=== PATIENT | male | born 1955 | race Caucasian/White ===

== ENCOUNTER 2016-03-28 11:35 | Inpatient (IN) | payer MEDICARE, OTHER ==
[~2016-03-28] VITALS: Ht 188 cm; Wt 80.4 kg
[~2016-03-28 11:35] MED LIST: AMIT10TA6 PO; AMIT25TA9 PO; ASP325T PO; ASP81TEC PO; ATEN100T88 PO; ATEN25TA; ATEN25TA PO; ATOR40TA PO; AZIT500T PO; Atenolol PO; CLOR7.5T3 PO; DIPH50VI2 IJ; DOCU100C37 PO; ESOM20CA PO; FLUT16SP22 NS; FLUT9.9S NS; FRSM40T PO; FURO20TA4 PO; FURO40TA PO; FURO40TA4 PO; HYDR-34 PO; HYDR-3812 PO; HYDR1TAB; HYDR1TAB PO; IPRA3AMP IH; IPRA3AMP11 INH; LISI-596 PO; LISI10TA; LISI10TA PO; LISI40TA PO; LORA10CA PO; LOVA20TA2 PO; MAGN400C PO; MAGNESIUM IV; MAGNESIUM SULFATE IV; METO-333 PO; METO100T2 PO; MTL5T PO; MULT-974 PO; NEBU1EAC2 MC; NF-ESOM40C PO; POTA-51 PO; POTA10TA36 PO; POTA20TA15 PO; POTA20TA8 PO; PRD20T PO; Prednisone PO; SODIUM CHLORIDE IV; SPIR25TA3 PO; SPIR50TA PO; VITA1TAB PO; [UNRECOGNIZED DRUG - CODE] IV
--- OUTSIDE RECORDS SUMMARY | 2016-03-28 12:08 | XMS REPORT | Continuity of Care Document ---
Author Author [facility] Organization [facility] Address Unknown Phone Unavailable Care Team Providers Care Gas Charger Name Role Phone Mary Jane Sanchez PCP [phone] Source Comments Some departments are not documenting in the electronic medical record. If you do not see the information that you expected, contact Release of Information in the Health Information Management department at [phone] for further assistance in locating additional records.[facility] Active Allergies and Adverse Reactions Not on [...]
[2016-03-28] MEDS ORDERED: fentaNYL INJECTION 100 MCG/2 ML AMP IV PRN (12:45)
[2016-03-28] MEDS ORDERED: PANTOPRAZOLE 40 MG/10 ML (PROTONIX) VIAL IV NR (13:00)
[2016-03-28 13:11] LABS: BASOPHILS % (AUTO) 0 % (0-10); EOSINOPHILS % (AUTO) 0 % (0-10); LYMPHOCYTES # (AUTO) 0.8 X 10^3 (1.0-4.0); LYMPHOCYTES % (AUTO) 5 % (12-44); MEAN CORPUSCULAR HEMOGLOBIN 33 PG (25-34); MEAN CORPUSCULAR HGB CONC 34 G/DL (32-36); MEAN CORPUSCULAR VOLUME 98 FL (80-99); MEAN PLATELET VOLUME 9.1 FL (7.4-10.4); MONOCYTES # (AUTO) 1.6 X 10^3 (0.0-1.0); MONOCYTES % (AUTO) 10 % (0-12); NEUTROPHILS # (AUTO) 14.6 X 10^3 (1.8-7.8); NEUTROPHILS % (AUTO) 86 % (42-75); PLATELET COUNT 428 10^3/uL (130-400); RED BLOOD COUNT 4.51 10^6/uL (4.35-5.85)
--- NOTE | 2016-03-28 13:23 | Diagnostic Imaging Report ---
INDICATION: Shortness of breath. PA and lateral chest: FINDINGS: There are postop changes from CABG surgery. Heart size and pulmonary vascularity are normal. Lungs are clear. There may be tiny left effusion. There is no pneumothorax. Left upper extremity PICC line tip projects over the SVC. IMPRESSION: Minimal blunting of the left costophrenic angle that could be pleural scarring versus a tiny effusion. Dictated by: Dictated on workstation # [id number]
[2016-03-28 13:29] LABS: BAND NEUTROPHILS 0 %; BASOPHILS % (MANUAL) 0 %; EOSINOPHILS % (MANUAL) 0 %; LYMPHOCYTES % (MANUAL) 5 %; NEUTROPHILS % (MANUAL) 86 %
[2016-03-28 13:32] LABS: ALBUMIN 4.7 G/DL (3.2-4.5); BILIRUBIN,TOTAL 0.5 MG/DL (0.1-1.0); CALCIUM 10.1 MG/DL (8.5-10.1); CREATININE SERUM 5.47 MG/DL (0.60-1.30); POTASSIUM 4.7 MMOL/L (3.6-5.0); TOTAL PROTEIN 8.6 G/DL (6.4-8.2)
[2016-03-28] MEDS ORDERED: ONDANSETRON 4 MG/2 ML (SDV) Z0FRAN ONE (13:33)
--- NOTE | 2016-03-28 13:41 | Diagnostic Imaging Report ---
PROCEDURE: CT abdomen and pelvis without contrast. TECHNIQUE: Multiple contiguous axial images were obtained through the abdomen and pelvis without the use of intravenous contrast. INDICATION: Abdominal distention. Intractable nausea and vomiting. FINDINGS: There is a small left pleural effusion and minimal left basilar atelectasis. There is dilatation of the stomach and multiple small bowel loops proximally. At the jejunoileal junction level, there is suggestion of transition point in the lower abdomen to the right of the midline around axial image #51 concerning for adhesions. There are bilateral indirect inguinal hernias containing bowel loops. These appear to be nonobstructive. The hernia on the left side is larger and extends to the scrotum and includes colon and small bowel loops. The level of obstruction does not appear to be related to the hernia. There are a few colonic diverticula. The liver, the gallbladder, the spleen, the adrenal glands, and the pancreas appear unremarkable for unenhanced exam. The abdominal aorta is normal in caliber. No para-aortic significantly enlarged lymph node is seen. The kidneys have no stones and no hydronephrosis. No significant free fluid or fluid collection in the abdomen or pelvis seen. The osseous structures demonstrate posterior fusion hardware involving L3-L5 levels. There is bony defect at the posterior medial aspect of the right iliac bone may relate to prior injury or bone graft donor site. IMPRESSION: High-grade distal jejunal obstruction with suggestion of a transition point in the lower abdomen to the right side of the midline. There are bilateral indirect inguinal hernias larger on the left side, and containing bowel loops extending to the scrotum. These do not appear to be responsible for the obstruction however. Dr. Sanchez was called and informed about the findings by Dr. Mclean at time of dictation Dictated by: Dictated on workstation # [id number]
[2016-03-28] MEDS: NS IV 1000 ML 1,000 ML IV SCH ×2 (13:44→20:27)
[2016-03-28] MEDS: ONDANSETRON 4 MG/2 ML (SDV) Z0FRAN IVP PRN (13:45)
[2016-03-28] MEDS: CATHETER FLUSH 10 ML SYR IV PRN (13:46)
[2016-03-28 14:22] LABS: ERYTHROCYTE SEDIMENTATION RATE 47 MM/HR (0-30)
[2016-03-28] MEDS ORDERED: LEVO50TA6 PO (14:27)
[2016-03-28] MEDS ORDERED: POTA20TA8 PO ×2 (14:27)
[2016-03-28] MEDS ORDERED: FURO-124 PO (14:39)
[2016-03-28] MEDS ORDERED: ESOM20CA32 PO (14:39)
[2016-03-28] MEDS ORDERED: HYDR-3812 PO (14:39)
[2016-03-28] MEDS ORDERED: DIPH50VI2 IV (14:45)
[2016-03-28] MEDS ORDERED: ACET325T38 PO (14:45)
[2016-03-28] MEDS ORDERED: MAGN1PIG IV (14:45)
[2016-03-28 15:30] VITALS: BP 120/76
[2016-03-28] MEDS: NICOTINE 21 MG (NICODERM) PATCH TD SCH (17:20)
[2016-03-28 19:25] VITALS: BP 96/62
[2016-03-28] MEDS: PANTOPRAZOLE 40 MG/10 ML (PROTONIX) VIAL IV SCH (20:27)
[2016-03-28] MEDS: LORazepam INJ 2 MG/ML (ATIVAN) VIAL IVP PRN (20:27)
--- NOTE | 2016-03-28 20:46 | History & Physicial ---
History of Present Illness History of Present Illness Reason for visit/HPI This is a 60 year old male who presented to my office today with a 2 day history of intractable nausea and vomiting and abdominal pain and distention. He had been seen at the [facility] walk-in clinic yesterday as he had not urinated for over 24hours. He states they said he had the viral stomach bug and sent him home. His condition worsened so he was brought to my office today where he was found to have a distended abdomen with no bowel sounds and there was concern for a small bowel obstruction. He was directly admitted from my office to the hospital. A CT scan of the abdomen and pelvis did confirm a small bowel obstruction so an NG tube was placed and surgery was consulted. Date of Admission Mar 28, 2016 at 12:00 pm I consulted on this patient on 03/28/16 20:41 Attending Physician Mary Jane Sanchez DO Admitting Physician Mary Jane Sanchez DO Consult Allergies and Home Medications Allergies Coded Allergies: morphine (Verified Adverse Reaction, Intermediate, CONFUSION, 12/04/14) Home Medications Acetaminophen 325 Mg Tablet 650 MG PO MoTh (Reported) Aspirin 81 Mg Tabec 81 MG PO Q48H (Reported) Diphenhydramine HCl 50 Mg/1 Ml Vial 25 MG IV MoTh (Reported) Esomeprazole Magnesium 22.3 Mg Capsule.dr 22.3 MG PO DAILY PRN PRN HEARTBURN ( Reported) Fluticasone Propionate 9.9 Ml [place].susp 1 SPR NS BID PRN PRN ALLERGIES ( Reported) Furosemide 40 Mg Tablet 80 MG PO Q48H (Reported) TAKES 2 (40MG) TABLETS Hydrocodone/Acetaminophen 1 Each Tablet 1 TAB PO Q4H PRN PRN PAIN (Reported) Ipratropium/Albuterol Sulfate 3 Ml Ampul.neb 3 ML IH QID (Reported) Levothyroxine Sodium 50 Mcg Tablet 50 MCG PO DAILY (Reported) Magnesium Sulfate/D5w 1 Gm/100 Ml Piggyback 2 GM IV MoTh (Reported) Metoprolol Tartrate 100 Mg Tablet 100 MG PO BID (Reported) Multivitamin 1 Each Tablet 1 TAB PO DAILY (Reported) Potassium Chloride 20 Meq Tab.er.prt 30 MEQ PO Q48H (Reported) TAKES 1 & 1/2 (20MEQ) TABLET Spironolactone 25 Mg Tablet 25 MG PO DAILY (Reported) Vitamin B Complex 1 Each Tablet 100 MG PO DAILY (Reported) Past Ikqqjsu-Kcnlrm-Bidsfy Hx Patient Social History Alcohol Use: Occasionally Uses Recreational Drug Use: No Smoking Status: Former Smoker Former smoker/When Quit: May 08, 2014 Type Used: Cigarettes Physical Abuse Screen: No Sexual Abuse: No Recent Foreign Travel: No Contact w/other who traveled: No Recent Hopitalizations: Yes Recent Infectious Disease Expo: No Immunizations Up To Date Tetanus Booster (TDap): Unknown Date of Pneumonia Vaccine: Nov 21, 2015 Date of Influenza Vaccine: Nov 21, 2015 Surgeries HX Surgeries: Yes (Left/right carotid, back (rods), neck sx, right leg, left ankle) Surgeries: CABG, Orthopedic, Vascular Surgery Respiratory Hx Respiratory Disorders: Yes (COPD, Home 02 at 2.5L ) Cardiovascular Hx Cardiovascular Disorders: Yes (CABG nov 2014, hypomagnesemia, low sodium level) Cardiac Disorders: Coronary Artery Disease, Hypertension Neurological Hx Neurological Disorders: No Reproductive System Hx Reproductive Disorders: No Sexually Transmitted Disease: No HIV/AIDS: No Genitourinary Hx Genitourinary Disorders: No Gastrointestinal Hx Gastrointestinal Disorders: No (inguinal hernia) Gastrointestinal Disorders: Gastroesophageal Reflux, Gastrointestinal Bleed Musculoskeletal Hx Musculoskeletal Disorders: Yes Musculoskeletal Disorders: Back Injury, Chronic Back Pain Endocrine Hx Endocrine Disorders: No HEENT HX ENT Disorders: Yes HEENT Disorders: Cataract Loss of Vision: Denies Hearing Impairment: Denies Cancer Hx Cancer: Yes Cancer: Skin Psychosocial Hx Psychiatric Problems: No Integumentary HX Skin/Integumentary Disorder: No Blood Transfusions Hx Blood Disorders: No Adverse Reaction to a Blood Tr: No Family Medical History Family Hx: Diabetes mellitus 19 FATHER 19 MOTHER FH: COPD (chronic obstructive pulmonary disease) 19 MOTHER Hypertension 19 FATHER 19 MOTHER Prostate cancer 19 FATHER Constitutional: weakness EENTM: No blurred vision, No dental problems, No double vision, No ear discharge, No ear pain, No epistaxis, No eye pain, No hearing loss, No hoarseness, No mouth pain, No mouth swelling, No no symptoms reported, No nose congestion, No nose pain, No other, No see HPI, No tearing, No throat pain, No throat swelling, No vision loss Respiratory: No no symptoms reported, No see HPI, No cough, No dyspnea on exertion, No hemoptysis, No orthopnea, No phlegm, No short of breath, No stridor , No wheezing, No other Cardiovascular: No no symptoms reported, No see HPI, No chest pain, No edema, No Hx of Intervention, No palpitations, No syncope, No vascular heart diseas, No other Gastrointestinal: abdominal pain loss of appetite nausea vomiting Genitourinary: decreased output Musculoskeletal: muscle weakness Skin: No no symptoms reported, No see HPI, No change in color, No change in hair/nails, No dryness, No hx of skin cancer, No lesions, No lumps, No pruritus , No rash, No other Psychiatric/Neurological: Weakness Physical Exam Vital Signs Vital Sign - Last 12Hours 03/28/16 03/28/16 12:10 15:30 Temp 97.1 Pulse 105 Resp 16 B/P 120/76 Pulse Ox 90 O2 Delivery Room Air Capillary Refill : General Appearance: Moderate Distress (due to pain) HEENT: Other (dry mucous membranes) Neck: Supple Respiratory: Lungs Clear Decreased Breath Sounds (bases) Cardiovascular: Systolic Murmur Gallop/S3 Tachycardia Gastrointestinal: Abnormal Bowel Sounds (rare) Distended Hernia (large bilateral inguinal--was able to reduce in my office) Tenderness (generalized) Rectal: Deferred Back: No CVA Tenderness Extremity: Non Tender No Calf Tenderness No Pedal Edema Neurologic/Psychiatric: Alert Oriented x3 Motor Weakness (generalized) Skin: Pallor Comments Laboratory Tests 03/28/16 13:01: Alanine Aminotransferase (ALT/SGPT) 15, Albumin 4.7H, Alkaline Phosphatase 80, Amylase Level 63, Anion Gap 20H, Aspartate Amino Transf (AST/SGOT) 20, BUN/ Creatinine Ratio 9, Band Neutrophils 0, Basophils # (Auto) 0.0, Basophils % ( Manual) 0, Basophils (%) (Auto) 0, Blood Morphology Comment NORMAL, Blood Urea Nitrogen 48H, Calcium Level 10.1, Carbon Dioxide Level 36H, Chloride Level 79L, Creatinine 5.47H, Eosinophils # (Auto) 0.0, Eosinophils % (Manual) 0, Eosinophils (%) (Auto) 0, Erythrocyte Sedimentation Rate 47H, Estimat Glomerular Filtration Rate 11, Glucose Level 128H, Hematocrit 44, Hemoglobin 15.1#, Lipase 9, Lymphocytes # (Auto) 0.8L, Lymphocytes % (Manual) 5, Lymphocytes (%) (Auto) 5L, Magnesium Level 2.0, Mean Corpuscular Hemoglobin 33, Mean Corpuscular Hemoglobin Concent 34, Mean Corpuscular Volume 98, Mean Platelet Volume 9.1, Monocytes # (Auto) 1.6H, Monocytes % (Manual) 9, Monocytes (%) (Auto) 10, Neutrophils # (Auto) 14.6H, Neutrophils % (Manual) 86, Neutrophils (%) (Auto) 86H, Platelet Count 428H, Potassium Level 4.7, Red Blood Count 4.51, Red Cell Distribution Width 13.0, Sodium Level 135, Total Bilirubin 0.5, Total Protein 8.6H, White Blood Count 17.0H Assessment/Plan Assessment and Plan 1. Acute Small Bowel Obstruction--NG tube, IV fentanyl prn, IV zofran prn, consult surgery 2. Acute Renal Failure from Dehydration--hydrate and monitor creatinine 3. COPD--stable 4. Bilateral Inguinal Hernias--reducible Clinical Quality Measures DVT/VTE Risk/Contraindication: Risk Factor Score Per Nursin RFS Level Per Nursing on Admit: 4+=Very High MARY JANE SANCHEZ DO Mar 28, 2016 8:46 pm
[2016-03-29 00:45] VITALS: BP 120/66
[2016-03-29] MEDS: fentaNYL INJECTION 100 MCG/2 ML AMP IV PRN ×6 (01:16→22:50)
[2016-03-29 01:30] LABS: BILIRUBIN,URINE NEGATIVE (NEGATIVE); KETONES,URINE NEGATIVE (NEGATIVE); LEUKOCYTE ESTERASE ,URINE NEGATIVE (NEGATIVE); NITRITE,URINE NEGATIVE (NEGATIVE); PH,URINE 5 (5-9); PROTEIN,URINE 3+ (NEGATIVE); UROBILINOGEN,URINE NORMAL (NORMAL)
[2016-03-29 01:39] LABS: CALCIUM OXALATE CRYSTALS,UR FEW /LPF; HYALINE CASTS, URINE 25-50 /LPF; SQUAMOUS EPITHELIAL CELL,UR 0-2 /HPF; WBC,URINE 0-2 /HPF
[2016-03-29] MEDS: NS IV 1000 ML 1,000 ML IV SCH ×3 (02:51→18:12)
[2016-03-29 03:15] VITALS: BP 136/88
[2016-03-29 05:39] LABS: BASOPHILS % (AUTO) 0 % (0-10); EOSINOPHILS # (AUTO) 0.1 10^3/uL (0.0-0.3); EOSINOPHILS % (AUTO) 1 % (0-10); LYMPHOCYTES # (AUTO) 0.9 X 10^3 (1.0-4.0); LYMPHOCYTES % (AUTO) 7 % (12-44); MEAN CORPUSCULAR HEMOGLOBIN 33 PG (25-34); MEAN CORPUSCULAR HGB CONC 34 G/DL (32-36); MEAN CORPUSCULAR VOLUME 99 FL (80-99); MEAN PLATELET VOLUME 9.2 FL (7.4-10.4); MONOCYTES # (AUTO) 1.7 X 10^3 (0.0-1.0); MONOCYTES % (AUTO) 13 % (0-12); NEUTROPHILS # (AUTO) 9.7 X 10^3 (1.8-7.8); NEUTROPHILS % (AUTO) 79 % (42-75); PLATELET COUNT 317 10^3/uL (130-400); RED BLOOD COUNT 4.02 10^6/uL (4.35-5.85); RED CELL DISTRIBUTION WIDTH 12.8 % (10.0-14.5); WHITE BLOOD COUNT 12.4 10^3/uL (4.3-11.0)
[2016-03-29 06:08] LABS: ALBUMIN 4.1 G/DL (3.2-4.5); BILIRUBIN,TOTAL 0.6 MG/DL (0.1-1.0); CALCIUM 8.5 MG/DL (8.5-10.1); CREATININE SERUM 6.53 MG/DL (0.60-1.30); MAGNESIUM 1.6 MG/DL (1.8-2.4); POTASSIUM 4.5 MMOL/L (3.6-5.0); TOTAL PROTEIN 7.2 G/DL (6.4-8.2)
[2016-03-29] MEDS: PANTOPRAZOLE 40 MG/10 ML (PROTONIX) VIAL IV SCH ×2 (07:57→20:30)
[2016-03-29] MEDS: NICOTINE PATCH REMOVAL TP SCH (07:59)
[2016-03-29 08:00] VITALS: BP 114/81
[2016-03-29] MEDS: NICOTINE 21 MG (NICODERM) PATCH TD SCH (08:11)
[2016-03-29] MEDS ORDERED: MAGNESIUM 1 GM/100 ML IVPB 100 ML IV ONE (08:45)
[2016-03-29] MEDS ORDERED: PANTOPRAZOLE 40 MG/10 ML (PROTONIX) VIAL IV SCH (09:00)
--- NOTE | 2016-03-29 10:22 | CONSULTATION REPORT ---
DATE OF ADMISSION: 03/28/2016 DATE OF CONSULTATION: 03/28/2016 ATTENDING PRIMARY CARE PHYSICIAN: Dr. Mary Jane Sanchez Mr. Raymond Petersen is a 60-year-old male known to us. We have seen him before in the past for placement of a left subclavian [place] implantable catheter for frequent IV draws as well as hypomagnesemia. This gentleman has had recurrent issues with hypomagnesemia requiring twice-weekly IV magnesium infusion. This gentleman was also seen for bilateral groin swelling. He reports that this has been around for some time however, over the years, has become larger and painful. Upon examination, he was found to have bilateral inguinal hernias with the left being significantly larger in size. Both are reducible, however painful to palpation. This gentleman also has had issues with electrolyte abnormalities as well as hypomagnesemia, again and chronic renal insufficiency with BUN and creatinine elevation. He also does have episodes of fluid retention and exacerbation of COPD, with shortness of breath. He reports that he had developed abdominal distention and nausea and vomiting starting yesterday. Due to this he has become dehydrated. A CT scan was performed, which did show worsening renal azotemia, as well as leukocytosis and abdominal pain and distention. A CT scan was performed, which did show a dilated stomach, as well as dilated proximal loops of small bowel with possible transition zone at the jejunum. Again, the bilateral inguinal hernias were identified but do not appear to be the cause of obstruction at this time. He does not have any peritoneal signs and this time. PAST MEDICAL HISTORY: 1. Hypertension. 2. Peripheral vascular disease. 3. Coronary artery disease. 4. Degenerative joint disease. 5. Hypomagnesemia. 6. Peptic ulcer disease. 7. Gastroesophageal reflux disease. 8. Renal failure. 9. COPD. PAST SURGERIES: 1. Bilateral carotid endarterectomy 2008. 2. Lumbar ORIF 1996. 3. C3-C5 ORIF 1996. 4. Bilateral ankle ORIF . 5. Exploratory laparotomy and oversew of bleeding peptic ulcer 2009. 6. Coronary artery bypass grafting 11/2014. ALLERGIES: MORPHINE MEDICATIONS: 1. Lisinopril 40 mg daily. 2. Magnesium IV twice weekly. 3. Atenolol 100 mg daily. 4. Nexium 10 mg daily. 5. Amitriptyline 10 mg at bedtime. 6. Aspirin 81 mg daily. 7. Furosemide 40 mg daily. 8. Fluticasone spray b.i.d. SOCIAL HISTORY: Positive smoke greater than 45 pack-years. He appears to be a daily social drinker. FAMILY HISTORY: Father prostate cancer. Mother and father diabetes. VITAL SIGNS: Stable. REVIEW OF SYSTEMS: This is a well-nourished male, currently guarded secondary to the abdominal distention and crampy pain. No chest pain, palpitations, diaphoresis. No nausea, vomiting. He does have exertional shortness of breath upon ambulation, nausea and vomiting, with crampy abdominal pain with associated distention. He states bowel movements are regular, however has not had one in the past day. No fever, chills, no recent inadvertent weight loss. PHYSICAL EXAMINATION: CHEST: Scattered rales and rhonchi, expiratory wheezes bilaterally. HEART: Regular. EXTREMITIES: +1 out of 3 bilateral lower extremity edema. Negative Homans sign. HEENT: No scleral icterus. No cervical lymphadenopathy. ABDOMEN: Distended soft with no peritoneal signs. There is bilateral inguinal hernias with the left larger in size, both of reducible; however, tender to palpation. LABS: WBC 17, hemoglobin 15.1, hematocrit 44, platelets 428. BUN 48, creatinine 5.47, glucose 128, magnesium 2.0, albumin is 4.7. ASSESSMENT AND PLAN: This is a 60-year-old male with abdominal pain and distention and signs and symptoms of proximal small bowel obstruction most likely secondary to adhesion tissue. He also does have bilateral inguinal hernias which are symptomatic, We have known about this and we are planning to repair this when he was more medically stable. This gentleman has had multiple medical issues and exacerbation of these medical problems in the past few years including the coronary artery disease, requiring surgery worsening, COPD, renal dysfunction, as well as hypomagnesemia and overall weakness and debility. We will continue with conservative management for now with IV hydration and NG tube decompression, as well as correction of any electrolyte abnormalities. If this persists, he may need a diagnostic laparoscopy versus a full laparotomy. At that same time, he may also benefit from bilateral inguinal hernia repairs, if there are no signs of infection or perforation. We will continue to follow his medical progress and follow his primary care physician as well. Job ID: [id number] Dictated Date: 03/28/2016 16:14:21 Superintendent System Operation Date: 03/29/2016 10:05:48/moises
--- NOTE | 2016-03-29 11:32 | Progress Note (SOAP) ---
Subjective Subjective/Events-last exam doing ok. worsening renal failure. passing flatus and decreased abdominal distention. Objective Exam Vital Signs Date Time Temp Pulse Resp B/P Pulse Ox O2 Delivery O2 Flow Rate FiO2 03/29/16 08:41 Room Air 03/29/16 08:00 97.9 67 20 114/81 94 Nasal Cannula 3.00 03/29/16 07:00 101 03/29/16 06:45 3.00 03/29/16 03:15 98.5 97 18 136/88 95 Nasal Cannula 3.00 03/29/16 01:00 114 03/29/16 00:45 98.2 101 20 120/66 96 Nasal Cannula 3.00 03/28/16 21:00 Room Air 03/28/16 19:25 96.4 104 20 96/62 91 Room Air 03/28/16 19:00 101 03/28/16 16:07 107 03/28/16 15:30 97.1 105 16 120/76 90 Room Air 03/28/16 12:10 Room Air I & O 03/29/16 07:00 Intake Total 0 ml Output Total 3525 ml Balance -3525 ml Capillary Refill : General Appearance: No Apparent Distress HEENT: PERRL/EOMI Neck: Full Range of Motion Respiratory: Chest Non Tender Lungs Clear Normal Breath Sounds Cardiovascular: Regular Rate, Rhythm Gastrointestinal: non tender soft distended Extremity: Normal Capillary Refill Neurologic/Psychiatric: Alert Oriented x3 Skin: Normal Color Lymphatic: No Adenopathy Results Lab Laboratory Tests 03/28/16 13:01: Alanine Aminotransferase (ALT/SGPT) 15, Albumin 4.7H, Alkaline Phosphatase 80, Amylase Level 63, Anion Gap 20H, Aspartate Amino Transf (AST/SGOT) 20, BUN/ Creatinine Ratio 9, Band Neutrophils 0, Basophils # (Auto) 0.0, Basophils % ( Manual) 0, Basophils (%) (Auto) 0, Blood Morphology Comment NORMAL, Blood Urea Nitrogen 48H, Calcium Level 10.1, Carbon Dioxide Level 36H, Chloride Level 79L, Creatinine 5.47H, Eosinophils # (Auto) 0.0, Eosinophils % (Manual) 0, Eosinophils (%) (Auto) 0, Erythrocyte Sedimentation Rate 47H, Estimat Glomerular Filtration Rate 11, Glucose Level 128H, Hematocrit 44, Hemoglobin 15.1#, Lipase 9, Lymphocytes # (Auto) 0.8L, Lymphocytes % (Manual) 5, Lymphocytes (%) (Auto) 5L, Magnesium Level 2.0, Mean Corpuscular Hemoglobin 33, Mean Corpuscular Hemoglobin Concent 34, Mean Corpuscular Volume 98, Mean Platelet Volume 9.1, Monocytes # (Auto) 1.6H, Monocytes % (Manual) 9, Monocytes (%) (Auto) 10, Neutrophils # (Auto) 14.6H, Neutrophils % (Manual) 86, Neutrophils (%) (Auto) 86H, Platelet Count 428H, Potassium Level 4.7, Red Blood Count 4.51, Red Cell Distribution Width 13.0, Sodium Level 135, Total Bilirubin 0.5, Total Protein 8.6H, White Blood Count 17.0H 03/29/16 01:05: Urine Bacteria FEWH, Urine Bilirubin NEGATIVE, Urine Calcium Oxalate Crystals FEWH, Urine Casts PRESENT, Urine Clarity SLIGHTLY CLOUDY, Urine Color YELLOW, Urine Crystals PRESENTH, Urine Culture Indicated YES, Urine Glucose (UA) NEGATIVE, Urine Hyaline Casts 25-50H, Urine Ketones NEGATIVE, Urine Leukocyte Esterase NEGATIVE, Urine Mucus NEGATIVE, Urine Nitrite NEGATIVE, Urine Protein 3 +H, Urine RBC NONE, Urine RBC (Auto) NEGATIVE, Urine Specific [place] 1.015L, Urine Squamous Epithelial Cells 0-2, Urine Urobilinogen NORMAL, Urine WBC 0-2, Urine pH 5 03/29/16 05:15: Alanine Aminotransferase (ALT/SGPT) 12, Albumin 4.1, Alkaline Phosphatase 58, Anion Gap 19H, Aspartate Amino Transf (AST/SGOT) 17, BUN/Creatinine Ratio 9, Basophils # (Auto) 0.0, Basophils (%) (Auto) 0, Blood Urea Nitrogen 62H, Calcium Level 8.5, Carbon Dioxide Level 32, Chloride Level 85L, Creatinine 6.53H , Eosinophils # (Auto) 0.1, Eosinophils (%) (Auto) 1, Estimat Glomerular Filtration Rate 9, Glucose Level 110H, Hematocrit 40, Hemoglobin 13.4, Lymphocytes # (Auto) 0.9L, Lymphocytes (%) (Auto) 7L, Magnesium Level 1.6L, Mean Corpuscular Hemoglobin 33, Mean Corpuscular Hemoglobin Concent 34, Mean Corpuscular Volume 99, Mean Platelet Volume 9.2, Monocytes # (Auto) 1.7H, Monocytes (%) (Auto) 13H, Neutrophils # (Auto) 9.7H, Neutrophils (%) (Auto) 79H , Platelet Count 317, Potassium Level 4.5, Red Blood Count 4.02L, Red Cell Distribution Width 12.8, Sodium Level 136, Total Bilirubin 0.6, Total Protein 7.2, White Blood Count 12.4H Assessment/Plan Assessment/Plan Assess & Plan/Chief Complaint PSBO and bilateral inguinal hernia. PSBO likely upper 1/3 small bowel from adhesions. worsening renal failure. will continue conservative management with NGT, IV fluids and bowel rest. Diagnosis/Problems: Clinical Quality Measures DVT/VTE Risk/Contraindication: Risk Factor Score Per Nursin RFS Level Per Nursing on Admit: 4+=Very High BRITTANY CHAPA MD Mar 29, 2016 11:32
[2016-03-29 12:00] VITALS: BP 124/87
--- NOTE | 2016-03-29 12:57 | Progress Note (SOAP) ---
Subjective Subjective/Events-last exam Fwup small bowel obstruction, acute renal failure, dehydration, COPD. Feeling much better. Passing flatus. Only small amount of urine this morning. Objective Exam Vital Signs Date Time Temp Pulse Resp B/P Pulse Ox O2 Delivery O2 Flow Rate FiO2 03/29/16 08:41 Room Air 03/29/16 08:00 97.9 67 20 114/81 94 Nasal Cannula 3.00 03/29/16 07:00 101 03/29/16 06:45 3.00 03/29/16 03:15 98.5 97 18 136/88 95 Nasal Cannula 3.00 03/29/16 01:00 114 03/29/16 00:45 98.2 101 20 120/66 96 Nasal Cannula 3.00 03/28/16 21:00 Room Air 03/28/16 19:25 96.4 104 20 96/62 91 Room Air 03/28/16 19:00 101 03/28/16 16:07 107 03/28/16 15:30 97.1 105 16 120/76 90 Room Air I & O 03/29/16 07:00 Intake Total 0 ml Output Total 3525 ml Balance -3525 ml Capillary Refill : General Appearance: No Apparent Distress HEENT: Other (NG tube in place) Neck: Supple Respiratory: Lungs Clear Decreased Breath Sounds Cardiovascular: Regular Rate, Rhythm Gallop/S3 Gastrointestinal: normal bowel sounds non tender soft Extremity: Non Tender No Calf Tenderness No Pedal Edema Neurologic/Psychiatric: Alert Oriented x3 Results Lab Laboratory Tests 03/28/16 13:01: Alanine Aminotransferase (ALT/SGPT) 15, Albumin 4.7H, Alkaline Phosphatase 80, Amylase Level 63, Anion Gap 20H, Aspartate Amino Transf (AST/SGOT) 20, BUN/ Creatinine Ratio 9, Band Neutrophils 0, Basophils # (Auto) 0.0, Basophils % ( Manual) 0, Basophils (%) (Auto) 0, Blood Morphology Comment NORMAL, Blood Urea Nitrogen 48H, Calcium Level 10.1, Carbon Dioxide Level 36H, Chloride Level 79L, Creatinine 5.47H, Eosinophils # (Auto) 0.0, Eosinophils % (Manual) 0, Eosinophils (%) (Auto) 0, Erythrocyte Sedimentation Rate 47H, Estimat Glomerular Filtration Rate 11, Glucose Level 128H, Hematocrit 44, Hemoglobin 15.1#, Lipase 9, Lymphocytes # (Auto) 0.8L, Lymphocytes % (Manual) 5, Lymphocytes (%) (Auto) 5L, Magnesium Level 2.0, Mean Corpuscular Hemoglobin 33, Mean Corpuscular Hemoglobin Concent 34, Mean Corpuscular Volume 98, Mean Platelet Volume 9.1, Monocytes # (Auto) 1.6H, Monocytes % (Manual) 9, Monocytes (%) (Auto) 10, Neutrophils # (Auto) 14.6H, Neutrophils % (Manual) 86, Neutrophils (%) (Auto) 86H, Platelet Count 428H, Potassium Level 4.7, Red Blood Count 4.51, Red Cell Distribution Width 13.0, Sodium Level 135, Total Bilirubin 0.5, Total Protein 8.6H, White Blood Count 17.0H 03/29/16 01:05: Urine Bacteria FEWH, Urine Bilirubin NEGATIVE, Urine Calcium Oxalate Crystals FEWH, Urine Casts PRESENT, Urine Clarity SLIGHTLY CLOUDY, Urine Color YELLOW, Urine Crystals PRESENTH, Urine Culture Indicated YES, Urine Glucose (UA) NEGATIVE, Urine Hyaline Casts 25-50H, Urine Ketones NEGATIVE, Urine Leukocyte Esterase NEGATIVE, Urine Mucus NEGATIVE, Urine Nitrite NEGATIVE, Urine Protein 3 +H, Urine RBC NONE, Urine RBC (Auto) NEGATIVE, Urine Specific [place] 1.015L, Urine Squamous Epithelial Cells 0-2, Urine Urobilinogen NORMAL, Urine WBC 0-2, Urine pH 5 03/29/16 05:15: Alanine Aminotransferase (ALT/SGPT) 12, Albumin 4.1, Alkaline Phosphatase 58, Anion Gap 19H, Aspartate Amino Transf (AST/SGOT) 17, BUN/Creatinine Ratio 9, Basophils # (Auto) 0.0, Basophils (%) (Auto) 0, Blood Urea Nitrogen 62H, Calcium Level 8.5, Carbon Dioxide Level 32, Chloride Level 85L, Creatinine 6.53H , Eosinophils # (Auto) 0.1, Eosinophils (%) (Auto) 1, Estimat Glomerular Filtration Rate 9, Glucose Level 110H, Hematocrit 40, Hemoglobin 13.4, Lymphocytes # (Auto) 0.9L, Lymphocytes (%) (Auto) 7L, Magnesium Level 1.6L, Mean Corpuscular Hemoglobin 33, Mean Corpuscular Hemoglobin Concent 34, Mean Corpuscular Volume 99, Mean Platelet Volume 9.2, Monocytes # (Auto) 1.7H, Monocytes (%) (Auto) 13H, Neutrophils # (Auto) 9.7H, Neutrophils (%) (Auto) 79H , Platelet Count 317, Potassium Level 4.5, Red Blood Count 4.02L, Red Cell Distribution Width 12.8, Sodium Level 136, Total Bilirubin 0.6, Total Protein 7.2, White Blood Count 12.4H Assessment/Plan Assessment/Plan Assess & Plan/Chief Complaint 1. Small Bowel Obstruction--continue NG tube and pain control 2. Acute Renal Failure/Dehydration--continue IVF and monitor Cr 3. COPD--stable 4. Hypomagnesemia--replace Mg Diagnosis/Problems: Clinical Quality Measures DVT/VTE Risk/Contraindication: Risk Factor Score Per Nursin RFS Level Per Nursing on Admit: 4+=Very High AIME CANO DO Mar 29, 2016 12:57 pm
[2016-03-29 16:00] VITALS: BP 135/72
[2016-03-29] MEDS: LORazepam INJ 2 MG/ML (ATIVAN) VIAL IVP PRN (16:50)
[2016-03-29 20:00] VITALS: BP 127/82
[2016-03-30] VITALS: BP 144/94
[2016-03-30] MEDS: NS IV 1000 ML 1,000 ML IV SCH ×5 (01:00→22:25)
[2016-03-30] MEDS: fentaNYL INJECTION 100 MCG/2 ML AMP IV PRN ×8 (01:06→19:50)
[2016-03-30 04:00] VITALS: BP 138/87
[2016-03-30 06:21] LABS: BASOPHILS % (AUTO) 0 % (0-10); EOSINOPHILS # (AUTO) 0.2 10^3/uL (0.0-0.3); EOSINOPHILS % (AUTO) 2 % (0-10); LYMPHOCYTES # (AUTO) 0.7 X 10^3 (1.0-4.0); LYMPHOCYTES % (AUTO) 7 % (12-44); MEAN CORPUSCULAR HEMOGLOBIN 33 PG (25-34); MEAN CORPUSCULAR HGB CONC 33 G/DL (32-36); MEAN CORPUSCULAR VOLUME 100 FL (80-99); MEAN PLATELET VOLUME 9.4 FL (7.4-10.4); MONOCYTES # (AUTO) 1.6 X 10^3 (0.0-1.0); MONOCYTES % (AUTO) 16 % (0-12); NEUTROPHILS # (AUTO) 7.2 X 10^3 (1.8-7.8); NEUTROPHILS % (AUTO) 75 % (42-75); PLATELET COUNT 338 10^3/uL (130-400); RED BLOOD COUNT 3.74 10^6/uL (4.35-5.85); RED CELL DISTRIBUTION WIDTH 12.6 % (10.0-14.5); WHITE BLOOD COUNT 9.6 10^3/uL (4.3-11.0)
[2016-03-30 06:39] LABS: CALCIUM 8.5 MG/DL (8.5-10.1); CREATININE SERUM 3.51 MG/DL (0.60-1.30); POTASSIUM 3.5 MMOL/L (3.6-5.0)
[2016-03-30 08:00] VITALS: BP 145/84
[2016-03-30] MEDS: NICOTINE 21 MG (NICODERM) PATCH TD SCH (08:20)
[2016-03-30] MEDS: PANTOPRAZOLE 40 MG/10 ML (PROTONIX) VIAL IV SCH ×2 (08:21→20:28)
[2016-03-30] MEDS: NICOTINE PATCH REMOVAL TP SCH (08:22)
--- NOTE | 2016-03-30 13:24 | Diagnostic Imaging Report ---
INDICATION: Bowel obstruction. COMPARISON: Correlation is limited to a CT performed on 07/17/2014. FINDINGS: There are air/fluid levels within abnormal small bowel dilatation in the mid to upper abdomen. The pattern is strongly suggestive of a substantial grade of small bowel obstruction. The air-containing luminal diameter of the small bowel in the right upper quadrant was 7.3 cm maximally. There is a small amount of air within the nondistended lower rectal vault. No abnormal stool volume. The remaining large bowel is airless aside from a small amount of gas at its hepatic flexure. There is a catheter in the stomach. IMPRESSION: The findings are suggestive of likely mid small bowel obstruction. There is an NG or OG catheter in the stomach. Dictated by: Dictated on workstation # [id number]
--- NOTE | 2016-03-30 13:42 | Progress Note (SOAP) ---
Subjective Subjective/Events-last exam passing flatus but no BM. getting SBFT today. Objective Exam Vital Signs Date Time Temp Pulse Resp B/P Pulse Ox O2 Delivery O2 Flow Rate FiO2 03/30/16 04:00 98.2 103 20 138/87 94 Nasal Cannula 3.00 03/30/16 01:00 110 03/30/16 00:00 97.4 114 22 144/94 93 Room Air 03/29/16 20:30 Room Air 03/29/16 20:00 97.3 114 18 127/82 97 Nasal Cannula 3.00 03/29/16 19:00 110 03/29/16 16:00 97.9 115 18 135/72 97 Nasal Cannula 3.00 I & O 03/30/16 07:00 Intake Total 3360 ml Output Total 6170 ml Balance -2810 ml Capillary Refill : General Appearance: No Apparent Distress HEENT: PERRL/EOMI Neck: Full Range of Motion Respiratory: Chest Non Tender Lungs Clear Normal Breath Sounds Cardiovascular: Regular Rate, Rhythm Gastrointestinal: normal bowel sounds Extremity: Normal Capillary Refill Neurologic/Psychiatric: Alert Oriented x3 Skin: Normal Color Lymphatic: No Adenopathy Results Lab Laboratory Tests 03/30/16 05:39: Anion Gap 17H, BUN/Creatinine Ratio 16, Basophils # (Auto) 0.0, Basophils (%) ( Auto) 0, Blood Urea Nitrogen 57H, Calcium Level 8.5, Carbon Dioxide Level 27, Chloride Level 92L, Creatinine 3.51H, Eosinophils # (Auto) 0.2, Eosinophils (%) (Auto) 2, Estimat Glomerular Filtration Rate 18, Glucose Level 87, Hematocrit 38L, Hemoglobin 12.4L, Lymphocytes # (Auto) 0.7L, Lymphocytes (%) (Auto) 7L, Mean Corpuscular Hemoglobin 33, Mean Corpuscular Hemoglobin Concent 33, Mean Corpuscular Volume 100H, Mean Platelet Volume 9.4, Monocytes # (Auto) 1.6H, Monocytes (%) (Auto) 16H, Neutrophils # (Auto) 7.2, Neutrophils (%) (Auto) 75, Platelet Count 338, Potassium Level 3.5L, Red Blood Count 3.74L, Red Cell Distribution Width 12.6, Sodium Level 136, White Blood Count 9.6 Microbiology 03/29/16 Urine Culture - Final, Complete Assessment/Plan Assessment/Plan Assess & Plan/Chief Complaint PSBO and bilateral inguinal hernia. PSBO likely upper 1/3 small bowel from adhesions. renal function improving. will continue conservative management with NGT, IV fluids and bowel rest. will get SBFT. Diagnosis/Problems: Clinical Quality Measures DVT/VTE Risk/Contraindication: Risk Factor Score Per Nursin RFS Level Per Nursing on Admit: 4+=Very High BRITTANY CHAPA MD Mar 30, 2016 1:42 pm
[2016-03-30 16:00] VITALS: BP 145/93
[2016-03-30] MEDS: LORazepam INJ 2 MG/ML (ATIVAN) VIAL IVP PRN (16:12)
[2016-03-30] MEDS: ONDANSETRON 4 MG/2 ML (SDV) Z0FRAN IVP PRN (17:45)
--- NOTE | 2016-03-30 18:12 | Progress Note (SOAP) ---
Subjective Subjective/Events-last exam Fwup small bowel obstruction, acute renal failure, dehydration, COPD. Passing flatus. Objective Exam Vital Signs Date Time Temp Pulse Resp B/P Pulse Ox O2 Delivery O2 Flow Rate FiO2 03/30/16 16:00 97.5 110 22 145/93 92 Nasal Cannula 3.00 03/30/16 14:04 3.00 03/30/16 08:00 98.8 110 24 145/84 93 Nasal Cannula 3.00 03/30/16 04:00 98.2 103 20 138/87 94 Nasal Cannula 3.00 03/30/16 01:00 110 03/30/16 00:00 97.4 114 22 144/94 93 Room Air 03/29/16 20:30 Room Air 03/29/16 20:00 97.3 114 18 127/82 97 Nasal Cannula 3.00 03/29/16 19:00 110 I & O 03/30/16 07:00 Intake Total 3360 ml Output Total 6170 ml Balance -2810 ml Capillary Refill : General Appearance: No Apparent Distress HEENT: Other (NG tube in place) Respiratory: Lungs Clear Decreased Breath Sounds (bases) Cardiovascular: Regular Rate, Rhythm Systolic Murmur Gallop/S3 Gastrointestinal: non tender abnormal bowel sounds (hypoactive) distended ( mild) Extremity: Non Tender No Calf Tenderness No Pedal Edema Neurologic/Psychiatric: Alert Oriented x3 Results Lab Laboratory Tests 03/30/16 05:39: Anion Gap 17H, BUN/Creatinine Ratio 16, Basophils # (Auto) 0.0, Basophils (%) ( Auto) 0, Blood Urea Nitrogen 57H, Calcium Level 8.5, Carbon Dioxide Level 27, Chloride Level 92L, Creatinine 3.51H, Eosinophils # (Auto) 0.2, Eosinophils (%) (Auto) 2, Estimat Glomerular Filtration Rate 18, Glucose Level 87, Hematocrit 38L, Hemoglobin 12.4L, Lymphocytes # (Auto) 0.7L, Lymphocytes (%) (Auto) 7L, Mean Corpuscular Hemoglobin 33, Mean Corpuscular Hemoglobin Concent 33, Mean Corpuscular Volume 100H, Mean Platelet Volume 9.4, Monocytes # (Auto) 1.6H, Monocytes (%) (Auto) 16H, Neutrophils # (Auto) 7.2, Neutrophils (%) (Auto) 75, Platelet Count 338, Potassium Level 3.5L, Red Blood Count 3.74L, Red Cell Distribution Width 12.6, Sodium Level 136, White Blood Count 9.6 Microbiology 03/29/16 Urine Culture - Final, Complete Assessment/Plan Assessment/Plan Assess & Plan/Chief Complaint 1. Small Bowel Obstruction--continue NG tube and pain control, small bowel follow through today 2. Acute Renal Failure/Dehydration--continue IVF and monitor Cr--Cr improved this AM 3. COPD--stable 4. Hypomagnesemia--recheck magnesium level in AM Diagnosis/Problems: Clinical Quality Measures DVT/VTE Risk/Contraindication: Risk Factor Score Per Nursin RFS Level Per Nursing on Admit: 4+=Very High AIME CANO DO Mar 30, 2016 18:12
[2016-03-30 19:35] VITALS: BP 136/84
[2016-03-30] MEDS ORDERED: DILTIAZEM 25 MG/5 ML INJ (CARDIZEM) VIAL IVP ONE (20:40)
[2016-03-30] MEDS ORDERED: DILTIAZEM 25 MG/5 ML INJ (CARDIZEM) VIAL ONE (20:45)
[2016-03-30] MEDS ORDERED: meTOprolol 5 MG/5 ML (LOPRESSOR) VIAL ONE (20:51)
[2016-03-30] MEDS: meTOprolol 5 MG/5 ML (LOPRESSOR) VIAL IV SCH (20:54)
[2016-03-30] MEDS ORDERED: MAGNESIUM 1 GM/100 ML IVPB 100 ML IV ONE ×2 (21:10→21:30)
[2016-03-30] MEDS ORDERED: ENOXAPARIN 80 MG/0.8 ML (LOVENOX) SYR SC ONE (22:00)
[2016-03-31] VITALS (41 sets, daily range): BP systolic 71–138; BP diastolic 41–87
[2016-03-31] MEDS ORDERED: SODIUM CHLORIDE (ADD-VANTAGE) 100 ML IV ONE (00:20)
[2016-03-31] MEDS ORDERED: DILTIAZEM 100 MG/VIAL (CARDIZEM) ADD-VANTAGE IV ONE (00:20)
[2016-03-31] MEDS: DILTIAZEM DRIP 100 MG in SODIUM CHLORIDE (ADD-VANTAGE) 100 ML IV SCH (00:25)
[2016-03-31] MEDS: LORazepam INJ 2 MG/ML (ATIVAN) VIAL IVP PRN ×3 (00:26→21:48)
[2016-03-31] MEDS: fentaNYL INJECTION 100 MCG/2 ML AMP IV PRN ×5 (00:26→21:48)
[2016-03-31] MEDS: meTOprolol 5 MG/5 ML (LOPRESSOR) VIAL IV SCH ×6 (04:00→20:52)
[2016-03-31 05:08] LABS: BASOPHILS % (AUTO) 0 % (0-10); EOSINOPHILS # (AUTO) 0.1 10^3/uL (0.0-0.3); EOSINOPHILS % (AUTO) 2 % (0-10); LYMPHOCYTES # (AUTO) 1.3 X 10^3 (1.0-4.0); LYMPHOCYTES % (AUTO) 17 % (12-44); MEAN CORPUSCULAR HEMOGLOBIN 33 PG (25-34); MEAN CORPUSCULAR HGB CONC 33 G/DL (32-36); MEAN CORPUSCULAR VOLUME 102 FL (80-99); MEAN PLATELET VOLUME 9.2 FL (7.4-10.4); MONOCYTES # (AUTO) 1.5 X 10^3 (0.0-1.0); MONOCYTES % (AUTO) 20 % (0-12); NEUTROPHILS # (AUTO) 4.7 X 10^3 (1.8-7.8); NEUTROPHILS % (AUTO) 61 % (42-75); PLATELET COUNT 328 10^3/uL (130-400); RED BLOOD COUNT 3.75 10^6/uL (4.35-5.85); RED CELL DISTRIBUTION WIDTH 12.4 % (10.0-14.5); WHITE BLOOD COUNT 7.7 10^3/uL (4.3-11.0)
[2016-03-31] MEDS: NS IV 1000 ML 1,000 ML IV SCH ×4 (05:24→17:12)
[2016-03-31 05:27] LABS: BAND NEUTROPHILS 3 %; BASOPHILS % (MANUAL) 0 %; EOSINOPHILS % (MANUAL) 0 %; LYMPHOCYTES % (MANUAL) 16 %; NEUTROPHILS % (MANUAL) 55 %; REACTIVE LYMPHOCYTES 2 %
[2016-03-31 05:32] LABS: ALBUMIN 3.5 G/DL (3.2-4.5); BILIRUBIN,TOTAL 0.5 MG/DL (0.1-1.0); CALCIUM 8.6 MG/DL (8.5-10.1); CREATININE SERUM 2.46 MG/DL (0.60-1.30); MAGNESIUM 2.2 MG/DL (1.8-2.4); PHOSPHORUS 4.9 MG/DL (2.3-4.7); POTASSIUM 3.2 MMOL/L (3.6-5.0); TOTAL PROTEIN 6.2 G/DL (6.4-8.2)
[2016-03-31] MEDS ORDERED: POTASSIUM CL 10MEQ/50ML IVPB 50 ML IV SCH (06:00)
[2016-03-31] MEDS: MAGNESIUM 1 GM/100 ML IVPB 100 ML IV SCH (06:00)
[2016-03-31] MEDS ORDERED: MAGNESIUM 1 GM/100 ML IVPB 100 ML IV SCH (06:00)
[2016-03-31] MEDS: POTASSIUM CL 10MEQ/50ML IVPB 50 ML IV SCH ×5 (06:00→09:52)
[2016-03-31] MEDS ORDERED: KCL 20 MEQ TAB (K-DUR) PO SCH (06:00)
[2016-03-31] MEDS: KCL 20 MEQ TAB (K-DUR) PO SCH (06:00)
--- NOTE | 2016-03-31 08:00 | Diagnostic Imaging Report ---
INDICATION: Dyspnea 0508 hrs. Since 03/28/2016, there is persistent air trapping. Interstitial markings are prominent in both lungs. There is blunting of left costophrenic sulcus. Nasogastric tube passes below the diaphragm with side port in the distal esophagus. Postoperative changes in the neck are again noted. IMPRESSION: Air trapping with small amount of left pleural fluid and/or thickening. There is no evidence of pneumothorax or other significant change. Dictated by: Dictated on workstation # [id number]
[2016-03-31] MEDS: PANTOPRAZOLE 40 MG/10 ML (PROTONIX) VIAL IV SCH ×2 (08:11→20:52)
[2016-03-31] MEDS: NICOTINE PATCH REMOVAL TP SCH (08:11)
[2016-03-31] MEDS: NICOTINE 21 MG (NICODERM) PATCH TD SCH (08:11)
--- NOTE | 2016-03-31 09:15 | Diagnostic Imaging Report ---
EXAMINATION: Gastrografin small bowel follow through. INDICATION: Small bowel obstruction. TECHNIQUE: Cloud Architect image of the abdomen was performed. Subsequently, the patient was given Gastrografin administered via NG tube and serial images of the abdomen were obtained. FINDINGS: Cloud Architect image of the abdomen demonstrate significantly dilated small bowel loops. No significant abnormality. There is only partial emptying of the contrast from the stomach into the proximal small bowel loops which are significantly dilated. At 7 hours there is still contrast mainly in the dilated proximal small bowel loops. The NG tube was pulled back to suction around the 7 hours film. A followup KUB taken at 19 hours demonstrate a minimal amount of contrast remaining with persistent dilatation of the proximal small bowel loops. There is some air in the rectum and distal colon seen. The lumbar spine fusion hardware is noted. IMPRESSION: Findings are suggestive of a high-grade proximal partial small bowel obstruction. Dictated by: Dictated on workstation # [id number]
[2016-03-31] MEDS: ONDANSETRON 4 MG/2 ML (SDV) Z0FRAN IVP PRN (12:24)
[2016-03-31] MEDS ORDERED: DIGOXIN 0.25 MG/ML (LANOXIN) 2 ML AMP ONE (13:38)
[2016-03-31] MEDS ORDERED: DIGOXIN 0.25 MG/ML (LANOXIN) 2 ML AMP IV NR ×2 (13:45→20:00)
--- NOTE | 2016-03-31 13:51 | Consultation-Cardiology ---
HPI-Cardiology Cardiology Consultation Date of Consultation 03/31/16 Date of Admission Indication: Afib with RVR HPI Patient is a 60 y.o. male with history of CAD, CHF, HTP, COPD, PAF. Presented to his PCP's office earlier this week with complains of intractable N/V with oliguria x 2-3 days. Was directly admitted, found to have SBO. NG tube currently in place. We were called for consultation after patient converted to afib last night. Currently in afib with RVR with HR in the 120-130's. Denies any CP, palpitations. Denies lightheadedness or syncope. Currently on Cardizem gtt as BP tolerates. Patient was seen and evaluated, he is a 60 years old gentleman with history of coronary artery disease, paroxysmal atrial fibrillation, COPD and pulmonary hypertension, admitted with abdominal distention and intractable nausea and vomiting, noted to have small bowel obstruction. Has been managed with conservatively with Dr. Stephens, last night he had atrial fibrillation with rapid ventricular response, transferred to the intensive care unit and started on Cardizem drip, still tachycardic at this time and borderline hypotensive. Denied any chest pain or palpitation. Home Medications & Allergies Allergies: Coded Allergies: morphine (Verified Adverse Reaction, Intermediate, CONFUSION, 12/04/14) Home Medication List Reviewed: Yes [id number] Hx Patient Social History Alcohol Use: Occasionally Uses Recreational Drug Use: No Smoking Status: Former Smoker Former smoker/When Quit: May 08, 2014 Type Used: Cigarettes Recent Foreign Travel: No Recent Infectious Disease Expo: No Recent Hopitalizations: Yes Physical Abuse Screen: No Sexual Abuse: No Immunizations Up To Date Tetanus Booster (TDap): Unknown Date of Pneumonia Vaccine: Nov 21, 2015 Date of Influenza Vaccine: Nov 21, 2015 Past Medical History CAD, CHF, HTN, SHAYNA, COPD, HTP Family Medical History Significant Family History: No Pertinent Family Hx Family History: Diabetes mellitus 19 FATHER 19 MOTHER FH: COPD (chronic obstructive pulmonary disease) 19 MOTHER Hypertension 19 FATHER 19 MOTHER Prostate cancer 19 FATHER Constitutional: No chills, No diaphoresis, No fever, No malaise EENTM: No blurred vision, No double vision, No epistaxis, No nose congestion, No nose pain, No vision loss Respiratory: No cough, No dyspnea on exertion Cardiovascular: No chest pain, No edema, No Hx of Intervention, No palpitations Gastrointestinal: abdominal pain nausea vomiting Genitourinary: decreased outputNo discharge, No frequency, No hematuria Musculoskeletal: No back pain Skin: No lesions, No rash Psychiatric/Neurological: Denies Anxiety, Denies Depressed Reviewed Test Results Reviewed Test Results Lab Laboratory Tests 03/31/16 05:00: Alanine Aminotransferase (ALT/SGPT) 11, Albumin 3.5, Alkaline Phosphatase 54, Anion Gap 16H, Aspartate Amino Transf (AST/SGOT) 16, BUN/Creatinine Ratio 24, Band Neutrophils 3, Basophils # (Auto) 0.0, Basophils % (Manual) 0, Basophils (% ) (Auto) 0, Blood Morphology Comment NORMAL, Blood Urea Nitrogen 58H, Calcium Level 8.6, Carbon Dioxide Level 27, Chloride Level 97L, Creatinine 2.46H, Eosinophils # (Auto) 0.1, Eosinophils % (Manual) 0, Eosinophils (%) (Auto) 2, Estimat Glomerular Filtration Rate 27, Glucose Level 78, Hematocrit 38L, Hemoglobin 12.5L, Lymphocytes # (Auto) 1.3, Lymphocytes % (Manual) 16, Lymphocytes (%) (Auto) 17, Magnesium Level 2.2, Mean Corpuscular Hemoglobin 33, Mean Corpuscular Hemoglobin Concent 33, Mean Corpuscular Volume 102H, Mean Platelet Volume 9.2, Monocytes # (Auto) 1.5H, Monocytes % (Manual) 24, Monocytes (%) (Auto) 20H, Neutrophils # (Auto) 4.7, Neutrophils % (Manual) 55, Neutrophils (%) (Auto) 61, Phosphorus Level 4.9H, Platelet Count 328, Potassium Level 3.2L, Reactive Lymphocytes 2, Red Blood Count 3.75L, Red Cell Distribution Width 12.4, Sodium Level 140, Total Bilirubin 0.5, Total Protein 6.2L, White Blood Count 7.7 Microbiology 03/29/16 Urine Culture - Final, Complete ECG Impression ECG Initial ECG Rhythm: A Fib/Flutter Physical Exam Vital Signs Vital Sign - Last 12Hours 03/28/16 03/28/16 03/29/16 12:10 15:30 00:45 Temp 97.1 Pulse 105 Resp 16 B/P 120/76 Pulse Ox 90 O2 Delivery Room Air O2 Flow Rate 3.00 Capillary Refill : General Appearance: WD/WN Moderate Distress HEENT: Normal ENT Inspection Neck: Full Range of Motion Normal Inspection Non Tender Supple Respiratory: Chest Non Tender Lungs Clear Normal Breath Sounds No Accessory Muscle Use No Respiratory Distress Cardiovascular: No Edema No Gallop No JVD Irregularly Irregular Tachycardia Gastrointestinal: No Pulsatile Mass Abnormal Bowel Sounds (diminished bowel sounds) Distended Tenderness Rectal: Deferred Back: No CVA Tenderness Extremity: Non Tender No Calf Tenderness Neurologic/Psychiatric: Alert Oriented x3 analysis manager II-XII Norm as Tested Skin: Normal Color Warm/Dry A/P-Cardiology Admission Diagnosis Afib with RVR CAD HTN SBO Assessment/Plan PAF- currently patient in afib with RVR, HR in the 130's. On Cardizem gtt currently, unable to increase secondary to hypotension. Will add digoxin 0.25mg IV. Start on therapeutic Lovenox. Obtain 2D Echo. Continue to monitor telemetry. If a fib continues to be unstable may consider Amiodarone and DIAN with cardioversion. [id number] score of 5, yearly risk of stroke without OAC is 6.7%. Will start patient on Lovenox. CAD- history of CABG x 1 last year, done at [place]. I will try to obtain copy for our records. Clinically stable, continue to monitor. SBO-NG tube in place. Dr. Stephens and Dr. Sanchez following Acute on chronic renal insufficiency- continue IVF's and continue to monitor. Dehydration- continue IVF's and continue to monitor. HTN- currently hypotensive. Continue cardizem as BP tolerates. SHAYNA- history of bilat CEA in the past by Dr. Spencer. Continue to monitor as outpatient. Hx of CVA COPD HTP- most recent 2D Echo available from 03/07 revealed PA 85mmHg. Re-eval 2D Echo. Tobaccoism Hypokalemia- replace, monitor. Hypomagnesemia- improved. Continue to monitor. Thank you for allowing us to participate in the management of Mr. Petersen. This is Cherie Armstrong PA-C as a scribe for Dr. Juárez. Patient was seen and evaluated with Cherie, interviewed the patient, obtained history and performed physical examination. Patient is tachycardic, had distended abdomen with absent bowel sounds at this point. He is borderline hypotensive. I reviewed the note and agreed with the current scribe, made a few changes and used Italic Font, patient has been seen in [facility] had CABG 1 done over a year ago, had history of atrial fibrillation in the past, not on oral anticoagulation, reported history of TIA and carotid endarterectomy. Currently in atrial fibrillation with rapid ventricular response, will review echocardiogram, unable to tolerate Cardizem drip due to hypotension, I'll bolus him with normal saline and continue with aggressive hydration, monitor blood pressure, start low-dose digoxin with close monitoring to the dig level due to his kidney function. Planning for cardioversion if he continued to be unstable. Clinical Quality Measures DVT/VTE Risk/Contraindication: Risk Factor Score Per Nursin RFS Level Per Nursing on Admit: 4+=Very High CHERIE OCONNELL Mar 31, 2016 13:51 PAYTON JUÁREZ MD Mar 31, 2016 14:15
[2016-03-31] MEDS ORDERED: CHLORASEPTIC SPRAY 177 ML LIQUID MC PRN (14:30)
--- NOTE | 2016-03-31 15:34 | Progress Note (SOAP) ---
Subjective Subjective/Events-last exam development of a fib with RVR and mild hypotension. started on cardizem gtt and therpeutic lovenox. SBFT did show high-grade obstruction at jejenum however symptoms slightly improving with passing flatus and less abd distention. Objective Exam Vital Signs Date Time Temp Pulse Resp B/P Pulse Ox O2 Delivery O2 Flow Rate FiO2 03/31/16 13:21 97.4 03/31/16 13:00 124 03/31/16 12:25 97.4 03/31/16 08:00 Nasal Cannula 3.00 03/31/16 08:00 97.4 Nasal Cannula 3.00 03/31/16 07:00 118 03/31/16 06:45 123 10 103/63 97 Nasal Cannula 3.00 03/31/16 06:30 126 24 88/66 96 Nasal Cannula 3.00 03/31/16 06:15 117 24 88/70 96 Nasal Cannula 3.00 03/31/16 06:00 125 21 81/53 87 Nasal Cannula 3.00 03/31/16 05:45 146 25 83/65 88 Nasal Cannula 3.00 03/31/16 05:30 174 26 77 Nasal Cannula 3.00 03/31/16 05:15 140 19 100/73 88 Nasal Cannula 3.00 03/31/16 05:00 128 24 91/86 90 Nasal Cannula 3.00 03/31/16 04:45 140 33 117/87 97 Nasal Cannula 3.00 03/31/16 04:30 126 35 122/53 95 Nasal Cannula 3.00 03/31/16 04:15 116 20 105/62 98 Nasal Cannula 3.00 03/31/16 04:00 131 22 75/60 96 Nasal Cannula 3.00 03/31/16 03:45 131 23 91/60 96 Nasal Cannula 3.00 03/31/16 03:30 128 22 103/62 97 Nasal Cannula 3.00 03/31/16 03:15 126 23 84/62 97 Nasal Cannula 3.00 03/31/16 03:00 128 21 83/65 97 Nasal Cannula 3.00 03/31/16 02:45 128 23 78/69 97 Nasal Cannula 3.00 03/31/16 02:30 134 25 95/60 97 Nasal Cannula 3.00 03/31/16 02:15 120 19 81/61 98 Nasal Cannula 3.00 03/31/16 02:00 122 25 89/71 97 Nasal Cannula 3.00 03/31/16 01:45 137 25 90/72 97 Nasal Cannula 3.00 03/31/16 01:30 129 23 78/63 97 Nasal Cannula 3.00 03/31/16 01:15 135 25 83/57 97 Nasal Cannula 3.00 03/31/16 01:00 140 03/31/16 01:00 140 23 84/42 97 Nasal Cannula 3.00 03/31/16 00:45 134 23 86/56 96 Nasal Cannula 3.00 03/31/16 00:30 142 28 105/61 88 Nasal Cannula 3.00 03/31/16 00:26 142 03/31/16 00:25 151 03/31/16 00:15 147 23 90/72 87 Nasal Cannula 3.00 03/31/16 00:11 140 12 108/84 89 Nasal Cannula 3.00 03/31/16 00:00 97.6 Nasal Cannula 3.00 03/31/16 00:00 Nasal Cannula 3.00 03/30/16 19:50 Room Air 03/30/16 19:35 97.8 114 22 136/84 94 OxyMask 3.00 03/30/16 19:00 114 03/30/16 16:00 97.5 110 22 145/93 92 Nasal Cannula 3.00 I & O 03/31/16 07:00 Intake Total 3100 ml Output Total 5150 ml Balance -2050 ml Capillary Refill : General Appearance: No Apparent Distress HEENT: PERRL/EOMI Neck: Full Range of Motion Respiratory: Chest Non Tender Lungs Clear Cardiovascular: Regular Rate, Rhythm Gastrointestinal: soft distended Extremity: Normal Capillary Refill Neurologic/Psychiatric: Alert Oriented x3 Skin: Normal Color Lymphatic: No Adenopathy Results Lab Laboratory Tests 03/31/16 05:00: Alanine Aminotransferase (ALT/SGPT) 11, Albumin 3.5, Alkaline Phosphatase 54, Anion Gap 16H, Aspartate Amino Transf (AST/SGOT) 16, BUN/Creatinine Ratio 24, Band Neutrophils 3, Basophils # (Auto) 0.0, Basophils % (Manual) 0, Basophils (% ) (Auto) 0, Blood Morphology Comment NORMAL, Blood Urea Nitrogen 58H, Calcium Level 8.6, Carbon Dioxide Level 27, Chloride Level 97L, Creatinine 2.46H, Eosinophils # (Auto) 0.1, Eosinophils % (Manual) 0, Eosinophils (%) (Auto) 2, Estimat Glomerular Filtration Rate 27, Glucose Level 78, Hematocrit 38L, Hemoglobin 12.5L, Lymphocytes # (Auto) 1.3, Lymphocytes % (Manual) 16, Lymphocytes (%) (Auto) 17, Magnesium Level 2.2, Mean Corpuscular Hemoglobin 33, Mean Corpuscular Hemoglobin Concent 33, Mean Corpuscular Volume 102H, Mean Platelet Volume 9.2, Monocytes # (Auto) 1.5H, Monocytes % (Manual) 24, Monocytes (%) (Auto) 20H, Neutrophils # (Auto) 4.7, Neutrophils % (Manual) 55, Neutrophils (%) (Auto) 61, Phosphorus Level 4.9H, Platelet Count 328, Potassium Level 3.2L, Reactive Lymphocytes 2, Red Blood Count 3.75L, Red Cell Distribution Width 12.4, Sodium Level 140, Total Bilirubin 0.5, Total Protein 6.2L, White Blood Count 7.7 Microbiology 03/29/16 Urine Culture - Final, Complete Assessment/Plan Assessment/Plan Assess & Plan/Chief Complaint PSBO and bilateral inguinal hernia. PSBO likely upper 1/3 small bowel from adhesions. renal function improving. will continue conservative management with NGT, IV fluids and bowel rest. has developed a-fib with RVR and now on cardizem gtt and therapeutic lovenox. will get another PICC in am(04/01) and start TPN Diagnosis/Problems: Clinical Quality Measures DVT/VTE Risk/Contraindication: Risk Factor Score Per Nursin RFS Level Per Nursing on Admit: 4+=Very High BRITTANY CHAPA MD Mar 31, 2016 3:34 pm
[2016-03-31] MEDS ORDERED: RT-ALBUTEROL/IPRATROPIUM 3 ML (DUONEB) VIAL INH PRN (16:00)
[2016-03-31] MEDS: ENOXAPARIN 80 MG/0.8 ML (LOVENOX) SYR SC SCH (17:08)
[2016-03-31] MEDS: RT-ALBUTEROL/IPRATROPIUM 3 ML (DUONEB) VIAL INH SCH ×2 (18:26→22:05)
--- NOTE | 2016-03-31 19:07 | Progress Note (SOAP) ---
Subjective Subjective/Events-last exam Fwup small bowel obstruction, acute renal failure, dehydration, COPD. Went into A. Fib with RVR last night and had to be transferred to ICU and placed on cardizem drip and given lovenox. Heart rate still in 120s to 130s but unable to titrate drip due to blood pressure. Was also given IV lopressor. Had small bowel follow through yesterday but has not passed any barium through. Objective Exam Vital Signs Date Time Temp Pulse Resp B/P Pulse Ox O2 Delivery O2 Flow Rate FiO2 03/31/16 18:26 95 3.00 03/31/16 18:03 97.4 03/31/16 17:33 97.4 03/31/16 16:04 93 03/31/16 16:04 1.50 03/31/16 16:00 Nasal Cannula 3.00 03/31/16 16:00 158 11 138/84 Nasal Cannula 3.00 03/31/16 15:00 117 51 82/41 95 Nasal Cannula 3.00 03/31/16 14:00 116 26 102/74 97 Nasal Cannula 3.00 03/31/16 13:21 97.4 03/31/16 13:00 145 101/71 92 Nasal Cannula 3.00 03/31/16 13:00 124 03/31/16 12:25 97.4 03/31/16 12:00 Nasal Cannula 3.00 03/31/16 12:00 121 32 71/55 97 Nasal Cannula 3.00 03/31/16 11:00 129 28 84/69 94 Nasal Cannula 3.00 03/31/16 10:00 108 22 72/55 94 Nasal Cannula 3.00 03/31/16 09:00 103 14 77/58 Nasal Cannula 3.00 03/31/16 08:00 Nasal Cannula 3.00 03/31/16 08:00 97.4 Nasal Cannula 3.00 03/31/16 07:00 124 17 96/77 98 Nasal Cannula 3.00 03/31/16 07:00 118 03/31/16 06:45 123 10 103/63 97 Nasal Cannula 3.00 03/31/16 06:30 126 24 88/66 96 Nasal Cannula 3.00 03/31/16 06:15 117 24 88/70 96 Nasal Cannula 3.00 03/31/16 06:00 125 21 81/53 87 Nasal Cannula 3.00 03/31/16 05:45 146 25 83/65 88 Nasal Cannula 3.00 03/31/16 05:30 174 26 77 Nasal Cannula 3.00 03/31/16 05:15 140 19 100/73 88 Nasal Cannula 3.00 03/31/16 05:00 128 24 91/86 90 Nasal Cannula 3.00 03/31/16 04:45 140 33 117/87 97 Nasal Cannula 3.00 03/31/16 04:30 126 35 122/53 95 Nasal Cannula 3.00 03/31/16 04:15 116 20 105/62 98 Nasal Cannula 3.00 03/31/16 04:00 131 22 75/60 96 Nasal Cannula 3.00 03/31/16 03:45 131 23 91/60 96 Nasal Cannula 3.00 03/31/16 03:30 128 22 103/62 97 Nasal Cannula 3.00 03/31/16 03:15 126 23 84/62 97 Nasal Cannula 3.00 03/31/16 03:00 128 21 83/65 97 Nasal Cannula 3.00 03/31/16 02:45 128 23 78/69 97 Nasal Cannula 3.00 03/31/16 02:30 134 25 95/60 97 Nasal Cannula 3.00 03/31/16 02:15 120 19 81/61 98 Nasal Cannula 3.00 03/31/16 02:00 122 25 89/71 97 Nasal Cannula 3.00 03/31/16 01:45 137 25 90/72 97 Nasal Cannula 3.00 03/31/16 01:30 129 23 78/63 97 Nasal Cannula 3.00 03/31/16 01:15 135 25 83/57 97 Nasal Cannula 3.00 03/31/16 01:00 140 03/31/16 01:00 140 23 84/42 97 Nasal Cannula 3.00 03/31/16 00:45 134 23 86/56 96 Nasal Cannula 3.00 03/31/16 00:30 142 28 105/61 88 Nasal Cannula 3.00 03/31/16 00:26 142 03/31/16 00:25 151 03/31/16 00:15 147 23 90/72 87 Nasal Cannula 3.00 03/31/16 00:11 140 12 108/84 89 Nasal Cannula 3.00 03/31/16 00:00 97.6 Nasal Cannula 3.00 03/31/16 00:00 Nasal Cannula 3.00 03/30/16 19:50 Room Air 03/30/16 19:35 97.8 114 22 136/84 94 OxyMask 3.00 I & O 03/31/16 07:00 Intake Total 3100 ml Output Total 5150 ml Balance -2050 ml Capillary Refill : General Appearance: No Apparent Distress HEENT: Other (NG tube in place) Neck: Supple Respiratory: Lungs Clear Cardiovascular: Systolic Murmur Gallop/S3 Irregularly Irregular Gastrointestinal: non tender soft abnormal bowel sounds (hypoacitve) Extremity: Non Tender No Calf Tenderness No Pedal Edema Neurologic/Psychiatric: Alert Oriented x3 Results Lab Laboratory Tests 03/31/16 05:00: Alanine Aminotransferase (ALT/SGPT) 11, Albumin 3.5, Alkaline Phosphatase 54, Anion Gap 16H, Aspartate Amino Transf (AST/SGOT) 16, BUN/Creatinine Ratio 24, Band Neutrophils 3, Basophils # (Auto) 0.0, Basophils % (Manual) 0, Basophils (% ) (Auto) 0, Blood Morphology Comment NORMAL, Blood Urea Nitrogen 58H, Calcium Level 8.6, Carbon Dioxide Level 27, Chloride Level 97L, Creatinine 2.46H, Eosinophils # (Auto) 0.1, Eosinophils % (Manual) 0, Eosinophils (%) (Auto) 2, Estimat Glomerular Filtration Rate 27, Glucose Level 78, Hematocrit 38L, Hemoglobin 12.5L, Lymphocytes # (Auto) 1.3, Lymphocytes % (Manual) 16, Lymphocytes (%) (Auto) 17, Magnesium Level 2.2, Mean Corpuscular Hemoglobin 33, Mean Corpuscular Hemoglobin Concent 33, Mean Corpuscular Volume 102H, Mean Platelet Volume 9.2, Monocytes # (Auto) 1.5H, Monocytes % (Manual) 24, Monocytes (%) (Auto) 20H, Neutrophils # (Auto) 4.7, Neutrophils % (Manual) 55, Neutrophils (%) (Auto) 61, Phosphorus Level 4.9H, Platelet Count 328, Potassium Level 3.2L, Reactive Lymphocytes 2, Red Blood Count 3.75L, Red Cell Distribution Width 12.4, Sodium Level 140, Total Bilirubin 0.5, Total Protein 6.2L, White Blood Count 7.7 Microbiology 03/29/16 Urine Culture - Final, Complete Assessment/Plan Assessment/Plan Assess & Plan/Chief Complaint 1. Small Bowel Obstruction--continue NG tube and pain control, discussed with Dr. Stephens since did not pass barium through with small bowel follow through--he states will likely need surgery but need to get atrial fib under control first 2. Acute Renal Failure/Dehydration--continue IVF and monitor Cr--Cr improving daily 3. COPD--stable 4. Hypomagnesemia--stable, will monitor 5. Atrial Fibrillation with RVR--on cardizem drip, cover with lovenox since will likely need surgery, check 2-D ECHO and consult cardiology Diagnosis/Problems: Clinical Quality Measures DVT/VTE Risk/Contraindication: Risk Factor Score Per Nursin RFS Level Per Nursing on Admit: 4+=Very High AIME CANO DO Mar 31, 2016 19:07
[2016-03-31] MEDS ORDERED: meTOprolol 5 MG/5 ML (LOPRESSOR) VIAL IV SCH (20:50)
[2016-03-31] MEDS: BISACODYL 10 MG SUPP (DULCOLAX) PR SCH (20:52)
[2016-04-01] VITALS (16 sets, daily range): BP systolic 92–166; BP diastolic 56–95
[2016-04-01] MEDS: meTOprolol 5 MG/5 ML (LOPRESSOR) VIAL IV SCH ×6 (00:02→23:58)
[2016-04-01] MEDS: DILTIAZEM DRIP 100 MG in SODIUM CHLORIDE (ADD-VANTAGE) 100 ML IV SCH ×2 (00:12→16:15)
[2016-04-01] MEDS: NS IV 1000 ML 1,000 ML IV SCH ×3 (00:15→14:30)
[2016-04-01] MEDS: fentaNYL INJECTION 100 MCG/2 ML AMP IV PRN ×3 (00:15→20:19)
[2016-04-01] MEDS: RT-ALBUTEROL/IPRATROPIUM 3 ML (DUONEB) VIAL INH SCH ×4 (02:04→20:19)
[2016-04-01] MEDS: ENOXAPARIN 80 MG/0.8 ML (LOVENOX) SYR SC SCH ×2 (05:06→19:39)
--- NOTE | 2016-04-01 05:20 | Progress Note (SOAP) ---
Subjective Subjective/Events-last exam Fwup small bowel obstruction, acute renal failure, dehydration, COPD, Atrial fibrillation with RVR. Converted back to NSR overnight. Passed a small BM this AM. Objective Exam Vital Signs Date Time Temp Pulse Resp B/P Pulse Ox O2 Delivery O2 Flow Rate FiO2 04/01/16 04:00 93 20 102/57 96 Nasal Cannula 3.00 04/01/16 04:00 Nasal Cannula 3.00 04/01/16 04:00 98.0 04/01/16 03:00 95 24 104/56 97 Nasal Cannula 3.00 04/01/16 02:04 98 3.00 04/01/16 02:00 84 20 107/61 99 Nasal Cannula 3.00 04/01/16 01:00 89 22 92/59 96 Nasal Cannula 3.00 04/01/16 01:00 89 04/01/16 00:12 90 04/01/16 00:00 99.0 04/01/16 00:00 Nasal Cannula 3.00 04/01/16 00:00 96 24 129/74 98 Nasal Cannula 3.00 03/31/16 23:00 114 27 85/53 97 Nasal Cannula 3.00 03/31/16 22:05 94 3.00 03/31/16 22:00 98 18 94/53 96 Nasal Cannula 3.00 03/31/16 21:00 113 14 97/67 96 Nasal Cannula 3.00 03/31/16 20:00 115 11 97/62 96 Nasal Cannula 3.00 03/31/16 20:00 Nasal Cannula 3.00 03/31/16 19:00 129 23 116/78 96 Nasal Cannula 3.00 03/31/16 19:00 129 03/31/16 18:26 95 3.00 03/31/16 18:03 97.4 03/31/16 17:33 97.4 03/31/16 16:04 93 03/31/16 16:04 1.50 03/31/16 16:00 Nasal Cannula 3.00 03/31/16 16:00 158 11 138/84 Nasal Cannula 3.00 03/31/16 15:00 117 51 82/41 95 Nasal Cannula 3.00 03/31/16 14:00 116 26 102/74 97 Nasal Cannula 3.00 03/31/16 13:21 97.4 03/31/16 13:00 145 101/71 92 Nasal Cannula 3.00 03/31/16 13:00 124 03/31/16 12:25 97.4 03/31/16 12:00 Nasal Cannula 3.00 03/31/16 12:00 121 32 71/55 97 Nasal Cannula 3.00 03/31/16 11:00 129 28 84/69 94 Nasal Cannula 3.00 03/31/16 10:00 108 22 72/55 94 Nasal Cannula 3.00 03/31/16 09:00 103 14 77/58 Nasal Cannula 3.00 03/31/16 08:00 Nasal Cannula 3.00 03/31/16 08:00 97.4 Nasal Cannula 3.00 03/31/16 07:00 124 17 96/77 98 Nasal Cannula 3.00 03/31/16 07:00 118 03/31/16 06:45 123 10 103/63 97 Nasal Cannula 3.00 03/31/16 06:30 126 24 88/66 96 Nasal Cannula 3.00 03/31/16 06:15 117 24 88/70 96 Nasal Cannula 3.00 03/31/16 06:00 125 21 81/53 87 Nasal Cannula 3.00 03/31/16 05:45 146 25 83/65 88 Nasal Cannula 3.00 03/31/16 05:30 174 26 77 Nasal Cannula 3.00 I & O 04/01/16 07:00 Intake Total 3900 ml Output Total 1400 ml Balance 2500 ml Capillary Refill : General Appearance: No Apparent Distress HEENT: Other (NG tube in place) Neck: Supple Respiratory: Chest Non Tender Cardiovascular: Regular Rate, Rhythm Systolic Murmur Gallop/S3 Gastrointestinal: non tender soft abnormal bowel sounds (hypoactive) Extremity: Non Tender No Calf Tenderness No Pedal Edema Neurologic/Psychiatric: Alert Oriented x3 Results Lab Microbiology 03/29/16 Urine Culture - Final, Complete Assessment/Plan Assessment/Plan Assess & Plan/Chief Complaint 1. Small Bowel Obstruction--continue NG tube and pain control, small BM this AM 2. Acute Renal Failure/Dehydration--continue IVF and monitor Cr--Cr improving daily 3. COPD--stable 4. Hypomagnesemia--stable, will monitor 5. Atrial Fibrillation with RVR--back in NSR, still on cardizem drip so will await cardiology recommendations since is still NPO Diagnosis/Problems: Clinical Quality Measures DVT/VTE Risk/Contraindication: Risk Factor Score Per Nursin RFS Level Per Nursing on Admit: 4+=Very High AIME CANO DO Apr 01, 2016 5:20 am
[2016-04-01 05:26] LABS: BASOPHILS % (AUTO) 0 % (0-10); EOSINOPHILS # (AUTO) 0.1 10^3/uL (0.0-0.3); EOSINOPHILS % (AUTO) 1 % (0-10); LYMPHOCYTES # (AUTO) 1.1 X 10^3 (1.0-4.0); LYMPHOCYTES % (AUTO) 15 % (12-44); MEAN CORPUSCULAR HEMOGLOBIN 33 PG (25-34); MEAN CORPUSCULAR HGB CONC 33 G/DL (32-36); MEAN CORPUSCULAR VOLUME 102 FL (80-99); MEAN PLATELET VOLUME 9.7 FL (7.4-10.4); MONOCYTES # (AUTO) 1.2 X 10^3 (0.0-1.0); MONOCYTES % (AUTO) 16 % (0-12); NEUTROPHILS # (AUTO) 5.1 X 10^3 (1.8-7.8); NEUTROPHILS % (AUTO) 68 % (42-75); PLATELET COUNT 322 10^3/uL (130-400); RED BLOOD COUNT 3.64 10^6/uL (4.35-5.85); RED CELL DISTRIBUTION WIDTH 12.2 % (10.0-14.5); WHITE BLOOD COUNT 7.4 10^3/uL (4.3-11.0)
[2016-04-01 05:38] LABS: INR 1.1 (0.8-1.4); PROTHROMBIN TIME PATIENT 13.7 SEC (12.2-14.7)
[2016-04-01 05:49] LABS: ALBUMIN 3.2 G/DL (3.2-4.5); BILIRUBIN,TOTAL 0.3 MG/DL (0.1-1.0); CALCIUM 8.4 MG/DL (8.5-10.1); CREATININE SERUM 1.91 MG/DL (0.60-1.30); MAGNESIUM 1.7 MG/DL (1.8-2.4); PHOSPHORUS 3.7 MG/DL (2.3-4.7); POTASSIUM 3.5 MMOL/L (3.6-5.0); TOTAL PROTEIN 5.9 G/DL (6.4-8.2)
[2016-04-01] MEDS: POTASSIUM CL 10MEQ/50ML IVPB 50 ML IV SCH ×3 (06:00→07:40)
[2016-04-01] MEDS: KCL 20 MEQ TAB (K-DUR) PO SCH (06:00)
[2016-04-01] MEDS: MAGNESIUM 1 GM/100 ML IVPB 100 ML IV SCH ×3 (06:00→07:40)
--- NOTE | 2016-04-01 08:01 | Diagnostic Imaging Report ---
INDICATION:?Arrhythmia. Portable chest 4:50 AM. There is an NG tube projecting over the stomach. There are postop changes from a median sternotomy. Heart size and pulmonary vascularity are normal. Lungs are clear. IMPRESSION: Unremarkable postoperative chest. There is gaseous distention of small bowel suspicious for obstruction. Dictated by: Dictated on workstation # [id number]
[2016-04-01] MEDS: BISACODYL 10 MG SUPP (DULCOLAX) PR SCH ×2 (09:00→20:19)
[2016-04-01] MEDS ORDERED: TPN IV SCH (09:00)
[2016-04-01] MEDS: NICOTINE PATCH REMOVAL TP SCH (09:35)
[2016-04-01] MEDS: PANTOPRAZOLE 40 MG/10 ML (PROTONIX) VIAL IV SCH ×2 (09:35→20:19)
[2016-04-01] MEDS: NICOTINE 21 MG (NICODERM) PATCH TD SCH (09:35)
--- NOTE | 2016-04-01 10:15 | ECHOCARDIOGRAPHY REPORT ---
PROCEDURE PHYSICIAN: PAYTON BUTCHER DATE OF PROCEDURE: 03/31/2016 TWO DIMENSIONAL ECHOCARDIOGRAM REPORT PRIMARY PHYSICIAN: OTHER PHYSICIAN: REFERRING PHYSICIAN: Dr. Sanchez ORDERING PHYSICIAN: INDICATION FOR THE PROCEDURE: Atrial fibrillation MEASUREMENTS DERIVED VALUES LV DIAMETER (LAX) NORMALS NORMALS Diastolic 4. (3.6-5.2) Eject. Fract. 60% (60%+/-6%) Systolic (2.3-3.9) Diastolic Vol. % Shortening (0.22-0.42) Systolic Vol. Aortic Root IVS THICKNESS Diastolic 0.8 (0.6-1.1) LVPW THICKNESS Diastolic 0.8 (0.6-1.1) LA DIAMETER Systolic 3.8 (2.1-3.7) FINDINGS: 1. Technically difficult study. 2. The left ventricle is normal in size, tachycardia. Systolic function is normal. Estimated ejection fraction 60%. 3. The left atrium is normal in size. Echogenic density was noted. In some subcostal views in the left atrium which could be representing a thrombus or interatrial mass. 4. The right atrium and right ventricle are normal in size. No clot or thrombus were seen within the right side. 5. Mitral valve is calcified with mild mitral regurgitation. No mitral valve prolapse. No mitral valve stenosis. 6. Aortic valve leaflets were not well visualized. There is no significant aortic valve stenosis or regurgitation was seen. 7. Tricuspid valve is normal in morphology with mild tricuspid regurgitation. Doppler across tricuspid valve estimated pulmonary artery pressure of 51+ right atrial pressure. 8. Pulmonic valve was not visualized. 9. No pericardial effusion. CONCLUSION: 1. Echogenic density was noted in the left atrium which could be representing a thrombus or a mass. DIAN is recommended once the patient is more clinically stable. 2. Normal left ventricular size and systolic function. Estimated ejection fraction 60%. 3. Mild mitral and tricuspid regurgitation. Job ID: [id number] Dictated Date: 03/31/2016 18:56:58 Curing Machine Operator Date: 04/01/2016 10:10:28 / moises
--- NOTE | 2016-04-01 10:18 | Cardiology Progress Note ---
Subjective Subjective/Events-last exam Patient is in bed, feeling better, no new complaint, converted back to sinus rhythm last night. Had a bowel movement, feeling better. Review of Systems General: No Chills, No Night Sweats, No Fatigue, No Malaise, No Appetite, No Other HEENT: No Head Aches, No Visual Changes, No Eye Pain, No Ear Pain, No Dysphasia , No Sinus Congestion, No Post Nasal Drip, No Sore Throat, No Other Pulmonary: No Dyspnea, No Cough, No Pleuritic Chest Pain, No Other Cardiovascular: No: Chest Pain, Edema, Lt Headedness, Orthopnea, Other, Palpitations, Paroxysmal Noc. Dyspnea Objective-Cardiology Exam Last Set of Vital Signs Vital Signs 04/01/16 04/01/16 04/01/16 04/01/16 04:00 06:00 06:50 07:00 Temp 98.0 Pulse 120 Resp 12 B/P 133/80 Pulse Ox 97 O2 Delivery Nasal Cannula O2 Flow Rate 3.00 Capillary Refill : I&O Intake and Output 04/01/16 00:00 Intake Total 3900 ml Output Total 2200 ml Balance 1700 ml Intake Oral 700 ml IV Total 3200 ml Output Urine Total 1000 ml Gastric Drainage Total 1200 ml General: Alert, Oriented X3, Cooperative HEENT: Atraumatic, PERRLA Neck: Supple, No JVD, No Thyromegaly Lungs: Clear to Auscultation, Normal Air Movement Heart: Regular Rate, Normal S1, Normal S2, No Murmurs Abdomen: Soft, No Masses, Other Extremities: No Clubbing, No Cyanosis, No Edema, Normal Pulses, No Tenderness/ Swelling Skin: No Rashes, No Breakdown, No Significant Lesion Neuro: Normal Gait, Normal Speech, Strength at 5/5 X4 Ext, Normal Tone, Sensation Intact Psych/Mental Status: Mental Status NL, Mood NL Results Lab Laboratory Tests 04/01/16 04:55 A/P-Cardiology Admission Diagnosis Afib with RVR CAD HTN SBO Assessment/Plan Paroxysmal atrial fibrillation, status post Cardizem drip, converted last night to sinus rhythm, has been on digoxin and Cardizem, continue to monitor closely. I will start IV Lopressor and monitor his I's and response, stopped Cardizem drip for now. [id number] score of 5, yearly risk of stroke without OAC is 6.7%. continue on Lovenox, patient will need to be on NOAC prior to discharge Echocardiogram was of poor quality, there is questionable echogenic density in the left atrium, recommend DIAN, discussed it with the patient, he prefer to have it done as an outpatient with his primary lens polisher Dr. Galaviz CAD- history of CABG x 1 last year, done at [facility]. I will try to obtain copy for our records. Clinically stable, continue to monitor. Small bowel obstruction, had a bowel movement yesterday, NG tube is out, starting on diet. Followed and managed by Dr. Stephens Acute on chronic renal insufficiency, improving, continue to monitor renal function Dehydration- continue IVF's and continue to monitor. hypertension, currently borderline hypotensive, continue to monitor blood pressure, starting IV beta blockers. SHAYNA- history of bilat CEA in the past by Dr. Spencer. Continue to monitor as outpatient. Hx of CVA COPD HTP- most recent 2D Echo available from 03/07 revealed PA 85mmHg. Re-eval 2D Echo. Tobaccoism Hypokalemia, hypomagnesemia, being replaced, continue to monitor electrolytes closely. Clinical Quality Measures DVT/VTE Risk/Contraindication: Risk Factor Score Per Nursin RFS Level Per Nursing on Admit: 4+=Very High PAYTON BUTCHER MD Apr 01, 2016 10:18
--- NOTE | 2016-04-01 10:27 | Progress Note (SOAP) ---
Subjective Subjective/Events-last exam doing better today. had BM this am and less abd distention. no nausea/vomiting. Objective Exam Vital Signs Date Time Temp Pulse Resp B/P Pulse Ox O2 Delivery O2 Flow Rate FiO2 04/01/16 07:00 120 04/01/16 06:50 97 3.00 04/01/16 06:00 99 12 133/80 95 Nasal Cannula 3.00 04/01/16 05:00 115 21 142/77 85 Nasal Cannula 3.00 04/01/16 04:00 93 20 102/57 96 Nasal Cannula 3.00 04/01/16 04:00 Nasal Cannula 3.00 04/01/16 04:00 98.0 04/01/16 03:00 95 24 104/56 97 Nasal Cannula 3.00 04/01/16 02:04 98 3.00 04/01/16 02:00 84 20 107/61 99 Nasal Cannula 3.00 04/01/16 01:00 89 22 92/59 96 Nasal Cannula 3.00 04/01/16 01:00 89 04/01/16 00:12 90 04/01/16 00:00 99.0 04/01/16 00:00 Nasal Cannula 3.00 04/01/16 00:00 96 24 129/74 98 Nasal Cannula 3.00 03/31/16 23:00 114 27 85/53 97 Nasal Cannula 3.00 03/31/16 22:05 94 3.00 03/31/16 22:00 98 18 94/53 96 Nasal Cannula 3.00 03/31/16 21:00 113 14 97/67 96 Nasal Cannula 3.00 03/31/16 20:00 115 11 97/62 96 Nasal Cannula 3.00 03/31/16 20:00 Nasal Cannula 3.00 03/31/16 19:00 129 23 116/78 96 Nasal Cannula 3.00 03/31/16 19:00 129 03/31/16 18:26 95 3.00 03/31/16 18:03 97.4 03/31/16 17:33 97.4 03/31/16 16:04 93 03/31/16 16:04 1.50 03/31/16 16:00 Nasal Cannula 3.00 03/31/16 16:00 158 11 138/84 Nasal Cannula 3.00 03/31/16 15:00 117 51 82/41 95 Nasal Cannula 3.00 03/31/16 14:00 116 26 102/74 97 Nasal Cannula 3.00 03/31/16 13:21 97.4 03/31/16 13:00 145 101/71 92 Nasal Cannula 3.00 03/31/16 13:00 124 03/31/16 12:25 97.4 03/31/16 12:00 Nasal Cannula 3.00 03/31/16 12:00 121 32 71/55 97 Nasal Cannula 3.00 03/31/16 11:00 129 28 84/69 94 Nasal Cannula 3.00 I & O 04/01/16 07:00 Intake Total 3900 ml Output Total 3150 ml Balance 750 ml Capillary Refill : General Appearance: No Apparent Distress HEENT: PERRL/EOMI Neck: Full Range of Motion Respiratory: Chest Non Tender Lungs Clear Normal Breath Sounds Cardiovascular: Tachycardia Gastrointestinal: normal bowel sounds non tender soft Extremity: Normal Capillary Refill Neurologic/Psychiatric: Alert Oriented x3 Skin: Normal Color Lymphatic: No Adenopathy Results Lab Laboratory Tests 04/01/16 04:55: Alanine Aminotransferase (ALT/SGPT) 7, Albumin 3.2, Alkaline Phosphatase 52, Anion Gap 18H, Aspartate Amino Transf (AST/SGOT) 15, BUN/Creatinine Ratio 25, Basophils # (Auto) 0.0, Basophils (%) (Auto) 0, Blood Urea Nitrogen 48H, Calcium Level 8.4L, Carbon Dioxide Level 21, Chloride Level 101, Creatinine 1.91H, Eosinophils # (Auto) 0.1, Eosinophils (%) (Auto) 1, Estimat Glomerular Filtration Rate 36, Glucose Level 67L, Hematocrit 37L, Hemoglobin 12.1L, INR Comment 1.1, Lymphocytes # (Auto) 1.1, Lymphocytes (%) (Auto) 15, Magnesium Level 1.7L, Mean Corpuscular Hemoglobin 33, Mean Corpuscular Hemoglobin Concent 33, Mean Corpuscular Volume 102H, Mean Platelet Volume 9.7, Monocytes # (Auto) 1.2H, Monocytes (%) (Auto) 16H, Neutrophils # (Auto) 5.1, Neutrophils (%) (Auto ) 68, Phosphorus Level 3.7, Platelet Count 322, Potassium Level 3.5L, Prothrombin Time 13.7, Red Blood Count 3.64L, Red Cell Distribution Width 12.2, Sodium Level 140, Total Bilirubin 0.3, Total Protein 5.9L, Triglycerides Level 101, White Blood Count 7.4 04/01/16 05:45: Prealbumin 11.7L Microbiology 03/29/16 Urine Culture - Final, Complete Assessment/Plan Assessment/Plan Assess & Plan/Chief Complaint PSBO and bilateral inguinal hernia. PSBO likely upper 1/3 small bowel from adhesions. renal function improving. will continue conservative management with NGT, IV fluids and bowel rest. has developed a-fib with RVR and now on cardizem gtt and therapeutic lovenox. will get midline vs. PICC and start TPN due to malnutrition and uncertainty of PO alimentation at this time. will continue clears for now until increased bowel fxn. renal function improving. Diagnosis/Problems: Clinical Quality Measures DVT/VTE Risk/Contraindication: Risk Factor Score Per Nursin RFS Level Per Nursing on Admit: 4+=Very High BRITTANY CHAPA MD Apr 01, 2016 10:27 am
[2016-04-01] MEDS ORDERED: POTASSIUM CL 10MEQ/50ML IVPB 50 ML IV SCH (10:30)
[2016-04-01] MEDS ORDERED: MAGNESIUM 1 GM/100 ML IVPB 100 ML IV ONE (10:30)
[2016-04-01] MEDS: HYDROcodone/APAP 7.5 MG/325 MG (LORTAB, LORCET PLUS) TABLET PO PRN (14:31)
--- NOTE | 2016-04-01 15:27 | Diagnostic Imaging Report ---
INDICATION: Bowel obstruction. EXAMINATION: Supine abdomen at 3:25 p.m. FINDINGS: The small bowel exam performed on 03/31/16 indicated a high-grade obstruction of the small bowel. On this study, there are still numerous dilated gas-filled segments of small bowel present. This appearance does suggest a bowel obstruction. The NG line noted the prior study, has been removed. There is no mass or organomegaly appreciated. The sternotomy wires, surgical clips and the orthopedic hardware securing the fusion of L3, L4 and L5, seen previously, is again evident and no different. IMPRESSION: 1. There are numerous dilated gas-filled segments of small bowel present. This appearance does suggest a small bowel obstruction. 2. The NG line, noted previously, has been removed. 3. These results were called to Dr. Stephens. CRITICAL FINDINGS Dictated by: Dictated on workstation # [id number]
[2016-04-01] MEDS: ONDANSETRON 4 MG/2 ML (SDV) Z0FRAN IVP PRN (15:51)
[2016-04-01] MEDS: LORazepam INJ 2 MG/ML (ATIVAN) VIAL IVP PRN (15:59)
[2016-04-01] MEDS ORDERED: SODIUM ACETATE IV SCH ×11 (17:00)
[2016-04-01] MEDS ORDERED: [UNRECOGNIZED DRUG - OTHER] IV SCH ×11 (17:00)
[2016-04-01] MEDS ORDERED: SODIUM CHLORIDE IV SCH ×11 (17:00)
[2016-04-02] VITALS (14 sets, daily range): BP systolic 113–149; BP diastolic 66–92
[2016-04-02] MEDS: LORazepam INJ 2 MG/ML (ATIVAN) VIAL IVP PRN ×3 (01:16→21:45)
[2016-04-02] MEDS: RT-ALBUTEROL/IPRATROPIUM 3 ML (DUONEB) VIAL INH SCH ×4 (02:30→20:34)
[2016-04-02] MEDS: NS IV 1000 ML 1,000 ML IV SCH ×2 (04:10→17:51)
[2016-04-02 04:54] LABS: BASOPHILS % (AUTO) 0 % (0-10); EOSINOPHILS # (AUTO) 0.2 10^3/uL (0.0-0.3); EOSINOPHILS % (AUTO) 3 % (0-10); LYMPHOCYTES # (AUTO) 0.9 X 10^3 (1.0-4.0); LYMPHOCYTES % (AUTO) 14 % (12-44); MEAN CORPUSCULAR HEMOGLOBIN 33 PG (25-34); MEAN CORPUSCULAR HGB CONC 33 G/DL (32-36); MEAN CORPUSCULAR VOLUME 101 FL (80-99); MEAN PLATELET VOLUME 9.8 FL (7.4-10.4); MONOCYTES # (AUTO) 0.9 X 10^3 (0.0-1.0); MONOCYTES % (AUTO) 14 % (0-12); NEUTROPHILS # (AUTO) 4.4 X 10^3 (1.8-7.8); NEUTROPHILS % (AUTO) 69 % (42-75); PLATELET COUNT 303 10^3/uL (130-400); RED BLOOD COUNT 3.51 10^6/uL (4.35-5.85); RED CELL DISTRIBUTION WIDTH 11.9 % (10.0-14.5); WHITE BLOOD COUNT 6.4 10^3/uL (4.3-11.0)
[2016-04-02 05:15] LABS: ALBUMIN 3.1 G/DL (3.2-4.5); BILIRUBIN,TOTAL 0.3 MG/DL (0.1-1.0); CALCIUM 8.6 MG/DL (8.5-10.1); CREATININE SERUM 1.48 MG/DL (0.60-1.30); MAGNESIUM 1.9 MG/DL (1.8-2.4); PHOSPHORUS 2.1 MG/DL (2.3-4.7); POTASSIUM 3.1 MMOL/L (3.6-5.0); TOTAL PROTEIN 5.6 G/DL (6.4-8.2)
[2016-04-02] MEDS: meTOprolol 5 MG/5 ML (LOPRESSOR) VIAL IV SCH ×3 (05:25→17:43)
[2016-04-02] MEDS: ENOXAPARIN 80 MG/0.8 ML (LOVENOX) SYR SC SCH ×2 (05:25→17:43)
[2016-04-02] MEDS: fentaNYL INJECTION 100 MCG/2 ML AMP IV PRN ×2 (05:33→08:18)
[2016-04-02] MEDS: POTASSIUM CL 10MEQ/50ML IVPB 50 ML IV SCH ×5 (05:35→09:07)
[2016-04-02] MEDS: MAGNESIUM 1 GM/100 ML IVPB 100 ML IV SCH (05:35)
[2016-04-02] MEDS: KCL 20 MEQ TAB (K-DUR) PO SCH (05:36)
--- NOTE | 2016-04-02 06:14 | Progress Note (SOAP) ---
Subjective Subjective/Events-last exam 60 yo M with pSBO- NG was removed yesterday but replaced last night due to malodorous emesis and distended abdomen. Abdomen distension improved. Pt sure wishing things would get to moving. Denies any vomiting. Is passing gas and is very hungry. Currently taking in ice chips as they help his sore throat. Review of Systems General: No Chills HEENT: No Head Aches Pulmonary: Dyspnea (baseline) Cough Cardiovascular: No: Chest Pain, Palpitations Gastrointestinal: : Abdominal Pain: NauseaNo: Vomiting Genitourinary: No Dysuria, No Frequency Musculoskeletal: No: neck pain, shoulder pain Neurological: No: Weakness Objective Exam Vital Signs Date Time Temp Pulse Resp B/P Pulse Ox O2 Delivery O2 Flow Rate FiO2 04/02/16 04:00 98.7 104 20 122/73 100 Nasal Cannula 3.00 04/02/16 04:00 100 Nasal Cannula 3.00 04/02/16 03:00 123 20 119/76 91 Nasal Cannula 3.00 04/02/16 02:30 100 3.00 04/02/16 02:00 97 26 131/73 100 Nasal Cannula 3.00 04/02/16 01:00 107 10 116/90 Nasal Cannula 3.00 04/02/16 01:00 94 04/02/16 00:00 100 Nasal Cannula 3.00 04/02/16 00:00 97.4 103 16 129/79 100 Nasal Cannula 3.00 04/01/16 23:00 105 24 117/72 100 Nasal Cannula 3.00 04/01/16 22:00 104 29 148/83 100 Nasal Cannula 3.00 04/01/16 21:00 103 25 166/90 Nasal Cannula 3.00 04/01/16 20:19 97 3.00 04/01/16 20:00 100 Nasal Cannula 3.00 04/01/16 20:00 93 24 157/87 100 Nasal Cannula 3.00 04/01/16 19:00 105 04/01/16 19:00 97.9 108 17 154/95 99 Nasal Cannula 3.00 04/01/16 17:00 117 30 94 Nasal Cannula 3.00 04/01/16 16:00 Nasal Cannula 3.00 04/01/16 16:00 98.7 04/01/16 16:00 96 11 91 Nasal Cannula 3.00 04/01/16 15:43 98 3.00 04/01/16 14:00 82 25 95 Nasal Cannula 3.00 04/01/16 13:00 102 04/01/16 13:00 96 22 143/78 95 Nasal Cannula 3.00 04/01/16 12:00 97.8 Nasal Cannula 3.00 04/01/16 12:00 Nasal Cannula 3.00 04/01/16 11:00 24 139/80 91 Nasal Cannula 3.00 04/01/16 10:00 84 26 93 Nasal Cannula 3.00 04/01/16 09:00 94 21 129/74 94 Nasal Cannula 3.00 04/01/16 08:00 Nasal Cannula 3.00 04/01/16 08:00 96.9 Nasal Cannula 3.00 04/01/16 07:00 86 13 136/75 99 Nasal Cannula 3.00 04/01/16 07:00 120 04/01/16 06:50 97 3.00 I & O 04/02/16 07:00 Intake Total 2730 ml Output Total 4450 ml Balance -1720 ml Capillary Refill : General Appearance: No Apparent Distress WD/WN HEENT: PERRL/EOMI Other (NG right nares) Neck: Non Tender Supple Respiratory: Chest Non Tender Lungs Clear Cardiovascular: Regular Rate, Rhythm No Edema Gastrointestinal: non tender abnormal bowel sounds distendedNo guarding, No rebound, No tenderness Extremity: Normal Capillary Refill Neurologic/Psychiatric: Alert Oriented x3 Normal Mood/Affect Skin: Warm/Dry Results Lab Laboratory Tests 04/02/16 04:30: Alanine Aminotransferase (ALT/SGPT) 10, Albumin 3.1L, Alkaline Phosphatase 47, Anion Gap 13, Aspartate Amino Transf (AST/SGOT) 14, BUN/Creatinine Ratio 20, Basophils # (Auto) 0.0, Basophils (%) (Auto) 0, Blood Urea Nitrogen 30H, Calcium Level 8.6, Carbon Dioxide Level 24, Chloride Level 103, Creatinine 1.48H , Eosinophils # (Auto) 0.2, Eosinophils (%) (Auto) 3, Estimat Glomerular Filtration Rate 49, Glucose Level 86, Hematocrit 36L, Hemoglobin 11.7L, Lymphocytes # (Auto) 0.9L, Lymphocytes (%) (Auto) 14, Magnesium Level 1.9, Mean Corpuscular Hemoglobin 33, Mean Corpuscular Hemoglobin Concent 33, Mean Corpuscular Volume 101H, Mean Platelet Volume 9.8, Monocytes # (Auto) 0.9, Monocytes (%) (Auto) 14H, Neutrophils # (Auto) 4.4, Neutrophils (%) (Auto) 69, Phosphorus Level 2.1L, Platelet Count 303, Potassium Level 3.1L, Red Blood Count 3.51L, Red Cell Distribution Width 11.9, Sodium Level 140, Total Bilirubin 0.3, Total Protein 5.6L, White Blood Count 6.4 Microbiology 03/29/16 Urine Culture - Final, Complete Assessment/Plan Assessment/Plan Assess & Plan/Chief Complaint 60 yo M admitted 03/28/16 Abdominal pain secondary to partial Small Bowel Obstruction--continue NG tube, pain control, ice chips for now last BM 04/01/16 Dr. Stephens, surgery following Acute Renal Failure due to Dehydration--Cr 1.48 cont IVF, improving COPD- stable 2.5L oxygen Hypomagnesemia--will monitor, replacing prn Hypokalemia- replacing prn Atrial Fibrillation with RVR-- NSR, cardizem drip--> now on metoprolol 5mg q6hr iv, lovenox, Cardiology following malnutrition- PICC line ordered for parenteral nutrition Dispo: Cardiology and surgery following- consider transfer to the floor soon. Diagnosis/Problems: Clinical Quality Measures DVT/VTE Risk/Contraindication: Risk Factor Score Per Nursin RFS Level Per Nursing on Admit: 4+=Very High AMRIK SIDHU MD Apr 02, 2016 06:14
[2016-04-02] MEDS: BISACODYL 10 MG SUPP (DULCOLAX) PR SCH ×2 (08:18→20:24)
[2016-04-02] MEDS: PANTOPRAZOLE 40 MG/10 ML (PROTONIX) VIAL IV SCH ×2 (08:18→20:24)
[2016-04-02] MEDS: NICOTINE PATCH REMOVAL TP SCH (08:18)
[2016-04-02] MEDS: NICOTINE 21 MG (NICODERM) PATCH TD SCH (08:18)
[2016-04-02] MEDS ORDERED: SODIUM PHOSPHATE INJ 45 MM in NS (IVPB) 250 ML INJ ONE (09:15)
--- NOTE | 2016-04-02 09:36 | Diagnostic Imaging Report ---
EXAMINATION: Portable erect AP chest at 510h. INDICATION: Atrial fibrillation The heart size is within normal limits and stable when compared to 04/01/16. The sternotomy wires and surgical clips noted previously are again evident and no different. As on the prior study there is atelectasis/infiltrate and a small amount of fluid involving both lung bases, particularly the right lower lobe. These findings are similar to the prior exam. The upper lungs remain clear. The mediastinum is not widened. The osseous structures are intact. The NG line noted previously is again evident with the tip overlying the gastric fundus. There are still dilated segments of large and small bowel evident. IMPRESSION: Stable chest. There has been no adverse change since the prior exam. Dictated by: Dictated on workstation # [id number]
--- NOTE | 2016-04-02 09:44 | Progress Note ---
Subjective Subjective/Events-last exam Patient feeling a little better. Passing a little flatus. No bm. NG tube in place. States abdomen is a little less distended. No n/v fever sweats chills shortness of breath or chest pain at this time. Objective Exam Vital Signs Date Time Temp Pulse Resp B/P Pulse Ox O2 Delivery O2 Flow Rate FiO2 04/02/16 08:00 100 Nasal Cannula 3.00 04/02/16 07:27 100 3.00 04/02/16 07:00 98 04/02/16 06:00 94 20 132/89 100 Nasal Cannula 3.00 04/02/16 05:00 104 24 113/66 100 Nasal Cannula 3.00 04/02/16 04:00 98.7 104 20 122/73 100 Nasal Cannula 3.00 04/02/16 04:00 100 Nasal Cannula 3.00 04/02/16 03:00 123 20 119/76 91 Nasal Cannula 3.00 04/02/16 02:30 100 3.00 04/02/16 02:00 97 26 131/73 100 Nasal Cannula 3.00 04/02/16 01:00 107 10 116/90 Nasal Cannula 3.00 04/02/16 01:00 94 04/02/16 00:00 100 Nasal Cannula 3.00 04/02/16 00:00 97.4 103 16 129/79 100 Nasal Cannula 3.00 04/01/16 23:00 105 24 117/72 100 Nasal Cannula 3.00 04/01/16 22:00 104 29 148/83 100 Nasal Cannula 3.00 04/01/16 21:00 103 25 166/90 Nasal Cannula 3.00 04/01/16 20:19 97 3.00 04/01/16 20:00 100 Nasal Cannula 3.00 04/01/16 20:00 93 24 157/87 100 Nasal Cannula 3.00 04/01/16 19:00 105 04/01/16 19:00 97.9 108 17 154/95 99 Nasal Cannula 3.00 04/01/16 17:00 117 30 94 Nasal Cannula 3.00 04/01/16 16:00 Nasal Cannula 3.00 04/01/16 16:00 98.7 04/01/16 16:00 96 11 91 Nasal Cannula 3.00 04/01/16 15:43 98 3.00 04/01/16 14:00 82 25 95 Nasal Cannula 3.00 04/01/16 13:00 102 04/01/16 13:00 96 22 143/78 95 Nasal Cannula 3.00 04/01/16 12:00 97.8 Nasal Cannula 3.00 04/01/16 12:00 Nasal Cannula 3.00 04/01/16 11:00 24 139/80 91 Nasal Cannula 3.00 04/01/16 10:00 84 26 93 Nasal Cannula 3.00 I & O 04/02/16 07:00 Intake Total 2780 ml Output Total 4450 ml Balance -1670 ml Capillary Refill : General Appearance: No Apparent Distress WD/WN HEENT: PERRL/EOMI Other (NG right nares) Neck: Non Tender Supple Respiratory: Chest Non Tender Lungs Clear Cardiovascular: Regular Rate, Rhythm No Edema Gastrointestinal: non tender distended (b/l inguinal hernias-reducible)No guarding, No rebound, No tenderness Extremity: Normal Capillary Refill Non Tender Neurologic/Psychiatric: Alert Oriented x3 Normal Mood/Affect Skin: Warm/Dry Lymphatic: No Adenopathy Results Lab Laboratory Tests 04/02/16 04:30: Alanine Aminotransferase (ALT/SGPT) 10, Albumin 3.1L, Alkaline Phosphatase 47, Anion Gap 13, Aspartate Amino Transf (AST/SGOT) 14, BUN/Creatinine Ratio 20, Basophils # (Auto) 0.0, Basophils (%) (Auto) 0, Blood Urea Nitrogen 30H, Calcium Level 8.6, Carbon Dioxide Level 24, Chloride Level 103, Creatinine 1.48H , Eosinophils # (Auto) 0.2, Eosinophils (%) (Auto) 3, Estimat Glomerular Filtration Rate 49, Glucose Level 86, Hematocrit 36L, Hemoglobin 11.7L, Lymphocytes # (Auto) 0.9L, Lymphocytes (%) (Auto) 14, Magnesium Level 1.9, Mean Corpuscular Hemoglobin 33, Mean Corpuscular Hemoglobin Concent 33, Mean Corpuscular Volume 101H, Mean Platelet Volume 9.8, Monocytes # (Auto) 0.9, Monocytes (%) (Auto) 14H, Neutrophils # (Auto) 4.4, Neutrophils (%) (Auto) 69, Phosphorus Level 2.1L, Platelet Count 303, Potassium Level 3.1L, Red Blood Count 3.51L, Red Cell Distribution Width 11.9, Sodium Level 140, Total Bilirubin 0.3, Total Protein 5.6L, White Blood Count 6.4 Microbiology 03/31/16 MRSA Screen - Final, Complete MRSA not isolated 03/29/16 Urine Culture - Final, Complete Assessment/Plan Assessment/Plan Assessment/Plan psbo b/l inguinal hernias-reducible passing small amount of flatus this am, if continues can dc ng tube and then trial liquids continue conservative management at this time. Clinical Quality Measures DVT/VTE Risk/Contraindication: Risk Factor Score Per Nursin RFS Level Per Nursing on Admit: 4+=Very High QUOC EARL DO Apr 02, 2016 9:44 am Dispo: Cardiology and surgery following- consider transfer to the floor soon. Clinical Quality Measures DVT/VTE Risk/Contraindication: Risk Factor Score Per Nursin RFS Level Per Nursing on Admit: 4+=Very High QUOC EARL DO Apr 02, 2016 9:44 am
--- NOTE | 2016-04-02 10:04 | Cardiology Progress Note ---
Subjective Subjective/Events-last exam patient is laying down in bed. Having NG tube. No chest pain, still borderline tachycardic in sinus rhythm Review of Systems General: No Chills, No Night Sweats, No Fatigue, No Malaise, No Appetite, No Other HEENT: No Head Aches, No Visual Changes, No Eye Pain, No Ear Pain, No Dysphasia , No Sinus Congestion, No Post Nasal Drip, No Sore Throat, No Other Pulmonary: No Dyspnea, No Cough, No Pleuritic Chest Pain, No Other Cardiovascular: No: Chest Pain, Edema, Lt Headedness, Orthopnea, Other, Palpitations, Paroxysmal Noc. Dyspnea Gastrointestinal: : Other (abdominal distention) Objective-Cardiology Exam Last Set of Vital Signs Vital Signs 04/02/16 04/02/16 04/02/16 06:00 07:00 08:00 Pulse 98 Resp 20 B/P 132/89 Pulse Ox 100 O2 Delivery Nasal Cannula O2 Flow Rate 3.00 Capillary Refill : I&O Intake and Output 04/02/16 00:00 Intake Total 1580 ml Output Total 4250 ml Balance -2670 ml Intake Oral 240 ml IV Total 1340 ml Output Urine Total 1150 ml Gastric Drainage Total 1000 ml Drainage Total 2100 ml # Emeses 4 General: Alert, Oriented X3, Cooperative HEENT: Atraumatic, PERRLA Neck: Supple, No JVD, No Thyromegaly Lungs: Clear to Auscultation, Normal Air Movement Heart: Regular Rate, Normal S1, Normal S2, No Murmurs Abdomen: Soft, No Masses, Other (NG tube in place, diminished bowel sounds) Extremities: No Clubbing, No Cyanosis, No Edema, Normal Pulses, No Tenderness/ Swelling Skin: No Rashes, No Breakdown, No Significant Lesion Neuro: Normal Gait, Normal Speech, Strength at 5/5 X4 Ext, Normal Tone, Sensation Intact Psych/Mental Status: Mental Status NL, Mood NL Results Lab Laboratory Tests 04/02/16 04:30 A/P-Cardiology Admission Diagnosis Afib with RVR CAD HTN SBO Assessment/Plan Paroxysmal atrial fibrillation, back to sinus rhythm, started on low-dose pressor IV, he is currently with NG tube, continue with IV Lopressor, may go to telemetry with continuation with IV beta blockers. Monitor closely. [id number] score of 5, yearly risk of stroke without OAC is 6.7%. 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 Galaviz CAD- history of CABG x 1 last year, done at [place]. I will try to obtain copy for our records. Clinically stable, continue to monitor. Small bowel obstruction, had a bowel movement yesterday, NG tube is out, starting on diet. Followed and managed by Dr. Stephens Acute on chronic renal insufficiency, improving, continue to monitor renal function Dehydration- continue IVF's and continue to monitor. hypertension, currently borderline hypotensive, continue to monitor blood pressure, starting IV beta blockers. SHAYNA- history of bilat CEA in the past by Dr. Spencer. Continue to monitor as outpatient. Hx of CVA COPD HTP- most recent 2D Echo available from 03/07 revealed PA 85mmHg. Re-eval 2D Echo. Tobaccoism Hypokalemia, hypomagnesemia, being replaced, continue to monitor electrolytes closely. Clinical Quality Measures DVT/VTE Risk/Contraindication: Risk Factor Score Per Nursin RFS Level Per Nursing on Admit: 4+=Very High PAYTON BUTCHER MD Apr 02, 2016 10:04
[2016-04-03] VITALS (7 sets, daily range): BP systolic 110–143; BP diastolic 70–89
[2016-04-03] MEDS: meTOprolol 5 MG/5 ML (LOPRESSOR) VIAL IV SCH ×4 (00:09→17:51)
[2016-04-03] MEDS: RT-ALBUTEROL/IPRATROPIUM 3 ML (DUONEB) VIAL INH SCH ×4 (03:01→20:04)
[2016-04-03] MEDS: fentaNYL INJECTION 100 MCG/2 ML AMP IV PRN (03:10)
[2016-04-03] MEDS: ENOXAPARIN 80 MG/0.8 ML (LOVENOX) SYR SC SCH ×2 (05:19→17:51)
[2016-04-03 05:43] LABS: BASOPHILS % (AUTO) 0 % (0-10); EOSINOPHILS # (AUTO) 0.2 10^3/uL (0.0-0.3); EOSINOPHILS % (AUTO) 3 % (0-10); LYMPHOCYTES # (AUTO) 1.3 X 10^3 (1.0-4.0); LYMPHOCYTES % (AUTO) 16 % (12-44); MEAN CORPUSCULAR HEMOGLOBIN 33 PG (25-34); MEAN CORPUSCULAR HGB CONC 33 G/DL (32-36); MEAN CORPUSCULAR VOLUME 102 FL (80-99); MEAN PLATELET VOLUME 9.3 FL (7.4-10.4); MONOCYTES # (AUTO) 1.4 X 10^3 (0.0-1.0); MONOCYTES % (AUTO) 17 % (0-12); NEUTROPHILS # (AUTO) 5.1 X 10^3 (1.8-7.8); NEUTROPHILS % (AUTO) 64 % (42-75); PLATELET COUNT 326 10^3/uL (130-400); RED BLOOD COUNT 3.49 10^6/uL (4.35-5.85); RED CELL DISTRIBUTION WIDTH 11.9 % (10.0-14.5)
[2016-04-03 06:02] LABS: BILIRUBIN,TOTAL 0.3 MG/DL (0.1-1.0); CALCIUM 8.5 MG/DL (8.5-10.1); CREATININE SERUM 1.31 MG/DL (0.60-1.30); MAGNESIUM 1.3 MG/DL (1.8-2.4); PHOSPHORUS 2.9 MG/DL (2.3-4.7); POTASSIUM 3.2 MMOL/L (3.6-5.0); TOTAL PROTEIN 5.7 G/DL (6.4-8.2)
[2016-04-03] MEDS: NS IV 1000 ML 1,000 ML IV SCH (08:21)
[2016-04-03] MEDS: PANTOPRAZOLE 40 MG/10 ML (PROTONIX) VIAL IV SCH ×2 (08:21→20:42)
[2016-04-03] MEDS: BISACODYL 10 MG SUPP (DULCOLAX) PR SCH ×2 (08:26→20:42)
[2016-04-03] MEDS: NICOTINE 21 MG (NICODERM) PATCH TD SCH (08:26)
[2016-04-03] MEDS: NICOTINE PATCH REMOVAL TP SCH (08:27)
--- NOTE | 2016-04-03 09:02 | Cardiology Progress Note ---
Subjective Subjective/Events-last exam patient laying down in bed, feeling better. Passing gas, had a bowel movement. Review of Systems General: No Chills, No Night Sweats, No Fatigue, No Malaise, No Appetite, No Other HEENT: No Head Aches, No Visual Changes, No Eye Pain, No Ear Pain, No Dysphasia , No Sinus Congestion, No Post Nasal Drip, No Sore Throat, No Other Pulmonary: No Dyspnea, No Cough, No Pleuritic Chest Pain, No Other Cardiovascular: No: Chest Pain, Edema, Lt Headedness, Orthopnea, Other, Palpitations, Paroxysmal Noc. Dyspnea Objective-Cardiology Exam Last Set of Vital Signs Vital Signs 04/03/16 04/03/16 08:06 08:21 Temp 98.3 Pulse 100 Resp 18 B/P 140/76 Pulse Ox 94 O2 Delivery Nasal Cannula O2 Flow Rate 2.00 Capillary Refill : I&O Intake and Output 04/03/16 00:00 Intake Total 2050 ml Output Total 2902 ml Balance -852 ml Intake Oral 1000 ml IV Total 1050 ml Output Urine Total 452 ml Gastric Drainage Total 2450 ml # Voids 8 General: Alert, Oriented X3, Cooperative HEENT: Atraumatic, PERRLA Neck: Supple, No JVD, No Thyromegaly Lungs: Clear to Auscultation, Normal Air Movement Heart: Regular Rate, Normal S1, Normal S2, No Murmurs Abdomen: Soft, No Tenderness, No Masses, Other Extremities: No Clubbing, No Cyanosis, No Edema, Normal Pulses, No Tenderness/ Swelling Skin: No Rashes, No Breakdown, No Significant Lesion Neuro: Normal Gait, Normal Speech, Strength at 5/5 X4 Ext, Normal Tone, Sensation Intact Psych/Mental Status: Mental Status NL, Mood NL Results Lab Laboratory Tests 04/03/16 05:30 A/P-Cardiology Admission Diagnosis Afib with RVR CAD HTN SBO Assessment/Plan Paroxysmal atrial fibrillation, back to sinus rhythm, started on low-dose pressor IV, he is currently with NG tube, I will change IV Lopressor to oral metoprolol and monitor his tolerance and response. Hypomagnesemia, evaluate EKG, I noted on telemetry strip some ST depression. [id number] score of 5, yearly risk of stroke without OAC is 6.7%. 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 Galaviz CAD- history of CABG x 1 last year, done at [place]. I will try to obtain copy for our records. Clinically stable, continue to monitor. Small bowel obstruction, had a bowel movement yesterday, NG tube is out, starting on diet. Followed and managed by Dr. Stephens Acute on chronic renal insufficiency, improving, continue to monitor renal function Dehydration- continue IVF's and continue to monitor. hypertension, currently borderline hypotensive, continue to monitor blood pressure, starting IV beta blockers. SHAYNA- history of bilat CEA in the past by Dr. Spencer. Continue to monitor as outpatient. Hx of CVA COPD History of pulmonary hypertension. Continue to monitor Tobaccoism Clinical Quality Measures DVT/VTE Risk/Contraindication: Risk Factor Score Per Nursin RFS Level Per Nursing on Admit: 4+=Very High PAYTON BUTCHER MD Apr 03, 2016 09:02
--- NOTE | 2016-04-03 09:40 | Diagnostic Imaging Report ---
INDICATION: Atrial fibrillation. EXAMINATION: Chest, 04/03/2016. COMPARISON: 04/02/2016. FINDINGS: Mild cardiomegaly is noted. Pulmonary vasculature is mildly congested. Bibasilar atelectasis versus infiltrate stable. Remaining lungs unchanged. Sternotomy wires and mediastinal clips are seen. Tiny bilateral effusions are also seen. There is a left-sided PICC line with the tip extending into the right atrium. Dilated loops of bowel seen in the upper abdomen. IMPRESSION: 1. Stable chest. 2. Mild bibasilar atelectasis noted. 3. Dilated loops of small bowel in the upper abdomen correlate clinically. Dictated by: Dictated on workstation # [id number]
--- NOTE | 2016-04-03 10:04 | Diagnostic Imaging Report ---
EXAM: ABDOMEN/KUB 1VIEW INDICATION: Small bowel obstruction. COMPARISON: Abdominal radiographs 04/01/2016. FINDINGS: There remain several dilated gaseously filled loops of small bowel throughout the midabdomen. Postoperative changes in the lower lumbar spine. IMPRESSION: Persistent dilated loops of small bowel throughout the midabdomen. Dictated by: Dictated on workstation # [id number]
--- NOTE | 2016-04-03 10:06 | Progress Note ---
Subjective Subjective/Events-last exam feeling better. no nausea or emesis. had 3 bm's last night. denies fever sweats chills shortness of breath or chest pain. Objective Exam Vital Signs Date Time Temp Pulse Resp B/P Pulse Ox O2 Delivery O2 Flow Rate FiO2 04/03/16 08:21 94 2.00 04/03/16 08:06 98.3 100 18 140/76 96 Nasal Cannula 2.00 04/03/16 04:00 98.0 100 19 143/77 96 Nasal Cannula 2.00 04/03/16 03:01 94 2.00 04/03/16 01:00 97 04/03/16 00:00 98.1 105 18 135/78 97 Nasal Cannula 3.00 04/02/16 21:00 98.4 110 19 137/77 95 Nasal Cannula 3.00 04/02/16 21:00 99 Nasal Cannula 3.00 04/02/16 20:34 94 2.00 04/02/16 19:00 117 04/02/16 16:00 99.2 98 136/74 96 Nasal Cannula 3.00 04/02/16 15:39 94 2.00 04/02/16 13:00 96 04/02/16 11:00 104 142/77 100 Nasal Cannula 3.00 I & O 04/03/16 07:00 Intake Total 850 ml Output Total 1252 ml Balance -402 ml Capillary Refill : General Appearance: No Apparent Distress WD/WN HEENT: PERRL/EOMI Other (NG right nares) Neck: Non Tender Supple Respiratory: Chest Non Tender Lungs Clear Cardiovascular: Regular Rate, Rhythm No Edema Gastrointestinal: non tender distended (b/l reducible inguinal hernia slight distention, improved from yesterday)No guarding, No rebound, No tenderness Extremity: Normal Capillary Refill Non Tender Neurologic/Psychiatric: Alert Oriented x3 Normal Mood/Affect Skin: Warm/Dry Lymphatic: No Adenopathy Results Lab Laboratory Tests 04/03/16 05:30: Alanine Aminotransferase (ALT/SGPT) 7, Albumin 3.0L, Alkaline Phosphatase 46, Anion Gap 16H, Aspartate Amino Transf (AST/SGOT) 17, BUN/Creatinine Ratio 17, Basophils # (Auto) 0.0, Basophils (%) (Auto) 0, Blood Urea Nitrogen 22H, Calcium Level 8.5, Carbon Dioxide Level 22, Chloride Level 105, Creatinine 1.31H , Eosinophils # (Auto) 0.2, Eosinophils (%) (Auto) 3, Estimat Glomerular Filtration Rate 56, Glucose Level 82, Hematocrit 36L, Hemoglobin 11.6L, Lymphocytes # (Auto) 1.3, Lymphocytes (%) (Auto) 16, Magnesium Level 1.3L, Mean Corpuscular Hemoglobin 33, Mean Corpuscular Hemoglobin Concent 33, Mean Corpuscular Volume 102H, Mean Platelet Volume 9.3, Monocytes # (Auto) 1.4H, Monocytes (%) (Auto) 17H, Neutrophils # (Auto) 5.1, Neutrophils (%) (Auto) 64, Phosphorus Level 2.9, Platelet Count 326, Potassium Level 3.2L, Prealbumin 8.6L , Red Blood Count 3.49L, Red Cell Distribution Width 11.9, Sodium Level 143, Total Bilirubin 0.3, Total Protein 5.7L, Triglycerides Level 96, White Blood Count 8.0 Microbiology 03/31/16 MRSA Screen - Final, Complete MRSA not isolated 03/29/16 Urine Culture - Final, Complete Assessment/Plan Assessment/Plan Assessment/Plan psbo b/l inguinal hernias-reducible passing small amount of flatus this am and 3 bm last night start clears Clinical Quality Measures DVT/VTE Risk/Contraindication: Risk Factor Score Per Nursin RFS Level Per Nursing on Admit: 4+=Very High QUOC EARL DO Apr 03, 2016 10:06 am
[2016-04-03] MEDS ORDERED: MAGNESIUM 1 GM/100 ML IVPB 100 ML IV NR (10:15)
[2016-04-03] MEDS: MAGNESIUM 1 GM/100 ML IVPB 100 ML IV SCH ×2 (10:15→12:10)
[2016-04-03] MEDS: POTASSIUM CL 10MEQ/50ML IVPB 50 ML IV SCH ×3 (10:56→13:10)
--- NOTE | 2016-04-03 14:59 | Progress Note (SOAP) ---
Subjective Subjective/Events-last exam pSBO- the bowels look like they may be waking/opening up. Pt reports 3 bowel movements and feeling much better. No nausea or vomiting. Passing flatus. He is hungry. No other complaints. Hoping he does not have to stay many more days because he can't afford the bills. Review of Systems General: No Chills, No Night Sweats HEENT: No Head Aches Pulmonary: No Dyspnea, No Cough Cardiovascular: No: Chest Pain, Palpitations Gastrointestinal: No: Nausea, Vomiting Genitourinary: No Dysuria Musculoskeletal: No: neck pain Neurological: : Weakness Objective Exam Vital Signs Date Time Temp Pulse Resp B/P Pulse Ox O2 Delivery O2 Flow Rate FiO2 04/03/16 14:11 91 2.00 04/03/16 12:32 98.0 96 18 136/72 96 Nasal Cannula 2.00 04/03/16 09:00 100 Nasal Cannula 3.00 04/03/16 08:21 94 2.00 04/03/16 08:06 98.3 100 18 140/76 96 Nasal Cannula 2.00 04/03/16 07:12 99 04/03/16 04:00 98.0 100 19 143/77 96 Nasal Cannula 2.00 04/03/16 03:01 94 2.00 04/03/16 01:00 97 04/03/16 00:00 98.1 105 18 135/78 97 Nasal Cannula 3.00 04/02/16 21:00 98.4 110 19 137/77 95 Nasal Cannula 3.00 04/02/16 21:00 99 Nasal Cannula 3.00 04/02/16 20:34 94 2.00 04/02/16 19:00 117 04/02/16 16:00 99.2 98 136/74 96 Nasal Cannula 3.00 04/02/16 15:39 94 2.00 I & O 04/03/16 07:00 Intake Total 850 ml Output Total 1252 ml Balance -402 ml Capillary Refill : General Appearance: No Apparent Distress HEENT: PERRL/EOMI Neck: Non Tender Supple Respiratory: Chest Non Tender Lungs Clear Cardiovascular: Regular Rate, Rhythm No Edema Gastrointestinal: non tender soft Extremity: Normal Capillary Refill Non Tender Neurologic/Psychiatric: Alert Oriented x3 Skin: Normal Color Warm/Dry Results Lab Laboratory Tests 04/03/16 05:30: Alanine Aminotransferase (ALT/SGPT) 7, Albumin 3.0L, Alkaline Phosphatase 46, Anion Gap 16H, Aspartate Amino Transf (AST/SGOT) 17, BUN/Creatinine Ratio 17, Basophils # (Auto) 0.0, Basophils (%) (Auto) 0, Blood Urea Nitrogen 22H, Calcium Level 8.5, Carbon Dioxide Level 22, Chloride Level 105, Creatinine 1.31H , Eosinophils # (Auto) 0.2, Eosinophils (%) (Auto) 3, Estimat Glomerular Filtration Rate 56, Glucose Level 82, Hematocrit 36L, Hemoglobin 11.6L, Lymphocytes # (Auto) 1.3, Lymphocytes (%) (Auto) 16, Magnesium Level 1.3L, Mean Corpuscular Hemoglobin 33, Mean Corpuscular Hemoglobin Concent 33, Mean Corpuscular Volume 102H, Mean Platelet Volume 9.3, Monocytes # (Auto) 1.4H, Monocytes (%) (Auto) 17H, Neutrophils # (Auto) 5.1, Neutrophils (%) (Auto) 64, Phosphorus Level 2.9, Platelet Count 326, Potassium Level 3.2L, Prealbumin 8.6L , Red Blood Count 3.49L, Red Cell Distribution Width 11.9, Sodium Level 143, Total Bilirubin 0.3, Total Protein 5.7L, Triglycerides Level 96, White Blood Count 8.0 Microbiology 03/31/16 MRSA Screen - Final, Complete MRSA not isolated 03/29/16 Urine Culture - Final, Complete Assessment/Plan Assessment/Plan Assess & Plan/Chief Complaint 60 yo M admitted 03/28/16 Abdominal pain secondary to partial Small Bowel Obstruction-- improving last BM 04/02/16 x3 passing flatus, advanced to [facility] Dr. Stephens, surgery following Acute Renal Failure due to Dehydration--Cr 1.31 cont IVF, improving! COPD- stable 2.5L oxygen Hypomagnesemia--will monitor, replacing prn Hypokalemia- replacing prn Atrial Fibrillation with RVR-- NSR, metoprolol 5mg q6hr iv, lovenox, Cardiology following malnutrition- PICC line in left arm-- TPN was not started- [facility] started Dispo: Monitor BM and I/O. [facility]D. ARF improving. replacing lytes Diagnosis/Problems: Clinical Quality Measures DVT/VTE Risk/Contraindication: Risk Factor Score Per Nursin RFS Level Per Nursing on Admit: 4+=Very High AMRIK SIDHU MD Apr 03, 2016 14:59
[2016-04-03] MEDS ORDERED: MAGNESIUM 1 GM/100 ML IVPB 100 ML IV SCH (15:00)
[2016-04-03] MEDS ORDERED: POTASSIUM CL 10MEQ/50ML IVPB 50 ML IV SCH (15:00)
[2016-04-03] MEDS: ONDANSETRON 4 MG/2 ML (SDV) Z0FRAN IVP PRN (17:51)
[2016-04-03] MEDS: LORazepam INJ 2 MG/ML (ATIVAN) VIAL IVP PRN (20:56)
[2016-04-04] VITALS (16 sets, daily range): BP systolic 83–127; BP diastolic 23–95
[2016-04-04] MEDS: meTOprolol 5 MG/5 ML (LOPRESSOR) VIAL IV SCH ×3 (00:01→12:42)
[2016-04-04] MEDS: NS IV 1000 ML 1,000 ML IV SCH ×2 (00:01→12:42)
[2016-04-04] MEDS: ONDANSETRON 4 MG/2 ML (SDV) Z0FRAN IVP PRN ×2 (01:27→08:27)
[2016-04-04] MEDS: RT-ALBUTEROL/IPRATROPIUM 3 ML (DUONEB) VIAL INH SCH ×3 (03:09→15:57)
[2016-04-04] MEDS: fentaNYL INJECTION 100 MCG/2 ML AMP IV PRN (04:26)
[2016-04-04 05:27] LABS: BASOPHILS % (AUTO) 0 % (0-10); EOSINOPHILS # (AUTO) 0.1 10^3/uL (0.0-0.3); EOSINOPHILS % (AUTO) 1 % (0-10); LYMPHOCYTES # (AUTO) 1.2 X 10^3 (1.0-4.0); LYMPHOCYTES % (AUTO) 11 % (12-44); MEAN CORPUSCULAR HEMOGLOBIN 33 PG (25-34); MEAN CORPUSCULAR HGB CONC 33 G/DL (32-36); MEAN CORPUSCULAR VOLUME 101 FL (80-99); MEAN PLATELET VOLUME 9.5 FL (7.4-10.4); MONOCYTES # (AUTO) 1.2 X 10^3 (0.0-1.0); MONOCYTES % (AUTO) 12 % (0-12); NEUTROPHILS % (AUTO) 76 % (42-75); PLATELET COUNT 342 10^3/uL (130-400); RED BLOOD COUNT 3.75 10^6/uL (4.35-5.85); RED CELL DISTRIBUTION WIDTH 12.2 % (10.0-14.5); WHITE BLOOD COUNT 10.5 10^3/uL (4.3-11.0)
[2016-04-04 05:48] LABS: ALBUMIN 3.2 G/DL (3.2-4.5); BILIRUBIN,TOTAL 0.3 MG/DL (0.1-1.0); CALCIUM 8.7 MG/DL (8.5-10.1); CREATININE SERUM 1.67 MG/DL (0.60-1.30); MAGNESIUM 1.4 MG/DL (1.8-2.4); PHOSPHORUS 3.7 MG/DL (2.3-4.7); TOTAL PROTEIN 5.8 G/DL (6.4-8.2)
[2016-04-04] MEDS: NICOTINE PATCH REMOVAL TP SCH (08:27)
[2016-04-04] MEDS: PANTOPRAZOLE 40 MG/10 ML (PROTONIX) VIAL IV SCH (08:27)
[2016-04-04] MEDS: NICOTINE 21 MG (NICODERM) PATCH TD SCH (08:27)
[2016-04-04] MEDS: BISACODYL 10 MG SUPP (DULCOLAX) PR SCH (08:28)
--- NOTE | 2016-04-04 08:42 | Cardiology Progress Note ---
Subjective Subjective/Events-last exam Patient in bed. Noted to be tachycardic this morning. Denies any CP. Continues to complain of some abdominal discomfort. Review of Systems General: No Night Sweats, No Fatigue, No Malaise HEENT: No Visual Changes, No Dysphasia, No Sore Throat Pulmonary: DyspneaNo Cough, No Pleuritic Chest Pain Cardiovascular: No: Chest Pain, Edema, Palpitations, Paroxysmal Noc. Dyspnea Gastrointestinal: : Abdominal PainNo: Nausea, Vomiting Genitourinary: No Dysuria, No Frequency Musculoskeletal: No: back pain, neck pain Neurological: No: Change in speech, Confusion, Numbness, Weakness Objective-Cardiology Exam Last Set of Vital Signs Vital Signs 04/04/16 04/04/16 04/04/16 04:10 05:50 07:00 Temp 98.6 Pulse 110 Resp 20 B/P 115/72 Pulse Ox 90 O2 Delivery Nasal Cannula O2 Flow Rate 2.00 Capillary Refill : I&O Intake and Output 04/04/16 00:00 Intake Total 1400 ml Output Total 300 ml Balance 1100 ml Intake Oral 400 ml IV Total 1000 ml Output Urine Total 300 ml # Voids 5 # Bowel Movements 4 General: Alert, Oriented X3, Cooperative HEENT: Atraumatic, PERRLA Neck: Supple, No JVD, No Thyromegaly Lungs: Clear to Auscultation, Normal Air Movement Heart: Regular Rate, Normal S1, Normal S2, No Murmurs Abdomen: No Masses, Other (mild distension, diffusely ttp) Extremities: No Clubbing, No Cyanosis, No Edema, Normal Pulses, No Tenderness/ Swelling Skin: No Rashes, No Breakdown, No Significant Lesion Neuro: Normal Gait, Normal Speech, Strength at 5/5 X4 Ext, Normal Tone, Sensation Intact Psych/Mental Status: Mental Status NL, Mood NL Results Lab Laboratory Tests 04/04/16 05:15 A/P-Cardiology Admission Diagnosis Afib with RVR CAD HTN SBO Assessment/Plan Paroxysmal atrial fibrillation, back to sinus rhythm, started on low-dose Lopressor IV, telemetry reveals sinus tachycardia. Continue to monitor. Hypomagnesemia, replace, continue to monitor EKG. Hypokalemia- replace and continue to monitor. [id number] score of 5, yearly risk of stroke without OAC is 6.7%. 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 Galaviz CAD- history of CABG x 1 last year, done at [place]. I will try to obtain copy for our records. Clinically stable, continue to monitor. Small bowel obstruction, Followed and managed by Dr. Stephens, planning for exploratory laparoscopy, possible bowel resection today. Acute on chronic renal insufficiency, improving, continue to monitor renal function Dehydration- continue IVF's and continue to monitor. hypertension, currently borderline hypotensive, continue to monitor blood pressure, starting IV beta blockers. SHAYNA- history of bilat CEA in the past by Dr. Spencer. Continue to monitor as outpatient. Hx of CVA COPD History of pulmonary hypertension. Continue to monitor Tobaccoism Clinical Quality Measures DVT/VTE Risk/Contraindication: Risk Factor Score Per Nursin RFS Level Per Nursing on Admit: 4+=Very High DAWN OCONNELL Apr 04, 2016 08:42
--- NOTE | 2016-04-04 08:57 | Cardiology Progress Note ---
Subjective Subjective/Events-last exam Patient is in bed, still having abdominal distension, no chest pain or shortness of breath Review of Systems General: No Chills, No Night Sweats, No Fatigue, No Malaise, No Appetite, No Other HEENT: No Head Aches, No Visual Changes, No Eye Pain, No Ear Pain, No Dysphasia , No Sinus Congestion, No Post Nasal Drip, No Sore Throat, No Other Pulmonary: No Dyspnea, No Cough, No Pleuritic Chest Pain, No Other Cardiovascular: No: Chest Pain, Edema, Lt Headedness, Orthopnea, Other, Palpitations, Paroxysmal Noc. Dyspnea Objective-Cardiology Exam Last Set of Vital Signs Vital Signs 04/04/16 08:47 Temp 97.4 Pulse 108 Resp 16 B/P 100/65 Pulse Ox 92 O2 Delivery Nasal Cannula O2 Flow Rate 5.00 Capillary Refill : I&O Intake and Output 04/04/16 00:00 Intake Total 1400 ml Output Total 300 ml Balance 1100 ml Intake Oral 400 ml IV Total 1000 ml Output Urine Total 300 ml # Voids 5 # Bowel Movements 4 General: Alert, Oriented X3, Cooperative HEENT: Atraumatic, PERRLA Neck: Supple, No JVD, No Thyromegaly Lungs: Clear to Auscultation, Normal Air Movement Heart: Regular Rate, Normal S1, Normal S2, No Murmurs Abdomen: No Masses, Other (mild distension, diffusely ttp) Extremities: No Clubbing, No Cyanosis, No Edema, Normal Pulses, No Tenderness/ Swelling Skin: No Rashes, No Breakdown, No Significant Lesion Neuro: Normal Gait, Normal Speech, Strength at 5/5 X4 Ext, Normal Tone, Sensation Intact Psych/Mental Status: Mental Status NL, Mood NL Results Lab Laboratory Tests 04/04/16 05:15 A/P-Cardiology Admission Diagnosis Afib with RVR CAD HTN SBO Assessment/Plan Paroxysmal atrial fibrillation, back to sinus rhythm, started on low-dose Lopressor IV, telemetry reveals sinus tachycardia. Continue to monitor. Hypokalemia, Hypomagnesemia, need replacement, managed by primary care physician and Dr Stephens [id number] score of 5, yearly risk of stroke without OAC is 6.7%. continue on Lovenox, patient will need to be on NOAC prior to discharge Echocardiogram was of poor quality, there is questionable echogenic density in the left atrium, recommend DIAN, discussed it with the patient, he prefer to have it done as an outpatient with his primary licensed acupuncturist Dr. Galaviz CAD- history of CABG x 1 last year, done at [facility]. I will try to obtain copy for our records. Clinically stable, continue to monitor. Small bowel obstruction, Followed and managed by Dr. Stephens, planning for exploratory laparoscopy, possible bowel resection today. Acute on chronic renal insufficiency, improving, continue to monitor renal function Dehydration- continue IVF's and continue to monitor. hypertension, currently borderline hypotensive, continue to monitor blood pressure, starting IV beta blockers. SHAYNA- history of bilat CEA in the past by Dr. Spencer. Continue to monitor as outpatient. Hx of CVA COPD History of pulmonary hypertension. Continue to monitor Tobaccoism Patient is considered at intermediate to high risk for perioperative cardiovascular complications, decision regarding the surgery, risk vs benefits is deferred to the surgeon Clinical Quality Measures DVT/VTE Risk/Contraindication: Risk Factor Score Per Nursin RFS Level Per Nursing on Admit: 4+=Very High PAYTON BUTCHER MD Apr 04, 2016 08:57
--- NOTE | 2016-04-04 09:28 | Diagnostic Imaging Report ---
INDICATION: Chest pain. COMPARISON: 04/03/2016. FINDINGS: The sternal wires are midline. The heart size is stable. No gross overdistention of the vascularity. Mixed changes in the mild infiltrates bilaterally have occurred. The opacity in the right lower lobe medially has improved; however, the left perihilar disease has slightly increased. IMPRESSION: The bilateral infiltrates or edema show mixed change, decreased on the right but slightly increased on the left. Background COPD is stable. The heart size is stable. No definite pleural fluid or pneumothorax. Dictated by: Dictated on workstation # [id number]
[2016-04-04] MEDS ORDERED: LACTATED RINGERS 1,000 ML IV PRN (11:29)
--- NOTE | 2016-04-04 11:53 | Progress Note-Pre Operative ---
Pre-Operative Progress Note H&P Reviewed The H&P was reviewed, patient examined and no changes noted. Date H&P Reviewed: Apr 04, 2016 Time H&P Reviewed: 11:45 Pre-Operative Diagnosis: small bowel obstruction, bilateral symptomatic inguinal hernia BRITTANY CHAPA MD Apr 04, 2016 11:53
[2016-04-04] MEDS ORDERED: ceFAZolin 2 GM/50 ML NS 50 ML IV ONE (14:00)
[2016-04-04] MEDS ORDERED: BUP/EPI 0.5% 1:200,000 (SENSORCAINE) 30 ML VIAL ONE (14:42)
[2016-04-04] MEDS ORDERED: MIDAZOLAM 2 MG/2 ML (VERSED) VIAL ONE (14:50)
[2016-04-04] MEDS ORDERED: fentaNYL INJECTION 100 MCG/2 ML AMP ONE ×4 (14:51→19:11)
[2016-04-04] MEDS ORDERED: MEPERIDINE (DEMEROL) INJ 50 MG/ML ONE (14:59)
[2016-04-04] MEDS ORDERED: HYDROmorphone (DILAUDID) 2 MG/ML VIAL ONE (14:59)
[2016-04-04] MEDS: LACTATED RINGERS 1,000 ML IV SCH ×3 (15:30→19:25)
[2016-04-04] MEDS ORDERED: HEParin (CENTRAL IV FLUSH) 500 UNIT/5 ML SYR ONE (15:45)
[2016-04-04] MEDS ORDERED: LIDOCAINE PF 2% 10 ML (XYLOCAINE) AMP ONE (16:35)
[2016-04-04] MEDS ORDERED: PHENYLEPHRINE 100 MCG/ML 10 ML (ANESTHESIA) SYR ONE (16:35)
[2016-04-04] MEDS ORDERED: SUCCINYLCHOLINE INJ 100 MG/5 ML SYR ONE (16:35)
[2016-04-04] MEDS ORDERED: LACTATED RINGERS 1,000 ML IV ONE ×3 (16:35→19:23)
[2016-04-04] MEDS ORDERED: ROCURONIUM 50 MG/5 ML (ZEMURON) VIAL IV ONE (16:35)
[2016-04-04] MEDS ORDERED: ESMOLOL 100 MG/10 ML (BREVIBLOC) VIAL ONE (16:35)
[2016-04-04] MEDS ORDERED: proPOfol 200 MG/20 ML (DIPRIVAN) VIAL IV ONE (16:35)
[2016-04-04] MEDS ORDERED: SEVOFLURANE (ULTANE) 15 ML INHAL SOLN ONE ×2 (16:35→19:02)
[2016-04-04] MEDS ORDERED: ONDANSETRON 4 MG/2 ML (SDV) Z0FRAN ONE (17:22)
[2016-04-04] MEDS ORDERED: ISOFLURANE (FORANE) 15 ML/15 MIN INHALATION ONE (19:02)
[2016-04-04] MEDS ORDERED: GLYCOPYRROLATE 0.2 MG/ML (ROBINUL) 2 ML VIAL ONE (19:02)
[2016-04-04] MEDS ORDERED: NEOSTIGMINE (BLOXIVERZ ) 1 MG/1ML 10 ML VIAL ONE (19:02)
--- NOTE | 2016-04-04 19:19 | Progress Note-Post Operative ---
Post-Operative Progess Note Pre-Operative Diagnosis small bowel obstruction, bilateral symptomatic inguinal hernia Post-Operative Diagnosis small bowel obstruction secondary to internal hernia and adhsions. Post-Op Procedure Note Date of Procedure: Apr 04, 2016 Name of Procedure: diagnostic laparoscopy, laparoscopic lysis of adhesions(120 minutes), small bowel resection and anastamosis, placement left subclavian central venous catheter. Anesthesia Type GET Estimated blood loss (mL): minimal Specimen(s) collected small bowel BRITTANY CHAPA MD Apr 04, 2016 7:19 pm
[2016-04-04] MEDS ORDERED: TPN IV SCH (19:45)
[2016-04-04] MEDS ORDERED: NS IV 500 ML 500 ML ONE (19:49)
--- NOTE | 2016-04-04 20:01 | Diagnostic Imaging Report ---
INDICATION: ET tube placement, bowel resection. COMPARISON: 04/04/16. FINDINGS: Single view of the chest demonstrates an ET tube in the midtrachea. PICC line entering from the left is seen in the SVC. NG tube is in the stomach. There is some infiltrates in the mid right lung. IMPRESSION: 1. Well-positioned ET tube without pneumothorax. 2. Mid right lung infiltrate. Followup recommended. Dictated by: Dictated on workstation # [id number]
[2016-04-04] MEDS ORDERED: ONDANSETRON 4 MG/2 ML (SDV) Z0FRAN IV ONE (20:45)
[2016-04-04 20:47] LABS: ABG BASE EXCESS -3.4 MMOL/L (-2.5-2.5); ABG HCO3 27 MMOL/L (23-27); ABG OXYGEN SATURATION 98 % (94-100); ABG PH 7.17 (7.37-7.43); ABG PO2 135 MMHG (79-93); ABG TCO2 29.4 MMOL/L (21.0-31.0)
[2016-04-04 20:48] LABS: ABG PCO2 77 MMHG (35-45)
[2016-04-04 20:52] LABS: ALLENS TEST POSITIVE
[2016-04-04] MEDS ORDERED: MIDAZOLAM 5 MG/5 ML (VERSED) VIAL ONE (21:26)
[2016-04-04] MEDS ORDERED: NS (IVPB) 100 ML ONE (21:37)
--- NOTE | 2016-04-04 21:54 | Progress Note (SOAP) ---
Subjective Subjective/Events-last exam Fwup small bowel obstruction, acute renal failure, dehydration, COPD, Atrial fibrillation with RVR. Has remained in NSR and NG tube out but more distended and plan is for exploratory lap today. Objective Exam Vital Signs Date Time Temp Pulse Resp B/P Pulse Ox O2 Delivery O2 Flow Rate FiO2 04/04/16 16:11 High Flow NC 8.00 04/04/16 13:00 102 04/04/16 12:00 98.2 113 18 118/69 92 High Flow NC 8.00 04/04/16 10:03 87 5.00 04/04/16 09:00 91 Nasal Cannula 5.00 04/04/16 08:47 97.4 108 16 100/65 92 Nasal Cannula 5.00 04/04/16 07:00 110 04/04/16 05:50 107 115/72 04/04/16 04:10 98.6 101 20 83/50 90 Nasal Cannula 2.00 04/04/16 03:10 81 04/04/16 01:00 91 04/03/16 23:45 98.8 103 20 110/70 94 Nasal Cannula 2.00 I & O 04/04/16 07:00 Intake Total 1400 ml Output Total 150 ml Balance 1250 ml Capillary Refill : General Appearance: No Apparent Distress Neck: Supple Respiratory: Lungs Clear Cardiovascular: Regular Rate, Rhythm Systolic Murmur Gallop/S3 Gastrointestinal: non tender abnormal bowel sounds (hypoactive) distended Extremity: Non Tender No Calf Tenderness No Pedal Edema Neurologic/Psychiatric: Alert Oriented x3 Results Lab Laboratory Tests 04/04/16 05:15: Alanine Aminotransferase (ALT/SGPT) 8, Albumin 3.2, Alkaline Phosphatase 50, Anion Gap 17H, Aspartate Amino Transf (AST/SGOT) 13, BUN/Creatinine Ratio 14, Basophils # (Auto) 0.0, Basophils (%) (Auto) 0, Blood Urea Nitrogen 24H, Calcium Level 8.7, Carbon Dioxide Level 23, Chloride Level 103, Creatinine 1.67H , Eosinophils # (Auto) 0.1, Eosinophils (%) (Auto) 1, Estimat Glomerular Filtration Rate 42, Glucose Level 98, Hematocrit 38L, Hemoglobin 12.4L, Lymphocytes # (Auto) 1.2, Lymphocytes (%) (Auto) 11L, Magnesium Level 1.4L, Mean Corpuscular Hemoglobin 33, Mean Corpuscular Hemoglobin Concent 33, Mean Corpuscular Volume 101H, Mean Platelet Volume 9.5, Monocytes # (Auto) 1.2H, Monocytes (%) (Auto) 12, Neutrophils # (Auto) 8.0H, Neutrophils (%) (Auto) 76H, Phosphorus Level 3.7, Platelet Count 342, Potassium Level 3.0L, Red Blood Count 3.75L, Red Cell Distribution Width 12.2, Sodium Level 143, Total Bilirubin 0.3, Total Protein 5.8L, White Blood Count 10.5 04/04/16 20:22: Aubrey Test POSITIVE, Arterial Blood Base Excess -3.4L, Arterial Blood HCO3 27, Arterial Blood Oxygen Saturation 98, Arterial Blood Partial Pressure CO2 77*H, Arterial Blood Partial Pressure O2 135H, Arterial Blood Total CO2 29.4, Arterial Blood pH 7.17*L, Blood Gas Inspired Oxygen 100%, Blood Gas Patient Temperature 99.0, Blood Gas Puncture Site LEFT RADIAL, Blood Gas Ventilator Setting YES Microbiology 03/31/16 MRSA Screen - Final, Complete MRSA not isolated 03/29/16 Urine Culture - Final, Complete Assessment/Plan Assessment/Plan Assess & Plan/Chief Complaint 1. Small Bowel Obstruction--exploratory lap by Dr. Stephens today 2. Acute Renal Failure/Dehydration--continue IVF and monitor Cr--Cr improving daily 3. COPD--stable 4. Hypomagnesemia--stable, will monitor 5. Atrial Fibrillation with RVR--back in NSR, on IV lopressor due to surgery Diagnosis/Problems: Clinical Quality Measures DVT/VTE Risk/Contraindication: Risk Factor Score Per Nursin RFS Level Per Nursing on Admit: 4+=Very High AIME CANO DO Apr 04, 2016 9:54 pm
[2016-04-04] MEDS ORDERED: MIDAZOLAM 2 MG/2 ML (VERSED) VIAL IV ONE (22:30)
[2016-04-04] MEDS ORDERED: fentaNYL INJECTION 100 MCG/2 ML AMP IV ONE (22:30)
--- NOTE | 2016-04-04 22:55 | Progress Note-Standard ---
Standard Progress Note Progress Notes/Assess & Plan Progress/Assessment & Plan 214504/04/16: Called to ICU 10 for emergency intubation. I had left this patient around 2100 after leaving him on the vent postop. Patient had apparently bit through the ett and needed reintubated. Upon my arrival at 215, patient's SaO2 was 86% and being ventilated by RT; however, a good seal was not able to be established. Patient had been given 100 mcg Fentanyl and 2 versed IV right before I arrived, thus I gave 80 mg Succinylcholine and intubated. Unable to visualize good view of cords with MAC 4, thus the Ha was utilized with grade 1 view and 8.0 ett passed easily with positive color change and bilateral breath sounds, although they were diminished. CXR obtained. SaO2 increased to 94 %. EICU physician then asked me to make more attempts at starting an arterial line. After several more attempts, I was able to place a 20g art line catheter in the right brachial. Good waveform noted. Reported off to MUKESH Serrano and MUKESH Burrell. NOEMI OAKLEY CRNA Apr 04, 2016 22:55
[2016-04-04 22:58] LABS: ABG BASE EXCESS -2.8 MMOL/L (-2.5-2.5); ABG HCO3 28 MMOL/L (23-27); ABG OXYGEN SATURATION 94 % (94-100); ABG PO2 87 MMHG (79-93); ABG TCO2 29.9 MMOL/L (21.0-31.0)
[2016-04-04] MEDS ORDERED: LACTATED RINGERS 1,000 ML IV SCH (23:00)
[2016-04-04 23:01] LABS: ABG PCO2 79 MMHG (35-45); ABG PH 7.16 (7.37-7.43)
[2016-04-04 23:02] LABS: ALLENS TEST ART LINE
[2016-04-04 23:03] LABS: PATIENT TEMP 99.8
[2016-04-04] MEDS ORDERED: NOREPINEPHRINE 4 MG/4 ML (LEVOPHED) AMP IV ONE (23:13)
[2016-04-04] MEDS ORDERED: D5W 250 ML (IVPB) 250 ML IV ONE (23:14)
[2016-04-04] MEDS: NOREPINEPHRINE 4 MG in D5W 250 ML IV SCH (23:20)
[2016-04-04 23:42] LABS: BASOPHILS % (AUTO) 0 % (0-10); EOSINOPHILS % (AUTO) 0 % (0-10); LYMPHOCYTES # (AUTO) 0.5 X 10^3 (1.0-4.0); LYMPHOCYTES % (AUTO) 3 % (12-44); MEAN CORPUSCULAR HEMOGLOBIN 34 PG (25-34); MEAN CORPUSCULAR HGB CONC 34 G/DL (32-36); MEAN CORPUSCULAR VOLUME 102 FL (80-99); MEAN PLATELET VOLUME 9.5 FL (7.4-10.4); MONOCYTES # (AUTO) 0.5 X 10^3 (0.0-1.0); MONOCYTES % (AUTO) 3 % (0-12); NEUTROPHILS # (AUTO) 15.4 X 10^3 (1.8-7.8); NEUTROPHILS % (AUTO) 94 % (42-75); PLATELET COUNT 394 10^3/uL (130-400); RED BLOOD COUNT 4.05 10^6/uL (4.35-5.85); RED CELL DISTRIBUTION WIDTH 12.5 % (10.0-14.5); WHITE BLOOD COUNT 16.4 10^3/uL (4.3-11.0)
[2016-04-04] MEDS ORDERED: VANCOMYCIN 1250 MG/NS 250 ML IVPB IV ONE ×2 (23:45)
[2016-04-04] MEDS ORDERED: PIPERACILLIN/TAZOBACTAM 4.5 GM/NS100 ML IVPB IV ONE ×2 (23:45)
[2016-04-04 23:52] LABS: INR 1.3 (0.8-1.4); PROTHROMBIN TIME PATIENT 16.2 SEC (12.2-14.7)
[2016-04-04] MEDS: LORazepam INJ 2 MG/ML (ATIVAN) VIAL IV PRN (23:54)
[2016-04-05] VITALS (33 sets, daily range): BP systolic 77–152; BP diastolic 41–84
[2016-04-05 00:02] LABS: ALANINE AMINOTRANSFERASE 8 U/L (0-55); ALBUMIN 2.8 G/DL (3.2-4.5); ANION GAP 16 MMOL/L (5-14); ASPARTATE AMINO TRANSFERASE 18 U/L (5-34); BILIRUBIN,TOTAL 0.3 MG/DL (0.1-1.0); BLOOD UREA NITROGEN 34 MG/DL (7-18); BUN/CREATININE RATIO 13; CALCIUM 7.8 MG/DL (8.5-10.1); CARBON DIOXIDE 21 MMOL/L (21-32); CHLORIDE 105 MMOL/L (98-107); CREATININE SERUM 2.67 MG/DL (0.60-1.30); GFR ESTIMATED 25; GLUCOSE 95 MG/DL (70-105); MAGNESIUM 1.1 MG/DL (1.8-2.4); PHOSPHORUS 6.6 MG/DL (2.3-4.7); POTASSIUM 3.7 MMOL/L (3.6-5.0); SODIUM 142 MMOL/L (135-145); TOTAL PROTEIN 5.4 G/DL (6.4-8.2)
[2016-04-05 00:08] LABS: TROPONIN I < 0.30 NG/ML (<0.30)
[2016-04-05 00:11] LABS: BAND NEUTROPHILS 41 %; LYMPHOCYTES % (MANUAL) 3 %; NEUTROPHILS % (MANUAL) 47 %
[2016-04-05] MEDS ORDERED: VASOPRESSIN INJECTION 20 UNIT/ML VIAL ONE ×2 (00:11→00:19)
[2016-04-05 00:12] LABS: METAMYELOCYTES % 4 %
[2016-04-05] MEDS ORDERED: NS (IVPB) 50 ML ONE (00:12)
[2016-04-05] MEDS: VASOPRESSIN INJECTION 20 UNIT in NS (IVPB) 50 ML IV SCH ×3 (00:15→18:42)
[2016-04-05 00:27] LABS: ABG BASE EXCESS -3.5 MMOL/L (-2.5-2.5); ABG HCO3 24 MMOL/L (23-27); ABG OXYGEN SATURATION 96 % (94-100); ABG PCO2 57 MMHG (35-45); ABG PO2 99 MMHG (79-93); ABG TCO2 25.7 MMOL/L (21.0-31.0)
[2016-04-05 00:29] LABS: ABG PH 7.25 (7.37-7.43)
[2016-04-05 00:30] LABS: ALLENS TEST ART LINE; PATIENT TEMP 100.9
[2016-04-05] MEDS ORDERED: NS (IVPB) 250 ML ONE (01:06)
[2016-04-05] MEDS ORDERED: MIDAZOLAM FOR DRIPS 10 MG/2 ML VIAL ONE (01:06)
[2016-04-05] MEDS ORDERED: fentaNYL (OMNICELL DRIP KIT ONLY) 250 MCG/5 ML AMP ONE ×2 (01:47→01:54)
[2016-04-05] MEDS ORDERED: NS (IVPB) 100 ML ONE (01:48)
[2016-04-05] MEDS: PANTOPRAZOLE 40 MG/10 ML (PROTONIX) VIAL IV SCH ×3 (02:04→21:31)
[2016-04-05] MEDS: fentaNYL INJECTION 1,250 MCG in NS (IVPB) 225 ML IV SCH ×2 (02:07→18:06)
[2016-04-05] MEDS ORDERED: FUROSEMIDE 40 MG/4 ML INJ (LASIX) IVP ONE ×2 (02:15→05:00)
[2016-04-05] MEDS ORDERED: LACTATED RINGERS 1,000 ML IV SCH (02:15)
[2016-04-05] MEDS: meTOprolol 5 MG/5 ML (LOPRESSOR) VIAL IV SCH ×6 (02:15→22:53)
[2016-04-05] MEDS: BISACODYL 10 MG SUPP (DULCOLAX) PR SCH ×3 (02:28→21:00)
[2016-04-05] MEDS: NOREPINEPHRINE 4 MG in D5W 250 ML IV SCH ×5 (03:15→20:56)
[2016-04-05] MEDS ORDERED: VANCOMYCIN 750 MG ADD-VANTAGE VIAL IV ONE (03:31)
[2016-04-05] MEDS ORDERED: VANCOMYCIN 500 MG/VIAL IV ONE (03:32)
[2016-04-05] MEDS ORDERED: SODIUM CHLORIDE (ADD-VANTAGE) 250 ML ONE (03:34)
[2016-04-05 03:56] LABS: ABG BASE EXCESS -2.8 MMOL/L (-2.5-2.5); ABG HCO3 23 MMOL/L (23-27); ABG OXYGEN SATURATION 99 % (94-100); ABG PCO2 47 MMHG (35-45); ABG PO2 184 MMHG (79-93); ABG TCO2 24.5 MMOL/L (21.0-31.0); BASOPHILS % (AUTO) 0 % (0-10); EOSINOPHILS % (AUTO) 0 % (0-10); LYMPHOCYTES # (AUTO) 0.5 X 10^3 (1.0-4.0); LYMPHOCYTES % (AUTO) 2 % (12-44); MEAN CORPUSCULAR HEMOGLOBIN 33 PG (25-34); MEAN CORPUSCULAR HGB CONC 32 G/DL (32-36); MEAN CORPUSCULAR VOLUME 102 FL (80-99); MEAN PLATELET VOLUME 9.7 FL (7.4-10.4); MONOCYTES # (AUTO) 0.8 X 10^3 (0.0-1.0); MONOCYTES % (AUTO) 3 % (0-12); NEUTROPHILS # (AUTO) 23.9 X 10^3 (1.8-7.8); NEUTROPHILS % (AUTO) 95 % (42-75); PLATELET COUNT 391 10^3/uL (130-400); RED BLOOD COUNT 3.84 10^6/uL (4.35-5.85); RED CELL DISTRIBUTION WIDTH 12.4 % (10.0-14.5); WHITE BLOOD COUNT 25.2 10^3/uL (4.3-11.0)
[2016-04-05 04:00] LABS: ABG PH 7.32 (7.37-7.43); ALLENS TEST A-LINE; PATIENT TEMP 100.7
[2016-04-05] MEDS: AA 4.25% W/LYTES IN D5W IV SOL 1,000 ML IV SCH ×2 (04:04→09:05)
[2016-04-05 04:07] LABS: INR 1.5 (0.8-1.4); PROTHROMBIN TIME PATIENT 17.5 SEC (12.2-14.7)
[2016-04-05 04:19] LABS: ALBUMIN 2.5 G/DL (3.2-4.5); BILIRUBIN,TOTAL 0.4 MG/DL (0.1-1.0); CALCIUM 7.8 MG/DL (8.5-10.1); CREATININE SERUM 2.68 MG/DL (0.60-1.30); PHOSPHORUS 3.8 MG/DL (2.3-4.7); POTASSIUM 3.4 MMOL/L (3.6-5.0); TOTAL PROTEIN 4.9 G/DL (6.4-8.2)
[2016-04-05] MEDS: RT-ALBUTEROL/IPRATROPIUM 3 ML (DUONEB) VIAL INH SCH ×6 (04:19→22:01)
[2016-04-05] MEDS: MAGNESIUM 1 GM/100 ML IVPB 100 ML IV SCH ×6 (05:00→16:58)
[2016-04-05] MEDS: POTASSIUM CL 10MEQ/50ML IVPB 50 ML IV SCH ×4 (05:27→17:16)
[2016-04-05] MEDS: KCL 20 MEQ TAB (K-DUR) PO SCH (05:28)
[2016-04-05] MEDS ORDERED: MAGNESIUM 1 GM/100 ML IVPB 100 ML IV SCH (06:00)
[2016-04-05] MEDS ORDERED: PIPERACILLIN/TAZOBACTAM 4.5 GM/NS100 ML IVPB IV SCH ×2 (06:00)
[2016-04-05] MEDS ORDERED: POTASSIUM CL 10MEQ/50ML IVPB 50 ML IV SCH (06:00)
[2016-04-05] MEDS ORDERED: PROPOFOL DRIP (ICU) 100 ML IV ONE ×2 (06:20→14:59)
--- NOTE | 2016-04-05 06:29 | Pulmonary Consultation ---
History of Present Illness History of Present Illness Date of Consultation 04/05/16 06:24 Date of Admission Reason for Visit: Afib with RVR History of Present Illness 60yo with hx of CAD, COPD initially presented secondary to N, V and found to have SBO. Pt then taken to OR for ex lap. After surgery pt was left on vent secondary to abnormal ABG. PT did bite through ET tube and was reintubated with new tube. Pt was also hypotensive and received 7 liters of LR however then received 40mg of lasix. Unable to obtain ROS secondary to pt being sedated on ventilator. Allergies and Home Medications Allergies Coded Allergies: morphine (Verified Adverse Reaction, Intermediate, CONFUSION, 12/04/14) Home Medications Acetaminophen 325 Mg Tablet 650 MG PO MoTh (Reported) Aspirin 81 Mg Tabec 81 MG PO Q48H (Reported) Diphenhydramine HCl 50 Mg/1 Ml Vial 25 MG IV MoTh (Reported) Esomeprazole Magnesium 22.3 Mg Capsule.dr 22.3 MG PO DAILY PRN PRN HEARTBURN ( Reported) Fluticasone Propionate 9.9 Ml [place].susp 1 SPR NS BID PRN PRN ALLERGIES ( Reported) Furosemide 40 Mg Tablet 80 MG PO Q48H (Reported) TAKES 2 (40MG) TABLETS Hydrocodone/Acetaminophen 1 Each Tablet 1 TAB PO Q4H PRN PRN PAIN (Reported) Ipratropium/Albuterol Sulfate 3 Ml Ampul.neb 3 ML IH QID (Reported) Levothyroxine Sodium 50 Mcg Tablet 50 MCG PO DAILY (Reported) Magnesium Sulfate/D5w 1 Gm/100 Ml Piggyback 2 GM IV MoTh (Reported) Metoprolol Tartrate 100 Mg Tablet 100 MG PO BID (Reported) Multivitamin 1 Each Tablet 1 TAB PO DAILY (Reported) Potassium Chloride 20 Meq Tab.er.prt 30 MEQ PO Q48H (Reported) TAKES 1 & 1/2 (20MEQ) TABLET Spironolactone 25 Mg Tablet 25 MG PO DAILY (Reported) Vitamin B Complex 1 Each Tablet 100 MG PO DAILY (Reported) Past Hwjgvaq-Rplnuj-Ovxpbx Hx Patient Social History Alcohol Use: Occasionally Uses Recreational Drug Use: No Smoking Status: Former Smoker Type Used: Cigarettes Former Smoker/When Quit: May 08, 2014 Recent Foreign Travel: No Contact w/Someone Who Travel: No Recent Infectious Disease Expo: No Recent Hopitalizations: Yes Physical Abuse Screen: No Sexual Abuse: No Immunizations Up To Date Tetanus Booster (TDap): Unknown PED Vaccines UTD: Yes Date of Pneumonia Vaccine: Nov 21, 2015 Date of Influenza Vaccine: Nov 21, 2015 Surgeries HX Surgeries: Yes (Left/right carotid, back (rods), neck sx, right leg, left ankle) Surgeries: CABG, Orthopedic, Vascular Surgery Respiratory Hx Respiratory Disorders: Yes (COPD, Home 02 at 2.5L ) Respiratory Disorders: Pneumonia, COPD Cardiovascular Hx Cardiac Disorders: Yes (CABG nov 2014, hypomagnesemia, low sodium level) Cardiac Disorders: Coronary Artery Disease, Hypertension Neurological Hx Neurological Disorders: No Reproductive System Hx Reproductive Disorders: No Sexually Transmitted Disease: No HIV/AIDS: No Genitourinary Hx Genitourinary Disorders: No Gastrointestinal Hx Gastrointestinal Disorders: No (inguinal hernia) Gastrointestinal Disorders: Gastroesophageal Reflux, Gastrointestinal Bleed Musculoskeletal Hx Musculoskeletal Disorders: Yes Musculoskeletal Disorders: Back Injury, Chronic Back Pain Endocrine Hx Endocrine Disorders: No HEENT HX ENT Disorders: Yes HEENT Disorders: Cataract Loss of Vision: Denies Hearing Impairment: Denies Cancer Hx Cancer: Yes Cancer: Skin Psychosocial Hx Psychiatric Problems: No Integumentary HX Skin/Integumentary Disorder: No Blood Transfusions Hx Blood Disorders: No Adverse Reaction to a Blood Tr: No Family Medical History Significant Family History: No Pertinent Family Hx Family Medial History: Diabetes mellitus 19 FATHER 19 MOTHER FH: COPD (chronic obstructive pulmonary disease) 19 MOTHER Hypertension 19 FATHER 19 MOTHER Prostate cancer 19 FATHER Exam Exam Vital Signs Date Time Temp Pulse Resp B/P Pulse Ox O2 Delivery O2 Flow Rate FiO2 04/05/16 06:00 99 23 110/68 100 Mechanical Ventilator 60.00 04/05/16 05:34 99.7 04/05/16 05:00 102 24 113/69 100 Mechanical Ventilator 60.00 04/05/16 04:37 102 24 100 80 04/05/16 04:00 112 24 97/64 99 Mechanical Ventilator 100.00 04/05/16 04:00 80 04/05/16 03:00 112 23 107/70 98 Mechanical Ventilator 100.00 04/05/16 02:00 114 18 140/84 97 Mechanical Ventilator 100.00 04/05/16 01:15 120 04/05/16 01:00 126 04/05/16 01:00 126 16 113/66 99 Mechanical Ventilator 100.00 04/05/16 00:30 134 8 134/67 98 Mechanical Ventilator 100.00 04/05/16 00:00 80 04/05/16 00:00 135 14 82/48 98 Mechanical Ventilator 100.00 04/04/16 23:30 141 10 94/53 91 Mechanical Ventilator 100.00 04/04/16 23:00 133 31 94/23 87 Mechanical Ventilator 100.00 04/04/16 22:45 148 33 80 04/04/16 22:30 122 36 105/68 93 Mechanical Ventilator 100.00 04/04/16 22:15 121 10 105/58 94 Mechanical Ventilator 100.00 04/04/16 22:00 124 12 121/70 Mechanical Ventilator 100.00 04/04/16 21:45 121 17 96/59 Mechanical Ventilator 100.00 04/04/16 21:30 126 10 104/53 Mechanical Ventilator 100.00 04/04/16 21:15 130 36 127/67 Mechanical Ventilator 100.00 04/04/16 21:11 129 04/04/16 21:00 126 16 107/46 Mechanical Ventilator 100.00 04/04/16 20:52 125 14 104/64 Mechanical Ventilator 100.00 04/04/16 20:40 124 37 123/34 Mechanical Ventilator 100.00 04/04/16 20:30 129 118/95 98 Mechanical Ventilator 100.00 04/04/16 20:30 100 04/04/16 19:20 128 30 100 04/04/16 16:11 High Flow NC 8.00 04/04/16 13:00 102 04/04/16 12:00 98.2 113 18 118/69 92 High Flow NC 8.00 04/04/16 10:03 87 5.00 04/04/16 09:00 91 Nasal Cannula 5.00 04/04/16 08:47 97.4 108 16 100/65 92 Nasal Cannula 5.00 04/04/16 07:00 110 I & O 04/05/16 07:00 Intake Total 4750 ml Output Total 4312 ml Balance 438 ml General Appearance: No Apparent Distress HEENT: PERRL/EOMI Neck: Supple Respiratory: Lungs Clear Cardiovascular: Regular Rate, Rhythm Systolic Murmur Gallop/S3 Gastrointestinal: non tender abnormal bowel sounds (hypoactive) distended Extremity: Non Tender No Calf Tenderness No Pedal Edema Neurologic/Psychiatric: Alert Oriented x3 Skin: Normal Color Warm/Dry Lymphatic: No Adenopathy Results Lab Laboratory Tests 04/04/16 05:15 04/04/16 23:25 04/05/16 00:19 04/05/16 03:46 Assessment/Plan Assessment/Plan Acute respiratory failure requiring ventilator secondary to aspiration -PT is currently on zosyn and vancomycin -Continue ventilator therapy -wean oxygen aggressively Small bowel obstruction s/p ex lap Inguinal hernia bilateral -Hernia's were reduced last night Acute renal failure/dehydration Arterial Fibrillation with RVR Clinical Quality Measures DVT/VTE Risk/Contraindication: Risk Factor Score Per Nursin RFS Level Per Nursing on Admit: 4+=Very High GRETCHEN OLSEN DO Apr 05, 2016 06:29
[2016-04-05] MEDS ORDERED: RT-ALBUTEROL/IPRATROPIUM 3 ML (DUONEB) VIAL INH SCH (06:30)
--- NOTE | 2016-04-05 07:33 | Diagnostic Imaging Report ---
INDICATION: Post reintubation Comparison study: Chest from 04/04-. FINDINGS: A portable supine view of the chest demonstrates an endotracheal tube, left subclavian catheter and left arm PICC line in good position. An enteric tube transverses the radiograph with its first sidehole in the body of the stomach. Sternotomy changes are present. Some infiltrates in the right midlung and left base have worsened. The vascularity has increased. A small left pleural effusion is again identified. IMPRESSION: Interval increase of the pulmonary infiltrates and pulmonary vascularity. A small pleural effusion is stable. Dictated by: Dictated on workstation # [id number]
--- NOTE | 2016-04-05 07:36 | Diagnostic Imaging Report ---
INDICATION: Abdominal distention, scrotal distention, postop. FINDINGS: Supine view of the abdomen demonstrates small bowel to the distended. Bowel loops are seen overlying the scrotum. Findings are worrisome for a small bowel obstruction. Postoperative changes are present to the spine. IMPRESSION: There are dilated loops of small bowel with bowel seen overlying the scrotum. Findings are worrisome for a hernia with small bowel obstruction. CRITICAL FINDING: Report was called to Maggie/MUKESH [facility] in-patient by edna at 7:37 am. Dictated by: Dictated on workstation # [id number]
[2016-04-05] MEDS ORDERED: VANCOMYCIN INJECTION 0.1 MG in NS (IVPB) 250 ML IV SCH (08:00)
--- NOTE | 2016-04-05 08:16 | Cardiology Progress Note ---
Subjective Subjective/Events-last exam patient is intubated, failed attempt for extubation postoperatively, sedated, unable to provide any history, history was obtained by reviewing his records Review of Systems General: Other (health provide review of systems) Objective-Cardiology Exam Last Set of Vital Signs Vital Signs 04/05/16 04/05/16 04/05/16 04/05/16 05:34 06:00 06:46 06:53 Temp 99.7 Pulse 93 Resp 24 B/P 123/70 Pulse Ox 100 O2 Delivery Mechanical Ventilator O2 Flow Rate 60.00 FiO2 50 Capillary Refill : I&O Intake and Output 04/05/16 00:00 Intake Total 4050 ml Output Total 3587 ml Balance 463 ml Intake Oral 0 ml IV Total 4050 ml Output Urine Total 837 ml Gastric Drainage Total 2750 ml # Voids 1 General: Severe Distress, Other (sedated and intubated) HEENT: Atraumatic Neck: Supple, No JVD, No Thyromegaly Lungs: Normal Air Movement, Other (bilateral rhonchi) Heart: Normal S1, Normal S2, No Murmurs, Other (tachycardic) Abdomen: No Masses, Other (absent bowel sounds) Extremities: No Clubbing, No Cyanosis, No Edema, Normal Pulses, No Tenderness/ Swelling Skin: No Rashes, No Breakdown, No Significant Lesion Neuro: Other (sedated and intubated) Psych/Mental Status: Mental Status NL, Other (sedated and intubated) Results Lab Laboratory Tests 04/04/16 23:25 04/05/16 00:19 04/05/16 03:46 A/P-Cardiology Admission Diagnosis Afib with RVR CAD HTN SBO Assessment/Plan Acute respiratory failure, failed extubation postoperatively. Managed by Dr. Mcdaniel Small bowel obstruction, status post exploratory laparotomy, recovering slowly Acute on chronic renal failure, worsening renal function, receiving IV fluid. Continue to monitor Paroxysmal atrial fibrillation, back to sinus rhythm, in sinus tachycardia, continue on IV Lopressor and monitor closely [id number] score of 5, yearly risk of stroke without OAC is 6.7%. restart Lovenox when tolerated. Need to be on NOAC prior to discharge Echocardiogram was of poor quality, there is questionable echogenic density in the left atrium, recommend DIAN, discussed it with the patient, he prefer to have it done as an outpatient with his primary durability engineer Dr. Galaviz CAD- history of CABG x 1 last year, done at [facility]. I will try to obtain copy for our records. Clinically stable, continue to monitor. SHAYNA- history of bilat CEA in the past by Dr. Spencer. Continue to monitor as outpatient. Hx of CVA COPD History of pulmonary hypertension. Continue to monitor Tobaccoism Clinical Quality Measures DVT/VTE Risk/Contraindication: Risk Factor Score Per Nursin RFS Level Per Nursing on Admit: 4+=Very High PAYTON BUTCHER MD Apr 05, 2016 08:16
[2016-04-05] MEDS: PIPERACILLIN SODIUM/TAZOBACTAM 4.5 GM in NS (IVPB) 100 ML IV SCH ×3 (08:51→23:04)
--- NOTE | 2016-04-05 08:54 | Diagnostic Imaging Report ---
INDICATION: Atrial fibrillation. Frontal chest obtained at 4:05 a.m. and compared with yesterday. FINDINGS: Heart is borderline in size. Patient has had previous sternotomy. ET tube and central venous catheter and NG tube are unchanged. Extensive alveolar infiltrate in the right midlung and base again noted and unchanged. There is some improvement in previous left basilar infiltrate. There is no pneumothorax or pleural fluid. IMPRESSION: Unchanged extensive right lung infiltrate. Partial improvement in left basilar infiltrate compared to the prior study. No pneumothorax or pleural fluid or other new finding. Life-support lines are stable. Dictated by: Dictated on workstation # [id number]
[2016-04-05] MEDS: NICOTINE 21 MG (NICODERM) PATCH TD SCH (09:12)
[2016-04-05] MEDS: NICOTINE PATCH REMOVAL TP SCH (09:20)
--- NOTE | 2016-04-05 11:10 | Anesthesia-General Post-Op ---
General Patient Condition Mental Status/LOC: Same as Preop Cardiovascular: Satisfactory Nausea/Vomiting: Absent Respiratory: Satisfactory Pain: Controlled Complications: Absent Post Op Complications Complications None Follow Up Care/Instructions Patient Instructions None needed. Anesthesia/Patient Condition Patient Condition Patient is doing well, no complaints, stable vital signs, no apparent adverse anesthesia problems. No complications reported per nursing. CESAR NUNEZ CRNA Apr 05, 2016 11:10
--- NOTE | 2016-04-05 12:06 | Anesthesia-General Post-Op ---
General Patient Condition Mental Status/LOC: Same as Preop Cardiovascular: Satisfactory Nausea/Vomiting: Absent Respiratory: Unsatisfactory (pt remains intubated from nature of surgery) Pain: Controlled Complications: Absent Post Op Complications Complications None Follow Up Care/Instructions Patient Instructions None needed. Anesthesia/Patient Condition Patient Condition remains intubated, no complaints, stable vital signs, no apparent adverse anesthesia problems. No complications reported per nursing. CESAR NUNEZ CRNA Apr 05, 2016 12:06
--- NOTE | 2016-04-05 12:13 | Progress Note (SOAP) ---
Subjective Subjective/Events-last exam on vent and sedated. cardiogenic shock like picture. ileus based on AXR. Objective Exam Vital Signs Date Time Temp Pulse Resp B/P Pulse Ox O2 Delivery O2 Flow Rate FiO2 04/05/16 11:37 50 04/05/16 10:54 74/41 04/05/16 10:47 133 24 97 40 04/05/16 09:05 105 24 100 40 04/05/16 08:30 50 04/05/16 08:30 98.9 101 23 126/67 100 Mechanical Ventilator 50.00 04/05/16 07:00 99 04/05/16 06:53 93 123/70 04/05/16 06:46 94 24 100 50 04/05/16 06:00 99 23 110/68 100 Mechanical Ventilator 60.00 04/05/16 05:34 99.7 04/05/16 05:00 102 24 113/69 100 Mechanical Ventilator 60.00 04/05/16 04:37 102 24 100 80 04/05/16 04:00 112 24 97/64 99 Mechanical Ventilator 100.00 04/05/16 04:00 80 04/05/16 03:00 112 23 107/70 98 Mechanical Ventilator 100.00 04/05/16 02:00 114 18 140/84 97 Mechanical Ventilator 100.00 04/05/16 01:15 120 04/05/16 01:00 126 04/05/16 01:00 126 16 113/66 99 Mechanical Ventilator 100.00 04/05/16 00:30 134 8 134/67 98 Mechanical Ventilator 100.00 04/05/16 00:00 80 04/05/16 00:00 135 14 82/48 98 Mechanical Ventilator 100.00 04/04/16 23:30 141 10 94/53 91 Mechanical Ventilator 100.00 04/04/16 23:00 133 31 94/23 87 Mechanical Ventilator 100.00 04/04/16 22:45 148 33 80 04/04/16 22:30 122 36 105/68 93 Mechanical Ventilator 100.00 04/04/16 22:15 121 10 105/58 94 Mechanical Ventilator 100.00 04/04/16 22:00 124 12 121/70 Mechanical Ventilator 100.00 04/04/16 21:45 121 17 96/59 Mechanical Ventilator 100.00 04/04/16 21:30 126 10 104/53 Mechanical Ventilator 100.00 04/04/16 21:15 130 36 127/67 Mechanical Ventilator 100.00 04/04/16 21:11 129 04/04/16 21:00 126 16 107/46 Mechanical Ventilator 100.00 04/04/16 20:52 125 14 104/64 Mechanical Ventilator 100.00 04/04/16 20:40 124 37 123/34 Mechanical Ventilator 100.00 04/04/16 20:30 129 118/95 98 Mechanical Ventilator 100.00 04/04/16 20:30 100 04/04/16 19:20 128 30 100 04/04/16 16:11 High Flow NC 8.00 04/04/16 13:00 102 I & O 04/05/16 07:00 Intake Total 4850 ml Output Total 4937 ml Balance -87 ml Capillary Refill : General Appearance: No Apparent Distress HEENT: PERRL/EOMI Neck: Full Range of Motion Respiratory: Decreased Breath Sounds Rhonci Cardiovascular: Regular Rate, Rhythm Gastrointestinal: soft other (wounds clean/dry, mild distention) Extremity: Normal Capillary Refill Neurologic/Psychiatric: Other (responds to pain) Skin: Normal Color Lymphatic: No Adenopathy Results Lab Laboratory Tests 04/04/16 20:22: Aubrey Test POSITIVE, Arterial Blood Base Excess -3.4L, Arterial Blood HCO3 27, Arterial Blood Oxygen Saturation 98, Arterial Blood Partial Pressure CO2 77*H, Arterial Blood Partial Pressure O2 135H, Arterial Blood Total CO2 29.4, Arterial Blood pH 7.17*L, Blood Gas Inspired Oxygen 100%, Blood Gas Patient Temperature 99.0, Blood Gas Puncture Site LEFT RADIAL, Blood Gas Ventilator Setting YES 04/04/16 22:45: Aubrey Test ART LINE, Arterial Blood Base Excess -2.8L, Arterial Blood HCO3 28H, Arterial Blood Oxygen Saturation 94, Arterial Blood Partial Pressure CO2 79*H, Arterial Blood Partial Pressure O2 87, Arterial Blood Total CO2 29.9, Arterial Blood pH 7.16*L, Blood Gas Inspired Oxygen 80%, Blood Gas Patient Temperature 99.8, Blood Gas Puncture Site ART LINE, Blood Gas Ventilator Setting YES 04/04/16 23:25: Alanine Aminotransferase (ALT/SGPT) 8, Albumin 2.8L, Alkaline Phosphatase 51, Anion Gap 16H, Aspartate Amino Transf (AST/SGOT) 18, B-Type Natriuretic Peptide 663.0H, BUN/Creatinine Ratio 13, Band Neutrophils 41, Basophils # (Auto) 0.0, Basophils (%) (Auto) 0, Blood Morphology Comment NORMAL, Blood Urea Nitrogen 34H , Calcium Level 7.8L, Carbon Dioxide Level 21, Chloride Level 105, Creatinine 2.67H, Eosinophils # (Auto) 0.0, Eosinophils (%) (Auto) 0, Estimat Glomerular Filtration Rate 25, Glucose Level 95, Hematocrit 41, Hemoglobin 13.9, INR Comment 1.3, Lactic Acid Level 2.0, Lymphocytes # (Auto) 0.5L, Lymphocytes % ( Manual) 3, Lymphocytes (%) (Auto) 3L, Magnesium Level 1.1L, Mean Corpuscular Hemoglobin 34, Mean Corpuscular Hemoglobin Concent 34, Mean Corpuscular Volume 102H, Mean Platelet Volume 9.5, Metamyelocytes % 4, Monocytes # (Auto) 0.5, Monocytes % (Manual) 5, Monocytes (%) (Auto) 3, Neutrophils # (Auto) 15.4H, Neutrophils % (Manual) 47, Neutrophils (%) (Auto) 94H, Phosphorus Level 6.6H, Platelet Count 394, Potassium Level 3.7, Prothrombin Time 16.2H, Red Blood Count 4.05L, Red Cell Distribution Width 12.5, Sodium Level 142, Total Bilirubin 0.3, Total Protein 5.4L, Troponin I < 0.30, White Blood Count 16.4H 04/05/16 00:19: Aubrey Test ART LINE, Arterial Blood Base Excess -3.5L, Arterial Blood HCO3 24, Arterial Blood Oxygen Saturation 96, Arterial Blood Partial Pressure CO2 57H, Arterial Blood Partial Pressure O2 99H, Arterial Blood Total CO2 25.7, Arterial Blood pH 7.25*L, Blood Gas Inspired Oxygen 80%, Blood Gas Patient Temperature 100.9, Blood Gas Puncture Site ART LINE, Blood Gas Ventilator Setting YES, Hematocrit 40, Hemoglobin 13.5 04/05/16 03:46: Alanine Aminotransferase (ALT/SGPT) 8, Albumin 2.5L, Alkaline Phosphatase 42, Aubrey Test A-LINE, Anion Gap 16H, Arterial Blood Base Excess -2.8L, Arterial Blood HCO3 23, Arterial Blood Oxygen Saturation 99, Arterial Blood Partial Pressure CO2 47H, Arterial Blood Partial Pressure O2 184H, Arterial Blood Total CO2 24.5, Arterial Blood pH 7.32*L, Aspartate Amino Transf (AST/SGOT) 20, BUN/ Creatinine Ratio 13, Basophils # (Auto) 0.0, Basophils (%) (Auto) 0, Blood Gas Inspired Oxygen 80%, Blood Gas Patient Temperature 100.7, Blood Gas Puncture Site A-LINE, Blood Gas Ventilator Setting YES, Blood Urea Nitrogen 35H, Calcium Level 7.8L, Carbon Dioxide Level 20L, Chloride Level 105, Creatinine 2.68H, Eosinophils # (Auto) 0.0, Eosinophils (%) (Auto) 0, Estimat Glomerular Filtration Rate 25, Glucose Level 144H, Hematocrit 39L, Hemoglobin 12.7L, INR Comment 1.5H, Lymphocytes # (Auto) 0.5L, Lymphocytes (%) (Auto) 2L, Magnesium Level 1.0*L, Mean Corpuscular Hemoglobin 33, Mean Corpuscular Hemoglobin Concent 32, Mean Corpuscular Volume 102H, Mean Platelet Volume 9.7, Monocytes # (Auto) 0.8, Monocytes (%) (Auto) 3, Neutrophils # (Auto) 23.9H, Neutrophils (%) (Auto) 95H, Phosphorus Level 3.8, Platelet Count 391, Potassium Level 3.4L, Prealbumin 5.0L, Prothrombin Time 17.5H, Red Blood Count 3.84L, Red Cell Distribution Width 12.4, Sodium Level 141, Total Bilirubin 0.4, Total Protein 4.9L, Triglycerides Level 74, White Blood Count 25.2H Microbiology 03/31/16 MRSA Screen - Final, Complete MRSA not isolated 03/29/16 Urine Culture - Final, Complete Assessment/Plan Assessment/Plan Assess & Plan/Chief Complaint PSBO s/p laparoscopic lysis of adhesions and small bowel resection. underlying cardiopulmonary disease and renal failure. on vent and sedated. cardiogenic shock like picture. continue supportive care for now. small bowel dilatation most likely ileus, not hernias for they are easily reducible. will continue NGT and TPN for now. Diagnosis/Problems: Clinical Quality Measures DVT/VTE Risk/Contraindication: Risk Factor Score Per Nursin RFS Level Per Nursing on Admit: 4+=Very High BRITTANY CHAPA MD Apr 05, 2016 12:13
[2016-04-05] MEDS ORDERED: TROUGH ORDER-PHARMACY XX NR (13:00)
[2016-04-05] MEDS ORDERED: VANCOMYCIN 1 GM/NS 250 ML IVPB IV SCH ×2 (14:00)
[2016-04-05] MEDS ORDERED: SUCCINYLCHOLINE INJ 100 MG/5 ML SYR INJ ONE (14:06)
[2016-04-05] MEDS: RT-BUDESONIDE NEBS 0.5 MG/2ML (PULMICORT) AMP INH SCH ×2 (14:37→22:01)
[2016-04-05] MEDS: HYDROCORTISONE 100 MG/2 ML (Solu-CORTEF) VIAL IV SCH ×2 (14:39→22:53)
[2016-04-05] MEDS: LACTATED RINGERS 1,000 ML IV SCH ×2 (16:34→23:04)
[2016-04-05] MEDS ORDERED: SODIUM ACETATE IV SCH ×10 (17:00)
[2016-04-05] MEDS ORDERED: POTASSIUM CHLORIDE IV SCH ×10 (17:00)
[2016-04-05] MEDS ORDERED: [UNRECOGNIZED DRUG - OTHER] IV SCH ×10 (17:00)
[2016-04-05] MEDS ORDERED: SODIUM PHOSPHATE IV SCH ×10 (17:00)
[2016-04-05] MEDS ORDERED: NS IV 500 ML 500 ML IV ONE (19:15)
--- NOTE | 2016-04-05 19:41 | Progress Note (SOAP) ---
Subjective Subjective/Events-last exam Fwup small bowel obstruction, acute renal failure, dehydration, COPD, Atrial fibrillation with RVR. Had exploratory lap yesterday with SARAH and small bowel resection with re-anastamosis. Postoperatively had to be re-intubated after bit through ET tube and is concern for aspiration. Also had to have his large bilateral inguinal hernias reduced post-operatively. Sedated on ventilator with worsening CXR appearance as well as elevated WBC count and worsening renal failure. Objective Exam Vital Signs Date Time Temp Pulse Resp B/P Pulse Ox O2 Delivery O2 Flow Rate FiO2 04/05/16 18:00 134 23 145/59 98 Mechanical Ventilator 40.00 04/05/16 17:00 131 31 103/49 98 Mechanical Ventilator 40.00 04/05/16 16:05 40 04/05/16 16:05 99.6 138 29 115/50 97 Mechanical Ventilator 40.00 04/05/16 15:09 99.7 141 29 118/51 100 Mechanical Ventilator 40.00 04/05/16 15:00 140 26 117/52 98 Mechanical Ventilator 40.00 04/05/16 14:37 108 24 99 40 04/05/16 14:00 126 35 116/64 98 Mechanical Ventilator 40.00 04/05/16 13:00 122 24 101/51 99 Mechanical Ventilator 40.00 04/05/16 13:00 122 04/05/16 12:11 99.3 118 19 102/56 98 Mechanical Ventilator 40.00 04/05/16 11:37 50 04/05/16 11:00 130 24 88/44 98 Mechanical Ventilator 50.00 04/05/16 10:54 74/41 04/05/16 10:47 133 24 97 40 04/05/16 10:00 117 12 152/69 98 Mechanical Ventilator 50.00 04/05/16 09:05 105 24 100 40 04/05/16 09:00 104 23 115/67 100 Mechanical Ventilator 50.00 04/05/16 08:30 50 04/05/16 08:30 98.9 101 23 126/67 100 Mechanical Ventilator 50.00 04/05/16 07:00 99 04/05/16 07:00 102 16 140/80 100 Mechanical Ventilator 50.00 04/05/16 06:53 93 123/70 04/05/16 06:46 94 24 100 50 04/05/16 06:00 99 23 110/68 100 Mechanical Ventilator 60.00 04/05/16 05:34 99.7 04/05/16 05:00 102 24 113/69 100 Mechanical Ventilator 60.00 04/05/16 04:37 102 24 100 80 04/05/16 04:00 112 24 97/64 99 Mechanical Ventilator 100.00 04/05/16 04:00 80 04/05/16 03:00 112 23 107/70 98 Mechanical Ventilator 100.00 04/05/16 02:00 114 18 140/84 97 Mechanical Ventilator 100.00 04/05/16 01:15 120 04/05/16 01:00 126 04/05/16 01:00 126 16 113/66 99 Mechanical Ventilator 100.00 04/05/16 00:30 134 8 134/67 98 Mechanical Ventilator 100.00 04/05/16 00:00 80 04/05/16 00:00 135 14 82/48 98 Mechanical Ventilator 100.00 04/04/16 23:30 141 10 94/53 91 Mechanical Ventilator 100.00 04/04/16 23:00 133 31 94/23 87 Mechanical Ventilator 100.00 04/04/16 22:45 148 33 80 04/04/16 22:30 122 36 105/68 93 Mechanical Ventilator 100.00 04/04/16 22:15 121 10 105/58 94 Mechanical Ventilator 100.00 04/04/16 22:00 124 12 121/70 Mechanical Ventilator 100.00 04/04/16 21:45 121 17 96/59 Mechanical Ventilator 100.00 04/04/16 21:30 126 10 104/53 Mechanical Ventilator 100.00 04/04/16 21:15 130 36 127/67 Mechanical Ventilator 100.00 04/04/16 21:11 129 04/04/16 21:00 126 16 107/46 Mechanical Ventilator 100.00 04/04/16 20:52 125 14 104/64 Mechanical Ventilator 100.00 04/04/16 20:40 124 37 123/34 Mechanical Ventilator 100.00 04/04/16 20:30 129 118/95 98 Mechanical Ventilator 100.00 04/04/16 20:30 100 I & O 04/05/16 07:00 Intake Total 4850 ml Output Total 4937 ml Balance -87 ml Capillary Refill : General Appearance: Other (sedated on ventilator) Respiratory: Lungs Clear Decreased Breath Sounds Cardiovascular: Systolic Murmur Gallop/S4 Irregularly Irregular Gastrointestinal: soft abnormal bowel sounds (hypoactive) distended other ( dressing dry and in place with pressure dressing to lower inguinal area for hernias) Extremity: Non Tender No Calf Tenderness No Pedal Edema Other (SCDs in place) Neurologic/Psychiatric: Other (sedated on ventilator) Skin: Pallor Results Lab Laboratory Tests 04/04/16 20:22: Aubrey Test POSITIVE, Arterial Blood Base Excess -3.4L, Arterial Blood HCO3 27, Arterial Blood Oxygen Saturation 98, Arterial Blood Partial Pressure CO2 77*H, Arterial Blood Partial Pressure O2 135H, Arterial Blood Total CO2 29.4, Arterial Blood pH 7.17*L, Blood Gas Inspired Oxygen 100%, Blood Gas Patient Temperature 99.0, Blood Gas Puncture Site LEFT RADIAL, Blood Gas Ventilator Setting YES 04/04/16 22:45: Aubrey Test ART LINE, Arterial Blood Base Excess -2.8L, Arterial Blood HCO3 28H, Arterial Blood Oxygen Saturation 94, Arterial Blood Partial Pressure CO2 79*H, Arterial Blood Partial Pressure O2 87, Arterial Blood Total CO2 29.9, Arterial Blood pH 7.16*L, Blood Gas Inspired Oxygen 80%, Blood Gas Patient Temperature 99.8, Blood Gas Puncture Site ART LINE, Blood Gas Ventilator Setting YES 04/04/16 23:25: Alanine Aminotransferase (ALT/SGPT) 8, Albumin 2.8L, Alkaline Phosphatase 51, Anion Gap 16H, Aspartate Amino Transf (AST/SGOT) 18, B-Type Natriuretic Peptide 663.0H, BUN/Creatinine Ratio 13, Band Neutrophils 41, Basophils # (Auto) 0.0, Basophils (%) (Auto) 0, Blood Morphology Comment NORMAL, Blood Urea Nitrogen 34H , Calcium Level 7.8L, Carbon Dioxide Level 21, Chloride Level 105, Creatinine 2.67H, Eosinophils # (Auto) 0.0, Eosinophils (%) (Auto) 0, Estimat Glomerular Filtration Rate 25, Glucose Level 95, Hematocrit 41, Hemoglobin 13.9, INR Comment 1.3, Lactic Acid Level 2.0, Lymphocytes # (Auto) 0.5L, Lymphocytes % ( Manual) 3, Lymphocytes (%) (Auto) 3L, Magnesium Level 1.1L, Mean Corpuscular Hemoglobin 34, Mean Corpuscular Hemoglobin Concent 34, Mean Corpuscular Volume 102H, Mean Platelet Volume 9.5, Metamyelocytes % 4, Monocytes # (Auto) 0.5, Monocytes % (Manual) 5, Monocytes (%) (Auto) 3, Neutrophils # (Auto) 15.4H, Neutrophils % (Manual) 47, Neutrophils (%) (Auto) 94H, Phosphorus Level 6.6H, Platelet Count 394, Potassium Level 3.7, Prothrombin Time 16.2H, Red Blood Count 4.05L, Red Cell Distribution Width 12.5, Sodium Level 142, Total Bilirubin 0.3, Total Protein 5.4L, Troponin I < 0.30, White Blood Count 16.4H 04/05/16 00:19: Aubrey Test ART LINE, Arterial Blood Base Excess -3.5L, Arterial Blood HCO3 24, Arterial Blood Oxygen Saturation 96, Arterial Blood Partial Pressure CO2 57H, Arterial Blood Partial Pressure O2 99H, Arterial Blood Total CO2 25.7, Arterial Blood pH 7.25*L, Blood Gas Inspired Oxygen 80%, Blood Gas Patient Temperature 100.9, Blood Gas Puncture Site ART LINE, Blood Gas Ventilator Setting YES, Hematocrit 40, Hemoglobin 13.5 04/05/16 03:46: Alanine Aminotransferase (ALT/SGPT) 8, Albumin 2.5L, Alkaline Phosphatase 42, Aubrey Test A-LINE, Anion Gap 16H, Arterial Blood Base Excess -2.8L, Arterial Blood HCO3 23, Arterial Blood Oxygen Saturation 99, Arterial Blood Partial Pressure CO2 47H, Arterial Blood Partial Pressure O2 184H, Arterial Blood Total CO2 24.5, Arterial Blood pH 7.32*L, Aspartate Amino Transf (AST/SGOT) 20, BUN/ Creatinine Ratio 13, Basophils # (Auto) 0.0, Basophils (%) (Auto) 0, Blood Gas Inspired Oxygen 80%, Blood Gas Patient Temperature 100.7, Blood Gas Puncture Site A-LINE, Blood Gas Ventilator Setting YES, Blood Urea Nitrogen 35H, Calcium Level 7.8L, Carbon Dioxide Level 20L, Chloride Level 105, Creatinine 2.68H, Eosinophils # (Auto) 0.0, Eosinophils (%) (Auto) 0, Estimat Glomerular Filtration Rate 25, Glucose Level 144H, Hematocrit 39L, Hemoglobin 12.7L, INR Comment 1.5H, Lymphocytes # (Auto) 0.5L, Lymphocytes (%) (Auto) 2L, Magnesium Level 1.0*L, Mean Corpuscular Hemoglobin 33, Mean Corpuscular Hemoglobin Concent 32, Mean Corpuscular Volume 102H, Mean Platelet Volume 9.7, Monocytes # (Auto) 0.8, Monocytes (%) (Auto) 3, Neutrophils # (Auto) 23.9H, Neutrophils (%) (Auto) 95H, Phosphorus Level 3.8, Platelet Count 391, Potassium Level 3.4L, Prealbumin 5.0L, Prothrombin Time 17.5H, Red Blood Count 3.84L, Red Cell Distribution Width 12.4, Sodium Level 141, Total Bilirubin 0.4, Total Protein 4.9L, Triglycerides Level 74, White Blood Count 25.2H 04/05/16 12:50: Vancomycin Level Trough 16.2 Microbiology 04/04/16 Gram Stain - Final, Resulted 04/04/16 Sputum Culture - Preliminary, Resulted Gram Negative Sg 03/29/16 Urine Culture - Final, Complete Assessment/Plan Assessment/Plan Assess & Plan/Chief Complaint 1. Small Bowel Obstruction--exploratory lap by Dr. Stephens yesterday with SARAH and small bowel resection with re-anastamosis and post-op complications of aspiration pneumonia and bilateral inguinal hernias having to be reduced 2. Acute Renal Failure/Dehydration--worsened since surgery 3. Acute Respiratory Failure with Post-op Aspiration--WBC count increased, on Zosyn and Vanc and sedated on ventilator--Dr. Mcdaniel managing 4. Hypomagnesemia--on magnesium replacement protocol 5. Atrial Fibrillation with RVR--back in NSR but tachycardic so continue on IV lopressor Diagnosis/Problems: Clinical Quality Measures DVT/VTE Risk/Contraindication: Risk Factor Score Per Nursin RFS Level Per Nursing on Admit: 4+=Very High AIME CANO DO Apr 05, 2016 19:41
[2016-04-05] MEDS ORDERED: ALBUMIN IV ONE (23:19)
[2016-04-05 23:46] LABS: ABG BASE EXCESS -0.9 MMOL/L (-2.5-2.5); ABG HCO3 26 MMOL/L (23-27); ABG OXYGEN SATURATION 97 % (94-100); ABG PCO2 51 MMHG (35-45); ABG PO2 95 MMHG (79-93); ABG TCO2 27.1 MMOL/L (21.0-31.0)
[2016-04-05 23:51] LABS: ABG PH 7.32 (7.37-7.43); ALLENS TEST ART LINE; PATIENT TEMP 99.1
[2016-04-05 23:57] LABS: MAGNESIUM 2.1 MG/DL (1.8-2.4); POTASSIUM 3.5 MMOL/L (3.6-5.0)
[2016-04-06] VITALS (24 sets, daily range): BP systolic 86–146; BP diastolic 47–69
[2016-04-06] MEDS: VASOPRESSIN INJECTION 20 UNIT in NS (IVPB) 50 ML IV SCH ×2 (00:09→11:00)
[2016-04-06] MEDS: NOREPINEPHRINE 4 MG in D5W 250 ML IV SCH ×2 (00:09→04:13)
[2016-04-06 00:17] LABS: TROPONIN I 0.5 NG/ML (<0.30)
[2016-04-06] MEDS: fentaNYL INJECTION 100 MCG/2 ML AMP IV PRN ×2 (00:26→04:19)
[2016-04-06 00:49] LABS: CALCIUM IONIZED 1.07 mmol/L (1.16-1.32); CORRECTED IONIZED CALCIUM 1.05 mmol/L (1.16-1.32)
[2016-04-06] MEDS: POTASSIUM CL 10MEQ/50ML IVPB 50 ML IV SCH ×9 (01:12→15:09)
[2016-04-06] MEDS: RT-ALBUTEROL/IPRATROPIUM 3 ML (DUONEB) VIAL INH SCH ×6 (02:22→22:30)
[2016-04-06] MEDS ORDERED: TROUGH ORDER-PHARMACY XX NR (05:00)
[2016-04-06 05:13] LABS: BASOPHILS % (AUTO) 0 % (0-10); EOSINOPHILS % (AUTO) 0 % (0-10); LYMPHOCYTES # (AUTO) 0.5 X 10^3 (1.0-4.0); LYMPHOCYTES % (AUTO) 2 % (12-44); MEAN CORPUSCULAR HEMOGLOBIN 33 PG (25-34); MEAN CORPUSCULAR HGB CONC 33 G/DL (32-36); MEAN CORPUSCULAR VOLUME 100 FL (80-99); MONOCYTES # (AUTO) 0.9 X 10^3 (0.0-1.0); MONOCYTES % (AUTO) 3 % (0-12); NEUTROPHILS % (AUTO) 95 % (42-75); PLATELET COUNT 285 10^3/uL (130-400); RED BLOOD COUNT 3.09 10^6/uL (4.35-5.85); RED CELL DISTRIBUTION WIDTH 12.2 % (10.0-14.5); WHITE BLOOD COUNT 26.3 10^3/uL (4.3-11.0)
[2016-04-06 05:14] LABS: ABG BASE EXCESS 0.3 MMOL/L (-2.5-2.5); ABG HCO3 25 MMOL/L (23-27); ABG OXYGEN SATURATION 98 % (94-100); ABG PCO2 41 MMHG (35-45); ABG PO2 99 MMHG (79-93); ABG TCO2 26.3 MMOL/L (21.0-31.0); ALLENS TEST ART LINE; PATIENT TEMP 99.1
[2016-04-06 05:30] LABS: CALCIUM 7.8 MG/DL (8.5-10.1); CREATININE SERUM 2.95 MG/DL (0.60-1.30); MAGNESIUM 2.1 MG/DL (1.8-2.4); PHOSPHORUS 1.9 MG/DL (2.3-4.7); POTASSIUM 3.5 MMOL/L (3.6-5.0)
[2016-04-06] MEDS: MAGNESIUM 1 GM/100 ML IVPB 100 ML IV SCH (05:57)
[2016-04-06] MEDS: meTOprolol 5 MG/5 ML (LOPRESSOR) VIAL IV SCH ×3 (05:58→17:18)
[2016-04-06] MEDS: KCL 20 MEQ TAB (K-DUR) PO SCH (05:58)
[2016-04-06] MEDS: inSUlin (REGULAR) HUMAN 1 UNIT/0.01 ML (CHARGE PER UNIT) SC SCH ×3 (06:07→16:00)
[2016-04-06] MEDS: HYDROCORTISONE 100 MG/2 ML (Solu-CORTEF) VIAL IV SCH ×3 (06:07→22:22)
[2016-04-06] MEDS ORDERED: DEXMEDETOMIDINE PRE-MIX 100 ML IV ONE (06:16)
--- NOTE | 2016-04-06 06:24 | Pulmonary Progress Note ---
Subjective Subjective/Events-last exam PT is doing better today. Exam Exam Vital Signs Date Time Temp Pulse Resp B/P Pulse Ox O2 Delivery O2 Flow Rate FiO2 04/06/16 06:00 102 29 129/61 100 Mechanical Ventilator 40.00 04/06/16 05:00 105 25 130/59 100 Mechanical Ventilator 40.00 04/06/16 04:00 40 04/06/16 04:00 104 25 139/64 100 Mechanical Ventilator 40.00 04/06/16 03:54 98.6 Mechanical Ventilator 40.00 04/06/16 03:00 107 26 121/57 100 Mechanical Ventilator 40.00 04/06/16 02:22 103 26 100 40 04/06/16 02:00 97 25 132/56 100 Mechanical Ventilator 40.00 04/06/16 01:05 40 04/06/16 01:00 103 04/06/16 01:00 103 26 116/47 100 Mechanical Ventilator 40.00 04/06/16 00:20 109 29 100 40 04/06/16 00:00 120 23 127/54 100 Mechanical Ventilator 40.00 04/06/16 00:00 97.8 04/06/16 00:00 40 04/05/16 23:00 121 35 122/56 100 Mechanical Ventilator 40.00 04/05/16 22:01 129 25 100 40 04/05/16 22:01 129 25 100 40 04/05/16 22:00 129 23 103/51 100 Mechanical Ventilator 40.00 04/05/16 21:00 138 28 118/57 98 Mechanical Ventilator 40.00 04/05/16 20:50 140 27 99 40 04/05/16 20:00 40 04/05/16 20:00 100.8 Mechanical Ventilator 40.00 04/05/16 20:00 128 19 118/49 98 Mechanical Ventilator 40.00 04/05/16 19:00 135 04/05/16 19:00 135 24 77/42 99 Mechanical Ventilator 40.00 04/05/16 18:23 134 26 99 40 04/05/16 18:00 134 23 145/59 98 Mechanical Ventilator 40.00 04/05/16 17:00 131 31 103/49 98 Mechanical Ventilator 40.00 04/05/16 16:05 40 04/05/16 16:05 99.6 138 29 115/50 97 Mechanical Ventilator 40.00 04/05/16 15:09 99.7 141 29 118/51 100 Mechanical Ventilator 40.00 04/05/16 15:00 140 26 117/52 98 Mechanical Ventilator 40.00 04/05/16 14:37 108 24 99 40 04/05/16 14:00 126 35 116/64 98 Mechanical Ventilator 40.00 04/05/16 13:00 122 24 101/51 99 Mechanical Ventilator 40.00 04/05/16 13:00 122 04/05/16 12:11 99.3 118 19 102/56 98 Mechanical Ventilator 40.00 04/05/16 11:37 50 04/05/16 11:00 130 24 88/44 98 Mechanical Ventilator 50.00 04/05/16 10:54 74/41 04/05/16 10:47 133 24 97 40 04/05/16 10:00 117 12 152/69 98 Mechanical Ventilator 50.00 04/05/16 09:05 105 24 100 40 04/05/16 09:00 104 23 115/67 100 Mechanical Ventilator 50.00 04/05/16 08:30 50 04/05/16 08:30 98.9 101 23 126/67 100 Mechanical Ventilator 50.00 04/05/16 07:00 99 04/05/16 07:00 102 16 140/80 100 Mechanical Ventilator 50.00 04/05/16 06:53 93 123/70 04/05/16 06:46 94 24 100 50 I & O 04/06/16 07:00 Intake Total 3812 ml Output Total 1700 ml Balance 2112 ml General Appearance: Other (sedated on ventilator) HEENT: PERRL/EOMI Neck: Full Range of Motion Respiratory: Lungs Clear Decreased Breath Sounds Cardiovascular: Systolic Murmur Gallop/S4 Irregularly Irregular Gastrointestinal: soft abnormal bowel sounds (hypoactive) distended other ( dressing dry and in place with pressure dressing to lower inguinal area for hernias) Extremity: Non Tender No Calf Tenderness No Pedal Edema Other (SCDs in place) Neurologic/Psychiatric: Other (sedated on ventilator) Skin: Pallor Lymphatic: No Adenopathy Results Lab Laboratory Tests 04/04/16 23:25 04/05/16 00:19 04/05/16 03:46 04/05/16 23:35 04/06/16 05:00 Assessment/Plan Assessment/Plan Acute respiratory failure requiring ventilator secondary to aspiration -zosyn and vancomycin -wean ventilator therapy -wean oxygen aggressively -D/C diprivan Hypotension - Off vasopressin and wean levophed Small bowel obstruction s/p ex lap Inguinal hernia bilateral -Hernia's were reduced last night Acute renal failure/dehydration -IVF Arterial Fibrillation with RVR Clinical Quality Measures DVT/VTE Risk/Contraindication: Risk Factor Score Per Nursin RFS Level Per Nursing on Admit: 4+=Very High GRETCHEN OLSEN DO Apr 06, 2016 06:24
[2016-04-06 06:55] LABS: CALCIUM PH 7.36
[2016-04-06] MEDS ORDERED: SODIUM PHOSPHATE INJ 30 MM in NS (IVPB) 250 ML IV NR (06:58)
[2016-04-06] MEDS: RT-BUDESONIDE NEBS 0.5 MG/2ML (PULMICORT) AMP INH SCH ×2 (06:59→22:30)
[2016-04-06] MEDS: NICOTINE 21 MG (NICODERM) PATCH TD SCH (07:56)
[2016-04-06] MEDS: PIPERACILLIN SODIUM/TAZOBACTAM 4.5 GM in NS (IVPB) 100 ML IV SCH ×2 (07:56→15:09)
[2016-04-06] MEDS: BISACODYL 10 MG SUPP (DULCOLAX) PR SCH ×2 (07:57→20:04)
[2016-04-06] MEDS: PANTOPRAZOLE 40 MG/10 ML (PROTONIX) VIAL IV SCH ×2 (07:57→20:03)
[2016-04-06] MEDS: NICOTINE PATCH REMOVAL TP SCH (07:58)
[2016-04-06] MEDS ORDERED: VANCOMYCIN 1 GM/NS 250 ML IVPB IV SCH ×2 (08:00)
--- NOTE | 2016-04-06 08:02 | Diagnostic Imaging Report ---
INDICATION: Dyspnea. Comparison with 04/05/2016. FINDINGS: There has been continued improvement in the left lung with only minimal residual infiltrate. There continues to be hyperaeration with blunting of left costophrenic angle. Infiltrate in the right lung remains present with little change. Heart has decreased in size. No evidence of pulmonary edema. ET tube and NG tube remain in good position. IMPRESSION: 1. Continued improvement on the left with minimal residual infiltrate. 2. Persistent dense consolidated infiltrate in the right. Dictated by: Dictated on workstation # [id number]
[2016-04-06 09:02] LABS: ABG BASE EXCESS 0.5 MMOL/L (-2.5-2.5); ABG HCO3 26 MMOL/L (23-27); ABG OXYGEN SATURATION 95 % (94-100); ABG PCO2 44 MMHG (35-45); ABG PH 7.39 (7.37-7.43); ABG PO2 70 MMHG (79-93); ABG TCO2 27.3 MMOL/L (21.0-31.0)
[2016-04-06 09:05] LABS: ALLENS TEST POSITIVE; PATIENT TEMP 97.2
[2016-04-06] MEDS ORDERED: NS IV 1000 ML 1,000 ML ONE (09:12)
--- NOTE | 2016-04-06 09:52 | Cardiology Progress Note ---
Subjective Subjective/Events-last exam patient is laying down in bed, awake, still intubated, planning to proceed with extubation today. Feeling better Review of Systems General: Other (unable to provide review of systems due to her current condition) Objective-Cardiology Exam Last Set of Vital Signs Vital Signs 04/06/16 04/06/16 04/06/16 03:54 06:00 07:43 Temp 98.6 Pulse 112 Resp 28 B/P 129/61 Pulse Ox 97 O2 Delivery Mechanical Ventilator O2 Flow Rate 40.00 FiO2 40 Capillary Refill : I&O Intake and Output 04/06/16 00:00 Intake Total 2952 ml Output Total 2650 ml Balance 302 ml Intake Oral 0 ml IV Total 2952 ml Output Urine Total 1950 ml Gastric Drainage Total 700 ml General: Alert, Moderate Distress HEENT: Atraumatic Neck: Supple, No JVD, No Thyromegaly Lungs: Normal Air Movement, Other (bilateral rhonchi) Heart: Normal S1, Normal S2, No Murmurs, Other (tachycardic) Abdomen: No Masses, Other (absent bowel sounds) Extremities: No Clubbing, No Cyanosis, No Edema, Normal Pulses, No Tenderness/ Swelling Skin: No Rashes, No Breakdown, No Significant Lesion Neuro: Other (sedated and intubated) Psych/Mental Status: Other (sedated and intubated) Results Lab Laboratory Tests 04/05/16 23:35 04/06/16 05:00 04/06/16 08:22 A/P-Cardiology Admission Diagnosis Afib with RVR CAD HTN SBO Assessment/Plan Acute respiratory failure, intubated, planning for extubation today, followed by Dr. Mcdaniel. Hypotensive shock, off pressors at this time, blood pressure is better. Being extubated. Continue to monitor with supportive care. Small bowel obstruction, status post exploratory laparotomy, postoperative day number 2, being extubated today. Acute on chronic renal failure, worsening renal function, receiving IV fluid. Continue to monitor Paroxysmal atrial fibrillation, back to sinus rhythm, in sinus tachycardia, restart IV Lopressor if tolerated, monitor closely. [id number] score of 5, yearly risk of stroke without OAC is 6.7%. restart Lovenox when tolerated. 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 Galaviz CAD- history of CABG x 1 last year, done at [facility]. I will try to obtain copy for our records. Clinically stable, continue to monitor. SHAYNA- history of bilat CEA in the past by Dr. Spencer. Continue to monitor as outpatient. Hx of CVA COPD History of pulmonary hypertension. Continue to monitor Tobaccoism Clinical Quality Measures DVT/VTE Risk/Contraindication: Risk Factor Score Per Nursin RFS Level Per Nursing on Admit: 4+=Very High PAYTON BUTCHER MD Apr 06, 2016 09:52
--- NOTE | 2016-04-06 10:29 | OPERATIVE REPORT ---
PROCEDURE PHYSICIAN: BRITTANY STEPHENS DATE OF ADMISSION: 03/28/2016 DATE OF PROCEDURE: 04/04/2016 ATTENDING PRIMARY CARE PHYSICIAN: Dr. Mary Jane Sanchez PREOPERATIVE DIAGNOSES: Complete small bowel obstruction POSTOPERATIVE DIAGNOSIS: Complete small bowel obstruction at the level of the jejunum, secondary to adhesions and internal herniation. PROCEDURE: 1. Placement left subclavian central venous catheter. 2. Diagnostic laparoscopy. 3. Laparoscopic lysis of adhesions, which took approximately 120 minutes. 4. Small bowel resection and anastomosis. SURGEON: Dr. Stephens FACING CUTTING MACHINE OPERATOR: Brendan Ferguson APRN. ANESTHESIA: General endotracheal. ESTIMATED BLOOD LOSS: Minimal. FINDINGS: Dense small bowel adhesions secondary to previous laparotomy for peptic ulcer disease with internal herniation. After dissection of adhesions there was an area of ischemic bowel, and this was resected. There was also bilateral inguinal hernias which were left alone. DISPOSITION: The patient tolerated the procedure well. Mr. Raymond Petersen is a 52-year-old male known to us. We had seen him in the past for Groshong implantable catheter placement for frequent IV draws as well as hypomagnesemia. This gentleman has been hypomagnesemic for some time requiring twice-weekly IV magnesium infusion. This gentleman has known bilateral inguinal hernias which are reducible. He was admitted on 03/28/2016 for electrolyte abnormalities as well as hypomagnesemia and again chronic renal insufficiency with elevation of BUN and creatinine. He also had fluid retention and COPD. He had decompression, as well as IV fluids and he did well and was able to have bowel function and started on clear liquids. Unfortunately, he did develop abdominal distention and nausea and vomiting and the NG tube was placed again. We then continued with medical management as well as a Gastrografin small bowel follow-through, which again did show signs consistent with an upper small bowel obstruction. We again proceeded with the conservative management with bowel rest and NG tube decompression and he was able to do better and have bowel movements and the NG tube was removed; however, he again developed abdominal distention and nausea and vomiting. The risks and benefits of surgery were explained in depth to the patient and he was in full understanding and wanted to proceed with surgery. PROCEDURE: The patient was brought to the operating room, laid supine on the table. After adequate IV pain and sedative medications and general endotracheal intubation, the chest and neck were prepped and draped in the standard surgical fashion. The left subclavian vein was then cannulated withdrawing of venous blood. The guidewire was then inserted without any resistance. The cannulating needle removed and a small incision made using an 11 blade. A tract was then created using a venous dilator. The triple lumen central venous catheter was then placed over the guidewire using the Seldinger technique. Guidewire removed and all 3 ports heather venous blood and flushed pushing without any resistance. The catheter was then sutured to the skin using 3-0 silk suture covered with sterile gauze, followed by large OpSite. The abdomen was then prepped and draped in standard surgical fashion. 0.5% Marcaine with epinephrine was used to anesthetize the overlying skin in the left upper abdominal quadrant. A small transverse incision made using a 15 blade. An 0 silk suture was applied to the medial aspect of the incision for retraction and a Veress needle inserted with a low opening pressure of 0 mmHg. The abdomen was then insufflated to 15 mmHg pressure. The Veress needle removed and a 5 mm Xcel trocar placed followed by a 5 mm, 45 degrees angle laparoscope, visualizing the peritoneal cavity. We then proceeded to place two left 5 mm ports under direct visualization. There was a significant amount of greater omental adhesions towards the anterior abdominal wall, which were initially taken down using the Sonicision. The small bowel was also adherent to the anterior abdominal wall, which were taken down carefully using Endo Chitra, as well as Sonicision. The omentum was completely dissected off of the small bowel and tucked cephalad. We then proceeded to identify dilated loops of small bowel. We followed the dilated segment of small bowel until we reached the ligament of Treitz. We then proceeded distally until an area of the adhesive tissue encompassing the midportion of the small bowel was identified. An internal herniation was also identified. There were no ischemic changes or no signs of infection. The adhesions were taken down as well as possible using a Sonicision as well as Endo Chitra. This process, took approximately 120 minutes. We then proceeded to follow the entire small bowel including the contracted segment until the terminal ileum was identified. Bilateral inguinal hernias were identified which were easily reducible with nothing within the hernia sac and left alone. Good hemostasis was observed. An area of the dissected segment of small bowel appeared ischemic after dissection even after extended observation. It was decided to resect this segment of small bowel. A small transverse skin incision was then made just above the umbilicus using an 11 blade. The fascia and peritoneum were then opened under direct visualization using electrocautery. An area of bowel that was dusky, as well as area of lysis of adhesions, we then decided to resect this segment, which was approximately 25 cm in length. A window was then created between the antimesenteric border of the mesentery using electrocautery. The proximal distal ends of the small bowel were then stapled and transected using a KELLY 55 stapler with a 2.5 mm thickness load. The mesentery was then clamp proximally and distally in series and cut with Metzenbaum scissors and tied with 0 silk sutures with visualization of good hemostasis. We then proceeded with efzb-cn-vuxe anastomosis using the same KELLY 55 mm stapler with a 2.5 mm thickness reload. The open end was then reapproximated using 3-0 silk sutures and closed with a KELLY 55 stapler. The distal end of the staple line was buttressed with 3-0 silk interrupted sutures. The mesentery was then closed using a running 3-0 Vicryl suture. Good hemostasis was observed. The small bowel was then placed back into the peritoneal cavity. The fascia was then closed using 0 Prolene running suture. The remaining ports were removed and all skin the skin incisions were closed using a skin bao. The patient tolerated the procedure well. We will admit him to the ICU and continue with bowel rest with NG tube decompression as well as start TPN. We will proceed with DVT prophylaxis with calf SCDs, early ambulation, as well as Lovenox. He will also be restarted back on Lovenox for atrial fibrillation. We will also continue to consult medical as well as cardiology. Job ID: [id number] Dictated Date: 04/04/2016 19:33:34 Bible Worker Date: 04/06/2016 10:10:38 / moises PATEL
--- NOTE | 2016-04-06 11:42 | Progress Note (SOAP) ---
Subjective Subjective/Events-last exam extubated this am and doing ok so far. awake and alert however slightly confused. abdomen soft. incisions clean/dry. Objective Exam Vital Signs Date Time Temp Pulse Resp B/P Pulse Ox O2 Delivery O2 Flow Rate FiO2 04/06/16 10:52 100 6.00 04/06/16 07:43 112 28 97 40 04/06/16 07:00 103 04/06/16 06:59 104 26 98 40 04/06/16 06:33 105 04/06/16 06:00 102 29 129/61 100 Mechanical Ventilator 40.00 04/06/16 05:00 105 25 130/59 100 Mechanical Ventilator 40.00 04/06/16 04:00 40 04/06/16 04:00 104 25 139/64 100 Mechanical Ventilator 40.00 04/06/16 03:54 98.6 Mechanical Ventilator 40.00 04/06/16 03:00 107 26 121/57 100 Mechanical Ventilator 40.00 04/06/16 02:22 103 26 100 40 04/06/16 02:00 97 25 132/56 100 Mechanical Ventilator 40.00 04/06/16 01:05 40 04/06/16 01:00 103 04/06/16 01:00 103 26 116/47 100 Mechanical Ventilator 40.00 04/06/16 00:20 109 29 100 40 04/06/16 00:00 120 23 127/54 100 Mechanical Ventilator 40.00 04/06/16 00:00 97.8 04/06/16 00:00 40 04/05/16 23:00 121 35 122/56 100 Mechanical Ventilator 40.00 04/05/16 22:01 129 25 100 40 04/05/16 22:01 129 25 100 40 04/05/16 22:00 129 23 103/51 100 Mechanical Ventilator 40.00 04/05/16 21:00 138 28 118/57 98 Mechanical Ventilator 40.00 04/05/16 20:50 140 27 99 40 04/05/16 20:00 40 04/05/16 20:00 100.8 Mechanical Ventilator 40.00 04/05/16 20:00 128 19 118/49 98 Mechanical Ventilator 40.00 04/05/16 19:00 135 04/05/16 19:00 135 24 77/42 99 Mechanical Ventilator 40.00 04/05/16 18:23 134 26 99 40 04/05/16 18:00 134 23 145/59 98 Mechanical Ventilator 40.00 04/05/16 17:00 131 31 103/49 98 Mechanical Ventilator 40.00 04/05/16 16:05 40 04/05/16 16:05 99.6 138 29 115/50 97 Mechanical Ventilator 40.00 04/05/16 15:09 99.7 141 29 118/51 100 Mechanical Ventilator 40.00 04/05/16 15:00 140 26 117/52 98 Mechanical Ventilator 40.00 04/05/16 14:37 108 24 99 40 04/05/16 14:00 126 35 116/64 98 Mechanical Ventilator 40.00 04/05/16 13:00 122 24 101/51 99 Mechanical Ventilator 40.00 04/05/16 13:00 122 04/05/16 12:11 99.3 118 19 102/56 98 Mechanical Ventilator 40.00 I & O 04/06/16 07:00 Intake Total 3862 ml Output Total 1700 ml Balance 2162 ml Capillary Refill : General Appearance: No Apparent Distress HEENT: PERRL/EOMI Neck: Full Range of Motion Respiratory: Crackles Decreased Breath Sounds Rhonci Cardiovascular: Regular Rate, Rhythm Gastrointestinal: soft tenderness other (wounds clean/dry) Extremity: Normal Capillary Refill Neurologic/Psychiatric: Alert Oriented x3 Skin: Normal Color Lymphatic: No Adenopathy Results Lab Laboratory Tests 04/05/16 12:50: Vancomycin Level Trough 16.2 04/05/16 23:35: Aubrey Test ART LINE, Arterial Blood Base Excess -0.9, Arterial Blood HCO3 26, Arterial Blood Oxygen Saturation 97, Arterial Blood Partial Pressure CO2 51H, Arterial Blood Partial Pressure O2 95H, Arterial Blood Total CO2 27.1, Arterial Blood pH 7.32*L, Blood Gas Inspired Oxygen 40%, Blood Gas Patient Temperature 99.1, Blood Gas Puncture Site ART LINE, Blood Gas Ventilator Setting YES, Hemoglobin 11.6L, Lactic Acid Level 1.9, Magnesium Level 2.1, Potassium Level 3.5L, Troponin I 0.50*H 04/06/16 05:00: Vancomycin Level Trough 10.5, Aubrey Test ART LINE, Arterial Blood Base Excess 0.3, Arterial Blood HCO3 25, Arterial Blood Oxygen Saturation 98, Arterial Blood Partial Pressure CO2 41, Arterial Blood Partial Pressure O2 99H, Arterial Blood Total CO2 26.3, Arterial Blood pH 7.40, Blood Gas Inspired Oxygen 40%, Blood Gas Patient Temperature 99.1, Blood Gas Puncture Site ART LINE, Blood Gas Ventilator Setting YES, Hemoglobin 10.1L, Magnesium Level 2.1, Potassium Level 3.5L, Anion Gap 12, BUN/Creatinine Ratio 14, Basophils # (Auto) 0.0, Basophils ( %) (Auto) 0, Blood Urea Nitrogen 42H, Calcium Level 7.8L, Carbon Dioxide Level 23, Chloride Level 102, Creatinine 2.95H, Eosinophils # (Auto) 0.0, Eosinophils (%) (Auto) 0, Estimat Glomerular Filtration Rate 22, Glucose Level 281H, Hematocrit 31L, Lymphocytes # (Auto) 0.5L, Lymphocytes (%) (Auto) 2L, Mean Corpuscular Hemoglobin 33, Mean Corpuscular Hemoglobin Concent 33, Mean Corpuscular Volume 100H, Mean Platelet Volume 10.0, Monocytes # (Auto) 0.9, Monocytes (%) (Auto) 3, Neutrophils # (Auto) 25.0H, Neutrophils (%) (Auto) 95H, Phosphorus Level 1.9L, Platelet Count 285, Red Blood Count 3.09L, Red Cell Distribution Width 12.2, Sodium Level 137, White Blood Count 26.3H 04/06/16 05:02: B-Type Natriuretic Peptide 540.2H 04/06/16 05:51: Troponin I 0.44*H 04/06/16 08:22: Potassium Level 3.2L 04/06/16 08:58: Aubrey Test POSITIVE, Arterial Blood Base Excess 0.5, Arterial Blood HCO3 26, Arterial Blood Oxygen Saturation 95, Arterial Blood Partial Pressure CO2 44, Arterial Blood Partial Pressure O2 70L, Arterial Blood Total CO2 27.3, Arterial Blood pH 7.39, Blood Gas Inspired Oxygen 30%, Blood Gas Patient Temperature 97.2 , Blood Gas Puncture Site RIGHT BRACHIAL, Blood Gas Ventilator Setting YES Microbiology 04/04/16 Gram Stain - Final, Complete 04/04/16 Sputum Culture - Final, Complete Klebsiella Oxytoca 03/29/16 Urine Culture - Final, Complete Assessment/Plan Assessment/Plan Assess & Plan/Chief Complaint SBO s/p laparoscopic lysis of adhesions and small bowel resection. underlying cardiopulmonary disease and renal failure. recently extubated and doing well so far. continue supportive care for now and await definititve bowel function. will continue NGT and TPN for now. continue abx for suspected pneumonia. Diagnosis/Problems: Clinical Quality Measures DVT/VTE Risk/Contraindication: Risk Factor Score Per Nursin RFS Level Per Nursing on Admit: 4+=Very High BRITTANY CHAPA MD Apr 06, 2016 11:42 am
[2016-04-06] MEDS: fentaNYL INJECTION 100 MCG/2 ML AMP IVP PRN ×2 (16:29→20:04)
[2016-04-06] MEDS ORDERED: LACTATED RINGERS 1,000 ML IV SCH (17:00)
[2016-04-06] MEDS: SODIUM PHOSPHATE IV SCH ×10 (17:17)
[2016-04-06] MEDS: SODIUM ACETATE IV SCH ×10 (17:17)
[2016-04-06] MEDS: [UNRECOGNIZED DRUG - OTHER] IV SCH ×10 (17:17)
[2016-04-06] MEDS: POTASSIUM CHLORIDE IV SCH ×10 (17:17)
--- NOTE | 2016-04-06 17:41 | Progress Note (SOAP) ---
Subjective Subjective/Events-last exam Fwup small bowel obstruction--S/P exploratory lab with small bowel resection and reanastamosis, acute renal failure--worsened since surgery, dehydration, COPD, Atrial fibrillation with RVR, Post-op VDRF with aspiration pneumonia. Still on ventilator but is opening eyes and FiO2 down to 30%. Objective Exam Vital Signs Date Time Temp Pulse Resp B/P Pulse Ox O2 Delivery O2 Flow Rate FiO2 04/06/16 16:00 2.00 04/06/16 16:00 98.1 105 26 103/56 95 Nasal Cannula 2.00 04/06/16 14:16 100 3.00 04/06/16 13:00 101 04/06/16 12:00 98.1 111 29 109/64 99 Nasal Cannula 30.00 3.00 04/06/16 12:00 30 04/06/16 10:52 100 6.00 04/06/16 08:00 97.6 115 29 135/55 97 Mechanical Ventilator 30.00 04/06/16 08:00 30 04/06/16 07:43 112 28 97 40 04/06/16 07:00 103 04/06/16 06:59 104 26 98 40 04/06/16 06:33 105 04/06/16 06:00 102 29 129/61 100 Mechanical Ventilator 40.00 04/06/16 05:00 105 25 130/59 100 Mechanical Ventilator 40.00 04/06/16 04:00 40 04/06/16 04:00 104 25 139/64 100 Mechanical Ventilator 40.00 04/06/16 03:54 98.6 Mechanical Ventilator 40.00 04/06/16 03:00 107 26 121/57 100 Mechanical Ventilator 40.00 04/06/16 02:22 103 26 100 40 04/06/16 02:00 97 25 132/56 100 Mechanical Ventilator 40.00 04/06/16 01:05 40 04/06/16 01:00 103 04/06/16 01:00 103 26 116/47 100 Mechanical Ventilator 40.00 04/06/16 00:20 109 29 100 40 04/06/16 00:00 120 23 127/54 100 Mechanical Ventilator 40.00 04/06/16 00:00 97.8 04/06/16 00:00 40 04/05/16 23:00 121 35 122/56 100 Mechanical Ventilator 40.00 04/05/16 22:01 129 25 100 40 04/05/16 22:01 129 25 100 40 04/05/16 22:00 129 23 103/51 100 Mechanical Ventilator 40.00 04/05/16 21:00 138 28 118/57 98 Mechanical Ventilator 40.00 04/05/16 20:50 140 27 99 40 04/05/16 20:00 40 04/05/16 20:00 100.8 Mechanical Ventilator 40.00 04/05/16 20:00 128 19 118/49 98 Mechanical Ventilator 40.00 04/05/16 19:00 135 04/05/16 19:00 135 24 77/42 99 Mechanical Ventilator 40.00 04/05/16 18:23 134 26 99 40 04/05/16 18:00 134 23 145/59 98 Mechanical Ventilator 40.00 I & O 04/06/16 07:00 Intake Total 3862 ml Output Total 1700 ml Balance 2162 ml Capillary Refill : General Appearance: No Apparent Distress Neck: Supple Respiratory: Lungs Clear Decreased Breath Sounds Cardiovascular: Systolic Murmur Tachycardia Gastrointestinal: non tender soft abnormal bowel sounds (hypoactive) other ( dry dressings in place) Extremity: No Pedal Edema Other (SCDs in place) Neurologic/Psychiatric: Other (sedated on vent but will open eyes to name) Skin: Pallor Results Lab Laboratory Tests 04/05/16 23:35: Aubrey Test ART LINE, Arterial Blood Base Excess -0.9, Arterial Blood HCO3 26, Arterial Blood Oxygen Saturation 97, Arterial Blood Partial Pressure CO2 51H, Arterial Blood Partial Pressure O2 95H, Arterial Blood Total CO2 27.1, Arterial Blood pH 7.32*L, Blood Gas Inspired Oxygen 40%, Blood Gas Patient Temperature 99.1, Blood Gas Puncture Site ART LINE, Blood Gas Ventilator Setting YES, Hemoglobin 11.6L, Lactic Acid Level 1.9, Magnesium Level 2.1, Potassium Level 3.5L, Troponin I 0.50*H 04/06/16 05:00: Aubrey Test ART LINE, Arterial Blood Base Excess 0.3, Arterial Blood HCO3 25, Arterial Blood Oxygen Saturation 98, Arterial Blood Partial Pressure CO2 41, Arterial Blood Partial Pressure O2 99H, Arterial Blood Total CO2 26.3, Arterial Blood pH 7.40, Blood Gas Inspired Oxygen 40%, Blood Gas Patient Temperature 99.1 , Blood Gas Puncture Site ART LINE, Blood Gas Ventilator Setting YES, Hemoglobin 10.1L, Magnesium Level 2.1, Potassium Level 3.5L, Anion Gap 12, BUN/ Creatinine Ratio 14, Basophils # (Auto) 0.0, Basophils (%) (Auto) 0, Blood Urea Nitrogen 42H, Calcium Level 7.8L, Carbon Dioxide Level 23, Chloride Level 102, Creatinine 2.95H, Eosinophils # (Auto) 0.0, Eosinophils (%) (Auto) 0, Estimat Glomerular Filtration Rate 22, Glucose Level 281H, Hematocrit 31L, Lymphocytes # (Auto) 0.5L, Lymphocytes (%) (Auto) 2L, Mean Corpuscular Hemoglobin 33, Mean Corpuscular Hemoglobin Concent 33, Mean Corpuscular Volume 100H, Mean Platelet Volume 10.0, Monocytes # (Auto) 0.9, Monocytes (%) (Auto) 3, Neutrophils # (Auto ) 25.0H, Neutrophils (%) (Auto) 95H, Phosphorus Level 1.9L, Platelet Count 285, Red Blood Count 3.09L, Red Cell Distribution Width 12.2, Sodium Level 137, Vancomycin Level Trough 10.5, White Blood Count 26.3H 04/06/16 05:02: B-Type Natriuretic Peptide 540.2H 04/06/16 05:51: Troponin I 0.44*H 04/06/16 08:22: Potassium Level 3.2L 04/06/16 08:58: Aubrey Test POSITIVE, Arterial Blood Base Excess 0.5, Arterial Blood HCO3 26, Arterial Blood Oxygen Saturation 95, Arterial Blood Partial Pressure CO2 44, Arterial Blood Partial Pressure O2 70L, Arterial Blood Total CO2 27.3, Arterial Blood pH 7.39, Blood Gas Inspired Oxygen 30%, Blood Gas Patient Temperature 97.2 , Blood Gas Puncture Site RIGHT BRACHIAL, Blood Gas Ventilator Setting YES 04/06/16 11:23: Glucometer 159H 04/06/16 16:18: Glucometer 102 Microbiology 04/05/16 Blood Culture - Preliminary, Resulted No growth 04/04/16 Gram Stain - Final, Complete 04/04/16 Sputum Culture - Final, Complete Klebsiella Oxytoca 03/29/16 Urine Culture - Final, Complete Assessment/Plan Assessment/Plan Assess & Plan/Chief Complaint 1. Small Bowel Obstruction--S/P exploratory lap by Dr. Stephens with SARAH and small bowel resection with re-anastamosis and post-op complications of aspiration pneumonia and bilateral inguinal hernias having to be reduced 2. Acute Renal Failure/Dehydration--worsened since surgery 3. Acute Respiratory Failure with Post-op Aspiration--WBC count increased, on Zosyn and Vanc and sedated on ventilator--CXR looks improved so going to attempt Vent weaning today 4. Hypomagnesemia--on magnesium replacement protocol 5. Atrial Fibrillation with RVR--back in NSR but tachycardic so continue on IV lopressor Diagnosis/Problems: Clinical Quality Measures DVT/VTE Risk/Contraindication: Risk Factor Score Per Nursin RFS Level Per Nursing on Admit: 4+=Very High AIME CANO DO Apr 06, 2016 5:41 pm
[2016-04-06] MEDS: ENOXAPARIN 40 MG/0.4 ML (LOVENOX) SYR SC SCH (22:22)
[2016-04-06 23:42] LABS: CALCIUM IONIZED 1.05 mmol/L (1.16-1.32); CORRECTED IONIZED CALCIUM 1.04 mmol/L (1.16-1.32)
[2016-04-07] VITALS (11 sets, daily range): BP systolic 100–167; BP diastolic 56–92
[2016-04-07] MEDS: PIPERACILLIN SODIUM/TAZOBACTAM 4.5 GM in NS (IVPB) 100 ML IV SCH ×3 (00:17→16:50)
[2016-04-07] MEDS: inSUlin (REGULAR) HUMAN 1 UNIT/0.01 ML (CHARGE PER UNIT) SC SCH ×3 (00:18→12:37)
[2016-04-07] MEDS: RT-ALBUTEROL/IPRATROPIUM 3 ML (DUONEB) VIAL INH SCH ×6 (02:22→22:43)
[2016-04-07 04:38] LABS: BASOPHILS % (AUTO) 0 % (0-10); EOSINOPHILS % (AUTO) 0 % (0-10); LYMPHOCYTES # (AUTO) 0.3 X 10^3 (1.0-4.0); LYMPHOCYTES % (AUTO) 1 % (12-44); MEAN CORPUSCULAR HEMOGLOBIN 34 PG (25-34); MEAN CORPUSCULAR HGB CONC 33 G/DL (32-36); MEAN CORPUSCULAR VOLUME 102 FL (80-99); MONOCYTES # (AUTO) 0.7 X 10^3 (0.0-1.0); MONOCYTES % (AUTO) 3 % (0-12); NEUTROPHILS # (AUTO) 23.9 X 10^3 (1.8-7.8); NEUTROPHILS % (AUTO) 96 % (42-75); PLATELET COUNT 195 10^3/uL (130-400); RED BLOOD COUNT 2.55 10^6/uL (4.35-5.85); RED CELL DISTRIBUTION WIDTH 12.2 % (10.0-14.5); WHITE BLOOD COUNT 24.9 10^3/uL (4.3-11.0)
[2016-04-07 04:55] LABS: INR 1.1 (0.8-1.4); PROTHROMBIN TIME PATIENT 13.7 SEC (12.2-14.7)
[2016-04-07 05:12] LABS: ALBUMIN 2.6 G/DL (3.2-4.5); BILIRUBIN,TOTAL 0.2 MG/DL (0.1-1.0); CALCIUM 7.8 MG/DL (8.5-10.1); CREATININE SERUM 2.17 MG/DL (0.60-1.30); PHOSPHORUS 3.2 MG/DL (2.3-4.7); POTASSIUM 3.4 MMOL/L (3.6-5.0); TOTAL PROTEIN 4.8 G/DL (6.4-8.2)
[2016-04-07] MEDS: meTOprolol 5 MG/5 ML (LOPRESSOR) VIAL IV SCH ×4 (06:00→19:05)
[2016-04-07] MEDS: KCL 20 MEQ TAB (K-DUR) PO SCH (06:00)
[2016-04-07] MEDS: MAGNESIUM 1 GM/100 ML IVPB 100 ML IV SCH (06:00)
[2016-04-07] MEDS: POTASSIUM CL 10MEQ/50ML IVPB 50 ML IV SCH ×4 (06:20→09:15)
[2016-04-07] MEDS: HYDROCORTISONE 100 MG/2 ML (Solu-CORTEF) VIAL IV SCH (06:20)
[2016-04-07] MEDS: fentaNYL INJECTION 100 MCG/2 ML AMP IVP PRN ×3 (06:20→23:09)
[2016-04-07] MEDS: RT-BUDESONIDE NEBS 0.5 MG/2ML (PULMICORT) AMP INH SCH ×2 (06:29→22:43)
--- NOTE | 2016-04-07 06:44 | Pulmonary Progress Note ---
Subjective Subjective/Events-last exam Pt is doing well off vent and off pressors. Exam Exam Vital Signs Date Time Temp Pulse Resp B/P Pulse Ox O2 Delivery O2 Flow Rate FiO2 04/07/16 06:36 100 1.00 04/07/16 06:33 95 1.00 04/07/16 06:00 110 34 133/72 90 Nasal Cannula 2.00 04/07/16 05:00 102 33 103/74 94 Nasal Cannula 2.00 04/07/16 04:00 2.00 04/07/16 04:00 98.9 04/07/16 04:00 98 26 118/74 94 Nasal Cannula 2.00 04/07/16 03:00 105 32 109/65 92 Nasal Cannula 2.00 04/07/16 02:22 95 1.00 04/07/16 02:00 101 28 120/67 94 Nasal Cannula 2.00 04/07/16 01:00 99 04/07/16 01:00 100 24 107/56 95 Nasal Cannula 2.00 04/07/16 00:00 2.00 04/07/16 00:00 104 25 100/57 92 Nasal Cannula 2.00 04/06/16 23:00 113 31 93/66 92 Nasal Cannula 2.00 04/06/16 22:32 100 1.00 04/06/16 22:30 96 1.00 04/06/16 22:00 103 30 111/58 96 Nasal Cannula 2.00 04/06/16 21:00 104 26 117/69 95 Nasal Cannula 2.00 04/06/16 20:00 98.7 Nasal Cannula 2.00 04/06/16 20:00 2.00 04/06/16 20:00 110 29 94 Nasal Cannula 2.00 04/06/16 19:00 105 04/06/16 19:00 107 28 104/52 94 Nasal Cannula 2.00 04/06/16 18:27 92 1.50 04/06/16 18:00 104 26 98/53 95 Nasal Cannula 2.00 04/06/16 17:00 106 28 92/56 93 Nasal Cannula 2.00 04/06/16 16:00 2.00 04/06/16 16:00 98.1 105 26 103/56 95 Nasal Cannula 2.00 04/06/16 15:00 111 27 103/56 Nasal Cannula 3.00 04/06/16 14:16 100 3.00 04/06/16 14:00 102 27 113/64 100 Nasal Cannula 3.00 04/06/16 13:00 105 25 111/67 100 Nasal Cannula 30.00 3.00 04/06/16 13:00 101 04/06/16 12:00 98.1 111 29 109/64 99 Nasal Cannula 30.00 3.00 04/06/16 12:00 30 04/06/16 10:52 100 6.00 04/06/16 09:00 104 30 101/54 98 Mechanical Ventilator 30.00 04/06/16 08:00 97.6 115 29 135/55 97 Mechanical Ventilator 30.00 04/06/16 08:00 30 04/06/16 07:43 112 28 97 40 04/06/16 07:00 103 04/06/16 06:59 104 26 98 40 I & O 04/07/16 07:00 Intake Total 0 ml Output Total 2300 ml Balance -2300 ml General Appearance: Other (sedated on ventilator) HEENT: PERRL/EOMI Neck: Full Range of Motion Respiratory: Lungs Clear Decreased Breath Sounds Cardiovascular: Systolic Murmur Gallop/S4 Irregularly Irregular Gastrointestinal: soft abnormal bowel sounds (hypoactive) distended other ( dressing dry and in place with pressure dressing to lower inguinal area for hernias) Extremity: Non Tender No Calf Tenderness No Pedal Edema Other (SCDs in place) Neurologic/Psychiatric: Other (sedated on ventilator) Skin: Pallor Lymphatic: No Adenopathy Results Lab Laboratory Tests 04/05/16 23:35 04/06/16 05:00 04/06/16 08:22 04/07/16 04:20 Assessment/Plan Assessment/Plan Acute respiratory failure with aspiration -zosyn -Pt is doing well off vent Hypotension - Off vasopressin & levophed Small bowel obstruction s/p ex lap Inguinal hernia bilateral Acute renal failure/dehydration -IVF Arterial Fibrillation PT is ok to go to floor when ok with surgery. Clinical Quality Measures DVT/VTE Risk/Contraindication: Risk Factor Score Per Nursin RFS Level Per Nursing on Admit: 4+=Very High GRETCHEN OLSEN DO Apr 07, 2016 06:44
[2016-04-07 06:49] LABS: CALCIUM PH 7.39
--- NOTE | 2016-04-07 07:33 | Cardiology Progress Note ---
Subjective Subjective/Events-last exam patient is awake, feeling better, extubated, still have NG tube Review of Systems General: No Chills, No Night Sweats, No Fatigue, No Malaise, No Appetite, No Other HEENT: No Head Aches, No Visual Changes, No Eye Pain, No Ear Pain, No Dysphasia , No Sinus Congestion, No Post Nasal Drip, No Sore Throat, No Other Pulmonary: DyspneaNo Cough, No Pleuritic Chest Pain, No Other Cardiovascular: No: Chest Pain, Edema, Lt Headedness, Orthopnea, Other, Palpitations, Paroxysmal Noc. Dyspnea Objective-Cardiology Exam Last Set of Vital Signs Vital Signs 04/06/16 04/07/16 04/07/16 12:00 06:00 06:36 Pulse 110 Resp 34 B/P 133/72 Pulse Ox 100 O2 Delivery Nasal Cannula O2 Flow Rate 1.00 FiO2 30 Capillary Refill : I&O Intake and Output 04/07/16 00:00 Intake Total 1710 ml Output Total 1900 ml Balance -190 ml Intake Oral 0 ml IV Total 1710 ml Output Urine Total 1900 ml General: Alert, Oriented X3, Cooperative, Mild Distress HEENT: Atraumatic Neck: Supple, No JVD, No Thyromegaly Lungs: Normal Air Movement, Other (bilateral rhonchi) Heart: Normal S1, Normal S2, No Murmurs, Other (tachycardic) Abdomen: No Masses, Other (absent bowel sounds) Extremities: No Clubbing, No Cyanosis, No Edema, Normal Pulses, No Tenderness/ Swelling Skin: No Rashes, No Breakdown, No Significant Lesion Neuro: Other (sedated and intubated) Psych/Mental Status: Other (sedated and intubated) Results Lab Laboratory Tests 04/06/16 08:22 04/07/16 04:20 A/P-Cardiology Admission Diagnosis Afib with RVR CAD HTN SBO Assessment/Plan Acute respiratory failure, extubated yesterday, improving, continue to monitor. Managed by Dr. Mcdaniel Hypotensive shock, improved at this time, restart Lopressor IV and monitor her tolerance and response Small bowel obstruction, status post exploratory laparotomy, recovering slowly, managed by Dr. Stephens Acute on chronic renal failure, worsening renal function, receiving IV fluid. Continue to monitor Paroxysmal atrial fibrillation, back to sinus rhythm, in sinus tachycardia, restart IV Lopressor if tolerated, monitor closely. [id number] score of 5, yearly risk of stroke without OAC is 6.7%. restart Lovenox when tolerated. 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 Galaviz CAD- history of CABG x 1 last year, done at [place]. I will try to obtain copy for our records. Clinically stable, continue to monitor. SHAYNA- history of bilat CEA in the past by Dr. Spencer. Continue to monitor as outpatient. Hx of CVA COPD History of pulmonary hypertension. Continue to monitor Tobaccoism Clinical Quality Measures DVT/VTE Risk/Contraindication: Risk Factor Score Per Nursin RFS Level Per Nursing on Admit: 4+=Very High PAYTON BUTCHER MD Apr 07, 2016 07:32
--- NOTE | 2016-04-07 07:49 | Diagnostic Imaging Report ---
INDICATION: Dyspnea. Frontal chest obtained at 4:36 a.m. and compared with yesterday. FINDINGS: The heart is mildly enlarged. There is poststernotomy change. ET tube has been removed. NG tube remains in place with tip overlying proximal stomach. Extensive alveolar infiltrate in the right midlung and base is again noted and without significant change. There is some minimal infiltrate in the left infrahilar region. There is no pneumothorax. Left subclavian central catheter is unchanged as well as the left PICC line. IMPRESSION: Unchanged bilateral infiltrates right worse than left. No pneumothorax or significant sized effusion. Patient has been extubated since the prior study. Dictated by: Dictated on workstation # [id number]
[2016-04-07] MEDS: BISACODYL 10 MG SUPP (DULCOLAX) PR SCH ×2 (09:00→20:25)
[2016-04-07] MEDS: PANTOPRAZOLE 40 MG/10 ML (PROTONIX) VIAL IV SCH ×2 (09:15→20:25)
[2016-04-07] MEDS: NICOTINE PATCH REMOVAL TP SCH (09:15)
[2016-04-07] MEDS: NICOTINE 21 MG (NICODERM) PATCH TD SCH (09:15)
[2016-04-07] MEDS: POTASSIUM CL 10 MEQ/50 ML IVPB (PRE-MIX) IV SCH ×4 (09:30→11:09)
--- NOTE | 2016-04-07 09:52 | Physical Therapy Evaluation ---
PT Evaluation-General Medical Diagnosis Admission Date Mar 28, 2016 at 12:00 Medical Diagnosis: abdominal pain/dehydration Onset Date: Mar 28, 2016 Therapy Diagnosis Therapy Diagnosis: generalized weakness Height/Weight Height (Feet): 6 Height (Inches): 2.00 Weight (Pounds): 195 Weight (Ounces): 4.0 Precautions Precautions/Isolations: Fall Prevention, Standard Precautions Referral Physician: Kat Reason for Referral: Evaluation/Treatment Medical History Pertinent Medical History: CABG, CAD, COPD, Heart Failure, Renal Insufficiency , Smoking Additional Medical History SBO Current History s/p lap lysis of adhesions and small bowel resection Reviewed History: Yes Social History Home: Single Level Current Living Status: Alone Prior/Core FIM Prior Level of Function Functional Tyrrell Measure 0=Not Assessed/NA 4=Minimal Assistance 1=Total Assistance 5=Supervision or Setup 2=Maximal Assistance 6=Modified Tyrrell 3=Moderate Assistance 7=Complete Tyrrell Bed Mobility: 6 Transfers (B,C,W/C) (FIM): 6 Gait: 6 uses cane for ambulation PT Evaluation-Current Subjective Patient is in bed and very lethargic. He agrees to PT. Pain Numeric Pain Scale: 10-Worst Possible Pain Location: Lower Location Body Site: Abdomen Pain Description: Acute Pt/Family Goals improve Objective Patient Orientation: Normal For Age Problem Solving: Good Attachments: NG Tube, Oxygen, Helms Catheter, IV ROM/Strength ROM Lower Extremities bilateral LE WFL Strenght Lower Extremities right knee flexion/extension 3+/5; hip flexion 3/5; ankle dorsi/plantarflexion 3 /5 left knee flexion/extension 3+/5; hip flexion 3/5; ankle dorsi/plantarflexion 3/ 5 Integumentary/Posture Integumentary refer to nursing notes Bowel Incontinence: Yes Bladder Incontinence: Helms Cath Posture WNL Neuromuscular (Tone, Coordination, Reflexes) grossly intact Sensory Vision: Functional Hearing: Functional Sensation Right Lower Extremit: Intact Sensation Left Lower Extremity: Intact Transfers Functional Tyrrell Measure 0=Not Assessed/NA 4=Minimal Assistance 1=Total Assistance 5=Supervision or Setup 2=Maximal Assistance 6=Modified Tyrrell 3=Moderate Assistance 7=Complete Tyrrell Transfers (B, C, W/C) (FIM): 3 Scootin Rollin Supine to/from Sit: 3 Sit to/from Stand: 3 Gait Mode of Locomotion: Walk Anticipated Mode of Locomotion: Walk Comments/Gait Description Patient is unable to ambulate at this time due to weakness Balance Sitting Static: Fair Sitting Dynamic: Fair Standing Static: Fair Standing Dynamic: Fair Assessment/Needs 60 y.o. male, will benefit from skilled PT to address functional strength and mobility to improve current LOF and to safely return to home at maximum LOF with all gross motor skills. Rehab Potential: Fair PT Retirement Goals Public Service Director Goals PT Public Service Director Goals Time Frame: Apr 15, 2016 Transfers (B,C,W/C) (FIM): 6 Gait (FIM): 6 Gait distance (FIM): 3=150 ft Gait Level of Assist: 6 Gait Assistive Device: FWW, Cane Single Point PT Plan Problem List Problem List: Activity Tolerance, Functional Strength, Balance, Gait Treatment/Plan Treatment Plan: Continue Plan of Care Treatment Plan: Bed Mobility, Education, Functional Activity Kris, Functional Strength, Gait, Safety, Therapeutic Exercise, Transfers Treatment Duration: Apr 15, 2016 # of days/week 5-6 Visits Per Week: 5-6 Pt/Family Agrees w/Plan: Yes Safety Risks/Education Patient Education: Safety Issues Teaching Recipient: Patient Teaching Methods: Discussion Response to Teaching: Verbalize Understanding Discharge Recommendations Therapy D/C Recommendations: Home Independently Time/GCodes Time In: 815 Time Out: 840 Total Billed Treatment Time: 25 [facility] Necessary: JESS Mckoy PT Apr 07, 2016 09:52
--- NOTE | 2016-04-07 13:17 | Progress Note (SOAP) ---
Subjective Subjective/Events-last exam Fwup small bowel obstruction--S/P exploratory lab with small bowel resection and reanastamosis, acute renal failure--worsened since surgery, dehydration, COPD, Atrial fibrillation with RVR, Post-op VDRF with aspiration pneumonia. Weaned from ventilator yesterday. Up in chair with NG tube in place. Complains of thirsty and some abdominal pain. Objective Exam Vital Signs Date Time Temp Pulse Resp B/P Pulse Ox O2 Delivery O2 Flow Rate FiO2 04/07/16 12:38 2.00 04/07/16 12:37 96.4 95 32 143/72 97 Nasal Cannula 2.00 04/07/16 11:03 99 1.00 04/07/16 08:25 2.00 04/07/16 08:24 97.4 101 29 122/59 94 Nasal Cannula 2.00 04/07/16 07:00 101 04/07/16 07:00 101 04/07/16 06:36 100 1.00 04/07/16 06:33 95 1.00 04/07/16 06:00 110 34 133/72 90 Nasal Cannula 2.00 04/07/16 05:00 102 33 103/74 94 Nasal Cannula 2.00 04/07/16 04:00 2.00 04/07/16 04:00 98.9 04/07/16 04:00 98 26 118/74 94 Nasal Cannula 2.00 04/07/16 03:00 105 32 109/65 92 Nasal Cannula 2.00 04/07/16 02:22 95 1.00 04/07/16 02:00 101 28 120/67 94 Nasal Cannula 2.00 04/07/16 01:00 99 04/07/16 01:00 100 24 107/56 95 Nasal Cannula 2.00 04/07/16 00:00 2.00 04/07/16 00:00 104 25 100/57 92 Nasal Cannula 2.00 04/06/16 23:00 113 31 93/66 92 Nasal Cannula 2.00 04/06/16 22:32 100 1.00 04/06/16 22:30 96 1.00 04/06/16 22:00 103 30 111/58 96 Nasal Cannula 2.00 04/06/16 21:00 104 26 117/69 95 Nasal Cannula 2.00 04/06/16 20:00 98.7 Nasal Cannula 2.00 04/06/16 20:00 2.00 04/06/16 20:00 110 29 94 Nasal Cannula 2.00 04/06/16 19:00 105 04/06/16 19:00 107 28 104/52 94 Nasal Cannula 2.00 04/06/16 18:27 92 1.50 04/06/16 18:00 104 26 98/53 95 Nasal Cannula 2.00 04/06/16 17:00 106 28 92/56 93 Nasal Cannula 2.00 04/06/16 16:00 2.00 04/06/16 16:00 98.1 105 26 103/56 95 Nasal Cannula 2.00 04/06/16 15:00 111 27 103/56 Nasal Cannula 3.00 04/06/16 14:16 100 3.00 04/06/16 14:00 102 27 113/64 100 Nasal Cannula 3.00 I & O 04/07/16 07:00 Intake Total 0 ml Output Total 2300 ml Balance -2300 ml Capillary Refill : General Appearance: Mild Distress HEENT: Other (NG tube in place) Neck: Supple Respiratory: Lungs Clear Decreased Breath Sounds Cardiovascular: Regular Rate, Rhythm Systolic Murmur Gastrointestinal: non tender soft abnormal bowel sounds (hypoactive) other ( dressing dry and in place) Extremity: Non Tender No Calf Tenderness No Pedal Edema Neurologic/Psychiatric: Alert Oriented x3 Skin: Pallor Results Lab Laboratory Tests 04/06/16 16:18: Glucometer 102 04/07/16 00:11: Glucometer 191H 04/07/16 04:20: Alanine Aminotransferase (ALT/SGPT) 7, Albumin 2.6L, Alkaline Phosphatase 104, Anion Gap 10, Aspartate Amino Transf (AST/SGOT) 19, BUN/Creatinine Ratio 19, Basophils # (Auto) 0.0, Basophils (%) (Auto) 0, Blood Urea Nitrogen 41H, Calcium Level 7.8L, Carbon Dioxide Level 26, Chloride Level 109H, Creatinine 2.17H, Eosinophils # (Auto) 0.0, Eosinophils (%) (Auto) 0, Estimat Glomerular Filtration Rate 31, Glucose Level 224H, Hematocrit 26L, Hemoglobin 8.6L, INR Comment 1.1, Lymphocytes # (Auto) 0.3L, Lymphocytes (%) (Auto) 1L, Magnesium Level 2.0, Mean Corpuscular Hemoglobin 34, Mean Corpuscular Hemoglobin Concent 33, Mean Corpuscular Volume 102H, Mean Platelet Volume 10.0, Monocytes # (Auto) 0.7, Monocytes (%) (Auto) 3, Neutrophils # (Auto) 23.9H, Neutrophils (%) (Auto) 96H, Phosphorus Level 3.2, Platelet Count 195, Potassium Level 3.4L, Prealbumin 4.8L, Prothrombin Time 13.7, Red Blood Count 2.55L, Red Cell Distribution Width 12.2, Sodium Level 145, Total Bilirubin 0.2, Total Protein 4.8L, Triglycerides Level 75, White Blood Count 24.9H Microbiology 04/05/16 Blood Culture - Preliminary, Resulted No growth 04/04/16 Gram Stain - Final, Complete 04/04/16 Sputum Culture - Final, Complete Klebsiella Oxytoca 03/29/16 Urine Culture - Final, Complete Assessment/Plan Assessment/Plan Assess & Plan/Chief Complaint 1. Small Bowel Obstruction--S/P exploratory lap by Dr. Stephens with SARAH and small bowel resection with re-anastamosis and post-op complications of aspiration pneumonia and bilateral inguinal hernias having to be reduced 2. Acute Renal Failure/Dehydration--worsened since surgery but Cr improved this AM 3. Acute Respiratory Failure with Post-op Aspiration--WBC count increased, on Zosyn and Vanc, off ventilator--CXR looks improved 4. Hypomagnesemia--on magnesium replacement protocol 5. Atrial Fibrillation with RVR--back in NSR but tachycardic so continue on IV lopressor Diagnosis/Problems: Clinical Quality Measures DVT/VTE Risk/Contraindication: Risk Factor Score Per Nursin RFS Level Per Nursing on Admit: 4+=Very High AIME CANO DO Apr 07, 2016 1:17 pm
[2016-04-07] MEDS ORDERED: fentaNYL INJECTION 100 MCG/2 ML AMP IVP PRN ×3 (16:00→20:00)
[2016-04-07] MEDS: SODIUM ACETATE IV SCH ×10 (16:51)
[2016-04-07] MEDS: SODIUM PHOSPHATE IV SCH ×10 (16:51)
[2016-04-07] MEDS: POTASSIUM CHLORIDE IV SCH ×10 (16:51)
[2016-04-07] MEDS: [UNRECOGNIZED DRUG - OTHER] IV SCH ×10 (16:51)
[2016-04-07] MEDS: LORazepam INJ 2 MG/ML (ATIVAN) VIAL IV PRN (16:52)
--- NOTE | 2016-04-07 17:51 | Progress Note (SOAP) ---
Subjective Subjective/Events-last exam doing better. passing gas. pain controlled. no SOB. Objective Exam Vital Signs Date Time Temp Pulse Resp B/P Pulse Ox O2 Delivery O2 Flow Rate FiO2 04/07/16 13:00 87 04/07/16 12:38 2.00 04/07/16 12:37 96.4 95 32 143/72 97 Nasal Cannula 2.00 04/07/16 11:03 99 1.00 04/07/16 08:25 2.00 04/07/16 08:24 97.4 101 29 122/59 94 Nasal Cannula 2.00 04/07/16 07:00 101 04/07/16 07:00 101 04/07/16 06:36 100 1.00 04/07/16 06:33 95 1.00 04/07/16 06:00 110 34 133/72 90 Nasal Cannula 2.00 04/07/16 05:00 102 33 103/74 94 Nasal Cannula 2.00 04/07/16 04:00 2.00 04/07/16 04:00 98.9 04/07/16 04:00 98 26 118/74 94 Nasal Cannula 2.00 04/07/16 03:00 105 32 109/65 92 Nasal Cannula 2.00 04/07/16 02:22 95 1.00 04/07/16 02:00 101 28 120/67 94 Nasal Cannula 2.00 04/07/16 01:00 99 04/07/16 01:00 100 24 107/56 95 Nasal Cannula 2.00 04/07/16 00:00 2.00 04/07/16 00:00 104 25 100/57 92 Nasal Cannula 2.00 04/06/16 23:00 113 31 93/66 92 Nasal Cannula 2.00 04/06/16 22:32 100 1.00 04/06/16 22:30 96 1.00 04/06/16 22:00 103 30 111/58 96 Nasal Cannula 2.00 04/06/16 21:00 104 26 117/69 95 Nasal Cannula 2.00 04/06/16 20:00 98.7 Nasal Cannula 2.00 04/06/16 20:00 2.00 04/06/16 20:00 110 29 94 Nasal Cannula 2.00 04/06/16 19:00 105 04/06/16 19:00 107 28 104/52 94 Nasal Cannula 2.00 04/06/16 18:27 92 1.50 04/06/16 18:00 104 26 98/53 95 Nasal Cannula 2.00 I & O 04/07/16 07:00 Intake Total 0 ml Output Total 2300 ml Balance -2300 ml Capillary Refill : General Appearance: No Apparent Distress HEENT: PERRL/EOMI Neck: Full Range of Motion Respiratory: Decreased Breath Sounds Rhonci Cardiovascular: Regular Rate, Rhythm Gastrointestinal: soft other Extremity: Normal Capillary Refill Neurologic/Psychiatric: Alert Oriented x3 Skin: Normal Color Lymphatic: No Adenopathy Results Lab Laboratory Tests 04/07/16 00:11: Glucometer 191H 04/07/16 04:20: Alanine Aminotransferase (ALT/SGPT) 7, Albumin 2.6L, Alkaline Phosphatase 104, Anion Gap 10, Aspartate Amino Transf (AST/SGOT) 19, BUN/Creatinine Ratio 19, Basophils # (Auto) 0.0, Basophils (%) (Auto) 0, Blood Urea Nitrogen 41H, Calcium Level 7.8L, Carbon Dioxide Level 26, Chloride Level 109H, Creatinine 2.17H, Eosinophils # (Auto) 0.0, Eosinophils (%) (Auto) 0, Estimat Glomerular Filtration Rate 31, Glucose Level 224H, Hematocrit 26L, Hemoglobin 8.6L, INR Comment 1.1, Lymphocytes # (Auto) 0.3L, Lymphocytes (%) (Auto) 1L, Magnesium Level 2.0, Mean Corpuscular Hemoglobin 34, Mean Corpuscular Hemoglobin Concent 33, Mean Corpuscular Volume 102H, Mean Platelet Volume 10.0, Monocytes # (Auto) 0.7, Monocytes (%) (Auto) 3, Neutrophils # (Auto) 23.9H, Neutrophils (%) (Auto) 96H, Phosphorus Level 3.2, Platelet Count 195, Potassium Level 3.4L, Prealbumin 4.8L, Prothrombin Time 13.7, Red Blood Count 2.55L, Red Cell Distribution Width 12.2, Sodium Level 145, Total Bilirubin 0.2, Total Protein 4.8L, Triglycerides Level 75, White Blood Count 24.9H Microbiology 04/05/16 Blood Culture - Preliminary, Resulted No growth 04/04/16 Gram Stain - Final, Complete 04/04/16 Sputum Culture - Final, Complete Klebsiella Oxytoca 03/29/16 Urine Culture - Final, Complete Assessment/Plan Assessment/Plan Assess & Plan/Chief Complaint SBO s/p laparoscopic lysis of adhesions and small bowel resection. underlying cardiopulmonary disease and renal failure. recently extubated and doing well so far. continue supportive care for now and await definititve bowel function. will continue NGT and TPN for now. continue abx for suspected pneumonia. d/c ortiz. increase ambulation. transfer to floor. Diagnosis/Problems: Clinical Quality Measures DVT/VTE Risk/Contraindication: Risk Factor Score Per Nursin RFS Level Per Nursing on Admit: 4+=Very High BRITTANY CHAPA MD Apr 07, 2016 5:51 pm
[2016-04-07] MEDS: ENOXAPARIN 40 MG/0.4 ML (LOVENOX) SYR SC SCH (20:25)
[2016-04-07] MEDS ORDERED: inSUlin (REGULAR) HUMAN 1 UNIT/0.01 ML (CHARGE PER UNIT) SC SCH (21:00)
[2016-04-08] VITALS (25 sets, daily range): BP systolic 79–201; BP diastolic 64–103
[2016-04-08] MEDS: PIPERACILLIN SODIUM/TAZOBACTAM 4.5 GM in NS (IVPB) 100 ML IV SCH ×4 (00:27→23:45)
[2016-04-08] MEDS: meTOprolol 5 MG/5 ML (LOPRESSOR) VIAL IV SCH ×7 (00:27→23:59)
[2016-04-08] MEDS: RT-ALBUTEROL/IPRATROPIUM 3 ML (DUONEB) VIAL INH SCH ×6 (02:51→22:03)
[2016-04-08] MEDS: fentaNYL INJECTION 100 MCG/2 ML AMP IVP PRN ×6 (03:10→19:24)
[2016-04-08] MEDS: LORazepam INJ 2 MG/ML (ATIVAN) VIAL IVP PRN ×2 (05:55→18:03)
[2016-04-08] MEDS: RT-BUDESONIDE NEBS 0.5 MG/2ML (PULMICORT) AMP INH SCH ×2 (06:25→19:54)
[2016-04-08] MEDS ORDERED: meTOprolol 5 MG/5 ML (LOPRESSOR) VIAL IV ONE (06:30)
[2016-04-08 06:34] LABS: BASOPHILS % (AUTO) 0 % (0-10); EOSINOPHILS % (AUTO) 0 % (0-10); LYMPHOCYTES # (AUTO) 0.8 X 10^3 (1.0-4.0); LYMPHOCYTES % (AUTO) 4 % (12-44); MEAN CORPUSCULAR HEMOGLOBIN 33 PG (25-34); MEAN CORPUSCULAR HGB CONC 31 G/DL (32-36); MEAN CORPUSCULAR VOLUME 105 FL (80-99); MEAN PLATELET VOLUME 10.2 FL (7.4-10.4); MONOCYTES # (AUTO) 1.2 X 10^3 (0.0-1.0); MONOCYTES % (AUTO) 6 % (0-12); NEUTROPHILS # (AUTO) 18.6 X 10^3 (1.8-7.8); NEUTROPHILS % (AUTO) 91 % (42-75); PLATELET COUNT 225 10^3/uL (130-400); RED BLOOD COUNT 2.89 10^6/uL (4.35-5.85); RED CELL DISTRIBUTION WIDTH 12.5 % (10.0-14.5); WHITE BLOOD COUNT 20.6 10^3/uL (4.3-11.0)
[2016-04-08] MEDS ORDERED: fentaNYL INJECTION 100 MCG/2 ML AMP IVP ONE (06:45)
--- NOTE | 2016-04-08 06:47 | Pulmonary Progress Note ---
Subjective Subjective/Events-last exam Pt is doing much better and was transferred to 4th floor yesterday without me knowing about it. He appears very anxious/agitated currently. He is connected to pulse oximetry and his Sp02 is 85%. RN not at bedside. Upon discussing with RN she states he has developed increasing SOB throughout the night. She called Dr. Sanchez who gave order for stat CXR. Exam Exam Vital Signs Date Time Temp Pulse Resp B/P Pulse Ox O2 Delivery O2 Flow Rate FiO2 04/08/16 06:38 98 4.00 04/08/16 06:25 94 4.00 04/08/16 02:51 99 4.00 04/08/16 01:00 88 04/08/16 00:00 97.8 100 24 164/86 97 Nasal Cannula 4.00 04/07/16 23:50 4.00 04/07/16 22:45 99 1.00 04/07/16 22:33 99 1.00 04/07/16 20:20 97.3 89 16 116/92 97 Nasal Cannula 4.00 04/07/16 20:00 97 4.00 04/07/16 19:00 88 04/07/16 18:54 100 1.00 04/07/16 16:00 98.0 90 26 167/92 99 Nasal Cannula 2.00 04/07/16 16:00 2.00 04/07/16 13:00 87 04/07/16 12:38 2.00 04/07/16 12:37 96.4 95 32 143/72 97 Nasal Cannula 2.00 04/07/16 11:03 99 1.00 04/07/16 08:25 2.00 04/07/16 08:24 97.4 101 29 122/59 94 Nasal Cannula 2.00 04/07/16 07:00 101 04/07/16 07:00 101 I & O 04/08/16 07:00 Intake Total 340 ml Output Total 1825 ml Balance -1485 ml General Appearance: No Apparent Distress HEENT: PERRL/EOMI Neck: Full Range of Motion Respiratory: Decreased Breath Sounds Rhonci Cardiovascular: Regular Rate, Rhythm Gastrointestinal: soft other Extremity: Normal Capillary Refill Neurologic/Psychiatric: Alert Oriented x3 Skin: Normal Color Lymphatic: No Adenopathy Results Lab Laboratory Tests 04/06/16 08:22 04/07/16 04:20 04/08/16 06:05 Assessment/Plan Assessment/Plan Acute respiratory failure with aspiration -louisasyn -Pt was transferred to 4th floor yesterday without me knowing about it. RN states pt has been hypoxic and SOB most of the night. Dr. Sanchez was called and stat CXR was ordered. PT is also more confused with Sp02 85% currently on NC. Pt needs more attention then what he is currently getting on the floor. I am going to transfer him back to ICU. He just came off of Levophed, vasopressin , and the ventilator yesterday morning. Pt needs another 24-48hrs in ICU to ensure he is stable enough for floor. metabolic encephalopathy -Decrease sedation medications and continue to monitor Small bowel obstruction s/p ex lap Inguinal hernia bilateral Acute renal failure/dehydration -IVF Arterial Fibrillation Clinical Quality Measures DVT/VTE Risk/Contraindication: Risk Factor Score Per Nursin RFS Level Per Nursing on Admit: 4+=Very High GRETCHEN OLSEN DO Apr 08, 2016 06:47
[2016-04-08] MEDS ORDERED: TROUGH ORDER-PHARMACY XX NR (07:00)
[2016-04-08 07:09] LABS: CALCIUM 8.4 MG/DL (8.5-10.1); CREATININE SERUM 1.49 MG/DL (0.60-1.30); PHOSPHORUS 3.3 MG/DL (2.3-4.7); POTASSIUM 3.9 MMOL/L (3.6-5.0)
--- NOTE | 2016-04-08 07:09 | Diagnostic Imaging Report ---
INDICATION: Shortness of breath. Portable chest 6:46 AM FINDINGS: NG tube enters the stomach. Left upper extremity PICC line tip projects over the SVC. Left subclavian central line tip projects over the SVC. There are small pleural effusions. There is some infiltrate present in the right midlung which is improved slightly from the previous day. IMPRESSION: Improving infiltrate right lung. Dictated by: Dictated on workstation # [id number]
[2016-04-08] MEDS: PANTOPRAZOLE 40 MG/10 ML (PROTONIX) VIAL IV SCH ×2 (10:03→21:10)
[2016-04-08] MEDS: NICOTINE PATCH REMOVAL TP SCH (10:03)
[2016-04-08] MEDS: NICOTINE 21 MG (NICODERM) PATCH TD SCH (10:03)
[2016-04-08] MEDS: BISACODYL 10 MG SUPP (DULCOLAX) PR SCH ×3 (10:03→20:13)
--- NOTE | 2016-04-08 10:21 | Physical Therapy Progress Note ---
Therapy Progress Note Patient transferred to ICU secondary to decline in medical status. RN and PT agree to Hold on this date. Will check status in JESS Peng PT Apr 08, 2016 10:21
--- NOTE | 2016-04-08 11:48 | Progress Note (SOAP) ---
Subjective Subjective/Events-last exam Fwup small bowel obstruction--S/P exploratory lab with small bowel resection and reanastamosis, acute renal failure--worsened since surgery, dehydration, COPD, Atrial fibrillation with RVR, Post-op VDRF with aspiration pneumonia. Was transferred to medical yesterday and had worsening pain and shortness of air overnight so was transferred back to ICU this AM by pulmonology. Objective Exam Vital Signs Date Time Temp Pulse Resp B/P Pulse Ox O2 Delivery O2 Flow Rate FiO2 04/08/16 11:09 114 21 99 40.00 04/08/16 10:02 95 6.00 04/08/16 08:41 98.3 105 24 178/88 95 Nasal Cannula 4.00 04/08/16 08:13 94 6.00 04/08/16 07:45 168/95 04/08/16 07:43 106 201/93 99 Nasal Cannula 4.00 04/08/16 07:30 105 89 Nasal Cannula 4.00 04/08/16 06:38 98 4.00 04/08/16 06:25 94 4.00 04/08/16 04:00 98.3 89 24 170/78 93 Nasal Cannula 4.00 04/08/16 02:51 99 4.00 04/08/16 01:00 88 04/08/16 00:00 97.8 100 24 164/86 97 Nasal Cannula 4.00 04/07/16 23:50 4.00 04/07/16 22:45 99 1.00 04/07/16 22:33 99 1.00 04/07/16 20:20 97.3 89 16 116/92 97 Nasal Cannula 4.00 04/07/16 20:00 97 4.00 04/07/16 19:00 88 04/07/16 18:54 100 1.00 04/07/16 16:00 98.0 90 26 167/92 99 Nasal Cannula 2.00 04/07/16 16:00 2.00 04/07/16 13:00 87 04/07/16 12:38 2.00 04/07/16 12:37 96.4 95 32 143/72 97 Nasal Cannula 2.00 I & O 04/08/16 07:00 Intake Total 340 ml Output Total 3000 ml Balance -2660 ml Capillary Refill : General Appearance: No Apparent Distress Neck: Supple Respiratory: Decreased Breath Sounds Cardiovascular: Systolic Murmur Gallop/S4 Tachycardia Gastrointestinal: non tender soft abnormal bowel sounds (hypoactive) Extremity: Non Tender No Calf Tenderness No Pedal Edema Neurologic/Psychiatric: Alert Results Lab Laboratory Tests 04/08/16 06:05: Anion Gap 10, BUN/Creatinine Ratio 23, Basophils # (Auto) 0.0, Basophils (%) ( Auto) 0, Blood Urea Nitrogen 35H, Calcium Level 8.4L, Carbon Dioxide Level 31, Chloride Level 112H, Creatinine 1.49H, Eosinophils # (Auto) 0.0, Eosinophils (% ) (Auto) 0, Estimat Glomerular Filtration Rate 48, Glucose Level 135H, Hematocrit 30L, Hemoglobin 9.4L, Lymphocytes # (Auto) 0.8L, Lymphocytes (%) ( Auto) 4L, Magnesium Level 2.0, Mean Corpuscular Hemoglobin 33, Mean Corpuscular Hemoglobin Concent 31L, Mean Corpuscular Volume 105H, Mean Platelet Volume 10.2 , Monocytes # (Auto) 1.2H, Monocytes (%) (Auto) 6, Neutrophils # (Auto) 18.6H, Neutrophils (%) (Auto) 91H, Phosphorus Level 3.3, Platelet Count 225, Potassium Level 3.9, Red Blood Count 2.89L, Red Cell Distribution Width 12.5, Sodium Level 153H, White Blood Count 20.6H Microbiology 04/05/16 Blood Culture - Preliminary, Resulted No growth 04/04/16 Gram Stain - Final, Complete 04/04/16 Sputum Culture - Final, Complete Klebsiella Oxytoca 03/29/16 Urine Culture - Final, Complete Assessment/Plan Assessment/Plan Assess & Plan/Chief Complaint 1. Small Bowel Obstruction--S/P exploratory lap by Dr. Stephens with SARAH and small bowel resection with re-anastamosis and post-op complications of aspiration pneumonia and bilateral inguinal hernias having to be reduced--post- op ileus--NG tube still in place 2. Acute Renal Failure/Dehydration--worsened since surgery but Cr improved this AM 3. Acute Respiratory Failure with Post-op Aspiration--WBC count improving, on Zosyn and Vanc, off ventilator--CXR looks improved, worsening Shortness of air this AM which could have been oversedation from ativan and increased pain 4. Hypomagnesemia--on magnesium replacement protocol, stable 5. Atrial Fibrillation with RVR--back in NSR but tachycardic so continue on IV lopressor Diagnosis/Problems: Clinical Quality Measures DVT/VTE Risk/Contraindication: Risk Factor Score Per Nursin RFS Level Per Nursing on Admit: 4+=Very High AIME CANO DO Apr 08, 2016 11:48 am
--- NOTE | 2016-04-08 14:03 | Progress Note-Cardiology ---
Cardiology SOAP Progress Note Subjective: C/o dyspnea. No c/o pain, CP. Objective: I&O/Vital Signs Vital Sign - Last 12Hours 04/08/16 04/08/16 04/08/16 04/08/16 02:51 04:00 06:25 06:38 Temp 98.3 Pulse 89 Resp 24 B/P 170/78 Pulse Ox 99 93 94 98 O2 Delivery Nasal Cannula O2 Flow Rate 4.00 4.00 4.00 4.00 04/08/16 04/08/16 04/08/16 04/08/16 07:30 07:43 07:45 08:13 Pulse 105 106 B/P 201/93 168/95 Pulse Ox 89 99 94 O2 Delivery Nasal Cannula Nasal Cannula O2 Flow Rate 4.00 4.00 6.00 04/08/16 04/08/16 04/08/16 04/08/16 08:41 10:02 11:09 13:00 Temp 98.3 Pulse 105 114 107 Resp 24 21 B/P 178/88 Pulse Ox 95 95 99 O2 Delivery Nasal Cannula O2 Flow Rate 4.00 6.00 40.00 04/08/16 13:50 Pulse 101 Resp 38 Pulse Ox 100 O2 Flow Rate 40.00 Intake and Output 04/08/16 00:00 Intake Total 340 ml Output Total 1825 ml Balance -1485 ml Weight (Pounds): 187 Weight (Ounces): 4.0 Weight (Calculated Kilograms): 84.654364 Constitutional: No apparent distress, well-developed Respiratory: chest expansion is symmetric chest is bilaterally symmetric crackles wheezing (scattered) Cardiovascular: regular rate-rhythm (tachycardic)No JVD, S1 and S2 systolic murmur Gastrointestional: other (post surgical abdomen; NG tube in place) Genital/Rectal: other (Urinary catheter to DD; clear, yellow urine) Extremities: no lower extremity edema bilateral Neurologic/Psychiatric: grossly intact Results/Procedures: Labs Laboratory Tests 04/08/16 06:05: Anion Gap 10, BUN/Creatinine Ratio 23, Basophils # (Auto) 0.0, Basophils (%) ( Auto) 0, Blood Urea Nitrogen 35H, Calcium Level 8.4L, Carbon Dioxide Level 31, Chloride Level 112H, Creatinine 1.49H, Eosinophils # (Auto) 0.0, Eosinophils (% ) (Auto) 0, Estimat Glomerular Filtration Rate 48, Glucose Level 135H, Hematocrit 30L, Hemoglobin 9.4L, Lymphocytes # (Auto) 0.8L, Lymphocytes (%) ( Auto) 4L, Magnesium Level 2.0, Mean Corpuscular Hemoglobin 33, Mean Corpuscular Hemoglobin Concent 31L, Mean Corpuscular Volume 105H, Mean Platelet Volume 10.2 , Monocytes # (Auto) 1.2H, Monocytes (%) (Auto) 6, Neutrophils # (Auto) 18.6H, Neutrophils (%) (Auto) 91H, Phosphorus Level 3.3, Platelet Count 225, Potassium Level 3.9, Red Blood Count 2.89L, Red Cell Distribution Width 12.5, Sodium Level 153H, White Blood Count 20.6H Microbiology 04/05/16 Blood Culture - Preliminary, Resulted No growth 04/04/16 Gram Stain - Final, Complete 04/04/16 Sputum Culture - Final, Complete Klebsiella Oxytoca 03/29/16 Urine Culture - Final, Complete Procedures NAME: APARNA HARMON [facility] REC#: [id number] PT STATUS: ADM IN : 1955 PHYSICIAN: AIME CANO DO ADMIT DATE: 03/28/16 Signed Date of Exam: 04/08/16 CHEST 1 VIEW, AP/PA ONLY INDICATION: Shortness of breath. Portable chest 6:46 AM FINDINGS: NG tube enters the stomach. Left upper extremity PICC line tip projects over the SVC. Left subclavian central line tip projects over the SVC. There are small pleural effusions. There is some infiltrate present in the right midlung which is improved slightly from the previous day. IMPRESSION: Improving infiltrate right lung. Dictated by: Dictated on workstation # [id number] Dict: 04/08/16 0658 Trans: 04/08/16 0916 [id number] Interpreted by: APARNA FLORES Electronically signed by:APARNA FLORES 04/08/16 0918 A/P: Assessment: Acute respiratory failure, extubated yesterday - increasing SOB, transferred back to ICU - management per Dr. Mcdaniel Sepsis - being managed by medical services Small bowel obstruction, status post exploratory laparotomy, recovering slowly, managed by Dr. Kido Acute on chronic renal failure, improved renal function, receiving IV fluid. Continue to monitor Paroxysmal atrial fibrillation, back to sinus rhythm, in sinus tachycardia - continue BB [id number] score of 5, yearly risk of stroke without OAC is 6.7%. restart Lovenox when tolerated. Need to be on NOAC prior to discharge Echocardiogram was of poor quality, there is questionable echogenic density in the left atrium, recommend DIAN, discussed it with the patient, he prefer to have it done as an outpatient with his primary land manager Dr. Galaviz. LVEF 60% . CAD- history of CABG x 1 last year, done at [place]. Clinically stable, continue to monitor. SHAYNA- history of bilat CEA in the past by Dr. Spencer. Continue to monitor as outpatient. Hx of CVA COPD History of pulmonary hypertension. Continue to monitor Tobaccoism Hypernatremia being managed by medical services Plan: HR and BP not well controlled. Will increase BB Monitor lab closely D/t CAD advise ASA 81mg be resumed as soon as OK with surgical services Respiratory failure being managed by pulmonary services Physician Assessment Physician Assessment Appears exhausted and somnolent On BiPAP Cor reg Lungs: dec bs at bases, increased exp phase A&R * As documented in our note above * I spoke examined him, and reviewed his case in detail and spoke in detail with his and sister * Critically ill and prognosis guarded at this time MACY COURTNEY Apr 08, 2016 14:03 RACHEL RAVI MD [facility] CCDS Apr 08, 2016 14:38
[2016-04-08] MEDS: FUROSEMIDE 40 MG/4 ML INJ (LASIX) IVP SCH (18:08)
[2016-04-08] MEDS: POTASSIUM CHLORIDE IV SCH ×11 (18:19)
[2016-04-08] MEDS: [UNRECOGNIZED DRUG - OTHER] IV SCH ×11 (18:19)
[2016-04-08] MEDS: SODIUM PHOSPHATE IV SCH ×11 (18:19)
[2016-04-08] MEDS: SODIUM ACETATE IV SCH ×11 (18:19)
[2016-04-08] MEDS ORDERED: DEXMEDETOMIDINE PRE-MIX 100 ML IV ONE (20:42)
[2016-04-08] MEDS: ENOXAPARIN 40 MG/0.4 ML (LOVENOX) SYR SC SCH (21:10)
[2016-04-08] MEDS: DEXMEDETOMIDINE 400 MCG/100 ML IV SCH (21:12)
[2016-04-08] MEDS: [UNRECOGNIZED DRUG - OTHER] IV SCH (21:12)
[2016-04-09] VITALS (37 sets, daily range): BP systolic 100–171; BP diastolic 49–97
[2016-04-09] MEDS: [UNRECOGNIZED DRUG - OTHER] IV SCH ×5 (01:02→20:13)
[2016-04-09] MEDS: DEXMEDETOMIDINE 400 MCG/100 ML IV SCH ×5 (01:02→20:13)
[2016-04-09] MEDS: RT-ALBUTEROL/IPRATROPIUM 3 ML (DUONEB) VIAL INH SCH ×6 (02:11→22:40)
[2016-04-09] MEDS: meTOprolol 5 MG/5 ML (LOPRESSOR) VIAL IV SCH ×7 (03:43→20:14)
[2016-04-09 05:08] LABS: BASOPHILS % (AUTO) 0 % (0-10); EOSINOPHILS # (AUTO) 0.1 10^3/uL (0.0-0.3); EOSINOPHILS % (AUTO) 1 % (0-10); LYMPHOCYTES # (AUTO) 0.6 X 10^3 (1.0-4.0); LYMPHOCYTES % (AUTO) 6 % (12-44); MEAN CORPUSCULAR HEMOGLOBIN 33 PG (25-34); MEAN CORPUSCULAR HGB CONC 31 G/DL (32-36); MEAN CORPUSCULAR VOLUME 107 FL (80-99); MONOCYTES # (AUTO) 0.8 X 10^3 (0.0-1.0); MONOCYTES % (AUTO) 8 % (0-12); NEUTROPHILS # (AUTO) 8.3 X 10^3 (1.8-7.8); NEUTROPHILS % (AUTO) 85 % (42-75); PLATELET COUNT 198 10^3/uL (130-400); RED CELL DISTRIBUTION WIDTH 12.5 % (10.0-14.5); WHITE BLOOD COUNT 9.8 10^3/uL (4.3-11.0)
[2016-04-09 05:28] LABS: ABG BASE EXCESS 12.2 MMOL/L (-2.5-2.5); ABG HCO3 39 MMOL/L (23-27); ABG OXYGEN SATURATION 95 % (94-100); ABG PCO2 60 MMHG (35-45); ABG PH 7.42 (7.37-7.43); ABG PO2 71 MMHG (79-93); ABG TCO2 40.5 MMOL/L (21.0-31.0)
[2016-04-09 05:29] LABS: ALLENS TEST YES-POS; PATIENT TEMP 97.7
[2016-04-09] MEDS: fentaNYL INJECTION 100 MCG/2 ML AMP IVP PRN ×4 (05:29→23:18)
[2016-04-09 05:36] LABS: CALCIUM 8.4 MG/DL (8.5-10.1); CREATININE SERUM 1.33 MG/DL (0.60-1.30); MAGNESIUM 1.8 MG/DL (1.8-2.4); PHOSPHORUS 3.1 MG/DL (2.3-4.7); POTASSIUM 3.8 MMOL/L (3.6-5.0)
[2016-04-09] MEDS: FUROSEMIDE 40 MG/4 ML INJ (LASIX) IVP SCH ×2 (06:34→18:39)
[2016-04-09] MEDS: RT-BUDESONIDE NEBS 0.5 MG/2ML (PULMICORT) AMP INH SCH ×2 (07:19→20:03)
[2016-04-09] MEDS: NICOTINE PATCH REMOVAL TP SCH (08:28)
[2016-04-09] MEDS: PANTOPRAZOLE 40 MG/10 ML (PROTONIX) VIAL IV SCH ×2 (08:28→20:11)
[2016-04-09] MEDS: PIPERACILLIN SODIUM/TAZOBACTAM 4.5 GM in NS (IVPB) 100 ML IV SCH ×2 (08:28→15:37)
[2016-04-09] MEDS: NICOTINE 21 MG (NICODERM) PATCH TD SCH (08:28)
[2016-04-09] MEDS: BISACODYL 10 MG SUPP (DULCOLAX) PR SCH ×2 (08:28→20:13)
[2016-04-09] MEDS: 1/2 NS IV SOLUTION 1,000 ML IV SCH (08:36)
--- NOTE | 2016-04-09 09:05 | Physical Therapy Progress Note ---
Therapy Progress Note Pt. in bed with BiPap in place, pt. opens eyes to therapist and shakes his head 'yes' to therapy. During conversation with nurse, pt. pulls off the bipap and O2 sats immediately drop to low 80's. Nurse requests to hold therapy due to pt. 's mental status and poor tolerance with mobility. 1, visit 0850 REJI CHOW PT Apr 09, 2016 09:05
[2016-04-09] MEDS ORDERED: HALOPERIDOL 5 MG/ML (HALDOL) AMP ONE (10:46)
[2016-04-09] MEDS: LORazepam INJ 2 MG/ML (ATIVAN) VIAL IVP PRN ×2 (10:50→17:49)
--- NOTE | 2016-04-09 11:04 | Progress Note (SOAP) ---
Subjective Subjective/Events-last exam Fwup small bowel obstruction--S/P exploratory lab with small bowel resection and reanastamosis, acute renal failure--worsened since surgery, dehydration, COPD, Atrial fibrillation with RVR, Post-op VDRF with aspiration pneumonia. Back on BIPAP--agitated this AM but on precedex so drip increased and given IV ativan and has calmed down. Has had 3 BMs. Objective Exam Vital Signs Date Time Temp Pulse Resp B/P Pulse Ox O2 Delivery O2 Flow Rate FiO2 04/09/16 10:26 80 36 100 30.00 04/09/16 08:59 77 29 94 30.00 04/09/16 08:25 96.5 84 37 160/97 95 NIV/Bilevel 30.00 04/09/16 07:19 96 30 04/09/16 07:00 81 04/09/16 06:34 75 04/09/16 06:31 75 35 93 30.00 04/09/16 06:00 78 33 135/88 92 NIV/Bilevel 30.00 04/09/16 05:00 82 38 128/85 95 NIV/Bilevel 30.00 04/09/16 04:04 96 37 94 30.00 04/09/16 04:00 97.7 80 34 147/83 95 NIV/Bilevel 30.00 04/09/16 04:00 94 30.00 30 04/09/16 03:00 86 37 134/85 92 NIV/Bilevel 30.00 04/09/16 02:11 91 38 92 30.00 04/09/16 02:00 85 38 133/79 90 NIV/Bilevel 30.00 04/09/16 01:02 45 126/80 93 04/09/16 01:00 92 04/09/16 01:00 92 45 127/77 93 NIV/Bilevel 30.00 04/09/16 00:00 94 30.00 30 04/09/16 00:00 97.0 04/09/16 00:00 90 41 93 30.00 04/09/16 00:00 91 43 117/49 93 NIV/Bilevel 30.00 04/08/16 23:00 92 40 132/80 93 NIV/Bilevel 30.00 04/08/16 22:04 102 40 93 30.00 04/08/16 22:00 107 39 108/69 95 NIV/Bilevel 30.00 04/08/16 21:23 NIV/Bilevel 30.00 04/08/16 21:00 116 34 155/79 100 High Flow NC 70.00 14.00 04/08/16 20:56 28 04/08/16 20:00 96 30.00 70 04/08/16 20:00 99.6 109 39 164/89 94 High Flow NC 70.00 14.00 04/08/16 19:55 100 14.00 70 04/08/16 19:00 101 20 179/96 97 High Flow NC 70.00 14.00 04/08/16 19:00 105 04/08/16 18:32 102 28 91 30.00 04/08/16 18:00 105 49 160/94 97 NIV/Bilevel 30.00 04/08/16 17:45 93 36 159/85 93 NIV/Bilevel 30.00 04/08/16 16:29 92 32 99 35.00 04/08/16 16:00 97 30 04/08/16 16:00 98.0 NIV/Bilevel 30.00 04/08/16 16:00 98 32 148/80 96 NIV/Bilevel 30.00 04/08/16 15:00 104 31 150/103 99 NIV/Bilevel 40.00 04/08/16 14:00 101 34 152/95 100 NIV/Bilevel 40.00 04/08/16 13:50 101 38 100 40.00 04/08/16 13:00 107 04/08/16 12:45 111 38 149/80 95 NIV/Bilevel 40.00 04/08/16 12:00 97 40 04/08/16 12:00 99.0 NIV/Bilevel 40.00 04/08/16 11:09 114 21 99 40.00 04/08/16 11:00 114 38 150/92 95 Nasal Cannula 4.00 I & O 04/09/16 07:00 Intake Total 400 ml Output Total 5800 ml Balance -5400 ml Capillary Refill : General Appearance: Moderate Distress (agitated) Respiratory: Lungs Clear Decreased Breath Sounds Cardiovascular: Systolic Murmur Tachycardia Gastrointestinal: normal bowel sounds non tender soft Extremity: Non Tender No Calf Tenderness No Pedal Edema Neurologic/Psychiatric: Alert Skin: Pallor Results Lab Laboratory Tests 04/09/16 05:00: Anion Gap 11, BUN/Creatinine Ratio 24, Basophils # (Auto) 0.0, Basophils (%) ( Auto) 0, Blood Urea Nitrogen 32H, Calcium Level 8.4L, Carbon Dioxide Level 36H, Chloride Level 110H, Creatinine 1.33H, Eosinophils # (Auto) 0.1, Eosinophils (% ) (Auto) 1, Estimat Glomerular Filtration Rate 55, Glucose Level 168H, Hematocrit 32L, Hemoglobin 9.9L, Lymphocytes # (Auto) 0.6L, Lymphocytes (%) ( Auto) 6L, Magnesium Level 1.8, Mean Corpuscular Hemoglobin 33, Mean Corpuscular Hemoglobin Concent 31L, Mean Corpuscular Volume 107H, Mean Platelet Volume 10.0 , Monocytes # (Auto) 0.8, Monocytes (%) (Auto) 8, Neutrophils # (Auto) 8.3H, Neutrophils (%) (Auto) 85H, Phosphorus Level 3.1, Platelet Count 198, Potassium Level 3.8, Red Blood Count 3.00L, Red Cell Distribution Width 12.5, Sodium Level 157H, White Blood Count 9.8 04/09/16 05:25: Aubrey Test YES-POS, Arterial Blood Base Excess 12.2H, Arterial Blood HCO3 39H, Arterial Blood Oxygen Saturation 95, Arterial Blood Partial Pressure CO2 60H, Arterial Blood Partial Pressure O2 71L, Arterial Blood Total CO2 40.5H, Arterial Blood pH 7.42, Blood Gas Inspired Oxygen 30% BIPAP, Blood Gas Patient Temperature 97.7, Blood Gas Puncture Site L RAD, Blood Gas Ventilator Setting NO Microbiology 04/05/16 Blood Culture - Preliminary, Resulted No growth 04/04/16 Gram Stain - Final, Complete 04/04/16 Sputum Culture - Final, Complete Klebsiella Oxytoca 03/29/16 Urine Culture - Final, Complete Assessment/Plan Assessment/Plan Assess & Plan/Chief Complaint 1. Small Bowel Obstruction--S/P exploratory lap by Dr. Stephens with SARAH and small bowel resection with re-anastamosis and post-op complications of aspiration pneumonia and bilateral inguinal hernias having to be reduced--post- op ileus--NG tube still in place but has had 3 BMs so will see if can DC per surgery 2. Acute Renal Failure/Dehydration--worsened since surgery but Cr improved this AM 3. Acute Respiratory Failure with Post-op Aspiration--WBC count improving, on Zosyn and Vanc, off ventilator--CXR looks improved, on BIPAP with FiO2 of 30% 4. Hypomagnesemia--on magnesium replacement protocol, stable 5. Atrial Fibrillation with RVR--back in NSR but tachycardic so continue on IV lopressor Diagnosis/Problems: Clinical Quality Measures DVT/VTE Risk/Contraindication: Risk Factor Score Per Nursin RFS Level Per Nursing on Admit: 4+=Very High AIME CANO DO Apr 09, 2016 11:04 am
--- NOTE | 2016-04-09 11:06 | Diagnostic Imaging Report ---
INDICATION: ICU followup. COMPARISON: 04/08/2016. FINDINGS: NG tube and left PICC line remain in good position. There is obstructive lung disease with flattening of diaphragm. There has been some decrease in bilateral pleural effusions. There continues to be some mild infiltrate in the right midlung with fluid within the fissure. The heart is not enlarged. Median sternotomy changes noted. No evidence of pulmonary edema. IMPRESSION: 1. Obstructive interstitial lung disease with decreasing pleural effusions and decreasing infiltrates when compared with previous exam. Dictated by: Dictated on workstation # [id number]
--- NOTE | 2016-04-09 11:21 | Progress Note-Cardiology ---
Cardiology SOAP Progress Note Subjective: Confused Not able to provide any meaningful history at bedside Objective: I&O/Vital Signs Vital Sign - Last 12Hours 04/09/16 04/09/16 04/09/16 04/09/16 00:00 00:00 00:00 00:00 Temp 97.0 Pulse 91 90 Resp 43 41 B/P 117/49 Pulse Ox 93 93 94 O2 Delivery NIV/Bilevel O2 Flow Rate 30.00 30.00 30.00 FiO2 30 04/09/16 04/09/16 04/09/16 04/09/16 01:00 01:00 01:02 02:00 Pulse 92 92 85 Resp 45 45 38 B/P 127/77 126/80 133/79 Pulse Ox 93 93 90 O2 Delivery NIV/Bilevel NIV/Bilevel O2 Flow Rate 30.00 30.00 04/09/16 04/09/16 04/09/16 04/09/16 02:11 03:00 04:00 04:00 Temp 97.7 Pulse 91 86 80 Resp 38 37 34 B/P 134/85 147/83 Pulse Ox 92 92 94 95 O2 Delivery NIV/Bilevel NIV/Bilevel O2 Flow Rate 30.00 30.00 30.00 30.00 FiO2 30 04/09/16 04/09/16 04/09/16 04/09/16 04:04 05:00 06:00 06:31 Pulse 96 82 78 75 Resp 37 38 33 35 B/P 128/85 135/88 Pulse Ox 94 95 92 93 O2 Delivery NIV/Bilevel NIV/Bilevel O2 Flow Rate 30.00 30.00 30.00 30.00 04/09/16 04/09/16 04/09/16 04/09/16 06:34 07:00 07:19 08:25 Temp 96.5 Pulse 75 81 84 Resp 37 B/P 160/97 Pulse Ox 96 95 O2 Delivery NIV/Bilevel O2 Flow Rate 30.00 FiO2 30 04/09/16 04/09/16 08:59 10:26 Pulse 77 80 Resp 29 36 Pulse Ox 94 100 O2 Flow Rate 30.00 30.00 Intake and Output 04/09/16 00:00 Intake Total 200 ml Output Total 4400 ml Balance -4200 ml Weight (Pounds): 183 Weight (Ounces): 4.0 Weight (Calculated Kilograms): 83.009080 Constitutional: No apparent distress, well-developed Respiratory: chest expansion is symmetric chest is bilaterally symmetric crackles wheezing (scattered) Cardiovascular: regular rate-rhythm (tachycardic)No JVD, S1 and S2 systolic murmur Gastrointestional: other (post surgical abdomen; NG tube in place) Genital/Rectal: other (Urinary catheter to DD; clear, yellow urine) Extremities: no lower extremity edema bilateral Neurologic/Psychiatric: grossly intact Results/Procedures: Labs Laboratory Tests 04/09/16 05:00: Anion Gap 11, BUN/Creatinine Ratio 24, Basophils # (Auto) 0.0, Basophils (%) ( Auto) 0, Blood Urea Nitrogen 32H, Calcium Level 8.4L, Carbon Dioxide Level 36H, Chloride Level 110H, Creatinine 1.33H, Eosinophils # (Auto) 0.1, Eosinophils (% ) (Auto) 1, Estimat Glomerular Filtration Rate 55, Glucose Level 168H, Hematocrit 32L, Hemoglobin 9.9L, Lymphocytes # (Auto) 0.6L, Lymphocytes (%) ( Auto) 6L, Magnesium Level 1.8, Mean Corpuscular Hemoglobin 33, Mean Corpuscular Hemoglobin Concent 31L, Mean Corpuscular Volume 107H, Mean Platelet Volume 10.0 , Monocytes # (Auto) 0.8, Monocytes (%) (Auto) 8, Neutrophils # (Auto) 8.3H, Neutrophils (%) (Auto) 85H, Phosphorus Level 3.1, Platelet Count 198, Potassium Level 3.8, Red Blood Count 3.00L, Red Cell Distribution Width 12.5, Sodium Level 157H, White Blood Count 9.8 04/09/16 05:25: Aubrey Test YES-POS, Arterial Blood Base Excess 12.2H, Arterial Blood HCO3 39H, Arterial Blood Oxygen Saturation 95, Arterial Blood Partial Pressure CO2 60H, Arterial Blood Partial Pressure O2 71L, Arterial Blood Total CO2 40.5H, Arterial Blood pH 7.42, Blood Gas Inspired Oxygen 30% BIPAP, Blood Gas Patient Temperature 97.7, Blood Gas Puncture Site L RAD, Blood Gas Ventilator Setting NO Microbiology 04/05/16 Blood Culture - Preliminary, Resulted No growth 04/04/16 Gram Stain - Final, Complete 04/04/16 Sputum Culture - Final, Complete Klebsiella Oxytoca 03/29/16 Urine Culture - Final, Complete Laboratory Tests 04/08/16 06:05 04/09/16 05:00 A/P: Assessment: Acute respiratory failure, management by ICU and Medical Services Sepsis - management by ICU and Medical Se Small bowel obstruction, status post exploratory laparotomy, recovering slowly, managed by Dr. Stephens Acute on chronic renal failure, slowly improving Paroxysmal atrial fibrillation, currently in NSR [id number] score of 5, yearly risk of stroke without OAC is 6.7% Echo of 03/31/16: LVEF 60%, mild mitral and tricusp regurg, ?echogenic density in the [place] for which Dr Juárez has recommended DIAN when clinically more stable CAD- history of CABG x 1 last year, done at [place] SHAYNA- history of bilat CEA in the past by Dr. Spencer Hx of CVA COPD History of pulmonary hypertension Tobaccoism Hypernatremia, possibly related to TPN, management by ICU and Medical Services Plan: * Remains critically ill * Complex management due to multiple comorbidities * Continue iv beta-roya, as tolerated * Increase Lovenox to stroke prophylaxis dose when OK with the Surgical and Medical Services * Monitor labs and clinical status closely * I spoke with his and answered questions RACEHL RAVI MD FACP FAC CCDS Apr 09, 2016 11:21
--- NOTE | 2016-04-09 13:25 | Progress Note ---
Subjective Subjective/Events-last exam Pt seen and examined, mostly sedated because started on Precedex to stop him from pulling Bi-Pap off. NGT output is very minimal. Had 3 BM's yesterday. Review of Systems General: No Night Sweats, Fatigue Pulmonary: Dyspnea Cough Cardiovascular: No: Chest Pain Gastrointestinal: No: Nausea, Vomiting Neurological: : Weakness Objective Exam Vital Signs Date Time Temp Pulse Resp B/P Pulse Ox O2 Delivery O2 Flow Rate FiO2 04/09/16 12:18 97.2 88 39 152/90 98 Room Air 30.00 04/09/16 12:15 97.2 88 39 152/90 98 NIV/Bilevel 30.00 04/09/16 10:26 80 36 100 30.00 04/09/16 08:59 77 29 94 30.00 04/09/16 08:25 96.5 84 37 160/97 95 NIV/Bilevel 30.00 04/09/16 07:19 96 30 04/09/16 07:00 81 04/09/16 06:34 75 04/09/16 06:31 75 35 93 30.00 04/09/16 06:00 78 33 135/88 92 NIV/Bilevel 30.00 04/09/16 05:00 82 38 128/85 95 NIV/Bilevel 30.00 04/09/16 04:04 96 37 94 30.00 04/09/16 04:00 97.7 80 34 147/83 95 NIV/Bilevel 30.00 04/09/16 04:00 94 30.00 30 04/09/16 03:00 86 37 134/85 92 NIV/Bilevel 30.00 04/09/16 02:11 91 38 92 30.00 04/09/16 02:00 85 38 133/79 90 NIV/Bilevel 30.00 04/09/16 01:02 45 126/80 93 04/09/16 01:00 92 04/09/16 01:00 92 45 127/77 93 NIV/Bilevel 30.00 04/09/16 00:00 94 30.00 30 04/09/16 00:00 97.0 04/09/16 00:00 90 41 93 30.00 04/09/16 00:00 91 43 117/49 93 NIV/Bilevel 30.00 04/08/16 23:00 92 40 132/80 93 NIV/Bilevel 30.00 04/08/16 22:04 102 40 93 30.00 04/08/16 22:00 107 39 108/69 95 NIV/Bilevel 30.00 04/08/16 21:23 NIV/Bilevel 30.00 04/08/16 21:00 116 34 155/79 100 High Flow NC 70.00 14.00 04/08/16 20:56 28 04/08/16 20:00 96 30.00 70 04/08/16 20:00 99.6 109 39 164/89 94 High Flow NC 70.00 14.00 04/08/16 19:55 100 14.00 70 04/08/16 19:00 101 20 179/96 97 High Flow NC 70.00 14.00 04/08/16 19:00 105 04/08/16 18:32 102 28 91 30.00 04/08/16 18:00 105 49 160/94 97 NIV/Bilevel 30.00 04/08/16 17:45 93 36 159/85 93 NIV/Bilevel 30.00 04/08/16 16:29 92 32 99 35.00 04/08/16 16:00 97 30 04/08/16 16:00 98.0 NIV/Bilevel 30.00 04/08/16 16:00 98 32 148/80 96 NIV/Bilevel 30.00 04/08/16 15:00 104 31 150/103 99 NIV/Bilevel 40.00 04/08/16 14:00 101 34 152/95 100 NIV/Bilevel 40.00 04/08/16 13:50 101 38 100 40.00 I & O 04/09/16 07:00 Intake Total 400 ml Output Total 5800 ml Balance -5400 ml Capillary Refill : General Appearance: Mild Distress (Bi-Pap on) HEENT: PERRL/EOMI Neck: Supple Respiratory: Accessory Muscle Use Decreased Breath Sounds Cardiovascular: Regular Rate, Rhythm Systolic Murmur Gastrointestinal: normal bowel sounds non tender soft other (serous fluid is leaking out of incision, otherwise intact and clean) Extremity: Non Tender No Calf Tenderness No Pedal Edema Skin: Pallor Lymphatic: No Adenopathy Results Lab Laboratory Tests 04/09/16 05:00: Anion Gap 11, BUN/Creatinine Ratio 24, Basophils # (Auto) 0.0, Basophils (%) ( Auto) 0, Blood Urea Nitrogen 32H, Calcium Level 8.4L, Carbon Dioxide Level 36H, Chloride Level 110H, Creatinine 1.33H, Eosinophils # (Auto) 0.1, Eosinophils (% ) (Auto) 1, Estimat Glomerular Filtration Rate 55, Glucose Level 168H, Hematocrit 32L, Hemoglobin 9.9L, Lymphocytes # (Auto) 0.6L, Lymphocytes (%) ( Auto) 6L, Magnesium Level 1.8, Mean Corpuscular Hemoglobin 33, Mean Corpuscular Hemoglobin Concent 31L, Mean Corpuscular Volume 107H, Mean Platelet Volume 10.0 , Monocytes # (Auto) 0.8, Monocytes (%) (Auto) 8, Neutrophils # (Auto) 8.3H, Neutrophils (%) (Auto) 85H, Phosphorus Level 3.1, Platelet Count 198, Potassium Level 3.8, Red Blood Count 3.00L, Red Cell Distribution Width 12.5, Sodium Level 157H, White Blood Count 9.8 04/09/16 05:25: Aubrey Test YES-POS, Arterial Blood Base Excess 12.2H, Arterial Blood HCO3 39H, Arterial Blood Oxygen Saturation 95, Arterial Blood Partial Pressure CO2 60H, Arterial Blood Partial Pressure O2 71L, Arterial Blood Total CO2 40.5H, Arterial Blood pH 7.42, Blood Gas Inspired Oxygen 30% BIPAP, Blood Gas Patient Temperature 97.7, Blood Gas Puncture Site L RAD, Blood Gas Ventilator Setting NO Microbiology 04/05/16 Blood Culture - Preliminary, Resulted No growth 04/04/16 Gram Stain - Final, Complete 04/04/16 Sputum Culture - Final, Complete Klebsiella Oxytoca 03/29/16 Urine Culture - Final, Complete Assessment/Plan Assessment/Plan Assessment/Plan 1. Small Bowel Obstruction--S/P SARAH and small bowel resection with re- anastamosis and post-op complications of aspiration pneumonia and bilateral inguinal hernias having to be reduced--post-op ileus-- will clamp NG tube for 6 hours and if less than 200cc residual will D/C. Would start pt on clears, once he is alerat and can take Bi-Pap off 2. Acute Renal Failure/Dehydration--worsened since surgery but Cr improved this AM 3. Acute Respiratory Failure with Post-op Aspiration--WBC count normal : Zosyn and Vanc, off ventilator--CXR looks improved, on BIPAP with FiO2 of 30% 4. Hypomagnesemia--on magnesium replacement protocol, stable 5. Atrial Fibrillation with RVR--back in NSR continue on IV lopressor Clinical Quality Measures DVT/VTE Risk/Contraindication: Risk Factor Score Per Nursin RFS Level Per Nursing on Admit: 4+=Very High VINICIUS HILL DO Apr 09, 2016 13:25 VINICIUS HILL DO Apr 09, 2016 13:25
[2016-04-09] MEDS: [UNRECOGNIZED DRUG - OTHER] IV SCH ×11 (18:39)
[2016-04-09] MEDS: SODIUM ACETATE IV SCH ×11 (18:39)
[2016-04-09] MEDS: SODIUM PHOSPHATE IV SCH ×11 (18:39)
[2016-04-09] MEDS: POTASSIUM CHLORIDE IV SCH ×11 (18:39)
[2016-04-09] MEDS: ENOXAPARIN 40 MG/0.4 ML (LOVENOX) SYR SC SCH (20:12)
[2016-04-10] VITALS (39 sets, daily range): BP systolic 97–176; BP diastolic 67–102
[2016-04-10] MEDS: meTOprolol 5 MG/5 ML (LOPRESSOR) VIAL IV SCH ×9 (00:06→23:51)
[2016-04-10] MEDS: PIPERACILLIN SODIUM/TAZOBACTAM 4.5 GM in NS (IVPB) 100 ML IV SCH ×4 (00:06→23:51)
[2016-04-10] MEDS: DEXMEDETOMIDINE 400 MCG/100 ML IV SCH ×4 (00:08→18:16)
[2016-04-10] MEDS: [UNRECOGNIZED DRUG - OTHER] IV SCH ×4 (00:08→18:16)
[2016-04-10] MEDS: LORazepam INJ 2 MG/ML (ATIVAN) VIAL IVP PRN (01:17)
[2016-04-10] MEDS: RT-ALBUTEROL/IPRATROPIUM 3 ML (DUONEB) VIAL INH SCH ×6 (02:04→22:06)
[2016-04-10 04:35] LABS: BASOPHILS % (AUTO) 0 % (0-10); EOSINOPHILS # (AUTO) 0.2 10^3/uL (0.0-0.3); EOSINOPHILS % (AUTO) 2 % (0-10); LYMPHOCYTES # (AUTO) 0.9 X 10^3 (1.0-4.0); LYMPHOCYTES % (AUTO) 10 % (12-44); MEAN CORPUSCULAR HEMOGLOBIN 33 PG (25-34); MEAN CORPUSCULAR HGB CONC 30 G/DL (32-36); MEAN CORPUSCULAR VOLUME 109 FL (80-99); MEAN PLATELET VOLUME 10.8 FL (7.4-10.4); MONOCYTES # (AUTO) 0.6 X 10^3 (0.0-1.0); MONOCYTES % (AUTO) 7 % (0-12); NEUTROPHILS # (AUTO) 7.2 X 10^3 (1.8-7.8); NEUTROPHILS % (AUTO) 81 % (42-75); PLATELET COUNT 193 10^3/uL (130-400); RED BLOOD COUNT 3.16 10^6/uL (4.35-5.85); RED CELL DISTRIBUTION WIDTH 12.3 % (10.0-14.5); WHITE BLOOD COUNT 8.8 10^3/uL (4.3-11.0)
[2016-04-10 04:57] LABS: ABG BASE EXCESS 19.3 MMOL/L (-2.5-2.5); ABG OXYGEN SATURATION 95 % (94-100); ABG PCO2 64 MMHG (35-45); ABG PH 7.47 (7.37-7.43); ABG PO2 68 MMHG (79-93); ABG TCO2 47.9 MMOL/L (21.0-31.0)
[2016-04-10 04:58] LABS: ALLENS TEST YES-POS; PATIENT TEMP 98.2
[2016-04-10 05:02] LABS: ABG HCO3 46 MMOL/L (23-27)
[2016-04-10 05:36] LABS: CALCIUM 8.9 MG/DL (8.5-10.1); CREATININE SERUM 1.28 MG/DL (0.60-1.30); MAGNESIUM 1.6 MG/DL (1.8-2.4); POTASSIUM 3.3 MMOL/L (3.6-5.0)
[2016-04-10] MEDS ORDERED: DEXTROSE 10% IV SOLUTION 1,000 ML IV ONE (06:12)
[2016-04-10] MEDS ORDERED: MAGNESIUM 1 GM/100 ML IVPB 100 ML IV ONE (06:19)
[2016-04-10] MEDS: FUROSEMIDE 40 MG/4 ML INJ (LASIX) IVP SCH (06:24)
[2016-04-10] MEDS ORDERED: MAGNESIUM 1 GM/D5W 100 ML IVPB IV SCH ×2 (06:45→08:00)
[2016-04-10] MEDS ORDERED: POTASSIUM CL 10 MEQ/50 ML IVPB (PRE-MIX) IV SCH (06:45)
[2016-04-10] MEDS: DEXTROSE 10% IV SOLUTION 1,000 ML IV SCH (06:45)
[2016-04-10] MEDS: RT-BUDESONIDE NEBS 0.5 MG/2ML (PULMICORT) AMP INH SCH ×2 (06:56→19:30)
[2016-04-10] MEDS: POTASSIUM CHLORIDE IV SCH ×13 (08:25→16:39)
[2016-04-10] MEDS: 1/2 NS IV SOLUTION 1,000 ML IV SCH (08:25)
[2016-04-10] MEDS: D5W IV SCH ×3 (08:25→11:32)
[2016-04-10] MEDS: PANTOPRAZOLE 40 MG/10 ML (PROTONIX) VIAL IV SCH ×2 (08:26→20:44)
[2016-04-10] MEDS: NICOTINE PATCH REMOVAL TP SCH (08:26)
[2016-04-10] MEDS: NICOTINE 21 MG (NICODERM) PATCH TD SCH (08:26)
[2016-04-10] MEDS: BISACODYL 10 MG SUPP (DULCOLAX) PR SCH ×2 (08:27→20:45)
--- NOTE | 2016-04-10 09:00 | Progress Note (SOAP) ---
Subjective Subjective/Events-last exam Fwup small bowel obstruction--S/P exploratory lab with small bowel resection and reanastamosis, acute renal failure--worsened since surgery, dehydration, COPD, Atrial fibrillation with RVR, Post-op VDRF with aspiration pneumonia. NG tube out and still on BIPAP but FiO2 had to be increased last night to 45%-- down to 35% this AM. Also, TPN stopped due to hypernatremia and now on D10. Objective Exam Vital Signs Date Time Temp Pulse Resp B/P Pulse Ox O2 Delivery O2 Flow Rate FiO2 04/10/16 07:51 98.2 92 30 116/76 93 NIV/Bilevel 35.00 04/10/16 07:00 66 04/10/16 06:58 66 28 97 35.00 04/10/16 06:56 66 28 97 35.00 04/10/16 06:30 67 28 162/93 96 NIV/Bilevel 35.00 04/10/16 06:00 64 29 176/101 95 NIV/Bilevel 35.00 04/10/16 05:30 66 30 176/102 95 NIV/Bilevel 35.00 04/10/16 05:00 67 30 166/98 95 NIV/Bilevel 35.00 04/10/16 04:30 80 31 176/96 95 NIV/Bilevel 35.00 04/10/16 04:18 75 31 94 40.00 04/10/16 04:05 94 40 04/10/16 04:00 98.2 78 31 154/94 91 NIV/Bilevel 35.00 04/10/16 03:30 78 28 153/96 93 NIV/Bilevel 35.00 04/10/16 03:00 83 28 133/89 92 NIV/Bilevel 35.00 04/10/16 02:10 78 31 95 NIV/Bilevel 35.00 04/10/16 02:06 73 34 98 40.00 04/10/16 02:00 73 31 148/90 99 NIV/Bilevel 40.00 04/10/16 01:30 79 34 128/84 97 NIV/Bilevel 40.00 04/10/16 01:00 74 29 154/99 97 NIV/Bilevel 40.00 04/10/16 01:00 74 04/10/16 00:30 80 28 149/94 95 NIV/Bilevel 40.00 04/10/16 00:11 84 29 95 40.00 04/10/16 00:08 86 31 127/87 NIV/Bilevel 40.00 04/10/16 00:05 94 40 04/10/16 00:00 98.2 88 31 127/87 94 NIV/Bilevel 40.00 04/09/16 23:30 96 32 102/71 92 NIV/Bilevel 40.00 04/09/16 23:00 102 39 114/83 94 NIV/Bilevel 40.00 04/09/16 22:40 79 35 97 40.00 04/09/16 22:00 84 34 134/94 97 NIV/Bilevel 40.00 04/09/16 21:21 85 34 140/95 89 NIV/Bilevel 40.00 04/09/16 21:00 90 42 128/82 NIV/Bilevel 30.00 04/09/16 20:13 82 35 140/84 93 NIV/Bilevel 04/09/16 20:10 81 35 137/88 94 NIV/Bilevel 30.00 04/09/16 20:03 99 34 92 45.00 04/09/16 20:00 98.9 81 33 140/84 99 NIV/Bilevel 45.00 04/09/16 20:00 98 45 04/09/16 19:00 82 35 135/80 93 NIV/Bilevel 45.00 04/09/16 19:00 82 04/09/16 18:25 92 42 92 30.00 04/09/16 18:00 89 39 122/80 93 NIV/Bilevel 30.00 04/09/16 17:00 70 35 100/61 92 NIV/Bilevel 30.00 04/09/16 16:06 97.0 73 34 156/88 93 Room Air 30.00 04/09/16 16:05 97.1 04/09/16 16:05 93 30 04/09/16 16:04 80 35 93 30.00 04/09/16 16:00 73 33 160/90 92 NIV/Bilevel 30.00 04/09/16 15:00 86 39 147/88 98 NIV/Bilevel 30.00 04/09/16 14:00 73 34 136/77 97 NIV/Bilevel 30.00 04/09/16 13:39 81 34 98 30.00 04/09/16 13:00 87 04/09/16 13:00 85 36 142/83 95 NIV/Bilevel 30.00 04/09/16 12:18 97.2 88 39 152/90 98 Room Air 30.00 04/09/16 12:15 97.2 88 39 152/90 98 NIV/Bilevel 30.00 04/09/16 12:00 94 30 04/09/16 11:00 94 41 152/95 92 NIV/Bilevel 30.00 04/09/16 10:26 80 36 100 30.00 04/09/16 10:00 80 36 153/82 96 NIV/Bilevel 30.00 04/09/16 09:00 76 35 145/88 94 NIV/Bilevel 30.00 04/09/16 08:59 77 29 94 30.00 I & O 04/10/16 07:00 Intake Total 1855 ml Output Total 5578 ml Balance -3723 ml Capillary Refill : General Appearance: Mild Distress Neck: Supple Respiratory: Crackles (right) Decreased Breath Sounds (especially left base) Cardiovascular: Regular Rate, Rhythm Systolic Murmur Gastrointestinal: normal bowel sounds non tender soft other (dressing in place and dry) Extremity: Non Tender No Calf Tenderness No Pedal Edema Other (SCDs in place) Neurologic/Psychiatric: Other (sedated) Skin: Pallor Results Lab Laboratory Tests 04/10/16 04:19: Anion Gap 11, BUN/Creatinine Ratio 24, Basophils # (Auto) 0.0, Basophils (%) ( Auto) 0, Blood Urea Nitrogen 31H, Calcium Level 8.9, Carbon Dioxide Level 43H, Chloride Level 106, Creatinine 1.28, Eosinophils # (Auto) 0.2, Eosinophils (%) ( Auto) 2, Estimat Glomerular Filtration Rate 58, Glucose Level 158H, Hematocrit 34L, Hemoglobin 10.4L, Lymphocytes # (Auto) 0.9L, Lymphocytes (%) (Auto) 10L, Magnesium Level 1.6L, Mean Corpuscular Hemoglobin 33, Mean Corpuscular Hemoglobin Concent 30L, Mean Corpuscular Volume 109H, Mean Platelet Volume 10.8H , Monocytes # (Auto) 0.6, Monocytes (%) (Auto) 7, Neutrophils # (Auto) 7.2, Neutrophils (%) (Auto) 81H, Phosphorus Level 3.0, Platelet Count 193, Potassium Level 3.3L, Red Blood Count 3.16L, Red Cell Distribution Width 12.3, Sodium Level 160*H, White Blood Count 8.8 04/10/16 04:52: Aubrey Test YES-POS, Arterial Blood Base Excess 19.3H, Arterial Blood HCO3 46*H, Arterial Blood Oxygen Saturation 95, Arterial Blood Partial Pressure CO2 64H, Arterial Blood Partial Pressure O2 68L, Arterial Blood Total CO2 47.9H, Arterial Blood pH 7.47H, Blood Gas Inspired Oxygen 35% BIPAP, Blood Gas Patient Temperature 98.2, Blood Gas Puncture Site R BRACH, Blood Gas Ventilator Setting NO 04/10/16 06:46: Glucometer 143H 04/10/16 07:22: Glucometer 150H Microbiology 04/05/16 Blood Culture - Preliminary, Resulted No growth 04/04/16 Gram Stain - Final, Complete 04/04/16 Sputum Culture - Final, Complete Klebsiella Oxytoca 03/29/16 Urine Culture - Final, Complete Assessment/Plan Assessment/Plan Assess & Plan/Chief Complaint 1. Small Bowel Obstruction--S/P exploratory lap by Dr. Stephens with SARAH and small bowel resection with re-anastamosis and post-op complications of aspiration pneumonia and bilateral inguinal hernias having to be reduced--post- op ileus--NG tube out 2. Acute Renal Failure/Dehydration-- Cr improving 3. Acute Respiratory Failure with Post-op Aspiration--WBC count improving, on Zosyn, off ventilator--CXR looks little worse, on BIPAP with FiO2 of 35% but having difficulty getting accurate O2 sat and ABG little worse today--Dr. Mcdaniel will be in to assess patient 4. Hypomagnesemia--on magnesium replacement protocol, stable 5. Atrial Fibrillation with RVR--back in NSR but tachycardic so continue on IV lopressor 6. Hypernatremia--TPN on hold with D10 started 7. Hypokalemia--on potassium replacement Diagnosis/Problems: Clinical Quality Measures DVT/VTE Risk/Contraindication: Risk Factor Score Per Nursin RFS Level Per Nursing on Admit: 4+=Very High AIME CANO DO Apr 10, 2016 8:59 am
--- NOTE | 2016-04-10 09:14 | Diagnostic Imaging Report ---
INDICATION: Patient on BiPAP. Comparison with 04/09/2016. FINDINGS: Obstructive interstitial lung disease again noted. There is increased air trapping on today's exam. Bilateral interstitial infiltrates are present. There has been some increase in the density of the infiltrate in the right lung base since previous exam. The heart remains upper limits of normal. No evidence of pulmonary edema. Median sternotomy changes. Left PICC line remains in good position. IMPRESSION: 1. Obstructive interstitial lung disease showing increased air trapping today. 2. There does appear to be increasing infiltrate in right lung base when compared with previous study. Dictated by: Dictated on workstation # [id number]
--- NOTE | 2016-04-10 12:38 | Progress Note-Cardiology ---
Cardiology SOAP Progress Note Subjective: Confused, intermittently agitated, on BPAP Unable to provide any history Objective: I&O/Vital Signs Vital Sign - Last 12Hours 04/10/16 04/10/16 04/10/16 04/10/16 01:00 01:00 01:30 02:00 Pulse 74 74 79 73 Resp 29 34 31 B/P 154/99 128/84 148/90 Pulse Ox 97 97 99 O2 Delivery NIV/Bilevel NIV/Bilevel NIV/Bilevel O2 Flow Rate 40.00 40.00 40.00 04/10/16 04/10/16 04/10/16 04/10/16 02:06 02:10 03:00 03:30 Pulse 73 78 83 78 Resp 34 31 28 28 B/P 133/89 153/96 Pulse Ox 98 95 92 93 O2 Delivery NIV/Bilevel NIV/Bilevel NIV/Bilevel O2 Flow Rate 40.00 35.00 35.00 35.00 04/10/16 04/10/16 04/10/16 04/10/16 04:00 04:05 04:18 04:30 Temp 98.2 Pulse 78 75 80 Resp 31 31 31 B/P 154/94 176/96 Pulse Ox 91 94 94 95 O2 Delivery NIV/Bilevel NIV/Bilevel O2 Flow Rate 35.00 40.00 35.00 FiO2 40 04/10/16 04/10/16 04/10/16 04/10/16 05:00 05:30 06:00 06:30 Pulse 67 66 64 67 Resp 30 30 29 28 B/P 166/98 176/102 176/101 162/93 Pulse Ox 95 95 95 96 O2 Delivery NIV/Bilevel NIV/Bilevel NIV/Bilevel NIV/Bilevel O2 Flow Rate 35.00 35.00 35.00 35.00 04/10/16 04/10/16 04/10/16 04/10/16 06:56 06:58 07:00 07:30 Temp 97.9 Pulse 66 66 66 89 Resp 28 28 30 B/P 121/74 Pulse Ox 97 97 92 O2 Delivery NIV/Bilevel O2 Flow Rate 35.00 35.00 35.00 04/10/16 04/10/16 04/10/16 04/10/16 07:51 08:15 10:09 11:35 Temp 98.2 99.2 Pulse 92 82 99 Resp 30 28 32 B/P 116/76 106/70 Pulse Ox 93 91 95 92 O2 Delivery NIV/Bilevel NIV/Bilevel O2 Flow Rate 35.00 35.00 35.00 FiO2 35 04/10/16 04/10/16 11:55 12:04 Temp 99.1 Pulse 92 Resp 31 B/P 114/76 Pulse Ox 93 94 O2 Delivery NIV/Bilevel O2 Flow Rate 35.00 FiO2 35 Intake and Output 04/10/16 00:00 Intake Total 1755 ml Output Total 2903 ml Balance -1148 ml Weight (Pounds): 186 Weight (Ounces): 3.2 Weight (Calculated Kilograms): 84.012533 Constitutional: No AAO x 3, No apparent distress, well-developed Respiratory: chest expansion is symmetric chest is bilaterally symmetric crackles wheezing (scattered) Cardiovascular: regular rate-rhythm (tachycardic)No JVD, S1 and S2 systolic murmur Gastrointestional: other (post surgical abdomen; NG tube in place) Genital/Rectal: other (Urinary catheter to DD; clear, yellow urine) Extremities: no lower extremity edema bilateral Neurologic/Psychiatric: No oriented x 3, grossly intact Results/Procedures: Labs Laboratory Tests 04/10/16 04:19: Anion Gap 11, BUN/Creatinine Ratio 24, Basophils # (Auto) 0.0, Basophils (%) ( Auto) 0, Blood Urea Nitrogen 31H, Calcium Level 8.9, Carbon Dioxide Level 43H, Chloride Level 106, Creatinine 1.28, Eosinophils # (Auto) 0.2, Eosinophils (%) ( Auto) 2, Estimat Glomerular Filtration Rate 58, Glucose Level 158H, Hematocrit 34L, Hemoglobin 10.4L, Lymphocytes # (Auto) 0.9L, Lymphocytes (%) (Auto) 10L, Magnesium Level 1.6L, Mean Corpuscular Hemoglobin 33, Mean Corpuscular Hemoglobin Concent 30L, Mean Corpuscular Volume 109H, Mean Platelet Volume 10.8H , Monocytes # (Auto) 0.6, Monocytes (%) (Auto) 7, Neutrophils # (Auto) 7.2, Neutrophils (%) (Auto) 81H, Phosphorus Level 3.0, Platelet Count 193, Potassium Level 3.3L, Red Blood Count 3.16L, Red Cell Distribution Width 12.3, Sodium Level 160*H, White Blood Count 8.8 04/10/16 04:52: Aubrey Test YES-POS, Arterial Blood Base Excess 19.3H, Arterial Blood HCO3 46*H, Arterial Blood Oxygen Saturation 95, Arterial Blood Partial Pressure CO2 64H, Arterial Blood Partial Pressure O2 68L, Arterial Blood Total CO2 47.9H, Arterial Blood pH 7.47H, Blood Gas Inspired Oxygen 35% BIPAP, Blood Gas Patient Temperature 98.2, Blood Gas Puncture Site R BRACH, Blood Gas Ventilator Setting NO 04/10/16 06:46: Glucometer 143H 04/10/16 07:22: Glucometer 150H 04/10/16 08:51: Glucometer 140H 04/10/16 09:36: Glucometer 135H 04/10/16 10:44: Glucometer 146H 04/10/16 11:45: Glucometer 148H 04/10/16 12:21: Glucometer 143H Microbiology 04/05/16 Blood Culture - Preliminary, Resulted No growth 04/04/16 Gram Stain - Final, Complete 04/04/16 Sputum Culture - Final, Complete Klebsiella Oxytoca 03/29/16 Urine Culture - Final, Complete Laboratory Tests 04/09/16 05:00 04/10/16 04:19 A/P: Assessment: Acute respiratory failure, management by ICU and Medical Services Worsening R lung infiltrate Sepsis - management by ICU and Medical Services Small bowel obstruction, status post exploratory laparotomy, recovering slowly, managed by Dr. Stephens Acute on chronic renal failure, slowly improving Paroxysmal atrial fibrillation, currently in NSR [id number] score of 5, yearly risk of stroke without OAC is 6.7% Echo of 03/31/16: LVEF 60%, mild mitral and tricusp regurg, ?echogenic density in the LA for which Dr Juárez has recommended DIAN when clinically more stable CAD- history of CABG x 1 last year, done at [facility]- history of bilat CEA in the past by Dr. Spencer Hx of CVA COPD History of pulmonary hypertension Tobaccoism Hypernatremia, possibly related to TPN, management by ICU and Medical Services Plan: * Remains critically ill * Complex management due to multiple comorbidities * Continue iv beta-roya, as tolerated * Replenish K * Increase Lovenox to stroke prophylaxis dose when OK with the Surgical and Medical Services * Monitor labs and clinical status closely RACHEL RAVI MD FACP FACC CCDS Apr 10, 2016 12:38
--- NOTE | 2016-04-10 13:01 | Pulmonary Progress Note ---
Subjective Subjective/Events-last exam PT is requiring BiPAP now in ICU. Family at bedside. Exam Exam Vital Signs Date Time Temp Pulse Resp B/P Pulse Ox O2 Delivery O2 Flow Rate FiO2 04/10/16 12:38 96 35 94 35.00 04/10/16 12:04 94 35 04/10/16 11:55 99.1 92 31 114/76 93 NIV/Bilevel 35.00 04/10/16 11:35 99.2 99 32 106/70 92 NIV/Bilevel 35.00 04/10/16 10:09 82 28 95 35.00 04/10/16 08:15 91 35 04/10/16 07:51 98.2 92 30 116/76 93 NIV/Bilevel 35.00 04/10/16 07:30 97.9 89 30 121/74 92 NIV/Bilevel 35.00 04/10/16 07:00 66 04/10/16 06:58 66 28 97 35.00 04/10/16 06:56 66 28 97 35.00 04/10/16 06:30 67 28 162/93 96 NIV/Bilevel 35.00 04/10/16 06:00 64 29 176/101 95 NIV/Bilevel 35.00 04/10/16 05:30 66 30 176/102 95 NIV/Bilevel 35.00 04/10/16 05:00 67 30 166/98 95 NIV/Bilevel 35.00 04/10/16 04:30 80 31 176/96 95 NIV/Bilevel 35.00 04/10/16 04:18 75 31 94 40.00 04/10/16 04:05 94 40 04/10/16 04:00 98.2 78 31 154/94 91 NIV/Bilevel 35.00 04/10/16 03:30 78 28 153/96 93 NIV/Bilevel 35.00 04/10/16 03:00 83 28 133/89 92 NIV/Bilevel 35.00 04/10/16 02:10 78 31 95 NIV/Bilevel 35.00 04/10/16 02:06 73 34 98 40.00 04/10/16 02:00 73 31 148/90 99 NIV/Bilevel 40.00 04/10/16 01:30 79 34 128/84 97 NIV/Bilevel 40.00 04/10/16 01:00 74 29 154/99 97 NIV/Bilevel 40.00 04/10/16 01:00 74 04/10/16 00:30 80 28 149/94 95 NIV/Bilevel 40.00 04/10/16 00:11 84 29 95 40.00 04/10/16 00:08 86 31 127/87 NIV/Bilevel 40.00 04/10/16 00:05 94 40 04/10/16 00:00 98.2 88 31 127/87 94 NIV/Bilevel 40.00 04/09/16 23:30 96 32 102/71 92 NIV/Bilevel 40.00 04/09/16 23:00 102 39 114/83 94 NIV/Bilevel 40.00 04/09/16 22:40 79 35 97 40.00 04/09/16 22:00 84 34 134/94 97 NIV/Bilevel 40.00 04/09/16 21:21 85 34 140/95 89 NIV/Bilevel 40.00 04/09/16 21:00 90 42 128/82 NIV/Bilevel 30.00 04/09/16 20:13 82 35 140/84 93 NIV/Bilevel 04/09/16 20:10 81 35 137/88 94 NIV/Bilevel 30.00 04/09/16 20:03 99 34 92 45.00 04/09/16 20:00 98.9 81 33 140/84 99 NIV/Bilevel 45.00 04/09/16 20:00 98 45 04/09/16 19:00 82 35 135/80 93 NIV/Bilevel 45.00 04/09/16 19:00 82 04/09/16 18:25 92 42 92 30.00 04/09/16 18:00 89 39 122/80 93 NIV/Bilevel 30.00 04/09/16 17:00 70 35 100/61 92 NIV/Bilevel 30.00 04/09/16 16:06 97.0 73 34 156/88 93 Room Air 30.00 04/09/16 16:05 97.1 04/09/16 16:05 93 30 04/09/16 16:04 80 35 93 30.00 04/09/16 16:00 73 33 160/90 92 NIV/Bilevel 30.00 04/09/16 15:00 86 39 147/88 98 NIV/Bilevel 30.00 04/09/16 14:00 73 34 136/77 97 NIV/Bilevel 30.00 04/09/16 13:39 81 34 98 30.00 04/09/16 13:00 87 04/09/16 13:00 85 36 142/83 95 NIV/Bilevel 30.00 I & O 04/10/16 07:00 Intake Total 1855 ml Output Total 5578 ml Balance -3723 ml General Appearance: Mild Distress HEENT: PERRL/EOMI Neck: Supple Respiratory: Crackles (right) Decreased Breath Sounds (especially left base) Cardiovascular: Regular Rate, Rhythm Systolic Murmur Gastrointestinal: normal bowel sounds non tender soft other (dressing in place and dry) Extremity: Non Tender No Calf Tenderness No Pedal Edema Other (SCDs in place) Neurologic/Psychiatric: Other (sedated) Skin: Pallor Lymphatic: No Adenopathy Results Lab Laboratory Tests 04/09/16 05:00 04/10/16 04:19 Assessment/Plan Assessment/Plan Acute respiratory failure with aspiration - infection is improving -zosyn -SVN's Q4 metabolic encephalopathy -monitor Hypernatremia -Continue 1/2 NS at 30 -TPN d/c'd Small bowel obstruction s/p ex lap Inguinal hernia bilateral Acute renal failure/dehydration -IVF Arterial Fibrillation Clinical Quality Measures DVT/VTE Risk/Contraindication: Risk Factor Score Per Nursin RFS Level Per Nursing on Admit: 4+=Very High GRETCHEN OLSEN DO Apr 10, 2016 13:01
[2016-04-10 15:38] LABS: CALCIUM 8.8 MG/DL (8.5-10.1); CREATININE SERUM 1.27 MG/DL (0.60-1.30); POTASSIUM 3.7 MMOL/L (3.6-5.0)
--- NOTE | 2016-04-10 15:46 | Progress Note ---
Subjective Subjective/Events-last exam Pt still on BiPap, unable to answer questions. Nurse states breathing has been his main problem; has not indicated abdominal pain or problems. NGT removed last night, no output after hooking back up to suction. Review of Systems Pulmonary: Dyspnea Gastrointestinal: No: Nausea, Vomiting Objective Exam Vital Signs Date Time Temp Pulse Resp B/P Pulse Ox O2 Delivery O2 Flow Rate FiO2 04/10/16 13:49 96 10.00 80 04/10/16 13:00 90 04/10/16 12:38 96 35 94 35.00 04/10/16 12:04 94 35 04/10/16 11:55 99.1 92 31 114/76 93 NIV/Bilevel 35.00 04/10/16 11:35 99.2 99 32 106/70 92 NIV/Bilevel 35.00 04/10/16 10:09 82 28 95 35.00 04/10/16 08:15 91 35 04/10/16 07:51 98.2 92 30 116/76 93 NIV/Bilevel 35.00 04/10/16 07:30 97.9 89 30 121/74 92 NIV/Bilevel 35.00 04/10/16 07:00 66 04/10/16 06:58 66 28 97 35.00 04/10/16 06:56 66 28 97 35.00 04/10/16 06:30 67 28 162/93 96 NIV/Bilevel 35.00 04/10/16 06:00 64 29 176/101 95 NIV/Bilevel 35.00 04/10/16 05:30 66 30 176/102 95 NIV/Bilevel 35.00 04/10/16 05:00 67 30 166/98 95 NIV/Bilevel 35.00 04/10/16 04:30 80 31 176/96 95 NIV/Bilevel 35.00 04/10/16 04:18 75 31 94 40.00 04/10/16 04:05 94 40 04/10/16 04:00 98.2 78 31 154/94 91 NIV/Bilevel 35.00 04/10/16 03:30 78 28 153/96 93 NIV/Bilevel 35.00 04/10/16 03:00 83 28 133/89 92 NIV/Bilevel 35.00 04/10/16 02:10 78 31 95 NIV/Bilevel 35.00 04/10/16 02:06 73 34 98 40.00 04/10/16 02:00 73 31 148/90 99 NIV/Bilevel 40.00 04/10/16 01:30 79 34 128/84 97 NIV/Bilevel 40.00 04/10/16 01:00 74 29 154/99 97 NIV/Bilevel 40.00 04/10/16 01:00 74 04/10/16 00:30 80 28 149/94 95 NIV/Bilevel 40.00 04/10/16 00:11 84 29 95 40.00 04/10/16 00:08 86 31 127/87 NIV/Bilevel 40.00 04/10/16 00:05 94 40 04/10/16 00:00 98.2 88 31 127/87 94 NIV/Bilevel 40.00 04/09/16 23:30 96 32 102/71 92 NIV/Bilevel 40.00 04/09/16 23:00 102 39 114/83 94 NIV/Bilevel 40.00 04/09/16 22:40 79 35 97 40.00 04/09/16 22:00 84 34 134/94 97 NIV/Bilevel 40.00 04/09/16 21:21 85 34 140/95 89 NIV/Bilevel 40.00 04/09/16 21:00 90 42 128/82 NIV/Bilevel 30.00 04/09/16 20:13 82 35 140/84 93 NIV/Bilevel 04/09/16 20:10 81 35 137/88 94 NIV/Bilevel 30.00 04/09/16 20:03 99 34 92 45.00 04/09/16 20:00 98.9 81 33 140/84 99 NIV/Bilevel 45.00 04/09/16 20:00 98 45 04/09/16 19:00 82 35 135/80 93 NIV/Bilevel 45.00 04/09/16 19:00 82 04/09/16 18:25 92 42 92 30.00 04/09/16 18:00 89 39 122/80 93 NIV/Bilevel 30.00 04/09/16 17:00 70 35 100/61 92 NIV/Bilevel 30.00 04/09/16 16:06 97.0 73 34 156/88 93 Room Air 30.00 04/09/16 16:05 97.1 04/09/16 16:05 93 30 04/09/16 16:04 80 35 93 30.00 04/09/16 16:00 73 33 160/90 92 NIV/Bilevel 30.00 I & O 04/10/16 07:00 Intake Total 1855 ml Output Total 5578 ml Balance -3723 ml Capillary Refill : General Appearance: Mild Distress HEENT: PERRL/EOMI Neck: Supple Respiratory: No Accessory Muscle Use Crackles (right) Decreased Breath Sounds (especially left base) Cardiovascular: Regular Rate, Rhythm Systolic Murmur Gastrointestinal: normal bowel sounds non tender soft other (still with moderate amount of serous fluid coming from incision) Extremity: Non Tender No Calf Tenderness No Pedal Edema Other (SCDs in place) Neurologic/Psychiatric: Other (sedated) Skin: Pallor Lymphatic: No Adenopathy Results Lab Laboratory Tests 04/10/16 04:19: Anion Gap 11, BUN/Creatinine Ratio 24, Basophils # (Auto) 0.0, Basophils (%) ( Auto) 0, Blood Urea Nitrogen 31H, Calcium Level 8.9, Carbon Dioxide Level 43H, Chloride Level 106, Creatinine 1.28, Eosinophils # (Auto) 0.2, Eosinophils (%) ( Auto) 2, Estimat Glomerular Filtration Rate 58, Glucose Level 158H, Hematocrit 34L, Hemoglobin 10.4L, Lymphocytes # (Auto) 0.9L, Lymphocytes (%) (Auto) 10L, Magnesium Level 1.6L, Mean Corpuscular Hemoglobin 33, Mean Corpuscular Hemoglobin Concent 30L, Mean Corpuscular Volume 109H, Mean Platelet Volume 10.8H , Monocytes # (Auto) 0.6, Monocytes (%) (Auto) 7, Neutrophils # (Auto) 7.2, Neutrophils (%) (Auto) 81H, Phosphorus Level 3.0, Platelet Count 193, Potassium Level 3.3L, Red Blood Count 3.16L, Red Cell Distribution Width 12.3, Sodium Level 160*H, White Blood Count 8.8 04/10/16 04:52: Aubrey Test YES-POS, Arterial Blood Base Excess 19.3H, Arterial Blood HCO3 46*H, Arterial Blood Oxygen Saturation 95, Arterial Blood Partial Pressure CO2 64H, Arterial Blood Partial Pressure O2 68L, Arterial Blood Total CO2 47.9H, Arterial Blood pH 7.47H, Blood Gas Inspired Oxygen 35% BIPAP, Blood Gas Patient Temperature 98.2, Blood Gas Puncture Site R BRACH, Blood Gas Ventilator Setting NO 04/10/16 06:46: Glucometer 143H 04/10/16 07:22: Glucometer 150H 04/10/16 08:51: Glucometer 140H 04/10/16 09:36: Glucometer 135H 04/10/16 10:44: Glucometer 146H 04/10/16 11:45: Glucometer 148H 04/10/16 12:21: Glucometer 143H 04/10/16 13:47: Glucometer 126H 04/10/16 15:06: Glucometer 129H 04/10/16 15:10: Anion Gap 10, BUN/Creatinine Ratio 22, Blood Urea Nitrogen 28H, Calcium Level 8.8, Carbon Dioxide Level 41H, Chloride Level 106, Creatinine 1.27, Estimat Glomerular Filtration Rate 58, Glucose Level 142H, Potassium Level 3.7, Sodium Level 157H Microbiology 04/05/16 Blood Culture - Preliminary, Resulted No growth 04/04/16 Gram Stain - Final, Complete 04/04/16 Sputum Culture - Final, Complete Klebsiella Oxytoca 03/29/16 Urine Culture - Final, Complete Assessment/Plan Assessment/Plan Assessment/Plan 1. Small Bowel Obstruction--S/P exploratory lap by Dr. Stephens with SARAH and small bowel resection with re-anastamosis and post-op complications of aspiration pneumonia and bilateral inguinal hernias having to be reduced--post- op ileus--NG tube out -----Can start diet if able to get off BiPap 2. Acute Renal Failure/Dehydration-- Cr improving 3. Acute Respiratory Failure with Post-op Aspiration--WBC count improving, on Zosyn, off ventilator--CXR looks little worse, on BIPAP with FiO2 of 35% but having difficulty getting accurate O2 sat and ABG little worse today--Dr. Mcdaniel will be in to assess patient 4. Hypomagnesemia--on magnesium replacement protocol, stable 5. Atrial Fibrillation with RVR--back in NSR but tachycardic so continue on IV lopressor 6. Hypernatremia--TPN on hold with D10 started 7. Hypokalemia--on potassium replacement Clinical Quality Measures DVT/VTE Risk/Contraindication: Risk Factor Score Per Nursin RFS Level Per Nursing on Admit: 4+=Very High VINICIUS HILL DO Apr 10, 2016 15:46
[2016-04-10] MEDS: SODIUM PHOSPHATE IV SCH ×10 (16:39)
[2016-04-10] MEDS: [UNRECOGNIZED DRUG - OTHER] IV SCH ×10 (16:39)
[2016-04-10] MEDS: ENOXAPARIN 40 MG/0.4 ML (LOVENOX) SYR SC SCH (20:44)
[2016-04-10] MEDS: fentaNYL INJECTION 100 MCG/2 ML AMP IVP PRN (22:17)
[2016-04-11] VITALS (21 sets, daily range): BP systolic 106–181; BP diastolic 53–92
[2016-04-11] MEDS: RT-ALBUTEROL/IPRATROPIUM 3 ML (DUONEB) VIAL INH SCH ×6 (02:08→22:50)
[2016-04-11] MEDS: meTOprolol 5 MG/5 ML (LOPRESSOR) VIAL IV SCH ×7 (03:04→20:47)
[2016-04-11 04:45] LABS: BASOPHILS % (AUTO) 0 % (0-10); EOSINOPHILS # (AUTO) 0.3 10^3/uL (0.0-0.3); EOSINOPHILS % (AUTO) 3 % (0-10); LYMPHOCYTES # (AUTO) 1.1 X 10^3 (1.0-4.0); LYMPHOCYTES % (AUTO) 10 % (12-44); MEAN CORPUSCULAR HEMOGLOBIN 33 PG (25-34); MEAN CORPUSCULAR HGB CONC 31 G/DL (32-36); MEAN CORPUSCULAR VOLUME 107 FL (80-99); MEAN PLATELET VOLUME 11.5 FL (7.4-10.4); MONOCYTES # (AUTO) 0.8 X 10^3 (0.0-1.0); MONOCYTES % (AUTO) 7 % (0-12); NEUTROPHILS # (AUTO) 8.7 X 10^3 (1.8-7.8); NEUTROPHILS % (AUTO) 80 % (42-75); PLATELET COUNT 214 10^3/uL (130-400); RED BLOOD COUNT 2.99 10^6/uL (4.35-5.85); RED CELL DISTRIBUTION WIDTH 12.2 % (10.0-14.5); WHITE BLOOD COUNT 10.8 10^3/uL (4.3-11.0)
[2016-04-11 05:06] LABS: CALCIUM 8.3 MG/DL (8.5-10.1); CREATININE SERUM 1.32 MG/DL (0.60-1.30); MAGNESIUM 1.7 MG/DL (1.8-2.4); PHOSPHORUS 3.3 MG/DL (2.3-4.7); POTASSIUM 3.9 MMOL/L (3.6-5.0)
[2016-04-11] MEDS: MAGNESIUM 1 GM/100 ML IVPB 100 ML IV SCH ×3 (06:00→07:00)
[2016-04-11] MEDS: POTASSIUM CL 10MEQ/50ML IVPB 50 ML IV SCH (06:00)
[2016-04-11] MEDS: KCL 20 MEQ TAB (K-DUR) PO SCH (06:00)
[2016-04-11] MEDS: RT-BUDESONIDE NEBS 0.5 MG/2ML (PULMICORT) AMP INH SCH ×2 (06:20→18:57)
--- NOTE | 2016-04-11 06:30 | Pulmonary Progress Note ---
Subjective Subjective/Events-last exam Pt is feeling improved. No complications noted. Exam Exam Vital Signs Date Time Temp Pulse Resp B/P Pulse Ox O2 Delivery O2 Flow Rate FiO2 04/11/16 06:00 111 24 129/85 100 FIO2 80.00 10.00 04/11/16 05:00 105 17 106/71 100 FIO2 80.00 10.00 04/11/16 04:00 99 10.00 80 04/11/16 04:00 98.9 105 18 125/73 98 FIO2 80.00 10.00 04/11/16 03:00 105 25 130/78 100 FIO2 80.00 10.00 04/11/16 02:08 98 10.00 80 04/11/16 02:00 101 24 117/78 99 FIO2 80.00 10.00 04/11/16 01:00 104 04/11/16 01:00 104 19 119/74 100 FIO2 80.00 10.00 04/11/16 00:05 99 10.00 80 04/11/16 00:00 99.4 103 21 115/74 100 FIO2 80.00 10.00 04/10/16 23:00 107 17 97/67 97 FIO2 80.00 10.00 04/10/16 22:07 100 10.00 80 04/10/16 22:00 108 29 116/75 100 FIO2 80.00 10.00 04/10/16 21:00 98 36 103/67 91 FIO2 80.00 10.00 04/10/16 20:00 100 10.00 80 04/10/16 20:00 101 36 119/80 99 FIO2 80.00 10.00 04/10/16 19:30 100 10.00 80 04/10/16 19:00 101 04/10/16 19:00 100.0 101 18 128/87 100 FIO2 80.00 10.00 04/10/16 18:28 91 10.00 80 04/10/16 18:16 95 04/10/16 18:00 100 21 116/85 98 FIO2 80.00 10.00 04/10/16 17:00 89 36 127/85 98 FIO2 80.00 10.00 04/10/16 16:00 91 33 111/74 99 NIV/Bilevel 35.00 04/10/16 16:00 97 10.00 80 04/10/16 15:00 88 38 122/78 97 NIV/Bilevel 35.00 04/10/16 14:00 91 28 126/82 99 NIV/Bilevel 35.00 04/10/16 13:49 96 10.00 80 04/10/16 13:00 90 04/10/16 13:00 90 31 112/76 95 NIV/Bilevel 35.00 04/10/16 12:38 96 35 94 35.00 04/10/16 12:04 94 35 04/10/16 12:00 93 32 106/69 93 NIV/Bilevel 35.00 04/10/16 11:55 99.1 92 31 114/76 93 NIV/Bilevel 35.00 04/10/16 11:35 99.2 99 32 106/70 92 NIV/Bilevel 35.00 04/10/16 11:00 102 31 114/76 91 NIV/Bilevel 35.00 04/10/16 10:09 82 28 95 35.00 04/10/16 10:00 82 29 143/84 91 NIV/Bilevel 35.00 04/10/16 09:00 82 29 143/84 91 NIV/Bilevel 35.00 04/10/16 08:15 91 35 04/10/16 08:00 89 29 139/85 94 NIV/Bilevel 35.00 04/10/16 07:51 98.2 92 30 116/76 93 NIV/Bilevel 35.00 04/10/16 07:30 97.9 89 30 121/74 92 NIV/Bilevel 35.00 04/10/16 07:00 67 29 116/76 96 NIV/Bilevel 35.00 04/10/16 07:00 66 04/10/16 06:58 66 28 97 35.00 04/10/16 06:56 66 28 97 35.00 04/10/16 06:30 67 28 162/93 96 NIV/Bilevel 35.00 I & O 04/11/16 07:00 Intake Total 3345 ml Output Total 2075 ml Balance 1270 ml General Appearance: Mild Distress HEENT: PERRL/EOMI Neck: Supple Respiratory: No Accessory Muscle Use Crackles (right) Decreased Breath Sounds (especially left base) Cardiovascular: Regular Rate, Rhythm Systolic Murmur Gastrointestinal: normal bowel sounds non tender soft other (still with moderate amount of serous fluid coming from incision) Extremity: Non Tender No Calf Tenderness No Pedal Edema Other (SCDs in place) Neurologic/Psychiatric: Other (sedated) Skin: Pallor Lymphatic: No Adenopathy Results Lab Laboratory Tests 04/10/16 04:19 04/10/16 15:10 04/11/16 04:15 Assessment/Plan Assessment/Plan Acute respiratory failure with aspiration - infection is improving -zosyn -SVN's Q4 metabolic encephalopathy -monitor Hypernatremia -improving -Continue 1/2 NS at 30 -TPN Small bowel obstruction s/p ex lap Inguinal hernia bilateral Acute renal failure/dehydration -IVF Arterial Fibrillation Clinical Quality Measures DVT/VTE Risk/Contraindication: Risk Factor Score Per Nursin RFS Level Per Nursing on Admit: 4+=Very High GRETCHEN OLSEN DO Apr 11, 2016 06:30
--- NOTE | 2016-04-11 07:28 | Diagnostic Imaging Report ---
INDICATION: Dyspnea. DISCUSSION: Single portable upright view of the chest was obtained, comparison 04/10/2016. Underlying COPD is stable. Suspect small left pleural effusion, stable. Mild interstitial thickening within the mid lower right lung is stable, possible early pneumonia. Normal heart size. Median sternotomy and postoperative changes of the cervical spine are stable. IMPRESSION: 1. Underlying COPD is again noted. Interstitial thickening within the right mid and lower lung is present, and chronic lung disease versus superimposed pneumonia. 2. Small left pleural effusion, stable. Dictated by: Dictated on workstation # [id number]
[2016-04-11] MEDS: 1/2 NS IV SOLUTION 1,000 ML IV SCH ×2 (08:15→22:15)
--- NOTE | 2016-04-11 08:31 | Cardiology Progress Note ---
Subjective Subjective/Events-last exam patient is laying down in bed, still having shortness of breath, denied any chest pain. Recovering slowly. Events over the weekend were reviewed Review of Systems General: No Chills, No Night Sweats, Fatigue MalaiseNo Appetite, No Other HEENT: No Head Aches, No Visual Changes, No Eye Pain, No Ear Pain, No Dysphasia , No Sinus Congestion, No Post Nasal Drip, No Sore Throat, No Other Pulmonary: DyspneaNo Cough, No Pleuritic Chest Pain, No Other Cardiovascular: No: Chest Pain, Edema, Lt Headedness, Orthopnea, Other, Palpitations, Paroxysmal Noc. Dyspnea Objective-Cardiology Exam Last Set of Vital Signs Vital Signs 04/11/16 04/11/16 04/11/16 04/11/16 04:00 06:31 06:32 07:00 Temp 98.9 Pulse 109 Resp 15 B/P 115/80 Pulse Ox 96 O2 Delivery FIO2 O2 Flow Rate 65.00 10.00 FiO2 65 Capillary Refill : I&O Intake and Output 04/11/16 00:00 Intake Total 2595 ml Output Total 2325 ml Balance 270 ml Intake Oral 1050 ml IV Total 1545 ml Output Urine Total 2325 ml General: Alert, Oriented X3, Cooperative, Mild Distress HEENT: Atraumatic Neck: Supple, No JVD, No Thyromegaly Lungs: Normal Air Movement, Other (bilateral rhonchi, expiratory wheezing) Heart: Normal S1, Normal S2, No Murmurs, Other (tachycardic) Abdomen: No Masses, Other (diminished bowel sounds, distended abdomen) Extremities: No Clubbing, No Cyanosis, No Edema, Normal Pulses, No Tenderness/ Swelling Skin: No Rashes, No Breakdown, No Significant Lesion Neuro: Other (sedated and intubated) Psych/Mental Status: Other (sedated and intubated) Results Lab Laboratory Tests 04/10/16 15:10 04/11/16 04:15 A/P-Cardiology Admission Diagnosis Afib with RVR CAD HTN SBO Assessment/Plan Status post acute respiratory failure, better, was on BiPAP, currently on nasal cannula still having some shortness of breath and wheezing. Hypernatremia, metabolic encephalopathy, improved. Continue to monitor. Status post hypotensive shock, blood pressure is better. Continue to monitor Small bowel obstruction, status post exploratory laparotomy, recovering slowly, managed by Dr. Stephens Acute on chronic renal failure, dehydration, continue to monitor renal function Paroxysmal atrial fibrillation, back to sinus rhythm, in sinus tachycardia, continue on beta blockers if tolerated. Continue to monitor closely. [id number] score of 5, yearly risk of stroke without OAC is 6.7%. restart Lovenox when tolerated. Need to be on NOAC prior to discharge Echocardiogram was of poor quality, there is questionable echogenic density in the left atrium, recommend DIAN, discussed it with the patient, he prefer to have it done as an outpatient with his primary life skills consultant Dr. Galaviz CAD- history of CABG x 1 last year, done at [place]. Continue to monitor SHAYNA- history of bilat CEA in the past by Dr. Spencer. Continue to monitor as outpatient. Hx of CVA COPD History of pulmonary hypertension. Continue to monitor Tobaccoism Clinical Quality Measures DVT/VTE Risk/Contraindication: Risk Factor Score Per Nursin RFS Level Per Nursing on Admit: 4+=Very High PAYTON BUTCHER MD Apr 11, 2016 08:31
[2016-04-11] MEDS: BISACODYL 10 MG SUPP (DULCOLAX) PR SCH ×2 (09:00→20:47)
[2016-04-11] MEDS: PANTOPRAZOLE 40 MG/10 ML (PROTONIX) VIAL IV SCH ×2 (09:16→20:47)
[2016-04-11] MEDS: MAGNESIUM 1 GM/D5W 100 ML IVPB IV SCH ×2 (09:16→11:36)
[2016-04-11] MEDS: NICOTINE 21 MG (NICODERM) PATCH TD SCH (09:16)
[2016-04-11] MEDS: PIPERACILLIN SODIUM/TAZOBACTAM 4.5 GM in NS (IVPB) 100 ML IV SCH (09:16)
[2016-04-11] MEDS: NICOTINE PATCH REMOVAL TP SCH (09:17)
--- NOTE | 2016-04-11 09:39 | Physical Therapy Progress Note ---
Therapy Progress Note PT awaiting further orders to resume therapy. Nursing notified of this last week. JESS LAZCANO PT Apr 11, 2016 09:39
[2016-04-11] MEDS: HYDROcodone/APAP 7.5 MG/325 MG (LORTAB, LORCET PLUS) TABLET PO PRN ×2 (11:26→17:42)
--- NOTE | 2016-04-11 13:46 | Progress Note (SOAP) ---
Subjective Subjective/Events-last exam Fwup small bowel obstruction--S/P exploratory lab with small bowel resection and reanastamosis, acute renal failure--worsened since surgery, dehydration, COPD, Atrial fibrillation with RVR, Post-op VDRF with aspiration pneumonia. Doing much better. On nasal cannula. Having diarrhea. Mouth sore. Objective Exam Vital Signs Date Time Temp Pulse Resp B/P Pulse Ox O2 Delivery O2 Flow Rate FiO2 04/11/16 10:23 100 10.00 80 04/11/16 10:00 108 38 173/87 94 FIO2 65.00 10.00 04/11/16 09:00 112 13 133/79 100 FIO2 65.00 10.00 04/11/16 08:00 107 29 115/66 99 FIO2 65.00 10.00 04/11/16 07:00 109 04/11/16 07:00 107 16 118/66 97 FIO2 65.00 10.00 04/11/16 06:32 106 15 115/80 96 FIO2 65.00 10.00 04/11/16 06:31 10.00 65 04/11/16 06:21 100 10.00 80 04/11/16 06:21 100 10.00 80 04/11/16 06:00 111 24 129/85 100 FIO2 80.00 10.00 04/11/16 05:00 105 17 106/71 100 FIO2 80.00 10.00 04/11/16 04:00 99 10.00 80 04/11/16 04:00 98.9 105 18 125/73 98 FIO2 80.00 10.00 04/11/16 03:00 105 25 130/78 100 FIO2 80.00 10.00 04/11/16 02:08 98 10.00 80 04/11/16 02:00 101 24 117/78 99 FIO2 80.00 10.00 04/11/16 01:00 104 04/11/16 01:00 104 19 119/74 100 FIO2 80.00 10.00 04/11/16 00:05 99 10.00 80 04/11/16 00:00 99.4 103 21 115/74 100 FIO2 80.00 10.00 04/10/16 23:00 107 17 97/67 97 FIO2 80.00 10.00 04/10/16 22:07 100 10.00 80 04/10/16 22:00 108 29 116/75 100 FIO2 80.00 10.00 04/10/16 21:00 98 36 103/67 91 FIO2 80.00 10.00 04/10/16 20:00 100 10.00 80 04/10/16 20:00 101 36 119/80 99 FIO2 80.00 10.00 04/10/16 19:30 100 10.00 80 04/10/16 19:00 101 04/10/16 19:00 100.0 101 18 128/87 100 FIO2 80.00 10.00 04/10/16 18:28 91 10.00 80 04/10/16 18:16 95 04/10/16 18:00 100 21 116/85 98 FIO2 80.00 10.00 04/10/16 17:00 89 36 127/85 98 FIO2 80.00 10.00 04/10/16 16:00 91 33 111/74 99 NIV/Bilevel 35.00 04/10/16 16:00 97 10.00 80 04/10/16 15:00 88 38 122/78 97 NIV/Bilevel 35.00 04/10/16 14:00 91 28 126/82 99 NIV/Bilevel 35.00 04/10/16 13:49 96 10.00 80 I & O 04/11/16 06:59 Intake Total 3445 ml Output Total 2075 ml Balance 1370 ml Capillary Refill : General Appearance: No Apparent Distress HEENT: Other (mild thrush) Neck: Supple Respiratory: Decreased Breath Sounds Wheezing Cardiovascular: Systolic Murmur Tachycardia Gastrointestinal: normal bowel sounds non tender soft other (dressing in place and dry) Extremity: Non Tender No Calf Tenderness No Pedal Edema Neurologic/Psychiatric: Alert Oriented x3 Results Lab Laboratory Tests 04/10/16 13:47: Glucometer 126H 04/10/16 15:06: Glucometer 129H 04/10/16 15:10: Anion Gap 10, B-Type Natriuretic Peptide 651.5H, BUN/Creatinine Ratio 22, Blood Urea Nitrogen 28H, Calcium Level 8.8, Carbon Dioxide Level 41H, Chloride Level 106, Creatinine 1.27, Estimat Glomerular Filtration Rate 58, Glucose Level 142H , Potassium Level 3.7, Sodium Level 157H 04/11/16 04:15: Anion Gap 13, BUN/Creatinine Ratio 22, Blood Urea Nitrogen 29H, Calcium Level 8.3L, Carbon Dioxide Level 34H, Chloride Level 101, Creatinine 1.32H, Estimat Glomerular Filtration Rate 56, Glucose Level 139H, Potassium Level 3.9, Sodium Level 148H, Basophils # (Auto) 0.0, Basophils (%) (Auto) 0, Eosinophils # (Auto ) 0.3, Eosinophils (%) (Auto) 3, Hematocrit 32L, Hemoglobin 9.8L, Lymphocytes # (Auto) 1.1, Lymphocytes (%) (Auto) 10L, Magnesium Level 1.7L, Mean Corpuscular Hemoglobin 33, Mean Corpuscular Hemoglobin Concent 31L, Mean Corpuscular Volume 107H, Mean Platelet Volume 11.5H, Monocytes # (Auto) 0.8, Monocytes (%) (Auto) 7 , Neutrophils # (Auto) 8.7H, Neutrophils (%) (Auto) 80H, Phosphorus Level 3.3, Platelet Count 214, Red Blood Count 2.99L, Red Cell Distribution Width 12.2, White Blood Count 10.8 Microbiology 04/05/16 Blood Culture - Final, Complete No growth 04/04/16 Gram Stain - Final, Complete 04/04/16 Sputum Culture - Final, Complete Klebsiella Oxytoca 03/29/16 Urine Culture - Final, Complete Assessment/Plan Assessment/Plan Assess & Plan/Chief Complaint 1. Small Bowel Obstruction--S/P exploratory lap by Dr. Stephens with SARAH and small bowel resection with re-anastamosis and post-op complications of aspiration pneumonia and bilateral inguinal hernias having to be reduced-- surgery to advance diet 2. Acute Renal Failure/Dehydration-- Cr improving 3. Acute Respiratory Failure with Post-op Aspiration--WBC count improving, on Zosyn, off BIPAP and on NC--looks better today 4. Hypomagnesemia--on magnesium replacement protocol, stable 5. Atrial Fibrillation with RVR--back in NSR but tachycardic so continue on IV lopressor 6. Hypernatremia--improving 7. Hypokalemia--on potassium replacement 8. Weakness--up to chair and start PT Diagnosis/Problems: Clinical Quality Measures DVT/VTE Risk/Contraindication: Risk Factor Score Per Nursin RFS Level Per Nursing on Admit: 4+=Very High AIME CANO DO Apr 11, 2016 1:46 pm
[2016-04-11] MEDS ORDERED: NYSTATIN ORAL SUSP 5 ML UDC PO NR (14:00)
--- NOTE | 2016-04-11 14:37 | Physical Therapy Daily Note ---
PT Daily Note-Current Subjective Patient is alert and agrees to PT. Pain Numeric Pain Scale: 5-Moderate Pain Location: Lower Location Body Site: Abdomen Pain Description: Pressure Mental Status Patient Orientation: Normal For Age Attachments: Oxygen, Drains, Helms Catheter, IV Transfers Functional [place] Measure 0=Not Assessed/NA 4=Minimal Assistance 1=Total Assistance 5=Supervision or Setup 2=Maximal Assistance 6=Modified [place] 3=Moderate Assistance 7=Complete IndependenceIRFPAI Quality Coding Scale 6 Independent with activity with or without an assistive device 5 Patient requires set up or clean up by helper. Patient completes activity by themselves 4 Supervision or touching assist (CGA). [place] provide cues , steadying assist 3 The helper provides less than half the effort to complete the activity 2 The helper provides more than half the effort to complete the activity 1 Dependent. The helper does all the effort to complete an activity 7 Patient refused to complete or attempt activity 9 The patient did not perform the activity before the current illness or injury 88 Not attempted due to Medical conditions or safety concerns Transfers (B, C, W/C) (FIM): 3 Scootin Rollin Supine to/from Sit: 3 Sit to/from Stand: 3 Bed to/from Chair: 3 Patient required mod assist with all mobility and patient is up in chair Gait Training Gait Assistive Device: FWW Assessment Patient reassessed by PT on strength and mobility. Patient is currently at a mod assist LOF with all gross motor skills. PT to increase activity as tolerated by patient. PT Pharmacy Benefits Coordinator Goals Pharmacy Benefits Coordinator Goals PT [facility] Goals Time Frame: Apr 19, 2016 Transfers (B,C,W/C) (FIM): 6 Gait (FIM): 6 Gait distance (FIM): 3=150 ft Gait Level of Assist: 6 Gait Assistive Device: FWW, Cane Single Point PT Plan Treatment/Plan Treatment Plan: Continue Plan of Care Treatment Plan: Bed Mobility, Education, Functional Activity Kris, Functional Strength, Gait, Safety, Therapeutic Exercise, Transfers Treatment Duration: Apr 19, 2016 # of days/week 6 Visits Per Week: 5-6 Goals to remain the same as stated on previous evaluation Time/GCodes Time In: 1405 Time Out: 1415 Total Billed Treatment Time: 10 Total Billed Treatment 1 visit ReEval 10 min JESS LAZCANO PT Apr 11, 2016 14:37
[2016-04-11] MEDS: fentaNYL INJECTION 100 MCG/2 ML AMP IVP PRN (16:00)
[2016-04-11] MEDS: DEXTROSE 10% IV SOLUTION 1,000 ML IV SCH (16:05)
[2016-04-11] MEDS: SODIUM PHOSPHATE IV SCH ×10 (18:57)
[2016-04-11] MEDS: POTASSIUM CHLORIDE IV SCH ×10 (18:57)
[2016-04-11] MEDS: [UNRECOGNIZED DRUG - OTHER] IV SCH ×10 (18:57)
[2016-04-11] MEDS: NYSTATIN ORAL SUSP 5 ML UDC PO SCH (18:57)
--- NOTE | 2016-04-11 19:38 | Wound Care Progress Note ---
Subjective Subjective Subjective/Events-last exam 60 year old male with two areas of injury to posterior buttock area where tape was employed to secure a dressing holding in an inguinal hernia. When the tape came off, so did the skin. These are superficial, irregular, not located over adam prominences, and not consistent with pressure injury. He does have an area on the R elbow with non-blanching erythema, consistent with Stage 1 pressure injury. Recent small bowel resection for infarction due to adhesions with slow recovery due to cardiopulmonary complications. PMH: CAD, PVD, HTN, SBO, recurring hypomagnesemia. FH: + for DM, COPD, CA. SH: = EtOH, former smoker. Review of Systems General: No Chills HEENT: No Head Aches Pulmonary: No Dyspnea Cardiovascular: No: Chest Pain Gastrointestinal: : Abdominal Pain Genitourinary: Other (ortiz) Musculoskeletal: : back pain Neurological: : Weakness Integument -- Bilateral buttock and r elbow wounds. Psych -- No complaints. Objective Exam Last Set of Vital Signs Vital Signs Date Time Temp Pulse Resp B/P Pulse Ox O2 Delivery O2 Flow Rate FiO2 04/11/16 18:58 100 6.00 04/11/16 16:00 117 21 140/81 High Flow NC 04/11/16 16:00 97.6 04/11/16 16:00 65 Capillary Refill : I&O Intake and Output 04/10/16 23:59 Intake Total 2595 ml Output Total 2325 ml Balance 270 ml Intake Oral 1050 ml IV Total 1545 ml Output Urine Total 2325 ml General: Alert, No Acute Distress HEENT: Atraumatic Neck: Supple Lungs: Normal Air Movement Heart: Regular Rate Abdomen: Soft, No Tenderness Extremities: No Clubbing Skin: Other (Two areas of excoriation of both upper, posterior buttock areas, irregular, no slough; R elbow --- 1.5 x 0.5 x 0.1 cm area of non-blanching erythema with surrounding area of blanchin erythema.) Results Lab Laboratory Tests 04/11/16 04:15: Anion Gap 13, BUN/Creatinine Ratio 22, Basophils # (Auto) 0.0, Basophils (%) ( Auto) 0, Blood Urea Nitrogen 29H, Calcium Level 8.3L, Carbon Dioxide Level 34H, Chloride Level 101, Creatinine 1.32H, Eosinophils # (Auto) 0.3, Eosinophils (%) (Auto) 3, Estimat Glomerular Filtration Rate 56, Glucose Level 139H, Hematocrit 32L, Hemoglobin 9.8L, Lymphocytes # (Auto) 1.1, Lymphocytes (%) (Auto) 10L, Magnesium Level 1.7L, Mean Corpuscular Hemoglobin 33, Mean Corpuscular Hemoglobin Concent 31L, Mean Corpuscular Volume 107H, Mean Platelet Volume 11.5H , Monocytes # (Auto) 0.8, Monocytes (%) (Auto) 7, Neutrophils # (Auto) 8.7H, Neutrophils (%) (Auto) 80H, Phosphorus Level 3.3, Platelet Count 214, Potassium Level 3.9, Red Blood Count 2.99L, Red Cell Distribution Width 12.2, Sodium Level 148H, White Blood Count 10.8 Microbiology 04/05/16 Blood Culture - Final, Complete No growth 04/04/16 Gram Stain - Final, Complete 04/04/16 Sputum Culture - Final, Complete Klebsiella Oxytoca 03/29/16 Urine Culture - Final, Complete Assessment/Plan Assessment/Plan Assessment/Plan 1. Two areas of excoriation due to tape, bilateral buttocks, partial thickness. 2. Pressure injury, R elbow, Stage 1. 3. Multiple recent medical co-morbidities, including small bowel obstruction leading to prolonged bedfast state. Plan: Barrier cream to buttocks, elbow protectors to elbows. LORELEI SNYDER MD Apr 11, 2016 19:38
[2016-04-11] MEDS: ZINC OXIDE 20% OINT 30 GM TUBE TOP SCH (20:46)
[2016-04-11] MEDS: ENOXAPARIN 40 MG/0.4 ML (LOVENOX) SYR SC SCH (20:47)
[2016-04-12] VITALS (7 sets, daily range): BP systolic 126–145; BP diastolic 64–95
[2016-04-12] MEDS: meTOprolol 5 MG/5 ML (LOPRESSOR) VIAL IV SCH ×3 (00:07→05:43)
[2016-04-12] MEDS: NYSTATIN ORAL SUSP 5 ML UDC PO SCH ×5 (00:07→23:12)
[2016-04-12] MEDS ORDERED: LIDOCAINE UROJET 2% GEL 10 ML PKG ONE (00:30)
[2016-04-12] MEDS: RT-ALBUTEROL/IPRATROPIUM 3 ML (DUONEB) VIAL INH SCH ×6 (02:50→22:04)
[2016-04-12 05:27] LABS: BASOPHILS % (AUTO) 0 % (0-10); EOSINOPHILS # (AUTO) 0.4 10^3/uL (0.0-0.3); EOSINOPHILS % (AUTO) 3 % (0-10); LYMPHOCYTES # (AUTO) 0.8 X 10^3 (1.0-4.0); LYMPHOCYTES % (AUTO) 7 % (12-44); MEAN CORPUSCULAR HEMOGLOBIN 33 PG (25-34); MEAN CORPUSCULAR HGB CONC 31 G/DL (32-36); MEAN CORPUSCULAR VOLUME 107 FL (80-99); MEAN PLATELET VOLUME 11.6 FL (7.4-10.4); MONOCYTES # (AUTO) 0.8 X 10^3 (0.0-1.0); MONOCYTES % (AUTO) 7 % (0-12); NEUTROPHILS # (AUTO) 9.1 X 10^3 (1.8-7.8); NEUTROPHILS % (AUTO) 82 % (42-75); PLATELET COUNT 221 10^3/uL (130-400); RED BLOOD COUNT 2.81 10^6/uL (4.35-5.85); RED CELL DISTRIBUTION WIDTH 12.2 % (10.0-14.5); WHITE BLOOD COUNT 11.1 10^3/uL (4.3-11.0)
[2016-04-12 05:43] LABS: CALCIUM 8.3 MG/DL (8.5-10.1); CREATININE SERUM 1.29 MG/DL (0.60-1.30); MAGNESIUM 2.2 MG/DL (1.8-2.4); PHOSPHORUS 3.2 MG/DL (2.3-4.7); POTASSIUM 3.8 MMOL/L (3.6-5.0)
[2016-04-12] MEDS: KCL 20 MEQ TAB (K-DUR) PO SCH (05:46)
[2016-04-12] MEDS: MAGNESIUM 1 GM/100 ML IVPB 100 ML IV SCH (05:46)
[2016-04-12] MEDS: POTASSIUM CL 10MEQ/50ML IVPB 50 ML IV SCH (05:46)
[2016-04-12 05:50] LABS: BAND NEUTROPHILS 1 %; BASOPHILS % (MANUAL) 0 %; EOSINOPHILS % (MANUAL) 0 %; LYMPHOCYTES % (MANUAL) 8 %; NEUTROPHILS % (MANUAL) 87 %; POIKILOCYTOSIS SLIGHT
[2016-04-12] MEDS: RT-BUDESONIDE NEBS 0.5 MG/2ML (PULMICORT) AMP INH SCH ×2 (07:21→22:04)
[2016-04-12] MEDS: BISACODYL 10 MG SUPP (DULCOLAX) PR SCH ×2 (07:55→21:00)
[2016-04-12] MEDS: DEXTROSE 10% IV SOLUTION 1,000 ML IV SCH (07:56)
--- NOTE | 2016-04-12 08:06 | Pulmonary Progress Note ---
Subjective Subjective/Events-last exam PT is doing better now. No complications noted. Exam Exam Vital Signs Date Time Temp Pulse Resp B/P Pulse Ox O2 Delivery O2 Flow Rate FiO2 04/12/16 07:27 100 04/12/16 07:21 95 3.00 04/12/16 07:00 105 04/12/16 03:30 97.4 102 14 136/86 100 High Flow NC 3.00 04/12/16 02:50 100 4.00 04/12/16 01:00 111 04/12/16 00:00 97.5 112 19 144/77 99 High Flow NC 6.00 04/11/16 22:51 100 6.00 04/11/16 22:00 105 17 155/89 99 High Flow NC 6.00 04/11/16 21:00 105 14 143/85 98 High Flow NC 6.00 04/11/16 20:00 99 6.00 04/11/16 20:00 110 24 132/77 100 High Flow NC 6.00 04/11/16 19:00 101 04/11/16 19:00 98.2 101 14 117/53 100 High Flow NC 6.00 04/11/16 18:58 100 6.00 04/11/16 18:53 100 6.00 04/11/16 16:00 117 21 140/81 100 High Flow NC 6.00 04/11/16 16:00 97.6 High Flow NC 6.00 04/11/16 16:00 99 6.00 04/11/16 15:00 116 19 151/92 100 High Flow NC 6.00 04/11/16 14:49 100 6.00 04/11/16 14:00 106 20 161/87 99 High Flow NC 6.00 04/11/16 13:00 111 04/11/16 13:00 109 21 181/85 98 High Flow NC 6.00 04/11/16 12:00 99 10.00 65 04/11/16 12:00 98.7 High Flow NC 6.00 04/11/16 11:00 122 39 117/59 100 FIO2 65.00 10.00 04/11/16 10:23 100 10.00 80 04/11/16 10:00 108 38 173/87 94 FIO2 65.00 10.00 04/11/16 09:00 112 13 133/79 100 FIO2 65.00 10.00 I & O 04/12/16 07:00 Intake Total 1790 ml Output Total 1825 ml Balance -35 ml General Appearance: No Apparent Distress HEENT: Other (mild thrush) Neck: Supple Respiratory: Decreased Breath Sounds Wheezing Cardiovascular: Systolic Murmur Tachycardia Gastrointestinal: normal bowel sounds non tender soft other (dressing in place and dry) Extremity: Non Tender No Calf Tenderness No Pedal Edema Neurologic/Psychiatric: Alert Oriented x3 Skin: Pallor Lymphatic: No Adenopathy Results Lab Laboratory Tests 04/10/16 15:10 04/11/16 04:15 04/12/16 05:00 Assessment/Plan Assessment/Plan Acute respiratory failure with aspiration - infection is improving -zosyn -SVN's Q4 metabolic encephalopathy -monitor Hypernatremia -improving -Continue 1/2 NS at 30 -TPN Sinus tach -monitor Small bowel obstruction s/p ex lap Inguinal hernia bilateral Acute renal failure/dehydration -IVF Will transfer to cardiac stepdown status Clinical Quality Measures DVT/VTE Risk/Contraindication: Risk Factor Score Per Nursin RFS Level Per Nursing on Admit: 4+=Very High GRETCHEN OLSEN DO Apr 12, 2016 08:06
[2016-04-12] MEDS ORDERED: LEVOTHYROXINE 50 MCG (LEVOTHROID) TAB PO NR (08:30)
--- NOTE | 2016-04-12 08:36 | Diagnostic Imaging Report ---
Clinical indication: Patient with shortness of air followup exam. Exam: Portable chest x-ray upright view. Comparison: Portable chest x-ray dated 04/11/2016. Findings: There is slightly hyperinflated lungs again seen with lucent areas involving the upper lung field which may be related to COPD. There is slight progression of left lung base consolidation/infiltrate and slight improved aeration of the medial right lung base. Increased lung markings seen bilaterally. There is no pleural effusion or pneumothorax. Pulmonary vasculature and cardiac silhouettes within normal limits. Stable postop changes to the chest with sternotomy wires and mediastinal clips. The remainder of this exam shows no significant interval change compared to the prior study of comparison. Impression: 1: There is slight progression of mild consolidation involving left lung base which may represent atelectasis versus infiltrate. 2: The remainder of this exam shows no significant interval change compared to the prior study of comparison. Dictated by: Dictated on workstation # [id number]
[2016-04-12] MEDS: NICOTINE 21 MG (NICODERM) PATCH TD SCH (08:39)
[2016-04-12] MEDS: meTOproloL SUCCINATE 50 MG (TOPROL XL) TAB PO SCH ×2 (08:39→21:14)
[2016-04-12] MEDS: PANTOPRAZOLE 40 MG/10 ML (PROTONIX) VIAL IV SCH ×2 (08:39→21:14)
[2016-04-12] MEDS: NICOTINE PATCH REMOVAL TP SCH (08:39)
--- NOTE | 2016-04-12 11:16 | Progress Note (SOAP) ---
Subjective Subjective/Events-last exam this note dated for 04/11/16. pt doing better. tolerating clears. multiple loose BM's. pain controlled. weak with poor ambulation. Objective Exam Vital Signs Date Time Temp Pulse Resp B/P Pulse Ox O2 Delivery O2 Flow Rate FiO2 04/12/16 08:00 97 3.00 04/12/16 08:00 97.6 110 20 136/95 97 Nasal Cannula 3.00 3.00 04/12/16 07:27 100 04/12/16 07:21 95 3.00 04/12/16 07:00 105 04/12/16 03:30 97.4 102 14 136/86 100 High Flow NC 3.00 04/12/16 02:50 100 4.00 04/12/16 01:00 111 04/12/16 00:00 97.5 112 19 144/77 99 High Flow NC 6.00 04/11/16 22:51 100 6.00 04/11/16 22:00 105 17 155/89 99 High Flow NC 6.00 04/11/16 21:00 105 14 143/85 98 High Flow NC 6.00 04/11/16 20:00 99 6.00 04/11/16 20:00 110 24 132/77 100 High Flow NC 6.00 04/11/16 19:00 101 04/11/16 19:00 98.2 101 14 117/53 100 High Flow NC 6.00 04/11/16 18:58 100 6.00 04/11/16 18:53 100 6.00 04/11/16 16:00 117 21 140/81 100 High Flow NC 6.00 04/11/16 16:00 97.6 High Flow NC 6.00 04/11/16 16:00 99 6.00 04/11/16 15:00 116 19 151/92 100 High Flow NC 6.00 04/11/16 14:49 100 6.00 04/11/16 14:00 106 20 161/87 99 High Flow NC 6.00 04/11/16 13:00 111 04/11/16 13:00 109 21 181/85 98 High Flow NC 6.00 04/11/16 12:00 99 10.00 65 04/11/16 12:00 98.7 High Flow NC 6.00 I & O 04/12/16 07:00 Intake Total 1790 ml Output Total 1825 ml Balance -35 ml Capillary Refill : General Appearance: No Apparent Distress HEENT: PERRL/EOMI Neck: Full Range of Motion Respiratory: Decreased Breath Sounds Rhonci Cardiovascular: Regular Rate, Rhythm Gastrointestinal: other (wound clean/dry) Extremity: Normal Capillary Refill Neurologic/Psychiatric: Alert Oriented x3 Skin: Normal Color Lymphatic: No Adenopathy Results Lab Laboratory Tests 04/12/16 05:00: Anion Gap 8, BUN/Creatinine Ratio 19, Band Neutrophils 1, Basophils # (Auto) 0.0 , Basophils % (Manual) 0, Basophils (%) (Auto) 0, Blood Urea Nitrogen 25H, Calcium Level 8.3L, Carbon Dioxide Level 33H, Chloride Level 102, Creatinine 1.29, Eosinophils # (Auto) 0.4H, Eosinophils % (Manual) 0, Eosinophils (%) (Auto ) 3, Estimat Glomerular Filtration Rate 57, Glucose Level 133H, Hematocrit 30L, Hemoglobin 9.2L, Lymphocytes # (Auto) 0.8L, Lymphocytes % (Manual) 8, Lymphocytes (%) (Auto) 7L, Magnesium Level 2.2, Mean Corpuscular Hemoglobin 33, Mean Corpuscular Hemoglobin Concent 31L, Mean Corpuscular Volume 107H, Mean Platelet Volume 11.6H, Monocytes # (Auto) 0.8, Monocytes % (Manual) 4, Monocytes (%) (Auto) 7, Neutrophils # (Auto) 9.1H, Neutrophils % (Manual) 87, Neutrophils (%) (Auto) 82H, Phosphorus Level 3.2, Platelet Count 221, Poikilocytosis SLIGHT, Potassium Level 3.8, Red Blood Count 2.81L, Red Cell Distribution Width 12.2, Sodium Level 143, Toxic Granulation 1+, White Blood Count 11.1H Microbiology 04/05/16 Blood Culture - Final, Complete No growth 04/04/16 Gram Stain - Final, Complete 04/04/16 Sputum Culture - Final, Complete Klebsiella Oxytoca 03/29/16 Urine Culture - Final, Complete Assessment/Plan Assessment/Plan Assess & Plan/Chief Complaint SBO s/p laparoscopic lysis of adhesions and small bowel resection. underlying cardiopulmonary disease and renal failure. continue supportive care. advance to dys 3 diet continue abx for suspected pneumonia. increase ambulation. Diagnosis/Problems: Clinical Quality Measures DVT/VTE Risk/Contraindication: Risk Factor Score Per Nursin RFS Level Per Nursing on Admit: 4+=Very High BRITTANY CHAPA MD Apr 12, 2016 11:16 am
[2016-04-12] MEDS: HYDROcodone/APAP 7.5 MG/325 MG (LORTAB, LORCET PLUS) TABLET PO PRN ×2 (11:23→17:45)
--- NOTE | 2016-04-12 11:40 | Physical Therapy Daily Note ---
PT Daily Note-Current Subjective Patient agrees to PT. Pain Numeric Pain Scale: 8 Location: Lower Location Body Site: Abdomen Pain Description: Pressure, Acute Mental Status Patient Orientation: Normal For Age Attachments: Oxygen, Helms Catheter, IV Transfers Functional [place] Measure 0=Not Assessed/NA 4=Minimal Assistance 1=Total Assistance 5=Supervision or Setup 2=Maximal Assistance 6=Modified [place] 3=Moderate Assistance 7=Complete IndependenceIRFPAI Quality Coding Scale 6 Independent with activity with or without an assistive device 5 Patient requires set up or clean up by helper. Patient completes activity by themselves 4 Supervision or touching assist (CGA). [place] provide cues , steadying assist 3 The helper provides less than half the effort to complete the activity 2 The helper provides more than half the effort to complete the activity 1 Dependent. The helper does all the effort to complete an activity 7 Patient refused to complete or attempt activity 9 The patient did not perform the activity before the current illness or injury 88 Not attempted due to Medical conditions or safety concerns Transfers (B, C, W/C) (FIM): 4 Scootin Sit to/from Stand: 4 Gait Training Gait (FIM): 2 Distance (FIM): 5=851-03 ft Distance: 50' Gait Level of Assist: 4 Gait Assistive Device: FWW slightly ataxic Assessment Patient tolerated treatment well and is up in recliner with needs met. PT to increase activity as tolerated by patient. PT Switchboard Wire Worker Helper Goals Care Home Goals PT Switchboard Wire Worker Helper Goals Time Frame: Apr 19, 2016 Transfers (B,C,W/C) (FIM): 6 Gait (FIM): 6 Gait distance (FIM): 3=150 ft Gait Level of Assist: 6 Gait Assistive Device: FWW, Cane Single Point PT Plan Treatment/Plan Treatment Plan: Continue Plan of Care Treatment Plan: Bed Mobility, Education, Functional Activity Kris, Functional Strength, Gait, Safety, Therapeutic Exercise, Transfers Treatment Duration: Apr 19, 2016 Visits Per Week: 5-6 Time/GCodes Time In: 1115 Time Out: 1125 Total Billed Treatment Time: 10 Total Billed Treatment 1 visit FA 10 min JESS LAZCANO PT Apr 12, 2016 11:40
--- NOTE | 2016-04-12 12:38 | Progress Note (SOAP) ---
Subjective Subjective/Events-last exam doing better, sitting upright, having multiple BM's, tolerating diet. still very weak and exertional SOB Objective Exam Vital Signs Date Time Temp Pulse Resp B/P Pulse Ox O2 Delivery O2 Flow Rate FiO2 04/12/16 12:00 97.5 108 20 133/87 97 Nasal Cannula 3.00 04/12/16 08:00 97 3.00 04/12/16 08:00 97.6 110 20 136/95 97 Nasal Cannula 3.00 3.00 04/12/16 07:27 100 04/12/16 07:21 95 3.00 04/12/16 07:00 105 04/12/16 03:30 97.4 102 14 136/86 100 High Flow NC 3.00 04/12/16 02:50 100 4.00 04/12/16 01:00 111 04/12/16 00:00 97.5 112 19 144/77 99 High Flow NC 6.00 04/11/16 22:51 100 6.00 04/11/16 22:00 105 17 155/89 99 High Flow NC 6.00 04/11/16 21:00 105 14 143/85 98 High Flow NC 6.00 04/11/16 20:00 99 6.00 04/11/16 20:00 110 24 132/77 100 High Flow NC 6.00 04/11/16 19:00 101 04/11/16 19:00 98.2 101 14 117/53 100 High Flow NC 6.00 04/11/16 18:58 100 6.00 04/11/16 18:53 100 6.00 04/11/16 16:00 117 21 140/81 100 High Flow NC 6.00 04/11/16 16:00 97.6 High Flow NC 6.00 04/11/16 16:00 99 6.00 04/11/16 15:00 116 19 151/92 100 High Flow NC 6.00 04/11/16 14:49 100 6.00 04/11/16 14:00 106 20 161/87 99 High Flow NC 6.00 04/11/16 13:00 111 04/11/16 13:00 109 21 181/85 98 High Flow NC 6.00 I & O 04/12/16 07:00 Intake Total 1790 ml Output Total 1825 ml Balance -35 ml Capillary Refill : General Appearance: No Apparent Distress HEENT: PERRL/EOMI Neck: Full Range of Motion Respiratory: Decreased Breath Sounds Rhonci Wheezing Cardiovascular: Regular Rate, Rhythm Gastrointestinal: normal bowel sounds soft other (incisions clean,dry) Extremity: Normal Capillary Refill Neurologic/Psychiatric: Alert Oriented x3 Skin: Normal Color Lymphatic: No Adenopathy Results Lab Laboratory Tests 04/12/16 05:00: Anion Gap 8, BUN/Creatinine Ratio 19, Band Neutrophils 1, Basophils # (Auto) 0.0 , Basophils % (Manual) 0, Basophils (%) (Auto) 0, Blood Urea Nitrogen 25H, Calcium Level 8.3L, Carbon Dioxide Level 33H, Chloride Level 102, Creatinine 1.29, Eosinophils # (Auto) 0.4H, Eosinophils % (Manual) 0, Eosinophils (%) (Auto ) 3, Estimat Glomerular Filtration Rate 57, Glucose Level 133H, Hematocrit 30L, Hemoglobin 9.2L, Lymphocytes # (Auto) 0.8L, Lymphocytes % (Manual) 8, Lymphocytes (%) (Auto) 7L, Magnesium Level 2.2, Mean Corpuscular Hemoglobin 33, Mean Corpuscular Hemoglobin Concent 31L, Mean Corpuscular Volume 107H, Mean Platelet Volume 11.6H, Monocytes # (Auto) 0.8, Monocytes % (Manual) 4, Monocytes (%) (Auto) 7, Neutrophils # (Auto) 9.1H, Neutrophils % (Manual) 87, Neutrophils (%) (Auto) 82H, Phosphorus Level 3.2, Platelet Count 221, Poikilocytosis SLIGHT, Potassium Level 3.8, Red Blood Count 2.81L, Red Cell Distribution Width 12.2, Sodium Level 143, Toxic Granulation 1+, White Blood Count 11.1H Microbiology 04/05/16 Blood Culture - Final, Complete No growth 04/04/16 Gram Stain - Final, Complete 04/04/16 Sputum Culture - Final, Complete Klebsiella Oxytoca 03/29/16 Urine Culture - Final, Complete Assessment/Plan Assessment/Plan Assess & Plan/Chief Complaint SBO s/p laparoscopic lysis of adhesions and small bowel resection. underlying cardiopulmonary disease and renal failure. continue supportive care. advance to dys 3 diet continue abx for suspected pneumonia. increase ambulation/PT. now on cardiac stepdown Diagnosis/Problems: Clinical Quality Measures DVT/VTE Risk/Contraindication: Risk Factor Score Per Nursin RFS Level Per Nursing on Admit: 4+=Very High BRITTANY CHAPA MD Apr 12, 2016 12:38 pm
--- NOTE | 2016-04-12 13:19 | Cardiology Progress Note ---
Subjective Subjective/Events-last exam patient is sitting in a chair, feeling better, still having some shortness of breath, no chest pain. Having abdominal pain. Review of Systems General: No Chills, No Night Sweats, No Fatigue, No Malaise, No Appetite, No Other HEENT: No Head Aches, No Visual Changes, No Eye Pain, No Ear Pain, No Dysphasia , No Sinus Congestion, No Post Nasal Drip, No Sore Throat, No Other Pulmonary: No Dyspnea, No Cough, No Pleuritic Chest Pain, No Other Objective-Cardiology Exam Last Set of Vital Signs Vital Signs 04/11/16 04/12/16 12:00 12:00 Temp 97.5 Pulse 108 Resp 20 B/P 133/87 Pulse Ox 97 O2 Delivery Nasal Cannula O2 Flow Rate 3.00 FiO2 65 Capillary Refill : I&O Intake and Output 04/12/16 00:00 Intake Total 2590 ml Output Total 1300 ml Balance 1290 ml Intake Oral 1290 ml IV Total 1300 ml Output Urine Total 1300 ml # Bowel Movements 12 General: Alert, Oriented X3, Cooperative, Mild Distress HEENT: Atraumatic Neck: Supple Lungs: Normal Air Movement, Other (bilateral rhonchi) Heart: Regular Rate, Normal S1, Normal S2, Other Abdomen: Soft, No Tenderness, Other (managed bowel sounds) Extremities: No Clubbing Skin: No Rashes, No Breakdown, Other Neuro: Other (following commands, doing better) Psych/Mental Status: Other Results Lab Laboratory Tests 04/12/16 05:00 A/P-Cardiology Admission Diagnosis Afib with RVR CAD HTN SBO Assessment/Plan Status post acute respiratory failure, better, better at this time, still having mild shortness of breath overall significantly better. Continue to monitor Hypernatremia, metabolic encephalopathy, improved. Continue to monitor. Status post hypotensive shock, blood pressure is better. Continue to monitor Small bowel obstruction, status post exploratory laparotomy, recovering slowly, managed by Dr. Stephens Acute on chronic renal failure, dehydration, continue to monitor renal function Paroxysmal atrial fibrillation, back to sinus rhythm, in sinus tachycardia, continue on beta blockers if tolerated. Continue to monitor closely. [id number] score of 5, yearly risk of stroke without OAC is 6.7%. restart Lovenox when tolerated. Need to be on NOAC prior to discharge Echocardiogram was of poor quality, there is questionable echogenic density in the left atrium, recommend DIAN, discussed it with the patient, he prefer to have it done as an outpatient with his primary spanish interpreter Dr. Galaviz CAD- history of CABG x 1 last year, done at [place]. Continue to monitor SHAYNA- history of bilat CEA in the past by Dr. Spencer. Continue to monitor as outpatient. Hx of CVA COPD History of pulmonary hypertension. Continue to monitor Tobaccoism Clinical Quality Measures DVT/VTE Risk/Contraindication: Risk Factor Score Per Nursin RFS Level Per Nursing on Admit: 4+=Very High PAYTON BUTCHER MD Apr 12, 2016 13:19
--- NOTE | 2016-04-12 19:25 | Progress Note (SOAP) ---
Subjective Subjective/Events-last exam Fwup small bowel obstruction--S/P exploratory lab with small bowel resection and reanastamosis, acute renal failure--worsened since surgery, dehydration, COPD, Atrial fibrillation with RVR, Post-op VDRF with aspiration pneumonia. Helms catheter had to be replaced due to urinary retention. Objective Exam Vital Signs Date Time Temp Pulse Resp B/P Pulse Ox O2 Delivery O2 Flow Rate FiO2 04/12/16 19:04 100 5.00 04/12/16 16:00 98.0 99 20 126/74 95 Nasal Cannula 4.00 04/12/16 13:27 88 3.00 04/12/16 13:00 106 04/12/16 12:00 97.5 108 20 133/87 97 Nasal Cannula 3.00 04/12/16 08:00 97 3.00 04/12/16 08:00 97.6 110 20 136/95 97 Nasal Cannula 3.00 3.00 04/12/16 07:27 100 04/12/16 07:21 95 3.00 04/12/16 07:00 105 04/12/16 03:30 97.4 102 14 136/86 100 High Flow NC 3.00 04/12/16 02:50 100 4.00 04/12/16 01:00 111 04/12/16 00:00 97.5 112 19 144/77 99 High Flow NC 6.00 04/11/16 22:51 100 6.00 04/11/16 22:00 105 17 155/89 99 High Flow NC 6.00 04/11/16 21:00 105 14 143/85 98 High Flow NC 6.00 04/11/16 20:00 99 6.00 04/11/16 20:00 110 24 132/77 100 High Flow NC 6.00 I & O 04/12/16 07:00 Intake Total 1790 ml Output Total 1825 ml Balance -35 ml Capillary Refill : General Appearance: No Apparent Distress Neck: Supple Respiratory: Decreased Breath Sounds Wheezing Cardiovascular: Systolic Murmur Gastrointestinal: normal bowel sounds non tender soft Extremity: Non Tender No Calf Tenderness No Pedal Edema Neurologic/Psychiatric: Alert Oriented x3 Skin: Normal Color Warm/Dry Results Lab Laboratory Tests 04/12/16 05:00: Anion Gap 8, BUN/Creatinine Ratio 19, Band Neutrophils 1, Basophils # (Auto) 0.0 , Basophils % (Manual) 0, Basophils (%) (Auto) 0, Blood Urea Nitrogen 25H, Calcium Level 8.3L, Carbon Dioxide Level 33H, Chloride Level 102, Creatinine 1.29, Eosinophils # (Auto) 0.4H, Eosinophils % (Manual) 0, Eosinophils (%) (Auto ) 3, Estimat Glomerular Filtration Rate 57, Glucose Level 133H, Hematocrit 30L, Hemoglobin 9.2L, Lymphocytes # (Auto) 0.8L, Lymphocytes % (Manual) 8, Lymphocytes (%) (Auto) 7L, Magnesium Level 2.2, Mean Corpuscular Hemoglobin 33, Mean Corpuscular Hemoglobin Concent 31L, Mean Corpuscular Volume 107H, Mean Platelet Volume 11.6H, Monocytes # (Auto) 0.8, Monocytes % (Manual) 4, Monocytes (%) (Auto) 7, Neutrophils # (Auto) 9.1H, Neutrophils % (Manual) 87, Neutrophils (%) (Auto) 82H, Phosphorus Level 3.2, Platelet Count 221, Poikilocytosis SLIGHT, Potassium Level 3.8, Red Blood Count 2.81L, Red Cell Distribution Width 12.2, Sodium Level 143, Toxic Granulation 1+, White Blood Count 11.1H Microbiology 04/05/16 Blood Culture - Final, Complete No growth 04/04/16 Gram Stain - Final, Complete 04/04/16 Sputum Culture - Final, Complete Klebsiella Oxytoca 03/29/16 Urine Culture - Final, Complete Assessment/Plan Assessment/Plan Assess & Plan/Chief Complaint 1. Small Bowel Obstruction--S/P exploratory lap by Dr. Stephens with SARAH and small bowel resection with re-anastamosis and post-op complications of aspiration pneumonia and bilateral inguinal hernias having to be reduced-- surgery advanced diet and tolerating well 2. Acute Renal Failure/Dehydration-- Cr improving 3. Acute Respiratory Failure with Post-op Aspiration--WBC count improving, on Zosyn, off BIPAP and on NC--looks better today 4. Hypomagnesemia--on magnesium replacement protocol, stable 5. Atrial Fibrillation with RVR--back in NSR but tachycardic--will change IV lopressor to oral metoprolol 6. Hypernatremia--improving 7. Hypokalemia--on potassium replacement 8. Weakness--up to chair and start PT 9. Urinary Retention--start urecholine Diagnosis/Problems: Clinical Quality Measures DVT/VTE Risk/Contraindication: Risk Factor Score Per Nursin RFS Level Per Nursing on Admit: 4+=Very High AIME CANO DO Apr 12, 2016 19:24
[2016-04-12] MEDS: ENOXAPARIN 40 MG/0.4 ML (LOVENOX) SYR SC SCH (21:14)
[2016-04-12] MEDS: BETHANECHOL 25 MG (URECHOLINE) TAB PO SCH (21:14)
[2016-04-13] VITALS (7 sets, daily range): BP systolic 111–130; BP diastolic 63–83
[2016-04-13] MEDS: RT-ALBUTEROL/IPRATROPIUM 3 ML (DUONEB) VIAL INH SCH ×6 (02:48→22:26)
[2016-04-13 04:51] LABS: BASOPHILS % (AUTO) 0 % (0-10); EOSINOPHILS # (AUTO) 0.3 10^3/uL (0.0-0.3); EOSINOPHILS % (AUTO) 3 % (0-10); LYMPHOCYTES # (AUTO) 1.1 X 10^3 (1.0-4.0); LYMPHOCYTES % (AUTO) 9 % (12-44); MEAN CORPUSCULAR HEMOGLOBIN 33 PG (25-34); MEAN CORPUSCULAR HGB CONC 30 G/DL (32-36); MEAN CORPUSCULAR VOLUME 109 FL (80-99); MEAN PLATELET VOLUME 11.8 FL (7.4-10.4); MONOCYTES # (AUTO) 0.7 X 10^3 (0.0-1.0); MONOCYTES % (AUTO) 6 % (0-12); NEUTROPHILS # (AUTO) 9.8 X 10^3 (1.8-7.8); NEUTROPHILS % (AUTO) 82 % (42-75); PLATELET COUNT 264 10^3/uL (130-400); RED BLOOD COUNT 2.74 10^6/uL (4.35-5.85); RED CELL DISTRIBUTION WIDTH 12.2 % (10.0-14.5); WHITE BLOOD COUNT 11.9 10^3/uL (4.3-11.0)
[2016-04-13 05:12] LABS: CALCIUM 8.4 MG/DL (8.5-10.1); CREATININE SERUM 1.24 MG/DL (0.60-1.30); MAGNESIUM 1.9 MG/DL (1.8-2.4); PHOSPHORUS 3.4 MG/DL (2.3-4.7); POTASSIUM 4.2 MMOL/L (3.6-5.0)
[2016-04-13] MEDS: NYSTATIN ORAL SUSP 5 ML UDC PO SCH ×4 (06:03→21:57)
[2016-04-13] MEDS: BETHANECHOL 25 MG (URECHOLINE) TAB PO SCH ×4 (06:03→20:40)
[2016-04-13] MEDS ORDERED: LEVOTHYROXINE 50 MCG (LEVOTHROID) TAB PO ONE (06:30)
--- NOTE | 2016-04-13 06:41 | Pulmonary Progress Note ---
Subjective Subjective/Events-last exam PT is doing much better. Exam Exam Vital Signs Date Time Temp Pulse Resp B/P Pulse Ox O2 Delivery O2 Flow Rate FiO2 04/13/16 03:55 97.8 96 18 123/63 99 Nasal Cannula 4.00 04/13/16 02:49 96 4.00 04/13/16 01:00 93 04/12/16 23:05 97.7 99 20 131/64 100 Nasal Cannula 4.00 04/12/16 22:04 100 4.00 04/12/16 22:04 100 4.00 04/12/16 19:50 99 4.00 04/12/16 19:04 100 5.00 04/12/16 19:00 99.6 105 18 145/80 99 Nasal Cannula 4.00 04/12/16 19:00 105 04/12/16 16:00 98.0 99 20 126/74 95 Nasal Cannula 4.00 04/12/16 13:27 88 3.00 04/12/16 13:00 106 04/12/16 12:00 97.5 108 20 133/87 97 Nasal Cannula 3.00 04/12/16 08:00 97 3.00 04/12/16 08:00 97.6 110 20 136/95 97 Nasal Cannula 3.00 3.00 04/12/16 07:27 100 04/12/16 07:21 95 3.00 04/12/16 07:00 105 I & O 04/13/16 07:00 Intake Total 700 ml Output Total 1560 ml Balance -860 ml General Appearance: No Apparent Distress HEENT: PERRL/EOMI Neck: Supple Respiratory: Decreased Breath Sounds Wheezing Cardiovascular: Systolic Murmur Gastrointestinal: normal bowel sounds non tender soft Extremity: Non Tender No Calf Tenderness No Pedal Edema Neurologic/Psychiatric: Alert Oriented x3 Skin: Normal Color Warm/Dry Lymphatic: No Adenopathy Results Lab Laboratory Tests 04/12/16 05:00 04/13/16 04:00 Assessment/Plan Assessment/Plan Acute respiratory failure with aspiration - infection is improving -zosyn -SVN's Q4 metabolic encephalopathy -monitor Hypernatremia -improving -Continue 1/2 NS at 30 -TPN Sinus tach -monitor Small bowel obstruction s/p ex lap Inguinal hernia bilateral Acute renal failure/dehydration -IVF PT is cardiac stepdown status Clinical Quality Measures DVT/VTE Risk/Contraindication: Risk Factor Score Per Nursin RFS Level Per Nursing on Admit: 4+=Very High GRETCHEN OLSEN DO Apr 13, 2016 06:41
[2016-04-13] MEDS: RT-BUDESONIDE NEBS 0.5 MG/2ML (PULMICORT) AMP INH SCH ×2 (06:51→19:19)
--- NOTE | 2016-04-13 08:56 | Cardiology Progress Note ---
Subjective Subjective/Events-last exam Patient is in bed. No new complaints. Complains of some mild abdominal discomfort, but overall improved. Tolerating PO intake without difficulty. Review of Systems General: No Night Sweats, No Fatigue, No Malaise HEENT: No Visual Changes, No Dysphasia, No Sore Throat Pulmonary: No Dyspnea, No Cough, No Pleuritic Chest Pain Cardiovascular: No: Chest Pain, Orthopnea, Palpitations Gastrointestinal: : Abdominal PainNo: Constipation, Diarrhea, Nausea, Vomiting Genitourinary: No Dysuria, No Frequency Musculoskeletal: No: back pain, neck pain Neurological: No: Change in speech, Confusion, Numbness, Weakness Objective-Cardiology Exam Last Set of Vital Signs Vital Signs 04/11/16 04/13/16 04/13/16 04/13/16 12:00 03:55 06:55 07:00 Temp 97.8 Pulse 99 Resp 18 B/P 123/63 Pulse Ox 96 O2 Delivery Nasal Cannula O2 Flow Rate 5.00 FiO2 65 Capillary Refill : I&O Intake and Output 04/13/16 00:00 Intake Total 800 ml Output Total 1675 ml Balance -875 ml Intake Oral 800 ml Output Urine Total 1675 ml # Bowel Movements 7 General: Alert, Oriented X3, Cooperative, Mild Distress HEENT: Atraumatic Neck: Supple Lungs: Normal Air Movement, Other (bilateral rhonchi) Heart: Regular Rate, Normal S1, Normal S2, Other Abdomen: Normal Bowel Sounds, Soft, No Tenderness Extremities: No Clubbing Skin: No Rashes, No Breakdown, Other Neuro: Normal Speech, Cranial Nerves 3-12 NL Psych/Mental Status: Mental Status NL, Mood NL, Other Results Lab Laboratory Tests 04/13/16 04:00 A/P-Cardiology Admission Diagnosis Afib with RVR CAD HTN SBO Assessment/Plan Status post acute respiratory failure, better, better at this time, still having mild shortness of breath,overall significantly better. Continue to monitor Hypernatremia, metabolic encephalopathy, improved. Continue to monitor. Status post hypotensive shock, blood pressure is better. Continue to monitor Small bowel obstruction, status post exploratory laparotomy, recovering slowly, managed by Dr. Kat [place] on chronic renal failure, dehydration, continue to monitor renal function Paroxysmal atrial fibrillation, back to sinus rhythm, in sinus tachycardia, continue on beta blockers if tolerated. Continue to monitor closely. [id number] score of 5, yearly risk of stroke without OAC is 6.7%. restart Lovenox when tolerated. Need to be on NOAC prior to discharge Echocardiogram was of poor quality, there is questionable echogenic density in the left atrium, recommend DIAN, discussed it with the patient, he prefer to have it done as an outpatient with his primary miscellaneous machine operator Dr. Galaviz CAD- history of CABG x 1 last year, done at [place]. Continue to monitor SHAYNA- history of bilat CEA in the past by Dr. Spencer. Continue to monitor as outpatient. Hx of CVA COPD History of pulmonary hypertension. Continue to monitor Tobaccoism Clinical Quality Measures DVT/VTE Risk/Contraindication: Risk Factor Score Per Nursin RFS Level Per Nursing on Admit: 4+=Very High DAWN OCONNELL Apr 13, 2016 08:56
[2016-04-13] MEDS: BISACODYL 10 MG SUPP (DULCOLAX) PR SCH ×2 (09:00→20:41)
--- NOTE | 2016-04-13 09:02 | Diagnostic Imaging Report ---
EXAMINATION: Portable erect AP chest at 0512 hours. INDICATION: Shortness of breath. FINDINGS: As noted on the prior exam of 04/12/2016, there is a small amount of atelectasis/infiltrate and fluid in the left lung base. There may also be a small amount of atelectasis/infiltrate in the right lower lobe. These findings are essentially no different than on the prior exam. The upper lungs remain clear. The central pulmonary vascularity is somewhat prominent but no different than on the previous study. The heart is stable in size. The sternotomy wires and surgical clips noted previously are again evident and no different. The left-sided PICC line remains in good position. The mediastinum is not widened. The osseous structures are intact. IMPRESSION: Stable chest. There has been no adverse change since the prior exam. Dictated by: Dictated on workstation # [id number]
[2016-04-13] MEDS: NICOTINE 21 MG (NICODERM) PATCH TD SCH (09:25)
[2016-04-13] MEDS: PANTOPRAZOLE 40 MG/10 ML (PROTONIX) VIAL IV SCH ×2 (09:26→20:40)
[2016-04-13] MEDS: meTOproloL SUCCINATE 50 MG (TOPROL XL) TAB PO SCH ×2 (09:26→20:40)
--- NOTE | 2016-04-13 09:27 | Cardiology Progress Note ---
Subjective Subjective/Events-last exam patient is laying down in bed, feeling better, still having generalized weakness. Denied any chest pain. Review of Systems General: No Chills, No Night Sweats, No Fatigue, No Malaise, No Appetite, No Other HEENT: No Head Aches, No Visual Changes, No Eye Pain, No Ear Pain, No Dysphasia , No Sinus Congestion, No Post Nasal Drip, No Sore Throat, No Other Pulmonary: DyspneaNo Cough, No Pleuritic Chest Pain, No Other Cardiovascular: No: Chest Pain, Edema, Lt Headedness, Orthopnea, Other, Palpitations, Paroxysmal Noc. Dyspnea Objective-Cardiology Exam Last Set of Vital Signs Vital Signs 04/11/16 04/13/16 12:00 08:55 Temp 99.0 Pulse 113 Resp 30 B/P 114/79 Pulse Ox 93 O2 Delivery High Flow NC O2 Flow Rate 5.00 FiO2 65 Capillary Refill : I&O Intake and Output 04/13/16 00:00 Intake Total 800 ml Output Total 1675 ml Balance -875 ml Intake Oral 800 ml Output Urine Total 1675 ml # Bowel Movements 7 General: Alert, Oriented X3, Cooperative, Mild Distress HEENT: Atraumatic Neck: Supple Lungs: Clear to Auscultation, Normal Air Movement Heart: Normal S1, Normal S2, Other (tachycardia) Abdomen: Soft, No Tenderness, Other (mildly decreased bowel sounds) Extremities: No Clubbing Skin: No Rashes, No Breakdown, Other Neuro: Normal Speech, Cranial Nerves 3-12 NL Psych/Mental Status: Mental Status NL, Mood NL, Other Results Lab Laboratory Tests 04/13/16 04:00 A/P-Cardiology Admission Diagnosis Afib with RVR CAD HTN SBO Assessment/Plan Status post acute respiratory failure, better, better at this time, still having mild shortness of breath, improving, continue to monitor Hypernatremia, metabolic encephalopathy, improved. Continue to monitor. Status post hypotensive shock, blood pressure is better. Continue to monitor Small bowel obstruction, status post exploratory laparotomy with lysis of adhesions, recovering slowly, managed by Dr. Kat Birmingham on chronic renal failure, dehydration, improving, continue to monitor Paroxysmal atrial fibrillation, back to sinus rhythm, in sinus tachycardia, IV beta blockers were discontinued, he was started on Toprol-XL 50 mg twice daily, slightly tachycardic at rest. Continue to monitor heart rate and adjust medication as needed. [id number] score of 5, yearly risk of stroke without OAC is 6.7%. restart Lovenox when tolerated. Need to be on NOAC prior to discharge Echocardiogram was of poor quality, there is questionable echogenic density in the left atrium, recommend DIAN, discussed it with the patient, he prefer to have it done as an outpatient with his primary face and fill packer Dr. Galaviz CAD- history of CABG x 1 last year, done at [place]. Continue to monitor SHAYNA- history of bilat CEA in the past by Dr. Spencer. Continue to monitor as outpatient. Hx of CVA COPD History of pulmonary hypertension. Continue to monitor Tobaccoism Clinical Quality Measures DVT/VTE Risk/Contraindication: Risk Factor Score Per Nursin RFS Level Per Nursing on Admit: 4+=Very High PAYTON BUTCHER MD Apr 13, 2016 09:27
[2016-04-13] MEDS: CATHETER FLUSH 10 ML SYR IV PRN (09:30)
[2016-04-13] MEDS: NICOTINE PATCH REMOVAL TP SCH (09:36)
[2016-04-13] MEDS: ZINC OXIDE 20% OINT 30 GM TUBE TOP SCH (09:46)
--- NOTE | 2016-04-13 14:16 | Physical Therapy Daily Note ---
PT Daily Note-Current Subjective Pt denies pain. Pt reports he is "spent" from trying to get up and go to commode (I). Pt explains, upon attempt he was unable to complete so he lay his body across the bed and stayed that way until someone came in. Pt states several times, that he wishes he could walk but he just can't. Pt agreeable to recover x 10 min then try to perform activity as tolerated. Mental Status Patient Orientation: Person, Place Transfers Functional [place] Measure 0=Not Assessed/NA 4=Minimal Assistance 1=Total Assistance 5=Supervision or Setup 2=Maximal Assistance 6=Modified [place] 3=Moderate Assistance 7=Complete IndependenceIRFPAI Quality Coding Scale 6 Independent with activity with or without an assistive device 5 Patient requires set up or clean up by helper. Patient completes activity by themselves 4 Supervision or touching assist (CGA). [place] provide cues , steadying assist 3 The helper provides less than half the effort to complete the activity 2 The helper provides more than half the effort to complete the activity 1 Dependent. The helper does all the effort to complete an activity 7 Patient refused to complete or attempt activity 9 The patient did not perform the activity before the current illness or injury 88 Not attempted due to Medical conditions or safety concerns Pt requires min-mod A for LE and transfers in/out of bed. Max A for scooting up in bed. Gait Training Gait Assistive Device: FWW Pt stood bedside 2x with FWW for support and SBA. Pt performed turn with FWW for transfer to commode. Exercises Supine Ex: Ankle pumps, Quad Set Supine Reps: 20 Treatments Treatment consisted of standing bedside, transfer to commode and transfer back to bed. Encouraged pt to go to recliner, pt declined despite multiple attempts to persuade pt. Assessment Current Status: Fair Progress Pt participation limited today by fatigue due to toileting. Pt SOB but O2 sat 96%. O2 per nasal canula throughout the treatment, nursing present during treatment as well. Pt back to bed with call light and all needs met. PT Skilled Nursing Goals Skilled Nursing Goals PT External Grinder Goals Time Frame: Apr 19, 2016 Transfers (B,C,W/C) (FIM): 6 Gait (FIM): 6 Gait distance (FIM): 3=150 ft Gait Level of Assist: 6 Gait Assistive Device: FWW, Cane Single Point PT Plan Treatment/Plan Treatment Plan: Continue Plan of Care Treatment Plan: Bed Mobility, Education, Functional Activity Kris, Functional Strength, Gait, Safety, Therapeutic Exercise, Transfers Treatment Duration: Apr 19, 2016 Visits Per Week: 5-6 Time/GCodes Time In: 915 Time Out: 950 Total Billed Treatment Time: 30 Total Billed Treatment 1, FA 30 min SOLEDAD BEARDEN Apr 13, 2016 14:16
[2016-04-13] MEDS: HYDROcodone/APAP 7.5 MG/325 MG (LORTAB, LORCET PLUS) TABLET PO PRN ×3 (14:21→21:55)
--- NOTE | 2016-04-13 15:40 | Progress Note (SOAP) ---
Subjective Subjective/Events-last exam doing well. tolerating diet and having multiple BM's, pain controlled. still has exertional SOB. Objective Exam Vital Signs Date Time Temp Pulse Resp B/P Pulse Ox O2 Delivery O2 Flow Rate FiO2 04/13/16 14:21 93 5.00 04/13/16 13:00 101 04/13/16 11:58 99.1 102 26 124/68 High Flow NC 5.00 04/13/16 10:21 94 5.00 04/13/16 08:55 99.0 113 30 114/79 93 High Flow NC 5.00 04/13/16 08:00 94 5.00 04/13/16 07:00 99 04/13/16 06:55 96 5.00 04/13/16 06:49 90 4.00 04/13/16 03:55 97.8 96 18 123/63 99 Nasal Cannula 4.00 04/13/16 02:49 96 4.00 04/13/16 01:00 93 04/12/16 23:05 97.7 99 20 131/64 100 Nasal Cannula 4.00 04/12/16 22:04 100 4.00 04/12/16 22:04 100 4.00 04/12/16 19:50 99 4.00 04/12/16 19:04 100 5.00 04/12/16 19:00 99.6 105 18 145/80 99 Nasal Cannula 4.00 04/12/16 19:00 105 04/12/16 16:00 98.0 99 20 126/74 95 Nasal Cannula 4.00 I & O 04/13/16 07:00 Intake Total 700 ml Output Total 1560 ml Balance -860 ml Capillary Refill : General Appearance: No Apparent Distress HEENT: PERRL/EOMI Neck: Full Range of Motion Respiratory: Chest Non Tender Decreased Breath Sounds Rhonci Wheezing Cardiovascular: Regular Rate, Rhythm Gastrointestinal: normal bowel sounds soft other (wound clean/dry) Extremity: Normal Capillary Refill Neurologic/Psychiatric: Alert Oriented x3 Skin: Normal Color Lymphatic: No Adenopathy Results Lab Laboratory Tests 04/13/16 04:00: Anion Gap 10, BUN/Creatinine Ratio 18, Basophils # (Auto) 0.0, Basophils (%) ( Auto) 0, Blood Urea Nitrogen 22H, Calcium Level 8.4L, Carbon Dioxide Level 31, Chloride Level 103, Creatinine 1.24, Eosinophils # (Auto) 0.3, Eosinophils (%) ( Auto) 3, Estimat Glomerular Filtration Rate 60, Glucose Level 76, Hematocrit 30L , Hemoglobin 8.9L, Lymphocytes # (Auto) 1.1, Lymphocytes (%) (Auto) 9L, Magnesium Level 1.9, Mean Corpuscular Hemoglobin 33, Mean Corpuscular Hemoglobin Concent 30L, Mean Corpuscular Volume 109H, Mean Platelet Volume 11.8H , Monocytes # (Auto) 0.7, Monocytes (%) (Auto) 6, Neutrophils # (Auto) 9.8H, Neutrophils (%) (Auto) 82H, Phosphorus Level 3.4, Platelet Count 264, Potassium Level 4.2, Red Blood Count 2.74L, Red Cell Distribution Width 12.2, Sodium Level 144, White Blood Count 11.9H Microbiology 04/05/16 Blood Culture - Final, Complete No growth 04/04/16 Gram Stain - Final, Complete 04/04/16 Sputum Culture - Final, Complete Klebsiella Oxytoca 03/29/16 Urine Culture - Final, Complete Assessment/Plan Assessment/Plan Assess & Plan/Chief Complaint SBO s/p laparoscopic lysis of adhesions and small bowel resection. underlying cardiopulmonary disease and renal failure. continue supportive care. advance to dys 3 diet continue abx for suspected pneumonia. increase ambulation/PT. now on cardiac stepdown. floor when ok with pulm/cardio/ PMD and bed available. Diagnosis/Problems: Clinical Quality Measures DVT/VTE Risk/Contraindication: Risk Factor Score Per Nursin RFS Level Per Nursing on Admit: 4+=Very High BRITTANY CHAPA MD Apr 13, 2016 3:40 pm
--- NOTE | 2016-04-13 18:50 | Progress Note (SOAP) ---
Subjective Subjective/Events-last exam Fwup small bowel obstruction--S/P exploratory lab with small bowel resection and reanastamosis, acute renal failure--worsened since surgery, dehydration, COPD, Atrial fibrillation with RVR, Post-op VDRF with aspiration pneumonia. Eating well and feeling much better. Objective Exam Vital Signs Date Time Temp Pulse Resp B/P Pulse Ox O2 Delivery O2 Flow Rate FiO2 04/13/16 16:09 98.9 99 20 128/74 94 Nasal Cannula 4.00 04/13/16 14:21 93 5.00 04/13/16 13:00 101 04/13/16 11:58 99.1 102 26 124/68 High Flow NC 5.00 04/13/16 10:21 94 5.00 04/13/16 08:55 99.0 113 30 114/79 93 High Flow NC 5.00 04/13/16 08:00 94 5.00 04/13/16 07:00 99 04/13/16 06:55 96 5.00 04/13/16 06:49 90 4.00 04/13/16 03:55 97.8 96 18 123/63 99 Nasal Cannula 4.00 04/13/16 02:49 96 4.00 04/13/16 01:00 93 04/12/16 23:05 97.7 99 20 131/64 100 Nasal Cannula 4.00 04/12/16 22:04 100 4.00 04/12/16 22:04 100 4.00 04/12/16 19:50 99 4.00 04/12/16 19:04 100 5.00 04/12/16 19:00 99.6 105 18 145/80 99 Nasal Cannula 4.00 04/12/16 19:00 105 I & O 04/13/16 07:00 Intake Total 700 ml Output Total 1560 ml Balance -860 ml Capillary Refill : General Appearance: No Apparent Distress Neck: Supple Respiratory: Crackles Decreased Breath Sounds Cardiovascular: Systolic Murmur Tachycardia Gastrointestinal: normal bowel sounds non tender soft other (dressing dry and in place) Extremity: Non Tender No Calf Tenderness No Pedal Edema Neurologic/Psychiatric: Alert Oriented x3 Results Lab Laboratory Tests 04/13/16 04:00: Anion Gap 10, BUN/Creatinine Ratio 18, Basophils # (Auto) 0.0, Basophils (%) ( Auto) 0, Blood Urea Nitrogen 22H, Calcium Level 8.4L, Carbon Dioxide Level 31, Chloride Level 103, Creatinine 1.24, Eosinophils # (Auto) 0.3, Eosinophils (%) ( Auto) 3, Estimat Glomerular Filtration Rate 60, Glucose Level 76, Hematocrit 30L , Hemoglobin 8.9L, Lymphocytes # (Auto) 1.1, Lymphocytes (%) (Auto) 9L, Magnesium Level 1.9, Mean Corpuscular Hemoglobin 33, Mean Corpuscular Hemoglobin Concent 30L, Mean Corpuscular Volume 109H, Mean Platelet Volume 11.8H , Monocytes # (Auto) 0.7, Monocytes (%) (Auto) 6, Neutrophils # (Auto) 9.8H, Neutrophils (%) (Auto) 82H, Phosphorus Level 3.4, Platelet Count 264, Potassium Level 4.2, Red Blood Count 2.74L, Red Cell Distribution Width 12.2, Sodium Level 144, White Blood Count 11.9H Microbiology 04/05/16 Blood Culture - Final, Complete No growth 04/04/16 Gram Stain - Final, Complete 04/04/16 Sputum Culture - Final, Complete Klebsiella Oxytoca 03/29/16 Urine Culture - Final, Complete Assessment/Plan Assessment/Plan Assess & Plan/Chief Complaint 1. Small Bowel Obstruction--S/P exploratory lap by Dr. Stephens with SARAH and small bowel resection with re-anastamosis and post-op complications of aspiration pneumonia and bilateral inguinal hernias having to be reduced-- surgery advanced diet and tolerating well 2. Acute Renal Failure/Dehydration-- Cr improving 3. Acute Respiratory Failure with Post-op Aspiration--off Zosyn, off BIPAP and on NC 4. Hypomagnesemia--on magnesium replacement protocol, stable 5. Atrial Fibrillation with RVR--back in NSR but tachycardic--on oral metoprolol 6. Hypernatremia--improving 7. Hypokalemia--on potassium replacement 8. Weakness--up to chair and start PT, Acute Rehab evaluation 9. Urinary Retention- urecholine started--will try to DC ortiz catheter tomorrow Diagnosis/Problems: Clinical Quality Measures DVT/VTE Risk/Contraindication: Risk Factor Score Per Nursin RFS Level Per Nursing on Admit: 4+=Very High AIME CANO DO Apr 13, 2016 18:50
[2016-04-13] MEDS: ENOXAPARIN 40 MG/0.4 ML (LOVENOX) SYR SC SCH (20:40)
[2016-04-14] MEDS: RT-ALBUTEROL/IPRATROPIUM 3 ML (DUONEB) VIAL INH SCH ×2 (02:27→06:39)
[2016-04-14 03:59] VITALS: BP 135/84
[2016-04-14 04:02] LABS: BASOPHILS % (AUTO) 0 % (0-10); EOSINOPHILS # (AUTO) 0.1 10^3/uL (0.0-0.3); EOSINOPHILS % (AUTO) 1 % (0-10); LYMPHOCYTES # (AUTO) 1.1 X 10^3 (1.0-4.0); LYMPHOCYTES % (AUTO) 9 % (12-44); MEAN CORPUSCULAR HEMOGLOBIN 33 PG (25-34); MEAN CORPUSCULAR HGB CONC 30 G/DL (32-36); MEAN CORPUSCULAR VOLUME 111 FL (80-99); MEAN PLATELET VOLUME 11.3 FL (7.4-10.4); MONOCYTES # (AUTO) 0.9 X 10^3 (0.0-1.0); MONOCYTES % (AUTO) 7 % (0-12); NEUTROPHILS # (AUTO) 10.3 X 10^3 (1.8-7.8); NEUTROPHILS % (AUTO) 83 % (42-75); PLATELET COUNT 295 10^3/uL (130-400); RED BLOOD COUNT 2.49 10^6/uL (4.35-5.85); WHITE BLOOD COUNT 12.5 10^3/uL (4.3-11.0)
[2016-04-14 04:23] LABS: CALCIUM 8.3 MG/DL (8.5-10.1); CREATININE SERUM 1.49 MG/DL (0.60-1.30); MAGNESIUM 1.5 MG/DL (1.8-2.4); PHOSPHORUS 3.6 MG/DL (2.3-4.7); POTASSIUM 4.3 MMOL/L (3.6-5.0)
[2016-04-14] MEDS: NYSTATIN ORAL SUSP 5 ML UDC PO SCH ×2 (05:32→13:24)
[2016-04-14] MEDS: BETHANECHOL 25 MG (URECHOLINE) TAB PO SCH ×2 (05:32→13:24)
[2016-04-14] MEDS: RT-BUDESONIDE NEBS 0.5 MG/2ML (PULMICORT) AMP INH SCH (06:39)
--- NOTE | 2016-04-14 07:07 | Cardiology Progress Note ---
Subjective Subjective/Events-last exam patient sitting in a chair, still having some shortness of breath, no chest pain was reported. No palpitation. Review of Systems General: No Chills, No Night Sweats, No Fatigue, No Malaise, No Appetite, No Other HEENT: No Head Aches, No Visual Changes, No Eye Pain, No Ear Pain, No Dysphasia , No Sinus Congestion, No Post Nasal Drip, No Sore Throat, No Other Pulmonary: DyspneaNo Cough, No Pleuritic Chest Pain, No Other Cardiovascular: No: Chest Pain, Edema, Lt Headedness, Orthopnea, Other, Palpitations, Paroxysmal Noc. Dyspnea Objective-Cardiology Exam Last Set of Vital Signs Vital Signs 04/11/16 04/14/16 04/14/16 12:00 03:59 06:44 Temp 98.1 Pulse 96 Resp 18 B/P 135/84 Pulse Ox 94 O2 Delivery Nasal Cannula O2 Flow Rate 5.00 FiO2 65 Capillary Refill : I&O Intake and Output 04/14/16 00:00 Intake Total 1210 ml Output Total 1535 ml Balance -325 ml Intake Oral 1210 ml Output Urine Total 1535 ml # Bowel Movements 6 General: Alert, Oriented X3, Cooperative, Mild Distress HEENT: Atraumatic Neck: Supple Lungs: Clear to Auscultation, Normal Air Movement Heart: Normal S1, Normal S2, Other (tachycardia) Abdomen: Soft, No Tenderness, Other (mildly decreased bowel sounds) Extremities: No Clubbing Skin: No Rashes, No Breakdown, Other Neuro: Normal Speech, Cranial Nerves 3-12 NL Psych/Mental Status: Mental Status NL, Mood NL, Other Results Lab Laboratory Tests 04/14/16 03:50 A/P-Cardiology Admission Diagnosis Afib with RVR CAD HTN SBO Assessment/Plan Status post acute respiratory failure, improving, still having some shortness of breath, continue with current treatment. Worsening renal function, status post episode of acute renal failure, educated on increasing his fluid intake, continue to monitor renal function closely. Hypomagnesemia, replace and monitor. Status post hypotensive shock, blood pressure is better. Continue to monitor Small bowel obstruction, status post exploratory laparotomy with lysis of adhesions, recovering slowly, managed by Dr. Stephens Paroxysmal atrial fibrillation, back to sinus rhythm, in sinus tachycardia, IV beta blockers were discontinued, he was started on Toprol-XL 50 mg twice daily, slightly tachycardic at rest. Continue to monitor heart rate and adjust medication as needed. [id number] score of 5, yearly risk of stroke without OAC is 6.7%. restart Lovenox when tolerated. Need to be on NOAC prior to discharge Echocardiogram was of poor quality, there is questionable echogenic density in the left atrium, recommend DIAN, discussed it with the patient, he prefer to have it done as an outpatient with his primary room inspector Dr. Galaviz CAD- history of CABG x 1 last year, done at [place]. Continue to monitor SHAYNA- history of bilat CEA in the past by Dr. Spencer. Continue to monitor as outpatient. Hx of CVA COPD History of pulmonary hypertension. Continue to monitor Tobaccoism Clinical Quality Measures DVT/VTE Risk/Contraindication: Risk Factor Score Per Nursin RFS Level Per Nursing on Admit: 4+=Very High PAYTON BUTCHER MD Apr 14, 2016 07:07
--- NOTE | 2016-04-14 07:20 | Diagnostic Imaging Report ---
INDICATION: Respiratory distress. Portable chest 4:27 AM FINDINGS: There are postop changes from median sternotomy. Left upper extremity PICC line tip projects over the SVC. Heart size and pulmonary vascularity are normal. Lungs are clear. IMPRESSION: No acute abnormalities in the chest. No change from previous day. Dictated by: Dictated on workstation # [id number]
--- NOTE | 2016-04-14 07:46 | Pulmonary Progress Note ---
Subjective Subjective/Events-last exam PT is looking much better. No complications noted. Exam Exam Vital Signs Date Time Temp Pulse Resp B/P Pulse Ox O2 Delivery O2 Flow Rate FiO2 04/14/16 06:44 94 5.00 04/14/16 06:40 94 5.00 04/14/16 03:59 98.1 96 18 135/84 96 Nasal Cannula 4.00 04/14/16 02:28 92 5.00 04/14/16 01:00 92 04/14/16 00:55 76 04/13/16 23:55 97.9 104 18 111/83 97 Nasal Cannula 4.00 04/13/16 22:26 92 5.00 04/13/16 22:03 98.1 100 20 130/74 99 Room Air 4.00 4.00 04/13/16 20:25 99 4.00 04/13/16 20:00 98.2 95 20 126/71 97 Room Air 4.00 04/13/16 19:24 94 5.00 04/13/16 19:19 94 5.00 04/13/16 19:00 98 04/13/16 16:09 98.9 99 20 128/74 94 Nasal Cannula 4.00 04/13/16 14:21 93 5.00 04/13/16 13:00 101 04/13/16 11:58 99.1 102 26 124/68 High Flow NC 5.00 04/13/16 10:21 94 5.00 04/13/16 08:55 99.0 113 30 114/79 93 High Flow NC 5.00 04/13/16 08:00 94 5.00 I & O 04/14/16 06:59 Intake Total 1360 ml Output Total 1025 ml Balance 335 ml General Appearance: No Apparent Distress HEENT: PERRL/EOMI Neck: Supple Respiratory: Crackles Decreased Breath Sounds Cardiovascular: Systolic Murmur Tachycardia Gastrointestinal: normal bowel sounds non tender soft other (dressing dry and in place) Extremity: Non Tender No Calf Tenderness No Pedal Edema Neurologic/Psychiatric: Alert Oriented x3 Skin: Normal Color Lymphatic: No Adenopathy Results Lab Laboratory Tests 04/13/16 04:00 04/14/16 03:50 Assessment/Plan Assessment/Plan Acute respiratory failure with aspiration - infection is improving -zosyn - pt is off Abx now -SVN's Q4 metabolic encephalopathy - improved -monitor Small bowel obstruction s/p ex lap Inguinal hernia bilateral Acute renal failure/dehydration -IVF PT is cardiac stepdown status Guevara make him 4th floor status or Rehab Clinical Quality Measures DVT/VTE Risk/Contraindication: Risk Factor Score Per Nursin RFS Level Per Nursing on Admit: 4+=Very High GRETCHEN OLSEN DO Apr 14, 2016 07:46
[2016-04-14 08:00] VITALS: BP 120/78
[2016-04-14] MEDS ORDERED: AUGMENTIN 875 MG TAB (AMOXICILLIN/CLAVULANATE) PO SCH (08:37)
[2016-04-14] MEDS: PANTOPRAZOLE 40 MG/10 ML (PROTONIX) VIAL IV SCH (08:46)
[2016-04-14] MEDS: meTOproloL SUCCINATE 50 MG (TOPROL XL) TAB PO SCH (08:46)
[2016-04-14] MEDS: NICOTINE 21 MG (NICODERM) PATCH TD SCH (08:47)
[2016-04-14] MEDS: NICOTINE PATCH REMOVAL TP SCH (08:47)
[2016-04-14] MEDS: BISACODYL 10 MG SUPP (DULCOLAX) PR SCH (08:48)
[2016-04-14] MEDS: MAGNESIUM 1 GM/100 ML IVPB 100 ML IV SCH ×2 (08:57→10:15)
[2016-04-14] MEDS: HYDROcodone/APAP 7.5 MG/325 MG (LORTAB, LORCET PLUS) TABLET PO PRN (13:25)
--- NOTE | 2016-04-14 17:35 | Progress Note (SOAP) ---
Subjective Subjective/Events-last exam Fwup small bowel obstruction--S/P exploratory lab with small bowel resection and reanastamosis, acute renal failure--worsened since surgery, dehydration, COPD, Atrial fibrillation with RVR, Post-op VDRF with aspiration pneumonia. Diarrhea improving. Just had catheter taken out. Has been accepted for rehab. Objective Exam Vital Signs Date Time Temp Pulse Resp B/P Pulse Ox O2 Delivery O2 Flow Rate FiO2 04/14/16 10:26 92 3.00 04/14/16 08:00 97.8 96 16 120/78 99 Nasal Cannula 4.00 04/14/16 08:00 96 3.00 04/14/16 07:00 94 04/14/16 06:44 94 5.00 04/14/16 06:40 94 5.00 04/14/16 03:59 98.1 96 18 135/84 96 Nasal Cannula 4.00 04/14/16 02:28 92 5.00 04/14/16 01:00 92 04/14/16 00:55 76 04/13/16 23:55 97.9 104 18 111/83 97 Nasal Cannula 4.00 04/13/16 22:26 92 5.00 04/13/16 22:03 98.1 100 20 130/74 99 Room Air 4.00 4.00 04/13/16 20:25 99 4.00 04/13/16 20:00 98.2 95 20 126/71 97 Room Air 4.00 04/13/16 19:24 94 5.00 04/13/16 19:19 94 5.00 04/13/16 19:00 98 I & O 04/14/16 07:00 Intake Total 1360 ml Output Total 1025 ml Balance 335 ml Capillary Refill : General Appearance: No Apparent Distress Neck: Supple Respiratory: Lungs Clear Cardiovascular: Systolic Murmur Tachycardia Gastrointestinal: normal bowel sounds non tender soft other (dry dressing in place) Extremity: Non Tender No Calf Tenderness No Pedal Edema Neurologic/Psychiatric: Alert Oriented x3 Results Lab Laboratory Tests 04/14/16 03:50: Anion Gap 9, BUN/Creatinine Ratio 15, Basophils # (Auto) 0.0, Basophils (%) ( Auto) 0, Blood Urea Nitrogen 22H, Calcium Level 8.3L, Carbon Dioxide Level 30, Chloride Level 105, Creatinine 1.49H, Eosinophils # (Auto) 0.1, Eosinophils (%) (Auto) 1, Estimat Glomerular Filtration Rate 48, Glucose Level 89, Hematocrit 28L, Hemoglobin 8.2L, Lymphocytes # (Auto) 1.1, Lymphocytes (%) (Auto) 9L, Magnesium Level 1.5L, Mean Corpuscular Hemoglobin 33, Mean Corpuscular Hemoglobin Concent 30L, Mean Corpuscular Volume 111H, Mean Platelet Volume 11.3H , Monocytes # (Auto) 0.9, Monocytes (%) (Auto) 7, Neutrophils # (Auto) 10.3H, Neutrophils (%) (Auto) 83H, Phosphorus Level 3.6, Platelet Count 295, Potassium Level 4.3, Red Blood Count 2.49L, Red Cell Distribution Width 12.0, Sodium Level 144, White Blood Count 12.5H 04/14/16 05:34: Glucometer 81 Microbiology 04/05/16 Blood Culture - Final, Complete No growth 04/04/16 Gram Stain - Final, Complete 04/04/16 Sputum Culture - Final, Complete Klebsiella Oxytoca 03/29/16 Urine Culture - Final, Complete Assessment/Plan Assessment/Plan Assess & Plan/Chief Complaint 1. Small Bowel Obstruction--S/P exploratory lap by Dr. Stephens with SARAH and small bowel resection with re-anastamosis and post-op complications of aspiration pneumonia and bilateral inguinal hernias having to be reduced-- surgery advanced diet and tolerating well 2. Acute Renal Failure/Dehydration-- Cr improving 3. Acute Respiratory Failure with Post-op Aspiration--off Zosyn, off BIPAP and on NC but augmentin started due to elevating WBC count 4. Hypomagnesemia--on magnesium replacement protocol, stable 5. Atrial Fibrillation with RVR--back in NSR but tachycardic--on oral metoprolol 6. Hypernatremia--improved 7. Hypokalemia--on potassium replacement 8. Weakness-- Acute Rehab today 9. Urinary Retention- urecholine started--ortiz catheter DCed Diagnosis/Problems: Clinical Quality Measures DVT/VTE Risk/Contraindication: Risk Factor Score Per Nursin RFS Level Per Nursing on Admit: 4+=Very High AIME CANO DO Apr 14, 2016 17:35
[2016-04-15] MEDS ORDERED: ACET325T38 PO (09:15)
[2016-04-15] MEDS ORDERED: LEVO50TA6 PO (09:15)
[2016-04-15] MEDS ORDERED: VITA1TAB PO (09:15)
[2016-04-15] MEDS ORDERED: MAGN1PIG IV (09:15)
[2016-04-15] MEDS ORDERED: HYDR-3812 PO (09:15)
[2016-04-15] MEDS ORDERED: METO100T2 PO (09:15)
[2016-04-15] MEDS ORDERED: ESOM20CA32 PO (09:15)
[2016-04-15] MEDS ORDERED: DIPH50VI2 IV (09:15)
[2016-04-15] MEDS ORDERED: ASP81TEC PO (09:15)
[2016-04-15] MEDS ORDERED: SPIR25TA3 PO (09:15)
[2016-04-15] MEDS ORDERED: MULT-974 PO (09:15)
[2016-04-15] MEDS ORDERED: FLUT9.9S NS (09:15)
[2016-04-15] MEDS ORDERED: IPRA3AMP IH (09:15)
[2016-04-15] MEDS ORDERED: POTA20TA8 PO (09:15)
[2016-04-15] MEDS ORDERED: FURO-124 PO (09:15)
--- NOTE | 2016-04-19 09:18 | Physician Query ---
PQ-Conflicting Diagnosis Admission/Discharge Admission Date: Mar 28, 2016 at 12:00 Discharge Date: Apr 14, 2016 at 13:30 The medical record reflects the following clinical scenario: History/Risk Factors: Acute respiratory failure, Pneumonia, Acute renal failure, Shock Clinical Findings: WBC 17.0-26.3, P 105-158, BP 96/62, R 20-44 Treatment: IV abx Question: Do you agree with the impression of Sepsis per Dr. Pan?. Please document a response below. 1. Yes ____ 2. No ____ 3. Other, with explanation of clinical findings 4. Clinically undetermined, no explanation for clinical findings Do you agree w/Consulting Dx?: No Explanation of clincal finding See critical doctors notes-- Please remember a lack of response to the above will prompt a phone page by [facility]/ coding staff. In responding to this query, please exercise your independent professional judgment. The purpose of this communication is to more accurately reflect the complexity of your patients condition. The fact that a question is asked does not imply that any particular answer is desired or expected. Thank you for your timely response to this clarification. Requestors name: Rere THIS PHYSICIAN QUERY FORM IS A PERMANENT PART OF THE MEDICAL RECORD RERE ARANDA Apr 19, 2016 09:18 AIME CANO DO Apr 26, 2016 22:03
[2016-04-29] MEDS ORDERED: SUCR1TAB PO (11:46)
[2016-04-29] MEDS ORDERED: OMEP40CA36 PO (11:46)
[2016-04-29] MEDS ORDERED: Finasteride PO (11:46)
[2016-04-29] MEDS ORDERED: BETH25TA PO (11:46)
[2016-04-29] MEDS ORDERED: ATOR20TA66 PO (11:46)
[2016-04-29] MEDS ORDERED: ENAL2.5T PO (11:46)
[2016-04-29] MEDS ORDERED: ALFU10TA11 PO (11:46)
--- NOTE | 2016-05-12 11:07 | DISCHARGE SUMMARY ---
DATE OF ADMISSION: 03/28/2016. DATE OF DISCHARGE: 04/14/2016 ATTENDING PRIMARY CARE PHYSICIAN: Dr. Mary Jane Sanchez ADMISSION DIAGNOSIS: Small bowel obstruction. DISCHARGE DIAGNOSIS: Small bowel obstruction. ADDITIONAL DIAGNOSES: 1. Hypomagnesemia. 2. Renal insufficiency. 3. Hypertension. 4. Peripheral vascular disease. 5. Coronary artery disease. 6. Degenerative joint disease. 7. Peptic ulcer disease. 8. Gastroesophageal reflux disease. 9. COPD. PRINCIPAL PROCEDURE: Laparoscopic lysis of adhesions and small bowel resection. ADDITIONAL PROCEDURE: Placement left subclavian central venous catheter. COMPLICATIONS: None. DISPOSITION: To swing bed status. Mr. Raymond Petersen is a 52-year-old male known to us. We have seen before for long-term IV access due to hypomagnesemia. We also have known several years ago bilateral groin hernias which were easily reducible, however large. He came in with abdominal distention, nausea and vomiting and dehydration. He had worsening renal azotemia, leukocytosis, abdominal pain and distention. A CT scan was performed, which did show signs and symptoms of small bowel obstruction. PAST MEDICAL HISTORY: 1. Hypertension. 2. Peripheral vascular disease. 3. Coronary artery disease. 4. Degenerative joint disease. 5. Hypomagnesemia. 6. Peptic ulcer disease. 7. GERD. 8. Renal failure. 9. COPD. PAST SURGERIES: 1. Bilateral carotid endarterectomy 2008. 2. Lumbar ORIF 1996. 3. C3-C5 ORIF 1996. 4. Bilateral ankle ORIF . 5. Exploratory laparotomy and oversew of bleeding peptic ulcer 2009. 6. Coronary artery bypass grafting 11/2014. ALLERGIES: MORPHINE MEDICATIONS: 1. Lisinopril. 2. Magnesium. 3. Atenolol. 4. Nexium. 5. Amitriptyline. 6. Aspirin. 7. Furosemide. 8. Fluticasone spray. SOCIAL HISTORY: Positive smoke 45 pack-years, previous heavy alcohol intake; however, states he only drinks a few times a week now. FAMILY HISTORY: Father prostate cancer. Mother and father diabetes. The patient underwent conservative management with IV fluids, as well as hyperalimentation and conservative management with the initial NG tube decompression. He did well and was able to pass flatus and have a small bowel movement. NG tube was removed and he was started on clear liquid diet; however, he did have recurrence of symptoms. He opted for continued medical management and another trial of conservative management was attempted and he again did well however, once the nasogastric tube was removed and he was started on a diet he did again developed abdominal distention and nausea and vomiting. A Gastrografin contrast study did show a proximal small bowel obstruction with no obstruction in the lower abdominal quadrant to indicate any obstruction secondary to the bilateral inguinal hernias. On 04/04/2016 he underwent a diagnostic laparoscopy, laparoscopic lysis of adhesions, as well as small bowel resection and anastomosis. He also underwent placement of a left subclavian central venous catheter. He did well after the surgery and was sent to the Intensive Care Unit. He did well on several different occasions; however, due to his severe COPD and respiratory issues this was the rate limiting factor. He was sent to the general surgical floor as well as to inpatient rehabilitation on separate occasions; however, due to his respiratory compromise and worsening shortness of breath he was sent back to the Intensive Care Unit. Throughout the hospital process, his primary care physician was consulted as well as cardiology, pulmonology. He eventually was able to do better and had stable vital signs as well as stable respiratory status with stable oxygen saturations with O2 nasal cannula. He continued to do well and from a gastrointestinal standpoint, he was able to tolerate a regular diet and have normal bowel function. His ambulatory status did improve over time; however he is still not strong enough to do all of his activities of daily living. At this time it was decided to transfer him to swing bed status for continued therapy, as well as optimizing his respiratory status. He was discharged on 04/14/2016. TRANSFER INSTRUCTIONS: Diet as tolerated. No activity restrictions; however, no heavy lifting or exertion. Resume all previous home medications. He may shower. We will continue to monitor him while admitted. Job ID: [id number] Dictated Date: 05/11/2016 16:01:39 Ship Rigger Date: 05/12/2016 10:44:54/moises
== END 2016-04-14 13:30 | DRG 329 ==
LOC: 4TH 12:00 → ICU 03-31 00:05 → 4TH 04-02 12:00 → ICU 04-04 20:30 → 4TH 04-07 23:36 → ICU 04-08 07:54
PROVIDERS: ADMIT Family Medicine; ATTEND Family Medicine
PROC: 0DNS4ZZ (ICD-10-PCS; 2016-04-04)
PROC: 5A1945Z Respiratory Ventilation, 24-96 Consecutive Hours (ICD-10-PCS; 2016-04-04)
PROC: 0DBA0ZZ Excision of Jejunum, Open Approach (ICD-10-PCS; principal; 2016-04-04 15:30)
PROC: 0DN84ZZ Release Small Intestine, Percutaneous Endoscopic Approach (ICD-10-PCS; 2016-04-04 15:30)
DX: K56.5 Intestinal adhesions [bands] with obstruction (postinfection) (principal); J96.00 Acute respiratory failure, unspecified whether with hypoxia or hypercapnia; J69.0 Pneumonitis due to inhalation of food and vomit; R57.9 Shock, unspecified; N17.9 Acute kidney failure, unspecified; G93.41 Metabolic encephalopathy; E46 Unspecified protein-calorie malnutrition; E87.0 Hyperosmolality and hypernatremia; I12.9 Hypertensive chronic kidney disease with stage 1 through stage 4 chronic kidney disease, or unspecified chronic kidney disease; N18.9 Chronic kidney disease, unspecified; I25.10 Atherosclerotic heart disease of native coronary artery without angina pectoris; J44.9 Chronic obstructive pulmonary disease, unspecified; E83.42 Hypomagnesemia; E86.0 Dehydration; K40.20 Bilateral inguinal hernia, without obstruction or gangrene, not specified as recurrent; K21.9 Gastro-esophageal reflux disease without esophagitis; I73.9 Peripheral vascular disease, unspecified; M19.91 Primary osteoarthritis, unspecified site; M54.9 Dorsalgia, unspecified; I48.0 Paroxysmal atrial fibrillation; I27.2 Other secondary pulmonary hypertension; E87.6 Hypokalemia; L89.011 Pressure ulcer of right elbow, stage 1; R33.9 Retention of urine, unspecified; Z87.11 Personal history of peptic ulcer disease; Z87.891 Personal history of nicotine dependence; Z95.1 Presence of aortocoronary bypass graft; Z99.81 Dependence on supplemental oxygen
CPT/HCPCS: 36415; 71010; 71020; 74000; 74020; 74176; 74250; 80048; 80053; 80162; 80202; 81000; 82150; 82330; 82805; 82962; 83605; 83690; 83735; 83880; 84100; 84132; 84134; 84478; 84484; 85007; 85014; 85018; 85025; 85027; 85610; 85652; 87040; 87070; 87077; 87081; 87088; 87186; 87205; 88307; 93005; 93306; 94002; 94003; 94010; 94640; 94660; 94664; 94760; 94799

== ENCOUNTER 2016-04-14 12:30 | Inpatient (IN) | payer MEDICARE, OTHER ==
[~2016-04-14] VITALS: Ht 188 cm; Wt 81.6 kg
[~2016-04-14 12:30] MED LIST changes: +ACET325T38 PO; +DIPH50VI2 IV; +ESOM20CA32 PO; +FURO-124 PO; +LEVO50TA6 PO; +MAGN1PIG IV
[2016-04-14 13:45] VITALS: BP 147/80
--- OUTSIDE RECORDS SUMMARY | 2016-04-14 13:46 | XMS REPORT | Continuity of Care Document ---
Author Author [facility] Organization [facility] Address Unknown Phone Unavailable Care Team Providers Care Blanket Weaver Name Role Phone Mary Jane Sanchez PCP [phone] Source Comments Some departments are not documenting in the electronic medical record. If you do not see the information that you expected, contact Release of Information in the Health Information Management department at [phone] for further assistance in locating additional records.[facility] Active Allergies and Adverse Reactions Not on [...]
[2016-04-14] MEDS ORDERED: CATHETER FLUSH 10 ML SYR IV PRN (14:15)
[2016-04-14] MEDS ORDERED: NON-FORMULARY MEDICATION 1 EA EA PO PRN (14:15)
[2016-04-14] MEDS ORDERED: RT-ALBUTEROL/IPRATROPIUM 3 ML (DUONEB) VIAL INH PRN (14:15)
[2016-04-14] MEDS ORDERED: ZINC OXIDE 20% OINT 30 GM TUBE TOP SCH (14:15)
[2016-04-14] MEDS ORDERED: FLUTICASONE NASAL SPRAY (FLONASE) 16 GM BTL NS PRN (14:15)
[2016-04-14] MEDS ORDERED: HYDROcodone/APAP 5 MG/325 MG (LORTAB) TAB PO PRN (14:15)
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
--- NOTE | 2016-04-14 15:08 | Physical Therapy Evaluation ---
PT Evaluation-General Medical Diagnosis Admission Date Apr 14, 2016 at 13:13 Medical Diagnosis: bowel resection Onset Date: Mar 28, 2016 Therapy Diagnosis Therapy Diagnosis: impaired mobility, strength, endurance Height/Weight Height (Feet): 6 Height (Inches): 2.00 Weight (Pounds): 177 Weight (Ounces): 3.0 Referral Physician: Zach Reason for Referral: Evaluation/Treatment Medical History Pertinent Medical History: CABG, CAD, COPD, Heart Failure, Renal Insufficiency , Smoking Additional Medical History SBO Current History s/p lap lysis of adhesions and small bowel resection Reviewed History: Yes Social History Home: Single Level Current Living Status: Spouse Entry Into Home: Stairs With Railing PT Steps Into Home: 2 works during the day so he will be alone Prior/Core FIM Prior Level of Function Functional [place] Measure 0=Not Assessed/NA 4=Minimal Assistance 1=Total Assistance 5=Supervision or Setup 2=Maximal Assistance 6=Modified [place] 3=Moderate Assistance 7=Complete [place] Bed Mobility: 6 Transfers (B,C,W/C) (FIM): 6 Gait: 6 patient used a single point cane pre morbid PT Evaluation-Current Subjective Patient in wheelchair, OT brought him down from ICU, will be co-treating with OT due to poor patient mobility and severely limited activity tolerance. Patient has pain in his back and abdomen but will not give a pain level. Patient will also need to get dressed, will assist OT with balance and mobility during that. Pt/Family Goals to be independent at home Objective Patient Orientation: Normal For Age Attachments: Oxygen ROM/Strength ROM Lower Extremities WNL Strenght Lower Extremities 4/5 gross bilateral lower extremities except for hip flexion 4-/5 and dorsiflexion 4-/5 Integumentary/Posture Integumentary patient has some abrasions on his back Bowel Incontinence: No Bladder Incontinence: No Neuromuscular (Tone, Coordination, Reflexes) WNL Sensory Vision: Functional Hearing: Functional Sensation Right Lower Extremit: Intact Sensation Left Lower Extremity: Intact Transfers Functional [place] Measure 0=Not Assessed/NA 4=Minimal Assistance 1=Total Assistance 5=Supervision or Setup 2=Maximal Assistance 6=Modified [place] 3=Moderate Assistance 7=Complete IndependenceIRFPAI Quality Coding Scale 6 Independent with activity with or without an assistive device 5 Patient requires set up or clean up by helper. Patient completes activity by themselves 4 Supervision or touching assist (CGA). [place] provide cues , steadying assist 3 The helper provides less than half the effort to complete the activity 2 The helper provides more than half the effort to complete the activity 1 Dependent. The helper does all the effort to complete an activity 7 Patient refused to complete or attempt activity 9 The patient did not perform the activity before the current illness or injury 88 Not attempted due to Medical conditions or safety concerns Transfers (B, C, W/C) (FIM): 4 Scootin Rollin Roll Left to Right (QC): 4 Supine to/from Sit: 5 Sit to/from Stand: 4 bed t/f WC(FIM only if WC use): 4 Sit to Lying (QC): 4 Lying to Sitting/Side of Bed(Q: 4 Sit to Stand (QC): 4 Chair/Mem-nj-Uowdl Xfer(QC): 4 Car Transfer (QC): 88 Patient performs bed mobility including supine to sit with SBA and is CGA for transfers Gait Mode of Locomotion: Walk Anticipated Mode of Locomotion: Walk Gait (FIM): 2 Walk 10 feet (QC): 4 Walk 50 ft with 2 Turns(QC): 4 Walk 150 ft (QC): 88 Walking 10ft/uneven surface-QC: 4 Distance: 60' Gait Level of Assist: 4 Gait Persons Needed: 1 Gait Assistive Device: FWW Comments/Gait Description Patient ambulates 60' with a rolling walker with CGA including 10' over an uneven surface like carpet and 50' with at least 2 turns of 90 degrees, patient gets SOB very quickly and needs to sit and catch his breath Stairs If not tested on admit;explain not tested, patient is very weak and his breathing and activity tolerance is so poor that i feel it would not be safe to go up and down any stairs at this time Balance Sitting Static: Normal Sitting Dynamic: Normal Standing Static: Fair Standing Dynamic: Fair Treatment standing ex in parallel bars x 10 (heel raises, mini-squats) Assessment/Needs Patient has impaired mobility, strength, and very poor endurance. Patient gets SOB very easily and can only handle a little bit of activity at a time. He requires an extended amount of time to recover, which he needs to do between every activity. Rehab Potential: Fair PT Short Term Goals Short Term Goals Time Frame: Apr 21, 2016 Transfers (B,C,W/C) (FIM): 5 Gait (FIM): 5 Gait Distance Comment: 150' Gait Level of Assist: 5 Gait Assistive Device: FWW PT Fci Goals Fci Goals PT Forging Press Lever Tender Goals Time Frame: May 06, 2016 Transfers (B,C,W/C) (FIM): 6 Sit to Lying (QC): 6 Lying-Sitting on Side/Bed(QC): 6 Sit to Stand (QC): 6 Rollin Roll Left to Right (QC): 6 Chair/Ukp-oz-Vcrmn Xfer(QC): 6 Car Transfer (QC): 4 Does the Patient Walk: Yes Gait (FIM): 6 Distance: 200' Walk 10 feet (QC): 6 Walk 10ft-Uneven Surface(QC): 6 Walk 50ft with 2 Turns (QC): 6 Walk 150 ft (QC): 6 Gait Level of Assist: 6 Gait Assistive Device: FWW Stairs (FIM): 5 # of Steps: 4 1 Step (curb) (QC): 4 4 Steps (QC): 4 12 Steps (QC): 88 Stairs Level Of Assist: 4 Picking up an Object (QC): 88 PT Plan Problem List Problem List: Activity Tolerance, Functional Strength, Safety, Balance, Gait, Transfer, Bed Mobility Treatment/Plan Treatment Plan: Continue Plan of Care Treatment Plan: Bed Mobility, Education, Functional Activity Kris, Functional Strength, Group Therapy, Gait, Safety, Therapeutic Exercise, Transfers Treatment Duration: May 06, 2016 # of days/week 5-6 Visits Per Week: 10-11 Minutes/Day (M-F): 60-90 Minutes/Day (Sat/[place]): 15-30 Pt/Family Agrees w/Plan: Yes Safety Risks/Education Patient Education: Gait Training, Transfer Techniques, Correct Positioning, Disease Process, Safety Issues Teaching Recipient: Patient Teaching Methods: Demonstration, Discussion Response to Teaching: Reinforcement Needed Discharge Recommendations Plan Patient will perform bed mobility and transfer training, balance and endurance training, functional strengthening, stair training, gait training, education, to improve functional mobility and independence at home. Time/GCodes Time In: 1330 Time Out: 1500 Total Billed Treatment Time: 90 Total Billed Treatment 1 visit EVM 15min GT 15 min EX 15 min FA 45 min co-treated with OT for 60 min, assisted OT during dressing with balance and stability and OT assisted PT during ambulation with safety and education and balance CLAUDIA ONTIVEROS PT Apr 14, 2016 15:08
--- NOTE | 2016-04-14 15:39 | Progress Note (SOAP) ---
Subjective Subjective/Events-last exam doing well. did well with IRU activities today. still has exertional SOB. tolerating diet and having multiple loose stools but getting better. Objective Exam Vital Signs Date Time Temp Pulse Resp B/P Pulse Ox O2 Delivery O2 Flow Rate FiO2 04/14/16 13:45 98.1 110 20 147/80 98 04/14/16 13:00 107 Capillary Refill : General Appearance: No Apparent Distress HEENT: PERRL/EOMI Neck: Full Range of Motion Respiratory: Decreased Breath Sounds Rhonci Cardiovascular: Regular Rate, Rhythm Gastrointestinal: normal bowel sounds non tender soft Extremity: Normal Capillary Refill Neurologic/Psychiatric: Alert Oriented x3 Skin: Normal Color Lymphatic: No Adenopathy Assessment/Plan Assessment/Plan Assess & Plan/Chief Complaint SBO s/p laparoscopic SARAH and small bowel resection. underlying cardiopulmonary disease and renal failure. cont. abx for pneumonia. diet as tolerated. continue PT/OT Diagnosis/Problems: BRITTANY CHAPA MD Apr 14, 2016 3:38 pm
[2016-04-14] MEDS ORDERED: PANTOPRAZOLE 20 MG TABLET (PROTONIX) PO PRN (15:45)
[2016-04-14] MEDS ORDERED: BETHANECHOL 25 MG (URECHOLINE) TAB PO SCH (16:00)
--- NOTE | 2016-04-14 16:01 | ST Cognitive Linguistic Eval ---
Speech Evaluation-General Medical Diagnosis Bowel Resection Onset Date: Mar 28, 2016 Therapy Diagnosis Therapy Diagnosis: Questionable Cognitive Impairment Precautions Precautions/Isolations: Standard Precautions Referral Referring Physician: Dr. Gerald Serrano Reason for Referral: Evaluation/Treatment Cognitive Screen Medical History Pertinent Medical History: Atrial Fib, CABG, CAD, COPD, Heart Failure, HTN, Renal Insufficiency, Smoking Reviewed History: Yes Social History Current Living Status: Spouse Speech PLF-Current Status Prior Level of Function The patient reported intermittent, mild issues with his memory at baseline (prior to his surgery) stating "I have always had a little trouble but nothing big." The patient denied additional speech, language, or cognitive issues. Subjective The patient was recently admitted to [facility] following a bowel resection. The patient greeted the clinician appropriately and agreed to participate in the cognitive screen. Language Eval: Auditory Comprehends Simple Yes/No Ques: Functional Indent/Objects Multiple Kuo: Functional Ident/Pics in Multiple Kuo: Functional Follows 1-Step Commands: Functional Follows Complex Directions: Mild (Repetition required for increased accuracy.) Follows General Conversations: Functional (The patient did require intermittent redirection to topic.) Language Eval: Verbal Language Completes Spontaneous Greeting: Functional Produces Auto, Serial Info: Functional Imitates Simple Words/Phrases: Functional Word Finding: Mild Requests Basic Needs: Functional States Basic Personal Info: Functional Expresses Complex Ideas: Mild Cognitive Patient Orientation The patient was oriented to self, location, day of week, month, year, and rationale behind hospitalization. Objective Cognitive Domain Attention: Mild (Redirection to task was required intermittently throughout the session.) Memory: Mild (Per patient, he is performing at baseline.) Problem Solving: Functional Objective Impression The patient demonstrated cognitive linguistic skills grossly within normal limits for age. The patient reported mild memory deficits at baseline. Communication/Social Cognition Comprehension: 5 Expression: 5 Social Interaction: 5 Problem Solvin Memory: 5 Speech Patient Assess Expression of Ideas/Wants: Exhibits (3) Understanding [place] Content: Usually Understands (3) Brief Interview-Mental Status: Yes Repetition of Three Words: Three (3) Temporal Orientation: Year: Correct (3) Temporal Orientation: Month: Accurate within 5 days(2) Temporal Orientation: Day: Correct (1) Recall : Wear to say "Sock": No, could not recall (0) Recall : Color: Yes, after cueing (1) Recall : Bed: No, could not recall (0) Speech-Plan Treatment Plan Speech Therapy Treatment Plan: Discontinue ST Evaluation, only. Rehab Potential: Guarded Safety Risks/Education Teaching Recipient: Patient Teaching Methods: Discussion Response to Teaching: Verbalize Understanding Education Topics Provided: Plan of Care Time Speech Therapy Time In: 15:28 Speech Therapy Time Out: 15:43 Total Billed Time: 15 Billed Treatment Time 1, BRETT MICHAEL Apr 14, 2016 16:01
[2016-04-14] MEDS ORDERED: AUGMENTIN 875 MG TAB (AMOXICILLIN/CLAVULANATE) PO SCH (17:00)
[2016-04-14] MEDS ORDERED: NYSTATIN ORAL SUSP 5 ML UDC PO SCH (18:00)
[2016-04-14 18:09] VITALS: BP 106/62
[2016-04-14] MEDS: RT-ALBUTEROL/IPRATROPIUM 3 ML (DUONEB) VIAL INH SCH ×2 (18:59→22:29)
[2016-04-14 19:23] VITALS: BP 110/74
[2016-04-14 19:42] LABS: ABG BASE EXCESS 4.3 MMOL/L (-2.5-2.5); ABG HCO3 31 MMOL/L (23-27); ABG OXYGEN SATURATION 90 % (94-100); ABG PO2 60 MMHG (79-93); ABG TCO2 33.6 MMOL/L (21.0-31.0)
[2016-04-14 19:44] LABS: ABG PCO2 75 MMHG (35-45); ABG PH 7.24 (7.37-7.43)
[2016-04-14 19:45] LABS: PATIENT TEMP 97.9
--- NOTE | 2016-04-14 19:50 | Diagnostic Imaging Report ---
INDICATION: Decreased level of consciousness. EXAMINATION: Single view of the chest was obtained. COMPARISON: 04/14/2016. FINDINGS: Obstructive interstitial lung disease is again noted. No consolidated infiltrates are present. Chronic blunting of the left hemidiaphragm is noted. There is some chronic scarring noted in the right major fissure. The heart remains enlarged with median sternotomy changes. There is no evidence of pulmonary edema. No hilar adenopathy. No consolidated infiltrates. No pneumothorax or pleural effusion. IMPRESSION: Postoperative residue with chronic changes, as described. Dictated by: Dictated on workstation # [id number]
[2016-04-14 20:40] LABS: MEAN PLATELET VOLUME 11.1 FL (7.4-10.4); RED BLOOD COUNT 2.78 10^6/uL (4.35-5.85); WHITE BLOOD COUNT 17.5 10^3/uL (4.3-11.0)
[2016-04-14] MEDS ORDERED: RT-BUDESONIDE NEBS 0.5 MG/2ML (PULMICORT) AMP INH SCH (21:00)
[2016-04-14] MEDS ORDERED: ENOXAPARIN 40 MG/0.4 ML (LOVENOX) SYR SC SCH (21:00)
[2016-04-14] MEDS ORDERED: meTOproloL SUCCINATE 50 MG (TOPROL XL) TAB PO SCH (21:00)
[2016-04-14 21:01] LABS: ALANINE AMINOTRANSFERASE 22 U/L (0-55); ALBUMIN 2.9 G/DL (3.2-4.5); ANION GAP 14 MMOL/L (5-14); ASPARTATE AMINO TRANSFERASE 25 U/L (5-34); BILIRUBIN,TOTAL 0.3 MG/DL (0.1-1.0); BLOOD UREA NITROGEN 26 MG/DL (7-18); BUN/CREATININE RATIO 12; CALCIUM 8.5 MG/DL (8.5-10.1); CARBON DIOXIDE 26 MMOL/L (21-32); CHLORIDE 100 MMOL/L (98-107); CREATININE SERUM 2.11 MG/DL (0.60-1.30); GFR ESTIMATED 32; GLUCOSE 113 MG/DL (70-105); MAGNESIUM 1.9 MG/DL (1.8-2.4); POTASSIUM 4.5 MMOL/L (3.6-5.0); SODIUM 140 MMOL/L (135-145); TOTAL PROTEIN 6.2 G/DL (6.4-8.2)
[2016-04-14] MEDS ORDERED: [UNRECOGNIZED DRUG - OTHER] IV SCH (22:26)
[2016-04-14] MEDS ORDERED: DEXMEDETOMIDINE 400 MCG/100 ML IV SCH (22:26)
[2016-04-15] MEDS ORDERED: LEVOTHYROXINE 50 MCG (LEVOTHROID) TAB PO ONE (06:30)
[2016-04-15] MEDS ORDERED: LEVOTHYROXINE 50 MCG (LEVOTHROID) TAB PO SCH (06:30)
[2016-04-15] MEDS ORDERED: MULTIVIT W/MINERALS TAB (THERAGRAN M) PO SCH (07:00)
[2016-04-15] MEDS ORDERED: THIAMINE 100 MG (VITAMIN B-1) TAB PO SCH (07:00)
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
[2016-04-15] MEDS ORDERED: SPIRONOLACTONE 25 MG (ALDACTONE) TAB PO SCH (09:00)
[2016-04-15] MEDS ORDERED: ASPIRIN E.C. 81 MG (ECOTRIN) TAB PO SCH (09:00)
[2016-04-15] MEDS ORDERED: NICOTINE 21 MG (NICODERM) PATCH TD SCH (09:00)
[2016-04-15] MEDS ORDERED: KCL 10 MEQ TAB (MICRO K) PO SCH (09:00)
[2016-04-15] MEDS ORDERED: FUROSEMIDE 40 MG (LASIX) TAB PO SCH (09:00)
[2016-04-15] MEDS ORDERED: FLUT9.9S NS (09:15)
[2016-04-15] MEDS ORDERED: DIPH50VI2 IV (09:15)
[2016-04-15] MEDS ORDERED: POTA20TA8 PO (09:15)
[2016-04-15] MEDS ORDERED: ASP81TEC PO (09:15)
[2016-04-15] MEDS ORDERED: MAGN1PIG IV (09:15)
[2016-04-15] MEDS ORDERED: IPRA3AMP IH (09:15)
[2016-04-15] MEDS ORDERED: FURO-124 PO (09:15)
[2016-04-15] MEDS ORDERED: LEVO50TA6 PO (09:15)
[2016-04-15] MEDS ORDERED: MULT-974 PO (09:15)
[2016-04-15] MEDS ORDERED: METO100T2 PO (09:15)
[2016-04-15] MEDS ORDERED: ACET325T38 PO (09:15)
[2016-04-15] MEDS ORDERED: VITA1TAB PO (09:15)
[2016-04-15] MEDS ORDERED: ESOM20CA32 PO (09:15)
[2016-04-15] MEDS ORDERED: HYDR-3812 PO (09:15)
[2016-04-15] MEDS ORDERED: SPIR25TA3 PO (09:15)
[2016-04-16] MEDS ORDERED: PATCH REMOVAL TP SCH (09:00)
--- NOTE | 2016-04-18 08:33 | Therapy Team Discharge Summary ---
Therapy Discharge Summary Discharge Recommendations Date of Discharge Apr 14, 2016 at 20:10 Occupational Therapy Pt was seen for skilled OT to increase his independence in basic self care to allow him to safely return home after surgery and pneumonia. Pt has COPD and uses O2. Pt was admitted on 04-14 and OT eval/tx reported setup with eating and upper body dressing, min assist with lower body dressing and transfers. Pt required significant recovery periods between steps of ADLs such as between donning socks. He was discharged to ICU later in the day and did not return to the ARU. No goals were met due to short stay. DC OT. PT Long-Term Goals Long-Term Goals PT Accountant Cost Goals Time Frame: May 06, 2016 Transfers (B,C,W/C) (FIM): 6 Roll Left to Right (QC): 6 Sit to Lying (QC): 6 Lying-Sitting on Side/Bed(QC): 6 Sit to Stand (QC): 6 Chair/Gol-tm-Kyhnn Xfer(QC): 6 Car Transfer (QC): 4 Does the Patient Walk: Yes Gait (FIM): 6 Distance: 200' Walk 10 feet (QC): 6 Walk 10ft-Uneven Surface(QC): 6 Walk 50ft with 2 Turns (QC): 6 Walk 150 ft (QC): 6 Gait Level of Assist: 6 Gait Assistive Device: FWW Stairs (FIM): 5 # of Steps: 4 1 Step (curb) (QC): 4 4 Steps (QC): 4 12 Steps (QC): 88 Stairs Level Of Assist: 4 Picking up an Object (QC): 88 OT Accountant Cost Goals Long-Term Goals Time Frame: May 06, 2016 Eating (FIM): 6 Eating (QC): 6 Oral Hygiene (QC): 6 Grooming(FIM): 6 Bathing(FIM): 6 Shower/Bathe Self (QC): 6 Upper Body Dressing(FIM): 6 Upper Body Dressing (QC): 6 Lower Body Dressing(FIM): 6 Lower Body Dressing (QC): 6 On/Off Footwear (QC): 6 Toileting(FIM): 6 Toileting Hygiene (QC): 6 Toilet/Commode Transfer(FIM): 6 Toilet/Commode Transfer (QC): 6 Shower Transfer(FIM): 6 Additional Goals: 2-Verbalize Understanding, 3-ImproveStrength/Kris 1=Demonstrate adherence to instructed precautions during ADL tasks. 2=Patient will verbalize/demonstrate understanding of assistive devices/ modifications for ADL. 3=Patient will improve strength/tolerance for activity to enable patient to perform ADL's. NASEEM CHURCHILL OT Apr 18, 2016 08:33
[2016-04-18] MEDS ORDERED: diphenhydrAMINE 50 MG/ML INJ (BENADRYL) IVP SCH (09:00)
[2016-04-18] MEDS ORDERED: ACETAMINOPHEN 325 MG TABLET/CAPLET (TYLENOL) PO SCH (09:00)
[2016-04-18] MEDS ORDERED: MAGNESIUM 1 GM/100 ML IVPB 200 ML IV SCH (09:00)
[2016-04-29] MEDS ORDERED: Finasteride PO (11:46)
[2016-04-29] MEDS ORDERED: OMEP40CA36 PO (11:46)
[2016-04-29] MEDS ORDERED: BETH25TA PO (11:46)
[2016-04-29] MEDS ORDERED: ENAL2.5T PO (11:46)
[2016-04-29] MEDS ORDERED: SUCR1TAB PO (11:46)
[2016-04-29] MEDS ORDERED: ATOR20TA66 PO (11:46)
[2016-04-29] MEDS ORDERED: ALFU10TA11 PO (11:46)
== END 2016-04-14 20:10 | disposition short-term general hospital (02) | DRG 91 ==
PROVIDERS: ADMIT Physical Medicine & Rehabilitation; ATTEND Physical Medicine & Rehabilitation
DX: G72.81 Critical illness myopathy (principal); Z48.815 Encounter for surgical aftercare following surgery on the digestive system; J18.9 Pneumonia, unspecified organism; E87.1 Hypo-osmolality and hyponatremia; K40.20 Bilateral inguinal hernia, without obstruction or gangrene, not specified as recurrent; I25.10 Atherosclerotic heart disease of native coronary artery without angina pectoris; J44.9 Chronic obstructive pulmonary disease, unspecified; I48.91 Unspecified atrial fibrillation; I10 Essential (primary) hypertension; E83.42 Hypomagnesemia; M54.9 Dorsalgia, unspecified; K21.9 Gastro-esophageal reflux disease without esophagitis; Z99.81 Dependence on supplemental oxygen; Z95.1 Presence of aortocoronary bypass graft
CPT/HCPCS: 36415; 71010; 80053; 82805; 83735; 84484; 85027; 93005; 94640; 94760

== ENCOUNTER 2016-04-14 20:48 | Inpatient (IN) | payer MEDICARE, OTHER ==
[2016-04-14] VITALS (16 sets, daily range): BP systolic 60–139; BP diastolic 40–96
[~2016-04-14] VITALS: Ht 188 cm; Wt 80.1 kg
--- OUTSIDE RECORDS SUMMARY | 2016-04-14 20:53 | XMS REPORT | Continuity of Care Document ---
Author Author [facility] Organization [facility] Address Unknown Phone Unavailable Care Team Providers Care Compensation Administrator Name Role Phone Mary Jane Sanchez PCP [phone] Source Comments Some departments are not documenting in the electronic medical record. If you do not see the information that you expected, contact Release of Information in the Health Information Management department at [phone] for further assistance in locating additional records.[facility] Active Allergies and Adverse Reactions Not [...]
[2016-04-14] MEDS ORDERED: CATHETER FLUSH 10 ML SYR IV PRN (22:15)
[2016-04-14] MEDS ORDERED: fentaNYL INJECTION 100 MCG/2 ML AMP IVP PRN (22:15)
[2016-04-14] MEDS ORDERED: ZINC OXIDE 20% OINT 30 GM TUBE TOP SCH (22:15)
[2016-04-14] MEDS ORDERED: CHLORASEPTIC SPRAY 177 ML LIQUID MC PRN (22:15)
[2016-04-14] MEDS ORDERED: LORazepam INJ 2 MG/ML (ATIVAN) VIAL IVP PRN (22:15)
[2016-04-14] MEDS ORDERED: ONDANSETRON 4 MG/2 ML (SDV) Z0FRAN IVP PRN (22:15)
[2016-04-14] MEDS ORDERED: RT-ALBUTEROL/IPRATROPIUM 3 ML (DUONEB) VIAL ONE (22:26)
[2016-04-14] MEDS ORDERED: DEXMEDETOMIDINE PRE-MIX 100 ML IV ONE (22:37)
[2016-04-14] MEDS ORDERED: LIDOCAINE UROJET 2% GEL 10 ML PKG ONE (22:44)
[2016-04-14] MEDS ORDERED: DEXMEDETOMIDINE 400 MCG/100 ML IV SCH (23:16)
[2016-04-14] MEDS ORDERED: [UNRECOGNIZED DRUG - OTHER] IV SCH (23:16)
[2016-04-15] VITALS (42 sets, daily range): BP systolic 63–142; BP diastolic 39–89
[2016-04-15] MEDS ORDERED: NS IV 1000 ML 1,000 ML ONE (00:03)
[2016-04-15] MEDS ORDERED: NS IV 1000 ML 1,000 ML IV SCH (01:15)
[2016-04-15] MEDS: RT-ALBUTEROL/IPRATROPIUM 3 ML (DUONEB) VIAL INH SCH ×6 (02:14→21:57)
[2016-04-15 04:26] LABS: BASOPHILS % (AUTO) 0 % (0-10); EOSINOPHILS # (AUTO) 0.1 10^3/uL (0.0-0.3); EOSINOPHILS % (AUTO) 1 % (0-10); LYMPHOCYTES # (AUTO) 1.1 X 10^3 (1.0-4.0); LYMPHOCYTES % (AUTO) 8 % (12-44); MEAN CORPUSCULAR HEMOGLOBIN 33 PG (25-34); MEAN CORPUSCULAR HGB CONC 30 G/DL (32-36); MEAN CORPUSCULAR VOLUME 109 FL (80-99); MONOCYTES # (AUTO) 1.1 X 10^3 (0.0-1.0); MONOCYTES % (AUTO) 8 % (0-12); NEUTROPHILS # (AUTO) 11.3 X 10^3 (1.8-7.8); NEUTROPHILS % (AUTO) 83 % (42-75); PLATELET COUNT 347 10^3/uL (130-400); RED BLOOD COUNT 2.55 10^6/uL (4.35-5.85); RED CELL DISTRIBUTION WIDTH 12.2 % (10.0-14.5); WHITE BLOOD COUNT 13.6 10^3/uL (4.3-11.0)
[2016-04-15 04:42] LABS: ALBUMIN 2.4 G/DL (3.2-4.5); CALCIUM 8.1 MG/DL (8.5-10.1); CREATININE SERUM 1.78 MG/DL (0.60-1.30); MAGNESIUM 1.6 MG/DL (1.8-2.4); POTASSIUM 4.3 MMOL/L (3.6-5.0)
[2016-04-15] MEDS: MAGNESIUM 1 GM/100 ML IVPB 100 ML IV SCH ×5 (05:57→07:57)
[2016-04-15] MEDS: KCL 20 MEQ TAB (K-DUR) PO SCH (05:57)
[2016-04-15] MEDS: POTASSIUM CL 10MEQ/50ML IVPB 50 ML IV SCH (05:57)
--- NOTE | 2016-04-15 06:09 | Pulmonary Progress Note ---
Subjective Subjective/Events-last exam PT was in inpatient rehab last night and went into respiratory distress. ABG shows acute respiratory acidosis. Pt was transferred back to ICU and is now doing much better. He required BiPAP for a limited time and high flow oxygen. He was on a simple mask when I entered room and I changed him to a NC just now. Exam Exam Vital Signs Date Time Temp Pulse Resp B/P Pulse Ox O2 Delivery O2 Flow Rate FiO2 04/15/16 05:30 106 21 140/65 100 OxyMask 8.00 04/15/16 05:15 103 24 128/64 100 OxyMask 8.00 04/15/16 05:00 102 20 127/64 100 OxyMask 8.00 04/15/16 04:45 104 24 117/60 100 OxyMask 8.00 04/15/16 04:30 101 25 117/61 100 OxyMask 8.00 04/15/16 04:15 102 28 122/70 100 OxyMask 8.00 04/15/16 04:00 97.3 101 21 91/53 100 OxyMask 8.00 04/15/16 04:00 95 8.00 04/15/16 03:45 97 21 116/54 100 OxyMask 8.00 04/15/16 03:30 98 21 73/43 100 OxyMask 8.00 04/15/16 03:15 98 18 107/59 100 OxyMask 8.00 04/15/16 03:00 99 23 87/48 100 OxyMask 8.00 04/15/16 02:45 98 12 104/54 99 OxyMask 8.00 04/15/16 02:30 100 24 98/49 100 OxyMask 8.00 04/15/16 02:15 101 20 111/62 91 OxyMask 8.00 04/15/16 02:14 100 10.00 04/15/16 02:00 98 23 101/52 100 OxyMask 10.00 04/15/16 01:45 94 20 95/52 100 OxyMask 10.00 04/15/16 01:30 96 21 87/45 95 OxyMask 10.00 04/15/16 01:15 98 22 113/57 100 OxyMask 10.00 04/15/16 01:00 98 20 114/59 100 OxyMask 10.00 04/15/16 01:00 98 04/15/16 00:45 100 24 130/58 90 OxyMask 10.00 04/15/16 00:30 93 20 114/66 100 NIV Bilevel 60.00 04/15/16 00:15 93 11 117/61 97 NIV Bilevel 60.00 04/15/16 00:00 98 60 04/15/16 00:00 98.0 93 19 63/39 NIV Bilevel 60.00 04/14/16 23:50 93 20 100 60.00 04/14/16 23:45 94 21 68/41 100 NIV Bilevel 04/14/16 23:30 98 22 60/40 100 OxyMask 10.00 04/14/16 23:17 102 04/14/16 23:15 104 26 81/41 100 OxyMask 10.00 04/14/16 23:00 112 27 131/73 100 OxyMask 10.00 04/14/16 22:45 111 26 138/78 100 OxyMask 10.00 04/14/16 22:30 110 23 138/78 100 OxyMask 10.00 04/14/16 22:15 112 25 135/66 100 Non Rebreather 15.00 04/14/16 22:00 112 24 124/73 100 Non Rebreather 15.00 04/14/16 21:45 111 26 126/70 100 Non Rebreather 15.00 04/14/16 21:30 113 21 139/76 100 Non Rebreather 15.00 04/14/16 21:15 113 27 132/70 100 Non Rebreather 15.00 04/14/16 21:00 115 27 130/69 100 Non Rebreather 15.00 04/14/16 20:45 116 27 112/66 100 Non Rebreather 15.00 04/14/16 20:30 118 26 113/70 99 Non Rebreather 15.00 04/14/16 20:22 121 04/14/16 20:15 95 15.00 04/14/16 20:15 117 35 127/77 Non Rebreather 15.00 I & O 04/15/16 07:00 Intake Total 1220 ml Output Total 250 ml Balance 970 ml General Appearance: No Apparent Distress WD/WN HEENT: PERRL/EOMI Respiratory: Chest Non Tender Lungs Clear Normal Breath Sounds No Accessory Muscle Use No Respiratory Distress Cardiovascular: Regular Rate, Rhythm No Edema Gastrointestinal: normal bowel sounds non tender soft Neurologic/Psychiatric: Alert Oriented x3 Skin: Normal Color Warm/Dry Results Lab Laboratory Tests 04/15/16 04:15 Assessment/Plan Assessment/Plan Acute respiratory failure with aspiration - infection is improving -zosyn -SVN's Q4 -repeat ABG metabolic encephalopathy - improved -monitor NSTEMI -cardiology is following and is aware of troponin Small bowel obstruction s/p ex lap Inguinal hernia bilateral Acute renal failure/dehydration -IVF Clinical Quality Measures DVT/VTE Risk/Contraindication: Risk Factor Score Per Nursin RFS Level Per Nursing on Admit: 4+=Very High GRETCHEN OLSEN DO Apr 15, 2016 06:09
[2016-04-15] MEDS: BETHANECHOL 25 MG (URECHOLINE) TAB PO SCH ×4 (06:17→20:23)
[2016-04-15] MEDS: AUGMENTIN 875 MG TAB (AMOXICILLIN/CLAVULANATE) PO SCH ×2 (06:17→16:52)
[2016-04-15] MEDS: NYSTATIN ORAL SUSP 5 ML UDC PO SCH ×5 (06:17→22:00)
[2016-04-15] MEDS: RT-BUDESONIDE NEBS 0.5 MG/2ML (PULMICORT) AMP INH SCH ×2 (06:28→18:45)
[2016-04-15 06:32] LABS: ABG BASE EXCESS 3.2 MMOL/L (-2.5-2.5); ABG HCO3 30 MMOL/L (23-27); ABG OXYGEN SATURATION 92 % (94-100); ABG PCO2 66 MMHG (35-45); ABG PO2 60 MMHG (79-93); ABG TCO2 31.6 MMOL/L (21.0-31.0)
[2016-04-15 06:33] LABS: ABG PH 7.27 (7.37-7.43); ALLENS TEST YES-POS
[2016-04-15] MEDS: PANTOPRAZOLE 40 MG/10 ML (PROTONIX) VIAL IV SCH ×2 (08:05→20:23)
[2016-04-15] MEDS: BISACODYL 10 MG SUPP (DULCOLAX) PR SCH ×2 (08:06→20:23)
[2016-04-15] MEDS: HYDROcodone/APAP 7.5 MG/325 MG (LORTAB, LORCET PLUS) TABLET PO PRN (08:06)
[2016-04-15] MEDS: NICOTINE 21 MG (NICODERM) PATCH TD SCH (08:07)
[2016-04-15] MEDS ORDERED: meTOproloL SUCCINATE 50 MG (TOPROL XL) TAB PO SCH (09:00)
[2016-04-15] MEDS ORDERED: FLUT9.9S NS (09:15)
[2016-04-15] MEDS ORDERED: ACET325T38 PO (09:15)
[2016-04-15] MEDS ORDERED: POTA20TA8 PO (09:15)
[2016-04-15] MEDS ORDERED: ESOM20CA32 PO ×2 (09:15)
[2016-04-15] MEDS ORDERED: LEVO50TA6 PO (09:15)
[2016-04-15] MEDS ORDERED: MULT-974 PO (09:15)
[2016-04-15] MEDS ORDERED: FURO-124 PO (09:15)
[2016-04-15] MEDS ORDERED: VITA1TAB PO (09:15)
[2016-04-15] MEDS ORDERED: ASP81TEC PO (09:15)
[2016-04-15] MEDS ORDERED: SPIR25TA3 PO (09:15)
[2016-04-15] MEDS ORDERED: HYDR-3812 PO (09:15)
[2016-04-15] MEDS ORDERED: IPRA3AMP IH (09:15)
[2016-04-15] MEDS ORDERED: DIPH50VI2 IV (09:15)
[2016-04-15] MEDS ORDERED: MAGN1PIG IV (09:15)
[2016-04-15] MEDS ORDERED: METO100T2 PO (09:15)
[2016-04-15] MEDS ORDERED: RT-ALBUTEROL/IPRATROPIUM 3 ML (DUONEB) VIAL INH PRN (10:03)
--- NOTE | 2016-04-15 10:18 | Diagnostic Imaging Report ---
INDICATION: Dyspnea. EXAM: Frontal chest obtained at 4:53 hours and compared with yesterday. FINDINGS: There is poststernotomy change. The heart is normal in size. There are chronic-appearing increased interstitial markings. There is no acute infiltrate, pneumothorax or pleural fluid. Left-sided PICC line is unchanged. There is no pneumothorax. IMPRESSION: Borderline heart size with post sternotomy change. Chronic-appearing increased interstitial markings. No acute consolidation or pleural fluid. Stable appearance compared to yesterday. Dictated by: Dictated on workstation # [id number]
--- NOTE | 2016-04-15 10:19 | Physical Therapy Progress Note ---
Therapy Progress Note Attempted physical therapy evaluation on patient but he is having a hard time breathing this morning. Upon entering the room a respiratory therapist was putting him back on a bipap, I believe he had just gotten through with a breathing treatment. Patient refused treatment, he states that he just cant do it right now. Will try back in the afternoon. CLAUDIA ONTIVEROS PT Apr 15, 2016 10:19
--- NOTE | 2016-04-15 10:36 | Progress Note (SOAP) ---
Subjective Subjective/Events-last exam doing better. still has SOB. acidotic on ABG. tolerating diet. Objective Exam Vital Signs Date Time Temp Pulse Resp B/P Pulse Ox O2 Delivery O2 Flow Rate FiO2 04/15/16 10:08 99 6.00 04/15/16 07:58 99.3 04/15/16 07:00 107 04/15/16 06:30 105 15 86/72 93 Nasal Cannula 6.00 04/15/16 06:29 96 6.00 04/15/16 06:15 104 25 116/55 97 Nasal Cannula 6.00 04/15/16 06:00 102 26 111/55 100 OxyMask 8.00 04/15/16 05:45 104 22 142/70 100 OxyMask 8.00 04/15/16 05:30 106 21 140/65 100 OxyMask 8.00 04/15/16 05:15 103 24 128/64 100 OxyMask 8.00 04/15/16 05:00 102 20 127/64 100 OxyMask 8.00 04/15/16 04:45 104 24 117/60 100 OxyMask 8.00 04/15/16 04:30 101 25 117/61 100 OxyMask 8.00 04/15/16 04:15 102 28 122/70 100 OxyMask 8.00 04/15/16 04:00 97.3 101 21 91/53 100 OxyMask 8.00 04/15/16 04:00 95 8.00 04/15/16 03:45 97 21 116/54 100 OxyMask 8.00 04/15/16 03:30 98 21 73/43 100 OxyMask 8.00 04/15/16 03:15 98 18 107/59 100 OxyMask 8.00 04/15/16 03:00 99 23 87/48 100 OxyMask 8.00 04/15/16 02:45 98 12 104/54 99 OxyMask 8.00 04/15/16 02:30 100 24 98/49 100 OxyMask 8.00 04/15/16 02:15 101 20 111/62 91 OxyMask 8.00 04/15/16 02:14 100 10.00 04/15/16 02:00 98 23 101/52 100 OxyMask 10.00 04/15/16 01:45 94 20 95/52 100 OxyMask 10.00 04/15/16 01:30 96 21 87/45 95 OxyMask 10.00 04/15/16 01:15 98 22 113/57 100 OxyMask 10.00 04/15/16 01:00 98 20 114/59 100 OxyMask 10.00 04/15/16 01:00 98 04/15/16 00:45 100 24 130/58 90 OxyMask 10.00 04/15/16 00:30 93 20 114/66 100 NIV Bilevel 60.00 04/15/16 00:15 93 11 117/61 97 NIV Bilevel 60.00 04/15/16 00:00 98 60 04/15/16 00:00 98.0 93 19 63/39 NIV Bilevel 60.00 04/14/16 23:50 93 20 100 60.00 04/14/16 23:45 94 21 68/41 100 NIV Bilevel 04/14/16 23:30 98 22 60/40 100 OxyMask 10.00 04/14/16 23:17 102 04/14/16 23:15 104 26 81/41 100 OxyMask 10.00 04/14/16 23:00 112 27 131/73 100 OxyMask 10.00 04/14/16 22:45 111 26 138/78 100 OxyMask 10.00 04/14/16 22:30 110 23 138/78 100 OxyMask 10.00 04/14/16 22:15 112 25 135/66 100 Non Rebreather 15.00 04/14/16 22:00 112 24 124/73 100 Non Rebreather 15.00 04/14/16 21:45 111 26 126/70 100 Non Rebreather 15.00 04/14/16 21:30 113 21 139/76 100 Non Rebreather 15.00 04/14/16 21:15 113 27 132/70 100 Non Rebreather 15.00 04/14/16 21:00 115 27 130/69 100 Non Rebreather 15.00 04/14/16 20:45 116 27 112/66 100 Non Rebreather 15.00 04/14/16 20:30 118 26 113/70 99 Non Rebreather 15.00 04/14/16 20:22 121 04/14/16 20:15 95 15.00 04/14/16 20:15 117 35 127/77 Non Rebreather 15.00 I & O 04/15/16 07:00 Intake Total 1270 ml Output Total 465 ml Balance 805 ml Capillary Refill : General Appearance: No Apparent Distress HEENT: PERRL/EOMI Neck: Full Range of Motion Respiratory: Decreased Breath Sounds Rhonci Cardiovascular: Regular Rate, Rhythm Gastrointestinal: soft other (wounds clean/dry) Extremity: Normal Capillary Refill Neurologic/Psychiatric: Alert Oriented x3 Skin: Normal Color Lymphatic: No Adenopathy Results Lab Laboratory Tests 04/14/16 22:58: Troponin I 1.12*H 04/15/16 04:15: Troponin I 3.07*H, Albumin 2.4L, Anion Gap 10, B-Type Natriuretic Peptide 1545.7H, BUN/Creatinine Ratio 15, Basophils # (Auto) 0.0, Basophils (%) (Auto) 0 , Blood Urea Nitrogen 26H, Calcium Level 8.1L, Carbon Dioxide Level 28, Chloride Level 102, Creatinine 1.78H, Eosinophils # (Auto) 0.1, Eosinophils (%) (Auto) 1, Estimat Glomerular Filtration Rate 39, Glucose Level 82, Hematocrit 28L, Hemoglobin 8.4L, Lactic Acid Level 0.4L, Lymphocytes # (Auto) 1.1, Lymphocytes (%) (Auto) 8L, Magnesium Level 1.6L, Mean Corpuscular Hemoglobin 33 , Mean Corpuscular Hemoglobin Concent 30L, Mean Corpuscular Volume 109H, Mean Platelet Volume 11.0H, Monocytes # (Auto) 1.1H, Monocytes (%) (Auto) 8, Neutrophils # (Auto) 11.3H, Neutrophils (%) (Auto) 83H, Platelet Count 347, Potassium Level 4.3, Red Blood Count 2.55L, Red Cell Distribution Width 12.2, Sodium Level 140, White Blood Count 13.6H 04/15/16 06:24: Aubrey Test YES-POS, Arterial Blood Base Excess 3.2H, Arterial Blood HCO3 30H, Arterial Blood Oxygen Saturation 92L, Arterial Blood Partial Pressure CO2 66H, Arterial Blood Partial Pressure O2 60L, Arterial Blood Total CO2 31.6H, Arterial Blood pH 7.27*L, Blood Gas Inspired Oxygen 6L, Blood Gas Patient Temperature 98.0, Blood Gas Puncture Site LEFT RADIAL, Blood Gas Ventilator Setting NO Assessment/Plan Assessment/Plan Assess & Plan/Chief Complaint respiratory therapy s/p SARAH and SBR. continue aggressive pulmonary support with bipap as needed. ambulate. Diagnosis/Problems: Clinical Quality Measures DVT/VTE Risk/Contraindication: Risk Factor Score Per Nursin RFS Level Per Nursing on Admit: 4+=Very High BRITTANY CHAPA MD Apr 15, 2016 10:36
[2016-04-15] MEDS: FUROSEMIDE 40 MG (LASIX) TAB PO SCH (11:22)
[2016-04-15] MEDS: ASPIRIN E.C. 81 MG (ECOTRIN) TAB PO SCH (11:22)
[2016-04-15] MEDS: KCL 10 MEQ TAB (MICRO K) PO SCH (11:24)
--- NOTE | 2016-04-15 13:14 | Progress Note (SOAP) ---
Subjective Subjective/Events-last exam Fwup small bowel obstruction--S/P exploratory lab with small bowel resection and reanastamosis, acute renal failure--worsened since surgery, dehydration, COPD, Atrial fibrillation with RVR, Post-op VDRF with aspiration pneumonia. Had lethargy with hypoxia last night on rehab so had to be transferred back to ICU and placed on BIPAP. Did bump cardiac enzymes but may just be from hypoxia but dose have history of CAD with CABG. Resting comfortably right now on BIPAP. Objective Exam Vital Signs Date Time Temp Pulse Resp B/P Pulse Ox O2 Delivery O2 Flow Rate FiO2 04/15/16 11:28 98.2 04/15/16 10:08 99 6.00 04/15/16 07:58 99.3 04/15/16 07:00 107 04/15/16 06:30 105 15 86/72 93 Nasal Cannula 6.00 04/15/16 06:29 96 6.00 04/15/16 06:15 104 25 116/55 97 Nasal Cannula 6.00 04/15/16 06:00 102 26 111/55 100 OxyMask 8.00 04/15/16 05:45 104 22 142/70 100 OxyMask 8.00 04/15/16 05:30 106 21 140/65 100 OxyMask 8.00 04/15/16 05:15 103 24 128/64 100 OxyMask 8.00 04/15/16 05:00 102 20 127/64 100 OxyMask 8.00 04/15/16 04:45 104 24 117/60 100 OxyMask 8.00 04/15/16 04:30 101 25 117/61 100 OxyMask 8.00 04/15/16 04:15 102 28 122/70 100 OxyMask 8.00 04/15/16 04:00 97.3 101 21 91/53 100 OxyMask 8.00 04/15/16 04:00 95 8.00 04/15/16 03:45 97 21 116/54 100 OxyMask 8.00 04/15/16 03:30 98 21 73/43 100 OxyMask 8.00 04/15/16 03:15 98 18 107/59 100 OxyMask 8.00 04/15/16 03:00 99 23 87/48 100 OxyMask 8.00 04/15/16 02:45 98 12 104/54 99 OxyMask 8.00 04/15/16 02:30 100 24 98/49 100 OxyMask 8.00 04/15/16 02:15 101 20 111/62 91 OxyMask 8.00 04/15/16 02:14 100 10.00 04/15/16 02:00 98 23 101/52 100 OxyMask 10.00 04/15/16 01:45 94 20 95/52 100 OxyMask 10.00 04/15/16 01:30 96 21 87/45 95 OxyMask 10.00 04/15/16 01:15 98 22 113/57 100 OxyMask 10.00 04/15/16 01:00 98 20 114/59 100 OxyMask 10.00 04/15/16 01:00 98 04/15/16 00:45 100 24 130/58 90 OxyMask 10.00 04/15/16 00:30 93 20 114/66 100 NIV Bilevel 60.00 04/15/16 00:15 93 11 117/61 97 NIV Bilevel 60.00 04/15/16 00:00 98 60 04/15/16 00:00 98.0 93 19 63/39 NIV Bilevel 60.00 04/14/16 23:50 93 20 100 60.00 04/14/16 23:45 94 21 68/41 100 NIV Bilevel 04/14/16 23:30 98 22 60/40 100 OxyMask 10.00 04/14/16 23:17 102 04/14/16 23:15 104 26 81/41 100 OxyMask 10.00 04/14/16 23:00 112 27 131/73 100 OxyMask 10.00 04/14/16 22:45 111 26 138/78 100 OxyMask 10.00 04/14/16 22:30 110 23 138/78 100 OxyMask 10.00 04/14/16 22:15 112 25 135/66 100 Non Rebreather 15.00 04/14/16 22:00 112 24 124/73 100 Non Rebreather 15.00 04/14/16 21:45 111 26 126/70 100 Non Rebreather 15.00 04/14/16 21:30 113 21 139/76 100 Non Rebreather 15.00 04/14/16 21:15 113 27 132/70 100 Non Rebreather 15.00 04/14/16 21:00 115 27 130/69 100 Non Rebreather 15.00 04/14/16 20:45 116 27 112/66 100 Non Rebreather 15.00 04/14/16 20:30 118 26 113/70 99 Non Rebreather 15.00 04/14/16 20:22 121 04/14/16 20:15 95 15.00 04/14/16 20:15 117 35 127/77 Non Rebreather 15.00 I & O 04/15/16 07:00 Intake Total 1270 ml Output Total 465 ml Balance 805 ml Capillary Refill : General Appearance: No Apparent Distress Neck: Supple Respiratory: Decreased Breath Sounds Rales Cardiovascular: Regular Rate, Rhythm Systolic Murmur Gastrointestinal: normal bowel sounds non tender soft Extremity: Non Tender No Calf Tenderness No Pedal Edema Neurologic/Psychiatric: Alert Oriented x3 Results Lab Laboratory Tests 04/14/16 22:58: Troponin I 1.12*H 04/15/16 04:15: Troponin I 3.07*H, Albumin 2.4L, Anion Gap 10, B-Type Natriuretic Peptide 1545.7H, BUN/Creatinine Ratio 15, Basophils # (Auto) 0.0, Basophils (%) (Auto) 0 , Blood Urea Nitrogen 26H, Calcium Level 8.1L, Carbon Dioxide Level 28, Chloride Level 102, Creatinine 1.78H, Eosinophils # (Auto) 0.1, Eosinophils (%) (Auto) 1, Estimat Glomerular Filtration Rate 39, Glucose Level 82, Hematocrit 28L, Hemoglobin 8.4L, Lactic Acid Level 0.4L, Lymphocytes # (Auto) 1.1, Lymphocytes (%) (Auto) 8L, Magnesium Level 1.6L, Mean Corpuscular Hemoglobin 33 , Mean Corpuscular Hemoglobin Concent 30L, Mean Corpuscular Volume 109H, Mean Platelet Volume 11.0H, Monocytes # (Auto) 1.1H, Monocytes (%) (Auto) 8, Neutrophils # (Auto) 11.3H, Neutrophils (%) (Auto) 83H, Platelet Count 347, Potassium Level 4.3, Red Blood Count 2.55L, Red Cell Distribution Width 12.2, Sodium Level 140, White Blood Count 13.6H 04/15/16 06:24: Aubrey Test YES-POS, Arterial Blood Base Excess 3.2H, Arterial Blood HCO3 30H, Arterial Blood Oxygen Saturation 92L, Arterial Blood Partial Pressure CO2 66H, Arterial Blood Partial Pressure O2 60L, Arterial Blood Total CO2 31.6H, Arterial Blood pH 7.27*L, Blood Gas Inspired Oxygen 6L, Blood Gas Patient Temperature 98.0, Blood Gas Puncture Site LEFT RADIAL, Blood Gas Ventilator Setting NO Assessment/Plan Assessment/Plan Assess & Plan/Chief Complaint 1. Acute Respiratory Distress with recent aspiration pneumonia--back in ICU on BIPAP and on Augmentin 2. Elevated Troponin--possibly from hypoxia vs NSTEMI so will have cardiology evaluate 3. Small Bowel Obstruction--S/P exp lap with SARAH and small bowel resection with reanastamosis--tolerating regular diet 4. Atrial Fibrillation with RVR--back in NSR 5. Hypomagnesemia--on Mg replacement 6. Worsening Post-op Anemia--recheck lab in AM 7. Weakness--continue PT Diagnosis/Problems: Clinical Quality Measures DVT/VTE Risk/Contraindication: Risk Factor Score Per Nursin RFS Level Per Nursing on Admit: 4+=Very High AIME CANO DO Apr 15, 2016 13:14
--- NOTE | 2016-04-15 13:53 | Physical Therapy Progress Note ---
Therapy Progress Note PT attempted evaluation, however, patient declined PT due to fatigue. PT to attempt in a.m. 1 ref ([id number]) JESS LAZCANO PT Apr 15, 2016 13:53
--- NOTE | 2016-04-15 14:18 | Consultation-Cardiology ---
HPI-Cardiology Cardiology Consultation: Date of Consultation 04/15/16 Date of Admission Attending Physician Mary Jane Sanchez DO Admitting Physician Mary Jane Sanchez DO Consulting Physician Whitney RING MD HPI: Chief Complaint: shortness of breath this is a 60-year-old gentleman with history of CAD and CABG. He presented with small bowel obstruction and had surgery. Post surgery he had possible aspiration pneumonia and respiratory failure. He also had an episode of atrial fibrillation. Last night developed shortness of breath with respiratory distress and was transferred back to the ICU. The patient denied any chest pain. Review of Systems-Cardiology Review of Systems Constitutional: No As described under HPI, No no symptoms reported, No chills, No fever, No lightheadedness, No malaise, No tiredness, No weight loss, No weight gain, No other Eyes: No As described under HPI, No no symptoms reported, No blindness, No blurred vision, No contact lenses, No drainage, No decreased acuity, No foreign body sensation, No glasses, No inflammation, No pain, No photophobia, No previous injury, No shadows, No tunnel vision, No other, No vision change Ears/Nose/Throat: No As described under HPI, No no symptoms reported, No chronic hearing loss, No epistaxis, No ear discharge, No ear pain, No loose teeth, No mouth pain, No mouth swelling, No nasal drainage, No nose pain, No recent hearing loss, No throat pain, No throat swelling, No ulcerations, No other Respiratory: No no symptoms reported, No As described under HPI, No cough, No orthopnea, shortness of breathNo SOB with excertion, No SOB at rest, No stridor , No wheezing, No other Cardiovascular: No no symptoms reported, No As described under HPI, No chest pain, No edema, No irregular heart rate, No lightheadedness, No palpitations, No syncope, No other Gastrointestinal: No no symptoms reported, No As described under HPI, No abdomen distended, No abdominal pain, No blood streaked bowels, No constipation , No diarrhea, No difficulty swallowing, No nausea, No poor appetite, No poor fluid intake, No rectal bleeding, No vomiting, No other, No nausea/vomiting/ diarrhea, No stool coloration changes Genitourinary: No no symptoms reported, No As described under HPI, No burning, No dysuria, No discharge, No frequency, No flank pain, No hematuria, No incontinence, No pain, No urgency, No other, No urine frequency changes, No urine coloration changes Musculoskeletal: No no symptoms reported, No As describe under HPI, No back pain, No gout, No joint pain, No joint swelling, No muscle pain, No muscle stiffness, No neck pain, No other Skin: No no symptoms reported, No As described under HPI, No change in color, No change in hair/nails, No dryness, No lesions, No lumps, No rash, No other, No skin related problems, No ulcerations, No rash on exposed areas, No ulcerations on exposed areas Psychiatric/Neurological: No As described under HPI, No anxiety, No depression , No emotional problems, No focal weakness, No headache, No no symptoms reported , No numbness, No other, No pre-existing deficit, No seizure, No syncope, No tingling, No tremors, No weakness [id number] Hx Patient Social History Alcohol Use: Occasionally Uses Recreational Drug Use: No (TOBACCO) Smoking Status: Former Smoker Former smoker/When Quit: May 08, 2014 Type Used: Cigarettes Recent Foreign Travel: No Recent Infectious Disease Expo: No Physical Abuse Screen: No Sexual Abuse: No Immunizations Up To Date Tetanus Booster (TDap): Unknown Date of Pneumonia Vaccine: Nov 21, 2015 Date of Influenza Vaccine: Nov 21, 2015 Past Medical History PMH As described under Assessment. Family Medical History Family History: Diabetes mellitus 19 FATHER 19 MOTHER FH: COPD (chronic obstructive pulmonary disease) 19 MOTHER Hypertension 19 FATHER 19 MOTHER Prostate cancer 19 FATHER Allergies and Home Medications Allergies Coded Allergies: morphine (Verified Adverse Reaction, Intermediate, CONFUSION, 12/04/14) Home Medications Acetaminophen 325 Mg Tablet 650 MG PO MoTh (Reported) Aspirin 81 Mg Tabec 81 MG PO Q48H (Reported) Diphenhydramine HCl 50 Mg/1 Ml Vial 25 MG IV MoTh (Reported) Esomeprazole Magnesium 22.3 Mg Capsule.dr 22.3 MG PO DAILY PRN PRN HEARTBURN ( Reported) Fluticasone Propionate 9.9 Ml Wallback.susp 1 SPR NS BID PRN PRN ALLERGIES ( Reported) Furosemide 40 Mg Tablet 80 MG PO Q48H (Reported) TAKES 2 (40MG) TABLETS Hydrocodone/Acetaminophen 1 Each Tablet 1 TAB PO Q4H PRN PRN PAIN (Reported) Ipratropium/Albuterol Sulfate 3 Ml Ampul.neb 3 ML IH QID (Reported) Levothyroxine Sodium 50 Mcg Tablet 50 MCG PO DAILY (Reported) Magnesium Sulfate/D5w 1 Gm/100 Ml Piggyback 2 GM IV MoTh (Reported) Metoprolol Tartrate 100 Mg Tablet 100 MG PO BID (Reported) Multivitamin 1 Each Tablet 1 TAB PO DAILY (Reported) Potassium Chloride 20 Meq Tab.er.prt 30 MEQ PO Q48H (Reported) TAKES 1 & 1/2 (20MEQ) TABLET Spironolactone 25 Mg Tablet 25 MG PO DAILY (Reported) Vitamin B Complex 1 Each Tablet 100 MG PO DAILY (Reported) Physical Exam-Cardiology Physical Exam Vital Signs/I&O Vital Sign - Last 12Hours 04/15/16 04/15/16 04/15/16 04/15/16 04:30 04:45 05:00 05:15 Pulse 101 104 102 103 Resp B/P 117/61 117/60 127/64 128/64 Pulse Ox 100 100 100 100 O2 Delivery OxyMask OxyMask OxyMask OxyMask O2 Flow Rate 8.00 8.00 8.00 8.00 04/15/16 04/15/16 04/15/16 04/15/16 05:30 05:45 06:00 06:15 Pulse 106 104 102 104 Resp B/P 140/65 142/70 111/55 116/55 Pulse Ox 100 100 100 97 O2 Delivery OxyMask OxyMask OxyMask Nasal Cannula O2 Flow Rate 8.00 8.00 8.00 6.00 04/15/16 04/15/16 04/15/16 04/15/16 06:29 06:30 07:00 07:58 Temp 99.3 Pulse 105 107 Resp 15 B/P 86/72 Pulse Ox 96 93 O2 Delivery Nasal Cannula O2 Flow Rate 6.00 6.00 04/15/16 04/15/16 04/15/16 04/15/16 10:08 11:28 13:00 14:29 Temp 98.2 Pulse 99 Pulse Ox 99 100 O2 Flow Rate 6.00 6.00 Capillary Refill : Constitutional: No appears stated age, No AAO x 3, No apparent distress, No PERRL, No well-developed, No well-nourished, No other HEENT: No PERRL, No normal ENT inspection, No TMs normal, No pharynx normal, No scleral icterus (R), No scleral icterus (L), No pale conjunctivae (R), No pale conjunctivae (L), No photophobia, No TM abnormal (R), No TM abnormal (L), No pharyngeal erythema, No tonsillar exudate, No other, No discharge, No EOMI, No hearing is well preserved, No hard of hearing, No oral hygience is good, No ulceration, No xanthelasmas are seen Neck: No non-tender, No full range of motion, No supple, No normal inspection, No carotid bruit, No limited range of motion, No lymphadenopathy (R), No lymphadenopathy (L), No tender lateral, No tender midline, No thyromegaly, No other, No carotid pulses are 2 + bilaterally, No with good upstrokes Respiratory: No accessory muscle use, No respiratory distress, No chest tender , No chest expansion is symmetric, No chest is bilaterally symmetric, No lungs clear to percussion, No lungs clear to auscultation, cracklesNo rhonchi, No rales, No stridor, No wheezing, No pleural rub, No other Cardiovascular: No regular rate-rhythm, No irregularly irregular, No extra beats, No parasternal heave is noted, No JVD, No edema, No bradycardia, No tachycardia, No point of maximal impulse, No cardiac thrills are palpable, No S1 and S2, No gallop/S3, No gallop/S4, No diastolic murmur, No systolic murmur, No friction rub, No click, No other Gastrointestinal: No tender, No soft, No round, No distended, No pulsatile mass , No organomegaly, No guarding, No rebound, No tenderness, No hernia, No mass, No audible bowel sounds, No abnormal bowel sounds, No abdominal bruits, No spleenomegaly, No other Rectal: deferred Extremities: No normal range of motion, No non-tender, No normal inspection, No pedal edema, No calf tenderness, No normal capillary refill, No pelvis stable , No calf tenderness, No inflammation, No pedal edema, No slow capillary refill , No swelling, No other, No abrasion, No clubbing, No cyanosis, No ecchymosis, No laceration, No no lower extremity edema bilateral, No significant edema, No tenderness, No wound Neurologic/Psychiatric: No glove turner II-XII nml as tested, No no motor/sensory deficits, No alert, No normal mood/affect, No oriented x 3, No abnormal cerebellar tests, No abnormal glove turner II-XII, No abnormal gait, No aphasia, No EOM palsy, No facial droop, No motor weakness, No sensory deficit, No depressed affect, No disoriented x 3, No other, No grossly intact, No power is 5/5 both on sides Skin: No normal color, No warm/dry, No cyanosis, No cool, No diaphoresis, No damp, No ecchymosis, No jaundice, No mottled, No pallor, No rash, No tattoos/ piercings, No ulcerations, No rash on exposed areas, No ulcerations on exposed areas, No other Data Review Labs Laboratory Tests 04/14/16 22:58: Troponin I 1.12*H 04/15/16 04:15: Troponin I 3.07*H, Albumin 2.4L, Anion Gap 10, B-Type Natriuretic Peptide 1545.7H, BUN/Creatinine Ratio 15, Basophils # (Auto) 0.0, Basophils (%) (Auto) 0 , Blood Urea Nitrogen 26H, Calcium Level 8.1L, Carbon Dioxide Level 28, Chloride Level 102, Creatinine 1.78H, Eosinophils # (Auto) 0.1, Eosinophils (%) (Auto) 1, Estimat Glomerular Filtration Rate 39, Glucose Level 82, Hematocrit 28L, Hemoglobin 8.4L, Lactic Acid Level 0.4L, Lymphocytes # (Auto) 1.1, Lymphocytes (%) (Auto) 8L, Magnesium Level 1.6L, Mean Corpuscular Hemoglobin 33 , Mean Corpuscular Hemoglobin Concent 30L, Mean Corpuscular Volume 109H, Mean Platelet Volume 11.0H, Monocytes # (Auto) 1.1H, Monocytes (%) (Auto) 8, Neutrophils # (Auto) 11.3H, Neutrophils (%) (Auto) 83H, Platelet Count 347, Potassium Level 4.3, Red Blood Count 2.55L, Red Cell Distribution Width 12.2, Sodium Level 140, White Blood Count 13.6H 04/15/16 06:24: Aubrey Test YES-POS, Arterial Blood Base Excess 3.2H, Arterial Blood HCO3 30H, Arterial Blood Oxygen Saturation 92L, Arterial Blood Partial Pressure CO2 66H, Arterial Blood Partial Pressure O2 60L, Arterial Blood Total CO2 31.6H, Arterial Blood pH 7.27*L, Blood Gas Inspired Oxygen 6L, Blood Gas Patient Temperature 98.0, Blood Gas Puncture Site LEFT RADIAL, Blood Gas Ventilator Setting NO ECG Impression ECG Initial ECG Rhythm: Normal Sinus A/P-Cardiology Assessment/Admission Diagnosis 1. Acute respiratory distress. 2. Atrial fibrillation. 3. Acute diastolic congestive heart failure. 4. Non-ST elevation MT. Plan 1. Acute respiratory distress - likely combination of COPD, aspiration pneumonia, acute diastolic heart failure. Defer management of respiratory pathology to Dr. Sanchez and Dr. Mcdaniel. 2. Atrial fibrillation: currently in sinus tachycardia. Increase dose of metoprolol. 3. Acute diastolic congestive heart failure: normal EF and elevated BNP. Lasix 40 mg IV. 4. Non-ST elevation MT: due to recent surgery, I will request surgical clearance for Plavix and ACS dose Lovenox. Continue aspirin. Add Lipitor. may require a stress test before discharge. 5. Elevated creatinine: Needs to see a instrumentation instructor. 6. possible left atrial thrombus: Full anticoagulation with Lovenox is recommended. DIAN may be recommended when more stable pulmonary mo. Thank you for your consultation. Please call me if you have any questions. Lisette Ring MD, FACP, FACC, FSCAI, FHRS, CCDS Interventional Cardiology Cardiac Electrophysiology Vascular Medicine and Endovascular Interventions Clinical Quality Measures DVT/VTE Risk/Contraindication: Risk Factor Score Per Nursin RFS Level Per Nursing on Admit: 4+=Very High Whitney RING MD Apr 15, 2016 2:17 pm
[2016-04-15] MEDS: meTOproloL SUCCINATE 50 MG (TOPROL XL) TAB PO SCH ×2 (15:57→20:23)
[2016-04-15] MEDS: ENOXAPARIN 80 MG/0.8 ML (LOVENOX) SYR SC SCH (16:52)
[2016-04-15] MEDS: ATORVASTATIN 20 MG (LIPITOR) TABLET PO SCH (20:23)
[2016-04-15] MEDS ORDERED: ENOXAPARIN 40 MG/0.4 ML (LOVENOX) SYR SC SCH (21:00)
[2016-04-15] MEDS: DEXMEDETOMIDINE 400 MCG/100 ML IV SCH (22:06)
[2016-04-15] MEDS: [UNRECOGNIZED DRUG - OTHER] IV SCH (22:06)
[2016-04-16] VITALS (20 sets, daily range): BP systolic 87–138; BP diastolic 55–81
[2016-04-16] MEDS: RT-ALBUTEROL/IPRATROPIUM 3 ML (DUONEB) VIAL INH SCH ×6 (02:28→21:19)
[2016-04-16] MEDS: ENOXAPARIN 80 MG/0.8 ML (LOVENOX) SYR SC SCH ×2 (04:51→17:00)
[2016-04-16 05:15] LABS: BASOPHILS % (AUTO) 0 % (0-10); EOSINOPHILS # (AUTO) 0.1 10^3/uL (0.0-0.3); EOSINOPHILS % (AUTO) 1 % (0-10); LYMPHOCYTES % (AUTO) 8 % (12-44); MEAN CORPUSCULAR HEMOGLOBIN 33 PG (25-34); MEAN CORPUSCULAR HGB CONC 30 G/DL (32-36); MEAN CORPUSCULAR VOLUME 109 FL (80-99); MEAN PLATELET VOLUME 11.1 FL (7.4-10.4); MONOCYTES # (AUTO) 1.1 X 10^3 (0.0-1.0); MONOCYTES % (AUTO) 9 % (0-12); NEUTROPHILS # (AUTO) 9.6 X 10^3 (1.8-7.8); NEUTROPHILS % (AUTO) 81 % (42-75); PLATELET COUNT 392 10^3/uL (130-400); RED BLOOD COUNT 2.52 10^6/uL (4.35-5.85); RED CELL DISTRIBUTION WIDTH 11.9 % (10.0-14.5); WHITE BLOOD COUNT 11.8 10^3/uL (4.3-11.0)
[2016-04-16 05:35] LABS: CALCIUM 8.2 MG/DL (8.5-10.1); CREATININE SERUM 1.36 MG/DL (0.60-1.30); MAGNESIUM 1.5 MG/DL (1.8-2.4); POTASSIUM 4.2 MMOL/L (3.6-5.0)
[2016-04-16] MEDS: KCL 20 MEQ TAB (K-DUR) PO SCH (05:46)
[2016-04-16] MEDS: MAGNESIUM 1 GM/100 ML IVPB 100 ML IV SCH ×3 (05:46→07:56)
[2016-04-16] MEDS: POTASSIUM CL 10MEQ/50ML IVPB 50 ML IV SCH (05:46)
[2016-04-16] MEDS: LEVOTHYROXINE 50 MCG (LEVOTHROID) TAB PO SCH (06:21)
[2016-04-16] MEDS: BETHANECHOL 25 MG (URECHOLINE) TAB PO SCH ×4 (06:21→23:27)
[2016-04-16] MEDS: MULTIVIT W/MINERALS TAB (THERAGRAN M) PO SCH (06:21)
[2016-04-16] MEDS: NYSTATIN ORAL SUSP 5 ML UDC PO SCH ×4 (06:21→23:27)
[2016-04-16] MEDS: THIAMINE 100 MG (VITAMIN B-1) TAB PO SCH (06:21)
[2016-04-16] MEDS: AUGMENTIN 875 MG TAB (AMOXICILLIN/CLAVULANATE) PO SCH ×2 (06:21→16:56)
[2016-04-16] MEDS: RT-BUDESONIDE NEBS 0.5 MG/2ML (PULMICORT) AMP INH SCH ×2 (06:49→18:33)
--- NOTE | 2016-04-16 07:06 | Pulmonary Progress Note ---
Subjective Subjective/Events-last exam No complications noted. Exam Exam Vital Signs Date Time Temp Pulse Resp B/P Pulse Ox O2 Delivery O2 Flow Rate FiO2 04/16/16 06:49 98 4.00 04/16/16 05:00 92 18 116/69 100 Nasal Cannula 6.00 04/16/16 04:20 89 20 95 35.00 04/16/16 04:00 40 04/16/16 04:00 89 18 130/81 94 Nasal Cannula 6.00 04/16/16 04:00 98.6 04/16/16 03:00 81 20 87/59 99 Nasal Cannula 6.00 04/16/16 02:28 86 18 100 40.00 04/16/16 02:00 84 16 120/57 100 Nasal Cannula 6.00 04/16/16 01:06 88 10 108/69 96 Nasal Cannula 6.00 04/16/16 01:06 89 04/16/16 00:11 93 23 100 50.00 04/16/16 00:00 94 15 117/66 100 Nasal Cannula 6.00 04/16/16 00:00 98.2 04/16/16 00:00 40 04/15/16 23:00 93 20 102/61 100 Nasal Cannula 6.00 04/15/16 22:08 96 14 100 50.00 04/15/16 22:00 96 26 139/78 100 Nasal Cannula 6.00 04/15/16 21:57 94 4.00 04/15/16 21:00 99 26 122/67 100 Nasal Cannula 6.00 04/15/16 20:00 4.00 04/15/16 20:00 98.3 04/15/16 20:00 98 25 99/54 100 Nasal Cannula 6.00 04/15/16 19:26 102 04/15/16 19:00 105 23 123/67 100 Nasal Cannula 6.00 04/15/16 18:50 4.00 04/15/16 18:46 94 4.00 04/15/16 18:00 108 29 123/70 93 Nasal Cannula 6.00 04/15/16 17:35 99.4 04/15/16 17:00 96 27 119/77 99 Nasal Cannula 6.00 04/15/16 16:00 100 16 124/76 98 Nasal Cannula 6.00 04/15/16 15:00 96 21 137/89 100 Nasal Cannula 6.00 04/15/16 14:29 100 6.00 04/15/16 14:00 96 22 113/67 97 Nasal Cannula 6.00 04/15/16 13:00 99 14 122/78 99 Nasal Cannula 6.00 04/15/16 13:00 99 04/15/16 11:28 98.2 04/15/16 11:00 101 17 111/66 100 Nasal Cannula 6.00 04/15/16 10:08 99 6.00 04/15/16 10:00 108 24 111/59 99 Nasal Cannula 6.00 04/15/16 09:00 118 22 117/60 Nasal Cannula 6.00 04/15/16 07:58 99.3 I & O 04/16/16 06:59 Intake Total 1390 ml Output Total 2875 ml Balance -1485 ml General Appearance: No Apparent Distress HEENT: PERRL/EOMI Neck: Supple Respiratory: Decreased Breath Sounds Rales Cardiovascular: Regular Rate, Rhythm Systolic Murmur Gastrointestinal: normal bowel sounds non tender soft Extremity: Non Tender No Calf Tenderness No Pedal Edema Neurologic/Psychiatric: Alert Oriented x3 Skin: Normal Color Lymphatic: No Adenopathy Results Lab Laboratory Tests 04/15/16 04:15 04/16/16 04:55 Assessment/Plan Assessment/Plan Acute respiratory failure with aspiration - infection is improving -zosyn -SVN's Q4 -Pt used BiPAP through the night metabolic encephalopathy - improved -monitor NSTEMI Small bowel obstruction s/p ex lap Inguinal hernia bilateral Acute renal failure/dehydration -IVF Pt is doing much better. Will make ICU step down. Clinical Quality Measures DVT/VTE Risk/Contraindication: Risk Factor Score Per Nursin RFS Level Per Nursing on Admit: 4+=Very High GRETCHEN OLSEN DO Apr 16, 2016 07:06
--- NOTE | 2016-04-16 08:15 | Progress Note (SOAP) ---
Subjective Subjective/Events-last exam patient feeling better. Patient has no complaints this morning. Anemia. Elevated troponin non-ST elevated GA. Magnesium 1.5 hypomagnesemia. History of small bowel obstruction and bilateral inguinal hernia. Acute renal failure doing better. Dehydration doing better. COPD. Atrial fibrillation with RVR. Postoperative aspiration pneumonia Objective Exam Vital Signs Date Time Temp Pulse Resp B/P Pulse Ox O2 Delivery O2 Flow Rate FiO2 04/16/16 06:49 98 4.00 04/16/16 05:00 92 18 116/69 100 Nasal Cannula 6.00 04/16/16 04:20 89 20 95 35.00 04/16/16 04:00 40 04/16/16 04:00 89 18 130/81 94 Nasal Cannula 6.00 04/16/16 04:00 98.6 04/16/16 03:00 81 20 87/59 99 Nasal Cannula 6.00 04/16/16 02:28 86 18 100 40.00 04/16/16 02:00 84 16 120/57 100 Nasal Cannula 6.00 04/16/16 01:06 88 10 108/69 96 Nasal Cannula 6.00 04/16/16 01:06 89 04/16/16 00:11 93 23 100 50.00 04/16/16 00:00 94 15 117/66 100 Nasal Cannula 6.00 04/16/16 00:00 98.2 04/16/16 00:00 40 04/15/16 23:00 93 20 102/61 100 Nasal Cannula 6.00 04/15/16 22:08 96 14 100 50.00 04/15/16 22:00 96 26 139/78 100 Nasal Cannula 6.00 04/15/16 21:57 94 4.00 04/15/16 21:00 99 26 122/67 100 Nasal Cannula 6.00 04/15/16 20:00 4.00 04/15/16 20:00 98.3 04/15/16 20:00 98 25 99/54 100 Nasal Cannula 6.00 04/15/16 19:26 102 04/15/16 19:00 105 23 123/67 100 Nasal Cannula 6.00 04/15/16 18:50 4.00 04/15/16 18:46 94 4.00 04/15/16 18:00 108 29 123/70 93 Nasal Cannula 6.00 04/15/16 17:35 99.4 04/15/16 17:00 96 27 119/77 99 Nasal Cannula 6.00 04/15/16 16:00 100 16 124/76 98 Nasal Cannula 6.00 04/15/16 15:00 96 21 137/89 100 Nasal Cannula 6.00 04/15/16 14:29 100 6.00 04/15/16 14:00 96 22 113/67 97 Nasal Cannula 6.00 04/15/16 13:00 99 14 122/78 99 Nasal Cannula 6.00 04/15/16 13:00 99 04/15/16 11:28 98.2 04/15/16 11:00 101 17 111/66 100 Nasal Cannula 6.00 04/15/16 10:08 99 6.00 04/15/16 10:00 108 24 111/59 99 Nasal Cannula 6.00 04/15/16 09:00 118 22 117/60 Nasal Cannula 6.00 I & O 04/16/16 07:00 Intake Total 1390 ml Output Total 2875 ml Balance -1485 ml Capillary Refill : General Appearance: No Apparent Distress WD/WN HEENT: Normal ENT Inspection Neck: Full Range of Motion Normal Inspection Respiratory: Chest Non Tender No Accessory Muscle Use No Respiratory Distress Decreased Breath Sounds Cardiovascular: Irregularly Irregular Gastrointestinal: soft Results Lab Laboratory Tests 04/16/16 04:55: Anion Gap 11, BUN/Creatinine Ratio 15, Basophils # (Auto) 0.0, Basophils (%) ( Auto) 0, Blood Urea Nitrogen 21H, Calcium Level 8.2L, Carbon Dioxide Level 28, Chloride Level 104, Creatinine 1.36H, Eosinophils # (Auto) 0.1, Eosinophils (%) (Auto) 1, Estimat Glomerular Filtration Rate 54, Glucose Level 90, Hematocrit 27L, Hemoglobin 8.2L, Lymphocytes # (Auto) 1.0, Lymphocytes (%) (Auto) 8L, Magnesium Level 1.5L, Mean Corpuscular Hemoglobin 33, Mean Corpuscular Hemoglobin Concent 30L, Mean Corpuscular Volume 109H, Mean Platelet Volume 11.1H , Monocytes # (Auto) 1.1H, Monocytes (%) (Auto) 9, Neutrophils # (Auto) 9.6H, Neutrophils (%) (Auto) 81H, Platelet Count 392, Potassium Level 4.2, Red Blood Count 2.52L, Red Cell Distribution Width 11.9, Sodium Level 143, White Blood Count 11.8H Assessment/Plan Assessment/Plan Assess & Plan/Chief Complaint acute renal insufficiency. Non-ST elevated GA. Acute renal failure resolving. Dehydration. COPD. Atrial fibrillation area Postop aspiration pneumonia. Small bowel obstruction with bilateral inguinal hernia. Patient voicing no complaints this morning. Patient states he's feeling better Diagnosis/Problems: Clinical Quality Measures DVT/VTE Risk/Contraindication: Risk Factor Score Per Nursin RFS Level Per Nursing on Admit: 4+=Very High BABATUNDE RYDER DO Apr 16, 2016 08:15
[2016-04-16] MEDS: PANTOPRAZOLE 40 MG/10 ML (PROTONIX) VIAL IV SCH ×2 (08:55→23:27)
[2016-04-16] MEDS: CLOPIDOGREL 75 MG (PLAVIX) TABLET PO SCH (08:55)
[2016-04-16] MEDS: meTOproloL SUCCINATE 50 MG (TOPROL XL) TAB PO SCH ×2 (08:55→23:30)
[2016-04-16] MEDS: SPIRONOLACTONE 25 MG (ALDACTONE) TAB PO SCH (08:55)
[2016-04-16] MEDS: BISACODYL 10 MG SUPP (DULCOLAX) PR SCH ×2 (08:56→22:00)
[2016-04-16] MEDS: NICOTINE 21 MG (NICODERM) PATCH TD SCH (08:57)
[2016-04-16] MEDS: PATCH REMOVAL TP SCH (09:04)
--- NOTE | 2016-04-16 09:42 | Diagnostic Imaging Report ---
INDICATION: Shortness of breath. Comparison is made with prior examination from 04/15/16. FINDINGS: There is cardiomegaly. This is some venous congestion. There has been a previous median sternotomy. There is some small left pleural effusion. There is no pneumothorax. Mediastinum is unremarkable. IMPRESSION: Cardiomegaly and some central pulmonary venous congestion with small left pleural effusion. Dictated by: Dictated on workstation # [id number]
--- NOTE | 2016-04-16 10:10 | Physical Therapy Evaluation ---
PT Evaluation-General Medical Diagnosis Admission Date Apr 14, 2016 at 20:48 Medical Diagnosis: bowel resection Onset Date: Apr 14, 2016 Therapy Diagnosis Therapy Diagnosis: debility Height/Weight Height (Feet): 6 Height (Inches): 2.00 Weight (Pounds): 174 Weight (Ounces): 6.0 Precautions Precautions/Isolations: Fall Prevention, Standard Precautions Weight Bear Status Weight Bearing Restriction: Full Weight Bearing Location Restriction: LE Bilateral Referral Physician: Laura Reason for Referral: Evaluation/Treatment Medical History Pertinent Medical History: Atrial Fib, CABG, CAD, COPD, Heart Failure, HTN, Renal Insufficiency, Smoking Current History s/p lap lysis of adhesions and small bowel resection. Previously on ARU, transferred back to ICU due to respiratory distress. Reviewed History: Yes Social History Home: Single Level Current Living Status: Spouse Entry Into Home: Stairs With Railing PT Steps Into Home: 2 Prior/Core FIM Prior Level of Function Functional Howard Measure 0=Not Assessed/NA 4=Minimal Assistance 1=Total Assistance 5=Supervision or Setup 2=Maximal Assistance 6=Modified Howard 3=Moderate Assistance 7=Complete Howard Bed Mobility: 6 Transfers (B,C,W/C) (FIM): 6 Gait: 6 SPC at PLOF PT Evaluation-Current Subjective Pt in bed, agreeable. "I actually feel pretty good today. I would like to go for a walk". Objective Patient Orientation: Person, Place, Time, Situation Problem Solving: Good Attachments: Oxygen, Helms Catheter, Other-See Comments, IV monitors ROM/Strength ROM Upper Extremities WFL for functional mobility ROM Lower Extremities WFL for functional mobility Strength Upper Extremities WFL for functional mobility Strenght Lower Extremities Grossly 3+/5 Integumentary/Posture Integumentary See nurses' notes Bowel Incontinence: No Bladder Incontinence: Helms Cath Neuromuscular (Tone, Coordination, Reflexes) grossly intact Sensory Vision: Functional Hearing: Functional Transfers Functional Howard Measure 0=Not Assessed/NA 4=Minimal Assistance 1=Total Assistance 5=Supervision or Setup 2=Maximal Assistance 6=Modified Howard 3=Moderate Assistance 7=Complete Howard Supine to/from Sit: 4 Sit to/from Stand: 4 Gait Mode of Locomotion: Walk Anticipated Mode of Locomotion: Walk Gait (FIM): 1 Distance (FIM): 1=up to 49 ft Distance: 25 Gait Level of Assist: 4 Gait Persons Needed: 1 Gait Assistive Device: FWW Comments/Gait Description Pt ambulated with slow, shuffling steps with FWW. No raciel LOB, CGA for safety. Balance Sitting Static: Good Sitting Dynamic: Good Standing Static: Fair Standing Dynamic: Fair Treatment Pt to [facility] [place], min a x 1 for sit<->stand from low toilet. Dependent for mercy-[facility]. Recovery break required on [facility] [place] before Pt could resume evaluation due to SOB. Sats > 85% with activity. Ambulated around bed with FWW with CGA for safety. Up in chair with needs met, O2 in situ after treatment. Assessment/Needs Clinical presentation: High complexity, unstable. Pt's problem list includes: decreased functional activity tolerance, decreased functional strength, decreased balance/increased fall risk, and decreased (I) with functional mobility. Pt would benefit from skilled PT to address outlined dysfunctions and restore PLOF, decrease caregiver burden. Rehab Potential: Fair Post Rehab Potential-Barriers: Decreased functional activity tolerance/SOB PT Short Term Goals Short Term Goals Time Frame: Apr 23, 2016 Transfers (B,C,W/C) (FIM): 6 PT Mcfp Goals Sprinkler Inspector Goals PT Sprinkler Inspector Goals Time Frame: Apr 30, 2016 Transfers (B,C,W/C) (FIM): 6 Gait (FIM): 6 Gait distance (FIM): 3=150 ft Distance: 150 Gait Level of Assist: 6 Gait Assistive Device: FWW Stairs (FIM): 5 # of Steps: 4 Stairs Level Of Assist: 6 Pt goals established to allow safe return home at PLOF and to decrease caregiver burden. PT Plan Problem List Problem List: Activity Tolerance, Functional Strength, Safety, Balance, Gait, Transfer, Bed Mobility Treatment/Plan Treatment Plan: Continue Plan of Care Treatment Plan: Bed Mobility, Education, Functional Activity Kris, Functional Strength, Gait, Safety, Therapeutic Exercise, Transfers Treatment Duration: Apr 30, 2016 # of days/week 5-6 Visits Per Week: 5-6 Pt/Family Agrees w/Plan: Yes Safety Risks/Education Patient Education: Safety Issues Teaching Recipient: Patient Teaching Methods: Discussion Response to Teaching: Verbalize Understanding Pursed lip breathing, safety with functional mobility Discharge Recommendations Therapy D/C Recommendations: Home w/ Family Support, Physical Therapy Home Care Equpiment Recommendations-D/C: Front Wheeled Walker Time/GCodes Time In: 917 Time Out: 943 Total Billed Treatment Time: 26 Total Billed Treatment 1, EVHIGHC x 26' G Codes Necessary: ELIZABETH Lombardi DPAngelica Apr 16, 2016 10:10
--- NOTE | 2016-04-16 10:44 | Progress Note (SOAP) ---
Subjective Subjective/Events-last exam Patient seen with Dr. Stephens. Patient reports that he is doing better. Breathing improving, but still periods of SOB. minimal abdominal pain. Tolerating diet. Diarrhea improving. No N/V. No fevers/chills. Patient up in bedside chair. Review of Systems General: No Chills, No Night Sweats Gastrointestinal: : Abdominal Pain (Minimal)No: Nausea, Vomiting Objective Exam Vital Signs Date Time Temp Pulse Resp B/P Pulse Ox O2 Delivery O2 Flow Rate FiO2 04/16/16 10:34 98 4.00 04/16/16 08:00 97.5 04/16/16 07:00 85 04/16/16 06:49 98 4.00 04/16/16 05:00 92 18 116/69 100 Nasal Cannula 6.00 04/16/16 04:20 89 20 95 35.00 04/16/16 04:00 40 04/16/16 04:00 89 18 130/81 94 Nasal Cannula 6.00 04/16/16 04:00 98.6 04/16/16 03:00 81 20 87/59 99 Nasal Cannula 6.00 04/16/16 02:28 86 18 100 40.00 04/16/16 02:00 84 16 120/57 100 Nasal Cannula 6.00 04/16/16 01:06 88 10 108/69 96 Nasal Cannula 6.00 04/16/16 01:06 89 04/16/16 00:11 93 23 100 50.00 04/16/16 00:00 94 15 117/66 100 Nasal Cannula 6.00 04/16/16 00:00 98.2 04/16/16 00:00 40 04/15/16 23:00 93 20 102/61 100 Nasal Cannula 6.00 04/15/16 22:08 96 14 100 50.00 04/15/16 22:00 96 26 139/78 100 Nasal Cannula 6.00 04/15/16 21:57 94 4.00 04/15/16 21:00 99 26 122/67 100 Nasal Cannula 6.00 04/15/16 20:00 4.00 04/15/16 20:00 98.3 04/15/16 20:00 98 25 99/54 100 Nasal Cannula 6.00 04/15/16 19:26 102 04/15/16 19:00 105 23 123/67 100 Nasal Cannula 6.00 04/15/16 18:50 4.00 04/15/16 18:46 94 4.00 04/15/16 18:00 108 29 123/70 93 Nasal Cannula 6.00 04/15/16 17:35 99.4 04/15/16 17:00 96 27 119/77 99 Nasal Cannula 6.00 04/15/16 16:00 100 16 124/76 98 Nasal Cannula 6.00 04/15/16 15:00 96 21 137/89 100 Nasal Cannula 6.00 04/15/16 14:29 100 6.00 04/15/16 14:00 96 22 113/67 97 Nasal Cannula 6.00 04/15/16 13:00 99 14 122/78 99 Nasal Cannula 6.00 04/15/16 13:00 99 04/15/16 11:28 98.2 04/15/16 11:00 101 17 111/66 100 Nasal Cannula 6.00 I & O 04/16/16 07:00 Intake Total 1390 ml Output Total 2875 ml Balance -1485 ml Capillary Refill : General Appearance: No Apparent Distress WD/WN HEENT: PERRL/EOMI Neck: Full Range of Motion Normal Inspection Non Tender Supple Respiratory: No Accessory Muscle Use No Respiratory Distress Cardiovascular: Regular Rate, Rhythm No JVD Gastrointestinal: normal bowel sounds soft tenderness other (incisions C/D/I.) Extremity: Normal Capillary Refill Normal Inspection Normal Range of Motion Neurologic/Psychiatric: Alert Oriented x3 Skin: Normal Color Warm/Dry Results Lab Laboratory Tests 04/16/16 04:55: Anion Gap 11, BUN/Creatinine Ratio 15, Basophils # (Auto) 0.0, Basophils (%) ( Auto) 0, Blood Urea Nitrogen 21H, Calcium Level 8.2L, Carbon Dioxide Level 28, Chloride Level 104, Creatinine 1.36H, Eosinophils # (Auto) 0.1, Eosinophils (%) (Auto) 1, Estimat Glomerular Filtration Rate 54, Glucose Level 90, Hematocrit 27L, Hemoglobin 8.2L, Lymphocytes # (Auto) 1.0, Lymphocytes (%) (Auto) 8L, Magnesium Level 1.5L, Mean Corpuscular Hemoglobin 33, Mean Corpuscular Hemoglobin Concent 30L, Mean Corpuscular Volume 109H, Mean Platelet Volume 11.1H , Monocytes # (Auto) 1.1H, Monocytes (%) (Auto) 9, Neutrophils # (Auto) 9.6H, Neutrophils (%) (Auto) 81H, Platelet Count 392, Potassium Level 4.2, Red Blood Count 2.52L, Red Cell Distribution Width 11.9, Sodium Level 143, White Blood Count 11.8H Assessment/Plan Assessment/Plan Assess & Plan/Chief Complaint respiratory distress. continue aggressive pulmonary support with bipap as needed. ambulate. Regular diet. JUAN ortiz. Diagnosis/Problems: Clinical Quality Measures DVT/VTE Risk/Contraindication: Risk Factor Score Per Nursin RFS Level Per Nursing on Admit: 4+=Very High LISSETH CLARK APRN Apr 16, 2016 10:44 am
--- NOTE | 2016-04-16 12:33 | Cardiology Progress Note ---
Cardiology SOAP Progress Note Subjective: improved shortness of breath Objective: I&O/Vital Signs Vital Sign - Last 12Hours 04/16/16 04/16/16 04/16/16 04/16/16 01:06 01:06 02:00 02:28 Pulse 89 88 84 86 Resp 10 16 18 B/P 108/69 120/57 Pulse Ox 96 100 100 O2 Delivery Nasal Cannula Nasal Cannula O2 Flow Rate 6.00 6.00 40.00 04/16/16 04/16/16 04/16/16 04/16/16 03:00 04:00 04:00 04:00 Temp 98.6 Pulse 81 89 Resp 20 18 B/P 87/59 130/81 Pulse Ox 99 94 O2 Delivery Nasal Cannula Nasal Cannula O2 Flow Rate 6.00 6.00 FiO2 40 04/16/16 04/16/16 04/16/16 04/16/16 04:20 05:00 06:49 07:00 Pulse 89 92 85 Resp 20 18 B/P 116/69 Pulse Ox 95 100 98 O2 Delivery Nasal Cannula O2 Flow Rate 35.00 6.00 4.00 04/16/16 04/16/16 08:00 10:34 Temp 97.5 Pulse Ox 98 O2 Flow Rate 4.00 Intake and Output 04/16/16 00:00 Intake Total 680 ml Output Total 2050 ml Balance -1370 ml Weight (Pounds): 174 Weight (Ounces): 6.0 Weight (Calculated Kilograms): [id number] Constitutional: No appears stated age, No AAO x 3, No apparent distress, No PERRL, No well-developed, No well-nourished, No other Respiratory: No accessory muscle use, No respiratory distress, No chest tender , No chest expansion is symmetric, No chest is bilaterally symmetric, No lungs clear to percussion, No lungs clear to auscultation, cracklesNo rhonchi, No rales, No stridor, No wheezing, No pleural rub, No other Cardiovascular: No regular rate-rhythm, No irregularly irregular, No extra beats, No parasternal heave is noted, No JVD, No edema, No bradycardia, No tachycardia, No point of maximal impulse, No cardiac thrills are palpable, No S1 and S2, No gallop/S3, No gallop/S4, No diastolic murmur, No systolic murmur, No friction rub, No click, No other Gastrointestional: No tender, No soft, No round, No distended, No pulsatile mass, No organomegaly, No guarding, No rebound, No tenderness, No hernia, No mass, No audible bowel sounds, No abnormal bowel sounds, No abdominal bruits, No spleenomegaly, No other Extremities: No normal range of motion, No non-tender, No normal inspection, No pedal edema, No calf tenderness, No normal capillary refill, No pelvis stable , No calf tenderness, No inflammation, No pedal edema, No slow capillary refill , No swelling, No other, No abrasion, No clubbing, No cyanosis, No ecchymosis, No laceration, No no lower extremity edema bilateral, No significant edema, No tenderness, No wound Neurologic/Psychiatric: No receiving and processing supervisor II-XII nml as tested, No no motor/sensory deficits, No alert, No normal mood/affect, No oriented x 3, No abnormal cerebellar tests, No abnormal receiving and processing supervisor II-XII, No abnormal gait, No aphasia, No EOM palsy, No facial droop, No motor weakness, No sensory deficit, No depressed affect, No disoriented x 3, No other, No grossly intact, No power is 5/5 both on sides Skin: No normal color, No warm/dry, No cyanosis, No cool, No diaphoresis, No damp, No ecchymosis, No jaundice, No mottled, No pallor, No rash, No tattoos/ piercings, No ulcerations, No rash on exposed areas, No ulcerations on exposed areas, No other Results/Procedures: Labs Laboratory Tests 04/16/16 04:55: Anion Gap 11, BUN/Creatinine Ratio 15, Basophils # (Auto) 0.0, Basophils (%) ( Auto) 0, Blood Urea Nitrogen 21H, Calcium Level 8.2L, Carbon Dioxide Level 28, Chloride Level 104, Creatinine 1.36H, Eosinophils # (Auto) 0.1, Eosinophils (%) (Auto) 1, Estimat Glomerular Filtration Rate 54, Glucose Level 90, Hematocrit 27L, Hemoglobin 8.2L, Lymphocytes # (Auto) 1.0, Lymphocytes (%) (Auto) 8L, Magnesium Level 1.5L, Mean Corpuscular Hemoglobin 33, Mean Corpuscular Hemoglobin Concent 30L, Mean Corpuscular Volume 109H, Mean Platelet Volume 11.1H , Monocytes # (Auto) 1.1H, Monocytes (%) (Auto) 9, Neutrophils # (Auto) 9.6H, Neutrophils (%) (Auto) 81H, Platelet Count 392, Potassium Level 4.2, Red Blood Count 2.52L, Red Cell Distribution Width 11.9, Sodium Level 143, White Blood Count 11.8H A/P: Assessment/Dx: 1. Acute respiratory distress. 2. Atrial fibrillation. 3. Acute diastolic congestive heart failure. 4. Non-ST elevation [place]. Plan: 1. Acute respiratory distress - likely combination of COPD, aspiration pneumonia, acute diastolic heart failure. Defer management of respiratory pathology to Dr. Sanchez and Dr. Mcdaniel. 2. Atrial fibrillation: currently in sinus tachycardia. metoprolol dose increased yesterday. 3. Acute diastolic congestive heart failure: normal EF and elevated BNP. Lasix 40 mg IV. 4. Non-ST elevation [place]: Plavix and Lovenox. Continue aspirin. Add Lipitor. may require a stress test before discharge. 5. Elevated creatinine: Needs to see a marionette performer. 6. possible left atrial thrombus: Full anticoagulation with Lovenox is recommended. DIAN may be recommended when more stable pulmonary mo. Thank you for your consultation. Please call me if you have any questions. Lisette Marcelo MD, FACP, FACC, FSCAI, FHRS, CCDS Interventional Cardiology Cardiac Electrophysiology Vascular Medicine and Endovascular Interventions Whitney MARCELO MD Apr 16, 2016 12:33 pm
[2016-04-16] MEDS: HYDROcodone/APAP 7.5 MG/325 MG (LORTAB, LORCET PLUS) TABLET PO PRN ×2 (15:11→23:28)
[2016-04-16] MEDS: DEXMEDETOMIDINE 400 MCG/100 ML IV SCH (22:26)
[2016-04-16] MEDS: [UNRECOGNIZED DRUG - OTHER] IV SCH (22:26)
[2016-04-16] MEDS: ATORVASTATIN 20 MG (LIPITOR) TABLET PO SCH (23:28)
[2016-04-17] VITALS (22 sets, daily range): BP systolic 96–135; BP diastolic 55–92
[2016-04-17] MEDS: RT-ALBUTEROL/IPRATROPIUM 3 ML (DUONEB) VIAL INH SCH ×6 (02:24→21:46)
[2016-04-17 04:30] LABS: BASOPHILS % (AUTO) 0 % (0-10); EOSINOPHILS # (AUTO) 0.1 10^3/uL (0.0-0.3); EOSINOPHILS % (AUTO) 1 % (0-10); LYMPHOCYTES # (AUTO) 1.2 X 10^3 (1.0-4.0); LYMPHOCYTES % (AUTO) 12 % (12-44); MEAN CORPUSCULAR HEMOGLOBIN 33 PG (25-34); MEAN CORPUSCULAR HGB CONC 31 G/DL (32-36); MEAN CORPUSCULAR VOLUME 107 FL (80-99); MEAN PLATELET VOLUME 10.8 FL (7.4-10.4); MONOCYTES % (AUTO) 10 % (0-12); NEUTROPHILS # (AUTO) 7.4 X 10^3 (1.8-7.8); NEUTROPHILS % (AUTO) 77 % (42-75); PLATELET COUNT 418 10^3/uL (130-400); RED BLOOD COUNT 2.16 10^6/uL (4.35-5.85); RED CELL DISTRIBUTION WIDTH 11.8 % (10.0-14.5); WHITE BLOOD COUNT 9.6 10^3/uL (4.3-11.0)
[2016-04-17 04:50] LABS: ANION GAP 8 MMOL/L (5-14); BLOOD UREA NITROGEN 20 MG/DL (7-18); BUN/CREATININE RATIO 17; CARBON DIOXIDE 31 MMOL/L (21-32); CHLORIDE 102 MMOL/L (98-107); CREATININE SERUM 1.17 MG/DL (0.60-1.30); GFR ESTIMATED > 60; GLUCOSE 94 MG/DL (70-105); MAGNESIUM 1.3 MG/DL (1.8-2.4); POTASSIUM 3.9 MMOL/L (3.6-5.0); SODIUM 141 MMOL/L (135-145)
[2016-04-17] MEDS: LEVOTHYROXINE 50 MCG (LEVOTHROID) TAB PO SCH (05:08)
[2016-04-17] MEDS: ENOXAPARIN 80 MG/0.8 ML (LOVENOX) SYR SC SCH (05:08)
[2016-04-17] MEDS: KCL 20 MEQ TAB (K-DUR) PO SCH (05:25)
[2016-04-17] MEDS: POTASSIUM CL 10MEQ/50ML IVPB 50 ML IV SCH (05:25)
[2016-04-17] MEDS: MAGNESIUM 1 GM/100 ML IVPB 100 ML IV SCH ×5 (05:36→10:36)
[2016-04-17] MEDS: RT-BUDESONIDE NEBS 0.5 MG/2ML (PULMICORT) AMP INH SCH ×2 (06:29→18:45)
[2016-04-17] MEDS: NYSTATIN ORAL SUSP 5 ML UDC PO SCH ×3 (06:50→19:19)
[2016-04-17] MEDS: THIAMINE 100 MG (VITAMIN B-1) TAB PO SCH (06:50)
[2016-04-17] MEDS: BETHANECHOL 25 MG (URECHOLINE) TAB PO SCH ×4 (06:51→22:36)
[2016-04-17] MEDS: MULTIVIT W/MINERALS TAB (THERAGRAN M) PO SCH (06:51)
[2016-04-17] MEDS: AUGMENTIN 875 MG TAB (AMOXICILLIN/CLAVULANATE) PO SCH ×2 (06:51→19:19)
--- NOTE | 2016-04-17 07:58 | Progress Note (SOAP) ---
Subjective Subjective/Events-last exam patient had a good night. Patient having no complaints this morning. Patient's hemoglobin went up to 7.1. To receive a unit of blood today. Heart rate in sinus rhythm and sinus tach. Patient on nasal oxygen last night did not need a BiPAP Objective Exam Vital Signs Date Time Temp Pulse Resp B/P Pulse Ox O2 Delivery O2 Flow Rate FiO2 04/17/16 07:00 90 04/17/16 06:33 98 3.00 04/17/16 06:29 96 3.00 04/17/16 06:13 94 17 124/74 94 High Flow N/C 3.00 04/17/16 05:00 96 21 97/62 98 High Flow N/C 3.00 04/17/16 04:00 94 16 121/67 97 High Flow N/C 3.00 04/17/16 04:00 98.6 04/17/16 03:00 88 10 100/62 99 High Flow N/C 3.00 04/17/16 02:24 99 3.00 04/17/16 02:00 81 16 96/55 90 High Flow N/C 3.00 04/17/16 01:00 94 04/17/16 01:00 95 15 109/66 98 High Flow N/C 3.00 04/17/16 00:00 98.3 102 25 102/65 100 High Flow N/C 3.00 04/16/16 23:00 95 138/69 96 High Flow N/C 3.00 04/16/16 22:00 101 24 104/55 99 High Flow N/C 3.00 04/16/16 21:19 97 3.00 04/16/16 21:00 99 24 104/62 99 High Flow N/C 3.00 04/16/16 20:00 98.9 101 25 123/67 100 High Flow N/C 3.00 04/16/16 19:00 100 04/16/16 19:00 101 21 84 High Flow N/C 3.00 04/16/16 18:38 98 3.00 04/16/16 18:34 100 4.00 04/16/16 17:00 101 30 128/80 04/16/16 16:00 98.0 04/16/16 14:16 100 4.00 04/16/16 13:00 98 18 111/63 99 Nasal Cannula 6.00 04/16/16 13:00 101 04/16/16 12:00 97.8 04/16/16 11:00 93 28 128/62 93 Nasal Cannula 6.00 04/16/16 10:34 98 4.00 04/16/16 10:00 87 30 118/62 95 Nasal Cannula 6.00 04/16/16 09:00 97 27 121/77 97 Nasal Cannula 6.00 04/16/16 08:00 92 26 118/66 92 Nasal Cannula 6.00 04/16/16 08:00 97.5 I & O 04/17/16 07:00 Intake Total 1640 ml Output Total 1225 ml Balance 415 ml Capillary Refill : General Appearance: No Apparent Distress WD/WN HEENT: Normal ENT Inspection Neck: Full Range of Motion Normal Inspection Respiratory: Chest Non Tender No Accessory Muscle Use No Respiratory Distress Decreased Breath Sounds Cardiovascular: Regular Rate, Rhythm No Murmur Gastrointestinal: non tender Results Lab Laboratory Tests 04/17/16 04:10: Anion Gap 8, BUN/Creatinine Ratio 17, Basophils # (Auto) 0.0, Basophils (%) ( Auto) 0, Blood Urea Nitrogen 20H, Calcium Level 8.0L, Carbon Dioxide Level 31, Chloride Level 102, Creatinine 1.17, Eosinophils # (Auto) 0.1, Eosinophils (%) ( Auto) 1, Estimat Glomerular Filtration Rate > 60, Glucose Level 94, Hematocrit 23L, Hemoglobin 7.1L, Lymphocytes # (Auto) 1.2, Lymphocytes (%) (Auto) 12, Magnesium Level 1.3L, Mean Corpuscular Hemoglobin 33, Mean Corpuscular Hemoglobin Concent 31L, Mean Corpuscular Volume 107H, Mean Platelet Volume 10.8H , Monocytes # (Auto) 1.0, Monocytes (%) (Auto) 10, Neutrophils # (Auto) 7.4, Neutrophils (%) (Auto) 77H, Platelet Count 418H, Potassium Level 3.9, Red Blood Count 2.16L, Red Cell Distribution Width 11.8, Sodium Level 141, White Blood Count 9.6 Assessment/Plan Assessment/Plan Assess & Plan/Chief Complaint acute renal insufficiency. Non-ST elevated [place]. Acute renal failure resolving. Dehydration. COPD. Atrial fibrillation area Postop aspiration pneumonia. Small bowel obstruction with bilateral inguinal hernia. Patient voicing no complaints this morning. Patient states he's feeling better. . 04/17/16. Acute renal insufficiency resolving. Atrial fibrillation patient now in sinus rhythm. Postop aspiration pneumonia. Small bowel obstruction with bilateral inguinal hernia. Anemia hemoglobin down to 7.1 to receive blood. Non-ST elevated [place] Diagnosis/Problems: Clinical Quality Measures DVT/VTE Risk/Contraindication: Risk Factor Score Per Nursin RFS Level Per Nursing on Admit: 4+=Very High BABATUNDE RYDER DO Apr 17, 2016 07:58
[2016-04-17] MEDS ORDERED: diphenhydrAMINE 25 MG TAB (BENADRYL) PO ONE (08:30)
[2016-04-17] MEDS ORDERED: ACETAMINOPHEN 325 MG TABLET/CAPLET (TYLENOL) PO ONE (08:30)
[2016-04-17] MEDS: BISACODYL 10 MG SUPP (DULCOLAX) PR SCH ×2 (09:00→21:00)
--- NOTE | 2016-04-17 09:04 | Diagnostic Imaging Report ---
EXAM: Single view chest. FINDINGS: There is a small left pleural effusion. There is no pneumothorax. The mediastinum is unremarkable. IMPRESSION: Patchy bibasilar subsegmental atelectasis and/or pneumonitis and a small left pleural effusion. Cardiomegaly and mild central pulmonary venous congestion. Dictated by: Dictated on workstation # [id number]
[2016-04-17] MEDS: meTOproloL SUCCINATE 50 MG (TOPROL XL) TAB PO SCH ×2 (09:36→22:38)
[2016-04-17] MEDS: PATCH REMOVAL TP SCH (09:36)
[2016-04-17] MEDS: SPIRONOLACTONE 25 MG (ALDACTONE) TAB PO SCH (09:36)
[2016-04-17] MEDS: CLOPIDOGREL 75 MG (PLAVIX) TABLET PO SCH (09:36)
[2016-04-17] MEDS: PANTOPRAZOLE 40 MG/10 ML (PROTONIX) VIAL IV SCH ×2 (09:36→22:36)
[2016-04-17] MEDS: NICOTINE 21 MG (NICODERM) PATCH TD SCH (09:37)
[2016-04-17] MEDS: FUROSEMIDE 40 MG (LASIX) TAB PO SCH (09:38)
[2016-04-17] MEDS: ASPIRIN E.C. 81 MG (ECOTRIN) TAB PO SCH (09:56)
[2016-04-17] MEDS: KCL 10 MEQ TAB (MICRO K) PO SCH (09:57)
--- NOTE | 2016-04-17 10:03 | Progress Note (SOAP) ---
Subjective Subjective/Events-last exam doing better. still has exertional SOB. tolerating diet and having BM's. Objective Exam Vital Signs Date Time Temp Pulse Resp B/P Pulse Ox O2 Delivery O2 Flow Rate FiO2 04/17/16 07:00 90 04/17/16 06:33 98 3.00 04/17/16 06:29 96 3.00 04/17/16 06:13 94 17 124/74 94 High Flow N/C 3.00 04/17/16 05:00 96 21 97/62 98 High Flow N/C 3.00 04/17/16 04:00 94 16 121/67 97 High Flow N/C 3.00 04/17/16 04:00 98.6 04/17/16 03:00 88 10 100/62 99 High Flow N/C 3.00 04/17/16 02:24 99 3.00 04/17/16 02:00 81 16 96/55 90 High Flow N/C 3.00 04/17/16 01:00 94 04/17/16 01:00 95 15 109/66 98 High Flow N/C 3.00 04/17/16 00:00 98.3 102 25 102/65 100 High Flow N/C 3.00 04/16/16 23:00 95 138/69 96 High Flow N/C 3.00 04/16/16 22:00 101 24 104/55 99 High Flow N/C 3.00 04/16/16 21:19 97 3.00 04/16/16 21:00 99 24 104/62 99 High Flow N/C 3.00 04/16/16 20:00 98.9 101 25 123/67 100 High Flow N/C 3.00 04/16/16 19:00 100 04/16/16 19:00 101 21 84 High Flow N/C 3.00 04/16/16 18:38 98 3.00 04/16/16 18:34 100 4.00 04/16/16 17:00 101 30 128/80 04/16/16 16:00 98.0 04/16/16 14:16 100 4.00 04/16/16 13:00 98 18 111/63 99 Nasal Cannula 6.00 04/16/16 13:00 101 04/16/16 12:00 97.8 04/16/16 11:00 93 28 128/62 93 Nasal Cannula 6.00 04/16/16 10:34 98 4.00 04/16/16 10:00 87 30 118/62 95 Nasal Cannula 6.00 I & O 04/17/16 07:00 Intake Total 1640 ml Output Total 1225 ml Balance 415 ml Capillary Refill : General Appearance: No Apparent Distress HEENT: PERRL/EOMI Neck: Full Range of Motion Respiratory: Chest Non Tender Decreased Breath Sounds Rhonci Cardiovascular: Regular Rate, Rhythm Gastrointestinal: normal bowel sounds non tender soft Extremity: Normal Capillary Refill Neurologic/Psychiatric: Alert Oriented x3 Skin: Normal Color Lymphatic: No Adenopathy Results Lab Laboratory Tests 04/17/16 04:10: Anion Gap 8, BUN/Creatinine Ratio 17, Basophils # (Auto) 0.0, Basophils (%) ( Auto) 0, Blood Urea Nitrogen 20H, Calcium Level 8.0L, Carbon Dioxide Level 31, Chloride Level 102, Creatinine 1.17, Eosinophils # (Auto) 0.1, Eosinophils (%) ( Auto) 1, Estimat Glomerular Filtration Rate > 60, Glucose Level 94, Hematocrit 23L, Hemoglobin 7.1L, Lymphocytes # (Auto) 1.2, Lymphocytes (%) (Auto) 12, Magnesium Level 1.3L, Mean Corpuscular Hemoglobin 33, Mean Corpuscular Hemoglobin Concent 31L, Mean Corpuscular Volume 107H, Mean Platelet Volume 10.8H , Monocytes # (Auto) 1.0, Monocytes (%) (Auto) 10, Neutrophils # (Auto) 7.4, Neutrophils (%) (Auto) 77H, Platelet Count 418H, Potassium Level 3.9, Red Blood Count 2.16L, Red Cell Distribution Width 11.8, Sodium Level 141, White Blood Count 9.6 04/17/16 08:35: B-Type Natriuretic Peptide 582.3H 04/17/16 09:40: Assessment/Plan Assessment/Plan Assess & Plan/Chief Complaint respiratory insufficiency s/p SARAH and SBR. continue aggressive pulmonary support with bipap as needed. ambulate. diet as tolerated. PRBC today for anemia of chronic disease. Diagnosis/Problems: Clinical Quality Measures DVT/VTE Risk/Contraindication: Risk Factor Score Per Nursin RFS Level Per Nursing on Admit: 4+=Very High BRITTANY CHAPA MD Apr 17, 2016 10:02 am
[2016-04-17] MEDS ORDERED: NS IV 500 ML 500 ML ONE (10:24)
[2016-04-17] MEDS: SUCRALFATE 1 GM (CARAFATE) TAB PO SCH ×3 (11:29→22:38)
--- NOTE | 2016-04-17 12:17 | Cardiology Progress Note ---
Cardiology SOAP Progress Note Subjective: slightly improved as far as shortness of breath is concerned. No chest pain Objective: I&O/Vital Signs Vital Sign - Last 12Hours 04/17/16 04/17/16 04/17/16 04/17/16 10:29 10:30 10:45 11:00 Temp 98.0 98.2 Pulse 96 98 98 Resp B/P 117/68 112/58 112/58 Pulse Ox 97 96 98 98 O2 Delivery High Flow N/C O2 Flow Rate 3.00 3.00 3.00 3.00 04/17/16 04/17/16 04/17/16 04/17/16 12:39 13:00 13:00 13:15 Temp 99.0 Pulse 92 101 95 100 Resp B/P 101/92 123/69 123/69 Pulse Ox 100 95 99 O2 Delivery High Flow N/C High Flow N/C O2 Flow Rate 3.00 3.00 3.00 04/17/16 04/17/16 04/17/16 04/17/16 14:00 15:12 16:00 17:45 Temp 99.0 98.5 98.2 Pulse 98 98 98 Resp B/P 106/64 114/60 114/67 Pulse Ox 98 95 98 93 O2 Delivery Nasal Cannula Nasal Cannula Nasal Cannula O2 Flow Rate 3.00 2.50 3.00 3.00 04/17/16 04/17/16 04/17/16 04/17/16 18:00 18:45 18:49 19:00 Pulse 98 96 Resp 29 B/P 129/76 Pulse Ox 98 98 O2 Delivery Nasal Cannula O2 Flow Rate 3.00 2.00 2.00 04/17/16 04/17/16 20:00 21:47 Temp 99.2 Pulse 92 Resp 22 B/P 119/71 Pulse Ox 100 95 O2 Delivery Nasal Cannula O2 Flow Rate 3.00 2.00 Intake and Output 04/17/16 00:00 Intake Total 940 ml Output Total 400 ml Balance 540 ml Weight (Pounds): 178 Weight (Ounces): 8.0 Weight (Calculated Kilograms): 80.867858 Constitutional: No appears stated age, No AAO x 3, No apparent distress, No PERRL, No well-developed, No well-nourished, No other Respiratory: No accessory muscle use, No respiratory distress, No chest tender , No chest expansion is symmetric, No chest is bilaterally symmetric, No lungs clear to percussion, No lungs clear to auscultation, cracklesNo rhonchi, No rales, No stridor, No wheezing, No pleural rub, No other Cardiovascular: No regular rate-rhythm, No irregularly irregular, No extra beats, No parasternal heave is noted, No JVD, No edema, No bradycardia, No tachycardia, No point of maximal impulse, No cardiac thrills are palpable, No S1 and S2, No gallop/S3, No gallop/S4, No diastolic murmur, No systolic murmur, No friction rub, No click, No other Gastrointestional: No tender, No soft, No round, No distended, No pulsatile mass, No organomegaly, No guarding, No rebound, No tenderness, No hernia, No mass, No audible bowel sounds, No abnormal bowel sounds, No abdominal bruits, No spleenomegaly, No other Extremities: No normal range of motion, No non-tender, No normal inspection, No pedal edema, No calf tenderness, No normal capillary refill, No pelvis stable , No calf tenderness, No inflammation, No pedal edema, No slow capillary refill , No swelling, No other, No abrasion, No clubbing, No cyanosis, No ecchymosis, No laceration, No no lower extremity edema bilateral, No significant edema, No tenderness, No wound Neurologic/Psychiatric: No bean snapper II-XII nml as tested, No no motor/sensory deficits, No alert, No normal mood/affect, No oriented x 3, No abnormal cerebellar tests, No abnormal bean snapper II-XII, No abnormal gait, No aphasia, No EOM palsy, No facial droop, No motor weakness, No sensory deficit, No depressed affect, No disoriented x 3, No other, No grossly intact, No power is 5/5 both on sides Skin: No normal color, No warm/dry, No cyanosis, No cool, No diaphoresis, No damp, No ecchymosis, No jaundice, No mottled, No pallor, No rash, No tattoos/ piercings, No ulcerations, No rash on exposed areas, No ulcerations on exposed areas, No other Results/Procedures: Labs Laboratory Tests 04/17/16 04:10: Anion Gap 8, BUN/Creatinine Ratio 17, Basophils # (Auto) 0.0, Basophils (%) ( Auto) 0, Blood Urea Nitrogen 20H, Calcium Level 8.0L, Carbon Dioxide Level 31, Chloride Level 102, Creatinine 1.17, Eosinophils # (Auto) 0.1, Eosinophils (%) ( Auto) 1, Estimat Glomerular Filtration Rate > 60, Glucose Level 94, Hematocrit 23L, Hemoglobin 7.1L, Lymphocytes # (Auto) 1.2, Lymphocytes (%) (Auto) 12, Magnesium Level 1.3L, Mean Corpuscular Hemoglobin 33, Mean Corpuscular Hemoglobin Concent 31L, Mean Corpuscular Volume 107H, Mean Platelet Volume 10.8H , Monocytes # (Auto) 1.0, Monocytes (%) (Auto) 10, Neutrophils # (Auto) 7.4, Neutrophils (%) (Auto) 77H, Platelet Count 418H, Potassium Level 3.9, Red Blood Count 2.16L, Red Cell Distribution Width 11.8, Sodium Level 141, White Blood Count 9.6 04/17/16 08:35: B-Type Natriuretic Peptide 582.3H 04/17/16 09:40: Stool Occult Blood Immunoassay POSITIVEH 04/17/16 16:20: Basophils # (Auto) 0.1, Basophils (%) (Auto) 1, Eosinophils # (Auto) 0.1, Eosinophils (%) (Auto) 1, Hematocrit 26L, Hemoglobin 8.4L, Lymphocytes # (Auto) 1.0, Lymphocytes (%) (Auto) 9L, Mean Corpuscular Hemoglobin 33, Mean Corpuscular Hemoglobin Concent 32, Mean Corpuscular Volume 103H, Mean Platelet Volume 10.6H, Monocytes # (Auto) 0.9, Monocytes (%) (Auto) 9, Neutrophils # ( Auto) 8.7H, Neutrophils (%) (Auto) 81H, Platelet Count 436H, Red Blood Count 2.57L, Red Cell Distribution Width 13.9, White Blood Count 10.8 A/P: Assessment/Dx: 1. Acute respiratory distress. 2. Atrial fibrillation. 3. Acute diastolic congestive heart failure. 4. Non-ST elevation [place]. Plan: 1. Acute respiratory distress - likely combination of COPD, aspiration pneumonia, acute diastolic heart failure. Defer management of respiratory pathology to Dr. Sanchez and Dr. Mcdaniel. 2. Atrial fibrillation: currently in sinus tachycardia. metoprolol dose increased yesterday. 3. Acute diastolic congestive heart failure: normal EF and elevated BNP. Lasix 40 mg IV. improved with lasix. 4. Non-ST elevation [place]: Plavix and Lovenox. Continue aspirin. Add Lipitor. may require a stress test before discharge. LMWH x 48 hours. convert to DVT prophylaxis dose. 5. Elevated creatinine: Needs to see a central services tech. 6. possible left atrial thrombus: Full anticoagulation with Lovenox is recommended. DIAN may be recommended when more stable pulmonary mo. Thank you for your consultation. Please call me if you have any questions. Lisette Marcelo MD, FACP, FACC, FSCAI, FHRS, CCDS Interventional Cardiology Cardiac Electrophysiology Vascular Medicine and Endovascular Interventions Whitney MARCELO MD Apr 17, 2016 12:17
[2016-04-17 16:29] LABS: BASOPHILS # (AUTO) 0.1 10^3/uL (0.0-0.1); BASOPHILS % (AUTO) 1 % (0-10); EOSINOPHILS # (AUTO) 0.1 10^3/uL (0.0-0.3); EOSINOPHILS % (AUTO) 1 % (0-10); LYMPHOCYTES % (AUTO) 9 % (12-44); MEAN CORPUSCULAR HEMOGLOBIN 33 PG (25-34); MEAN CORPUSCULAR HGB CONC 32 G/DL (32-36); MEAN CORPUSCULAR VOLUME 103 FL (80-99); MEAN PLATELET VOLUME 10.6 FL (7.4-10.4); MONOCYTES # (AUTO) 0.9 X 10^3 (0.0-1.0); MONOCYTES % (AUTO) 9 % (0-12); NEUTROPHILS # (AUTO) 8.7 X 10^3 (1.8-7.8); NEUTROPHILS % (AUTO) 81 % (42-75); PLATELET COUNT 436 10^3/uL (130-400); RED BLOOD COUNT 2.57 10^6/uL (4.35-5.85); RED CELL DISTRIBUTION WIDTH 13.9 % (10.0-14.5); WHITE BLOOD COUNT 10.8 10^3/uL (4.3-11.0)
[2016-04-17] MEDS: [UNRECOGNIZED DRUG - OTHER] IV SCH (21:30)
[2016-04-17] MEDS: DEXMEDETOMIDINE 400 MCG/100 ML IV SCH (21:30)
[2016-04-17] MEDS: ATORVASTATIN 20 MG (LIPITOR) TABLET PO SCH (22:36)
[2016-04-17] MEDS: HYDROcodone/APAP 7.5 MG/325 MG (LORTAB, LORCET PLUS) TABLET PO PRN (22:36)
[2016-04-18] VITALS (10 sets, daily range): BP systolic 101–154; BP diastolic 60–79
[2016-04-18] MEDS: NYSTATIN ORAL SUSP 5 ML UDC PO SCH ×5 (00:32→23:44)
[2016-04-18] MEDS: RT-ALBUTEROL/IPRATROPIUM 3 ML (DUONEB) VIAL INH SCH ×6 (01:59→22:54)
[2016-04-18 04:51] LABS: BASOPHILS % (AUTO) 0 % (0-10); EOSINOPHILS # (AUTO) 0.3 10^3/uL (0.0-0.3); EOSINOPHILS % (AUTO) 3 % (0-10); LYMPHOCYTES # (AUTO) 1.2 X 10^3 (1.0-4.0); LYMPHOCYTES % (AUTO) 11 % (12-44); MEAN CORPUSCULAR HEMOGLOBIN 32 PG (25-34); MEAN CORPUSCULAR HGB CONC 31 G/DL (32-36); MEAN CORPUSCULAR VOLUME 102 FL (80-99); MEAN PLATELET VOLUME 10.5 FL (7.4-10.4); MONOCYTES # (AUTO) 1.2 X 10^3 (0.0-1.0); MONOCYTES % (AUTO) 11 % (0-12); NEUTROPHILS # (AUTO) 7.7 X 10^3 (1.8-7.8); NEUTROPHILS % (AUTO) 74 % (42-75); PLATELET COUNT 467 10^3/uL (130-400); RED CELL DISTRIBUTION WIDTH 13.7 % (10.0-14.5); WHITE BLOOD COUNT 10.5 10^3/uL (4.3-11.0)
[2016-04-18 05:12] LABS: ANION GAP 11 MMOL/L (5-14); BLOOD UREA NITROGEN 15 MG/DL (7-18); BUN/CREATININE RATIO 15; CALCIUM 8.2 MG/DL (8.5-10.1); CARBON DIOXIDE 29 MMOL/L (21-32); CHLORIDE 101 MMOL/L (98-107); CREATININE SERUM 1.02 MG/DL (0.60-1.30); GFR ESTIMATED > 60; GLUCOSE 87 MG/DL (70-105); MAGNESIUM 1.5 MG/DL (1.8-2.4); PHOSPHORUS 2.5 MG/DL (2.3-4.7); SODIUM 141 MMOL/L (135-145)
[2016-04-18] MEDS: LEVOTHYROXINE 50 MCG (LEVOTHROID) TAB PO SCH (06:03)
[2016-04-18] MEDS: SUCRALFATE 1 GM (CARAFATE) TAB PO SCH ×4 (06:03→20:27)
[2016-04-18] MEDS: RT-BUDESONIDE NEBS 0.5 MG/2ML (PULMICORT) AMP INH SCH ×2 (06:58→18:48)
--- NOTE | 2016-04-18 06:58 | Pulmonary Progress Note ---
Subjective Subjective/Events-last exam Pt is doing much better and wants to go home. Exam Exam Vital Signs Date Time Temp Pulse Resp B/P Pulse Ox O2 Delivery O2 Flow Rate FiO2 04/18/16 06:00 99 22 129/74 93 Nasal Cannula 3.00 04/18/16 05:00 97 26 132/70 96 Nasal Cannula 3.00 04/18/16 04:00 90 24 108/65 96 Nasal Cannula 3.00 04/18/16 03:00 98 20 101/67 100 Nasal Cannula 3.00 04/18/16 02:00 96 25 115/73 98 Nasal Cannula 3.00 04/18/16 01:59 98 2.00 04/18/16 01:00 96 28 113/64 96 Nasal Cannula 3.00 04/18/16 01:00 94 04/18/16 00:00 96 25 141/79 97 Nasal Cannula 3.00 04/17/16 23:00 99 27 135/81 96 Nasal Cannula 3.00 04/17/16 21:47 95 2.00 04/17/16 20:00 99.2 92 22 119/71 100 Nasal Cannula 3.00 04/17/16 19:00 96 04/17/16 18:49 2.00 04/17/16 18:45 98 2.00 04/17/16 18:00 98 29 129/76 98 Nasal Cannula 3.00 04/17/16 17:45 98.2 98 26 114/67 93 Nasal Cannula 3.00 04/17/16 16:00 98.5 98 28 114/60 98 Nasal Cannula 3.00 04/17/16 15:12 95 2.50 04/17/16 14:00 99.0 98 26 106/64 98 Nasal Cannula 3.00 04/17/16 13:15 99.0 100 24 123/69 99 3.00 04/17/16 13:00 95 26 123/69 95 High Flow N/C 3.00 04/17/16 13:00 101 04/17/16 12:39 92 21 101/92 100 High Flow N/C 3.00 04/17/16 11:00 98 24 112/58 98 High Flow N/C 3.00 04/17/16 10:45 98.2 98 21 112/58 98 3.00 04/17/16 10:30 96 3.00 04/17/16 10:29 98.0 96 23 117/68 97 3.00 04/17/16 10:00 104 24 117/68 97 High Flow N/C 3.00 04/17/16 09:00 103 26 115/89 97 High Flow N/C 3.00 04/17/16 07:00 90 04/17/16 07:00 98.5 101 26 116/89 97 High Flow N/C 3.00 I & O 04/18/16 07:00 Intake Total 950 ml Output Total 500 ml Balance 450 ml General Appearance: No Apparent Distress HEENT: PERRL/EOMI Neck: Full Range of Motion Respiratory: Chest Non Tender Decreased Breath Sounds Rhonci Cardiovascular: Regular Rate, Rhythm Gastrointestinal: normal bowel sounds non tender soft Extremity: Normal Capillary Refill Neurologic/Psychiatric: Alert Oriented x3 Skin: Normal Color Lymphatic: No Adenopathy Results Lab Laboratory Tests 04/17/16 04:10 04/17/16 16:20 04/17/16 22:58 04/18/16 04:40 Assessment/Plan Assessment/Plan Acute respiratory failure with aspiration - improving -PT is on Augmentin now -SVN's Q4 metabolic encephalopathy - improved -monitor NSTEMI Small bowel obstruction s/p ex lap Inguinal hernia bilateral Acute renal failure/dehydration -IVF Clinical Quality Measures DVT/VTE Risk/Contraindication: Risk Factor Score Per Nursin RFS Level Per Nursing on Admit: 4+=Very High GRETCHEN OLSEN DO Apr 18, 2016 06:58
[2016-04-18] MEDS: POTASSIUM CL 10MEQ/50ML IVPB 50 ML IV SCH (07:06)
[2016-04-18] MEDS: KCL 20 MEQ TAB (K-DUR) PO SCH (07:06)
[2016-04-18] MEDS: AUGMENTIN 875 MG TAB (AMOXICILLIN/CLAVULANATE) PO SCH ×2 (07:07→16:13)
[2016-04-18] MEDS: THIAMINE 100 MG (VITAMIN B-1) TAB PO SCH (07:07)
[2016-04-18] MEDS: BETHANECHOL 25 MG (URECHOLINE) TAB PO SCH ×4 (07:07→20:27)
[2016-04-18] MEDS: HYDROcodone/APAP 7.5 MG/325 MG (LORTAB, LORCET PLUS) TABLET PO PRN ×3 (07:08→21:12)
[2016-04-18] MEDS: MULTIVIT W/MINERALS TAB (THERAGRAN M) PO SCH (07:08)
[2016-04-18] MEDS ORDERED: FUROSEMIDE 40 MG (LASIX) TAB PO NR (08:00)
[2016-04-18] MEDS: meTOproloL SUCCINATE 50 MG (TOPROL XL) TAB PO SCH ×2 (08:44→20:27)
[2016-04-18] MEDS: SPIRONOLACTONE 25 MG (ALDACTONE) TAB PO SCH (08:45)
[2016-04-18] MEDS: MAGNESIUM 1 GM/100 ML IVPB 200 ML IV SCH (08:45)
[2016-04-18] MEDS: CLOPIDOGREL 75 MG (PLAVIX) TABLET PO SCH (08:45)
[2016-04-18] MEDS: PANTOPRAZOLE 40 MG/10 ML (PROTONIX) VIAL IV SCH ×2 (08:46→20:26)
[2016-04-18] MEDS: diphenhydrAMINE 50 MG/ML INJ (BENADRYL) IVP SCH (08:46)
[2016-04-18] MEDS: PATCH REMOVAL TP SCH (08:59)
[2016-04-18] MEDS ORDERED: ENOXAPARIN 40 MG/0.4 ML (LOVENOX) SYR SC SCH (09:00)
[2016-04-18] MEDS: BISACODYL 10 MG SUPP (DULCOLAX) PR SCH ×2 (09:00→20:26)
[2016-04-18] MEDS ORDERED: MAGNESIUM 1 GM/100 ML IVPB 200 ML IV SCH (09:00)
--- NOTE | 2016-04-18 09:08 | Diagnostic Imaging Report ---
EXAMINATION: Portable upright radiograph of the chest. INDICATION: Shortness of breath. FINDINGS: When compared to 04/17/2016, there is no significant change in the small left pleural effusion and associated bibasilar mild atelectasis or infiltrate. The heart size is near the upper limits of normal. There is minimal interstitial prominence, likely related to an element of vascular congestion. No pneumothorax. The central lines from left arm and left subclavian approach terminate at the mid SVC level. Cervical spine fusion hardware and sternotomy wires are seen. IMPRESSION: Stable small left pleural effusion and minimal bibasilar infiltrates or atelectasis. Minimal pulmonary vascular congestion. Dictated by: Dictated on workstation # [id number]
[2016-04-18] MEDS: NICOTINE 21 MG (NICODERM) PATCH TD SCH (09:09)
--- NOTE | 2016-04-18 10:43 | Physical Therapy Daily Note ---
PT Daily Note-Current Subjective Patient is voices frustration with hospital stay. Pain Numeric Pain Scale: 5-Moderate Pain Location: Lower Location Body Site: Abdomen Pain Description: Pressure Mental Status Patient Orientation: Normal For Age Attachments: Oxygen, Helms Catheter Transfers Functional [place] Measure 0=Not Assessed/NA 4=Minimal Assistance 1=Total Assistance 5=Supervision or Setup 2=Maximal Assistance 6=Modified [place] 3=Moderate Assistance 7=Complete IndependenceIRFPAI Quality Coding Scale 6 Independent with activity with or without an assistive device 5 Patient requires set up or clean up by helper. Patient completes activity by themselves 4 Supervision or touching assist (CGA). [place] provide cues , steadying assist 3 The helper provides less than half the effort to complete the activity 2 The helper provides more than half the effort to complete the activity 1 Dependent. The helper does all the effort to complete an activity 7 Patient refused to complete or attempt activity 9 The patient did not perform the activity before the current illness or injury 88 Not attempted due to Medical conditions or safety concerns Transfers (B, C, W/C) (FIM): 4 Scootin Rollin Supine to/from Sit: 4 Sit to/from Stand: 5 Bed to/from Chair: 5 CGA for safety Gait Training Gait (FIM): 2 Distance (FIM): 0=770-76 ft Distance: 75' x 2 Gait Level of Assist: 4 Gait Persons Needed: 1 Gait Assistive Device: FWW slightly ataxic; CGA for safety Treatments Patient requires recovery period due to c/o of dizziness with ambulation Assessment Patient is very adamant about returning to home [place]. PT to increase activity as tolerated by patient. PT Short Term Goals Short Term Goals Time Frame: Apr 23, 2016 Transfers (B,C,W/C) (FIM): 6 PT Him Clerk Goals Him Clerk Goals PT Senior Living Goals Time Frame: Apr 30, 2016 Transfers (B,C,W/C) (FIM): 6 Gait (FIM): 6 Gait distance (FIM): 3=150 ft Distance: 150 Gait Level of Assist: 6 Gait Assistive Device: FWW Stairs (FIM): 5 # of Steps: 4 Stairs Level Of Assist: 6 PT Plan Treatment/Plan Treatment Plan: Continue Plan of Care Treatment Plan: Bed Mobility, Education, Functional Activity Kris, Functional Strength, Gait, Safety, Therapeutic Exercise, Transfers Treatment Duration: Apr 30, 2016 Visits Per Week: 5-6 Time/GCodes Time In: 1010 Time Out: 1033 Total Billed Treatment Time: 23 Total Billed Treatment 1 visit FA x 2 23 min JESS LAZCANO PT Apr 18, 2016 10:43
--- NOTE | 2016-04-18 14:45 | Cardiology Progress Note ---
Cardiology SOAP Progress Note Subjective: Improved from yesterday Objective: I&O/Vital Signs Vital Sign - Last 12Hours 04/18/16 04/18/16 04/18/16 04/18/16 03:00 04:00 05:00 06:00 Pulse 98 90 97 99 Resp 20 24 26 22 B/P 101/67 108/65 132/70 129/74 Pulse Ox 100 96 96 93 O2 Delivery Nasal Cannula Nasal Cannula Nasal Cannula Nasal Cannula O2 Flow Rate 3.00 3.00 3.00 3.00 04/18/16 04/18/16 04/18/16 04/18/16 06:56 07:00 07:02 09:10 Temp 98.1 Pulse 103 Pulse Ox 94 96 O2 Flow Rate 2.00 2.00 04/18/16 04/18/16 10:47 13:11 Temp 98.1 Pulse 94 Resp 20 B/P 116/60 Pulse Ox 90 94 O2 Delivery Nasal Cannula O2 Flow Rate 2.00 3.00 Intake and Output 04/18/16 00:00 Intake Total 990 ml Output Total 2000 ml Balance -1010 ml Weight (Pounds): 173 Weight (Ounces): 8.0 Weight (Calculated Kilograms): 78.234979 Constitutional: No appears stated age, No AAO x 3, No apparent distress, No PERRL, No well-developed, No well-nourished, No other Respiratory: No accessory muscle use, No respiratory distress, No chest tender , No chest expansion is symmetric, No chest is bilaterally symmetric, No lungs clear to percussion, No lungs clear to auscultation, cracklesNo rhonchi, No rales, No stridor, No wheezing, No pleural rub, No other Cardiovascular: No regular rate-rhythm, No irregularly irregular, No extra beats, No parasternal heave is noted, No JVD, No edema, No bradycardia, No tachycardia, No point of maximal impulse, No cardiac thrills are palpable, No S1 and S2, No gallop/S3, No gallop/S4, No diastolic murmur, No systolic murmur, No friction rub, No click, No other Gastrointestional: No tender, No soft, No round, No distended, No pulsatile mass, No organomegaly, No guarding, No rebound, No tenderness, No hernia, No mass, No audible bowel sounds, No abnormal bowel sounds, No abdominal bruits, No spleenomegaly, No other Extremities: No normal range of motion, No non-tender, No normal inspection, No pedal edema, No calf tenderness, No normal capillary refill, No pelvis stable , No calf tenderness, No inflammation, No pedal edema, No slow capillary refill , No swelling, No other, No abrasion, No clubbing, No cyanosis, No ecchymosis, No laceration, No no lower extremity edema bilateral, No significant edema, No tenderness, No wound Neurologic/Psychiatric: No environmental services manager II-XII nml as tested, No no motor/sensory deficits, No alert, No normal mood/affect, No oriented x 3, No abnormal cerebellar tests, No abnormal environmental services manager II-XII, No abnormal gait, No aphasia, No EOM palsy, No facial droop, No motor weakness, No sensory deficit, No depressed affect, No disoriented x 3, No other, No grossly intact, No power is 5/5 both on sides Skin: No normal color, No warm/dry, No cyanosis, No cool, No diaphoresis, No damp, No ecchymosis, No jaundice, No mottled, No pallor, No rash, No tattoos/ piercings, No ulcerations, No rash on exposed areas, No ulcerations on exposed areas, No other Results/Procedures: Labs Laboratory Tests 04/17/16 16:20: Basophils # (Auto) 0.1, Basophils (%) (Auto) 1, Eosinophils # (Auto) 0.1, Eosinophils (%) (Auto) 1, Hematocrit 26L, Hemoglobin 8.4L, Lymphocytes # (Auto) 1.0, Lymphocytes (%) (Auto) 9L, Mean Corpuscular Hemoglobin 33, Mean Corpuscular Hemoglobin Concent 32, Mean Corpuscular Volume 103H, Mean Platelet Volume 10.6H, Monocytes # (Auto) 0.9, Monocytes (%) (Auto) 9, Neutrophils # ( Auto) 8.7H, Neutrophils (%) (Auto) 81H, Platelet Count 436H, Red Blood Count 2.57L, Red Cell Distribution Width 13.9, White Blood Count 10.8 04/17/16 22:58: Hematocrit 26L, Hemoglobin 8.2L 04/18/16 04:40: Basophils # (Auto) 0.0, Basophils (%) (Auto) 0, Eosinophils # (Auto) 0.3, Eosinophils (%) (Auto) 3, Hematocrit 27L, Hemoglobin 8.3L, Lymphocytes # (Auto) 1.2, Lymphocytes (%) (Auto) 11L, Mean Corpuscular Hemoglobin 32, Mean Corpuscular Hemoglobin Concent 31L, Mean Corpuscular Volume 102H, Mean Platelet Volume 10.5H, Monocytes # (Auto) 1.2H, Monocytes (%) (Auto) 11, Neutrophils # ( Auto) 7.7, Neutrophils (%) (Auto) 74, Platelet Count 467H, Red Blood Count 2.60L , Red Cell Distribution Width 13.7, White Blood Count 10.5, Anion Gap 11, BUN/ Creatinine Ratio 15, Blood Urea Nitrogen 15, Calcium Level 8.2L, Carbon Dioxide Level 29, Chloride Level 101, Creatinine 1.02, Estimat Glomerular Filtration Rate > 60, Glucose Level 87, Magnesium Level 1.5L, Phosphorus Level 2.5, Potassium Level 4.0, Sodium Level 141 04/18/16 13:37: Lab Scanned Report Transfusion Reaction Form A/P: Assessment/Dx: 1. Acute respiratory distress. 2. Atrial fibrillation. 3. Acute diastolic congestive heart failure. 4. Non-ST elevation [place]. Plan: 1. Acute respiratory distress - likely combination of COPD, aspiration pneumonia, acute diastolic heart failure. Defer management of respiratory pathology to Dr. Sanchez and Dr. Mcdaniel. Much improved now. 2. Atrial fibrillation: currently in sinus tachycardia. On metoprolol. 3. Acute diastolic congestive heart failure: normal EF and elevated BNP. Lasix 40 mg IV -> will start outpatient dose of Lasix from tomorrow. improved with lasix. 4. Non-ST elevation [place]: Plavix and Lovenox. Continue aspirin. Add Lipitor. may require a stress test before discharge. LMWH x 48 hours. convert to DVT prophylaxis dose. 5. Elevated creatinine: Needs to see a subway repair supervisor. 6. possible left atrial thrombus: Full anticoagulation with Lovenox is recommended. DIAN may be recommended when more stable pulmonary mo. Defer to Dr. Juárez. Thank you for your consultation. Please call me if you have any questions. Lisette Marcelo MD, FACP, FACC, FSCAI, FHRS, CCDS Interventional Cardiology Cardiac Electrophysiology Vascular Medicine and Endovascular Interventions Whitney MARCELO MD Apr 18, 2016 14:45
--- NOTE | 2016-04-18 15:28 | Progress Note (SOAP) ---
Subjective Subjective/Events-last exam doing ok. tolerating diet and having BM's. breathing status slowly improving. Objective Exam Vital Signs Date Time Temp Pulse Resp B/P Pulse Ox O2 Delivery O2 Flow Rate FiO2 04/18/16 14:55 91 2.00 04/18/16 13:11 98.1 94 20 116/60 94 Nasal Cannula 3.00 04/18/16 12:30 91 3.00 04/18/16 10:47 90 2.00 04/18/16 09:10 98.1 04/18/16 07:02 96 2.00 04/18/16 07:00 103 04/18/16 06:56 94 2.00 04/18/16 06:00 99 22 129/74 93 Nasal Cannula 3.00 04/18/16 05:00 97 26 132/70 96 Nasal Cannula 3.00 04/18/16 04:00 90 24 108/65 96 Nasal Cannula 3.00 04/18/16 03:00 98 20 101/67 100 Nasal Cannula 3.00 04/18/16 02:00 96 25 115/73 98 Nasal Cannula 3.00 04/18/16 01:59 98 2.00 04/18/16 01:00 96 28 113/64 96 Nasal Cannula 3.00 04/18/16 01:00 94 04/18/16 00:00 96 25 141/79 97 Nasal Cannula 3.00 04/17/16 23:00 99 27 135/81 96 Nasal Cannula 3.00 04/17/16 21:47 95 2.00 04/17/16 20:00 99.2 92 22 119/71 100 Nasal Cannula 3.00 04/17/16 19:00 96 04/17/16 18:49 2.00 04/17/16 18:45 98 2.00 04/17/16 18:00 98 29 129/76 98 Nasal Cannula 3.00 04/17/16 17:45 98.2 98 26 114/67 93 Nasal Cannula 3.00 04/17/16 16:00 98.5 98 28 114/60 98 Nasal Cannula 3.00 I & O 04/18/16 07:00 Intake Total 2030 ml Output Total 3350 ml Balance -1320 ml Capillary Refill : General Appearance: No Apparent Distress HEENT: PERRL/EOMI Neck: Full Range of Motion Respiratory: Chest Non Tender Decreased Breath Sounds Rhonci Cardiovascular: Regular Rate, Rhythm Gastrointestinal: normal bowel sounds soft Extremity: Normal Capillary Refill Neurologic/Psychiatric: Alert Oriented x3 Skin: Normal Color Lymphatic: No Adenopathy Results Lab Laboratory Tests 04/17/16 16:20: Basophils # (Auto) 0.1, Basophils (%) (Auto) 1, Eosinophils # (Auto) 0.1, Eosinophils (%) (Auto) 1, Hematocrit 26L, Hemoglobin 8.4L, Lymphocytes # (Auto) 1.0, Lymphocytes (%) (Auto) 9L, Mean Corpuscular Hemoglobin 33, Mean Corpuscular Hemoglobin Concent 32, Mean Corpuscular Volume 103H, Mean Platelet Volume 10.6H, Monocytes # (Auto) 0.9, Monocytes (%) (Auto) 9, Neutrophils # ( Auto) 8.7H, Neutrophils (%) (Auto) 81H, Platelet Count 436H, Red Blood Count 2.57L, Red Cell Distribution Width 13.9, White Blood Count 10.8 04/17/16 22:58: Hematocrit 26L, Hemoglobin 8.2L 04/18/16 04:40: Basophils # (Auto) 0.0, Basophils (%) (Auto) 0, Eosinophils # (Auto) 0.3, Eosinophils (%) (Auto) 3, Hematocrit 27L, Hemoglobin 8.3L, Lymphocytes # (Auto) 1.2, Lymphocytes (%) (Auto) 11L, Mean Corpuscular Hemoglobin 32, Mean Corpuscular Hemoglobin Concent 31L, Mean Corpuscular Volume 102H, Mean Platelet Volume 10.5H, Monocytes # (Auto) 1.2H, Monocytes (%) (Auto) 11, Neutrophils # ( Auto) 7.7, Neutrophils (%) (Auto) 74, Platelet Count 467H, Red Blood Count 2.60L , Red Cell Distribution Width 13.7, White Blood Count 10.5, Anion Gap 11, BUN/ Creatinine Ratio 15, Blood Urea Nitrogen 15, Calcium Level 8.2L, Carbon Dioxide Level 29, Chloride Level 101, Creatinine 1.02, Estimat Glomerular Filtration Rate > 60, Glucose Level 87, Magnesium Level 1.5L, Phosphorus Level 2.5, Potassium Level 4.0, Sodium Level 141 04/18/16 13:37: Lab Scanned Report Transfusion Reaction Form Assessment/Plan Assessment/Plan Assess & Plan/Chief Complaint respiratory insufficiency s/p SARAH and SBR. continue aggressive pulmonary support with bipap as needed. ambulate. diet as tolerated. being transferred to floor. Diagnosis/Problems: Clinical Quality Measures DVT/VTE Risk/Contraindication: Risk Factor Score Per Nursin RFS Level Per Nursing on Admit: 4+=Very High BRITTANY CHAPA MD Apr 18, 2016 15:28
--- NOTE | 2016-04-18 18:58 | Progress Note (SOAP) ---
Subjective Subjective/Events-last exam Fwup small bowel obstruction--S/P exploratory lab with small bowel resection and reanastamosis, acute renal failure--worsened since surgery, dehydration, COPD, Atrial fibrillation with RVR, Post-op VDRF with aspiration pneumonia, NSTEMI. Patient agitated today about getting out of the hospital and still having ortiz catheter. Objective Exam Vital Signs Date Time Temp Pulse Resp B/P Pulse Ox O2 Delivery O2 Flow Rate FiO2 04/18/16 18:48 4.00 04/18/16 18:48 89 2.00 04/18/16 16:12 98.5 91 19 118/71 93 Nasal Cannula 3.00 04/18/16 14:55 91 2.00 04/18/16 13:11 98.1 94 20 116/60 94 Nasal Cannula 3.00 04/18/16 12:30 91 3.00 04/18/16 10:47 90 2.00 04/18/16 09:10 98.1 04/18/16 07:02 96 2.00 04/18/16 07:00 103 04/18/16 06:56 94 2.00 04/18/16 06:00 99 22 129/74 93 Nasal Cannula 3.00 04/18/16 05:00 97 26 132/70 96 Nasal Cannula 3.00 04/18/16 04:00 90 24 108/65 96 Nasal Cannula 3.00 04/18/16 03:00 98 20 101/67 100 Nasal Cannula 3.00 04/18/16 02:00 96 25 115/73 98 Nasal Cannula 3.00 04/18/16 01:59 98 2.00 04/18/16 01:00 96 28 113/64 96 Nasal Cannula 3.00 04/18/16 01:00 94 04/18/16 00:00 96 25 141/79 97 Nasal Cannula 3.00 04/17/16 23:00 99 27 135/81 96 Nasal Cannula 3.00 04/17/16 21:47 95 2.00 04/17/16 20:00 99.2 92 22 119/71 100 Nasal Cannula 3.00 04/17/16 19:00 96 I & O 04/18/16 07:00 Intake Total 2030 ml Output Total 3350 ml Balance -1320 ml Capillary Refill : General Appearance: No Apparent Distress Respiratory: Lungs Clear Decreased Breath Sounds Cardiovascular: Regular Rate, Rhythm Systolic Murmur Gastrointestinal: normal bowel sounds non tender soft Extremity: Non Tender No Calf Tenderness No Pedal Edema Neurologic/Psychiatric: Alert Oriented x3 Results Lab Laboratory Tests 04/17/16 22:58: Hematocrit 26L, Hemoglobin 8.2L 04/18/16 04:40: Hematocrit 27L, Hemoglobin 8.3L, Anion Gap 11, BUN/Creatinine Ratio 15, Basophils # (Auto) 0.0, Basophils (%) (Auto) 0, Blood Urea Nitrogen 15, Calcium Level 8.2L, Carbon Dioxide Level 29, Chloride Level 101, Creatinine 1.02, Eosinophils # (Auto) 0.3, Eosinophils (%) (Auto) 3, Estimat Glomerular Filtration Rate > 60, Glucose Level 87, Lymphocytes # (Auto) 1.2, Lymphocytes (% ) (Auto) 11L, Magnesium Level 1.5L, Mean Corpuscular Hemoglobin 32, Mean Corpuscular Hemoglobin Concent 31L, Mean Corpuscular Volume 102H, Mean Platelet Volume 10.5H, Monocytes # (Auto) 1.2H, Monocytes (%) (Auto) 11, Neutrophils # ( Auto) 7.7, Neutrophils (%) (Auto) 74, Phosphorus Level 2.5, Platelet Count 467H , Potassium Level 4.0, Red Blood Count 2.60L, Red Cell Distribution Width 13.7, Sodium Level 141, White Blood Count 10.5 04/18/16 13:37: Lab Scanned Report Transfusion Reaction Form Assessment/Plan Assessment/Plan Assess & Plan/Chief Complaint 1. Acute Respiratory Distress with recent aspiration pneumonia--back on NC and CXR improved 2. NSTEMI--cardiology following 3. Small Bowel Obstruction--S/P exp lap with SARAH and small bowel resection with reanastamosis--tolerating regular diet 4. Atrial Fibrillation with RVR--back in NSR 5. Hypomagnesemia--on Mg replacement 6. Worsening Post-op Anemia--monitor H/H and transfuse if needed, may need to hold blood thinners 7. Weakness--continue PT 8. Urinary retention--increase urecholine 9. Transfer to floor Diagnosis/Problems: Clinical Quality Measures DVT/VTE Risk/Contraindication: Risk Factor Score Per Nursin RFS Level Per Nursing on Admit: 4+=Very High AIME CANO DO Apr 18, 2016 6:58 pm
--- NOTE | 2016-04-18 20:16 | Wound Care Progress Note ---
Subjective Subjective Subjective/Events-last exam 60 year old male with small area of abrasion on R elbow, appearing to improve. PMH: Recent episode of small bowel obstruction and renal failure. Review of Systems Pulmonary: No Dyspnea Cardiovascular: No: Chest Pain Objective Exam Last Set of Vital Signs Vital Signs Date Time Temp Pulse Resp B/P Pulse Ox O2 Delivery O2 Flow Rate FiO2 04/18/16 19:59 100.0 100 19 154/72 94 Nasal Cannula 3.00 04/16/16 04:00 40 Capillary Refill : I&O Intake and Output 04/18/16 00:00 Intake Total 1690 ml Output Total 2500 ml Balance -810 ml Intake Oral 1240 ml IV Total 400 ml Other 50 ml Output Urine Total 2200 ml Stool Total 300 ml # Bowel Movements 2 General: Alert, No Acute Distress Lungs: Normal Air Movement Skin: Other (R elbow -- 1.0 x 0.6 x 0.1 cm, 100% dessicated tissue.) Results Lab Laboratory Tests 04/17/16 22:58: Hematocrit 26L, Hemoglobin 8.2L 04/18/16 04:40: Hematocrit 27L, Hemoglobin 8.3L, Anion Gap 11, BUN/Creatinine Ratio 15, Basophils # (Auto) 0.0, Basophils (%) (Auto) 0, Blood Urea Nitrogen 15, Calcium Level 8.2L, Carbon Dioxide Level 29, Chloride Level 101, Creatinine 1.02, Eosinophils # (Auto) 0.3, Eosinophils (%) (Auto) 3, Estimat Glomerular Filtration Rate > 60, Glucose Level 87, Lymphocytes # (Auto) 1.2, Lymphocytes (% ) (Auto) 11L, Magnesium Level 1.5L, Mean Corpuscular Hemoglobin 32, Mean Corpuscular Hemoglobin Concent 31L, Mean Corpuscular Volume 102H, Mean Platelet Volume 10.5H, Monocytes # (Auto) 1.2H, Monocytes (%) (Auto) 11, Neutrophils # ( Auto) 7.7, Neutrophils (%) (Auto) 74, Phosphorus Level 2.5, Platelet Count 467H , Potassium Level 4.0, Red Blood Count 2.60L, Red Cell Distribution Width 13.7, Sodium Level 141, White Blood Count 10.5 04/18/16 13:37: Lab Scanned Report Transfusion Reaction Form Assessment/Plan Assessment/Plan Assessment/Plan 1. Abrasion R elbow, improved. 2. Multiple comorbidities. Plan: Elbow pads if he would wear them. LORELEI SNYDER MD Apr 18, 2016 20:16
[2016-04-18] MEDS: ATORVASTATIN 20 MG (LIPITOR) TABLET PO SCH (20:27)
[2016-04-19] VITALS (12 sets, daily range): BP systolic 102–126; BP diastolic 57–72
[2016-04-19] MEDS: RT-ALBUTEROL/IPRATROPIUM 3 ML (DUONEB) VIAL INH SCH ×5 (02:42→18:49)
[2016-04-19 04:54] LABS: BASOPHILS # (AUTO) 0.1 10^3/uL (0.0-0.1); BASOPHILS % (AUTO) 1 % (0-10); EOSINOPHILS # (AUTO) 0.2 10^3/uL (0.0-0.3); EOSINOPHILS % (AUTO) 2 % (0-10); LYMPHOCYTES # (AUTO) 1.3 X 10^3 (1.0-4.0); LYMPHOCYTES % (AUTO) 13 % (12-44); MEAN CORPUSCULAR HEMOGLOBIN 32 PG (25-34); MEAN CORPUSCULAR HGB CONC 31 G/DL (32-36); MEAN CORPUSCULAR VOLUME 102 FL (80-99); MEAN PLATELET VOLUME 10.1 FL (7.4-10.4); MONOCYTES # (AUTO) 1.1 X 10^3 (0.0-1.0); MONOCYTES % (AUTO) 11 % (0-12); NEUTROPHILS # (AUTO) 7.4 X 10^3 (1.8-7.8); NEUTROPHILS % (AUTO) 74 % (42-75); PLATELET COUNT 503 10^3/uL (130-400); RED BLOOD COUNT 2.32 10^6/uL (4.35-5.85)
[2016-04-19 05:09] LABS: ANION GAP 13 MMOL/L (5-14); BLOOD UREA NITROGEN 14 MG/DL (7-18); BUN/CREATININE RATIO 12; CARBON DIOXIDE 30 MMOL/L (21-32); CHLORIDE 98 MMOL/L (98-107); CREATININE SERUM 1.17 MG/DL (0.60-1.30); GFR ESTIMATED > 60; GLUCOSE 85 MG/DL (70-105); MAGNESIUM 1.2 MG/DL (1.8-2.4); POTASSIUM 3.7 MMOL/L (3.6-5.0); SODIUM 141 MMOL/L (135-145)
[2016-04-19] MEDS: POTASSIUM CL 10MEQ/50ML IVPB 50 ML IV SCH (05:50)
[2016-04-19] MEDS: KCL 20 MEQ TAB (K-DUR) PO SCH (05:51)
[2016-04-19] MEDS ORDERED: MAGNESIUM 1 GM/100 ML IVPB 100 ML IV SCH (06:00)
[2016-04-19] MEDS: THIAMINE 100 MG (VITAMIN B-1) TAB PO SCH (06:41)
[2016-04-19] MEDS: MULTIVIT W/MINERALS TAB (THERAGRAN M) PO SCH (06:42)
[2016-04-19] MEDS: LEVOTHYROXINE 50 MCG (LEVOTHROID) TAB PO SCH (06:42)
[2016-04-19] MEDS: AUGMENTIN 875 MG TAB (AMOXICILLIN/CLAVULANATE) PO SCH ×2 (06:42→16:50)
[2016-04-19] MEDS: BETHANECHOL 25 MG (URECHOLINE) TAB PO SCH ×4 (06:47→21:19)
[2016-04-19] MEDS: SUCRALFATE 1 GM (CARAFATE) TAB PO SCH ×4 (06:47→21:19)
[2016-04-19] MEDS: NYSTATIN ORAL SUSP 5 ML UDC PO SCH ×3 (06:47→18:30)
[2016-04-19] MEDS ORDERED: ACETAMINOPHEN 325 MG TABLET/CAPLET (TYLENOL) PO NR (07:15)
[2016-04-19] MEDS ORDERED: diphenhydrAMINE 25 MG TAB (BENADRYL) PO NR (07:15)
[2016-04-19] MEDS: RT-BUDESONIDE NEBS 0.5 MG/2ML (PULMICORT) AMP INH SCH (07:20)
--- NOTE | 2016-04-19 07:50 | Pulmonary Progress Note ---
Subjective Subjective/Events-last exam Pt is doing well. No complications noted. Exam Exam Vital Signs Date Time Temp Pulse Resp B/P Pulse Ox O2 Delivery O2 Flow Rate FiO2 04/19/16 07:24 97 5.00 04/19/16 07:18 87 4.00 04/19/16 04:00 98.7 93 20 126/65 92 Nasal Cannula 3.00 04/19/16 02:43 4.00 04/19/16 00:00 98.7 97 20 120/63 94 Nasal Cannula 3.00 04/18/16 22:54 4.00 04/18/16 21:51 99.3 04/18/16 21:12 100.0 04/18/16 19:59 100.0 100 19 154/72 94 Nasal Cannula 3.00 04/18/16 18:48 4.00 04/18/16 18:48 89 2.00 04/18/16 16:12 98.5 91 19 118/71 93 Nasal Cannula 3.00 04/18/16 14:55 91 2.00 04/18/16 13:11 98.1 94 20 116/60 94 Nasal Cannula 3.00 04/18/16 12:30 91 3.00 04/18/16 10:47 90 2.00 04/18/16 09:10 98.1 I & O 04/19/16 07:00 Intake Total 1762 ml Output Total 2750 ml Balance -988 ml General Appearance: No Apparent Distress HEENT: PERRL/EOMI Neck: Full Range of Motion Respiratory: Lungs Clear Decreased Breath Sounds Cardiovascular: Regular Rate, Rhythm Systolic Murmur Gastrointestinal: normal bowel sounds non tender soft Extremity: Non Tender No Calf Tenderness No Pedal Edema Neurologic/Psychiatric: Alert Oriented x3 Skin: Normal Color Lymphatic: No Adenopathy Results Lab Laboratory Tests 04/17/16 16:20 04/17/16 22:58 04/18/16 04:40 04/19/16 04:40 Assessment/Plan Assessment/Plan Acute respiratory failure with aspiration - improving -PT is on Augmentin now -SVN's Q4 metabolic encephalopathy - improved -monitor NSTEMI Small bowel obstruction s/p ex lap Inguinal hernia bilateral Acute renal failure/dehydration -IVF Pt is ok for discharge from pulmonary standpoint. Clinical Quality Measures DVT/VTE Risk/Contraindication: Risk Factor Score Per Nursin RFS Level Per Nursing on Admit: 4+=Very High GRETCHEN OLSEN DO Apr 19, 2016 07:50
--- NOTE | 2016-04-19 08:18 | Cardiology Progress Note ---
Subjective Subjective/Events-last exam Patient in bed. Reports he is feeling better. Denies any CP or dyspnea. Review of Systems General: No Night Sweats, No Fatigue, No Malaise HEENT: No Visual Changes, No Dysphasia Pulmonary: No Dyspnea, No Cough Cardiovascular: No: Chest Pain, Palpitations Gastrointestinal: No: Abdominal Pain, Nausea, Vomiting Genitourinary: No Dysuria, No Frequency Musculoskeletal: No: back pain, neck pain Neurological: No: Change in speech, Confusion, Numbness, Weakness Objective-Cardiology Exam Last Set of Vital Signs Vital Signs 04/16/16 04/19/16 04/19/16 04:00 04:00 07:24 Temp 98.7 Pulse 93 Resp 20 B/P 126/65 Pulse Ox 97 O2 Delivery Nasal Cannula O2 Flow Rate 5.00 FiO2 40 Capillary Refill : I&O Intake and Output 04/19/16 00:00 Intake Total 2162 ml Output Total 3100 ml Balance -938 ml Intake Oral 2062 ml IV Total 100 ml Output Urine Total 3000 ml Stool Total 100 ml General: Alert, Oriented X3, No Acute Distress HEENT: Atraumatic, PERRLA Neck: Supple, +2 Carotid Pulse No Bruit Lungs: Clear to Auscultation, Normal Air Movement Heart: Normal S1, Normal S2, Other (tachycardic) Abdomen: Normal Bowel Sounds, Soft Extremities: No Clubbing, No Cyanosis Skin: No Rashes, No Breakdown, No Significant Lesion, Other (R elbow -- 1.0 x 0.6 x 0.1 cm, 100% dessicated tissue.) Neuro: Normal Speech, Cranial Nerves 3-12 NL Psych/Mental Status: Mental Status NL, Mood NL Results Lab Laboratory Tests 04/19/16 04:40 A/P-Cardiology Admission Diagnosis Acute respiratory distress NSTEMI Hypomagnesemia Diastolic CHF Assessment/Plan Acute respiratory distress - likely combination of COPD, aspiration pneumonia, acute diastolic heart failure. Defer management of respiratory pathology to Dr. Sanchez and Dr. Mcdaniel. Much improved now. Atrial fibrillation: currently in sinus tachycardia. On metoprolol. Continue to monitor. Acute diastolic congestive heart failure: normal EF and elevated BNP. Continue to diurese Non-ST elevation PA: Plavix and Lovenox. Continue aspirin. Add Lipitor. may require a stress test before discharge. LMWH x 48 hours. convert to DVT prophylaxis dose. Elevated creatinine, continue to monitor. Possible left atrial thrombus, full anticoagulation with Lovenox is recommended. DIAN may be recommended when more stable pulmonary mo. Patient asking to have this done by his primary dispatch coordinator as an outpatient Hypomagnesemia- replace, continue to monitor. Anemia- continue to monitor. Clinical Quality Measures DVT/VTE Risk/Contraindication: Risk Factor Score Per Nursin RFS Level Per Nursing on Admit: 4+=Very High DAWN OCONNELL Apr 19, 2016 08:18
[2016-04-19] MEDS ORDERED: NS IV 500 ML 500 ML IV ONE (08:30)
--- NOTE | 2016-04-19 08:30 | Cardiology Progress Note ---
Subjective Subjective/Events-last exam patient is laying down in bed, feeling better, breathing better. Denied any chest pain. Review of Systems General: No Chills, No Night Sweats, No Fatigue, No Malaise, No Appetite, No Other HEENT: No Head Aches, No Visual Changes, No Eye Pain, No Ear Pain, No Dysphasia , No Sinus Congestion, No Post Nasal Drip, No Sore Throat, No Other Pulmonary: DyspneaNo Cough, No Pleuritic Chest Pain, No Other Cardiovascular: No: Chest Pain, Edema, Lt Headedness, Orthopnea, Other, Palpitations, Paroxysmal Noc. Dyspnea Objective-Cardiology Exam Last Set of Vital Signs Vital Signs 04/16/16 04/19/16 04/19/16 04:00 04:00 07:24 Temp 98.7 Pulse 93 Resp 20 B/P 126/65 Pulse Ox 97 O2 Delivery Nasal Cannula O2 Flow Rate 5.00 FiO2 40 Capillary Refill : I&O Intake and Output 04/19/16 00:00 Intake Total 2162 ml Output Total 3100 ml Balance -938 ml Intake Oral 2062 ml IV Total 100 ml Output Urine Total 3000 ml Stool Total 100 ml General: Alert, Oriented X3, No Acute Distress HEENT: Atraumatic, PERRLA Neck: Supple, +2 Carotid Pulse No Bruit Lungs: Clear to Auscultation, Normal Air Movement Heart: Normal S1, Normal S2, Other (tachycardic) Abdomen: Normal Bowel Sounds, Soft Extremities: No Clubbing, No Cyanosis Skin: No Rashes, No Breakdown, No Significant Lesion, Other (R elbow -- 1.0 x 0.6 x 0.1 cm, 100% dessicated tissue.) Neuro: Normal Speech, Cranial Nerves 3-12 NL Psych/Mental Status: Mental Status NL, Mood NL Results Lab Laboratory Tests 04/19/16 04:40 A/P-Cardiology Admission Diagnosis Acute respiratory distress NSTEMI Hypomagnesemia Diastolic CHF Assessment/Plan Status post respiratory failure - likely combination of COPD, aspiration pneumonia, acute diastolic heart failure. Defer management of respiratory pathology to Dr. Sanchez and Dr. Mcdaniel. Much improved now. Atrial fibrillation: currently in sinus tachycardia. On metoprolol. Continue to monitor. Acute diastolic congestive heart failure: normal EF and elevated BNP, responded to diuretics well, add DEXTER inhibitor and evaluate his tolerance and response. Continue to monitor Non-ST elevation CO: Plavix and Lovenox. Continue aspirin. Add Lipitor. may require a stress test before discharge. Elevated creatinine, continue to monitor. Possible left atrial thrombus, full anticoagulation with Lovenox is recommended. DIAN may be recommended when more stable pulmonary mo. Patient asking to have this done by his primary laborer beam house as an outpatient Hypomagnesemia- replace, continue to monitor. Anemia- continue to monitor. Clinical Quality Measures DVT/VTE Risk/Contraindication: Risk Factor Score Per Nursin RFS Level Per Nursing on Admit: 4+=Very High PAYTON BUTCHER MD Apr 19, 2016 08:30
--- NOTE | 2016-04-19 08:36 | Diagnostic Imaging Report ---
EXAMINATION: Portable upright radiograph of the chest. INDICATION: Dyspnea. FINDINGS: Again seen is a small left pleural effusion and minimal bibasilar infiltrate or atelectasis. Slight prominence of the vascular markings could be related to congestion. The heart size is normal. The mediastinum and bebe appear unremarkable. There is a PICC line and left subclavian venous line, both terminating in the mid SVC level. Again seen are sternotomy wires and cervical spine fusion hardware. IMPRESSION: Unchanged minimal vascular congestion and bibasilar infiltrate or atelectasis. Small left effusion. Dictated by: Dictated on workstation # [id number]
[2016-04-19] MEDS: PATCH REMOVAL TP SCH (08:59)
[2016-04-19] MEDS: BISACODYL 10 MG SUPP (DULCOLAX) PR SCH ×2 (09:00→21:00)
[2016-04-19] MEDS: NICOTINE 21 MG (NICODERM) PATCH TD SCH (09:00)
[2016-04-19] MEDS: PANTOPRAZOLE 40 MG/10 ML (PROTONIX) VIAL IV SCH ×2 (09:30→21:20)
[2016-04-19] MEDS: SPIRONOLACTONE 25 MG (ALDACTONE) TAB PO SCH (09:30)
[2016-04-19] MEDS: meTOproloL SUCCINATE 50 MG (TOPROL XL) TAB PO SCH ×2 (09:31→21:19)
[2016-04-19] MEDS: MAGNESIUM 1 GM/100 ML IVPB 100 ML IV SCH ×2 (09:34→10:50)
[2016-04-19] MEDS: ENALAPRIL 2.5 MG (VASOTEC) TAB PO SCH (09:45)
[2016-04-19] MEDS ORDERED: FUROSEMIDE 40 MG/4 ML INJ (LASIX) IVP NR (10:00)
[2016-04-19] MEDS: KCL 10 MEQ TAB (MICRO K) PO SCH (10:51)
--- NOTE | 2016-04-19 11:10 | Physical Therapy Progress Note ---
Therapy Progress Note Patient request to wait for blood to be given prior to gait. PT will attempt in p.m. Patient receiving 1 of 2 units at this time. JESS LAZCANO PT Apr 19, 2016 11:10
--- NOTE | 2016-04-19 11:20 | Progress Note (SOAP) ---
Subjective Subjective/Events-last exam doing ok. no new issues. anemic again most likely microscopic loss GI tract from anticoagulation. plavix held. tolerating diet and having BM's. Objective Exam Vital Signs Date Time Temp Pulse Resp B/P Pulse Ox O2 Delivery O2 Flow Rate FiO2 04/19/16 10:52 92 5.00 04/19/16 09:35 98.5 106 24 102/60 90 5.00 04/19/16 09:05 98.9 99 18 106/65 90 5.00 04/19/16 08:00 98.8 99 18 106/65 90 Nasal Cannula 3.00 04/19/16 07:24 97 5.00 04/19/16 07:18 87 4.00 04/19/16 04:00 98.7 93 20 126/65 92 Nasal Cannula 3.00 04/19/16 02:43 4.00 04/19/16 00:00 98.7 97 20 120/63 94 Nasal Cannula 3.00 04/18/16 22:54 4.00 04/18/16 21:51 99.3 04/18/16 21:12 100.0 04/18/16 19:59 100.0 100 19 154/72 94 Nasal Cannula 3.00 04/18/16 18:48 4.00 04/18/16 18:48 89 2.00 04/18/16 16:12 98.5 91 19 118/71 93 Nasal Cannula 3.00 04/18/16 14:55 91 2.00 04/18/16 13:11 98.1 94 20 116/60 94 Nasal Cannula 3.00 04/18/16 12:30 91 3.00 I & O 04/19/16 07:00 Intake Total 1762 ml Output Total 2750 ml Balance -988 ml Capillary Refill : General Appearance: No Apparent Distress HEENT: PERRL/EOMI Neck: Full Range of Motion Respiratory: Chest Non Tender Decreased Breath Sounds Rhonci Cardiovascular: Regular Rate, Rhythm Gastrointestinal: normal bowel sounds non tender soft Extremity: Normal Capillary Refill Neurologic/Psychiatric: Alert Oriented x3 Skin: Normal Color Lymphatic: No Adenopathy Results Lab Laboratory Tests 04/18/16 13:37: Lab Scanned Report Transfusion Reaction Form 04/19/16 04:40: Anion Gap 13, BUN/Creatinine Ratio 12, Basophils # (Auto) 0.1, Basophils (%) ( Auto) 1, Blood Urea Nitrogen 14, Calcium Level 8.0L, Carbon Dioxide Level 30, Chloride Level 98, Creatinine 1.17, Eosinophils # (Auto) 0.2, Eosinophils (%) ( Auto) 2, Estimat Glomerular Filtration Rate > 60, Glucose Level 85, Hematocrit 24L, Hemoglobin 7.4L, Lymphocytes # (Auto) 1.3, Lymphocytes (%) (Auto) 13, Magnesium Level 1.2L, Mean Corpuscular Hemoglobin 32, Mean Corpuscular Hemoglobin Concent 31L, Mean Corpuscular Volume 102H, Mean Platelet Volume 10.1 , Monocytes # (Auto) 1.1H, Monocytes (%) (Auto) 11, Neutrophils # (Auto) 7.4, Neutrophils (%) (Auto) 74, Platelet Count 503H, Potassium Level 3.7, Red Blood Count 2.32L, Red Cell Distribution Width 13.0, Sodium Level 141, White Blood Count 10.0 Assessment/Plan Assessment/Plan Assess & Plan/Chief Complaint respiratory insufficiency s/p SARAH and SBR. continue aggressive pulmonary support with bipap as needed. ambulate. diet as tolerated. plavix held due to blood loss anemia. Diagnosis/Problems: Clinical Quality Measures DVT/VTE Risk/Contraindication: Risk Factor Score Per Nursin RFS Level Per Nursing on Admit: 4+=Very High BRITTANY CHAPA MD Apr 19, 2016 11:20
[2016-04-19] MEDS: FUROSEMIDE 40 MG (LASIX) TAB PO SCH (11:48)
--- NOTE | 2016-04-19 14:10 | Physical Therapy Daily Note ---
PT Daily Note-Current Subjective Patient is very agreeable to participate with PT. Pain Numeric Pain Scale: 5-Moderate Pain Location: Lower Location Body Site: Abdomen Pain Description: Pressure Mental Status Patient Orientation: Normal For Age Attachments: Oxygen, Helms Catheter, IV Transfers Functional [place] Measure 0=Not Assessed/NA 4=Minimal Assistance 1=Total Assistance 5=Supervision or Setup 2=Maximal Assistance 6=Modified [place] 3=Moderate Assistance 7=Complete IndependenceIRFPAI Quality Coding Scale 6 Independent with activity with or without an assistive device 5 Patient requires set up or clean up by helper. Patient completes activity by themselves 4 Supervision or touching assist (CGA). [place] provide cues , steadying assist 3 The helper provides less than half the effort to complete the activity 2 The helper provides more than half the effort to complete the activity 1 Dependent. The helper does all the effort to complete an activity 7 Patient refused to complete or attempt activity 9 The patient did not perform the activity before the current illness or injury 88 Not attempted due to Medical conditions or safety concerns Transfers (B, C, W/C) (FIM): 5 Scootin Rollin Supine to/from Sit: 5 Sit to/from Stand: 5 Gait Training Gait (FIM): 5 Distance (FIM): 3=150 ft Distance: 400' Gait Level of Assist: 5 Gait Persons Needed: 1 Gait Assistive Device: FWW slow, steady Exercises Seated Therapy Exercises: Ankle pumps, Long arc quads Seated Reps: 25 Assessment Patient fatigued with treatment. O2 5-6L NC HF in place. PT to increase activity as tolerated by patient. PT Short Term Goals Short Term Goals Time Frame: Apr 23, 2016 Transfers (B,C,W/C) (FIM): 6 PT Fci Goals Fci Goals PT Fci Goals Time Frame: Apr 30, 2016 Transfers (B,C,W/C) (FIM): 6 Gait (FIM): 6 Gait distance (FIM): 3=150 ft Distance: 150 Gait Level of Assist: 6 Gait Assistive Device: FWW Stairs (FIM): 5 # of Steps: 4 Stairs Level Of Assist: 6 PT Plan Treatment/Plan Treatment Plan: Continue Plan of Care Treatment Plan: Bed Mobility, Education, Functional Activity Kris, Functional Strength, Gait, Safety, Therapeutic Exercise, Transfers Treatment Duration: Apr 30, 2016 Visits Per Week: 5-6 Time/GCodes Time In: 1340 Time Out: 1403 Total Billed Treatment Time: 23 Total Billed Treatment 1 visit FA x 2 23 min JESS LAZCANO PT Apr 19, 2016 14:09
--- NOTE | 2016-04-19 18:30 | Progress Note (SOAP) ---
Subjective Subjective/Events-last exam Fwup small bowel obstruction--S/P exploratory lab with small bowel resection and reanastamosis, acute renal failure--worsened since surgery, dehydration, COPD, Atrial fibrillation with RVR, Post-op VDRF with aspiration pneumonia, NSTEMI, acute anemia. Feeling little better. Objective Exam Vital Signs Date Time Temp Pulse Resp B/P Pulse Ox O2 Delivery O2 Flow Rate FiO2 04/19/16 16:00 98.7 89 18 117/63 94 Nasal Cannula 3.00 04/19/16 15:05 98.3 74 22 104/57 91 5.00 04/19/16 14:41 95 4.00 04/19/16 12:25 98.7 89 22 113/72 95 5.00 04/19/16 12:10 99.2 94 24 115/65 94 5.00 04/19/16 11:45 99.2 94 24 115/65 94 5.00 04/19/16 10:52 92 5.00 04/19/16 09:35 98.5 106 24 102/60 90 5.00 04/19/16 09:05 98.9 99 18 106/65 90 5.00 04/19/16 08:00 5.00 04/19/16 08:00 98.8 99 18 106/65 90 Nasal Cannula 3.00 04/19/16 07:24 97 5.00 04/19/16 07:18 87 4.00 04/19/16 04:00 98.7 93 20 126/65 92 Nasal Cannula 3.00 04/19/16 02:43 4.00 04/19/16 00:00 98.7 97 20 120/63 94 Nasal Cannula 3.00 04/18/16 22:54 4.00 04/18/16 21:51 99.3 04/18/16 21:12 100.0 04/18/16 19:59 100.0 100 19 154/72 94 Nasal Cannula 3.00 04/18/16 18:48 4.00 04/18/16 18:48 89 2.00 I & O 04/19/16 07:00 Intake Total 1762 ml Output Total 2750 ml Balance -988 ml Capillary Refill : General Appearance: No Apparent Distress Neck: Supple Respiratory: Lungs Clear Cardiovascular: Regular Rate, Rhythm Systolic Murmur Tachycardia Gastrointestinal: normal bowel sounds non tender soft Extremity: Non Tender No Calf Tenderness No Pedal Edema Neurologic/Psychiatric: Alert Oriented x3 Skin: Pallor Results Lab Laboratory Tests 04/19/16 04:40: Anion Gap 13, BUN/Creatinine Ratio 12, Basophils # (Auto) 0.1, Basophils (%) ( Auto) 1, Blood Urea Nitrogen 14, Calcium Level 8.0L, Carbon Dioxide Level 30, Chloride Level 98, Creatinine 1.17, Eosinophils # (Auto) 0.2, Eosinophils (%) ( Auto) 2, Estimat Glomerular Filtration Rate > 60, Glucose Level 85, Hematocrit 24L, Hemoglobin 7.4L, Lymphocytes # (Auto) 1.3, Lymphocytes (%) (Auto) 13, Magnesium Level 1.2L, Mean Corpuscular Hemoglobin 32, Mean Corpuscular Hemoglobin Concent 31L, Mean Corpuscular Volume 102H, Mean Platelet Volume 10.1 , Monocytes # (Auto) 1.1H, Monocytes (%) (Auto) 11, Neutrophils # (Auto) 7.4, Neutrophils (%) (Auto) 74, Platelet Count 503H, Potassium Level 3.7, Red Blood Count 2.32L, Red Cell Distribution Width 13.0, Sodium Level 141, White Blood Count 10.0 04/19/16 11:06: Glucometer 135H 04/19/16 16:25: Glucometer 111H Assessment/Plan Assessment/Plan Assess & Plan/Chief Complaint 1. Acute Respiratory Distress with recent aspiration pneumonia--back on NC and CXR improved 2. NSTEMI--cardiology following 3. Small Bowel Obstruction--S/P exp lap with SARAH and small bowel resection with reanastamosis--tolerating regular diet 4. Atrial Fibrillation with RVR--back in NSR 5. Hypomagnesemia--on Mg replacement 6. Worsening Post-op Anemia--hold blood thinners today and transfuse--restart anticoagulation tomorrow if H/Hstable 7. Weakness--continue PT 8. Urinary retention--increased urecholine dose so may try bladder training with ortiz DC tomorrow Diagnosis/Problems: Clinical Quality Measures DVT/VTE Risk/Contraindication: Risk Factor Score Per Nursin RFS Level Per Nursing on Admit: 4+=Very High AIME CANO DO Apr 19, 2016 6:30 pm
[2016-04-19] MEDS: ATORVASTATIN 20 MG (LIPITOR) TABLET PO SCH (21:19)
[2016-04-20] VITALS: BP 127/75
[2016-04-20] MEDS: NYSTATIN ORAL SUSP 5 ML UDC PO SCH ×4 (00:49→18:14)
[2016-04-20] MEDS: RT-ALBUTEROL/IPRATROPIUM 3 ML (DUONEB) VIAL INH SCH ×7 (02:13→22:31)
[2016-04-20] MEDS: RT-BUDESONIDE NEBS 0.5 MG/2ML (PULMICORT) AMP INH SCH ×3 (02:40→19:38)
[2016-04-20 04:00] VITALS: BP 157/89
[2016-04-20 05:10] LABS: BASOPHILS # (AUTO) 0.1 10^3/uL (0.0-0.1); BASOPHILS % (AUTO) 1 % (0-10); EOSINOPHILS # (AUTO) 0.2 10^3/uL (0.0-0.3); EOSINOPHILS % (AUTO) 2 % (0-10); LYMPHOCYTES % (AUTO) 10 % (12-44); MEAN CORPUSCULAR HEMOGLOBIN 31 PG (25-34); MEAN CORPUSCULAR HGB CONC 33 G/DL (32-36); MEAN CORPUSCULAR VOLUME 96 FL (80-99); MEAN PLATELET VOLUME 10.1 FL (7.4-10.4); MONOCYTES # (AUTO) 1.1 X 10^3 (0.0-1.0); MONOCYTES % (AUTO) 10 % (0-12); NEUTROPHILS # (AUTO) 8.2 X 10^3 (1.8-7.8); NEUTROPHILS % (AUTO) 77 % (42-75); PLATELET COUNT 501 10^3/uL (130-400); RED BLOOD COUNT 2.89 10^6/uL (4.35-5.85); RED CELL DISTRIBUTION WIDTH 16.9 % (10.0-14.5); WHITE BLOOD COUNT 10.6 10^3/uL (4.3-11.0)
[2016-04-20 05:25] LABS: ANION GAP 11 MMOL/L (5-14); BLOOD UREA NITROGEN 23 MG/DL (7-18); BUN/CREATININE RATIO 21; CALCIUM 8.1 MG/DL (8.5-10.1); CARBON DIOXIDE 31 MMOL/L (21-32); CHLORIDE 98 MMOL/L (98-107); CREATININE SERUM 1.12 MG/DL (0.60-1.30); GFR ESTIMATED > 60; GLUCOSE 91 MG/DL (70-105); MAGNESIUM 1.1 MG/DL (1.8-2.4); POTASSIUM 3.7 MMOL/L (3.6-5.0); SODIUM 140 MMOL/L (135-145)
[2016-04-20] MEDS: KCL 20 MEQ TAB (K-DUR) PO SCH (06:00)
[2016-04-20] MEDS: LEVOTHYROXINE 50 MCG (LEVOTHROID) TAB PO SCH (06:46)
[2016-04-20] MEDS: BETHANECHOL 25 MG (URECHOLINE) TAB PO SCH ×4 (06:46→21:30)
[2016-04-20] MEDS: SUCRALFATE 1 GM (CARAFATE) TAB PO SCH ×4 (06:46→21:30)
[2016-04-20] MEDS: MULTIVIT W/MINERALS TAB (THERAGRAN M) PO SCH (06:46)
[2016-04-20] MEDS: THIAMINE 100 MG (VITAMIN B-1) TAB PO SCH (06:46)
[2016-04-20 08:00] VITALS: BP 104/61
--- NOTE | 2016-04-20 08:03 | Diagnostic Imaging Report ---
EXAMINATION: Portable upright radiograph of the chest. INDICATION: Effusion, shortness of breath. FINDINGS: There is a small left pleural effusion and left basilar infiltrates or atelectasis. This is similar to the previous exam of 04/19/16. There is improved vascular congestion with remaining interstitial thickening probably chronic. The heart size is normal. There is sternotomy wires and cervical spine fusion hardware seen. A PICC line and left subclavian line are unchanged with the tip of both catheters in the SVC. IMPRESSION: Small left pleural effusion with adjacent basilar mild infiltrates or atelectasis. Dictated by: Dictated on workstation # [id number]
--- NOTE | 2016-04-20 08:31 | Cardiology Progress Note ---
Subjective Subjective/Events-last exam Patient sitting up in chair. No new complaints. Denies any CP or increased dyspnea. Review of Systems General: No Night Sweats, No Fatigue, No Malaise HEENT: No Visual Changes, No Dysphasia, No Sore Throat Pulmonary: DyspneaNo Cough, No Pleuritic Chest Pain Cardiovascular: No: Chest Pain, Edema, Palpitations, Paroxysmal Noc. Dyspnea Gastrointestinal: No: Abdominal Pain, Nausea, Vomiting Genitourinary: No Dysuria, No Frequency Musculoskeletal: No: back pain, neck pain Neurological: No: Numbness, Weakness Objective-Cardiology Exam Last Set of Vital Signs Vital Signs 04/16/16 04/20/16 04/20/16 04:00 04:00 06:31 Temp 98.9 Pulse 86 Resp 20 B/P 157/89 Pulse Ox 94 O2 Delivery Nasal Cannula O2 Flow Rate 5.00 FiO2 40 Capillary Refill : I&O Intake and Output 04/20/16 00:00 Intake Total 1920 ml Output Total 4800 ml Balance -2880 ml Intake Oral 1670 ml IV Total 250 ml Output Urine Total 4800 ml # Bowel Movements 2 General: Alert, Oriented X3, No Acute Distress HEENT: Atraumatic, PERRLA Neck: Supple, +2 Carotid Pulse No Bruit Lungs: Clear to Auscultation, Normal Air Movement Heart: Regular Rate, Normal S1, Normal S2 Abdomen: Normal Bowel Sounds, Soft Extremities: No Clubbing, No Cyanosis Skin: No Rashes, No Breakdown, No Significant Lesion, Other (R elbow -- 1.0 x 0.6 x 0.1 cm, 100% dessicated tissue.) Neuro: Normal Speech, Cranial Nerves 3-12 NL Psych/Mental Status: Mental Status NL, Mood NL Results Lab Laboratory Tests 04/20/16 05:00 A/P-Cardiology Admission Diagnosis Acute respiratory distress NSTEMI Hypomagnesemia Diastolic CHF Assessment/Plan Status post respiratory failure - likely combination of COPD, aspiration pneumonia, acute diastolic heart failure. Much improved now. Continue to monitor. Paroxysmal Atrial fibrillation, currently in sinus tachycardia. On metoprolol. Continue to monitor. Acute diastolic congestive heart failure: normal EF and elevated BNP, responded to diuretics well,continue to monitor. Non-ST elevation [place]: Plavix and Lovenox. Continue aspirin. Started on Lipitor. May require stress test prior to discharge. Elevated creatinine, continue to monitor. Possible left atrial thrombus, full anticoagulation with Lovenox is recommended. DIAN may be recommended when more stable pulmonary mo. Patient asking to have this done by his primary steam generating powerplant mechanic as an outpatient Hypomagnesemia- replace, continue to monitor. Anemia- continue to monitor. Clinical Quality Measures DVT/VTE Risk/Contraindication: Risk Factor Score Per Nursin RFS Level Per Nursing on Admit: 4+=Very High DAWN OCONNELL Apr 20, 2016 08:31
[2016-04-20] MEDS: BISACODYL 10 MG SUPP (DULCOLAX) PR SCH ×2 (09:00→21:00)
[2016-04-20] MEDS: PANTOPRAZOLE 40 MG/10 ML (PROTONIX) VIAL IV SCH ×2 (09:01→21:30)
[2016-04-20] MEDS: HYDROcodone/APAP 7.5 MG/325 MG (LORTAB, LORCET PLUS) TABLET PO PRN ×2 (09:01→13:12)
[2016-04-20] MEDS: SPIRONOLACTONE 25 MG (ALDACTONE) TAB PO SCH (09:01)
[2016-04-20] MEDS: meTOproloL SUCCINATE 50 MG (TOPROL XL) TAB PO SCH ×2 (09:01→21:30)
[2016-04-20] MEDS: ENALAPRIL 2.5 MG (VASOTEC) TAB PO SCH (09:01)
[2016-04-20] MEDS: PATCH REMOVAL TP SCH (09:02)
[2016-04-20] MEDS: NICOTINE 21 MG (NICODERM) PATCH TD SCH (09:02)
--- NOTE | 2016-04-20 10:06 | Physical Therapy Daily Note ---
PT Daily Note-Current Subjective Agrees to PT. Wants to walk. Reports he hopes to get his catheter out today. Mental Status Patient Orientation: Person, Place, Time, Situation Transfers Functional [place] Measure 0=Not Assessed/NA 4=Minimal Assistance 1=Total Assistance 5=Supervision or Setup 2=Maximal Assistance 6=Modified [place] 3=Moderate Assistance 7=Complete IndependenceIRFPAI Quality Coding Scale 6 Independent with activity with or without an assistive device 5 Patient requires set up or clean up by helper. Patient completes activity by themselves 4 Supervision or touching assist (CGA). [place] provide cues , steadying assist 3 The helper provides less than half the effort to complete the activity 2 The helper provides more than half the effort to complete the activity 1 Dependent. The helper does all the effort to complete an activity 7 Patient refused to complete or attempt activity 9 The patient did not perform the activity before the current illness or injury 88 Not attempted due to Medical conditions or safety concerns Transfers (B, C, W/C) (FIM): 5 Supine to/from Sit: 5 Sit to/from Stand: 5 Pt is SBA with all functional transfers and including toilet transfer. Pt able to get in/out of bed and stand with supervision only. Pt able to transfer on/ off toilet with supervision and perform mercy care mod indep Gait Training Gait (FIM): 5 Distance (FIM): 3=150 ft Distance: 250 ft Gait Assistive Device: Cane Large Base Quad Pt ambulated in his room to from the bathroom with SBA with FWW with turning and managing tight spaces. Stood at sink to wash hands and face as well as brush teeth--all with SBA. Treatments Functional transfers, mercy care, self care with dynamic standing and giat. All with oxygen in situ and in place post treatment at 5l/min via nasal cannula. Assessment Current Status: Good Progress Pt does fatigue and lacks functional actitivity tolerance with tasks. However, able to perfrom all without sitting rest break. PT Short Term Goals Short Term Goals Time Frame: Apr 23, 2016 Transfers (B,C,W/C) (FIM): 6 PT Fdc Goals Valet Attendant Goals PT Valet Attendant Goals Time Frame: Apr 30, 2016 Transfers (B,C,W/C) (FIM): 6 Gait (FIM): 6 Gait distance (FIM): 3=150 ft Distance: 150 Gait Level of Assist: 6 Gait Assistive Device: FWW Stairs (FIM): 5 # of Steps: 4 Stairs Level Of Assist: 6 PT Plan Problem List Problem List: Activity Tolerance, Functional Strength, Safety, Balance, Gait, Transfer, Bed Mobility Treatment/Plan Treatment Plan: Continue Plan of Care Treatment Plan: Bed Mobility, Education, Functional Activity Kris, Functional Strength, Gait, Safety, Therapeutic Exercise, Transfers Treatment Duration: Apr 30, 2016 Visits Per Week: 5-6 Safety Risks/Education Patient Education: Transfer Techniques, Safety Issues Teaching Recipient: Patient Teaching Methods: Discussion Response to Teaching: Return Demonstration Time/GCodes Time In: 921 Time Out: 947 Total Billed Treatment Time: 26 Total Billed Treatment visit FA 16 GT 10 MICHAEL GALLEGOS PT Apr 20, 2016 10:05
[2016-04-20] MEDS: ALPRAZolam 0.25 MG (XANAX) TAB PO PRN ×2 (13:35→21:30)
--- NOTE | 2016-04-20 14:08 | Progress Note (SOAP) ---
Subjective Subjective/Events-last exam doing fine. still has urinary retention. eating well and having BM's Objective Exam Vital Signs Date Time Temp Pulse Resp B/P Pulse Ox O2 Delivery O2 Flow Rate FiO2 04/20/16 10:19 97 5.00 04/20/16 08:00 98.5 102 20 104/61 93 Nasal Cannula 3.00 04/20/16 06:31 94 5.00 04/20/16 06:25 94 5.00 04/20/16 04:00 98.9 86 20 157/89 98 Nasal Cannula 3.00 04/20/16 02:41 97 5.00 04/20/16 02:41 97 5.00 04/20/16 00:00 99.0 104 20 127/75 92 Nasal Cannula 3.00 04/19/16 21:33 90 122/70 04/19/16 20:25 98.9 99 18 117/59 92 Nasal Cannula 3.00 04/19/16 20:00 5.00 04/19/16 18:49 90 4.00 04/19/16 16:00 98.7 89 18 117/63 94 Nasal Cannula 3.00 04/19/16 15:05 98.3 74 22 104/57 91 5.00 04/19/16 14:41 95 4.00 I & O 04/20/16 07:00 Intake Total 1880 ml Output Total 4700 ml Balance -2820 ml Capillary Refill : General Appearance: No Apparent Distress HEENT: PERRL/EOMI Neck: Full Range of Motion Respiratory: Chest Non Tender Cardiovascular: Regular Rate, Rhythm Gastrointestinal: normal bowel sounds non tender soft Extremity: Normal Capillary Refill Neurologic/Psychiatric: Alert Oriented x3 Skin: Normal Color Lymphatic: No Adenopathy Results Lab Laboratory Tests 04/19/16 16:25: Glucometer 111H 04/20/16 05:00: Anion Gap 11, BUN/Creatinine Ratio 21, Basophils # (Auto) 0.1, Basophils (%) ( Auto) 1, Blood Urea Nitrogen 23H, Calcium Level 8.1L, Carbon Dioxide Level 31, Chloride Level 98, Creatinine 1.12, Eosinophils # (Auto) 0.2, Eosinophils (%) ( Auto) 2, Estimat Glomerular Filtration Rate > 60, Glucose Level 91, Hematocrit 28L, Hemoglobin 9.0#L, Lymphocytes # (Auto) 1.0, Lymphocytes (%) (Auto) 10L, Magnesium Level 1.1L, Mean Corpuscular Hemoglobin 31, Mean Corpuscular Hemoglobin Concent 33, Mean Corpuscular Volume 96, Mean Platelet Volume 10.1, Monocytes # (Auto) 1.1H, Monocytes (%) (Auto) 10, Neutrophils # (Auto) 8.2H, Neutrophils (%) (Auto) 77H, Platelet Count 501H, Potassium Level 3.7, Red Blood Count 2.89L, Red Cell Distribution Width 16.9H, Sodium Level 140, White Blood Count 10.6 Assessment/Plan Assessment/Plan Assess & Plan/Chief Complaint respiratory insufficiency s/p SARAH and SBR. continue aggressive pulmonary support with bipap as needed. ambulate. diet as tolerated. plavix held due to blood loss anemia. urology for urinary retention. Diagnosis/Problems: Clinical Quality Measures DVT/VTE Risk/Contraindication: Risk Factor Score Per Nursin RFS Level Per Nursing on Admit: 4+=Very High BRITTANY CHAPA MD Apr 20, 2016 2:08 pm
--- NOTE | 2016-04-20 14:32 | Cardiology Progress Note ---
Subjective Subjective/Events-last exam Patient is in bed, feeling better, complaining of hematuria, denied any chest pain Review of Systems General: No Chills, No Night Sweats, No Fatigue, No Malaise, No Appetite, No Other HEENT: No Head Aches, No Visual Changes, No Eye Pain, No Ear Pain, No Dysphasia , No Sinus Congestion, No Post Nasal Drip, No Sore Throat, No Other Pulmonary: DyspneaNo Cough, No Pleuritic Chest Pain, No Other Cardiovascular: No: Chest Pain, Edema, Lt Headedness, Orthopnea, Other, Palpitations, Paroxysmal Noc. Dyspnea Objective-Cardiology Exam Last Set of Vital Signs Vital Signs 04/16/16 04/20/16 04/20/16 04:00 08:00 14:08 Temp 98.5 Pulse 102 Resp 20 B/P 104/61 Pulse Ox 97 O2 Delivery Nasal Cannula O2 Flow Rate 5.00 FiO2 40 Capillary Refill : I&O Intake and Output 04/20/16 00:00 Intake Total 1920 ml Output Total 4800 ml Balance -2880 ml Intake Oral 1670 ml IV Total 250 ml Output Urine Total 4800 ml # Bowel Movements 2 General: Alert, Oriented X3, No Acute Distress HEENT: Atraumatic, PERRLA Neck: Supple, +2 Carotid Pulse No Bruit Lungs: Clear to Auscultation, Normal Air Movement Heart: Regular Rate, Normal S1, Normal S2 Abdomen: Normal Bowel Sounds, Soft Extremities: No Clubbing, No Cyanosis Skin: No Rashes, No Breakdown, No Significant Lesion, Other (R elbow -- 1.0 x 0.6 x 0.1 cm, 100% dessicated tissue.) Neuro: Normal Speech, Cranial Nerves 3-12 NL Psych/Mental Status: Mental Status NL, Mood NL Results Lab Laboratory Tests 04/20/16 05:00 A/P-Cardiology Admission Diagnosis Acute respiratory distress NSTEMI Hypomagnesemia Diastolic CHF Assessment/Plan Status post respiratory failure - likely combination of COPD, aspiration pneumonia, acute diastolic heart failure. Much improved now. Continue to monitor. Paroxysmal Atrial fibrillation, currently in sinus tachycardia. On metoprolol. Continue to monitor. Acute diastolic congestive heart failure: normal EF and elevated BNP, responded to diuretics well,continue to monitor. Non-ST elevation [place]: Plavix and Lovenox. Continue aspirin. Started on Lipitor. May require stress test prior to discharge. Possible left atrial thrombus, full anticoagulation with Lovenox is recommended. DIAN may be recommended when more stable pulmonary mo. Patient asking to have this done by his primary health center associate as an outpatient Hypomagnesemia- replace, continue to monitor. Anemia, managed by primary care physician- continue to monitor. Clinical Quality Measures DVT/VTE Risk/Contraindication: Risk Factor Score Per Nursin RFS Level Per Nursing on Admit: 4+=Very High PAYTON BUTCHER MD Apr 20, 2016 14:31
[2016-04-20 16:30] VITALS: BP 102/60
--- NOTE | 2016-04-20 17:35 | Progress Note (SOAP) ---
Subjective Subjective/Events-last exam Fwup small bowel obstruction--S/P exploratory lab with small bowel resection and reanastamosis, acute renal failure--worsened since surgery, dehydration, COPD, Atrial fibrillation with RVR, Post-op VDRF with aspiration pneumonia, NSTEMI, acute anemia. Wants something for anxiety. Objective Exam Vital Signs Date Time Temp Pulse Resp B/P Pulse Ox O2 Delivery O2 Flow Rate FiO2 04/20/16 16:30 98.1 89 18 102/60 99 Nasal Cannula 3.00 04/20/16 14:08 97 5.00 04/20/16 10:19 97 5.00 04/20/16 08:00 98.5 102 20 104/61 93 Nasal Cannula 3.00 04/20/16 06:31 94 5.00 04/20/16 06:25 94 5.00 04/20/16 04:00 98.9 86 20 157/89 98 Nasal Cannula 3.00 04/20/16 02:41 97 5.00 04/20/16 02:41 97 5.00 04/20/16 00:00 99.0 104 20 127/75 92 Nasal Cannula 3.00 04/19/16 21:33 90 122/70 04/19/16 20:25 98.9 99 18 117/59 92 Nasal Cannula 3.00 04/19/16 20:00 5.00 04/19/16 18:49 90 4.00 I & O 04/20/16 07:00 Intake Total 1880 ml Output Total 4700 ml Balance -2820 ml Capillary Refill : General Appearance: No Apparent Distress Neck: Supple Respiratory: Decreased Breath Sounds Rhonci (right base) Cardiovascular: Regular Rate, Rhythm Systolic Murmur Gastrointestinal: normal bowel sounds non tender soft Extremity: Non Tender No Calf Tenderness No Pedal Edema Neurologic/Psychiatric: Alert Oriented x3 Other (anxious) Skin: Pallor Results Lab Laboratory Tests 04/20/16 05:00: Anion Gap 11, BUN/Creatinine Ratio 21, Basophils # (Auto) 0.1, Basophils (%) ( Auto) 1, Blood Urea Nitrogen 23H, Calcium Level 8.1L, Carbon Dioxide Level 31, Chloride Level 98, Creatinine 1.12, Eosinophils # (Auto) 0.2, Eosinophils (%) ( Auto) 2, Estimat Glomerular Filtration Rate > 60, Glucose Level 91, Hematocrit 28L, Hemoglobin 9.0#L, Lymphocytes # (Auto) 1.0, Lymphocytes (%) (Auto) 10L, Magnesium Level 1.1L, Mean Corpuscular Hemoglobin 31, Mean Corpuscular Hemoglobin Concent 33, Mean Corpuscular Volume 96, Mean Platelet Volume 10.1, Monocytes # (Auto) 1.1H, Monocytes (%) (Auto) 10, Neutrophils # (Auto) 8.2H, Neutrophils (%) (Auto) 77H, Platelet Count 501H, Potassium Level 3.7, Red Blood Count 2.89L, Red Cell Distribution Width 16.9H, Sodium Level 140, White Blood Count 10.6 04/20/16 17:15: Lab Scanned Report Transfusion Reaction Form Assessment/Plan Assessment/Plan Assess & Plan/Chief Complaint 1. Acute Respiratory Distress with recent aspiration pneumonia--back on NC and CXR stable 2. NSTEMI--cardiology following 3. Small Bowel Obstruction--S/P exp lap with SARAH and small bowel resection with reanastamosis--tolerating regular diet 4. Atrial Fibrillation with RVR--back in NSR 5. Hypomagnesemia-- Mg replacement 6. Worsening Post-op Anemia--H/H improved after transfusion, blood thinners on hold and some hematuria today, check CBC in AM 7. Weakness--continue PT 8. Urinary retention--increased urecholine dose, consult urology due to gross hematuria today Diagnosis/Problems: Clinical Quality Measures DVT/VTE Risk/Contraindication: Risk Factor Score Per Nursin RFS Level Per Nursing on Admit: 4+=Very High AIME CANO DO Apr 20, 2016 17:35
[2016-04-20] MEDS: MAGNESIUM 1 GM/100 ML IVPB 100 ML IV SCH ×3 (18:14→20:19)
[2016-04-20 21:30] VITALS: BP 120/74
[2016-04-20] MEDS: ATORVASTATIN 20 MG (LIPITOR) TABLET PO SCH (21:30)
[2016-04-21] VITALS (8 sets, daily range): BP systolic 84–117; BP diastolic 51–79
[2016-04-21] MEDS: RT-ALBUTEROL/IPRATROPIUM 3 ML (DUONEB) VIAL INH SCH ×6 (02:49→21:25)
[2016-04-21 05:58] LABS: BASOPHILS # (AUTO) 0.1 10^3/uL (0.0-0.1); BASOPHILS % (AUTO) 1 % (0-10); EOSINOPHILS # (AUTO) 0.3 10^3/uL (0.0-0.3); EOSINOPHILS % (AUTO) 3 % (0-10); LYMPHOCYTES # (AUTO) 1.3 X 10^3 (1.0-4.0); LYMPHOCYTES % (AUTO) 13 % (12-44); MEAN CORPUSCULAR HEMOGLOBIN 31 PG (25-34); MEAN CORPUSCULAR HGB CONC 32 G/DL (32-36); MEAN CORPUSCULAR VOLUME 97 FL (80-99); MONOCYTES % (AUTO) 10 % (0-12); NEUTROPHILS # (AUTO) 7.1 X 10^3 (1.8-7.8); NEUTROPHILS % (AUTO) 73 % (42-75); PLATELET COUNT 540 10^3/uL (130-400); RED BLOOD COUNT 2.55 10^6/uL (4.35-5.85); RED CELL DISTRIBUTION WIDTH 15.6 % (10.0-14.5); WHITE BLOOD COUNT 9.8 10^3/uL (4.3-11.0)
[2016-04-21] MEDS: KCL 20 MEQ TAB (K-DUR) PO SCH (06:00)
[2016-04-21 06:14] LABS: ANION GAP 10 MMOL/L (5-14); BLOOD UREA NITROGEN 28 MG/DL (7-18); BUN/CREATININE RATIO 24; CARBON DIOXIDE 30 MMOL/L (21-32); CHLORIDE 98 MMOL/L (98-107); CREATININE SERUM 1.18 MG/DL (0.60-1.30); GFR ESTIMATED > 60; GLUCOSE 89 MG/DL (70-105); MAGNESIUM 1.7 MG/DL (1.8-2.4); POTASSIUM 3.8 MMOL/L (3.6-5.0); SODIUM 138 MMOL/L (135-145)
[2016-04-21] MEDS: SUCRALFATE 1 GM (CARAFATE) TAB PO SCH ×4 (06:33→21:37)
[2016-04-21] MEDS: MULTIVIT W/MINERALS TAB (THERAGRAN M) PO SCH (06:33)
[2016-04-21] MEDS: THIAMINE 100 MG (VITAMIN B-1) TAB PO SCH (06:33)
[2016-04-21] MEDS: NYSTATIN ORAL SUSP 5 ML UDC PO SCH ×5 (06:33→23:04)
[2016-04-21] MEDS: LEVOTHYROXINE 50 MCG (LEVOTHROID) TAB PO SCH (06:33)
[2016-04-21] MEDS: BETHANECHOL 25 MG (URECHOLINE) TAB PO SCH ×4 (06:36→21:37)
[2016-04-21] MEDS: RT-BUDESONIDE NEBS 0.5 MG/2ML (PULMICORT) AMP INH SCH ×2 (07:20→21:25)
--- NOTE | 2016-04-21 07:48 | Diagnostic Imaging Report ---
INDICATION: Shortness of air. TECHNIQUE: Single view chest 4:45 AM. CORRELATION STUDY: 04/20/2016 FINDINGS: Patient's poststernotomy. Heart size, mediastinum and vasculature overall stable. Continue small effusion left lung base. Likely associated atelectasis or infiltrate left lung base. Right lung is generally clear. Right-sided central line tip projects over the SVC. Surgical changes of spinal fusion. IMPRESSION: 1. Small left pleural effusion versus pleural thickening, associated atelectasis or infiltrate left lung base stable. Dictated by: Dictated on workstation # [id number]
--- NOTE | 2016-04-21 08:21 | Cardiology Progress Note ---
Subjective Subjective/Events-last exam Patient is in bed. Continues to complain of fatigue. Denies any CP or palpitations. Review of Systems General: No Night Sweats, Fatigue Malaise HEENT: No Visual Changes, No Dysphasia, No Sore Throat Pulmonary: No Dyspnea, No Cough Cardiovascular: No: Chest Pain, Edema, Palpitations, Paroxysmal Noc. Dyspnea Gastrointestinal: No: Abdominal Pain, Nausea, Vomiting Genitourinary: No Dysuria, No Frequency Musculoskeletal: No: back pain, neck pain Neurological: : WeaknessNo: Change in speech, Confusion, Numbness Objective-Cardiology Exam Last Set of Vital Signs Vital Signs 04/16/16 04/20/16 04/21/16 04/21/16 04/21/16 04:00 21:30 00:00 02:50 07:21 Temp 98.0 Pulse 84 Resp 23 B/P 120/74 Pulse Ox 91 O2 Delivery NIV/Bilevel O2 Flow Rate 5.00 FiO2 40 Capillary Refill : I&O Intake and Output 04/21/16 00:00 Intake Total 2202 ml Output Total 1925 ml Balance 277 ml Intake Oral 2002 ml IV Total 200 ml Output Urine Total 1925 ml # Bowel Movements 3 General: Alert, Oriented X3, No Acute Distress HEENT: Atraumatic, PERRLA Neck: Supple, +2 Carotid Pulse No Bruit Lungs: Clear to Auscultation, Normal Air Movement Heart: Regular Rate, Normal S1, Normal S2 Abdomen: Normal Bowel Sounds, Soft Extremities: No Clubbing, No Cyanosis Skin: No Rashes, No Breakdown, No Significant Lesion, Other (R elbow -- 1.0 x 0.6 x 0.1 cm, 100% dessicated tissue.) Neuro: Normal Speech, Cranial Nerves 3-12 NL Psych/Mental Status: Mental Status NL, Mood NL Results Lab Laboratory Tests 04/21/16 05:45 A/P-Cardiology Admission Diagnosis Acute respiratory distress NSTEMI Hypomagnesemia Diastolic CHF Assessment/Plan Status post respiratory failure - likely combination of COPD, aspiration pneumonia, acute diastolic heart failure. Much improved now. Continue to monitor. Paroxysmal Atrial fibrillation, currently in sinus tachycardia. On metoprolol. Continue to monitor. Acute diastolic congestive heart failure: normal EF and elevated BNP, responded to diuretics well,continue to monitor. Non-ST elevation [place]: Plavix and ASA currently on hold due to ABL anemia. Continue to monitor. Possible left atrial thrombus, full anticoagulation with Lovenox is recommended , currently on hold secondary to anemia. DIAN may be recommended when more stable pulmonary mo. Patient asking to have this done by his primary aircraft engineer as an outpatient Hypomagnesemia- replace, continue to monitor. Anemia,worsening- managed by primary care physician, Dr. Stephens. Clinical Quality Measures DVT/VTE Risk/Contraindication: Risk Factor Score Per Nursin RFS Level Per Nursing on Admit: 4+=Very High DAWN OCONNELL Apr 21, 2016 08:21
[2016-04-21] MEDS ORDERED: ACETAMINOPHEN 325 MG TABLET/CAPLET (TYLENOL) PO NR (08:39)
[2016-04-21] MEDS ORDERED: diphenhydrAMINE 25 MG TAB (BENADRYL) PO NR (08:40)
[2016-04-21] MEDS ORDERED: FUROSEMIDE 40 MG/4 ML INJ (LASIX) IVP NR (08:43)
[2016-04-21] MEDS: diphenhydrAMINE 50 MG/ML INJ (BENADRYL) IVP SCH (09:35)
[2016-04-21] MEDS: ALPRAZolam 0.25 MG (XANAX) TAB PO PRN ×2 (09:36→21:35)
[2016-04-21] MEDS: NICOTINE 21 MG (NICODERM) PATCH TD SCH (09:36)
[2016-04-21] MEDS: BISACODYL 10 MG SUPP (DULCOLAX) PR SCH ×2 (09:36→21:00)
[2016-04-21] MEDS: meTOproloL SUCCINATE 50 MG (TOPROL XL) TAB PO SCH ×2 (09:37→21:37)
[2016-04-21] MEDS: PANTOPRAZOLE 40 MG/10 ML (PROTONIX) VIAL IV SCH ×2 (09:37→21:36)
[2016-04-21] MEDS: ENALAPRIL 2.5 MG (VASOTEC) TAB PO SCH (09:37)
[2016-04-21] MEDS: KCL 10 MEQ TAB (MICRO K) PO SCH (09:37)
[2016-04-21] MEDS: SPIRONOLACTONE 25 MG (ALDACTONE) TAB PO SCH (09:37)
[2016-04-21] MEDS: FUROSEMIDE 40 MG (LASIX) TAB PO SCH (09:37)
[2016-04-21] MEDS: MAGNESIUM 1 GM/100 ML IVPB 200 ML IV SCH (09:38)
[2016-04-21] MEDS: PATCH REMOVAL TP SCH (09:46)
--- NOTE | 2016-04-21 11:05 | Physical Therapy Progress Note ---
Therapy Progress Note Patient declined PT due to extreme fatigue due to decrease Hgb 7.8. Patient to receive 2 units PRBC on this date per patient report. PT to attempt visit in a.m. 1 no treatment rendered JESS LAZCANO PT Apr 21, 2016 11:05
--- NOTE | 2016-04-21 12:19 | CONSULTATION REPORT ---
DATE OF CONSULTATION: 04/21/2016 ATTENDING PHYSICIAN: Dr. Sanchez. SUMMARY: After reviewing the patient's record and interviewing him and examining him; this is a 60-year-old white man who had an exploratory laparotomy with small bowel resection and reanastomosis. He has a kind of stormy postoperative course including respirator need, acute renal failure dehydration, atrial fibrillation with RVR and STEMI VDRF with aspiration pneumonia and acute anemia, for which he is being treated appropriately and consultation with various specialists were undertaken. The patient was unable to void since the surgery, despite attempt to trial of voiding. Catheter was inserted draining clear urine at this moment. He had episodes of some gross hematuria according to him. He was started on urecholine 25 mg q.i.d. with meals and at bedtime by Dr. Sanchez still could not void. It was increased to 50 yesterday and still well tolerate because the patient has COPD and it did not affect his breathing. He is not on any Flomax. He denies any previous similar episodes. Denies voiding symptoms and he denies any medication for his prostate or bladder. PAST HISTORY: 1. Significant for the COPD. 2. High blood pressure. 3. Hyperlipidemia. 4. Hypothyroidism. MEDICATIONS: 1. He is on Lasix. 2. Vasotec. 3. Urecholine. 4. Lovenox and Clopidogrel were held. 5. He is on atorvastatin. 6. Metoprolol XL. 7. Albuterol inhaler. 8. Multivitamins. 9. Potassium chloride. 10. Spironolactone. 11. Synthroid. 12. Pantoprazole. 13. DOSES per chart. ALLERGIES: He is allergic to MORPHINE. SOCIAL HISTORY: He quit smoking 3 years ago, chews on and off tobacco. Social drinker and no illicit drugs. 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 I took care of his whole family, very nice family. PHYSICAL EXAMINATION: Vitals per chart. GENERAL: Well-nourished, well-developed, in no acute distress. HEAD: Normocephalic. ENT: Unremarkable. NECK: Supple. No bruits. CHEST: Clear, but decreased on the right side. HEART: Regular rate and rhythm, no murmur. ABDOMEN: Soft, nontender. EXTREMITIES: Lower extremity no edema or cyanosis. NEUROLOGICAL EXAM: Grossly intact. Oriented x3. SKIN: Skin is warm and dry. GENITALIA: Examination of the genitalia and rectal exam were deferred for cystoscopy tomorrow. IMPRESSION: 1. Urinary retention. BPH and/or neurogenic bladder. 2. Gross hematuria could be related to catheter. 3. Medical illnesses per history. PLAN: We will add Flomax, continue urecholine at this point, we will perform a flexible cystoscopy at bedside under local tomorrow around noon or permitting we will examine his genitalia and his rectal exam at that time and manage accordingly. We will probably give him a trial of voiding after that. The plan was fully explained to him and his . All his questions answered. Thank you for letting me participate in the care of this patient. We will follow with you. Job ID: [id number] Dictated Date: 04/21/2016 11:40:02 Artillery Maintenance Supervisor Date: 04/21/2016 12:02:30/moises
--- NOTE | 2016-04-21 12:45 | Progress Note (SOAP) ---
Subjective Subjective/Events-last exam Fwup small bowel obstruction--S/P exploratory lab with small bowel resection and reanastamosis, acute renal failure--worsened since surgery, dehydration, COPD, Atrial fibrillation with RVR, Post-op VDRF with aspiration pneumonia, NSTEMI, acute anemia. Less agitation. States BMs are dark, black looking. Objective Exam Vital Signs Date Time Temp Pulse Resp B/P Pulse Ox O2 Delivery O2 Flow Rate FiO2 04/21/16 10:28 97 3.00 04/21/16 08:00 97.7 95 20 94/53 95 Nasal Cannula 04/21/16 07:21 91 5.00 04/21/16 07:16 5.00 04/21/16 02:50 84 23 96 35.00 04/21/16 00:05 23 35.00 04/21/16 00:00 20 NIV/Bilevel 04/20/16 22:39 96 12 96 35.00 04/20/16 22:32 95 5.00 04/20/16 21:30 98.0 98 20 120/74 96 Nasal Cannula 3.00 04/20/16 20:00 5.00 04/20/16 19:49 5.00 04/20/16 19:39 5.00 04/20/16 16:30 98.1 89 18 102/60 99 Nasal Cannula 3.00 04/20/16 14:08 97 5.00 I & O 04/21/16 07:00 Intake Total 2462 ml Output Total 1575 ml Balance 887 ml Capillary Refill : General Appearance: No Apparent Distress Neck: Supple Respiratory: Lungs Clear Cardiovascular: Regular Rate, Rhythm Systolic Murmur Gastrointestinal: normal bowel sounds non tender soft Extremity: Non Tender No Calf Tenderness No Pedal Edema Neurologic/Psychiatric: Alert Oriented x3 Skin: Pallor Results Lab Laboratory Tests 04/20/16 17:15: Lab Scanned Report Transfusion Reaction Form 04/21/16 05:45: Anion Gap 10, BUN/Creatinine Ratio 24, Basophils # (Auto) 0.1, Basophils (%) ( Auto) 1, Blood Urea Nitrogen 28H, Calcium Level 8.0L, Carbon Dioxide Level 30, Chloride Level 98, Creatinine 1.18, Eosinophils # (Auto) 0.3, Eosinophils (%) ( Auto) 3, Estimat Glomerular Filtration Rate > 60, Glucose Level 89, Hematocrit 25L, Hemoglobin 7.8L, Lymphocytes # (Auto) 1.3, Lymphocytes (%) (Auto) 13, Magnesium Level 1.7L, Mean Corpuscular Hemoglobin 31, Mean Corpuscular Hemoglobin Concent 32, Mean Corpuscular Volume 97, Mean Platelet Volume 10.0, Monocytes # (Auto) 1.0, Monocytes (%) (Auto) 10, Neutrophils # (Auto) 7.1, Neutrophils (%) (Auto) 73, Platelet Count 540H, Potassium Level 3.8, Red Blood Count 2.55L, Red Cell Distribution Width 15.6H, Sodium Level 138, White Blood Count 9.8 Assessment/Plan Assessment/Plan Assess & Plan/Chief Complaint 1. Acute Respiratory Distress with recent aspiration pneumonia--back on NC and CXR stable 2. NSTEMI--cardiology following 3. Small Bowel Obstruction--S/P exp lap with SARAH and small bowel resection with reanastamosis--tolerating regular diet 4. Atrial Fibrillation with RVR--back in NSR 5. Hypomagnesemia-- Mg replacement 6. Worsening Post-op Anemia--repeat transfusion of 2u pRBCs, blood thinners on hold and some hematuria resolved, check CBC in AM, discussed with Dr. Stephens and if H/H drops again will consider EGD 7. Weakness--continue PT 8. Urinary retention--increased urecholine dose, consult urology Diagnosis/Problems: Clinical Quality Measures DVT/VTE Risk/Contraindication: Risk Factor Score Per Nursin RFS Level Per Nursing on Admit: 4+=Very High AIME CANO DO Apr 21, 2016 12:45
[2016-04-21] MEDS ORDERED: NS IV 500 ML 500 ML ONE (12:56)
--- NOTE | 2016-04-21 15:12 | Cardiology Progress Note ---
Subjective Subjective/Events-last exam Patient is laying down in bed, no new complaint, hemoglobin is worse. Denied any chest pain. Review of Systems General: No Chills, No Night Sweats, No Fatigue, No Malaise, No Appetite, No Other HEENT: No Head Aches, No Visual Changes, No Eye Pain, No Ear Pain, No Dysphasia , No Sinus Congestion, No Post Nasal Drip, No Sore Throat, No Other Pulmonary: DyspneaNo Cough, No Pleuritic Chest Pain, No Other Cardiovascular: No: Chest Pain, Edema, Lt Headedness, Orthopnea, Other, Palpitations, Paroxysmal Noc. Dyspnea Objective-Cardiology Exam Last Set of Vital Signs Vital Signs 04/16/16 04/21/16 04/21/16 04/21/16 04:00 08:00 10:28 13:36 Temp 98.9 Pulse 90 Resp 20 B/P 87/51 Pulse Ox 98 O2 Delivery Nasal Cannula O2 Flow Rate 3.00 FiO2 40 Capillary Refill : I&O Intake and Output 04/21/16 00:00 Intake Total 2202 ml Output Total 1925 ml Balance 277 ml Intake Oral 2002 ml IV Total 200 ml Output Urine Total 1925 ml # Bowel Movements 3 General: Alert, Oriented X3, No Acute Distress HEENT: Atraumatic, PERRLA Neck: Supple, +2 Carotid Pulse No Bruit Lungs: Clear to Auscultation, Normal Air Movement Heart: Regular Rate, Normal S1, Normal S2 Abdomen: Normal Bowel Sounds, Soft Extremities: No Clubbing, No Cyanosis Skin: No Rashes, No Breakdown, No Significant Lesion, Other (R elbow -- 1.0 x 0.6 x 0.1 cm, 100% dessicated tissue.) Neuro: Normal Speech, Cranial Nerves 3-12 NL Psych/Mental Status: Mental Status NL, Mood NL Results Lab Laboratory Tests 04/21/16 05:45 A/P-Cardiology Admission Diagnosis Acute respiratory distress NSTEMI Hypomagnesemia Diastolic CHF Assessment/Plan Status post respiratory failure - likely combination of COPD, aspiration pneumonia, acute diastolic heart failure, better at this point. Continue to monitor. Anemia, received 2 units of packed RBCs with improvement then a drop again this morning, he will receive another unit of blood, followed by Dr. Stephens. Paroxysmal Atrial fibrillation, currently in sinus tachycardia. On metoprolol, cannot tolerate oral anticoagulation due to the severe anemia and blood transfusion. Acute diastolic congestive heart failure: normal EF and elevated BNP, responded to diuretics well,continue to monitor. Non-ST elevation OR: Plavix and ASA currently on hold due to anemia, continue to monitor. Possible left atrial thrombus, full anticoagulation with Lovenox is recommended , currently on hold secondary to anemia. DIAN may be recommended when more stable pulmonary mo. Patient asking to have this done by his primary metal tube cutter as an outpatient Chronic hypomagnesemia, has been on magnesium as an outpatient, continue to monitor. Clinical Quality Measures DVT/VTE Risk/Contraindication: Risk Factor Score Per Nursin RFS Level Per Nursing on Admit: 4+=Very High PAYTON BUTCHER MD Apr 21, 2016 15:12
--- NOTE | 2016-04-21 17:57 | Progress Note (SOAP) ---
Subjective Subjective/Events-last exam doing ok. still anemic and having dark BM's. off anticoagulants. Objective Exam Vital Signs Date Time Temp Pulse Resp B/P Pulse Ox O2 Delivery O2 Flow Rate FiO2 04/21/16 16:09 98.3 87 18 91/55 97 04/21/16 16:00 98.6 89 18 89/51 97 Nasal Cannula 3.00 04/21/16 15:44 98.6 89 18 89/51 97 04/21/16 15:44 98.6 89 18 89/51 97 04/21/16 15:18 98.2 87 20 84/53 97 04/21/16 13:36 98.9 90 20 87/51 98 04/21/16 13:05 98.4 91 20 91/55 99 04/21/16 10:28 97 3.00 04/21/16 08:00 97.7 95 20 94/53 95 Nasal Cannula 04/21/16 07:21 91 5.00 04/21/16 07:16 5.00 04/21/16 02:50 84 23 96 35.00 04/21/16 00:05 23 35.00 04/21/16 00:00 20 NIV/Bilevel 04/20/16 22:39 96 12 96 35.00 04/20/16 22:32 95 5.00 04/20/16 21:30 98.0 98 20 120/74 96 Nasal Cannula 3.00 04/20/16 20:00 5.00 04/20/16 19:49 5.00 04/20/16 19:39 5.00 I & O 04/21/16 07:00 Intake Total 2462 ml Output Total 1575 ml Balance 887 ml Capillary Refill : General Appearance: No Apparent Distress HEENT: PERRL/EOMI Neck: Full Range of Motion Respiratory: Chest Non Tender Decreased Breath Sounds Rhonci Cardiovascular: Regular Rate, Rhythm Gastrointestinal: normal bowel sounds non tender soft Extremity: Normal Capillary Refill Neurologic/Psychiatric: Alert Oriented x3 Skin: Normal Color Lymphatic: No Adenopathy Results Lab Laboratory Tests 04/21/16 05:45: Anion Gap 10, BUN/Creatinine Ratio 24, Basophils # (Auto) 0.1, Basophils (%) ( Auto) 1, Blood Urea Nitrogen 28H, Calcium Level 8.0L, Carbon Dioxide Level 30, Chloride Level 98, Creatinine 1.18, Eosinophils # (Auto) 0.3, Eosinophils (%) ( Auto) 3, Estimat Glomerular Filtration Rate > 60, Glucose Level 89, Hematocrit 25L, Hemoglobin 7.8L, Lymphocytes # (Auto) 1.3, Lymphocytes (%) (Auto) 13, Magnesium Level 1.7L, Mean Corpuscular Hemoglobin 31, Mean Corpuscular Hemoglobin Concent 32, Mean Corpuscular Volume 97, Mean Platelet Volume 10.0, Monocytes # (Auto) 1.0, Monocytes (%) (Auto) 10, Neutrophils # (Auto) 7.1, Neutrophils (%) (Auto) 73, Platelet Count 540H, Potassium Level 3.8, Red Blood Count 2.55L, Red Cell Distribution Width 15.6H, Sodium Level 138, White Blood Count 9.8 Assessment/Plan Assessment/Plan Assess & Plan/Chief Complaint respiratory insufficiency s/p SARAH and SBR. continue aggressive pulmonary support with bipap as needed. ambulate. diet as tolerated. plavix held due to blood loss anemia. urology for urinary retention. EGD in am for dark tarry stools and hx of PUD Diagnosis/Problems: Clinical Quality Measures DVT/VTE Risk/Contraindication: Risk Factor Score Per Nursin RFS Level Per Nursing on Admit: 4+=Very High BRITTANY CHAPA MD Apr 21, 2016 5:57 pm
[2016-04-21] MEDS ORDERED: ALFUZOSIN HCL 10 MG TAB (UROXATRAL) PO SCH (18:00)
[2016-04-21] MEDS: HYDROcodone/APAP 7.5 MG/325 MG (LORTAB, LORCET PLUS) TABLET PO PRN (21:36)
[2016-04-21] MEDS: ATORVASTATIN 20 MG (LIPITOR) TABLET PO SCH (21:37)
[2016-04-22] VITALS: BP 104/59
[2016-04-22] MEDS: RT-ALBUTEROL/IPRATROPIUM 3 ML (DUONEB) VIAL INH SCH ×3 (02:49→11:43)
[2016-04-22] MEDS: KCL 20 MEQ TAB (K-DUR) PO SCH (06:00)
[2016-04-22] MEDS: LEVOTHYROXINE 50 MCG (LEVOTHROID) TAB PO SCH (06:10)
[2016-04-22] MEDS: MULTIVIT W/MINERALS TAB (THERAGRAN M) PO SCH (07:00)
[2016-04-22] MEDS: THIAMINE 100 MG (VITAMIN B-1) TAB PO SCH (07:00)
[2016-04-22 07:07] LABS: BASOPHILS # (AUTO) 0.1 10^3/uL (0.0-0.1); BASOPHILS % (AUTO) 1 % (0-10); EOSINOPHILS # (AUTO) 0.5 10^3/uL (0.0-0.3); EOSINOPHILS % (AUTO) 5 % (0-10); LYMPHOCYTES # (AUTO) 1.3 X 10^3 (1.0-4.0); LYMPHOCYTES % (AUTO) 15 % (12-44); MEAN CORPUSCULAR HEMOGLOBIN 30 PG (25-34); MEAN CORPUSCULAR HGB CONC 31 G/DL (32-36); MEAN CORPUSCULAR VOLUME 95 FL (80-99); MEAN PLATELET VOLUME 10.2 FL (7.4-10.4); MONOCYTES % (AUTO) 12 % (0-12); NEUTROPHILS # (AUTO) 5.8 X 10^3 (1.8-7.8); NEUTROPHILS % (AUTO) 67 % (42-75); PLATELET COUNT 517 10^3/uL (130-400); RED BLOOD COUNT 2.89 10^6/uL (4.35-5.85); RED CELL DISTRIBUTION WIDTH 16.6 % (10.0-14.5); WHITE BLOOD COUNT 8.6 10^3/uL (4.3-11.0)
--- NOTE | 2016-04-22 07:10 | Progress Note-Post Operative ---
Post-Operative Progess Note Pre-Operative Diagnosis URINE RETENTION AND HEMATURIA Post-Operative Diagnosis SAME Post-Op Procedure Note Date of Procedure: Apr 22, 2016 Name of Procedure: CYSTOSCOPY Anesthesia Type LOCAL AIXA OLIVERA MD Apr 22, 2016 7:10 am
--- NOTE | 2016-04-22 07:10 | Progress Note-Pre Operative ---
Pre-Operative Progress Note H&P Reviewed The H&P was reviewed, patient examined and no changes noted. Date H&P Reviewed: Apr 22, 2016 Time H&P Reviewed: 07:09 Pre-Operative Diagnosis: URINE RETENTION AND HEMATURIA AIXA OLIVERA MD Apr 22, 2016 7:10 am
[2016-04-22 07:25] LABS: ANION GAP 8 MMOL/L (5-14); BLOOD UREA NITROGEN 26 MG/DL (7-18); BUN/CREATININE RATIO 22; CALCIUM 8.2 MG/DL (8.5-10.1); CARBON DIOXIDE 28 MMOL/L (21-32); CHLORIDE 102 MMOL/L (98-107); CREATININE SERUM 1.16 MG/DL (0.60-1.30); GFR ESTIMATED > 60; GLUCOSE 90 MG/DL (70-105); MAGNESIUM 1.7 MG/DL (1.8-2.4); POTASSIUM 4.3 MMOL/L (3.6-5.0); SODIUM 138 MMOL/L (135-145)
[2016-04-22] MEDS ORDERED: LIDOCAINE UROJET 2% GEL 10 ML PKG ONE (07:33)
[2016-04-22] MEDS: NYSTATIN ORAL SUSP 5 ML UDC PO SCH (07:41)
[2016-04-22] MEDS: SUCRALFATE 1 GM (CARAFATE) TAB PO SCH (07:41)
--- NOTE | 2016-04-22 07:41 | Cardiology Progress Note ---
Subjective Subjective/Events-last exam patient is laying down in bed. Denied any chest pain, asking to go home, feeling better. Review of Systems General: No Chills, No Night Sweats, No Fatigue, No Malaise, No Appetite, No Other HEENT: No Head Aches, No Visual Changes, No Eye Pain, No Ear Pain, No Dysphasia , No Sinus Congestion, No Post Nasal Drip, No Sore Throat, No Other Pulmonary: No Dyspnea, No Cough, No Pleuritic Chest Pain, No Other Cardiovascular: No: Chest Pain, Edema, Lt Headedness, Orthopnea, Other, Palpitations, Paroxysmal Noc. Dyspnea Objective-Cardiology Exam Last Set of Vital Signs Vital Signs 04/16/16 04/22/16 04/22/16 04/22/16 04:00 00:00 02:49 04:06 Temp 97.5 Pulse 78 Resp 20 B/P 104/59 Pulse Ox 97 O2 Delivery NIV/Bilevel O2 Flow Rate 35.00 FiO2 40 Capillary Refill : I&O Intake and Output 04/22/16 00:00 Intake Total 3672 ml Output Total 2350 ml Balance 1322 ml Intake Oral 3372 ml IV Total 300 ml Output Urine Total 2350 ml # Bowel Movements 5 General: Alert, Oriented X3, No Acute Distress HEENT: Atraumatic, PERRLA Neck: Supple, +2 Carotid Pulse No Bruit Lungs: Clear to Auscultation, Normal Air Movement Heart: Regular Rate, Normal S1, Normal S2 Abdomen: Normal Bowel Sounds, Soft Extremities: No Clubbing, No Cyanosis Skin: No Rashes, No Breakdown, No Significant Lesion, Other (R elbow -- 1.0 x 0.6 x 0.1 cm, 100% dessicated tissue.) Neuro: Normal Speech, Cranial Nerves 3-12 NL Psych/Mental Status: Mental Status NL, Mood NL Results Lab Laboratory Tests 04/22/16 06:20 A/P-Cardiology Admission Diagnosis Acute respiratory distress NSTEMI Hypomagnesemia Diastolic CHF Assessment/Plan Status post respiratory failure - likely combination of COPD, aspiration pneumonia, acute diastolic heart failure, better at this point, continue current medications and monitor. Anemia, Status post multiple transfusions, H&H are better today, still having some anemia, followed and managed by primary care physician and Dr. Stephens. Paroxysmal Atrial fibrillation, currently in sinus tachycardia. On metoprolol, cannot tolerate oral anticoagulation due to the severe anemia and blood transfusion. Acute diastolic congestive heart failure: normal EF and elevated BNP, responded to diuretics well, maintained on Toprol, enalapril and spironolactone and tolerating it well. Non-ST elevation [place]: Plavix and ASA currently on hold due to anemia, continue to monitor. Possible left atrial thrombus, full anticoagulation with Lovenox is recommended , currently on hold secondary to anemia. DIAN may be recommended when more stable pulmonary mo. Patient asking to have this done by his primary chemical laboratory technician as an outpatient Chronic hypomagnesemia, has been on magnesium as an outpatient, continue to monitor. Clinical Quality Measures DVT/VTE Risk/Contraindication: Risk Factor Score Per Nursin RFS Level Per Nursing on Admit: 4+=Very High PAYTON BUTCHER MD Apr 22, 2016 07:40
[2016-04-22] MEDS: BETHANECHOL 25 MG (URECHOLINE) TAB PO SCH (07:44)
[2016-04-22 08:00] VITALS: BP 98/62
[2016-04-22] MEDS: RT-BUDESONIDE NEBS 0.5 MG/2ML (PULMICORT) AMP INH SCH (08:58)
[2016-04-22] MEDS ORDERED: FINASTERIDE (PROSCAR) 5 MG TAB PO SCH (09:00)
[2016-04-22] MEDS: BISACODYL 10 MG SUPP (DULCOLAX) PR SCH (09:00)
[2016-04-22] MEDS: ALPRAZolam 0.25 MG (XANAX) TAB PO PRN (09:34)
[2016-04-22] MEDS: NICOTINE 21 MG (NICODERM) PATCH TD SCH (09:34)
[2016-04-22] MEDS: PANTOPRAZOLE 40 MG/10 ML (PROTONIX) VIAL IV SCH (09:34)
[2016-04-22] MEDS: ENALAPRIL 2.5 MG (VASOTEC) TAB PO SCH (09:34)
[2016-04-22] MEDS: meTOproloL SUCCINATE 50 MG (TOPROL XL) TAB PO SCH (09:34)
[2016-04-22] MEDS: PATCH REMOVAL TP SCH (09:36)
--- NOTE | 2016-04-22 10:13 | Conscious Sedation/ASA ---
Conscious Sedation Pre-Proced Time Reviewed: 07:09 ASA Class: 3 Airway Mallampati Classification: (grindstone appropriate class) I. II. III, IV Lungs Heart ASA score ASA 1: a normal healthy patient ASA 2: a patient with a mild systemic disease (mid diabetes, controlled hypertension, obesity ASA 3: a patient with a severe systemic disease that limits activity (angina , COPD, prior Myocardial infarction) ASA 4: a patient with an incapacitating disease that is a constant threat to life (CHF, renal failure) ASA 5: a moribund patient not expected to survive 24 hrs. (ruptured aneurysm) ASA 6: a declared brain patient whose organs are being harvested. For emergent operations, add the letter E after the classification Grade 2 Sedation Plan: Analgesia, Amnesia, Plan communicated to team members, Discussed options with patient/fam, Discussed risks with patient/fam Note The patient is an appropriate candidate to undergo the planned procedure, sedation, and anesthesia. The patient immediately re-assessed prior to indication. BRITTANY CHAPA MD Apr 22, 2016 10:13 am
--- NOTE | 2016-04-22 10:14 | Progress Note-Pre Operative ---
Pre-Operative Progress Note H&P Reviewed The H&P was reviewed, patient examined and no changes noted. Date H&P Reviewed: Apr 22, 2016 Time H&P Reviewed: 07:09 Pre-Operative Diagnosis: upper GI bleed BRITTANY CHAPA MD Apr 22, 2016 10:14 am
--- NOTE | 2016-04-22 11:50 | Physical Therapy Daily Note ---
PT Daily Note-Current Subjective Pt sitting in recliner upon arrival. Pt requested to walk during PT tx. Pain Numeric Pain Scale: 5-Moderate Pain Location: Dorsal Location Body Site: Back Pain Description: Ache Comment: Pt pain is from brad in back & isn't new to hospital visit. Mental Status Patient Orientation: Person, Place, Time, Situation Attachments: Oxygen Pt is on 3L of O2 during tx. Transfers Functional [place] Measure 0=Not Assessed/NA 4=Minimal Assistance 1=Total Assistance 5=Supervision or Setup 2=Maximal Assistance 6=Modified [place] 3=Moderate Assistance 7=Complete IndependenceIRFPAI Quality Coding Scale 6 Independent with activity with or without an assistive device 5 Patient requires set up or clean up by helper. Patient completes activity by themselves 4 Supervision or touching assist ([facility]). [place] provide cues , steadying assist 3 The helper provides less than half the effort to complete the activity 2 The helper provides more than half the effort to complete the activity 1 Dependent. The helper does all the effort to complete an activity 7 Patient refused to complete or attempt activity 9 The patient did not perform the activity before the current illness or injury 88 Not attempted due to Medical conditions or safety concerns Transfers (B, C, W/C) (FIM): 5 Scootin Rollin Supine to/from Sit: 5 Sit to/from Stand: 5 Bed to/from Chair: 5 Weight Bearing Weight Bearing Restriction: Full Weight Bearing Location Restriction: LE Bilateral Gait Training Gait (FIM): 4 Distance (FIM): 3=150 ft Distance: 300' Gait Level of Assist: 4 Gait Persons Needed: 1 Gait Assistive Device: FWW Pt walks with a slight meandering gait pattern but no LOB. Sp reports pt has recently had local anesthesia for progress but seems to be doing fine. Treatments Pt ambulates in hallway with FWW at [facility] for safety. Pt uses 3L of O2 during ambulation. Assessment Current Status: Good Progress Pt is motivated and very willing to get stronger and discharge. PT Short Term Goals Short Term Goals Time Frame: Apr 23, 2016 Transfers (B,C,W/C) (FIM): 6 PT Outside Sales Representative Goals Outside Sales Representative Goals PT Alf Goals Time Frame: Apr 30, 2016 Transfers (B,C,W/C) (FIM): 6 Gait (FIM): 6 Gait distance (FIM): 3=150 ft Distance: 150 Gait Level of Assist: 6 Gait Assistive Device: FWW Stairs (FIM): 5 # of Steps: 4 Stairs Level Of Assist: 6 PT Plan Problem List Problem List: Activity Tolerance, Functional Strength, Safety, Balance, Gait Treatment/Plan Treatment Plan: Continue Plan of Care Treatment Plan: Bed Mobility, Education, Functional Activity Kris, Functional Strength, Gait, Safety, Therapeutic Exercise, Transfers Treatment Duration: Apr 30, 2016 Visits Per Week: 5-6 Safety Risks/Education Patient Education: Gait Training, Correct Positioning, Safety Issues Teaching Recipient: Patient, Significant Other Teaching Methods: Discussion Response to Teaching: Verbalize Understanding Time/GCodes Time In: 1120 Time Out: 1140 Total Billed Treatment Time: 20 Total Billed Treatment visit, GT (20m) BENITO LUCAS PTA Apr 22, 2016 11:49
[2016-04-22] MEDS: HURRICAINE EXT TUBE (BENZOCAINE) XX PRN ×2 (15:05→15:53)
[2016-04-22] MEDS ORDERED: MIDAZOLAM 2 MG/2 ML (VERSED) VIAL ONE ×5 (15:06→15:07)
[2016-04-22] MEDS ORDERED: fentaNYL INJECTION 100 MCG/2 ML AMP ONE (15:06)
[2016-04-22] MEDS ORDERED: LIDOCAINE JELLY 2% (XYLOCAINE) 5 ML TUBE ONE (15:06)
[2016-04-22] MEDS ORDERED: HURRICAINE EXT TUBE (BENZOCAINE) ONE (15:07)
[2016-04-22] MEDS ORDERED: NS IV 500 ML 500 ML IV PRN (15:10)
[2016-04-22] MEDS: fentaNYL INJECTION 100 MCG/2 ML AMP IVP PRN ×3 (15:10→15:55)
[2016-04-22] MEDS: MIDAZOLAM 2 MG/2 ML (VERSED) VIAL IVP PRN ×5 (15:12→15:57)
[2016-04-22] MEDS ORDERED: FLUMAZENIL (ROMAZICON) 0.1 MG/ML 5 ML VIAL INJ PRN (16:00)
[2016-04-22] MEDS ORDERED: NALOXONE 0.4 MG/ML 1 ML (NARCAN) VIAL IVP PRN (16:00)
--- NOTE | 2016-05-03 08:47 | OPERATIVE REPORT ---
PROCEDURE PHYSICIAN: BRITTANY STEPHENS DATE OF PROCEDURE: 04/22/2016 ATTENDING PRIMARY CARE PHYSICIAN: Dr. Mary Jane Sanchez. PREOPERATIVE DIAGNOSIS: Upper gastrointestinal bleed. POSTOPERATIVE DIAGNOSIS: Upper gastrointestinal bleed. POSTOPERATIVE DIAGNOSES: 1. Reflux esophagitis, class B. 2. Small hiatal hernia, approximately 2 cm in size. 3. Moderate to severe gastritis with no active bleeding identified. 4. 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 PROCEDURE: EGD with biopsy. SURGEON: Dr. Stephens. ANESTHESIA: Conscious sedation. ESTIMATED BLOOD LOSS: Minimal. FINDINGS: 1. Reflux esophagitis, class B. 2. Small hiatal hernia, approximately 2 cm in size. 3. A diffuse gastritis; however, no formal ulcers, polyps or any neoplasms identified, as well as no active bleeding. 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 There was no distal obstruction, as well as no active bleeding sources for the pylorus and duodenum as well. DISPOSITION: The patient tolerated the procedure well. Mr. Kraig Petersen is a 60-year-old male known to us. We had seen him in the past for a [place] implantable catheter placement for frequent IV draws as well as hypomagnesemia. This gentleman has been hypomagnesemic for some time requiring twice-weekly IV magnesium infusion. This gentleman also has a known history of bilateral inguinal hernias which are reducible. He was admitted on 03/28/2016 for electrolyte abnormalities as well as hypomagnesemia and chronic renal insufficiency with elevated BUN and creatinine. He also had fluid retention and worsening issues with COPD. He also developed abdominal distention, as well as nausea and vomiting and found to have some form of bowel obstruction. We will proceed with conservative management with IV fluids and bowel rest; however, he continued to have recurrent issues with abdominal distention and nausea and vomiting. We then proceeded with Gastrografin small bowel follow-through which again showed signs consistent of a small bowel obstruction. We did again proceed with conservative management due to his medical comorbidities, with bowel rest and NG tube decompression and he was able to have some flatus as well as small bowel movement and the NG tube was removed and he had recurrence of abdominal distention immediately. On 04/04/2016 he underwent a diagnostic laparoscopy and lysis of adhesions, as well as small bowel resection and anastomosis. Since his surgery, he has had a tumultuous course due to his other medical comorbidities including and mostly pertaining to respiratory failure. He has been sent to the general surgical floor as well as inpatient rehabilitation; however, due to respiratory distress, was sent back to the ICU on 2 separate occasions. He also does have a history of atrial fibrillation as well and was on anticoagulation before. He continued to do well and was able to have bowel function and was started on a clear liquid diet and advanced. Again his gastrointestinal tract is functional; however, he had recurrent issues with shortness of breath. He continued to improve and was sent to the general surgical floor again. He did well and continues to do well; however, did develop anemia on 2 different occasions even after a blood transfusion. He does have a history of peptic ulcer disease and underwent exploratory laparotomy and surgical hemostasis. He was placed on high anticoagulation due to his atrial fibrillation, as well as high stroke as well as coronary artery disease risk including Plavix and Lovenox. He has also noticed some dark tarry stools. PROCEDURE: The patient was brought to the endoscopy suite, laid in left lateral decubitus position with the head slightly elevated. After adequate IV pain and sedative medications and conscious sedation anesthesia, the mouthpiece was applied. The endoscope was placed in the mouth, visualizing the pharynx and hypopharyngeal region. Vocal cords, epiglottis and vallecula identified and appeared to be normal. The endoscope was then gently intubated into the esophageal opening and the esophagus insufflated. The endoscope was then advanced through the first, second, and 3rd portions esophagus. At the level of the GE junction, there was a reflux esophagitis, class B. There was some petechiae in this region consistent with a distal esophagitis; however, no active bleeding. A biopsy was taken with forceps and electrocautery with visualization of good hemostasis. The endoscope was then easily advanced into the stomach and endoscope retroflexed visualizing a small hiatal hernia, approximately 2 cm in size. There was a diffuse moderate to severe gastritis; however, there was no active bleeding sources identified. 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 The endoscope was then advanced through the pylorus and into the first and second portions of duodenum which appeared normal, again with no active bleeding identified, as well as no ulcerations. The endoscope was then slowly withdrawn while taking a second look and suctioning of residual air with no additional findings. The patient tolerated the procedure well. We will continue with medical management with monitoring his hemoglobin and hematocrit, as well as Protonix 40 mg IV b.i.d. as well as Carafate 1 gram q.i.d. We will also get a serum gastrin level if this inconclusive and he would need a secretin stimulation test. Job ID: [id number] Dictated Date: 04/22/2016 15:42:38 Scuba Diving Teacher Date: 04/24/2016 23:52:45 / tbk <Dictated by BRITTANY STEPHENS MD> <Electronically signed by BRITTANY STEPHENS MD> 04/25/16 [id number]
--- NOTE | 2016-05-06 16:10 | OPERATIVE REPORT ---
PROCEDURE PHYSICIAN: AIXA OLIVERA DATE OF PROCEDURE: 04/22/2016 PREOPERATIVE DIAGNOSES: 1. Urinary retention. 2. Gross hematuria. POSTOPERATIVE DIAGNOSES: 1. Urinary retention. 2. Gross hematuria. OPERATION: Cystoscopy. SURGEON: Dr. Olivera. ANESTHESIA: Local. COMPLICATIONS: None. PROCEDURE: With the patient supine in his bed, after removing the Helms catheter, the urethra was infiltrated with 2% lidocaine jelly. Penile clamp was applied. This was then removed and a flexible cystoscope was introduced under vision. The anterior urethra was normal. No stricture. The prostate was mildly enlarged with mild bladder neck obstruction. The bladder was entered, revealed 1+ trabeculation of the wall, catheter cystitis. No foreign body, bladder tumor, stone visualized. Ureteric orifice is normal in shape, site and configuration with clear efflux. The cystoscope was confirmed in antegrade fashion and the cystoscope was removed. The patient tolerated the procedure and anesthesia well and remained in his bed in stable condition. Examination of the genitalia revealed a very large left inguinal scrotal hernia with normal testicle but decreased in size. On the right side, there was another inguinal hernia, not as big at all and also the testicle was same. Rectal exam revealed a flat to 1+ benign, nontender, elastic prostate. PLAN: On him is to give him a trial of voiding. If he fails after 2 straight catheter, we will put the catheter back in and give a chance for the Flomax to work. We will keep him on the urecholine and increase ambulation. I am pretty confident that he will be able to void on his own as he gets more an active and with the medication help. Job ID: [id number] Dictated Date: 04/22/2016 08:38:26 Dairy Management Specialist Date: 04/22/2016 10:14:52 / ilf <Dictated by AIXA OLIVERA MD> <Electronically signed by AIXA OLIVERA MD> 04/23/16 [id number]
--- NOTE | 2016-05-11 13:03 | History & Physicial ---
History of Present Illness History of Present Illness Reason for visit/HPI This is a 61 year old male who was originally admitted to acute care after a small bowel obstruction with post-op complications. He was admitted to acute rehab but had respiratory distress so he had to be placed on BIPAP and re- admitted to the ICU. He was found to have an acute non-STEMI. Date of Admission Apr 14, 2016 at 20:48 I consulted on this patient on 05/11/16 12:58 Attending Physician Mary Jane Sanchez DO Admitting Physician Mary Jane Sanchez DO Consult Allergies and Home Medications Allergies Coded Allergies: morphine (Verified Adverse Reaction, Intermediate, CONFUSION, 12/04/14) Home Medications Acetaminophen 325 Mg Tablet, 650 MG PO MoTh, (Reported) Alfuzosin HCl 10 Mg Tab.er.24h, 10 MG PO DAILY@1800, #30 Prescribed by: MARY JANE SANCHEZ on 04/29/16 1146 Aspirin 81 Mg Tabec, 81 MG PO Q48H, (Reported) Atorvastatin Calcium 20 Mg Tablet, 20 MG PO DAILY, #30 Prescribed by: MARY JANE SANCHEZ on 04/29/16 1146 Bethanechol Chloride 25 Mg Tablet, 50 MG PO ACHS, #120 Prescribed by: MARY JANE SANCHEZ on 04/29/16 1146 Diphenhydramine HCl 50 Mg/1 Ml Vial, 25 MG IV MoTh, (Reported) Enalapril Maleate 2.5 Mg Tablet, 2.5 MG PO DAILY, #30 Prescribed by: MARY JANE SANCHEZ on 04/29/16 1146 Fluticasone Propionate 9.9 Ml [place].susp, 1 SPR NS BID PRN for ALLERGIES, ( Reported) Furosemide 40 Mg Tablet, 80 MG PO Q48H, (Reported) TAKES 2 (40MG) TABLETS Hydrocodone/Acetaminophen 1 Each Tablet, 1 TAB PO Q4H PRN for PAIN, (Reported) Ipratropium/Albuterol Sulfate 3 Ml Ampul.neb, 3 ML IH QID, (Reported) Levothyroxine Sodium 50 Mcg Tablet, 50 MCG PO DAILY, (Reported) Magnesium Sulfate/D5w 1 Gm/100 Ml Piggyback, 2 GM IV MoTh, (Reported) Metoprolol Tartrate 100 Mg Tablet, 100 MG PO BID, (Reported) Multivitamin 1 Each Tablet, 1 TAB PO DAILY, (Reported) Omeprazole 40 Mg Capsule.dr, 40 MG PO BID, #60 Prescribed by: MARY JANE SANCHEZ on 04/29/16 1146 Potassium Chloride 20 Meq Tab.er.prt, 30 MEQ PO Q48H, (Reported) TAKES 1 & 1/2 (20MEQ) TABLET Spironolactone 25 Mg Tablet, 25 MG PO DAILY, (Reported) Sucralfate 1 Gm Tablet, 1 GM PO ACHS, #120 Prescribed by: MARY JANE SANCHEZ on 04/29/16 1146 Vitamin B Complex 1 Each Tablet, 100 MG PO DAILY, (Reported) [Finasteride] 5 MG TAB, 5 MG PO DAILY, #30 Prescribed by: MARY JANE SANCHEZ on 04/29/16 1146 Past Tlclmny-Lmkpjf-Pajjrk Hx Patient Social History Alcohol Use: Occasionally Uses Recreational Drug Use: No (TOBACCO) Smoking Status: Former Smoker Former smoker/When Quit: May 08, 2014 Type Used: Cigarettes Physical Abuse Screen: No Sexual Abuse: No Recent Foreign Travel: No Contact w/other who traveled: No Recent Hopitalizations: Yes Recent Infectious Disease Expo: No Immunizations Up To Date Tetanus Booster (TDap): Unknown Date of Pneumonia Vaccine: Nov 21, 2015 Date of Influenza Vaccine: Nov 21, 2015 Surgeries HX Surgeries: Yes (Left/right carotid, back (rods), neck sx, right leg, left ankle) Surgeries: CABG, Orthopedic, Vascular Surgery Respiratory Hx Respiratory Disorders: Yes (COPD, Home 02 at 2.5L ) Cardiovascular Hx Cardiovascular Disorders: Yes (CABG nov 2014, hypomagnesemia, low sodium level) Cardiac Disorders: Coronary Artery Disease, Hypertension Neurological Hx Neurological Disorders: No Reproductive System Hx Reproductive Disorders: No Sexually Transmitted Disease: No HIV/AIDS: No Genitourinary Hx Genitourinary Disorders: No Gastrointestinal Hx Gastrointestinal Disorders: No (inguinal hernia) Gastrointestinal Disorders: Gastroesophageal Reflux, Gastrointestinal Bleed, Obstructive Bowel Musculoskeletal Hx Musculoskeletal Disorders: Yes Musculoskeletal Disorders: Back Injury, Chronic Back Pain Endocrine Hx Endocrine Disorders: No HEENT HX ENT Disorders: Yes HEENT Disorders: Cataract Loss of Vision: Denies Hearing Impairment: Denies Cancer Hx Cancer: Yes Cancer: Skin Psychosocial Hx Psychiatric Problems: No Integumentary HX Skin/Integumentary Disorder: No Blood Transfusions Hx Blood Disorders: No Adverse Reaction to a Blood Tr: No Family Medical History Significant Family History: No Pertinent Family Hx Family Hx: Diabetes mellitus 19 FATHER 19 MOTHER FH: COPD (chronic obstructive pulmonary disease) 19 MOTHER Hypertension 19 FATHER 19 MOTHER Prostate cancer 19 FATHER Constitutional: weakness EENTM: No blurred vision, No dental problems, No double vision, No ear discharge, No ear pain, No epistaxis, No eye pain, No hearing loss, No hoarseness, No mouth pain, No mouth swelling, No no symptoms reported, No nose congestion, No nose pain, No other, No see HPI, No tearing, No throat pain, No throat swelling, No vision loss Respiratory: short of breath Cardiovascular: No no symptoms reported, No see HPI, No chest pain, No edema, No Hx of Intervention, No palpitations, No syncope, No vascular heart diseas, No other Gastrointestinal: No RUQ, No LUQ, No RLQ, No LLQ, No no symptoms reported, No see HPI, No abdominal pain, No constipation, No diarrhea, No dysphagia, No hematemesis, No heartburn, No jaundice, No loss of appetite, No melena, No nausea, No vomiting, No other Genitourinary: No no symptoms reported, No see HPI, No decreased output, No discharge, No dysuria, No frequency, No hematuria, No hesitancy, No incontinence , No nocturia, No pain, No other Musculoskeletal: No no symptoms reported, No see HPI, No back pain, No gout, No joint pain, No joint swelling, No muscle pain, No muscle stiffness, No muscle cramps, No muscle twitching, No muscle weakness, No neck pain, No other Skin: No no symptoms reported, No see HPI, No change in color, No change in hair/nails, No dryness, No hx of skin cancer, No lesions, No lumps, No pruritus , No rash, No other Psychiatric/Neurological: Weakness Physical Exam Vital Signs Capillary Refill : General Appearance: Moderate Distress (on BIPAP) HEENT: Normal ENT Inspection Respiratory: Decreased Breath Sounds, Respiratory Distress Cardiovascular: Regular Rate, Rhythm Gastrointestinal: Normal Bowel Sounds, Non Tender, Soft Rectal: Deferred Back: No CVA Tenderness Extremity: Non Tender, No Calf Tenderness, No Pedal Edema Neurologic/Psychiatric: Alert, Oriented x3 Assessment/Plan Assessment and Plan 1. Acute Respiratory Distress due to Acute non-STEMI--consult cardiology 2. Recent Aspiration Pneumonia--restart abx and check CXR 3. Weakness--restart PT once medically stable Problems: Clinical Quality Measures DVT/VTE Risk/Contraindication: Risk Factor Score Per Nursin RFS Level Per Nursing on Admit: 4+=Very High MARY JANE SANCHEZ DO May 11, 2016 13:03
--- NOTE | 2016-05-18 18:50 | Discharge Summary ---
Diagnosis/Chief Complaint Date of Admission Apr 14, 2016 at 20:48 Date of Discharge Apr 22, 2016 at 12:13 Discharge Date: Apr 22, 2016 Admission Diagnosis Admission Diagnosis 1. Acute Respiratory Distress due to Acute non-STEMI--consult cardiology 2. Recent Aspiration Pneumonia--restart abx and check CXR 3. Weakness--restart PT once medically stable Discharge Diagnosis 1. Acute Respiratory Distress due to Acute non-STEMI--improved, on medical managment 2. Recent Aspiration Pneumonia--resolved 3. Weakness--stable 4. Urinary Retention with BPH 5. Recent Small Bowel Obstruction with Bowel Resection and Re-anastamosis 6. Acute on Chronic Anemia 7. GERD 8. COPD 9. Anxiety Reason Hospital Visit This is a 61 year old male who was originally admitted to acute care after a small bowel obstruction with post-op complications. He was admitted to acute rehab but had respiratory distress so he had to be placed on BIPAP and re- admitted to the ICU. He was found to have an acute non-STEMI. Discharge Summary Hospital Course Hospital Course This is a 61 year old male who was originally admitted to acute care after a small bowel obstruction with post-op complications. He was admitted to acute rehab but had respiratory distress so he had to be placed on BIPAP and re- admitted to the ICU. He was found to have an acute non-STEMI. He refused any further workup once he was medically stable so medical management was initiated. He wanted to pursue any further cardiac workup as an outpatient with his electrolytic etcher in [place]. He was able to be transferred out of the ICU back to the medical floor with no further respiratory difficulty and no chest pain. He was continued on BIPAP at night with oxygen via nasal cannula during the day. He was restarted with PT. He continued to require a urinary catheter due to urinary retention so urecholine was added and urology was consulted. He did have acute on chronic anemia so his blood thinners had to be held and he did require blood transfusions. It was decided he would need further strengthening and monitoring with adjustment of medications so a SWING bed evaluation was done and he was transferred to SWING bed status. Procedures None. Discharge Physical Examination Allergies: Coded Allergies: morphine (Verified Adverse Reaction, Intermediate, CONFUSION, 12/04/14) General Appearance: Alert, Oriented X3, Cooperative, No Acute Distress Respiratory: Clear to Auscultation Cardiovascular: Regular Rate Abdominal: Normal Bowel Sounds, Soft, No Tenderness Extremities: No Clubbing, No Cyanosis, No Edema Psych/Mental Status: Mental Status NL Discharge Home Medications Reviewed and agree with Discharge Medication list on patient's Discharge Instruction sheet Instructions to Patient/Family Please see electonic discharge instructions given to patient. Clinical Quality Measures DVT/VTE Risk/Contraindication: Risk Factor Score Per Nursin RFS Level Per Nursing on Admit: 4+=Very High AIME CANO DO May 18, 2016 18:50
== END 2016-04-22 12:13 | disposition swing bed (61) | DRG 280 ==
LOC: ICU 20:48 → 4TH 04-18 12:18
PROVIDERS: ADMIT Family Medicine; ATTEND Family Medicine
PROC: 0TJB8ZZ Inspection of Bladder, Via Natural or Artificial Opening Endoscopic (ICD-10-PCS; principal; 2016-04-22 08:13)
DX: I97.191 Other postprocedural cardiac functional disturbances following other surgery (principal); I21.4 Non-ST elevation (NSTEMI) myocardial infarction; I25.10 Atherosclerotic heart disease of native coronary artery without angina pectoris; I50.31 Acute diastolic (congestive) heart failure; J96.01 Acute respiratory failure with hypoxia; J44.0 Chronic obstructive pulmonary disease with (acute) lower respiratory infection; J69.0 Pneumonitis due to inhalation of food and vomit; G93.41 Metabolic encephalopathy; N17.9 Acute kidney failure, unspecified; I51.3 Intracardiac thrombosis, not elsewhere classified; D63.8 Anemia in other chronic diseases classified elsewhere; E86.0 Dehydration; K40.20 Bilateral inguinal hernia, without obstruction or gangrene, not specified as recurrent; E83.42 Hypomagnesemia; Z87.891 Personal history of nicotine dependence; I48.91 Unspecified atrial fibrillation; Z95.1 Presence of aortocoronary bypass graft; R53.1 Weakness; R33.9 Retention of urine, unspecified; R31.0 Gross hematuria; F41.9 Anxiety disorder, unspecified; E03.9 Hypothyroidism, unspecified; S50.311A Abrasion of right elbow, initial encounter
CPT/HCPCS: 36415; 71010; 80048; 82040; 82274; 82805; 82962; 83605; 83735; 83880; 84100; 84484; 85014; 85018; 85025; 86850; 86900; 86901; 86920; 94640; 94660; 94664; 94760

== ENCOUNTER 2016-04-22 12:29 | Inpatient (IN) | payer MEDICARE, OTHER ==
[~2016-04-22] VITALS: Ht 188 cm; Wt 78.7 kg
--- NOTE | 2016-04-22 10:22 | OPERATIVE REPORT ---
PROCEDURE PHYSICIAN: AIXA OLIVERA DATE OF PROCEDURE: 04/22/2016 PREOPERATIVE DIAGNOSES: 1. Urinary retention. 2. Gross hematuria. POSTOPERATIVE DIAGNOSES: 1. Urinary retention. 2. Gross hematuria. OPERATION: Cystoscopy. SURGEON: Dr. Olivera. ANESTHESIA: Local. COMPLICATIONS: None. PROCEDURE: With the patient supine in his bed, after removing the Helms catheter, the urethra was infiltrated with 2% lidocaine jelly. Penile clamp was applied. This was then removed and a flexible cystoscope was introduced under vision. The anterior urethra was normal. No stricture. The prostate was mildly enlarged with mild bladder neck obstruction. The bladder was entered, revealed 1+ trabeculation of the wall, catheter cystitis. No foreign body, bladder tumor, stone visualized. Ureteric orifice is normal in shape, site and configuration with clear efflux. The cystoscope was confirmed in antegrade fashion and the cystoscope was removed. The patient tolerated the procedure and anesthesia well and remained in his bed in stable condition. Examination of the genitalia revealed a very large left inguinal scrotal hernia with normal testicle but decreased in size. On the right side, there was another inguinal hernia, not as big at all and also the testicle was same. Rectal exam revealed a flat to 1+ benign, nontender, elastic prostate. PLAN: On him is to give him a trial of voiding. If he fails after 2 straight catheter, we will put the catheter back in and give a chance for the Flomax to work. We will keep him on the urecholine and increase ambulation. I am pretty confident that he will be able to void on his own as he gets more an active and with the medication help. Job ID: [id number] Dictated Date: 04/22/2016 08:38:26 Cattle Farmer Date: 04/22/2016 10:14:52 / arian
[2016-04-22 12:00] VITALS: BP 115/73
[~2016-04-22 12:29] MED LIST changes: +CHLORASEPTIC SPRAY 177 ML LIQUID MC PRN; +FUROSEMIDE 40 MG (LASIX) TAB PO SCH; +KCL 10 MEQ TAB (MICRO K) PO SCH; +ONDANSETRON 4 MG/2 ML (SDV) Z0FRAN IVP PRN; +RT-ALBUTEROL/IPRATROPIUM 3 ML (DUONEB) VIAL INH PRN; +ZINC OXIDE 20% OINT 30 GM TUBE TOP SCH
--- OUTSIDE RECORDS SUMMARY | 2016-04-22 12:40 | XMS REPORT | Continuity of Care Document ---
Author Author [facility] Organization [facility] Address Unknown Phone Unavailable Care Team Providers Care Film Archivist Name Role Phone Mary Jane Sanchez PCP [phone] Source Comments Some departments are not documenting in the electronic medical record. If you do not see the information that you expected, contact Release of Information in the Health Information Management department at [phone] for further assistance in locating additional records.[facility] Active Allergies and Adverse Reactions Not on [...]
[2016-04-22] MEDS: RT-ALBUTEROL/IPRATROPIUM 3 ML (DUONEB) VIAL INH SCH ×3 (14:00→22:53)
[2016-04-22] MEDS: SUCRALFATE 1 GM (CARAFATE) TAB PO SCH ×3 (14:43→20:50)
[2016-04-22] MEDS: BETHANECHOL 25 MG (URECHOLINE) TAB PO SCH ×3 (14:43→20:51)
[2016-04-22] MEDS: NYSTATIN ORAL SUSP 5 ML UDC PO SCH ×2 (14:43→17:49)
[2016-04-22] MEDS: ENALAPRIL 2.5 MG (VASOTEC) TAB PO SCH (14:44)
[2016-04-22] MEDS: SPIRONOLACTONE 25 MG (ALDACTONE) TAB PO SCH (14:44)
[2016-04-22] MEDS ORDERED: NS IV 500 ML 500 ML ONE (15:08)
[2016-04-22] MEDS ORDERED: SUCRALFATE 1 GM (CARAFATE) TAB PO SCH (16:00)
[2016-04-22] MEDS ORDERED: BETHANECHOL 25 MG (URECHOLINE) TAB PO SCH (16:00)
[2016-04-22] MEDS: FINASTERIDE (PROSCAR) 5 MG TAB PO SCH (17:47)
[2016-04-22] MEDS: ALFUZOSIN HCL 10 MG TAB (UROXATRAL) PO SCH (17:49)
[2016-04-22 18:00] VITALS: BP 115/67
[2016-04-22] MEDS ORDERED: NYSTATIN ORAL SUSP 5 ML UDC PO SCH (18:00)
[2016-04-22] MEDS: RT-BUDESONIDE NEBS 0.5 MG/2ML (PULMICORT) AMP INH SCH (18:44)
[2016-04-22] MEDS: PANTOPRAZOLE 40 MG/10 ML (PROTONIX) VIAL IV SCH (20:49)
[2016-04-22] MEDS: ATORVASTATIN 20 MG (LIPITOR) TABLET PO SCH (20:50)
[2016-04-22] MEDS: HYDROcodone/APAP 7.5 MG/325 MG (LORTAB, LORCET PLUS) TABLET PO PRN (20:50)
[2016-04-22] MEDS: meTOproloL SUCCINATE 50 MG (TOPROL XL) TAB PO SCH (20:50)
[2016-04-22] MEDS: ALPRAZolam 0.25 MG (XANAX) TAB PO PRN (20:50)
[2016-04-22] MEDS ORDERED: BISACODYL 10 MG SUPP (DULCOLAX) PR SCH (21:00)
[2016-04-22] MEDS ORDERED: ZINC OXIDE 20% OINT 30 GM TUBE TOP SCH (22:15)
[2016-04-23] MEDS: NYSTATIN ORAL SUSP 5 ML UDC PO SCH ×4 (00:33→17:53)
[2016-04-23] MEDS: RT-ALBUTEROL/IPRATROPIUM 3 ML (DUONEB) VIAL INH SCH ×6 (02:21→22:11)
[2016-04-23 06:00] VITALS: BP 117/70
[2016-04-23] MEDS: BETHANECHOL 25 MG (URECHOLINE) TAB PO SCH ×4 (06:41→21:11)
[2016-04-23] MEDS: LEVOTHYROXINE 50 MCG (LEVOTHROID) TAB PO SCH (06:41)
[2016-04-23] MEDS: THIAMINE 100 MG (VITAMIN B-1) TAB PO SCH (06:41)
[2016-04-23] MEDS: MULTIVIT W/MINERALS TAB (THERAGRAN M) PO SCH (06:41)
[2016-04-23] MEDS: SUCRALFATE 1 GM (CARAFATE) TAB PO SCH ×4 (06:41→21:11)
[2016-04-23] MEDS: RT-BUDESONIDE NEBS 0.5 MG/2ML (PULMICORT) AMP INH SCH ×2 (06:47→18:53)
[2016-04-23] MEDS ORDERED: FINASTERIDE (PROSCAR) 5 MG TAB PO SCH (09:00)
[2016-04-23] MEDS ORDERED: ENALAPRIL 2.5 MG (VASOTEC) TAB PO SCH (09:00)
[2016-04-23] MEDS ORDERED: SPIRONOLACTONE 25 MG (ALDACTONE) TAB PO SCH (09:00)
--- NOTE | 2016-04-23 09:31 | Physical Therapy Evaluation ---
PT Evaluation-General Medical Diagnosis Admission Date Apr 22, 2016 at 12:29 Medical Diagnosis: weakness Onset Date: Apr 14, 2016 Therapy Diagnosis Therapy Diagnosis: impaired mobility, weakness, endurnace Height/Weight Height (Feet): 6 Height (Inches): 2.00 Weight (Pounds): 128 Weight (Ounces): 7.0 Precautions Precautions/Isolations: Standard Precautions Referral Physician: Mary Jane Sanchez DO Reason for Referral: Evaluation/Treatment Medical History Pertinent Medical History: Atrial Fib, CABG, CAD, COPD, Heart Failure, HTN, Renal Insufficiency, Smoking Additional Medical History bowel resection, s/p lap lysis of adhesions Reviewed History: Yes Social History Home: Single Level Current Living Status: Spouse Entry Into Home: Stairs With Railing PT Steps Into Home: 2 Prior/Core FIM Prior Level of Function Functional [place] Measure 0=Not Assessed/NA 4=Minimal Assistance 1=Total Assistance 5=Supervision or Setup 2=Maximal Assistance 6=Modified [place] 3=Moderate Assistance 7=Complete [place] Bed Mobility: 6 Transfers (B,C,W/C) (FIM): 6 Gait: 6 Patient uses SPC PT Evaluation-Current Subjective Patient in bed pre tx, agrees to PT, no complaints of pain at this time. Patient has a long oxygen line and has apparently been ambulating to the bathroom by himself, however, he says he his having a very hard time urinating. Pt/Family Goals "hopefully I will be able to go home next week" Objective Patient Orientation: Normal For Age Attachments: Oxygen ROM/Strength ROM Lower Extremities WNL Strenght Lower Extremities 4+/5 gross bilateral lower extremities Integumentary/Posture Bowel Incontinence: No Bladder Incontinence: No Sensory Vision: Functional Hearing: Functional Transfers Functional [place] Measure 0=Not Assessed/NA 4=Minimal Assistance 1=Total Assistance 5=Supervision or Setup 2=Maximal Assistance 6=Modified [place] 3=Moderate Assistance 7=Complete [place] Transfers (B, C, W/C) (FIM): 5 Scootin Rollin Supine to/from Sit: 6 Sit to/from Stand: 5 Sit to Lying (QC): 6 Lying to Sitting/Side of Bed(Q: 6 Sit to Stand (QC): 6 Gait Does the Patient Walk?: Yes Mode of Locomotion: Walk Anticipated Mode of Locomotion: Walk Gait (FIM): 5 Distance: 800' Walk 50 ft with 2 Turns(QC): 4 Walk 150 ft (QC): 4 Gait Level of Assist: 5 Gait Persons Needed: 1 Gait Assistive Device: Cane Single Point Comments/Gait Description Patient can ambulate 800' with a single point cane with SBA including 10' over and uneven surface like carpet and 50' with at least 2 turns of 90 degrees, he does stop occasionally for a standing rest break to catch his breath, no LOB or unsteadiness Balance Sitting Static: Normal Sitting Dynamic: Normal Standing Static: Good Standing Dynamic: Good Assessment/Needs Patient has impairments in mobility, strength, and endurance, he does get SOB during ambulation and need an occasional standing rest break Rehab Potential: Fair PT Penitentiary Goals Penitentiary Goals PT Penitentiary Goals Time Frame: Apr 30, 2016 Transfers (B,C,W/C) (FIM): 6 Sit to Lying (QC): 6 Lying-Sitting on Side/Bed(QC): 6 Sit to Stand (QC): 6 Rollin Does the Patient Walk: Yes Gait (FIM): 6 Distance: 1000' Walk 50ft with 2 Turns (QC): 6 Walk 150 ft (QC): 6 Gait Level of Assist: 6 Gait Assistive Device: Cane Single Point PT Plan Problem List Problem List: Activity Tolerance, Functional Strength, Safety, Balance, Gait, Transfer Treatment/Plan Treatment Plan: Continue Plan of Care Treatment Plan: Education, Functional Activity Kris, Functional Strength, Gait , Safety, Therapeutic Exercise, Transfers Treatment Duration: Apr 30, 2016 # of days/week 5-6 Visits Per Week: 5-6 Minutes/Day (M-F): 15-30 Minutes/Day (Sat/[place]): 15-30 Pt/Family Agrees w/Plan: Yes Safety Risks/Education Patient Education: Gait Training, Transfer Techniques, Correct Positioning, Disease Process, Safety Issues Teaching Recipient: Patient Teaching Methods: Demonstration, Discussion Response to Teaching: Reinforcement Needed Discharge Recommendations Plan Patient will perform transfer training, balance and endurance training, functional strengthening, stair training, gait training, education, to improve functional mobility and independence at home. Therapy D/C Recommendations: Home w/ Family Support Time/GCodes Time In: 905 Time Out: 935 Total Billed Treatment Time: 30 Total Billed Treatment 1 visit EVM 15 min GT 15 min CLAUDIA ONTIVEROS PT Apr 23, 2016 09:31
[2016-04-23] MEDS: FINASTERIDE (PROSCAR) 5 MG TAB PO SCH (09:32)
[2016-04-23] MEDS: FUROSEMIDE 40 MG (LASIX) TAB PO SCH (09:32)
[2016-04-23] MEDS: KCL 10 MEQ TAB (MICRO K) PO SCH (09:32)
[2016-04-23] MEDS: ENALAPRIL 2.5 MG (VASOTEC) TAB PO SCH (09:33)
[2016-04-23] MEDS: meTOproloL SUCCINATE 50 MG (TOPROL XL) TAB PO SCH ×2 (09:33→21:15)
[2016-04-23] MEDS: HYDROcodone/APAP 7.5 MG/325 MG (LORTAB, LORCET PLUS) TABLET PO PRN (09:33)
[2016-04-23] MEDS: ALPRAZolam 0.25 MG (XANAX) TAB PO PRN ×2 (09:33→21:11)
--- NOTE | 2016-04-23 09:33 | Cardiology Progress Note ---
Subjective Subjective/Events-last exam Patient is in bed, feeling better, no new complaint, no chest pain, no dyspnea Review of Systems General: No Chills, No Night Sweats, No Fatigue, No Malaise, No Appetite, No Other HEENT: No Head Aches, No Visual Changes, No Eye Pain, No Ear Pain, No Dysphasia , No Sinus Congestion, No Post Nasal Drip, No Sore Throat, No Other Pulmonary: No Dyspnea, No Cough, No Pleuritic Chest Pain, No Other Cardiovascular: No: Chest Pain, Edema, Lt Headedness, Orthopnea, Other, Palpitations, Paroxysmal Noc. Dyspnea Objective-Cardiology Exam Last Set of Vital Signs Vital Signs 04/23/16 06:00 Temp 97.7 Pulse 54 Resp 20 B/P 117/70 O2 Delivery Nasal Cannula Capillary Refill : I&O Bad tableGeneral: Alert, Oriented X3, Cooperative HEENT: Atraumatic, PERRLA Neck: Supple, No JVD, No Thyromegaly Lungs: Clear to Auscultation, Normal Air Movement Heart: Regular Rate, Normal S1, Normal S2, No Murmurs Abdomen: Normal Bowel Sounds, Soft, No Tenderness, No Hepatosplenomegaly, No Masses Extremities: No Clubbing, No Cyanosis, No Edema, Normal Pulses, No Tenderness/ Swelling Skin: No Rashes, No Breakdown, No Significant Lesion Neuro: Normal Gait, Normal Speech, Strength at 5/5 X4 Ext, Normal Tone, Sensation Intact Psych/Mental Status: Mental Status NL, Mood NL Results Lab Laboratory Tests Test 04/22/16 16:30 04/23/16 06:25 Range/Units Glucometer 96 70-110 MG/DL A/P-Cardiology Admission Diagnosis Paroxysmal atrial fibrillation Coronary artery disease Hypertension Pneumonia Assessment/Plan Status post respiratory failure - likely combination of COPD, aspiration pneumonia, acute diastolic heart failure, patient is better, starting in swing bed, receiving physical therapy. Anemia, Status post multiple transfusions, H&H are better today, still having some anemia, followed and managed by primary care physician and Dr. Stephens. Paroxysmal Atrial fibrillation, currently in sinus tachycardia. On metoprolol, cannot tolerate oral anticoagulation due to the severe anemia and blood transfusion. Acute diastolic congestive heart failure: normal EF and elevated BNP, responded to diuretics well, maintained on Toprol, enalapril and spironolactone and tolerating it well. Non-ST elevation FL: Plavix and ASA currently on hold due to anemia, continue to monitor. Possible left atrial thrombus, full anticoagulation with Lovenox is recommended , currently on hold secondary to anemia. DIAN may be recommended when more stable pulmonary mo. Patient asking to have this done by his primary correctional supply supervisor as an outpatient Chronic hypomagnesemia, has been on magnesium as an outpatient, continue to monitor. Urinary retention, hematuria, cystoscopy done by PAYTON Daily MD Apr 23, 2016 09:33
[2016-04-23] MEDS: PANTOPRAZOLE 40 MG/10 ML (PROTONIX) VIAL IV SCH ×2 (09:34→21:15)
[2016-04-23] MEDS: SPIRONOLACTONE 25 MG (ALDACTONE) TAB PO SCH (09:34)
[2016-04-23] MEDS: NICOTINE 21 MG (NICODERM) PATCH TD SCH (09:35)
--- NOTE | 2016-04-23 09:41 | Progress Note-Urology ---
Progress Note-Urology Progress Notes/Assess & Plan Progress/Assessment & Plan HAS NOT VOIDED YET, STRAIGHT CATH X 2, 500 AND 1,000CC, NEXT TIME REINSERT TORRES AND GIVE MORE TIME FOR FLOMAX TO WORK. Final Diagnosis URINE RETENTION AIXA OLIVERA MD Apr 23, 2016 9:41 am
--- NOTE | 2016-04-23 13:45 | Progress Note-Standard ---
Standard Progress Note Progress Notes/Assess & Plan Progress/Assessment & Plan 04/23/16:gentleman admitted with medical issues following small bowel resection due to adhesive obstruction. Hemoglobin stable. Tolerating diet. Could be discharged soon Final Diagnosis small bowel obstruction. Upper GI bleeding FLOYD BARNETT MD Apr 23, 2016 1:45 pm
--- NOTE | 2016-04-23 15:03 | Progress Note (SOAP) ---
Subjective Subjective/Events-last exam PT REPORTS THAT HE IS FEELING BETTER TODAY - EXCEPT FOR THE RECURRENT RETENTION Review of Systems General: Fatigue Malaise HEENT: Head Aches Pulmonary: Dyspnea Cough Cardiovascular: : Chest Pain Gastrointestinal: : Abdominal Pain: Nausea Genitourinary: Dysuria Neurological: : Confusion: Weakness Objective Exam Vital Signs Date Time Temp Pulse Resp B/P Pulse Ox O2 Delivery O2 Flow Rate FiO2 04/23/16 13:38 98 4.00 04/23/16 10:38 97 4.00 04/23/16 09:00 Nasal Cannula 4.00 04/23/16 06:48 96 4.00 04/23/16 06:48 96 4.00 04/23/16 06:00 97.7 54 20 117/70 96 Nasal Cannula 3.00 04/23/16 02:21 95 3.00 04/22/16 22:53 94 3.00 04/22/16 20:20 Nasal Cannula 4.00 04/22/16 18:46 3.00 04/22/16 18:45 90 3.00 04/22/16 18:00 97.8 87 19 115/67 91 Nasal Cannula 3.00 I & O 04/23/16 07:00 Intake Total 840 ml Output Total 1850 ml Balance -1010 ml Capillary Refill : General Appearance: No Apparent Distress WD/WN HEENT: PERRL/EOMI Pharynx Normal Neck: Full Range of Motion Supple Respiratory: Chest Non Tender Lungs Clear Normal Breath Sounds Cardiovascular: Irregularly Irregular Gastrointestinal: normal bowel sounds non tender soft no organomegaly no pulsatile mass Extremity: Normal Capillary Refill No Calf Tenderness Pedal Edema (TRACE) Neurologic/Psychiatric: Alert Oriented x3 No Motor/Sensory Deficits Normal Mood/Affect Lymphatic: No Adenopathy Results Lab Laboratory Tests 04/22/16 16:30: 04/23/16 06:25: Glucometer 96 04/23/16 11:45: Hemoglobin 8.2L Assessment/Plan Assessment/Plan Assess & Plan/Chief Complaint RESPIRATORY FAILURE - COPD, HX OF ASPIRATION PNEUMONIA, AND HEART FAILURE. CHRONIC ANEMIA - HGB DROPPING - PT IS STATUS POST TRANSFUSION - CONTINUE WITH PRN BLOOD TRANSFUSIONS. ATRIAL FIBRILLATION - PT ON BETABLOCKERS - DUE TO ANEMIA - ANTI-COAGULATION IS NOT ADVISED. HX OF NON-ST ELEVATION - SUPPORTIVE CARE HEART FAILURE - ON DIURETIC THERAPY, MONITOR I/O AND DAILY WEIGHTS. URINARY RETENTION - MANAGED BY JOSELIN - PT HAD TORRES OUT, HAD TO BE REPLACED DUE TO RECURRENT RETENTION - CONTINUE WITH BETHANECHOL. JESSE CACERES MD Apr 23, 2016 15:03
[2016-04-23 17:39] VITALS: BP 100/60
[2016-04-23] MEDS: ALFUZOSIN HCL 10 MG TAB (UROXATRAL) PO SCH (17:52)
[2016-04-23] MEDS: ATORVASTATIN 20 MG (LIPITOR) TABLET PO SCH (21:14)
[2016-04-24] MEDS: NYSTATIN ORAL SUSP 5 ML UDC PO SCH ×4 (00:18→18:00)
[2016-04-24] MEDS: RT-ALBUTEROL/IPRATROPIUM 3 ML (DUONEB) VIAL INH SCH ×6 (02:35→22:28)
[2016-04-24 05:00] VITALS: BP 122/66
[2016-04-24] MEDS: THIAMINE 100 MG (VITAMIN B-1) TAB PO SCH (06:06)
[2016-04-24] MEDS: SUCRALFATE 1 GM (CARAFATE) TAB PO SCH ×4 (06:06→20:35)
[2016-04-24] MEDS: LEVOTHYROXINE 50 MCG (LEVOTHROID) TAB PO SCH (06:06)
[2016-04-24] MEDS: MULTIVIT W/MINERALS TAB (THERAGRAN M) PO SCH (06:06)
[2016-04-24] MEDS: BETHANECHOL 25 MG (URECHOLINE) TAB PO SCH ×4 (06:08→20:35)
[2016-04-24 06:23] LABS: MEAN PLATELET VOLUME 9.8 FL (7.4-10.4); RED BLOOD COUNT 2.94 10^6/uL (4.35-5.85); RED CELL DISTRIBUTION WIDTH 15.2 % (10.0-14.5); WHITE BLOOD COUNT 9.5 10^3/uL (4.3-11.0)
[2016-04-24 07:06] LABS: ANION GAP 9 MMOL/L (5-14); BLOOD UREA NITROGEN 19 MG/DL (7-18); BUN/CREATININE RATIO 16; CARBON DIOXIDE 26 MMOL/L (21-32); CHLORIDE 102 MMOL/L (98-107); CREATININE SERUM 1.19 MG/DL (0.60-1.30); GFR ESTIMATED > 60; GLUCOSE 95 MG/DL (70-105); POTASSIUM 4.2 MMOL/L (3.6-5.0); SODIUM 137 MMOL/L (135-145)
[2016-04-24] MEDS: RT-BUDESONIDE NEBS 0.5 MG/2ML (PULMICORT) AMP INH SCH ×2 (07:24→19:05)
[2016-04-24] MEDS: FINASTERIDE (PROSCAR) 5 MG TAB PO SCH (09:59)
[2016-04-24] MEDS: ALPRAZolam 0.25 MG (XANAX) TAB PO PRN ×2 (09:59→20:36)
[2016-04-24] MEDS: SPIRONOLACTONE 25 MG (ALDACTONE) TAB PO SCH (09:59)
[2016-04-24] MEDS: ENALAPRIL 2.5 MG (VASOTEC) TAB PO SCH (09:59)
[2016-04-24] MEDS: meTOproloL SUCCINATE 50 MG (TOPROL XL) TAB PO SCH ×2 (09:59→20:36)
[2016-04-24] MEDS: CATHETER FLUSH 10 ML SYR IV PRN (10:02)
[2016-04-24] MEDS: PANTOPRAZOLE 40 MG/10 ML (PROTONIX) VIAL IV SCH ×2 (10:02→20:35)
[2016-04-24] MEDS: NICOTINE 21 MG (NICODERM) PATCH TD SCH (10:07)
[2016-04-24] MEDS: PATCH REMOVAL TP SCH (10:08)
--- NOTE | 2016-04-24 11:53 | Progress Note (SOAP) ---
Subjective Subjective/Events-last exam PT REPORTS FEELING BETTER, HOWEVER, HE HAS QUESTIONS ABOUT GETTING HIS CATHETER REMOVED. HE DENIES CHEST PAIN, SHORTNESS OF BREATH, DIZZINESS. Review of Systems General: No Chills, Fatigue HEENT: No Head Aches Pulmonary: No Dyspnea, No Cough Cardiovascular: No: Chest Pain, Edema Gastrointestinal: No: Abdominal Pain, Nausea Neurological: : Weakness Objective Exam Vital Signs Date Time Temp Pulse Resp B/P Pulse Ox O2 Delivery O2 Flow Rate FiO2 04/24/16 11:02 95 4.00 04/24/16 07:26 96 4.00 04/24/16 07:26 96 4.00 04/24/16 05:00 98.1 92 20 122/66 98 Nasal Cannula 4.00 04/24/16 02:36 98 4.00 04/24/16 00:00 24 35.00 04/23/16 22:19 91 20 97 35.00 04/23/16 22:12 97 4.00 04/23/16 22:04 Nasal Cannula 4.00 04/23/16 18:55 4.00 04/23/16 18:53 95 4.00 04/23/16 17:39 98.1 83 20 100/60 93 Nasal Cannula 3.00 04/23/16 13:38 98 4.00 I & O 04/24/16 07:00 Intake Total 2802 ml Output Total 1975 ml Balance 827 ml Capillary Refill : General Appearance: No Apparent Distress WD/WN HEENT: PERRL/EOMI Pharynx Normal Neck: Full Range of Motion Supple Respiratory: Chest Non Tender Lungs Clear Cardiovascular: Regular Rate, Rhythm Gastrointestinal: normal bowel sounds non tender soft no organomegaly no pulsatile mass other (SURGICAL SITE WITH DON STILL IN PLACE, BECOMING IRRITATED) Extremity: Normal Capillary Refill Pedal Edema (TRACE) Neurologic/Psychiatric: Alert Oriented x3 No Motor/Sensory Deficits Normal Mood/Affect Skin: Warm/Dry Lymphatic: No Adenopathy Results Lab Laboratory Tests 04/24/16 06:15: Anion Gap 9, BUN/Creatinine Ratio 16, Blood Urea Nitrogen 19H, Calcium Level 8.0L, Carbon Dioxide Level 26, Chloride Level 102, Creatinine 1.19, Estimat Glomerular Filtration Rate > 60, Glucose Level 95, Hematocrit 29L, Hemoglobin 9.0L, Mean Corpuscular Hemoglobin 31, Mean Corpuscular Hemoglobin Concent 32, Mean Corpuscular Volume 97, Mean Platelet Volume 9.8, Platelet Count 629H, Potassium Level 4.2, Red Blood Count 2.94L, Red Cell Distribution Width 15.2H, Sodium Level 137, White Blood Count 9.5 Assessment/Plan Assessment/Plan Assess & Plan/Chief Complaint RESPIRATORY FAILURE - COPD, HX OF ASPIRATION PNEUMONIA, AND HEART FAILURE. CHRONIC ANEMIA - HGB STABLE - PT IS STATUS POST TRANSFUSION - CONTINUE WITH PRN BLOOD TRANSFUSIONS. ATRIAL FIBRILLATION - PT ON BETABLOCKERS - DUE TO ANEMIA - ANTI-COAGULATION IS NOT ADVISED. HX OF NON-ST ELEVATION - SUPPORTIVE CARE HEART FAILURE - ON DIURETIC THERAPY, MONITOR I/O AND DAILY WEIGHTS. URINARY RETENTION - MANAGED BY JOSELIN - PT HAD TORRES OUT, HAD TO BE REPLACED DUE TO RECURRENT RETENTION - CONTINUE WITH BETHANECHOL - DR. OLIVERA TO MANAGE PATIENT 'S URINARY RETENTION JESSE CACERES MD Apr 24, 2016 11:53
[2016-04-24] MEDS ORDERED: SENNA W/DOCUSATE (SENOKOT S) TABLET PO ONE (12:00)
--- NOTE | 2016-04-24 12:19 | Progress Note-Standard ---
Standard Progress Note Progress Notes/Assess & Plan Progress/Assessment & Plan 04/23/16:gentleman admitted with medical issues following small bowel resection due to adhesive obstruction. Hemoglobin stable. Tolerating diet. Could be discharged soon 04/24/16:ongoing medical issues with urinary retention on oxygen requirement. Hemoglobin stable. Postoperative incisions uninfected and bao would be remote Final Diagnosis adhesive small bowel obstruction. Urinary retention FLOYD BARNETT MD Apr 24, 2016 12:19 pm
[2016-04-24] MEDS: ALFUZOSIN HCL 10 MG TAB (UROXATRAL) PO SCH (18:00)
[2016-04-24 18:18] VITALS: BP 122/69
[2016-04-24] MEDS: ATORVASTATIN 20 MG (LIPITOR) TABLET PO SCH (20:35)
[2016-04-24] MEDS: SENNA W/DOCUSATE (SENOKOT S) TABLET PO SCH (20:36)
[2016-04-25] MEDS: NYSTATIN ORAL SUSP 5 ML UDC PO SCH ×5 (00:29→23:41)
[2016-04-25] MEDS: RT-ALBUTEROL/IPRATROPIUM 3 ML (DUONEB) VIAL INH SCH ×6 (02:27→22:16)
[2016-04-25 06:00] VITALS: BP 106/55
[2016-04-25] MEDS: LEVOTHYROXINE 50 MCG (LEVOTHROID) TAB PO SCH (06:14)
[2016-04-25] MEDS: THIAMINE 100 MG (VITAMIN B-1) TAB PO SCH (06:14)
[2016-04-25] MEDS: BETHANECHOL 25 MG (URECHOLINE) TAB PO SCH ×4 (06:14→21:58)
[2016-04-25] MEDS: MULTIVIT W/MINERALS TAB (THERAGRAN M) PO SCH (06:14)
[2016-04-25] MEDS: SUCRALFATE 1 GM (CARAFATE) TAB PO SCH ×4 (06:14→21:58)
[2016-04-25] MEDS: RT-BUDESONIDE NEBS 0.5 MG/2ML (PULMICORT) AMP INH SCH ×2 (06:37→18:30)
--- NOTE | 2016-04-25 08:29 | Cardiology Progress Note ---
Subjective Subjective/Events-last exam patient is laying down in bed, feeling better, denied any chest pain or shortness of breath. Denied any palpitation. Review of Systems General: No Chills, No Night Sweats, No Fatigue, No Malaise, No Appetite, No Other HEENT: No Head Aches, No Visual Changes, No Eye Pain, No Ear Pain, No Dysphasia , No Sinus Congestion, No Post Nasal Drip, No Sore Throat, No Other Pulmonary: No Dyspnea, No Cough, No Pleuritic Chest Pain, No Other Cardiovascular: No: Chest Pain, Edema, Lt Headedness, Orthopnea, Other, Palpitations, Paroxysmal Noc. Dyspnea Objective-Cardiology Exam Last Set of Vital Signs Vital Signs 04/25/16 04/25/16 06:00 06:37 Temp 97.7 Pulse 85 Resp 20 B/P 106/55 Pulse Ox 95 O2 Delivery Nasal Cannula O2 Flow Rate 4.00 Capillary Refill : I&O Intake and Output 04/25/16 00:00 Intake Total 2020 ml Output Total 1900 ml Balance 120 ml Intake Oral 2020 ml Output Urine Total 1900 ml # Voids 1 # Bowel Movements 2 General: Alert, Oriented X3, Cooperative HEENT: Atraumatic, PERRLA Neck: Supple, No JVD, No Thyromegaly Lungs: Clear to Auscultation, Normal Air Movement Heart: Regular Rate, Normal S1, Normal S2, No Murmurs Abdomen: Normal Bowel Sounds, Soft, No Tenderness, No Hepatosplenomegaly, No Masses Extremities: No Clubbing, No Cyanosis, No Edema, Normal Pulses, No Tenderness/ Swelling Skin: No Rashes, No Breakdown, No Significant Lesion Neuro: Normal Gait, Normal Speech, Strength at 5/5 X4 Ext, Normal Tone, Sensation Intact Psych/Mental Status: Mental Status NL, Mood NL A/P-Cardiology Admission Diagnosis Paroxysmal atrial fibrillation Coronary artery disease Hypertension Pneumonia Assessment/Plan Status post respiratory failure - likely combination of COPD, aspiration pneumonia, acute diastolic heart failure, patient is feeling better. Continue on current treatment, continue with physical therapy. Anemia, Status post multiple transfusions, endoscopy was done by Dr. Stephens, reported no active bleeding, I would like to start aspirin if okay with Dr. Stephens Paroxysmal Atrial fibrillation, currently in sinus tachycardia. On metoprolol, cannot tolerate oral anticoagulation due to the severe anemia and blood transfusion. Acute diastolic congestive heart failure: normal EF and elevated BNP, responded to diuretics well, maintained on Toprol, enalapril and spironolactone and tolerating it well. Non-ST elevation ID: Plavix and ASA currently on hold due to anemia, I will try to start aspirin and monitor H&H Possible left atrial thrombus, full anticoagulation with Lovenox is recommended , currently on hold secondary to anemia. DIAN may be recommended when more stable pulmonary mo. Patient asking to have this done by his primary gastroenterology teacher as an outpatient Chronic hypomagnesemia, has been on magnesium as an outpatient, continue to monitor. Urinary retention, hematuria, cystoscopy done by PAYTON Daily MD Apr 25, 2016 08:29
[2016-04-25] MEDS ORDERED: ASPIRIN E.C. 81 MG (ECOTRIN) TAB PO SCH (09:00)
[2016-04-25] MEDS: KCL 10 MEQ TAB (MICRO K) PO SCH (09:29)
[2016-04-25] MEDS: diphenhydrAMINE 50 MG/ML INJ (BENADRYL) IVP SCH (09:29)
[2016-04-25] MEDS: PANTOPRAZOLE 40 MG/10 ML (PROTONIX) VIAL IV SCH (09:29)
[2016-04-25] MEDS: MAGNESIUM 1 GM/100 ML IVPB 200 ML IV SCH (09:29)
[2016-04-25] MEDS: SENNA W/DOCUSATE (SENOKOT S) TABLET PO SCH ×2 (09:29→22:00)
[2016-04-25] MEDS: PATCH REMOVAL TP SCH (09:30)
[2016-04-25] MEDS: FINASTERIDE (PROSCAR) 5 MG TAB PO SCH (09:30)
[2016-04-25] MEDS: FUROSEMIDE 40 MG (LASIX) TAB PO SCH (09:30)
[2016-04-25] MEDS: meTOproloL SUCCINATE 50 MG (TOPROL XL) TAB PO SCH ×2 (09:30→21:57)
[2016-04-25] MEDS: ENALAPRIL 2.5 MG (VASOTEC) TAB PO SCH (09:30)
[2016-04-25] MEDS: SPIRONOLACTONE 25 MG (ALDACTONE) TAB PO SCH (09:30)
[2016-04-25] MEDS: NICOTINE 21 MG (NICODERM) PATCH TD SCH (09:30)
[2016-04-25] MEDS: ALPRAZolam 0.25 MG (XANAX) TAB PO PRN ×2 (09:38→22:00)
--- NOTE | 2016-04-25 09:43 | Progress Note-Urology ---
Progress Note-Urology Progress Notes/Assess & Plan Progress/Assessment & Plan TORERS BACK IN, WE WILL KEEP FOR 2 WEEKS SINCE STARTED FLOMAX, THE DO TOV HERE OR HOME WITH C ASSISTANCE, IF STILL RETENTION CONSIDER DC URECHOLINE GRADUALLY OK TO TRY AGAIN ON BLOOD THINNERS FROM POINT Final Diagnosis URINE RETENTION AIXA OLIVERA MD Apr 25, 2016 9:43 am
--- NOTE | 2016-04-25 11:42 | Physical Therapy Daily Note ---
PT Daily Note-Current Subjective Patient is very agreeable to participate with PT. Pain Numeric Pain Scale: 0-No Pain Location: No Pain Reported Mental Status Patient Orientation: Normal For Age Attachments: Oxygen, Helms Catheter Transfers Functional [place] Measure 0=Not Assessed/NA 4=Minimal Assistance 1=Total Assistance 5=Supervision or Setup 2=Maximal Assistance 6=Modified [place] 3=Moderate Assistance 7=Complete IndependenceIRFPAI Quality Coding Scale 6 Independent with activity with or without an assistive device 5 Patient requires set up or clean up by helper. Patient completes activity by themselves 4 Supervision or touching assist (CGA). [place] provide cues , steadying assist 3 The helper provides less than half the effort to complete the activity 2 The helper provides more than half the effort to complete the activity 1 Dependent. The helper does all the effort to complete an activity 7 Patient refused to complete or attempt activity 9 The patient did not perform the activity before the current illness or injury 88 Not attempted due to Medical conditions or safety concerns Transfers (B, C, W/C) (FIM): 7 Scootin Roll Left to Right (QC): 6 Supine to/from Sit: 7 Sit to/from Stand: 7 Sit to Lying (QC): 6 Sit to Stand (QC): 6 Gait Training Does the Patient Walk?: Yes Gait (FIM): 6 Distance (FIM): 3=150 ft Distance: 1000' Walk 50 ft with 2 Turns(QC): 6 Walk 150 ft (QC): 6 Gait Level of Assist: 6 Gait Assistive Device: Cane Single Point safe and functional Assessment Patient is currently at [facility] with gross motor skills and has [facility] amb[facility]. PT to continue x 1-3 days to ensure consistency with gross motor skills. PT Laundry Bag Punch Operator Goals Laundry Bag Punch Operator Goals PT Laundry Bag Punch Operator Goals Time Frame: Apr 30, 2016 Transfers (B,C,W/C) (FIM): 6 Sit to Lying (QC): 6 Lying-Sitting on Side/Bed(QC): 6 Sit to Stand (QC): 6 Rollin Does the Patient Walk: Yes Gait (FIM): 6 Distance: 1000' Walk 50ft with 2 Turns (QC): 6 Walk 150 ft (QC): 6 Gait Level of Assist: 6 Gait Assistive Device: Cane Single Point PT Plan Treatment/Plan Treatment Plan: Continue Plan of Care Treatment Plan: Education, Functional Activity Kris, Functional Strength, Gait , Safety, Therapeutic Exercise, Transfers Treatment Duration: Apr 30, 2016 Visits Per Week: 5-6 Minutes/Day (M-F): 15-30 Minutes/Day (Sat/[place]): 15-30 Time/GCodes Time In: 1035 Time Out: 1050 Total Billed Treatment Time: 15 Total Billed Treatment 1 visit FA 15 min JESS LAZCANO PT Apr 25, 2016 11:42
[2016-04-25] MEDS: ALFUZOSIN HCL 10 MG TAB (UROXATRAL) PO SCH (17:31)
[2016-04-25] MEDS: PANTOPRAZOLE 40 MG (PROTONIX) TAB PO SCH (17:31)
[2016-04-25 18:00] VITALS: BP 115/68
--- NOTE | 2016-04-25 19:10 | Progress Note (SOAP) ---
Subjective Subjective/Events-last exam Fwup small bowel obstruction--S/P exploratory lab with small bowel resection and reanastamosis, acute renal failure--worsened since surgery, dehydration, COPD, Atrial fibrillation with RVR, Post-op VDRF with aspiration pneumonia, NSTEMI, acute anemia. BMs light brown color per patient. Helms catheter back in. Objective Exam Vital Signs Date Time Temp Pulse Resp B/P Pulse Ox O2 Delivery O2 Flow Rate FiO2 04/25/16 18:35 4.00 04/25/16 18:30 97 4.00 04/25/16 18:00 97.6 84 18 115/68 98 Nasal Cannula 4.00 04/25/16 15:22 94 4.00 04/25/16 10:55 94 4.00 04/25/16 07:50 95 Nasal Cannula 4.00 04/25/16 06:37 95 4.00 04/25/16 06:32 95 4.00 04/25/16 06:00 97.7 85 20 106/55 95 Nasal Cannula 4.00 04/25/16 02:27 98 4.00 04/24/16 22:29 97 4.00 04/24/16 19:35 Nasal Cannula 4.00 04/24/16 19:11 91 4.00 I & O 04/25/16 07:00 Intake Total 2270 ml Output Total 3200 ml Balance -930 ml Capillary Refill : General Appearance: No Apparent Distress Neck: Supple Respiratory: Lungs Clear Cardiovascular: Regular Rate, Rhythm Systolic Murmur Gastrointestinal: normal bowel sounds non tender soft Extremity: Non Tender No Calf Tenderness No Pedal Edema Neurologic/Psychiatric: Alert Oriented x3 Skin: Pallor Assessment/Plan Assessment/Plan Assess & Plan/Chief Complaint 1. Acute Respiratory Distress with recent aspiration pneumonia--back on NC and CXR stable 2. NSTEMI--cardiology following, restart aspirin today 3. Small Bowel Obstruction--S/P exp lap with SARAH and small bowel resection with reanastamosis--tolerating regular diet 4. Atrial Fibrillation with RVR--back in NSR 5. Hypomagnesemia-- Mg replacement 6. Worsening Post-op Anemia--H/H stable, EGD showed no active bleeding 7. Weakness--continue PT 8. Urinary retention--continue urecholine and flomax ORENDERAIME S DO Apr 25, 2016 19:10
[2016-04-25 21:40] VITALS: BP 110/65
[2016-04-25] MEDS: ATORVASTATIN 20 MG (LIPITOR) TABLET PO SCH (21:58)
[2016-04-26] MEDS: RT-ALBUTEROL/IPRATROPIUM 3 ML (DUONEB) VIAL INH SCH ×6 (02:02→23:09)
[2016-04-26 05:49] LABS: MEAN PLATELET VOLUME 9.8 FL (7.4-10.4); RED BLOOD COUNT 2.71 10^6/uL (4.35-5.85); RED CELL DISTRIBUTION WIDTH 14.9 % (10.0-14.5); WHITE BLOOD COUNT 9.4 10^3/uL (4.3-11.0)
[2016-04-26] MEDS: THIAMINE 100 MG (VITAMIN B-1) TAB PO SCH (06:00)
[2016-04-26] MEDS: PANTOPRAZOLE 40 MG (PROTONIX) TAB PO SCH ×2 (06:00→16:17)
[2016-04-26] MEDS: BETHANECHOL 25 MG (URECHOLINE) TAB PO SCH ×4 (06:00→20:02)
[2016-04-26] MEDS: SUCRALFATE 1 GM (CARAFATE) TAB PO SCH ×4 (06:00→20:02)
[2016-04-26] MEDS: LEVOTHYROXINE 50 MCG (LEVOTHROID) TAB PO SCH (06:00)
[2016-04-26] MEDS: NYSTATIN ORAL SUSP 5 ML UDC PO SCH ×3 (06:00→17:54)
[2016-04-26] MEDS: MULTIVIT W/MINERALS TAB (THERAGRAN M) PO SCH (06:00)
[2016-04-26] MEDS: RT-BUDESONIDE NEBS 0.5 MG/2ML (PULMICORT) AMP INH SCH ×2 (06:26→19:37)
[2016-04-26 06:49] VITALS: BP 113/65
[2016-04-26 08:00] VITALS: BP 110/68
[2016-04-26] MEDS ORDERED: MAGNESIUM 1 GM/100 ML IVPB 100 ML IV SCH (08:15)
--- NOTE | 2016-04-26 08:16 | Cardiology Progress Note ---
Subjective Subjective/Events-last exam Patient in bed. No new complaint. Denies any CP or dyspnea. Review of Systems General: No Night Sweats, No Fatigue, No Malaise HEENT: No Visual Changes, No Dysphasia, No Sore Throat Pulmonary: No Dyspnea, No Cough Cardiovascular: No: Chest Pain, Edema, Palpitations, Paroxysmal Noc. Dyspnea Gastrointestinal: No: Abdominal Pain, Nausea, Vomiting Genitourinary: No Dysuria Musculoskeletal: No: back pain, neck pain Neurological: No: Change in speech, Confusion, Numbness, Weakness Objective-Cardiology Exam Last Set of Vital Signs Vital Signs 04/26/16 06:49 Temp 97.0 Pulse 79 Resp 14 B/P 113/65 Pulse Ox 97 O2 Delivery Nasal Cannula O2 Flow Rate 4.00 Capillary Refill : I&O Intake and Output 04/26/16 00:00 Intake Total 2350 ml Output Total 4825 ml Balance -2475 ml Intake Oral 2150 ml IV Total 200 ml Output Urine Total 4825 ml # Voids 2 # Bowel Movements 2 General: Alert, Oriented X3, Cooperative HEENT: Atraumatic, PERRLA Neck: Supple, No JVD, No Thyromegaly Lungs: Clear to Auscultation, Normal Air Movement Heart: Regular Rate, Normal S1, Normal S2, No Murmurs Abdomen: Normal Bowel Sounds, Soft, No Tenderness, No Hepatosplenomegaly, No Masses Extremities: No Clubbing, No Cyanosis, No Edema, Normal Pulses, No Tenderness/ Swelling Skin: No Rashes, No Breakdown, No Significant Lesion Neuro: Normal Gait, Normal Speech, Strength at 5/5 X4 Ext, Normal Tone, Sensation Intact Psych/Mental Status: Mental Status NL, Mood NL Results Lab Laboratory Tests 04/26/16 05:30 A/P-Cardiology Admission Diagnosis Paroxysmal atrial fibrillation Coronary artery disease Hypertension Pneumonia Assessment/Plan Status post respiratory failure - likely combination of COPD, aspiration pneumonia, acute diastolic heart failure, patient is feeling better. Continue on current treatment, continue with physical therapy. Anemia, Status post multiple transfusions, endoscopy was done by Dr. Stephens, reported no active bleeding, ASA restarted yesterday. Continue to monitor closely. Paroxysmal Atrial fibrillation, currently in sinus rhythm. On metoprolol, cannot tolerate oral anticoagulation due to the severe anemia and blood transfusion. Acute diastolic congestive heart failure: normal EF and elevated BNP, responded to diuretics well, maintained on Toprol, enalapril and spironolactone and tolerating it well. Non-ST elevation OR: Plavix currently on hold due to anemia, I will try to start aspirin and monitor H&H Possible left atrial thrombus, full anticoagulation with Lovenox is recommended , currently on hold secondary to anemia. DIAN may be recommended when more stable pulmonary mo. Patient asking to have this done by his primary rn lpn cna as an outpatient Chronic hypomagnesemia, has been on magnesium as an outpatient, Mg+ 0.9 today. I will give Mg+ 3g IV in addition to PO. Continue to monitor closely. Urinary retention, hematuria, cystoscopy done by DAWN Churchill Apr 26, 2016 08:16
--- NOTE | 2016-04-26 08:27 | Cardiology Progress Note ---
Subjective Subjective/Events-last exam patient is laying down in bed, denied any chest pain, still having generalized weakness Objective-Cardiology Exam Last Set of Vital Signs Vital Signs 04/26/16 06:49 Temp 97.0 Pulse 79 Resp 14 B/P 113/65 Pulse Ox 97 O2 Delivery Nasal Cannula O2 Flow Rate 4.00 Capillary Refill : I&O Intake and Output 04/26/16 00:00 Intake Total 2350 ml Output Total 4825 ml Balance -2475 ml Intake Oral 2150 ml IV Total 200 ml Output Urine Total 4825 ml # Voids 2 # Bowel Movements 2 General: Alert, Oriented X3, Cooperative HEENT: Atraumatic, PERRLA Neck: Supple, No JVD, No Thyromegaly Lungs: Clear to Auscultation, Normal Air Movement Heart: Regular Rate, Normal S1, Normal S2, No Murmurs Abdomen: Normal Bowel Sounds, Soft, No Tenderness, No Hepatosplenomegaly, No Masses Extremities: No Clubbing, No Cyanosis, No Edema, Normal Pulses, No Tenderness/ Swelling Skin: No Rashes, No Breakdown, No Significant Lesion Neuro: Normal Gait, Normal Speech, Strength at 5/5 X4 Ext, Normal Tone, Sensation Intact Psych/Mental Status: Mental Status NL, Mood NL Results Lab Laboratory Tests 04/26/16 05:30 A/P-Cardiology Admission Diagnosis Paroxysmal atrial fibrillation Coronary artery disease Hypertension Pneumonia Assessment/Plan Status post respiratory failure - likely combination of COPD, aspiration pneumonia, acute diastolic heart failure, patient is feeling better. Continue on current treatment, continue with physical therapy. Anemia, Status post multiple transfusions, endoscopy was done by Dr. Stephens, reported no active bleeding, ASA restarted yesterday, slight drop in hemoglobin , continue to monitor. Paroxysmal atrial fibrillation, currently in sinus rhythm. On metoprolol, cannot tolerate oral anticoagulation due to the severe anemia and blood transfusion. Acute diastolic congestive heart failure: normal EF and elevated BNP, responded to diuretics well, maintained on Toprol, enalapril and spironolactone and tolerating it well. Non-ST elevation NM: Plavix currently on hold due to anemia, started on aspirin , continue to monitor H&H Possible left atrial thrombus, full anticoagulation with Lovenox is recommended , currently on hold secondary to anemia. DIAN may be recommended when more stable pulmonary mo. Patient asking to have this done by his primary audio experience expert as an outpatient Chronic hypomagnesemia, has been on magnesium as an outpatient, Mg+ 0.9 today. I will give Mg+ 3g IV in addition to PO. Continue to monitor closely. Urinary retention, hematuria, cystoscopy done by PAYTON Daily MD Apr 26, 2016 08:27
[2016-04-26] MEDS: FINASTERIDE (PROSCAR) 5 MG TAB PO SCH (09:18)
[2016-04-26] MEDS: meTOproloL SUCCINATE 50 MG (TOPROL XL) TAB PO SCH ×2 (09:18→20:01)
[2016-04-26] MEDS: NICOTINE 21 MG (NICODERM) PATCH TD SCH (09:18)
[2016-04-26] MEDS: ENALAPRIL 2.5 MG (VASOTEC) TAB PO SCH (09:18)
[2016-04-26] MEDS: SENNA W/DOCUSATE (SENOKOT S) TABLET PO SCH ×2 (09:18→20:01)
[2016-04-26] MEDS: MAGNESIUM 1 GM/100 ML IVPB 100 ML IV SCH ×3 (09:18→11:12)
[2016-04-26] MEDS: ALPRAZolam 0.25 MG (XANAX) TAB PO PRN ×2 (09:18→20:07)
[2016-04-26] MEDS: SPIRONOLACTONE 25 MG (ALDACTONE) TAB PO SCH (09:18)
[2016-04-26] MEDS: ASPIRIN E.C. 81 MG (ECOTRIN) TAB PO SCH (09:19)
[2016-04-26] MEDS: PATCH REMOVAL TP SCH (09:19)
--- NOTE | 2016-04-26 10:06 | Progress Note-Urology ---
Progress Note-Urology Progress Notes/Assess & Plan Progress/Assessment & Plan TOLERATES TORRES FAIRLY WELL KEEP TORRES FOR 14 DAYS FROM STARTING FLOMAX Final Diagnosis URINE RETENTION AIXA OLIVERA MD Apr 26, 2016 10:06 am
--- NOTE | 2016-04-26 10:41 | Progress Note (SOAP) ---
Subjective Subjective/Events-last exam doing ok. tolerating diet. not clinically bleeding. decreased Hb however likely lab variable. Objective Exam Vital Signs Date Time Temp Pulse Resp B/P Pulse Ox O2 Delivery O2 Flow Rate FiO2 04/26/16 08:00 97.7 92 20 110/68 95 Nasal Cannula 4.00 04/26/16 07:40 95 Nasal Cannula 4.00 04/26/16 06:49 97.0 79 14 113/65 97 Nasal Cannula 4.00 04/26/16 06:34 92 4.00 04/26/16 06:26 95 4.00 04/26/16 02:02 95 4.00 04/25/16 22:16 94 4.00 04/25/16 21:40 98.0 91 16 110/65 96 Nasal Cannula 4.00 04/25/16 20:10 94 Nasal Cannula 4.00 04/25/16 18:35 4.00 04/25/16 18:30 97 4.00 04/25/16 18:00 97.6 84 18 115/68 98 Nasal Cannula 4.00 04/25/16 15:22 94 4.00 04/25/16 10:55 94 4.00 I & O 04/26/16 07:00 Intake Total 2400 ml Output Total 4675 ml Balance -2275 ml Capillary Refill : General Appearance: No Apparent Distress HEENT: PERRL/EOMI Neck: Full Range of Motion Respiratory: Chest Non Tender Rhonci Wheezing Cardiovascular: Regular Rate, Rhythm Gastrointestinal: normal bowel sounds non tender soft Extremity: Normal Capillary Refill Neurologic/Psychiatric: Alert Oriented x3 Skin: Normal Color Lymphatic: No Adenopathy Results Lab Laboratory Tests 04/26/16 05:30: Hematocrit 26L, Hemoglobin 8.3L, Magnesium Level 0.9*L, Mean Corpuscular Hemoglobin 31, Mean Corpuscular Hemoglobin Concent 31L, Mean Corpuscular Volume 97, Mean Platelet Volume 9.8, Platelet Count 661H, Red Blood Count 2.71L, Red Cell Distribution Width 14.9H, White Blood Count 9.4 Assessment/Plan Assessment/Plan Assess & Plan/Chief Complaint SBO s/p SARAH and small bowel resection. upper GI bleed s/p EGD with bx. Hb relatively stable. await gastrin result for suspicion hypergastrinemia. continue protonix and carafate for now. KIDO,TAKAAKI MD Apr 26, 2016 10:41 am
--- NOTE | 2016-04-26 11:54 | Physical Therapy Daily Note ---
PT Daily Note-Current Subjective Patient voices frustration with medical condition. However, agrees to PT. Pain Numeric Pain Scale: 0-No Pain Location: No Pain Reported Mental Status Patient Orientation: Normal For Age Attachments: Oxygen, Helms Catheter, IV Transfers Functional [place] Measure 0=Not Assessed/NA 4=Minimal Assistance 1=Total Assistance 5=Supervision or Setup 2=Maximal Assistance 6=Modified [place] 3=Moderate Assistance 7=Complete IndependenceIRFPAI Quality Coding Scale 6 Independent with activity with or without an assistive device 5 Patient requires set up or clean up by helper. Patient completes activity by themselves 4 Supervision or touching assist (CGA). [place] provide cues , steadying assist 3 The helper provides less than half the effort to complete the activity 2 The helper provides more than half the effort to complete the activity 1 Dependent. The helper does all the effort to complete an activity 7 Patient refused to complete or attempt activity 9 The patient did not perform the activity before the current illness or injury 88 Not attempted due to Medical conditions or safety concerns Transfers (B, C, W/C) (FIM): 6 Scootin Roll Left to Right (QC): 6 Supine to/from Sit: 6 Sit to/from Stand: 6 Sit to Lying (QC): 6 Sit to Stand (QC): 6 Gait Training Does the Patient Walk?: Yes Gait (FIM): 6 Distance (FIM): 3=150 ft Distance: 800' Walk 50 ft with 2 Turns(QC): 6 Walk 150 ft (QC): 6 Gait Level of Assist: 6 Gait Assistive Device: Cane Single Point steady, safe and functional Assessment Patient demonstrated decreased dayday today due to decrease in Mag. and Hgb. Patient tolerated treatment well and PT will continue with POC. PT Fdc Goals Pantograph Operator Goals PT Pantograph Operator Goals Time Frame: Apr 30, 2016 Transfers (B,C,W/C) (FIM): 6 Sit to Lying (QC): 6 Lying-Sitting on Side/Bed(QC): 6 Sit to Stand (QC): 6 Rollin Does the Patient Walk: Yes Gait (FIM): 6 Distance: 1000' Walk 50ft with 2 Turns (QC): 6 Walk 150 ft (QC): 6 Gait Level of Assist: 6 Gait Assistive Device: Cane Single Point PT Plan Treatment/Plan Treatment Plan: Continue Plan of Care Treatment Plan: Education, Functional Activity Kris, Functional Strength, Gait , Safety, Therapeutic Exercise, Transfers Treatment Duration: Apr 30, 2016 Visits Per Week: 5-6 Minutes/Day (M-F): 15-30 Minutes/Day (Sat/[place]): 15-30 Time/GCodes Time In: 1110 Time Out: 1125 Total Billed Treatment Time: 15 Total Billed Treatment 1 visit FA 15 min JESS LAZCANO PT Apr 26, 2016 11:54
[2016-04-26] MEDS ORDERED: MAGNESIUM 1 GM/100 ML IVPB 100 ML IV ONE (17:45)
[2016-04-26] MEDS: ALFUZOSIN HCL 10 MG TAB (UROXATRAL) PO SCH (17:54)
[2016-04-26] MEDS ORDERED: MAGNESIUM OXIDE (MAG-OX)400 MG TAB PO SCH (18:00)
[2016-04-26 20:00] VITALS: BP 116/56
[2016-04-26] MEDS: ATORVASTATIN 20 MG (LIPITOR) TABLET PO SCH (20:01)
--- NOTE | 2016-04-26 21:31 | Progress Note (SOAP) ---
Subjective Subjective/Events-last exam Fwup small bowel obstruction--S/P exploratory lab with small bowel resection and reanastamosis, acute renal failure--worsened since surgery, dehydration, COPD, Atrial fibrillation with RVR, Post-op VDRF with aspiration pneumonia, NSTEMI, acute anemia. BMs still light brown color per patient but hemoglobin has dropped with restart of low dose aspirin. Objective Exam Vital Signs Date Time Temp Pulse Resp B/P Pulse Ox O2 Delivery O2 Flow Rate FiO2 04/26/16 20:00 98.2 93 20 116/56 97 Nasal Cannula 4.00 04/26/16 19:45 98 4.00 04/26/16 19:37 94 4.00 04/26/16 14:26 97 4.00 04/26/16 10:36 96 4.00 04/26/16 08:00 97.7 92 20 110/68 95 Nasal Cannula 4.00 04/26/16 07:40 95 Nasal Cannula 4.00 04/26/16 06:49 97.0 79 14 113/65 97 Nasal Cannula 4.00 04/26/16 06:34 92 4.00 04/26/16 06:26 95 4.00 04/26/16 02:02 95 4.00 04/25/16 22:16 94 4.00 04/25/16 21:40 98.0 91 16 110/65 96 Nasal Cannula 4.00 I & O 04/26/16 07:00 Intake Total 2400 ml Output Total 4675 ml Balance -2275 ml Capillary Refill : General Appearance: No Apparent Distress Neck: Supple Respiratory: Lungs Clear Cardiovascular: Regular Rate, Rhythm Systolic Murmur Gastrointestinal: normal bowel sounds non tender soft Extremity: Non Tender No Calf Tenderness No Pedal Edema Neurologic/Psychiatric: Alert Oriented x3 Skin: Pallor Results Lab Laboratory Tests 04/26/16 05:30: Hematocrit 26L, Hemoglobin 8.3L, Magnesium Level 0.9*L, Mean Corpuscular Hemoglobin 31, Mean Corpuscular Hemoglobin Concent 31L, Mean Corpuscular Volume 97, Mean Platelet Volume 9.8, Platelet Count 661H, Red Blood Count 2.71L, Red Cell Distribution Width 14.9H, White Blood Count 9.4 04/26/16 16:15: Magnesium Level 1.5L Assessment/Plan Assessment/Plan Assess & Plan/Chief Complaint 1. Acute Respiratory Distress with recent aspiration pneumonia--back on NC and CXR stable 2. NSTEMI--cardiology following, restarted low dose aspirin yesterday 3. Small Bowel Obstruction--S/P exp lap with SARAH and small bowel resection with reanastamosis--tolerating regular diet with normal BMs 4. Atrial Fibrillation with RVR--back in NSR 5. Hypomagnesemia-- Mg replacement today and recheck in AM 6. Worsening Post-op Anemia--H/H dropped today after start of 81mg aspirin so will recheck in AM, EGD showed no active bleeding 7. Weakness--continue PT 8. Urinary retention--continue urecholine and flomax AIME CANO DO Apr 26, 2016 9:31 pm
[2016-04-27] MEDS: NYSTATIN ORAL SUSP 5 ML UDC PO SCH ×5 (00:51→23:39)
[2016-04-27] MEDS: RT-ALBUTEROL/IPRATROPIUM 3 ML (DUONEB) VIAL INH SCH ×6 (02:27→22:29)
[2016-04-27] MEDS: PANTOPRAZOLE 40 MG (PROTONIX) TAB PO SCH ×2 (06:01→18:29)
[2016-04-27] MEDS: MULTIVIT W/MINERALS TAB (THERAGRAN M) PO SCH (06:01)
[2016-04-27] MEDS: SUCRALFATE 1 GM (CARAFATE) TAB PO SCH ×4 (06:01→20:23)
[2016-04-27] MEDS: THIAMINE 100 MG (VITAMIN B-1) TAB PO SCH (06:01)
[2016-04-27] MEDS: LEVOTHYROXINE 50 MCG (LEVOTHROID) TAB PO SCH (06:01)
[2016-04-27] MEDS: BETHANECHOL 25 MG (URECHOLINE) TAB PO SCH ×4 (06:01→20:23)
[2016-04-27] MEDS: CATHETER FLUSH 10 ML SYR IV PRN (06:02)
[2016-04-27] MEDS: RT-BUDESONIDE NEBS 0.5 MG/2ML (PULMICORT) AMP INH SCH ×2 (06:45→18:52)
[2016-04-27 07:13] LABS: BASOPHILS # (AUTO) 0.1 10^3/uL (0.0-0.1); BASOPHILS % (AUTO) 1 % (0-10); EOSINOPHILS # (AUTO) 0.8 10^3/uL (0.0-0.3); EOSINOPHILS % (AUTO) 8 % (0-10); LYMPHOCYTES # (AUTO) 1.5 X 10^3 (1.0-4.0); LYMPHOCYTES % (AUTO) 16 % (12-44); MEAN CORPUSCULAR HEMOGLOBIN 30 PG (25-34); MEAN CORPUSCULAR HGB CONC 31 G/DL (32-36); MEAN CORPUSCULAR VOLUME 98 FL (80-99); MEAN PLATELET VOLUME 9.8 FL (7.4-10.4); MONOCYTES # (AUTO) 1.1 X 10^3 (0.0-1.0); MONOCYTES % (AUTO) 11 % (0-12); NEUTROPHILS # (AUTO) 6.4 X 10^3 (1.8-7.8); NEUTROPHILS % (AUTO) 65 % (42-75); PLATELET COUNT 686 10^3/uL (130-400); RED CELL DISTRIBUTION WIDTH 14.8 % (10.0-14.5); WHITE BLOOD COUNT 9.8 10^3/uL (4.3-11.0)
[2016-04-27 07:20] LABS: ANION GAP 8 MMOL/L (5-14); BLOOD UREA NITROGEN 14 MG/DL (7-18); BUN/CREATININE RATIO 14; CALCIUM 8.1 MG/DL (8.5-10.1); CARBON DIOXIDE 26 MMOL/L (21-32); CHLORIDE 102 MMOL/L (98-107); CREATININE SERUM 1.03 MG/DL (0.60-1.30); GFR ESTIMATED > 60; GLUCOSE 93 MG/DL (70-105); MAGNESIUM 1.4 MG/DL (1.8-2.4); SODIUM 136 MMOL/L (135-145)
[2016-04-27 08:00] VITALS: BP 93/50
--- NOTE | 2016-04-27 08:34 | Cardiology Progress Note ---
Subjective Subjective/Events-last exam Patient in bed. No new complaints. Denies any CP or dyspnea. Review of Systems General: No Night Sweats, Fatigue Malaise HEENT: No Visual Changes, No Dysphasia, No Sore Throat Pulmonary: No Dyspnea, No Cough Cardiovascular: No: Chest Pain, Edema, Palpitations, Paroxysmal Noc. Dyspnea Gastrointestinal: No: Abdominal Pain, Constipation, Nausea, Vomiting Genitourinary: No Dysuria, No Frequency Musculoskeletal: No: back pain, neck pain Neurological: : WeaknessNo: Change in speech, Confusion, Numbness Objective-Cardiology Exam Last Set of Vital Signs Vital Signs 04/26/16 04/26/16 04/27/16 20:00 20:15 06:45 Temp 98.2 Pulse 93 Resp 20 B/P 116/56 Pulse Ox 98 O2 Delivery Nasal Cannula O2 Flow Rate 3.50 Capillary Refill : I&O Intake and Output 04/27/16 00:00 Intake Total 2824 ml Output Total 2625 ml Balance 199 ml Intake Oral 2524 ml IV Total 300 ml Output Urine Total 2625 ml # Bowel Movements 3 General: Alert, Oriented X3, Cooperative HEENT: Atraumatic, PERRLA Neck: Supple, No JVD, No Thyromegaly Lungs: Clear to Auscultation, Normal Air Movement Heart: Regular Rate, Normal S1, Normal S2, No Murmurs Abdomen: Normal Bowel Sounds, Soft, No Tenderness, No Hepatosplenomegaly, No Masses Extremities: No Clubbing, No Cyanosis, No Edema, Normal Pulses, No Tenderness/ Swelling Skin: No Rashes, No Breakdown, No Significant Lesion Neuro: Normal Gait, Normal Speech, Strength at 5/5 X4 Ext, Normal Tone, Sensation Intact Psych/Mental Status: Mental Status NL, Mood NL Results Lab Laboratory Tests 04/27/16 06:50 A/P-Cardiology Admission Diagnosis Paroxysmal atrial fibrillation Coronary artery disease Hypertension Pneumonia Assessment/Plan Status post respiratory failure - likely combination of COPD, aspiration pneumonia, acute diastolic heart failure, patient is feeling better. Continue on current treatment, continue with physical therapy. Anemia, Status post multiple transfusions, endoscopy was done by Dr. Stephens, reported no active bleeding, ASA restarted, hgb stable, continue to monitor closely. Paroxysmal atrial fibrillation, currently in sinus rhythm. On metoprolol, cannot tolerate oral anticoagulation due to the severe anemia and blood transfusion. Acute diastolic congestive heart failure: normal EF and elevated BNP, responded to diuretics well, maintained on Toprol, enalapril and spironolactone and tolerating it well. Non-ST elevation [place]: Plavix currently on hold due to anemia, started on aspirin , continue to monitor H&H Possible left atrial thrombus, full anticoagulation with Lovenox is recommended , currently on hold secondary to anemia. DIAN may be recommended when more stable pulmonary mo. Patient asking to have this done by his primary pasteurizer, Dr. Duran, as an outpatient Chronic hypomagnesemia, has been on magnesium as an outpatient, received transfusion yesterday. Continue to monitor. Urinary retention, hematuria, cystoscopy done by DAWN Churchill Apr 27, 2016 08:34
[2016-04-27] MEDS: FINASTERIDE (PROSCAR) 5 MG TAB PO SCH (08:47)
[2016-04-27] MEDS: NICOTINE 21 MG (NICODERM) PATCH TD SCH (08:47)
[2016-04-27] MEDS: SPIRONOLACTONE 25 MG (ALDACTONE) TAB PO SCH (08:47)
[2016-04-27] MEDS: meTOproloL SUCCINATE 50 MG (TOPROL XL) TAB PO SCH ×2 (08:47→20:23)
[2016-04-27] MEDS: ASPIRIN E.C. 81 MG (ECOTRIN) TAB PO SCH (08:47)
[2016-04-27] MEDS: SENNA W/DOCUSATE (SENOKOT S) TABLET PO SCH ×2 (08:47→20:23)
[2016-04-27] MEDS: ENALAPRIL 2.5 MG (VASOTEC) TAB PO SCH (08:47)
[2016-04-27] MEDS: PATCH REMOVAL TP SCH (08:47)
[2016-04-27] MEDS: MAGNESIUM 1 GM/100 ML IVPB 100 ML IV SCH ×2 (08:48→10:00)
[2016-04-27] MEDS: ALPRAZolam 0.25 MG (XANAX) TAB PO PRN ×2 (09:17→20:23)
[2016-04-27] MEDS: KCL 10 MEQ TAB (MICRO K) PO SCH (11:35)
[2016-04-27] MEDS: FUROSEMIDE 40 MG (LASIX) TAB PO SCH (11:35)
--- NOTE | 2016-04-27 13:32 | Physical Therapy Daily Note ---
PT Daily Note-Current Subjective Kraig reports SOB with amb but recovers quickly. He has already been walking with his using portable O2 without any problems. He doesn't anticipate any problems going home in regards to mobility. Pain Numeric Pain Scale: 0-No Pain Mental Status Patient Orientation: Person, Place, Time, Situation Transfers Functional [place] Measure 0=Not Assessed/NA 4=Minimal Assistance 1=Total Assistance 5=Supervision or Setup 2=Maximal Assistance 6=Modified [place] 3=Moderate Assistance 7=Complete IndependenceIRFPAI Quality Coding Scale 6 Independent with activity with or without an assistive device 5 Patient requires set up or clean up by helper. Patient completes activity by themselves 4 Supervision or touching assist (CGA). [place] provide cues , steadying assist 3 The helper provides less than half the effort to complete the activity 2 The helper provides more than half the effort to complete the activity 1 Dependent. The helper does all the effort to complete an activity 7 Patient refused to complete or attempt activity 9 The patient did not perform the activity before the current illness or injury 88 Not attempted due to Medical conditions or safety concerns Transfers (B, C, W/C) (FIM): 6 Scootin Indep transfers from bed, toilet and chair. Gait Training Gait (FIM): 5 Kraig amb independently with straight cane over 300 ft with assist for portable O2 @ 3L. Longstanding uneven gait pattern. Exercises Seated Therapy Exercises: Pelvic tilt Assessment Current Status: Good Progress Functionally independent for home mobility. Pale and SOB after walking 300 ft with cane. PT Journalism Professor Goals Journalism Professor Goals PT Journalism Professor Goals Time Frame: Apr 30, 2016 Transfers (B,C,W/C) (FIM): 6 Sit to Lying (QC): 6 Lying-Sitting on Side/Bed(QC): 6 Sit to Stand (QC): 6 Rollin Does the Patient Walk: Yes Gait (FIM): 6 Distance: 1000' Walk 50ft with 2 Turns (QC): 6 Walk 150 ft (QC): 6 Gait Level of Assist: 6 Gait Assistive Device: Cane Single Point PT Plan Treatment/Plan Treatment Plan: Continue Plan of Care Treatment Plan: Education, Functional Activity Kris, Functional Strength, Gait , Safety, Therapeutic Exercise, Transfers Treatment Duration: Apr 30, 2016 Visits Per Week: 5-6 Minutes/Day (M-F): 15-30 Minutes/Day (Sat/[place]): 15-30 Pt/Family Agrees w/Plan: Yes Time/GCodes Time In: 110 Time Out: 125 Total Billed Treatment Time: 15 Total Billed Treatment Visit, nakul G Codes Necessary: No RUDI VANN PT Apr 27, 2016 13:32
--- NOTE | 2016-04-27 15:12 | Cardiology Progress Note ---
Subjective Subjective/Events-last exam patient is laying down in bed, no new complaint, denied any chest pain or shortness of Review of Systems General: No Chills, No Night Sweats, No Fatigue, No Malaise, No Appetite, No Other HEENT: No Head Aches, No Visual Changes, No Eye Pain, No Ear Pain, No Dysphasia , No Sinus Congestion, No Post Nasal Drip, No Sore Throat, No Other Pulmonary: No Dyspnea, No Cough, No Pleuritic Chest Pain, No Other Cardiovascular: No: Chest Pain, Edema, Lt Headedness, Orthopnea, Other, Palpitations, Paroxysmal Noc. Dyspnea Objective-Cardiology Exam Last Set of Vital Signs Vital Signs 04/27/16 04/27/16 04/27/16 08:00 08:20 10:16 Temp 97.9 Pulse 90 Resp 20 B/P 93/50 Pulse Ox 97 O2 Delivery Nasal Cannula O2 Flow Rate 3.00 Capillary Refill : I&O Intake and Output 04/27/16 00:00 Intake Total 2824 ml Output Total 2625 ml Balance 199 ml Intake Oral 2524 ml IV Total 300 ml Output Urine Total 2625 ml # Bowel Movements 3 General: Alert, Oriented X3, Cooperative HEENT: Atraumatic, PERRLA Neck: Supple, No JVD, No Thyromegaly Lungs: Clear to Auscultation, Normal Air Movement Heart: Regular Rate, Normal S1, Normal S2, No Murmurs Abdomen: Normal Bowel Sounds, Soft, No Tenderness, No Hepatosplenomegaly, No Masses Extremities: No Clubbing, No Cyanosis, No Edema, Normal Pulses, No Tenderness/ Swelling Skin: No Rashes, No Breakdown, No Significant Lesion Neuro: Normal Gait, Normal Speech, Strength at 5/5 X4 Ext, Normal Tone, Sensation Intact Psych/Mental Status: Mental Status NL, Mood NL Results Lab Laboratory Tests 04/27/16 06:50 A/P-Cardiology Admission Diagnosis Paroxysmal atrial fibrillation Coronary artery disease Hypertension Pneumonia Assessment/Plan Status post respiratory failure - likely combination of COPD, aspiration pneumonia, acute diastolic heart failure, patient is feeling better. Continue on current treatment, continue with physical therapy. Anemia, Status post multiple transfusions, endoscopy was done by Dr. Stephens, reported no active bleeding, ASA restarted, hgb stable, continue to monitor closely. Paroxysmal atrial fibrillation, currently in sinus rhythm. On metoprolol, cannot tolerate oral anticoagulation due to the severe anemia and blood transfusion. Acute diastolic congestive heart failure: normal EF and elevated BNP, responded to diuretics well, maintained on Toprol, enalapril and spironolactone and tolerating it well. Non-ST elevation [place]: Plavix currently on hold due to anemia, started on aspirin , continue to monitor H&H Possible left atrial thrombus, full anticoagulation with Lovenox is recommended , currently on hold secondary to anemia. DIAN may be recommended when more stable pulmonary mo. Patient asking to have this done by his primary template maker, Dr. Duran, as an outpatient Chronic hypomagnesemia, has been on magnesium as an outpatient, continue to monitor. Urinary retention, hematuria, cystoscopy done by PAYTON Daily MD Apr 27, 2016 15:12
[2016-04-27] MEDS: ALFUZOSIN HCL 10 MG TAB (UROXATRAL) PO SCH (18:29)
--- NOTE | 2016-04-27 19:23 | Progress Note (SOAP) ---
Subjective Subjective/Events-last exam Fwup small bowel obstruction--S/P exploratory lab with small bowel resection and reanastamosis, COPD, Atrial fibrillation, NSTEMI, acute anemia. BMs still light brown color per patient with restart of low dose aspirin. Objective Exam Vital Signs Date Time Temp Pulse Resp B/P Pulse Ox O2 Delivery O2 Flow Rate FiO2 04/27/16 18:54 3.00 04/27/16 18:53 97 3.00 04/27/16 15:30 97 3.00 04/27/16 10:16 97 3.00 04/27/16 08:20 Nasal Cannula 4.00 04/27/16 08:00 97.9 90 20 93/50 97 Nasal Cannula 4.00 04/27/16 06:45 98 3.50 04/27/16 02:29 98 4.00 04/26/16 23:09 95 4.00 04/26/16 20:15 94 Nasal Cannula 4.00 04/26/16 20:00 98.2 93 20 116/56 97 Nasal Cannula 4.00 04/26/16 19:45 98 4.00 04/26/16 19:37 94 4.00 I & O 04/27/16 07:00 Intake Total 2924 ml Output Total 2375 ml Balance 549 ml Capillary Refill : General Appearance: No Apparent Distress Neck: Supple Respiratory: Lungs Clear Cardiovascular: Regular Rate, Rhythm Systolic Murmur Gastrointestinal: normal bowel sounds non tender soft Extremity: Non Tender No Calf Tenderness No Pedal Edema Neurologic/Psychiatric: Alert Oriented x3 Skin: Pallor Results Lab Laboratory Tests 04/27/16 06:50: Anion Gap 8, BUN/Creatinine Ratio 14, Basophils # (Auto) 0.1, Basophils (%) ( Auto) 1, Blood Urea Nitrogen 14, Calcium Level 8.1L, Carbon Dioxide Level 26, Chloride Level 102, Creatinine 1.03, Eosinophils # (Auto) 0.8H, Eosinophils (%) (Auto) 8, Estimat Glomerular Filtration Rate > 60, Glucose Level 93, Hematocrit 27L, Hemoglobin 8.5L, Lymphocytes # (Auto) 1.5, Lymphocytes (%) (Auto) 16, Magnesium Level 1.4L, Mean Corpuscular Hemoglobin 30, Mean Corpuscular Hemoglobin Concent 31L, Mean Corpuscular Volume 98, Mean Platelet Volume 9.8, Monocytes # (Auto) 1.1H, Monocytes (%) (Auto) 11, Neutrophils # (Auto) 6.4, Neutrophils (%) (Auto) 65, Platelet Count 686H, Potassium Level 4.0, Red Blood Count 2.80L, Red Cell Distribution Width 14.8H, Sodium Level 136, White Blood Count 9.8 Assessment/Plan Assessment/Plan Assess & Plan/Chief Complaint 1. Acute Respiratory Distress with recent aspiration pneumonia--back on NC and CXR stable 2. NSTEMI--cardiology following, restarted low dose aspirin 3. Small Bowel Obstruction--S/P exp lap with SARAH and small bowel resection with reanastamosis--tolerating regular diet with normal BMs 4. Atrial Fibrillation with RVR--back in NSR 5. Hypomagnesemia-- Mg replacement today and recheck in AM 6. Worsening Post-op Anemia--H/H improved today after start of 81mg aspirin so will recheck in AM, EGD showed no active bleeding 7. Weakness--continue PT 8. Urinary retention--continue urecholine and flomax AIME CANO DO Apr 27, 2016 19:23
[2016-04-27 20:00] VITALS: BP 108/55
[2016-04-27] MEDS: ATORVASTATIN 20 MG (LIPITOR) TABLET PO SCH (20:23)
[2016-04-28] MEDS: RT-ALBUTEROL/IPRATROPIUM 3 ML (DUONEB) VIAL INH SCH ×6 (02:17→22:12)
[2016-04-28] MEDS: NYSTATIN ORAL SUSP 5 ML UDC PO SCH ×4 (06:05→23:43)
[2016-04-28] MEDS: PANTOPRAZOLE 40 MG (PROTONIX) TAB PO SCH ×2 (06:05→17:50)
[2016-04-28] MEDS: BETHANECHOL 25 MG (URECHOLINE) TAB PO SCH ×4 (06:05→20:09)
[2016-04-28] MEDS: SUCRALFATE 1 GM (CARAFATE) TAB PO SCH ×4 (06:06→20:09)
[2016-04-28] MEDS: THIAMINE 100 MG (VITAMIN B-1) TAB PO SCH (06:06)
[2016-04-28] MEDS: MULTIVIT W/MINERALS TAB (THERAGRAN M) PO SCH (06:06)
[2016-04-28] MEDS: LEVOTHYROXINE 50 MCG (LEVOTHROID) TAB PO SCH (06:06)
[2016-04-28 06:24] LABS: BASOPHILS # (AUTO) 0.1 10^3/uL (0.0-0.1); BASOPHILS % (AUTO) 1 % (0-10); EOSINOPHILS # (AUTO) 0.8 10^3/uL (0.0-0.3); EOSINOPHILS % (AUTO) 7 % (0-10); LYMPHOCYTES % (AUTO) 19 % (12-44); MEAN CORPUSCULAR HEMOGLOBIN 30 PG (25-34); MEAN CORPUSCULAR HGB CONC 31 G/DL (32-36); MEAN CORPUSCULAR VOLUME 97 FL (80-99); MEAN PLATELET VOLUME 9.7 FL (7.4-10.4); MONOCYTES % (AUTO) 10 % (0-12); NEUTROPHILS # (AUTO) 6.5 X 10^3 (1.8-7.8); NEUTROPHILS % (AUTO) 63 % (42-75); PLATELET COUNT 743 10^3/uL (130-400); RED CELL DISTRIBUTION WIDTH 14.7 % (10.0-14.5); WHITE BLOOD COUNT 10.3 10^3/uL (4.3-11.0)
[2016-04-28] MEDS: RT-BUDESONIDE NEBS 0.5 MG/2ML (PULMICORT) AMP INH SCH ×2 (07:34→19:14)
[2016-04-28 08:00] VITALS: BP 99/64
[2016-04-28] MEDS: PATCH REMOVAL TP SCH (09:06)
[2016-04-28] MEDS: MAGNESIUM 1 GM/100 ML IVPB 100 ML IV SCH ×2 (09:09→10:27)
[2016-04-28] MEDS: diphenhydrAMINE 50 MG/ML INJ (BENADRYL) IVP SCH (09:10)
[2016-04-28] MEDS: meTOproloL SUCCINATE 50 MG (TOPROL XL) TAB PO SCH ×2 (09:10→20:09)
[2016-04-28] MEDS: ENALAPRIL 2.5 MG (VASOTEC) TAB PO SCH (09:10)
[2016-04-28] MEDS: NICOTINE 21 MG (NICODERM) PATCH TD SCH (09:11)
[2016-04-28] MEDS: ASPIRIN E.C. 81 MG (ECOTRIN) TAB PO SCH (09:11)
[2016-04-28] MEDS: FINASTERIDE (PROSCAR) 5 MG TAB PO SCH (09:11)
[2016-04-28] MEDS: SPIRONOLACTONE 25 MG (ALDACTONE) TAB PO SCH (09:11)
[2016-04-28] MEDS: SENNA W/DOCUSATE (SENOKOT S) TABLET PO SCH ×2 (09:11→20:09)
[2016-04-28] MEDS: ALPRAZolam 0.25 MG (XANAX) TAB PO PRN ×2 (09:11→20:11)
--- NOTE | 2016-04-28 09:25 | Physical Therapy Daily Note ---
PT Daily Note-Current Subjective Patient agrees to PT. Pain Numeric Pain Scale: 0-No Pain Location: No Pain Reported Mental Status Patient Orientation: Normal For Age Attachments: Oxygen Transfers Functional [place] Measure 0=Not Assessed/NA 4=Minimal Assistance 1=Total Assistance 5=Supervision or Setup 2=Maximal Assistance 6=Modified [place] 3=Moderate Assistance 7=Complete IndependenceIRFPAI Quality Coding Scale 6 Independent with activity with or without an assistive device 5 Patient requires set up or clean up by helper. Patient completes activity by themselves 4 Supervision or touching assist (CGA). [place] provide cues , steadying assist 3 The helper provides less than half the effort to complete the activity 2 The helper provides more than half the effort to complete the activity 1 Dependent. The helper does all the effort to complete an activity 7 Patient refused to complete or attempt activity 9 The patient did not perform the activity before the current illness or injury 88 Not attempted due to Medical conditions or safety concerns Transfers (B, C, W/C) (FIM): 7 Scootin Roll Left to Right (QC): 6 Supine to/from Sit: 7 Sit to/from Stand: 7 Sit to Lying (QC): 6 Sit to Stand (QC): 6 Gait Training Does the Patient Walk?: Yes Gait (FIM): 7 Distance (FIM): 3=150 ft Distance: 1000' Walk 50 ft with 2 Turns(QC): 6 Walk 150 ft (QC): 6 Gait Level of Assist: 7 Gait Assistive Device: Cane Single Point safe and functional Assessment Patient desires to return to home on this date. From a PT standpoint, patient is at PLOF with all gross motor skills. PT Shelter Goals Home Teaching Grades 7 And 8 Teacher Goals PT Shelter Goals Time Frame: Apr 30, 2016 Transfers (B,C,W/C) (FIM): 6 Sit to Lying (QC): 6 Lying-Sitting on Side/Bed(QC): 6 Sit to Stand (QC): 6 Rollin Does the Patient Walk: Yes Gait (FIM): 6 Distance: 1000' Walk 50ft with 2 Turns (QC): 6 Walk 150 ft (QC): 6 Gait Level of Assist: 6 Gait Assistive Device: Cane Single Point PT Plan Treatment/Plan Treatment Plan: Continue Plan of Care Treatment Plan: Education, Functional Activity Kris, Functional Strength, Gait , Safety, Therapeutic Exercise, Transfers Treatment Duration: Apr 30, 2016 Visits Per Week: 5-6 Minutes/Day (M-F): 15-30 Minutes/Day (Sat/[place]): 15-30 Time/GCodes Time In: 851 Time Out: 906 Total Billed Treatment Time: 15 Total Billed Treatment 1 visit FA 15 min JESS LAZCANO PT Apr 28, 2016 09:25
[2016-04-28] MEDS: MAGNESIUM 1 GM/100 ML IVPB 200 ML IV SCH (10:26)
--- NOTE | 2016-04-28 11:07 | Progress Note-Urology ---
Progress Note-Urology Progress Notes/Assess & Plan Progress/Assessment & Plan PATIENT HAS BEEN ON FLOMAX ONE WEEK, TOV EARLY AM TOMORROW Final Diagnosis URINE RETENTION AIXA OLIVERA MD Apr 28, 2016 11:07 am
--- NOTE | 2016-04-28 13:01 | Progress Note (SOAP) ---
Subjective Subjective/Events-last exam Fwup small bowel obstruction--S/P exploratory lab with small bowel resection and reanastamosis, COPD, Atrial fibrillation, NSTEMI, acute anemia. H/H stable. Wants to go home. Objective Exam Vital Signs Date Time Temp Pulse Resp B/P Pulse Ox O2 Delivery O2 Flow Rate FiO2 04/28/16 10:40 94 3.00 04/28/16 08:00 97.7 94 16 99/64 99 Nasal Cannula 4.00 04/28/16 08:00 Nasal Cannula 4.00 04/28/16 07:39 91 3.00 04/28/16 07:33 93 3.00 04/28/16 02:17 96 3.00 04/27/16 22:30 95 3.00 04/27/16 20:00 97.9 93 20 108/55 97 Nasal Cannula 4.00 04/27/16 18:54 3.00 04/27/16 18:53 97 3.00 04/27/16 15:30 97 3.00 I & O 04/28/16 07:00 Intake Total 1970 ml Output Total 4400 ml Balance -2430 ml Capillary Refill : General Appearance: No Apparent Distress Neck: Supple Respiratory: Lungs Clear Cardiovascular: Regular Rate, Rhythm Systolic Murmur Gastrointestinal: normal bowel sounds non tender soft Extremity: Non Tender No Calf Tenderness No Pedal Edema Neurologic/Psychiatric: Alert Oriented x3 Skin: Pallor Results Lab Laboratory Tests 04/28/16 06:04: Basophils # (Auto) 0.1, Basophils (%) (Auto) 1, Eosinophils # (Auto) 0.8H, Eosinophils (%) (Auto) 7, Hematocrit 30L, Hemoglobin 9.4L, Lymphocytes # (Auto) 2.0, Lymphocytes (%) (Auto) 19, Magnesium Level 1.5L, Mean Corpuscular Hemoglobin 30, Mean Corpuscular Hemoglobin Concent 31L, Mean Corpuscular Volume 97, Mean Platelet Volume 9.7, Monocytes # (Auto) 1.0, Monocytes (%) (Auto) 10, Neutrophils # (Auto) 6.5, Neutrophils (%) (Auto) 63, Platelet Count 743H, Red Blood Count 3.10L, Red Cell Distribution Width 14.7H, White Blood Count 10.3 Assessment/Plan Assessment/Plan Assess & Plan/Chief Complaint 1. Acute Respiratory Distress with recent aspiration pneumonia--back on NC and CXR stable 2. NSTEMI--cardiology following, restarted low dose aspirin 3. Small Bowel Obstruction--S/P exp lap with SARAH and small bowel resection with reanastamosis--tolerating regular diet with normal BMs 4. Atrial Fibrillation with RVR--back in NSR 5. Hypomagnesemia-- Mg replacement today and recheck in AM 6. Worsening Post-op Anemia--H/H improved today after start of 81mg aspirin so will recheck in AM, EGD showed no active bleeding 7. Weakness--continue PT 8. Urinary retention--continue urecholine and flomax, stay through tomorrow to see if can DC ortiz catheter AIME CANO DO Apr 28, 2016 1:01 pm
--- NOTE | 2016-04-28 13:12 | Cardiology Progress Note ---
Subjective Subjective/Events-last exam Patient in bed. No new complaints. Denies any CP or dyspnea. Asking to go home. Review of Systems General: No Night Sweats, No Fatigue, No Malaise HEENT: No Visual Changes, No Dysphasia, No Sore Throat Pulmonary: No Dyspnea, No Cough Cardiovascular: No: Chest Pain, Edema, Orthopnea, Palpitations, Paroxysmal Noc. Dyspnea Gastrointestinal: No: Abdominal Pain, Nausea, Vomiting Genitourinary: No Dysuria, No Frequency Musculoskeletal: No: neck pain Neurological: : WeaknessNo: Change in speech, Confusion, Numbness Objective-Cardiology Exam Last Set of Vital Signs Vital Signs 04/28/16 10:40 Pulse Ox 94 O2 Flow Rate 3.00 Capillary Refill : I&O Intake and Output 04/28/16 00:00 Intake Total 2320 ml Output Total 4550 ml Balance -2230 ml Intake Oral 2320 ml Output Urine Total 4550 ml General: Alert, Oriented X3, Cooperative HEENT: Atraumatic, PERRLA Neck: Supple, No JVD, No Thyromegaly Lungs: Clear to Auscultation, Normal Air Movement Heart: Regular Rate, Normal S1, Normal S2, No Murmurs Abdomen: Normal Bowel Sounds, Soft, No Tenderness, No Hepatosplenomegaly, No Masses Extremities: No Clubbing, No Cyanosis, No Edema, Normal Pulses, No Tenderness/ Swelling Skin: No Rashes, No Breakdown, No Significant Lesion Neuro: Normal Gait, Normal Speech, Strength at 5/5 X4 Ext, Normal Tone, Sensation Intact Psych/Mental Status: Mental Status NL, Mood NL Results Lab Laboratory Tests 04/28/16 06:04 A/P-Cardiology Admission Diagnosis Paroxysmal atrial fibrillation Coronary artery disease Hypertension Pneumonia Assessment/Plan Status post respiratory failure - likely combination of COPD, aspiration pneumonia, acute diastolic heart failure, patient is feeling better. Continue on current treatment, continue with physical therapy. Anemia, Status post multiple transfusions, endoscopy was done by Dr. Stephens, reported no active bleeding, ASA restarted, hgb improving, continue to monitor closely. Paroxysmal atrial fibrillation, currently in sinus rhythm. On metoprolol, cannot tolerate oral anticoagulation due to the severe anemia and history of recent blood transfusion. Acute diastolic congestive heart failure: normal EF and elevated BNP, responded to diuretics well, maintained on Toprol, enalapril and spironolactone and tolerating it well. Non-ST elevation GA: Plavix currently on hold due to anemia, started on aspirin , continue to monitor H&H Possible left atrial thrombus, full anticoagulation with Lovenox is recommended , currently on hold secondary to anemia. DIAN may be recommended when more stable pulmonary mo. Patient asking to have this done by his primary diesel engine assembler, Dr. Duran, as an outpatient Chronic hypomagnesemia, has been on magnesium as an outpatient, continue to monitor. Urinary retention, hematuria, cystoscopy done by DAWN Churchill Apr 28, 2016 13:12
--- NOTE | 2016-04-28 14:57 | Cardiology Progress Note ---
Subjective Subjective/Events-last exam patient is sitting up in bed, feeling better, denied any chest pain or shortness of breath. Review of Systems General: No Chills, No Night Sweats, No Fatigue, No Malaise, No Appetite, No Other HEENT: No Head Aches, No Visual Changes, No Eye Pain, No Ear Pain, No Dysphasia , No Sinus Congestion, No Post Nasal Drip, No Sore Throat, No Other Pulmonary: DyspneaNo Cough, No Pleuritic Chest Pain, No Other Cardiovascular: No: Chest Pain, Edema, Lt Headedness, Orthopnea, Other, Palpitations, Paroxysmal Noc. Dyspnea Objective-Cardiology Exam Last Set of Vital Signs Vital Signs 04/28/16 10:40 Pulse Ox 94 O2 Flow Rate 3.00 Capillary Refill : I&O Intake and Output 04/27/16 23:59 Intake Total 2320 ml Output Total 4550 ml Balance -2230 ml Intake Oral 2320 ml Output Urine Total 4550 ml General: Alert, Oriented X3, Cooperative HEENT: Atraumatic, PERRLA Neck: Supple, No JVD, No Thyromegaly Lungs: Clear to Auscultation, Normal Air Movement Heart: Regular Rate, Normal S1, Normal S2, No Murmurs Abdomen: Normal Bowel Sounds, Soft, No Tenderness, No Hepatosplenomegaly, No Masses Extremities: No Clubbing, No Cyanosis, No Edema, Normal Pulses, No Tenderness/ Swelling Skin: No Rashes, No Breakdown, No Significant Lesion Neuro: Normal Gait, Normal Speech, Strength at 5/5 X4 Ext, Normal Tone, Sensation Intact Psych/Mental Status: Mental Status NL, Mood NL Results Lab Laboratory Tests 04/28/16 06:04 A/P-Cardiology Admission Diagnosis Paroxysmal atrial fibrillation Coronary artery disease Hypertension Pneumonia Assessment/Plan Status post respiratory failure - likely combination of COPD, aspiration pneumonia, acute diastolic heart failure, patient is feeling better. Continue on current treatment, continue with physical therapy. Anemia, Status post multiple transfusions, endoscopy was done by Dr. Stephens, reported no active bleeding, ASA restarted, hgb improving, continue to monitor closely. Paroxysmal atrial fibrillation, currently in sinus rhythm. On metoprolol, cannot tolerate oral anticoagulation due to the severe anemia and history of recent blood transfusion. Acute diastolic congestive heart failure: normal EF and elevated BNP, responded to diuretics well, maintained on Toprol, enalapril and spironolactone and tolerating it well. Non-ST elevation [place]: Plavix currently on hold due to anemia, started on aspirin , continue to monitor H&H, patient will need to have a cardiac catheterization done once clinically more stable, he requested to have it done with his primary distance learning program coordinator. Possible left atrial thrombus, full anticoagulation with Lovenox is recommended , currently on hold secondary to anemia. DIAN may be recommended when more stable pulmonary mo. Patient asking to have this done by his primary distance learning program coordinator, Dr. Duran, as an outpatient Chronic hypomagnesemia, has been on magnesium as an outpatient, continue to monitor. Urinary retention, hematuria, cystoscopy done by PAYTON Daily MD Apr 28, 2016 14:57
[2016-04-28] MEDS: ALFUZOSIN HCL 10 MG TAB (UROXATRAL) PO SCH (17:50)
[2016-04-28 20:00] VITALS: BP 111/59
[2016-04-28] MEDS: ATORVASTATIN 20 MG (LIPITOR) TABLET PO SCH (20:08)
[2016-04-29] MEDS: RT-ALBUTEROL/IPRATROPIUM 3 ML (DUONEB) VIAL INH SCH ×4 (02:41→14:45)
[2016-04-29] MEDS: MULTIVIT W/MINERALS TAB (THERAGRAN M) PO SCH (06:06)
[2016-04-29] MEDS: LEVOTHYROXINE 50 MCG (LEVOTHROID) TAB PO SCH (06:06)
[2016-04-29] MEDS: BETHANECHOL 25 MG (URECHOLINE) TAB PO SCH ×2 (06:06→11:17)
[2016-04-29] MEDS: PANTOPRAZOLE 40 MG (PROTONIX) TAB PO SCH (06:06)
[2016-04-29] MEDS: NYSTATIN ORAL SUSP 5 ML UDC PO SCH ×2 (06:06→11:20)
[2016-04-29] MEDS: THIAMINE 100 MG (VITAMIN B-1) TAB PO SCH (06:06)
[2016-04-29 06:10] LABS: BASOPHILS # (AUTO) 0.1 10^3/uL (0.0-0.1); BASOPHILS % (AUTO) 1 % (0-10); EOSINOPHILS # (AUTO) 0.8 10^3/uL (0.0-0.3); EOSINOPHILS % (AUTO) 8 % (0-10); LYMPHOCYTES # (AUTO) 1.4 X 10^3 (1.0-4.0); LYMPHOCYTES % (AUTO) 15 % (12-44); MEAN CORPUSCULAR HEMOGLOBIN 30 PG (25-34); MEAN CORPUSCULAR HGB CONC 31 G/DL (32-36); MEAN CORPUSCULAR VOLUME 97 FL (80-99); MEAN PLATELET VOLUME 9.8 FL (7.4-10.4); MONOCYTES # (AUTO) 0.9 X 10^3 (0.0-1.0); MONOCYTES % (AUTO) 10 % (0-12); NEUTROPHILS # (AUTO) 6.1 X 10^3 (1.8-7.8); NEUTROPHILS % (AUTO) 66 % (42-75); PLATELET COUNT 663 10^3/uL (130-400); RED BLOOD COUNT 2.77 10^6/uL (4.35-5.85); RED CELL DISTRIBUTION WIDTH 14.7 % (10.0-14.5); WHITE BLOOD COUNT 9.2 10^3/uL (4.3-11.0)
[2016-04-29] MEDS: SUCRALFATE 1 GM (CARAFATE) TAB PO SCH ×2 (06:10→11:27)
[2016-04-29] MEDS: RT-BUDESONIDE NEBS 0.5 MG/2ML (PULMICORT) AMP INH SCH (06:14)
[2016-04-29 08:00] VITALS: BP 109/59
--- NOTE | 2016-04-29 08:14 | Cardiology Progress Note ---
Subjective Subjective/Events-last exam patient is laying down in bed, feeling better, denied any chest pain or shortness of breath Review of Systems General: No Chills, No Night Sweats, No Fatigue, No Malaise, No Appetite, No Other HEENT: No Head Aches, No Visual Changes, No Eye Pain, No Ear Pain, No Dysphasia , No Sinus Congestion, No Post Nasal Drip, No Sore Throat, No Other Pulmonary: No Dyspnea, No Cough, No Pleuritic Chest Pain, No Other Cardiovascular: No: Chest Pain, Edema, Lt Headedness, Orthopnea, Other, Palpitations, Paroxysmal Noc. Dyspnea Objective-Cardiology Exam Last Set of Vital Signs Vital Signs 04/28/16 04/29/16 20:00 06:17 Temp 98.1 Pulse 91 Resp 20 B/P 111/59 Pulse Ox 98 O2 Delivery Nasal Cannula O2 Flow Rate 3.00 Capillary Refill : I&O Intake and Output 04/29/16 00:00 Intake Total 2690 ml Output Total 3350 ml Balance -660 ml Intake Oral 2690 ml Output Urine Total 3350 ml # Voids 2 # Urine Diapers 1 # Bowel Movements 1 General: Alert, Oriented X3, Cooperative HEENT: Atraumatic, PERRLA Neck: Supple, No JVD, No Thyromegaly Lungs: Clear to Auscultation, Normal Air Movement Heart: Regular Rate, Normal S1, Normal S2, No Murmurs Abdomen: Normal Bowel Sounds, Soft, No Tenderness, No Hepatosplenomegaly, No Masses Extremities: No Clubbing, No Cyanosis, No Edema, Normal Pulses, No Tenderness/ Swelling Skin: No Rashes, No Breakdown, No Significant Lesion Neuro: Normal Gait, Normal Speech, Strength at 5/5 X4 Ext, Normal Tone, Sensation Intact Psych/Mental Status: Mental Status NL, Mood NL Results Lab Laboratory Tests 04/29/16 05:36 A/P-Cardiology Admission Diagnosis Paroxysmal atrial fibrillation Coronary artery disease Hypertension Pneumonia Assessment/Plan Status post respiratory failure - likely combination of COPD, aspiration pneumonia, acute diastolic heart failure, patient is significantly better, reporting improvement. Managed by primary care physician. Anemia, Status post multiple transfusions, endoscopy was done by Dr. Stephens, reported no active bleeding, ASA restarted, hgb improving, continue to monitor closely. Paroxysmal atrial fibrillation, currently in sinus rhythm. On metoprolol, cannot tolerate oral anticoagulation due to the severe anemia and history of recent blood transfusion. Acute diastolic congestive heart failure: normal EF and elevated BNP, responded to diuretics well, maintained on Toprol, enalapril and spironolactone and tolerating it well. Non-ST elevation GA: Plavix currently on hold due to anemia, started on aspirin , continue to monitor H&H, patient will need to have a cardiac catheterization done once clinically more stable, he requested to have it done with his primary social economist. Possible left atrial thrombus, full anticoagulation with Lovenox is recommended , currently on hold secondary to anemia. DIAN may be recommended when more stable pulmonary mo. Patient asking to have this done by his primary social economist, Dr. Duran, as an outpatient Chronic hypomagnesemia, has been on magnesium as an outpatient, continue to monitor. Urinary retention, hematuria, cystoscopy done by PAYTON Daily MD Apr 29, 2016 08:13
[2016-04-29] MEDS: SENNA W/DOCUSATE (SENOKOT S) TABLET PO SCH (09:00)
[2016-04-29] MEDS: NICOTINE 21 MG (NICODERM) PATCH TD SCH (09:00)
[2016-04-29] MEDS: FINASTERIDE (PROSCAR) 5 MG TAB PO SCH (09:54)
[2016-04-29] MEDS: ENALAPRIL 2.5 MG (VASOTEC) TAB PO SCH (09:54)
[2016-04-29] MEDS: FUROSEMIDE 40 MG (LASIX) TAB PO SCH (09:54)
[2016-04-29] MEDS: meTOproloL SUCCINATE 50 MG (TOPROL XL) TAB PO SCH (09:54)
[2016-04-29] MEDS: SPIRONOLACTONE 25 MG (ALDACTONE) TAB PO SCH (09:55)
[2016-04-29] MEDS: KCL 10 MEQ TAB (MICRO K) PO SCH (09:55)
[2016-04-29] MEDS: ASPIRIN E.C. 81 MG (ECOTRIN) TAB PO SCH (09:55)
[2016-04-29] MEDS: PATCH REMOVAL TP SCH (09:56)
[2016-04-29] MEDS: ALPRAZolam 0.25 MG (XANAX) TAB PO PRN (10:04)
[2016-04-29] MEDS: MAGNESIUM 1 GM/100 ML IVPB 100 ML IV SCH ×2 (11:17→12:57)
--- NOTE | 2016-04-29 11:28 | Therapy Team Discharge Summary ---
Therapy Discharge Summary Discharge Recommendations Date of Discharge Therapy D/C Recommendations: Home w/ Family Support Physical Therapy Patient has attained all functional goals and will dismiss to home on this date. Patient is at an independent to modified independent LOF with all gross motor skills and is dismissing to home with spouse. Patient ambulates with single point cane and O2 PRN. PT Rn Post [place] Goals Long-Term Goals PT Rn Post [place]um Goals Time Frame: Apr 30, 2016 Transfers (B,C,W/C) (FIM): 6 (met 04/27/16) Sit to Lying (QC): 6 (met 04/27/16) Lying-Sitting on Side/Bed(QC): 6 (met 04/27/16) Sit to Stand (QC): 6 (met 04/27/16) Rollin (met 04/27/16) Does the Patient Walk: Yes Gait (FIM): 6 (met 04/27/16) Distance: 1000' Walk 50ft with 2 Turns (QC): 6 (met 04/27/16) Walk 150 ft (QC): 6 (met 04/27/16) Gait Level of Assist: 6 (met 04/27/16) Gait Assistive Device: Cane Single Point OT Long-Term Goals Long-Term Goals 1=Demonstrate adherence to instructed precautions during ADL tasks. 2=Patient will verbalize/demonstrate understanding of assistive devices/ modifications for ADL. 3=Patient will improve strength/tolerance for activity to enable patient to perform ADL's. JESS LAZCANO PT Apr 29, 2016 11:27
[2016-04-29] MEDS ORDERED: OMEP40CA36 PO ×2 (11:46)
[2016-04-29] MEDS ORDERED: ATOR20TA66 PO ×2 (11:46)
[2016-04-29] MEDS ORDERED: SUCR1TAB PO ×2 (11:46)
[2016-04-29] MEDS ORDERED: ALFU10TA11 PO ×2 (11:46)
[2016-04-29] MEDS ORDERED: BETH25TA PO ×2 (11:46)
[2016-04-29] MEDS ORDERED: ENAL2.5T PO ×2 (11:46)
[2016-04-29] MEDS ORDERED: Finasteride PO ×2 (11:46)
--- NOTE | 2016-04-29 11:50 | Discharge Inst-Simple/Standard ---
Discharge Inst-Standard Discharge Medications New, Converted or Re-Newed RX: Transmitted to Pharmacy Patient Instructions/Follow Up Plan of Care/Instructions/FU: Fwup with me in 2 weeks Activity as Tolerated: Yes Discharge Diet: Cardiac Diet Other Inst to Patient Resume Monday and Magnesium infusions CBC on 05/02/[address] AIME Robison DO Apr 29, 2016 11:50 am
[2016-04-29 16:10] VITALS: BP 110/60
--- NOTE | 2016-04-29 16:31 | Wound Care Progress Note ---
Subjective Subjective Subjective/Events-last exam 61 year old male with pressure ulcer of sacral area present after cervical fusion. Has a history of neurologic deficits following previous lumber decompression, and is currently limited in his ability to reposition self in bed and unable to transfer without assistance. He stated that he can walk with a walker. No c/o voiced of pain related to wounded area. PMH: Neurogenic bladder with suprapubic catheter, COPD, chronic back pain, HTN. FH: Not pertinent. 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 Review of Systems General: No Chills HEENT: No Head Aches, Dysphasia Pulmonary: No Dyspnea Cardiovascular: No: Chest Pain Gastrointestinal: No: Abdominal Pain Genitourinary: Incontinence Retention Musculoskeletal: : back pain: neck pain: other (Diffuse weakness.) Neurological: : Weakness Psych -- No c/o; Endocrine -- No c/o Objective Exam Last Set of Vital Signs Vital Signs Date Time Temp Pulse Resp B/P Pulse Ox O2 Delivery O2 Flow Rate FiO2 04/29/16 14:47 96 3.00 04/29/16 08:00 97.0 88 20 109/59 Nasal Cannula Capillary Refill : I&O Intake and Output 04/29/16 00:00 Intake Total 2690 ml Output Total 3350 ml Balance -660 ml Intake Oral 2690 ml Output Urine Total 3350 ml # Voids 2 # Urine Diapers 1 # Bowel Movements 1 General: Alert, No Acute Distress HEENT: Atraumatic Neck: Other (Hard collar present, no abnormality noted.) Lungs: Normal Air Movement Heart: Regular Rate Abdomen: Soft, No Tenderness Extremities: No Clubbing, No Cyanosis Skin: Other (Sacral wound -- 1.1 x 1.7 x 0.3 cm, base 100% slough, mod. s.s. drainage, periwound OK.) Neuro: Normal Speech Psych/Mental Status: Mental Status NL, Mood NL Results Lab Laboratory Tests 04/29/16 05:36: Basophils # (Auto) 0.1, Basophils (%) (Auto) 1, Eosinophils # (Auto) 0.8H, Eosinophils (%) (Auto) 8, Hematocrit 27L, Hemoglobin 8.4L, Lymphocytes # (Auto) 1.4, Lymphocytes (%) (Auto) 15, Magnesium Level 1.5L, Mean Corpuscular Hemoglobin 30, Mean Corpuscular Hemoglobin Concent 31L, Mean Corpuscular Volume 97, Mean Platelet Volume 9.8, Monocytes # (Auto) 0.9, Monocytes (%) (Auto) 10, Neutrophils # (Auto) 6.1, Neutrophils (%) (Auto) 66, Platelet Count 663H, Red Blood Count 2.77L, Red Cell Distribution Width 14.7H, White Blood Count 9.2 Assessment/Plan Assessment/Plan Assessment/Plan 1. Pressure ulcer, sacral, unstageable. 2. Cachexia, due to malnutrition, related to dysphagia. 3. Muscle atrophy, weakness with limited mobility. Plan: Frequent repositioning, avoiding positioning patient on back. Bordered foam dressing, QOD. [id number] mattress. LORELEI SNYDER MD Apr 29, 2016 16:30
--- NOTE | 2016-05-04 10:39 | Discharge Summary ---
Diagnosis/Chief Complaint Date of Admission Apr 22, 2016 at 12:29 Date of Discharge Apr 29, 2016 at 16:10 Discharge Date: Apr 29, 2016 Admission Diagnosis Admission Diagnosis 1. Recent Small Bowel Obstruction with exploratory lap with bowel resection and re-anastamosis 2. Post-op pneumonia with Respiratory Failure requiring ventilator--now on oxygen and BIPAP at night 3. Paroxysmal Atrial Fibrillation--back in NSR 4. Non STEMI--on medical management 5. Post-op Urinary Retention with BPH 6. Post-op Anemia 7. Weakness 8. GERD 9. COPD 10. Anxiety 11. Hypomagnesemia 12. Bilateral Inguinal Hernias Discharge Diagnosis 1. Recent Small Bowel Obstruction with exploratory lap with bowel resection and re-anastamosis 2. Post-op pneumonia with Respiratory Failure requiring ventilator--now on oxygen and BIPAP at night 3. Paroxysmal Atrial Fibrillation--back in NSR 4. Non STEMI--on medical management 5. Post-op Urinary Retention with BPH 6. Post-op Anemia 7. Weakness 8. GERD 9. COPD 10. Anxiety 11. Hypomagnesemia 12. Bilateral Inguinal Hernias Discharge Summary Hospital Course Hospital Course This is a 61 year old male who was originally admitted to acute care with a small bowel obstruction requiring exploratory lap with bowel resection and re- anastamosis. He has posto-op complications of pneumonia with respiratory failure requiring ventilatory support then was weaned to BIPAP. He also had an episode of paroxysmal atrial fibrillation but converted back to a normal sinus rhythm. He also had a non STEMI which was managed medically. He also had post- op urinary retention requiring prolonged urinary catheter. He also had post-op anemia. Due to weakness he was started on PT and OT and transferred to SWING bed. He continued with PT for strengthening and on oxygen via NC during the day and BIPAP at night. He did require blood transfusions due to a drop in hemoglobin so his blood thinners were held and he underwent and EGD due to a history of an ulcer. The EGD showed gastritis and reflux but no active bleeding. Once his hemoglobin was stable he was restarted on low dose aspirin and his hemoglobin remained stable after the addition of this. He was informed that due to his non STEMI he really needed further anticoagulation with plavix as well as lovenox due to possible left atrial thrombus but due to his dropping hemoglobin this was not possible and the patient refused to restart the blood thinners as well due to the dropping hemoglobin and blood transfusion required. He was also told her would likely need an updated cardiac catherization and DIAN but wanted to see his manager surgical in [place] to followup on this. His lung status remained stable and his strength improved during his SWING bed stay. He did require a urinary catheter with urology consult and adjustment of BPH medications during his hospital stay, but this was removed the day of discharge. He was tolerating a regular diet with normal bowel movements. It was decided he could be discharged home and do further followup on the above conditions as an outpatient. Procedures None. Discharge Physical Examination Allergies: Coded Allergies: morphine (Verified Adverse Reaction, Intermediate, CONFUSION, 12/04/14) Vitals & I&Os Vital Signs Date Time Temp Pulse Resp B/P Pulse Ox O2 Delivery O2 Flow Rate FiO2 04/29/16 16:10 88 20 110/60 96 3.00 04/29/16 08:00 97.0 Nasal Cannula General Appearance: Alert, Oriented X3, Cooperative, No Acute Distress Respiratory: Clear to Auscultation Cardiovascular: Regular Rate Abdominal: Normal Bowel Sounds, Soft, No Tenderness Extremities: No Clubbing, No Cyanosis, No Edema Neuro: Other (using walker to ambulate) Psych/Mental Status: Mental Status NL, Mood NL Discharge Home Medications Reviewed and agree with Discharge Medication list on patient's Discharge Instruction sheet Instructions to Patient/Family Please see electonic discharge instructions given to patient. AIME CANO DO May 04, 2016 10:39
== END 2016-04-29 16:10 | disposition home or self-care (01) | DRG 280 ==
LOC: 4TH 12:29
PROVIDERS: ADMIT Family Medicine; ATTEND Family Medicine
PROC: 0DB68ZX Excision of Stomach, Via Natural or Artificial Opening Endoscopic, Diagnostic (ICD-10-PCS; principal; 2016-04-22)
DX: I97.191 Other postprocedural cardiac functional disturbances following other surgery (principal); I21.4 Non-ST elevation (NSTEMI) myocardial infarction; I25.10 Atherosclerotic heart disease of native coronary artery without angina pectoris; I50.31 Acute diastolic (congestive) heart failure; J44.0 Chronic obstructive pulmonary disease with (acute) lower respiratory infection; J69.0 Pneumonitis due to inhalation of food and vomit; I51.3 Intracardiac thrombosis, not elsewhere classified; D63.8 Anemia in other chronic diseases classified elsewhere; K40.20 Bilateral inguinal hernia, without obstruction or gangrene, not specified as recurrent; E83.42 Hypomagnesemia; I48.91 Unspecified atrial fibrillation; R53.1 Weakness; R33.9 Retention of urine, unspecified; R31.0 Gross hematuria; F41.9 Anxiety disorder, unspecified; E03.9 Hypothyroidism, unspecified; K21.0 Gastro-esophageal reflux disease with esophagitis; K44.9 Diaphragmatic hernia without obstruction or gangrene; K29.70 Gastritis, unspecified, without bleeding; S50.311D Abrasion of right elbow, subsequent encounter; Z87.891 Personal history of nicotine dependence; Z95.1 Presence of aortocoronary bypass graft
CPT/HCPCS: 36415; 80048; 82941; 82962; 83735; 85018; 85025; 85027; 88305; 94640; 94660; 94760

== ENCOUNTER → 2016-05-03 | Outpatient (CLI) | payer MEDICARE, OTHER ==
[~2016-05-03] MED LIST changes: +ALFU10TA11 PO; +ATOR20TA66 PO; +BETH25TA PO; -CHLORASEPTIC SPRAY 177 ML LIQUID MC PRN; +ENAL2.5T PO; -FUROSEMIDE 40 MG (LASIX) TAB PO SCH; +Finasteride PO; -KCL 10 MEQ TAB (MICRO K) PO SCH; +OMEP40CA36 PO; -ONDANSETRON 4 MG/2 ML (SDV) Z0FRAN IVP PRN; -RT-ALBUTEROL/IPRATROPIUM 3 ML (DUONEB) VIAL INH PRN; +SUCR1TAB PO; -ZINC OXIDE 20% OINT 30 GM TUBE TOP SCH
--- OUTSIDE RECORDS SUMMARY | 2016-05-03 12:14 | XMS REPORT | Continuity of Care Document ---
Author Author [facility] Organization [facility] Address Unknown Phone Unavailable Care Team Providers Care Broadcasting Equipment Mechanic Name Role Phone Mary Jane Sanchez PCP [phone] Source Comments Some departments are not documenting in the electronic medical record. If you do not see the information that you expected, contact Release of Information in the Health Information Management department at [phone] for further assistance in locating additional records.[facility] Active Allergies and Adverse Reactions Not [...]
--- NOTE | 2016-05-03 13:18 | Diagnostic Imaging Report ---
INDICATION: Elevated white blood cell count. PA and lateral chest obtained at 12:44 p.m. and compared to 04/21/16. FINDINGS: Patient is status post sternotomy. The heart is borderline in size. There are chronic appearing increased interstitial markings. There is no overt consolidation. There is a small amount of pleural fluid on the left side which was similar on the previous study. IMPRESSION: Chronic appearing increased interstitial markings. Small left pleural effusion. There is no pneumothorax. Dictated by: Dictated on workstation # [id number]
== END ==
LOC: RAD 12:10
PROVIDERS: ATTEND Family Medicine
DX: D72.829 Elevated white blood cell count, unspecified (principal)
CPT/HCPCS: 71020

== ENCOUNTER 2016-05-16 08:22 | Outpatient (RCR) | payer MEDICARE, OTHER ==
[2016-02-18] MEDS: ACETAMINOPHEN 325 MG TABLET/CAPLET (TYLENOL) PO SCH (08:45)
[2016-02-18] MEDS: diphenhydrAMINE 50 MG/ML INJ (BENADRYL) IV SCH (08:45)
[2016-02-18 08:47] VITALS: BP 143/80
[2016-02-18] MEDS: MAGNESIUM 1 GM/100 ML IVPB 200 ML IV SCH (08:47)
--- OUTSIDE RECORDS SUMMARY | 2016-02-18 09:03 | XMS REPORT | Continuity of Care Document ---
Author Author [facility] Organization [facility] Address Unknown Phone Unavailable Care Team Providers Care Stripe Matcher Name Role Phone Mary Jane Sanchez PCP [phone] Source Comments Some departments are not documenting in the electronic medical record. If you do not see the information that you expected, contact Release of Information in the Health Information Management department at [phone] for further assistance in locating additional records.[facility] Active Allergies and Adverse Reactions Not on File Current Medications Not on file Active Problems Not on file Social History Tobacco Use Types Packs/Day Years Used Date Never Assessed Plan of Care Health Maintenance Due Date Last Done Comments Physical (Comprehensive) 1964 Exam Pertussis Vaccine 1968 Tetanus Vaccine 1974 Colorectal Cancer 04/27/2007 Screening Influenza Vaccine 10/22/2015 Results from Last 3 Months Not on file
[2016-02-18 10:50] VITALS: BP 143/80
[2016-02-23] MEDS: diphenhydrAMINE 50 MG/ML INJ (BENADRYL) IV SCH (08:30)
[2016-02-23] MEDS: ACETAMINOPHEN 325 MG TABLET/CAPLET (TYLENOL) PO SCH (08:30)
[2016-02-23 08:32] VITALS: BP 146/83
[2016-02-23] MEDS: MAGNESIUM 1 GM/100 ML IVPB 200 ML IV SCH (08:32)
[2016-02-25] MEDS: CATHETER FLUSH 10 ML SYR IV PRN ×2 (08:20→10:20)
[2016-02-25] MEDS: diphenhydrAMINE 50 MG/ML INJ (BENADRYL) IV SCH (08:21)
[2016-02-25] MEDS: MAGNESIUM 1 GM/100 ML IVPB 200 ML IV SCH (08:21)
[2016-02-25 08:43] VITALS: BP 134/98
[2016-03-01] MEDS: MAGNESIUM 1 GM/100 ML IVPB 200 ML IV SCH (08:33)
[2016-03-01] MEDS: CATHETER FLUSH 10 ML SYR IV PRN (08:33)
[2016-03-01] MEDS: diphenhydrAMINE 50 MG/ML INJ (BENADRYL) IV SCH (08:33)
[2016-03-01 08:54] VITALS: BP 151/84
[2016-03-03] MEDS: diphenhydrAMINE 50 MG/ML INJ (BENADRYL) IV SCH (09:12)
[2016-03-03] MEDS: MAGNESIUM 1 GM/100 ML IVPB 200 ML IV SCH (09:16)
[2016-03-03 11:20] VITALS: BP 142/93
[2016-03-08] MEDS: diphenhydrAMINE 50 MG/ML INJ (BENADRYL) IV SCH (08:28)
[2016-03-08] MEDS: CATHETER FLUSH 10 ML SYR IV PRN ×2 (08:28→10:35)
[2016-03-08] MEDS: MAGNESIUM 1 GM/100 ML IVPB 200 ML IV SCH (08:29)
[2016-03-08 09:26] VITALS: BP 142/95
[2016-03-10] MEDS: MAGNESIUM 1 GM/100 ML IVPB 200 ML IV SCH (08:29)
[2016-03-10] MEDS: diphenhydrAMINE 50 MG/ML INJ (BENADRYL) IV SCH (08:29)
[2016-03-10 08:30] VITALS: BP 138/78
[2016-03-10] MEDS: CATHETER FLUSH 10 ML SYR IV PRN ×2 (08:30→10:30)
[2016-03-15] MEDS: MAGNESIUM 1 GM/100 ML IVPB 200 ML IV SCH (08:35)
[2016-03-15] MEDS: diphenhydrAMINE 50 MG/ML INJ (BENADRYL) IV SCH (08:35)
[2016-03-15 10:50] VITALS: BP 139/91
[2016-03-17] MEDS: diphenhydrAMINE 50 MG/ML INJ (BENADRYL) IV SCH (08:17)
[2016-03-17] MEDS: MAGNESIUM 1 GM/100 ML IVPB 200 ML IV SCH (08:17)
[2016-03-17] MEDS: CATHETER FLUSH 10 ML SYR IV PRN (08:17)
[2016-03-17 10:18] VITALS: BP 138/78
[2016-03-21] MEDS: MAGNESIUM 1 GM/100 ML IVPB 200 ML IV SCH (08:35)
[2016-03-21] MEDS: diphenhydrAMINE 50 MG/ML INJ (BENADRYL) IV SCH (08:35)
[2016-03-21] MEDS: CATHETER FLUSH 10 ML SYR IV PRN ×2 (08:38→10:45)
[2016-03-21 08:42] VITALS: BP 137/85
[2016-03-24] MEDS: CATHETER FLUSH 10 ML SYR IV PRN ×2 (08:38→10:35)
[2016-03-24] MEDS: MAGNESIUM 1 GM/100 ML IVPB 200 ML IV SCH ×2 (08:40→09:32)
[2016-03-24] MEDS: diphenhydrAMINE 50 MG/ML INJ (BENADRYL) IV SCH (08:40)
[2016-03-24 08:56] LABS: BASOPHILS # (AUTO) 0.1 10^3/uL (0.0-0.1); BASOPHILS % (AUTO) 1 % (0-10); EOSINOPHILS # (AUTO) 0.3 10^3/uL (0.0-0.3); EOSINOPHILS % (AUTO) 4 % (0-10); LYMPHOCYTES # (AUTO) 1.4 X 10^3 (1.0-4.0); LYMPHOCYTES % (AUTO) 18 % (12-44); MEAN CORPUSCULAR HEMOGLOBIN 33 PG (25-34); MEAN CORPUSCULAR HGB CONC 34 G/DL (32-36); MEAN CORPUSCULAR VOLUME 99 FL (80-99); MONOCYTES # (AUTO) 0.7 X 10^3 (0.0-1.0); MONOCYTES % (AUTO) 9 % (0-12); NEUTROPHILS # (AUTO) 5.3 X 10^3 (1.8-7.8); NEUTROPHILS % (AUTO) 69 % (42-75); PLATELET COUNT 363 10^3/uL (130-400); RED BLOOD COUNT 3.69 10^6/uL (4.35-5.85); RED CELL DISTRIBUTION WIDTH 12.4 % (10.0-14.5); WHITE BLOOD COUNT 7.7 10^3/uL (4.3-11.0)
[2016-03-24 09:15] LABS: ALANINE AMINOTRANSFERASE 16 U/L (0-55); ALBUMIN 3.9 G/DL (3.2-4.5); ANION GAP 9 MMOL/L (5-14); ASPARTATE AMINO TRANSFERASE 21 U/L (5-34); BILIRUBIN,TOTAL 0.3 MG/DL (0.1-1.0); BLOOD UREA NITROGEN 25 MG/DL (7-18); BUN/CREATININE RATIO 23; CALCIUM 9.2 MG/DL (8.5-10.1); CARBON DIOXIDE 24 MMOL/L (21-32); CHLORIDE 99 MMOL/L (98-107); CHOLESTEROL 148 MG/DL (< 200); CREATININE SERUM 1.08 MG/DL (0.60-1.30); DIRECT LDL 49 MG/DL (1-129); GFR ESTIMATED > 60; GLUCOSE 96 MG/DL (70-105); MAGNESIUM 1.8 MG/DL (1.8-2.4); POTASSIUM 4.9 MMOL/L (3.6-5.0); SODIUM 132 MMOL/L (135-145); TOTAL PROTEIN 6.9 G/DL (6.4-8.2); TRIGLYCERIDES 54 MG/DL (<150); VLDL CHOLESTEROL 11 MG/DL (5-40)
[2016-03-24 09:37] LABS: THYROID STIMULATING HORMONE 1.88 UIU/ML (0.35-4.94)
[2016-03-24 10:45] VITALS: BP 144/89
[2016-05-02 09:54] LABS: BASOPHILS % (AUTO) 0 % (0-10); EOSINOPHILS # (AUTO) 0.4 10^3/uL (0.0-0.3); EOSINOPHILS % (AUTO) 2 % (0-10); LYMPHOCYTES # (AUTO) 1.2 X 10^3 (1.0-4.0); LYMPHOCYTES % (AUTO) 6 % (12-44); MEAN CORPUSCULAR HEMOGLOBIN 30 PG (25-34); MEAN CORPUSCULAR HGB CONC 31 G/DL (32-36); MEAN CORPUSCULAR VOLUME 96 FL (80-99); MEAN PLATELET VOLUME 9.9 FL (7.4-10.4); MONOCYTES % (AUTO) 9 % (0-12); NEUTROPHILS # (AUTO) 18.5 X 10^3 (1.8-7.8); NEUTROPHILS % (AUTO) 83 % (42-75); RED BLOOD COUNT 2.96 10^6/uL (4.35-5.85); RED CELL DISTRIBUTION WIDTH 14.9 % (10.0-14.5); WHITE BLOOD COUNT 22.2 10^3/uL (4.3-11.0)
[2016-05-02] MEDS: diphenhydrAMINE 50 MG/ML INJ (BENADRYL) IV SCH (10:05)
[2016-05-02] MEDS: MAGNESIUM 1 GM/100 ML IVPB 200 ML IV SCH (10:10)
[2016-05-02 10:19] LABS: BAND NEUTROPHILS 1 %; BASOPHILS % (MANUAL) 0 %; EOSINOPHILS % (MANUAL) 0 %; LYMPHOCYTES % (MANUAL) 6 %; NEUTROPHILS % (MANUAL) 85 %; PLATELET COUNT 367 10^3/uL (130-400)
[2016-05-02 10:20] LABS: ANISOCYTOSIS SLIGHT
[2016-05-02] MEDS: CATHETER FLUSH 10 ML SYR IV PRN (12:05)
[2016-05-02 12:20] VITALS: BP 113/62
[2016-05-05] MEDS: diphenhydrAMINE 50 MG/ML INJ (BENADRYL) IV SCH (08:33)
[2016-05-05] MEDS: MAGNESIUM 1 GM/100 ML IVPB 200 ML IV SCH (08:34)
[2016-05-05 10:45] VITALS: BP 134/80
[2016-05-09] MEDS: CATHETER FLUSH 10 ML SYR IV PRN ×2 (09:20→12:10)
[2016-05-09] MEDS: diphenhydrAMINE 50 MG/ML INJ (BENADRYL) IV SCH (09:22)
[2016-05-09] MEDS: MAGNESIUM 1 GM/100 ML IVPB 200 ML IV SCH (09:22)
[2016-05-09 09:31] VITALS: BP 128/78
--- NOTE | 2016-05-09 09:32 | Diagnostic Imaging Report ---
INDICATION: PICC line placement. Portable chest 9:10 AM FINDINGS: Right upper extremity PICC line tip folds back on itself in the SVC. The leading edge of the catheter is in the SVC but the tip projecting back into the left innominate vein. There are postop changes from a median sternotomy. There is some atelectasis at the left lung base. IMPRESSION: Left basilar atelectasis. PICC line appears to be folded back on itself in the SVC. Dictated by: Dictated on workstation # [id number]
--- NOTE | 2016-05-09 10:40 | Diagnostic Imaging Report ---
EXAMINATION: Portable upright radiograph of the chest. INDICATION: PICC line adjustment. FINDINGS: The PICC line terminates in the upper SVC; however, it forms a loop that projects into the right internal jugular vein. The heart size is minimally prominent. There is a tiny left pleural effusion and left basilar infiltrate or atelectasis. There is minimal right basilar atelectasis. Sternotomy wires and cervical spine fusion hardware are seen. IMPRESSION: 1. The PICC line forms a loop projecting into the right internal jugular vein. The tip projects at the upper SVC level. 2. Small left pleural effusion with minimal left basilar infiltrate or atelectasis. Dictated by: Dictated on workstation # [id number]
--- NOTE | 2016-05-09 10:45 | Diagnostic Imaging Report ---
EXAMINATION: Portable upright radiograph of the chest. INDICATION: PICC line placement. FINDINGS: The right PICC line now is in good position with the tip at the distal SVC level. There is mild bibasilar atelectasis. A small left pleural effusion is seen with minimal adjacent atelectasis and/or infiltrate. The heart size is normal. No pneumothorax. Sternotomy wires and cervical spine fusion hardware are seen. IMPRESSION: Bibasilar mild atelectasis and possible infiltrates with a small left pleural effusion. Dictated by: Dictated on workstation # [id number]
[2016-05-12] MEDS: diphenhydrAMINE 50 MG/ML INJ (BENADRYL) IV SCH (08:29)
[2016-05-12] MEDS: MAGNESIUM 1 GM/100 ML IVPB 200 ML IV SCH (08:30)
[2016-05-12] MEDS: CATHETER FLUSH 10 ML SYR IV PRN ×2 (08:31→10:30)
[2016-05-12 08:39] VITALS: BP_SYST 152; BP_DIAS 20; BP_DIAS 80
[~2016-05-16] VITALS: Ht 182.9 cm; Wt 80.7 kg
[~2016-05-16 08:22] MED LIST changes: +ACETAMINOPHEN 325 MG TABLET/CAPLET (TYLENOL) PO SCH; +CATHETER FLUSH 10 ML SYR IV PRN; +FLU TRIvalent (5 YOA+) 2016-17 (AFLURIA) 0.5 ML IM ONE; +MAGNESIUM 1 GM/100 ML IVPB 100 ML IV SCH; +MAGNESIUM 1 GM/D5W 100 ML IVPB IV SCH; +diphenhydrAMINE 50 MG/ML INJ (BENADRYL) IVP SCH
[2016-05-16 08:37] LABS: BASOPHILS % (AUTO) 0 % (0-10); EOSINOPHILS # (AUTO) 0.1 10^3/uL (0.0-0.3); EOSINOPHILS % (AUTO) 2 % (0-10); LYMPHOCYTES # (AUTO) 1.2 X 10^3 (1.0-4.0); LYMPHOCYTES % (AUTO) 13 % (12-44); MEAN CORPUSCULAR HEMOGLOBIN 30 PG (25-34); MEAN CORPUSCULAR HGB CONC 32 G/DL (32-36); MEAN CORPUSCULAR VOLUME 94 FL (80-99); MEAN PLATELET VOLUME 8.4 FL (7.4-10.4); MONOCYTES # (AUTO) 0.7 X 10^3 (0.0-1.0); MONOCYTES % (AUTO) 8 % (0-12); NEUTROPHILS % (AUTO) 78 % (42-75); PLATELET COUNT 462 10^3/uL (130-400); RED BLOOD COUNT 2.82 10^6/uL (4.35-5.85); RED CELL DISTRIBUTION WIDTH 15.8 % (10.0-14.5)
[2016-05-16] MEDS: MAGNESIUM 1 GM/100 ML IVPB 200 ML IV SCH (08:38)
[2016-05-16] MEDS: CATHETER FLUSH 10 ML SYR IV PRN ×2 (08:39→10:35)
[2016-05-16] MEDS: diphenhydrAMINE 50 MG/ML INJ (BENADRYL) IV SCH (08:39)
[2016-05-16 09:53] VITALS: BP 129/73
[2016-05-19] MEDS ORDERED: diphenhydrAMINE 50 MG/ML INJ (BENADRYL) ONE (08:17)
[2016-05-19] MEDS ORDERED: MAGNESIUM 1 GM/100 ML IVPB 200 ML IV ONE (08:18)
== END 2016-05-18 | disposition home or self-care (01) ==
LOC: SDC 08:22
PROVIDERS: ATTEND Family Medicine
DX: E61.2 Magnesium deficiency (principal)
CPT/HCPCS: 36415; 36569; 71010; 76937; 80053; 80061; 83735; 84436; 84443; 85007; 85025; 85027; 96365; 96366; 96367; 96374; 99211

== ENCOUNTER → 2016-07-14 | Outpatient (CLI) | payer MEDICARE, OTHER ==
[~2016-07-14] MED LIST changes: -ACETAMINOPHEN 325 MG TABLET/CAPLET (TYLENOL) PO SCH; -CATHETER FLUSH 10 ML SYR IV PRN; -FLU TRIvalent (5 YOA+) 2016-17 (AFLURIA) 0.5 ML IM ONE; -MAGNESIUM 1 GM/100 ML IVPB 100 ML IV SCH; -MAGNESIUM 1 GM/D5W 100 ML IVPB IV SCH; -diphenhydrAMINE 50 MG/ML INJ (BENADRYL) IVP SCH
--- NOTE | 2016-07-14 19:34 | Diagnostic Imaging Report ---
Right breast ultrasound. INDICATION: Right breast mass and tenderness. FINDINGS: The retroareolar region and four quadrants of the right breast and comparison retroareolar evaluation of the left breast were scanned demonstrating retroareolar hypoechoic mass with increased vascularity seen in the right breast measuring 2.8 x 0.8 x 2.6 cm. The left breast demonstrates smaller similar hypoechoic lesion in the retroareolar region. IMPRESSION: Retroareolar hypoechoic mass with increased vascularity seen in the right breast is favored to be related to gynecomastia. Gynecomastia is generally better evaluated with mammography which has higher specificity for this diagnosis compared to ultrasound. A mammogram was recommended; however, the patient did not want a mammogram performed at this time. Correlate clinically and with follow-up exam in three months to ensure stability. ACR BI-RADS Category 3: Probably benign findings. Dictated by: Dictated on workstation # [id number]
== END ==
LOC: RAD 08:30
PROVIDERS: ATTEND Family Medicine
DX: N64.4 Mastodynia (principal); N63 Unspecified lump in breast
CPT/HCPCS: 76641

== ENCOUNTER → 2016-08-04 | Outpatient (CLI) | payer MEDICARE, OTHER ==
[2016-08-04 08:59] LABS: BASOPHILS % (AUTO) 1 % (0-10); EOSINOPHILS # (AUTO) 0.2 10^3/uL (0.0-0.3); EOSINOPHILS % (AUTO) 3 % (0-10); LYMPHOCYTES # (AUTO) 1.1 X 10^3 (1.0-4.0); LYMPHOCYTES % (AUTO) 18 % (12-44); MEAN CORPUSCULAR HEMOGLOBIN 31 PG (25-34); MEAN CORPUSCULAR HGB CONC 33 G/DL (32-36); MEAN CORPUSCULAR VOLUME 94 FL (80-99); MEAN PLATELET VOLUME 9.1 FL (7.4-10.4); MONOCYTES # (AUTO) 0.6 X 10^3 (0.0-1.0); MONOCYTES % (AUTO) 10 % (0-12); NEUTROPHILS # (AUTO) 4.3 X 10^3 (1.8-7.8); NEUTROPHILS % (AUTO) 69 % (42-75); PLATELET COUNT 327 10^3/uL (130-400); RED BLOOD COUNT 3.85 10^6/uL (4.35-5.85); RED CELL DISTRIBUTION WIDTH 13.7 % (10.0-14.5); WHITE BLOOD COUNT 6.3 10^3/uL (4.3-11.0)
--- NOTE | 2016-08-04 11:48 | Diagnostic Imaging Report ---
PA and lateral views of the chest. INDICATION: Dyspnea. COMPARISON: 05/09/2016. The lungs are hyperinflated. There is a small/ moderate left pleural effusion with left basilar opacity similar to 05/03/2016, exam. This is probably related to chronic atelectasis. There is slight increase in the opacification of the left lung base which may relate to increased atelectasis or superimposed pneumonia. The right lung demonstrates no focal infiltrate. Small right pleural effusion is present. There is a right PICC line with the tip at the cavoatrial junction. The heart size is at the upper limits of normal. The mediastinum and bebe demonstrate no change. Sternotomy wires again seen. There is cervical spine fusion hardware also noted. IMPRESSION: Bilateral effusions larger on the left side with adjacent left basilar opacity favored to be atelectasis. The findings are similar to radiographs in April 2016 with minimal increase in left basilar opacity that could be increased atelectasis or potentially superimposed pneumonia. Correlate clinically. Dictated by: Dictated on workstation # [id number]
== END ==
LOC: RAD 08:41
PROVIDERS: ATTEND Family Medicine
DX: J90 Pleural effusion, not elsewhere classified (principal)
CPT/HCPCS: 36415; 71020; 85025

== ENCOUNTER → 2016-08-11 | Outpatient (CLI) | payer MEDICARE, OTHER | LOC: SDC 08:41 | PROVIDERS: ATTEND Family Medicine | DX: R06.02 Shortness of breath (principal); R05 Cough | CPT/HCPCS: 96365; 96366; 96374 ==

== ENCOUNTER 2016-08-15 08:22 | Outpatient (RCR) | payer MEDICARE, OTHER ==
[2016-05-19] MEDS: diphenhydrAMINE 50 MG/ML INJ (BENADRYL) IV SCH (08:25)
[2016-05-19 08:30] VITALS: BP 150/81
[2016-05-19] MEDS: DEXTROSE IV SCH (08:30)
[2016-05-19] MEDS: MAGNESIUM SULFATE IV SCH (08:30)
[2016-05-19] MEDS: ACETAMINOPHEN 325 MG TABLET/CAPLET (TYLENOL) PO SCH (09:40)
[2016-05-19 10:30] VITALS: BP 150/81
[2016-05-23 08:20] VITALS: BP 152/78
[2016-05-23] MEDS: ACETAMINOPHEN 325 MG TABLET/CAPLET (TYLENOL) PO SCH (08:43)
[2016-05-23] MEDS: diphenhydrAMINE 50 MG/ML INJ (BENADRYL) IV SCH (08:43)
[2016-05-23] MEDS: DEXTROSE IV SCH (08:44)
[2016-05-23] MEDS: MAGNESIUM SULFATE IV SCH (08:44)
[2016-05-26] MEDS: diphenhydrAMINE 50 MG/ML INJ (BENADRYL) IV SCH (08:23)
[2016-05-26] MEDS: MAGNESIUM SULFATE IV SCH (08:27)
[2016-05-26] MEDS: DEXTROSE IV SCH (08:27)
[2016-05-26 11:40] VITALS: BP 149/72
[2016-05-30] MEDS: ACETAMINOPHEN 325 MG TABLET/CAPLET (TYLENOL) PO SCH (08:29)
[2016-05-30 08:30] VITALS: BP 138/83
[2016-05-30] MEDS: diphenhydrAMINE 50 MG/ML INJ (BENADRYL) IV SCH (08:30)
[2016-05-30] MEDS: MAGNESIUM SULFATE IV SCH ×2 (08:30→09:23)
[2016-05-30] MEDS: DEXTROSE IV SCH ×2 (08:30→09:23)
[2016-05-30 10:30] VITALS: BP 138/83
[2016-06-02] MEDS: diphenhydrAMINE 50 MG/ML INJ (BENADRYL) IV SCH (09:25)
[2016-06-02] MEDS: DEXTROSE IV SCH (09:26)
[2016-06-02] MEDS: MAGNESIUM SULFATE IV SCH (09:26)
[2016-06-02 11:33] VITALS: BP 164/80
[2016-06-06 08:25] VITALS: BP 146/81
[2016-06-06] MEDS: ACETAMINOPHEN 325 MG TABLET/CAPLET (TYLENOL) PO SCH (08:40)
[2016-06-06] MEDS: diphenhydrAMINE 50 MG/ML INJ (BENADRYL) IV SCH (08:40)
[2016-06-06] MEDS: MAGNESIUM SULFATE IV SCH (08:40)
[2016-06-06] MEDS: DEXTROSE IV SCH (08:40)
[2016-06-09] MEDS: diphenhydrAMINE 50 MG/ML INJ (BENADRYL) IV SCH (08:25)
[2016-06-09] MEDS: MAGNESIUM SULFATE IV SCH (08:25)
[2016-06-09] MEDS: DEXTROSE IV SCH (08:25)
[2016-06-09 08:51] VITALS: BP 152/88
[2016-06-13] MEDS: diphenhydrAMINE 50 MG/ML INJ (BENADRYL) IV SCH (08:38)
[2016-06-13] MEDS: MAGNESIUM SULFATE IV SCH (08:39)
[2016-06-13] MEDS: DEXTROSE IV SCH (08:39)
[2016-06-13 10:30] VITALS: BP 156/88
[2016-06-16] MEDS: diphenhydrAMINE 50 MG/ML INJ (BENADRYL) IV SCH (08:24)
[2016-06-16] MEDS: DEXTROSE IV SCH (08:24)
[2016-06-16] MEDS: MAGNESIUM SULFATE IV SCH (08:24)
[2016-06-16 08:49] VITALS: BP 152/88
[2016-06-20] MEDS: diphenhydrAMINE 50 MG/ML INJ (BENADRYL) IV SCH (08:26)
[2016-06-20] MEDS: MAGNESIUM SULFATE IV SCH (08:27)
[2016-06-20] MEDS: DEXTROSE IV SCH (08:27)
[2016-06-20 08:43] VITALS: BP 146/94
[2016-06-20 10:25] VITALS: BP 146/94
[2016-06-24 08:15] VITALS: BP 131/83
[2016-06-24] MEDS: DEXTROSE IV SCH (08:22)
[2016-06-24] MEDS: diphenhydrAMINE 50 MG/ML INJ (BENADRYL) IV SCH (08:22)
[2016-06-24] MEDS: MAGNESIUM SULFATE IV SCH (08:22)
[2016-06-24] MEDS: ACETAMINOPHEN 325 MG TABLET/CAPLET (TYLENOL) PO SCH (08:29)
[2016-06-27] MEDS: MAGNESIUM SULFATE IV SCH (08:33)
[2016-06-27] MEDS: DEXTROSE IV SCH (08:33)
[2016-06-27] MEDS: diphenhydrAMINE 50 MG/ML INJ (BENADRYL) IV SCH (08:33)
[2016-06-27 08:50] VITALS: BP_SYST 131; BP_SYST 139; BP_DIAS 83; BP_DIAS 88
[2016-06-30 09:10] VITALS: BP 153/90
[2016-06-30] MEDS: DEXTROSE IV SCH (09:10)
[2016-06-30] MEDS: diphenhydrAMINE 50 MG/ML INJ (BENADRYL) IV SCH (09:10)
[2016-06-30] MEDS: MAGNESIUM SULFATE IV SCH (09:10)
[2016-07-04] MEDS: diphenhydrAMINE 50 MG/ML INJ (BENADRYL) IV SCH (08:40)
[2016-07-04] MEDS: DEXTROSE IV SCH (08:40)
[2016-07-04] MEDS: MAGNESIUM SULFATE IV SCH (08:40)
[2016-07-04] MEDS: ACETAMINOPHEN 325 MG TABLET/CAPLET (TYLENOL) PO SCH (08:40)
[2016-07-04 10:38] VITALS: BP 139/92
[2016-07-07] MEDS: diphenhydrAMINE 50 MG/ML INJ (BENADRYL) IV SCH (08:25)
[2016-07-07 08:26] VITALS: BP 149/85
[2016-07-07] MEDS: MAGNESIUM SULFATE IV SCH (08:26)
[2016-07-07] MEDS: DEXTROSE IV SCH (08:26)
[2016-07-07] MEDS: ACETAMINOPHEN 325 MG TABLET/CAPLET (TYLENOL) PO SCH (08:27)
[2016-07-11] MEDS: diphenhydrAMINE 50 MG/ML INJ (BENADRYL) IV SCH (08:26)
[2016-07-11] MEDS: MAGNESIUM SULFATE IV SCH (08:27)
[2016-07-11] MEDS: DEXTROSE IV SCH (08:27)
[2016-07-11 08:37] VITALS: BP 130/79
[2016-07-14] MEDS: diphenhydrAMINE 50 MG/ML INJ (BENADRYL) IV SCH (09:33)
[2016-07-14] MEDS: DEXTROSE IV SCH (09:36)
[2016-07-14] MEDS: MAGNESIUM SULFATE IV SCH (09:36)
[2016-07-14 11:35] VITALS: BP 125/78
[2016-07-19] MEDS: MAGNESIUM SULFATE IV SCH (08:23)
[2016-07-19] MEDS: DEXTROSE IV SCH (08:23)
[2016-07-19] MEDS: diphenhydrAMINE 50 MG/ML INJ (BENADRYL) IV SCH (08:23)
[2016-07-19 08:24] VITALS: BP 134/78
[2016-07-21] MEDS: diphenhydrAMINE 50 MG/ML INJ (BENADRYL) IV SCH (08:28)
[2016-07-21] MEDS: DEXTROSE IV SCH (08:29)
[2016-07-21] MEDS: MAGNESIUM SULFATE IV SCH (08:29)
[2016-07-21 10:24] VITALS: BP 154/82
[2016-07-25] MEDS: diphenhydrAMINE 50 MG/ML INJ (BENADRYL) IV SCH (08:41)
[2016-07-25] MEDS: DEXTROSE IV SCH (08:41)
[2016-07-25] MEDS: MAGNESIUM SULFATE IV SCH (08:41)
[2016-07-25] MEDS: CATHETER FLUSH 10 ML SYR IV PRN (10:41)
[2016-07-25 11:00] VITALS: BP 133/86
[2016-07-28] MEDS: diphenhydrAMINE 50 MG/ML INJ (BENADRYL) IV SCH (08:33)
[2016-07-28] MEDS: DEXTROSE IV SCH (08:33)
[2016-07-28] MEDS: MAGNESIUM SULFATE IV SCH (08:33)
[2016-07-28] MEDS: CATHETER FLUSH 10 ML SYR IV PRN ×2 (08:33→10:30)
[2016-07-28 08:52] VITALS: BP 134/80
[2016-08-01] MEDS: diphenhydrAMINE 50 MG/ML INJ (BENADRYL) IV SCH (08:29)
[2016-08-01] MEDS: CATHETER FLUSH 10 ML SYR IV PRN ×2 (08:29→10:26)
[2016-08-01 08:30] VITALS: BP 137/89
[2016-08-01] MEDS: DEXTROSE IV SCH (08:30)
[2016-08-01] MEDS: MAGNESIUM SULFATE IV SCH (08:30)
[2016-08-01] MEDS: ACETAMINOPHEN 325 MG TABLET/CAPLET (TYLENOL) PO SCH (08:30)
[2016-08-01 10:30] VITALS: BP 137/89
[2016-08-04] MEDS: diphenhydrAMINE 50 MG/ML INJ (BENADRYL) IV SCH (08:45)
[2016-08-04] MEDS: DEXTROSE IV SCH (08:46)
[2016-08-04] MEDS: CATHETER FLUSH 10 ML SYR IV PRN ×2 (08:46→10:30)
[2016-08-04] MEDS: MAGNESIUM SULFATE IV SCH (08:46)
[2016-08-04 09:03] VITALS: BP 160/84
[2016-08-08] MEDS: DEXTROSE IV SCH (08:19)
[2016-08-08] MEDS: MAGNESIUM SULFATE IV SCH (08:19)
[2016-08-08] MEDS: CATHETER FLUSH 10 ML SYR IV PRN ×2 (08:20→10:20)
[2016-08-08] MEDS: diphenhydrAMINE 50 MG/ML INJ (BENADRYL) IV SCH (08:20)
[2016-08-08 08:38] VITALS: BP 130/80
[2016-08-11] MEDS: CATHETER FLUSH 10 ML SYR IV PRN ×2 (08:23→10:20)
[2016-08-11] MEDS: diphenhydrAMINE 50 MG/ML INJ (BENADRYL) IV SCH (08:23)
[2016-08-11] MEDS: ACETAMINOPHEN 325 MG TABLET/CAPLET (TYLENOL) PO SCH (08:24)
[2016-08-11] MEDS: MAGNESIUM SULFATE IV SCH (08:24)
[2016-08-11] MEDS: DEXTROSE IV SCH (08:24)
[2016-08-11 08:25] VITALS: BP 154/90
--- NOTE | 2016-08-11 12:16 | Diagnostic Imaging Report ---
PROCEDURE: CT chest without contrast. TECHNIQUE: Multiple contiguous axial images were obtained through the chest without the use of intravenous contrast. INDICATION: Left pleural effusion. FINDINGS: There is a moderate left pleural effusion. There is suggestion of atelectasis in the posterior aspect of the left lower lobe related to the effusion with no definitive superimposed pneumonia. The right lung demonstrates a tiny effusion. There is no lung mass or suspicious nodule seen. The heart size is mildly enlarged. No pericardial effusion. There is normal caliber of the thoracic aorta. No mass or significantly enlarged lymph nodes. No axillary lymphadenopathy. There is a right PICC line terminating in the distal SVC level. The sections in the upper abdomen demonstrate no definite abnormality. IMPRESSION: Moderate left pleural effusion associated with atelectasis in the left lower lobe. Dictated by: Dictated on workstation # [id number]
[~2016-08-15] VITALS: Ht 182.9 cm; Wt 80.7 kg
[2016-08-15] MEDS: diphenhydrAMINE 50 MG/ML INJ (BENADRYL) IV SCH (08:46)
[2016-08-15] MEDS: DEXTROSE IV SCH (08:47)
[2016-08-15] MEDS: CATHETER FLUSH 10 ML SYR IV PRN ×2 (08:47→10:45)
[2016-08-15] MEDS: MAGNESIUM SULFATE IV SCH (08:47)
[2016-08-15] MEDS: ACETAMINOPHEN 325 MG TABLET/CAPLET (TYLENOL) PO SCH (08:47)
[2016-08-15 10:50] VITALS: BP 126/81
== END 2016-08-17 | disposition home or self-care (01) ==
LOC: SDC 08:22
PROVIDERS: ATTEND Family Medicine
DX: E61.2 Magnesium deficiency (principal)
CPT/HCPCS: 71250; 96365; 96366; 96374; 99211

== ENCOUNTER 2016-09-07 20:56 | Outpatient (CLI) | payer MEDICARE, OTHER | END 2016-09-08 05:35 | disposition home or self-care (01) | LOC: SLEEP 20:56 | PROVIDERS: ATTEND Family Medicine | DX: G47.33 Obstructive sleep apnea (adult) (pediatric) (principal); I10 Essential (primary) hypertension; I25.10 Atherosclerotic heart disease of native coronary artery without angina pectoris | CPT/HCPCS: 95810 ==

== ENCOUNTER → 2016-10-20 | Outpatient (CLI) | payer MEDICARE, OTHER ==
[2016-10-20 10:43] LABS: BASOPHILS # (AUTO) 0.1 10^3/uL (0.0-0.1); BASOPHILS % (AUTO) 1 % (0-10); EOSINOPHILS # (AUTO) 0.2 10^3/uL (0.0-0.3); EOSINOPHILS % (AUTO) 3 % (0-10); LYMPHOCYTES # (AUTO) 0.9 X 10^3 (1.0-4.0); LYMPHOCYTES % (AUTO) 13 % (12-44); MEAN CORPUSCULAR HEMOGLOBIN 32 PG (25-34); MEAN CORPUSCULAR HGB CONC 33 G/DL (32-36); MEAN CORPUSCULAR VOLUME 98 FL (80-99); MEAN PLATELET VOLUME 9.1 FL (7.4-10.4); MONOCYTES # (AUTO) 0.9 X 10^3 (0.0-1.0); MONOCYTES % (AUTO) 13 % (0-12); NEUTROPHILS # (AUTO) 4.5 X 10^3 (1.8-7.8); NEUTROPHILS % (AUTO) 69 % (42-75); PLATELET COUNT 297 10^3/uL (130-400); RED BLOOD COUNT 3.93 10^6/uL (4.35-5.85); RED CELL DISTRIBUTION WIDTH 15.6 % (10.0-14.5); WHITE BLOOD COUNT 6.5 10^3/uL (4.3-11.0)
--- NOTE | 2016-10-20 21:01 | Diagnostic Imaging Report ---
EXAMINATION: Right upper extremity venous Doppler. INDICATION: Right forearm redness. TECHNIQUE: Spectral and color flow imaging of the deep venous system of the right upper extremity was performed. COMPARISON: There are no prior studies available for comparison. FINDINGS: There is generally good blood flow and compressibility at all levels. There is no sign of deep venous thrombosis. There is a PICC line in the basilic vein. IMPRESSION: 1. There is no evidence for deep venous thrombosis. 2. There is a PICC line in place. Dictated by: Dictated on workstation # [id number]
== END ==
LOC: RAD 10:09
PROVIDERS: ATTEND Family Medicine
DX: M79.601 Pain in right arm (principal); Z96.89 Presence of other specified functional implants
CPT/HCPCS: 36415; 85025

== ENCOUNTER 2016-11-14 08:18 | Outpatient (RCR) | payer MEDICARE, OTHER ==
[2016-08-18] MEDS: MAGNESIUM 1 GM/100 ML IVPB 200 ML IV SCH (09:36)
[2016-08-18] MEDS: diphenhydrAMINE 50 MG/ML INJ (BENADRYL) IV SCH (09:36)
[2016-08-18] MEDS: ACETAMINOPHEN 325 MG TABLET/CAPLET (TYLENOL) PO SCH (09:37)
[2016-08-18] MEDS: CATHETER FLUSH 10 ML SYR IV PRN ×2 (09:37→11:20)
[2016-08-18 10:42] VITALS: BP 138/86
[2016-08-22] MEDS: diphenhydrAMINE 50 MG/ML INJ (BENADRYL) IV SCH (08:32)
[2016-08-22] MEDS: CATHETER FLUSH 10 ML SYR IV PRN ×2 (08:32→10:21)
[2016-08-22] MEDS: MAGNESIUM 1 GM/100 ML IVPB 200 ML IV SCH (08:33)
[2016-08-22 10:29] VITALS: BP 133/83
[2016-08-25] MEDS: diphenhydrAMINE 50 MG/ML INJ (BENADRYL) IV SCH (08:31)
[2016-08-25] MEDS: CATHETER FLUSH 10 ML SYR IV PRN ×2 (08:31→10:32)
[2016-08-25] MEDS: MAGNESIUM 1 GM/100 ML IVPB 200 ML IV SCH (08:32)
[2016-08-25 08:40] VITALS: BP 147/92
[2016-08-29] MEDS: CATHETER FLUSH 10 ML SYR IV PRN ×2 (08:52→10:40)
[2016-08-29] MEDS: diphenhydrAMINE 50 MG/ML INJ (BENADRYL) IV SCH (08:52)
[2016-08-29] MEDS: ACETAMINOPHEN 325 MG TABLET/CAPLET (TYLENOL) PO SCH (08:53)
[2016-08-29] MEDS: MAGNESIUM 1 GM/100 ML IVPB 200 ML IV SCH (08:53)
[2016-08-29 10:40] VITALS: BP 135/93
[2016-09-01] MEDS: diphenhydrAMINE 50 MG/ML INJ (BENADRYL) IV SCH (08:29)
[2016-09-01] MEDS: CATHETER FLUSH 10 ML SYR IV PRN ×2 (08:29→10:29)
[2016-09-01] MEDS: MAGNESIUM 1 GM/100 ML IVPB 200 ML IV SCH (08:29)
[2016-09-01] MEDS: ACETAMINOPHEN 325 MG TABLET/CAPLET (TYLENOL) PO SCH (08:29)
[2016-09-01 10:30] VITALS: BP 153/87
[2016-09-05] MEDS: MAGNESIUM 1 GM/100 ML IVPB 200 ML IV SCH (08:34)
[2016-09-05] MEDS: diphenhydrAMINE 50 MG/ML INJ (BENADRYL) IV SCH (08:34)
[2016-09-05] MEDS: CATHETER FLUSH 10 ML SYR IV PRN ×2 (08:35→10:36)
[2016-09-05 09:16] VITALS: BP 140/82
[2016-09-08] MEDS: diphenhydrAMINE 50 MG/ML INJ (BENADRYL) IV SCH (09:05)
[2016-09-08] MEDS: CATHETER FLUSH 10 ML SYR IV PRN ×2 (09:06→11:12)
[2016-09-08] MEDS: MAGNESIUM 1 GM/100 ML IVPB 200 ML IV SCH (09:06)
[2016-09-08 09:31] VITALS: BP 146/88
[2016-09-12] MEDS: MAGNESIUM 1 GM/100 ML IVPB 200 ML IV SCH (08:35)
[2016-09-12] MEDS: diphenhydrAMINE 50 MG/ML INJ (BENADRYL) IV SCH (08:35)
[2016-09-12] MEDS: CATHETER FLUSH 10 ML SYR IV PRN (08:36)
[2016-09-12 10:30] VITALS: BP 136/83
[2016-09-15] MEDS: diphenhydrAMINE 50 MG/ML INJ (BENADRYL) IV SCH (08:26)
[2016-09-15] MEDS: MAGNESIUM 1 GM/100 ML IVPB 200 ML IV SCH (08:30)
[2016-09-15 10:30] VITALS: BP 107/55
[2016-09-15] MEDS: CATHETER FLUSH 10 ML SYR IV PRN (10:36)
[2016-09-19] MEDS: MAGNESIUM 1 GM/100 ML IVPB 200 ML IV SCH (08:30)
[2016-09-19] MEDS: diphenhydrAMINE 50 MG/ML INJ (BENADRYL) IV SCH (08:30)
[2016-09-19] MEDS: CATHETER FLUSH 10 ML SYR IV PRN (08:30)
[2016-09-19 13:22] VITALS: BP 107/55
[2016-09-22] MEDS: CATHETER FLUSH 10 ML SYR IV PRN (08:39)
[2016-09-22] MEDS: MAGNESIUM 1 GM/100 ML IVPB 200 ML IV SCH (08:41)
[2016-09-22] MEDS: diphenhydrAMINE 50 MG/ML INJ (BENADRYL) IV SCH (08:41)
[2016-09-22 12:51] VITALS: BP 122/77
[2016-09-26] MEDS: diphenhydrAMINE 50 MG/ML INJ (BENADRYL) IV SCH (08:36)
[2016-09-26] MEDS: CATHETER FLUSH 10 ML SYR IV PRN ×2 (08:37→10:50)
[2016-09-26] MEDS: MAGNESIUM 1 GM/100 ML IVPB 200 ML IV SCH (08:37)
[2016-09-26] MEDS: ACETAMINOPHEN 325 MG TABLET/CAPLET (TYLENOL) PO SCH (08:37)
[2016-09-26 10:55] VITALS: BP 140/79
[2016-09-29] MEDS: diphenhydrAMINE 50 MG/ML INJ (BENADRYL) IV SCH (08:28)
[2016-09-29] MEDS: CATHETER FLUSH 10 ML SYR IV PRN ×2 (08:29→10:25)
[2016-09-29] MEDS: MAGNESIUM 1 GM/100 ML IVPB 200 ML IV SCH (08:29)
[2016-09-29 08:34] VITALS: BP 142/92
[2016-10-03] MEDS: MAGNESIUM 1 GM/100 ML IVPB 200 ML IV SCH (08:36)
[2016-10-03] MEDS: diphenhydrAMINE 50 MG/ML INJ (BENADRYL) IV SCH (08:36)
[2016-10-03] MEDS: CATHETER FLUSH 10 ML SYR IV PRN ×2 (08:37→10:36)
[2016-10-03] MEDS: ACETAMINOPHEN 325 MG TABLET/CAPLET (TYLENOL) PO SCH (08:37)
[2016-10-03 10:40] VITALS: BP 150/94
[2016-10-06] MEDS: MAGNESIUM 1 GM/100 ML IVPB 200 ML IV SCH (08:30)
[2016-10-06] MEDS: diphenhydrAMINE 50 MG/ML INJ (BENADRYL) IV SCH (08:30)
[2016-10-06] MEDS: CATHETER FLUSH 10 ML SYR IV PRN (08:31)
[2016-10-06 09:15] VITALS: BP 154/89
[2016-10-10] MEDS: CATHETER FLUSH 10 ML SYR IV PRN (08:37)
[2016-10-10] MEDS: diphenhydrAMINE 50 MG/ML INJ (BENADRYL) IV SCH (08:37)
[2016-10-10] MEDS: MAGNESIUM 1 GM/100 ML IVPB 200 ML IV SCH (08:37)
[2016-10-10 09:07] VITALS: BP_SYST 146; BP_SYST 150; BP_DIAS 80; BP_DIAS 92
[2016-10-13] MEDS: CATHETER FLUSH 10 ML SYR IV PRN ×2 (08:30→10:30)
[2016-10-13] MEDS: MAGNESIUM 1 GM/100 ML IVPB 200 ML IV SCH (08:30)
[2016-10-13] MEDS: diphenhydrAMINE 50 MG/ML INJ (BENADRYL) IV SCH (08:30)
[2016-10-13 08:45] VITALS: BP 170/89
[2016-10-17 08:45] VITALS: BP 157/89
[2016-10-17] MEDS: diphenhydrAMINE 50 MG/ML INJ (BENADRYL) IV SCH (08:45)
[2016-10-17] MEDS: ACETAMINOPHEN 325 MG TABLET/CAPLET (TYLENOL) PO SCH (08:45)
[2016-10-17] MEDS: CATHETER FLUSH 10 ML SYR IV PRN ×2 (08:45→10:53)
[2016-10-17] MEDS: MAGNESIUM 1 GM/100 ML IVPB 200 ML IV SCH (08:51)
[2016-10-20] MEDS: diphenhydrAMINE 50 MG/ML INJ (BENADRYL) IV SCH (08:33)
[2016-10-20] MEDS: CATHETER FLUSH 10 ML SYR IV PRN ×2 (08:34→10:40)
[2016-10-20] MEDS: MAGNESIUM 1 GM/100 ML IVPB 200 ML IV SCH (08:34)
[2016-10-20] MEDS: ACETAMINOPHEN 325 MG TABLET/CAPLET (TYLENOL) PO SCH (08:45)
[2016-10-20 10:42] VITALS: BP 143/92
[2016-10-25] MEDS: MAGNESIUM 1 GM/100 ML IVPB 200 ML IV SCH (08:32)
[2016-10-25] MEDS: CATHETER FLUSH 10 ML SYR IV PRN ×2 (08:33→10:41)
[2016-10-25] MEDS: diphenhydrAMINE 50 MG/ML INJ (BENADRYL) IV SCH (08:33)
[2016-10-25 09:07] VITALS: BP 143/87
[2016-10-27] MEDS: CATHETER FLUSH 10 ML SYR IV PRN ×2 (08:40→10:38)
[2016-10-27] MEDS: diphenhydrAMINE 50 MG/ML INJ (BENADRYL) IV SCH (08:40)
[2016-10-27] MEDS: ACETAMINOPHEN 325 MG TABLET/CAPLET (TYLENOL) PO SCH (08:41)
[2016-10-27] MEDS: MAGNESIUM 1 GM/100 ML IVPB 200 ML IV SCH (08:41)
[2016-10-27 10:45] VITALS: BP 135/89
[2016-10-31] MEDS: MAGNESIUM 1 GM/100 ML IVPB 200 ML IV SCH (08:28)
[2016-10-31] MEDS: CATHETER FLUSH 10 ML SYR IV PRN ×2 (08:28→10:31)
[2016-10-31] MEDS: diphenhydrAMINE 50 MG/ML INJ (BENADRYL) IV SCH (08:28)
[2016-10-31 10:38] VITALS: BP 151/93
[2016-11-03] MEDS: CATHETER FLUSH 10 ML SYR IV PRN ×2 (08:24→10:30)
[2016-11-03] MEDS: MAGNESIUM 1 GM/100 ML IVPB 200 ML IV SCH (08:24)
[2016-11-03] MEDS: diphenhydrAMINE 50 MG/ML INJ (BENADRYL) IV SCH (08:25)
[2016-11-03 08:38] VITALS: BP 146/82
[2016-11-07] MEDS: CATHETER FLUSH 10 ML SYR IV PRN ×2 (08:27→10:30)
[2016-11-07] MEDS: diphenhydrAMINE 50 MG/ML INJ (BENADRYL) IV SCH (08:28)
[2016-11-07] MEDS: MAGNESIUM 1 GM/100 ML IVPB 200 ML IV SCH (08:28)
[2016-11-07 10:34] VITALS: BP 110/75
[2016-11-10 08:44] VITALS: BP 136/88
[2016-11-10] MEDS: diphenhydrAMINE 50 MG/ML INJ (BENADRYL) IV SCH (08:50)
[2016-11-10] MEDS: MAGNESIUM 1 GM/100 ML IVPB 200 ML IV SCH ×2 (08:50→09:53)
[2016-11-10] MEDS: ACETAMINOPHEN 325 MG TABLET/CAPLET (TYLENOL) PO SCH (08:59)
[~2016-11-14] VITALS: Ht 182.9 cm; Wt 80.7 kg
[~2016-11-14 08:18] MED LIST changes: +MAGNESIUM 1 GM/100 ML IVPB 200 ML IV ONE; +diphenhydrAMINE 50 MG/ML INJ (BENADRYL) ONE
[2016-11-14] MEDS: diphenhydrAMINE 50 MG/ML INJ (BENADRYL) IV SCH (08:29)
[2016-11-14] MEDS: CATHETER FLUSH 10 ML SYR IV PRN ×2 (08:29→10:30)
[2016-11-14] MEDS: MAGNESIUM 1 GM/100 ML IVPB 200 ML IV SCH (08:30)
[2016-11-14 10:45] VITALS: BP 136/89
[2016-11-17] MEDS ORDERED: diphenhydrAMINE 50 MG/ML INJ (BENADRYL) ONE (08:58)
[2016-11-17] MEDS ORDERED: MAGNESIUM 1 GM/100 ML IVPB 200 ML IV ONE (08:59)
== END 2016-11-16 | disposition home or self-care (01) ==
LOC: SDC 08:18
PROVIDERS: ATTEND Family Medicine
DX: E61.2 Magnesium deficiency (principal)
CPT/HCPCS: 36592; 96365; 96366; 96374; 96375; 99211

== ENCOUNTER 2016-11-17 09:03 | Outpatient (RCR) | payer MEDICARE, OTHER ==
[~2016-11-17] VITALS: Ht 182.9 cm; Wt 80.7 kg
[~2016-11-17 09:03] MED LIST changes: +ACETAMINOPHEN 325 MG TABLET/CAPLET (TYLENOL) PO SCH; +DEXTROSE IV SCH; -MAGNESIUM 1 GM/100 ML IVPB 200 ML IV ONE; +[UNRECOGNIZED DRUG - OTHER] IV SCH; +diphenhydrAMINE 50 MG/ML INJ (BENADRYL) IV SCH; -diphenhydrAMINE 50 MG/ML INJ (BENADRYL) ONE
[2016-11-17 09:28] VITALS: BP 157/93
[2016-11-17 11:22] VITALS: BP 157/93
== END 2016-11-19 | disposition home or self-care (01) ==
LOC: SDC 09:03
PROVIDERS: ATTEND Family Medicine
DX: E61.2 Magnesium deficiency (principal)
CPT/HCPCS: 96365; 96366; 96375

== ENCOUNTER 2017-02-17 08:00 | Outpatient (RCR) | payer MEDICARE, OTHER ==
[2016-11-21] MEDS: ACETAMINOPHEN 325 MG TABLET/CAPLET (TYLENOL) PO SCH (08:50)
[2016-11-21] MEDS: [UNRECOGNIZED DRUG - OTHER] IV SCH (08:53)
[2016-11-21] MEDS: MAGNESIUM 1 GM/100 ML IV SCH (08:53)
[2016-11-21] MEDS: diphenhydrAMINE 50 MG/ML INJ (BENADRYL) IV SCH (08:53)
[2016-11-21 11:03] VITALS: BP 146/98
[2016-11-24] MEDS: diphenhydrAMINE 50 MG/ML INJ (BENADRYL) IV SCH (08:35)
[2016-11-24] MEDS: [UNRECOGNIZED DRUG - OTHER] IV SCH (08:35)
[2016-11-24] MEDS: MAGNESIUM 1 GM/100 ML IV SCH (08:35)
[2016-11-24 09:31] VITALS: BP 126/88
[2016-11-28] MEDS: diphenhydrAMINE 50 MG/ML INJ (BENADRYL) IV SCH (08:20)
[2016-11-28] MEDS: MAGNESIUM 1 GM/100 ML IV SCH (08:31)
[2016-11-28] MEDS: ACETAMINOPHEN 325 MG TABLET/CAPLET (TYLENOL) PO SCH (08:31)
[2016-11-28] MEDS: [UNRECOGNIZED DRUG - OTHER] IV SCH (08:31)
[2016-11-28 10:30] VITALS: BP 110/78
[2016-12-01 08:27] VITALS: BP 130/95
[2016-12-01] MEDS: diphenhydrAMINE 50 MG/ML INJ (BENADRYL) IV SCH (08:27)
[2016-12-01] MEDS: MAGNESIUM 1 GM/100 ML IV SCH (08:28)
[2016-12-01] MEDS: [UNRECOGNIZED DRUG - OTHER] IV SCH (08:28)
[2016-12-01] MEDS: ACETAMINOPHEN 325 MG TABLET/CAPLET (TYLENOL) PO SCH (08:51)
[2016-12-05] MEDS: CATHETER FLUSH 10 ML SYR IV PRN ×3 (08:37→10:35)
[2016-12-05] MEDS: diphenhydrAMINE 50 MG/ML INJ (BENADRYL) IV SCH (08:38)
[2016-12-05] MEDS: [UNRECOGNIZED DRUG - OTHER] IV SCH (08:38)
[2016-12-05] MEDS: MAGNESIUM 1 GM/100 ML IV SCH (08:38)
[2016-12-05 10:45] VITALS: BP 99/74
[2016-12-08] MEDS: CATHETER FLUSH 10 ML SYR IV PRN (08:25)
[2016-12-08] MEDS: MAGNESIUM 1 GM/100 ML IV SCH (08:25)
[2016-12-08] MEDS: [UNRECOGNIZED DRUG - OTHER] IV SCH (08:25)
[2016-12-08] MEDS: diphenhydrAMINE 50 MG/ML INJ (BENADRYL) IV SCH (08:25)
[2016-12-08 09:03] VITALS: BP 123/83
[2016-12-08 10:52] VITALS: BP 123/83
[2016-12-12] MEDS: [UNRECOGNIZED DRUG - OTHER] IV SCH (08:35)
[2016-12-12] MEDS: MAGNESIUM 1 GM/100 ML IV SCH (08:35)
[2016-12-12] MEDS: diphenhydrAMINE 50 MG/ML INJ (BENADRYL) IV SCH (08:35)
[2016-12-12] MEDS: CATHETER FLUSH 10 ML SYR IV PRN ×2 (08:35→10:30)
[2016-12-12 10:30] VITALS: BP 123/75
[2016-12-15] MEDS: ACETAMINOPHEN 325 MG TABLET/CAPLET (TYLENOL) PO SCH (08:41)
[2016-12-15] MEDS: MAGNESIUM 1 GM/100 ML IV SCH (08:41)
[2016-12-15] MEDS: CATHETER FLUSH 10 ML SYR IV PRN ×2 (08:41→10:35)
[2016-12-15] MEDS: [UNRECOGNIZED DRUG - OTHER] IV SCH (08:41)
[2016-12-15] MEDS: diphenhydrAMINE 50 MG/ML INJ (BENADRYL) IV SCH (08:41)
[2016-12-15 10:35] VITALS: BP_SYST 123; BP_SYST 130; BP_DIAS 75; BP_DIAS 91
[2016-12-19] MEDS: CATHETER FLUSH 10 ML SYR IV PRN ×2 (08:28→10:25)
[2016-12-19] MEDS: diphenhydrAMINE 50 MG/ML INJ (BENADRYL) IV SCH (08:29)
[2016-12-19] MEDS: [UNRECOGNIZED DRUG - OTHER] IV SCH (08:30)
[2016-12-19] MEDS: MAGNESIUM 1 GM/100 ML IV SCH (08:30)
[2016-12-19 10:30] VITALS: BP 113/78
[2016-12-22 08:20] VITALS: BP 133/84
[2016-12-22] MEDS: diphenhydrAMINE 50 MG/ML INJ (BENADRYL) IV SCH (08:46)
[2016-12-22] MEDS: MAGNESIUM 1 GM/100 ML IV SCH (08:46)
[2016-12-22] MEDS: [UNRECOGNIZED DRUG - OTHER] IV SCH (08:46)
[2016-12-22] MEDS: CATHETER FLUSH 10 ML SYR IV PRN (08:46)
[2016-12-22 08:54] LABS: BASOPHILS # (AUTO) 0.1 10^3/uL (0.0-0.1); BASOPHILS % (AUTO) 1 % (0-10); EOSINOPHILS # (AUTO) 0.1 10^3/uL (0.0-0.3); EOSINOPHILS % (AUTO) 2 % (0-10); HEMATOCRIT 40 % (40-54); HEMOGLOBIN 13.5 G/DL (13.3-17.7); LYMPHOCYTES # (AUTO) 0.9 X 10^3 (1.0-4.0); LYMPHOCYTES % (AUTO) 13 % (12-44); MEAN CORPUSCULAR HEMOGLOBIN 33 PG (25-34); MEAN CORPUSCULAR HGB CONC 34 G/DL (32-36); MEAN CORPUSCULAR VOLUME 96 FL (80-99); MEAN PLATELET VOLUME 8.9 FL (7.4-10.4); MONOCYTES # (AUTO) 0.6 X 10^3 (0.0-1.0); MONOCYTES % (AUTO) 10 % (0-12); NEUTROPHILS # (AUTO) 5.1 X 10^3 (1.8-7.8); NEUTROPHILS % (AUTO) 76 % (42-75); PLATELET COUNT 287 10^3/uL (130-400); RED BLOOD COUNT 4.11 10^6/uL (4.35-5.85); WHITE BLOOD COUNT 6.7 10^3/uL (4.3-11.0)
[2016-12-22 09:15] LABS: ALBUMIN 3.8 GM/DL (3.2-4.5); BILIRUBIN,TOTAL 0.5 MG/DL (0.1-1.0); CALCIUM 8.8 MG/DL (8.5-10.1); CREATININE SERUM 1.63 MG/DL (0.60-1.30); POTASSIUM 4.6 MMOL/L (3.6-5.0); TOTAL PROTEIN 7.1 GM/DL (6.4-8.2)
[2016-12-22 09:24] LABS: MAGNESIUM 0.8 MG/DL (1.8-2.4)
[2016-12-22 10:56] VITALS: BP 133/84
[2016-12-26] MEDS: ACETAMINOPHEN 325 MG TABLET/CAPLET (TYLENOL) PO SCH (08:25)
[2016-12-26] MEDS: diphenhydrAMINE 50 MG/ML INJ (BENADRYL) IV SCH (08:25)
[2016-12-26] MEDS: CATHETER FLUSH 10 ML SYR IV PRN (08:25)
[2016-12-26] MEDS: MAGNESIUM 1 GM/100 ML IV SCH (08:30)
[2016-12-26] MEDS: [UNRECOGNIZED DRUG - OTHER] IV SCH (08:30)
[2016-12-26 10:30] VITALS: BP 122/86
[2016-12-29 08:13] VITALS: BP 122/86
[2016-12-29] MEDS: diphenhydrAMINE 50 MG/ML INJ (BENADRYL) IV SCH (08:22)
[2016-12-29 08:23] VITALS: BP 122/86
[2016-12-29] MEDS: [UNRECOGNIZED DRUG - OTHER] IV SCH (08:23)
[2016-12-29] MEDS: MAGNESIUM 1 GM/100 ML IV SCH (08:23)
[2016-12-29 09:11] VITALS: BP 141/88
[2016-12-29 10:14] VITALS: BP 141/88
[2017-01-02] MEDS: CATHETER FLUSH 10 ML SYR IV PRN ×2 (08:34→10:35)
[2017-01-02] MEDS: diphenhydrAMINE 50 MG/ML INJ (BENADRYL) IV SCH (08:34)
[2017-01-02] MEDS: MAGNESIUM 1 GM/100 ML IV SCH (08:35)
[2017-01-02] MEDS: [UNRECOGNIZED DRUG - OTHER] IV SCH (08:35)
[2017-01-02 10:45] VITALS: BP 145/96
[2017-01-05] MEDS: MAGNESIUM 1 GM/100 ML IV SCH (08:14)
[2017-01-05] MEDS: [UNRECOGNIZED DRUG - OTHER] IV SCH (08:14)
[2017-01-05] MEDS: diphenhydrAMINE 50 MG/ML INJ (BENADRYL) IV SCH (08:14)
[2017-01-05] MEDS: ACETAMINOPHEN 325 MG TABLET/CAPLET (TYLENOL) PO SCH (08:15)
[2017-01-05] MEDS: CATHETER FLUSH 10 ML SYR IV PRN ×2 (08:15→10:08)
[2017-01-05 10:08] VITALS: BP 128/92
[2017-01-09] MEDS: [UNRECOGNIZED DRUG - OTHER] IV SCH (08:36)
[2017-01-09] MEDS: diphenhydrAMINE 50 MG/ML INJ (BENADRYL) IV SCH (08:36)
[2017-01-09] MEDS: MAGNESIUM 1 GM/100 ML IV SCH (08:36)
[2017-01-09] MEDS: CATHETER FLUSH 10 ML SYR IV PRN ×2 (08:37→10:37)
[2017-01-09] MEDS: ACETAMINOPHEN 325 MG TABLET/CAPLET (TYLENOL) PO SCH (08:37)
[2017-01-09 10:39] VITALS: BP 119/83
[2017-01-13] MEDS: MAGNESIUM 1 GM/100 ML IV SCH (08:56)
[2017-01-13] MEDS: CATHETER FLUSH 10 ML SYR IV PRN ×2 (08:56→10:25)
[2017-01-13] MEDS: [UNRECOGNIZED DRUG - OTHER] IV SCH (08:56)
[2017-01-13] MEDS: diphenhydrAMINE 50 MG/ML INJ (BENADRYL) IV SCH (08:56)
[2017-01-13 10:30] VITALS: BP 156/95
[2017-01-16] MEDS: diphenhydrAMINE 50 MG/ML INJ (BENADRYL) IV SCH (08:06)
[2017-01-16] MEDS: MAGNESIUM 1 GM/100 ML IV SCH (08:06)
[2017-01-16] MEDS: CATHETER FLUSH 10 ML SYR IV PRN ×2 (08:06→10:06)
[2017-01-16] MEDS: [UNRECOGNIZED DRUG - OTHER] IV SCH (08:06)
[2017-01-16] MEDS: ACETAMINOPHEN 325 MG TABLET/CAPLET (TYLENOL) PO SCH (08:07)
[2017-01-16 10:08] VITALS: BP 132/88
[2017-01-19] MEDS: diphenhydrAMINE 50 MG/ML INJ (BENADRYL) IV SCH (08:35)
[2017-01-19] MEDS: MAGNESIUM 1 GM/100 ML IV SCH (08:36)
[2017-01-19] MEDS: [UNRECOGNIZED DRUG - OTHER] IV SCH (08:36)
[2017-01-19] MEDS: CATHETER FLUSH 10 ML SYR IV PRN (10:40)
[2017-01-19 10:45] VITALS: BP 132/88
[2017-01-23] MEDS: MAGNESIUM 1 GM/100 ML IV SCH (08:56)
[2017-01-23] MEDS: diphenhydrAMINE 50 MG/ML INJ (BENADRYL) IV SCH (08:56)
[2017-01-23] MEDS: CATHETER FLUSH 10 ML SYR IV PRN ×2 (08:56→10:33)
[2017-01-23] MEDS: [UNRECOGNIZED DRUG - OTHER] IV SCH (08:56)
[2017-01-23 10:33] VITALS: BP 108/64
[2017-01-26 08:20] VITALS: BP 128/78
[2017-01-26] MEDS: ACETAMINOPHEN 325 MG TABLET/CAPLET (TYLENOL) PO SCH ×2 (08:20→08:25)
[2017-01-26] MEDS: diphenhydrAMINE 50 MG/ML INJ (BENADRYL) IV SCH (08:25)
[2017-01-26] MEDS: MAGNESIUM 1 GM/100 ML IV SCH (08:25)
[2017-01-26] MEDS: [UNRECOGNIZED DRUG - OTHER] IV SCH (08:25)
[2017-01-26] MEDS: CATHETER FLUSH 10 ML SYR IV PRN (08:25)
[2017-01-30] MEDS: [UNRECOGNIZED DRUG - OTHER] IV SCH (08:20)
[2017-01-30] MEDS: diphenhydrAMINE 50 MG/ML INJ (BENADRYL) IV SCH (08:20)
[2017-01-30] MEDS: CATHETER FLUSH 10 ML SYR IV PRN ×2 (08:20→10:25)
[2017-01-30] MEDS: MAGNESIUM 1 GM/100 ML IV SCH (08:20)
[2017-01-30] MEDS: ACETAMINOPHEN 325 MG TABLET/CAPLET (TYLENOL) PO SCH (09:10)
[2017-01-30 10:30] VITALS: BP 115/67
[2017-02-02] MEDS: ACETAMINOPHEN 325 MG TABLET/CAPLET (TYLENOL) PO SCH (09:05)
[2017-02-02] MEDS: diphenhydrAMINE 50 MG/ML INJ (BENADRYL) IV SCH (09:05)
[2017-02-02] MEDS: MAGNESIUM 1 GM/100 ML IV SCH (09:10)
[2017-02-02] MEDS: [UNRECOGNIZED DRUG - OTHER] IV SCH (09:10)
[2017-02-02 11:14] VITALS: BP 117/70
[2017-02-06] MEDS: diphenhydrAMINE 50 MG/ML INJ (BENADRYL) IV SCH (08:24)
[2017-02-06] MEDS: MAGNESIUM 1 GM/100 ML IV SCH (08:25)
[2017-02-06] MEDS: [UNRECOGNIZED DRUG - OTHER] IV SCH (08:25)
[2017-02-06] MEDS: CATHETER FLUSH 10 ML SYR IV PRN ×2 (08:25→10:30)
[2017-02-06 10:39] VITALS: BP 121/68
[2017-02-09] MEDS: [UNRECOGNIZED DRUG - OTHER] IV SCH (08:27)
[2017-02-09] MEDS: diphenhydrAMINE 50 MG/ML INJ (BENADRYL) IV SCH (08:27)
[2017-02-09] MEDS: CATHETER FLUSH 10 ML SYR IV PRN ×2 (08:27→10:32)
[2017-02-09] MEDS: MAGNESIUM 1 GM/100 ML IV SCH (08:27)
[2017-02-09] MEDS: ACETAMINOPHEN 325 MG TABLET/CAPLET (TYLENOL) PO SCH (08:28)
[2017-02-09 10:34] VITALS: BP 134/71
[2017-02-14] MEDS: CATHETER FLUSH 10 ML SYR IV PRN ×2 (08:24→10:25)
[2017-02-14] MEDS: diphenhydrAMINE 50 MG/ML INJ (BENADRYL) IV SCH (08:24)
[2017-02-14] MEDS: [UNRECOGNIZED DRUG - OTHER] IV SCH (08:25)
[2017-02-14] MEDS: MAGNESIUM 1 GM/100 ML IV SCH (08:25)
[2017-02-14 10:30] VITALS: BP 124/81
[~2017-02-17] VITALS: Ht 182.9 cm; Wt 80.7 kg
[~2017-02-17 08:00] MED LIST changes: -ACETAMINOPHEN 325 MG TABLET/CAPLET (TYLENOL) PO SCH; +ACHD5005 PO; -DEXTROSE IV SCH; -HYDR-3812 PO; +METO100T12 PO; -METO100T2 PO; -[UNRECOGNIZED DRUG - OTHER] IV SCH; -diphenhydrAMINE 50 MG/ML INJ (BENADRYL) IV SCH
[2017-02-17] MEDS: ACETAMINOPHEN 325 MG TABLET/CAPLET (TYLENOL) PO SCH (08:00)
[2017-02-17] MEDS: CATHETER FLUSH 10 ML SYR IV PRN (08:05)
[2017-02-17] MEDS: MAGNESIUM 1 GM/100 ML IV SCH (08:05)
[2017-02-17] MEDS: [UNRECOGNIZED DRUG - OTHER] IV SCH (08:05)
[2017-02-17] MEDS: diphenhydrAMINE 50 MG/ML INJ (BENADRYL) IV SCH (09:05)
[2017-02-17 10:05] VITALS: BP 115/79
== END 2017-02-19 | disposition home or self-care (01) ==
LOC: SDC 08:00
PROVIDERS: ATTEND Family Medicine
DX: E61.2 Magnesium deficiency (principal)
CPT/HCPCS: 36415; 36592; 76937; 80053; 80061; 83735; 84443; 85025; 96365; 96366; 96374; 96375; 99211

== ENCOUNTER → 2017-03-27 | Outpatient (CLI) | payer MEDICARE, OTHER ==
--- NOTE | 2017-03-27 13:40 | Diagnostic Imaging Report ---
EXAMINATION: Bilateral renal ultrasound. INDICATION: Abnormal kidney laboratory values. There are no prior studies available for comparison. FINDINGS: Both kidneys are identified. The right kidney measures 11.3 x 4.9 x 4.9 cm while the left kidney is estimated to be 11.4 x 5.4 x 4.7 cm. There is no evidence for a solid renal mass or for hydronephrosis of either kidney. Renal cortices are normal in thickness and echogenicity. There is no shadowing from the kidneys to suggest nephrolithiasis. The bladder is visualized. The bladder is only partially filled and consequently not well evaluated. There is no obvious bladder abnormality evident. Both ureteral jets are noted. IMPRESSION: 1. There is no evidence for a solid renal mass or for an acute abnormality of either kidney. 2. The urinary bladder is grossly unremarkable. Dictated by: Dictated on workstation # [id number]
== END ==
LOC: RAD 08:31
PROVIDERS: ATTEND Family Medicine
DX: R94.4 Abnormal results of kidney function studies (principal)
CPT/HCPCS: 76770

== ENCOUNTER → 2017-04-10 | Outpatient (CLI) | payer MEDICARE, OTHER ==
--- NOTE | 2017-04-10 11:30 | Diagnostic Imaging Report ---
INDICATION: Cough and shortness of air. Time of exam 11:39 AM Correlation is made with prior study from 08/04/2016. The heart size is stable. There are changes of median sternotomy. Right sided PICC line has tip overlying the upper SVC. There has been formation of a loop within the PICC line at the level of the medial right subclavian vein and jugular vein confluence. This was not present on prior exam. A left-sided effusion has increased. There is some associated infiltrate atelectasis left base. Tiny nodular density in the right base is noted, indeterminate. Impression: 1. Increasing left-sided pleural effusion and a left-sided infiltrate/atelectasis compared with examination from 08/04/2016. 2. A loop has formed in the distal aspect of the PICC line however, the distal tip does remain antegrade and overlies the SVC. Dictated by: Dictated on workstation # [id number]
== END ==
LOC: RAD 08:35
PROVIDERS: ATTEND Family Medicine
DX: J90 Pleural effusion, not elsewhere classified (principal); Z95.828 Presence of other vascular implants and grafts
CPT/HCPCS: 71046

== ENCOUNTER → 2017-05-22 | Outpatient (RCR) | payer MEDICARE, OTHER ==
[2017-02-21 08:10] VITALS: BP 114/81
[2017-02-21] MEDS: ACETAMINOPHEN 325 MG TABLET/CAPLET (TYLENOL) PO SCH (08:34)
[2017-02-21] MEDS: diphenhydrAMINE 50 MG/ML INJ (BENADRYL) IV SCH (08:34)
[2017-02-21] MEDS: MAGNESIUM IV SCH (08:46)
[2017-02-23] MEDS: MAGNESIUM IV SCH (08:10)
[2017-02-23 08:19] VITALS: BP 132/86
[2017-02-23 10:08] VITALS: BP 132/86
[2017-02-27] MEDS: MAGNESIUM IV SCH (08:20)
[2017-02-27] MEDS: ACETAMINOPHEN 325 MG TABLET/CAPLET (TYLENOL) PO SCH (08:21)
[2017-02-27] MEDS: diphenhydrAMINE 50 MG/ML INJ (BENADRYL) IV SCH (08:21)
[2017-02-27 10:25] VITALS: BP 128/80
[2017-03-02] MEDS: MAGNESIUM IV SCH (08:22)
[2017-03-02] MEDS: diphenhydrAMINE 50 MG/ML INJ (BENADRYL) IV SCH (08:23)
[2017-03-02] MEDS: ACETAMINOPHEN 325 MG TABLET/CAPLET (TYLENOL) PO SCH (08:23)
[2017-03-02 08:28] VITALS: BP 132/94
[2017-03-02 10:37] VITALS: BP 132/94
[2017-03-06] MEDS: ACETAMINOPHEN 325 MG TABLET/CAPLET (TYLENOL) PO SCH ×2 (07:38→09:15)
[2017-03-06] MEDS: diphenhydrAMINE 50 MG/ML INJ (BENADRYL) IV SCH ×2 (07:38→09:15)
[2017-03-06] MEDS: MAGNESIUM IV SCH (08:11)
[2017-03-06 10:20] VITALS: BP 164/83
[2017-03-09] MEDS: MAGNESIUM IV SCH (08:18)
[2017-03-09 08:20] VITALS: BP 119/84
[2017-03-09 10:19] VITALS: BP 119/84
[2017-03-13] MEDS: ACETAMINOPHEN 325 MG TABLET/CAPLET (TYLENOL) PO SCH (08:25)
[2017-03-13] MEDS: MAGNESIUM IV SCH (08:25)
[2017-03-13] MEDS: diphenhydrAMINE 50 MG/ML INJ (BENADRYL) IV SCH (08:25)
[2017-03-13 10:30] VITALS: BP 132/88
[2017-03-16] MEDS: MAGNESIUM IV SCH (08:25)
[2017-03-16] MEDS: diphenhydrAMINE 50 MG/ML INJ (BENADRYL) IV SCH (08:52)
[2017-03-16] MEDS: ACETAMINOPHEN 325 MG TABLET/CAPLET (TYLENOL) PO SCH (08:52)
[2017-03-16 10:25] VITALS: BP 117/74
[2017-03-20] MEDS: MAGNESIUM IV SCH (08:35)
[2017-03-20 08:37] LABS: BASOPHILS # (AUTO) 0.1 10^3/uL (0.0-0.1); BASOPHILS % (AUTO) 1 % (0-10); EOSINOPHILS # (AUTO) 0.1 10^3/uL (0.0-0.3); EOSINOPHILS % (AUTO) 2 % (0-10); HEMATOCRIT 37 % (40-54); HEMOGLOBIN 12.8 G/DL (13.3-17.7); LYMPHOCYTES # (AUTO) 0.9 X 10^3 (1.0-4.0); LYMPHOCYTES % (AUTO) 14 % (12-44); MEAN CORPUSCULAR HEMOGLOBIN 33 PG (25-34); MEAN CORPUSCULAR HGB CONC 35 G/DL (32-36); MEAN CORPUSCULAR VOLUME 97 FL (80-99); MEAN PLATELET VOLUME 9.1 FL (7.4-10.4); MONOCYTES # (AUTO) 0.6 X 10^3 (0.0-1.0); MONOCYTES % (AUTO) 10 % (0-12); NEUTROPHILS # (AUTO) 4.5 X 10^3 (1.8-7.8); NEUTROPHILS % (AUTO) 73 % (42-75); PLATELET COUNT 283 10^3/uL (130-400); RED BLOOD COUNT 3.83 10^6/uL (4.35-5.85); RED CELL DISTRIBUTION WIDTH 13.5 % (10.0-14.5); WHITE BLOOD COUNT 6.2 10^3/uL (4.3-11.0)
[2017-03-20 09:01] LABS: ALBUMIN 3.8 GM/DL (3.2-4.5); BILIRUBIN,TOTAL 0.7 MG/DL (0.1-1.0); CALCIUM 8.7 MG/DL (8.5-10.1); CREATININE SERUM 1.81 MG/DL (0.60-1.30); POTASSIUM 4.4 MMOL/L (3.6-5.0); TOTAL PROTEIN 7.4 GM/DL (6.4-8.2)
[2017-03-20 09:22] LABS: FREE T4 (FREE THYROXINE) 1.11 NG/DL (0.70-1.48)
[2017-03-20 10:39] VITALS: BP 85/54
[2017-03-23 08:15] VITALS: BP 114/90
[2017-03-23] MEDS: MAGNESIUM IV SCH (08:19)
[2017-03-23] MEDS: ACETAMINOPHEN 325 MG TABLET/CAPLET (TYLENOL) PO SCH ×2 (08:20→10:46)
[2017-03-23] MEDS: diphenhydrAMINE 50 MG/ML INJ (BENADRYL) IV SCH ×2 (08:20→10:45)
[2017-03-27] MEDS: diphenhydrAMINE 50 MG/ML INJ (BENADRYL) IV SCH (08:38)
[2017-03-27] MEDS: MAGNESIUM IV SCH (08:38)
[2017-03-27] MEDS: ACETAMINOPHEN 325 MG TABLET/CAPLET (TYLENOL) PO SCH (08:38)
[2017-03-27 10:42] VITALS: BP 113/79
[2017-03-30] MEDS: diphenhydrAMINE 50 MG/ML INJ (BENADRYL) IV SCH (08:24)
[2017-03-30] MEDS: MAGNESIUM IV SCH (08:24)
[2017-03-30] MEDS: ACETAMINOPHEN 325 MG TABLET/CAPLET (TYLENOL) PO SCH (08:24)
[2017-03-30 08:30] VITALS: BP 118/82
[2017-04-03 08:05] VITALS: BP 102/65
[2017-04-03] MEDS: MAGNESIUM IV SCH (08:15)
[2017-04-03] MEDS: ACETAMINOPHEN 325 MG TABLET/CAPLET (TYLENOL) PO SCH (08:15)
[2017-04-03] MEDS: diphenhydrAMINE 50 MG/ML INJ (BENADRYL) IV SCH (08:15)
[2017-04-06] MEDS: MAGNESIUM IV SCH (08:51)
[2017-04-06 09:28] LABS: BILIRUBIN,URINE NEGATIVE (NEGATIVE); CLARITY,URINE CLEAR; COLOR,URINE YELLOW; GLUCOSE, URINE (UA) NEGATIVE (NEGATIVE); KETONES,URINE NEGATIVE (NEGATIVE); LEUKOCYTE ESTERASE ,URINE NEGATIVE (NEGATIVE); NITRITE,URINE NEGATIVE (NEGATIVE); PH,URINE 6 (5-9); PROTEIN,URINE 2+ (NEGATIVE); UROBILINOGEN,URINE NORMAL (NORMAL)
[2017-04-06 09:35] LABS: BACTERIA,URINE NEGATIVE /HPF; SQUAMOUS EPITHELIAL CELL,UR RARE /HPF
[2017-04-06 10:35] VITALS: BP 148/94
[2017-04-06] MEDS: diphenhydrAMINE 50 MG/ML INJ (BENADRYL) IV SCH (10:54)
[2017-04-06] MEDS: ACETAMINOPHEN 325 MG TABLET/CAPLET (TYLENOL) PO SCH (10:56)
[2017-04-10] MEDS: MAGNESIUM IV SCH (08:20)
[2017-04-10 09:20] VITALS: BP 147/87
[2017-04-13 09:05] VITALS: BP 153/84
[2017-04-13] MEDS: MAGNESIUM IV SCH (09:05)
[2017-04-13] MEDS: diphenhydrAMINE 50 MG/ML INJ (BENADRYL) IV SCH ×2 (09:08→09:09)
[2017-04-13] MEDS: ACETAMINOPHEN 325 MG TABLET/CAPLET (TYLENOL) PO SCH (09:09)
[2017-04-17 10:25] VITALS: BP 139/85
[2017-04-20] MEDS: MAGNESIUM IV SCH (08:16)
[2017-04-20 08:34] VITALS: BP 131/92
[2017-04-20 10:16] VITALS: BP 131/92
[2017-04-24 08:30] VITALS: BP 139/94
[2017-04-24] MEDS: MAGNESIUM IV SCH (09:04)
[2017-04-24] MEDS: diphenhydrAMINE 50 MG/ML INJ (BENADRYL) IV SCH (09:04)
[2017-04-24] MEDS: ACETAMINOPHEN 325 MG TABLET/CAPLET (TYLENOL) PO SCH (09:04)
[2017-04-27] MEDS: MAGNESIUM IV SCH (08:36)
[2017-04-27 10:28] VITALS: BP 140/92
[2017-05-01] MEDS: diphenhydrAMINE 50 MG/ML INJ (BENADRYL) IV SCH (08:31)
[2017-05-01] MEDS: MAGNESIUM IV SCH (08:31)
[2017-05-01] MEDS: ACETAMINOPHEN 325 MG TABLET/CAPLET (TYLENOL) PO SCH (08:32)
[2017-05-01 10:20] VITALS: BP 130/89
[2017-05-04] MEDS: MAGNESIUM IV SCH (08:19)
[2017-05-04 08:24] VITALS: BP 130/89
[2017-05-04 10:55] VITALS: BP 130/89
[2017-05-08] MEDS: diphenhydrAMINE 50 MG/ML INJ (BENADRYL) IV SCH (08:10)
[2017-05-08] MEDS: ACETAMINOPHEN 325 MG TABLET/CAPLET (TYLENOL) PO SCH (08:10)
[2017-05-08] MEDS: MAGNESIUM IV SCH (08:10)
[2017-05-08 09:00] VITALS: BP 133/91
[2017-05-11] MEDS: MAGNESIUM IV SCH ×2 (08:30→09:30)
[2017-05-11 08:35] VITALS: BP 124/88
[2017-05-11 10:36] VITALS: BP 124/88
[2017-05-15] MEDS: MAGNESIUM IV SCH (08:20)
[2017-05-15] MEDS: ACETAMINOPHEN 325 MG TABLET/CAPLET (TYLENOL) PO SCH (08:20)
[2017-05-15] MEDS: diphenhydrAMINE 50 MG/ML INJ (BENADRYL) IV SCH (08:20)
[2017-05-15 10:37] VITALS: BP 138/95
[2017-05-18] MEDS: MAGNESIUM IV SCH (08:20)
[2017-05-18 08:43] VITALS: BP 143/96
[2017-05-18 10:31] VITALS: BP 143/96
[~2017-05-22] VITALS: Ht 182.9 cm; Wt 80.7 kg
[~2017-05-22] MED LIST changes: +MAGNESIUM 1 GM/100 ML IVPB 200 ML IV ONE
[2017-05-22 08:30] VITALS: BP 143/96
[2017-05-22] MEDS: MAGNESIUM IV SCH (08:35)
[2017-05-22] MEDS: diphenhydrAMINE 50 MG/ML INJ (BENADRYL) IV SCH ×2 (09:16→09:21)
[2017-05-22] MEDS: ACETAMINOPHEN 325 MG TABLET/CAPLET (TYLENOL) PO SCH ×2 (09:17→09:21)
== END | disposition home or self-care (01) ==
LOC: SDC 02-21 08:19
PROVIDERS: ATTEND Family Medicine
DX: E61.2 Magnesium deficiency (principal)
CPT/HCPCS: 36415; 36569; 36592; 76937; 80053; 81000; 83735; 84439; 84443; 85025; 96365; 96366; 96375; 99211

== ENCOUNTER 2017-07-20 08:11 | Outpatient (RCR) | payer MEDICARE, OTHER ==
[2017-05-25 08:10] VITALS: BP 148/96
[2017-05-25] MEDS: MAGNESIUM 1 GM/D5W 100 ML IVPB IV SCH ×2 (08:25→09:25)
[2017-05-29 08:20] VITALS: BP 137/85
[2017-05-29] MEDS: [UNRECOGNIZED DRUG - OTHER] IV SCH (08:25)
[2017-05-29] MEDS: DEXTROSE IV SCH (08:25)
[2017-05-29] MEDS: ACETAMINOPHEN 325 MG TABLET/CAPLET (TYLENOL) PO PRN (09:13)
[2017-05-29] MEDS: diphenhydrAMINE 50 MG/ML INJ (BENADRYL) IV PRN (09:13)
[2017-06-01] MEDS: DEXTROSE IV SCH (08:20)
[2017-06-01] MEDS: [UNRECOGNIZED DRUG - OTHER] IV SCH (08:20)
[2017-06-01] MEDS: ACETAMINOPHEN 325 MG TABLET/CAPLET (TYLENOL) PO PRN (08:21)
[2017-06-01] MEDS: diphenhydrAMINE 50 MG/ML INJ (BENADRYL) IV PRN (08:21)
[2017-06-01 08:22] VITALS: BP 146/90
[2017-06-05] MEDS: DEXTROSE IV SCH ×2 (08:28→09:18)
[2017-06-05] MEDS: [UNRECOGNIZED DRUG - OTHER] IV SCH ×2 (08:28→09:18)
[2017-06-05 10:15] VITALS: BP 133/93
[2017-06-08] MEDS: diphenhydrAMINE 50 MG/ML INJ (BENADRYL) IV PRN (08:44)
[2017-06-08] MEDS: ACETAMINOPHEN 325 MG TABLET/CAPLET (TYLENOL) PO PRN (08:44)
[2017-06-08] MEDS: DEXTROSE IV SCH (08:44)
[2017-06-08] MEDS: [UNRECOGNIZED DRUG - OTHER] IV SCH (08:44)
[2017-06-08 08:45] VITALS: BP 104/81
[2017-06-12] MEDS: [UNRECOGNIZED DRUG - OTHER] IV SCH (08:19)
[2017-06-12] MEDS: DEXTROSE IV SCH (08:19)
[2017-06-12] MEDS: diphenhydrAMINE 50 MG/ML INJ (BENADRYL) IV PRN (08:19)
[2017-06-12 08:20] VITALS: BP 130/79
[2017-06-12] MEDS: ACETAMINOPHEN 325 MG TABLET/CAPLET (TYLENOL) PO PRN (08:20)
[2017-06-15 08:20] VITALS: BP 114/84
[2017-06-15] MEDS: [UNRECOGNIZED DRUG - OTHER] IV SCH (09:30)
[2017-06-15] MEDS: DEXTROSE IV SCH (09:30)
[2017-06-19 08:24] VITALS: BP 122/87
[2017-06-19] MEDS: DEXTROSE IV SCH (08:24)
[2017-06-19] MEDS: [UNRECOGNIZED DRUG - OTHER] IV SCH (08:24)
[2017-06-22] MEDS: [UNRECOGNIZED DRUG - OTHER] IV SCH (08:15)
[2017-06-22] MEDS: DEXTROSE IV SCH (08:15)
[2017-06-22 08:20] VITALS: BP 107/79
[2017-06-22] MEDS: diphenhydrAMINE 50 MG/ML INJ (BENADRYL) IV PRN (09:14)
[2017-06-22] MEDS: ACETAMINOPHEN 325 MG TABLET/CAPLET (TYLENOL) PO PRN (09:14)
[2017-06-26] MEDS: diphenhydrAMINE 50 MG/ML INJ (BENADRYL) IV PRN (08:46)
[2017-06-26] MEDS: ACETAMINOPHEN 325 MG TABLET/CAPLET (TYLENOL) PO PRN (08:46)
[2017-06-26] MEDS: DEXTROSE IV SCH (08:46)
[2017-06-26] MEDS: [UNRECOGNIZED DRUG - OTHER] IV SCH (08:46)
[2017-06-26 10:35] VITALS: BP 127/86
[2017-06-29 08:20] VITALS: BP 109/77
[2017-06-29] MEDS: DEXTROSE IV SCH (08:35)
[2017-06-29] MEDS: [UNRECOGNIZED DRUG - OTHER] IV SCH (08:35)
[2017-07-03] MEDS: DEXTROSE IV SCH (08:26)
[2017-07-03] MEDS: [UNRECOGNIZED DRUG - OTHER] IV SCH (08:26)
[2017-07-03 08:29] VITALS: BP 109/77
[2017-07-06 08:10] VITALS: BP 138/95
[2017-07-06] MEDS: DEXTROSE IV SCH (08:15)
[2017-07-06] MEDS: [UNRECOGNIZED DRUG - OTHER] IV SCH (08:15)
[2017-07-10] MEDS: ACETAMINOPHEN 325 MG TABLET/CAPLET (TYLENOL) PO PRN (08:35)
[2017-07-10] MEDS: diphenhydrAMINE 50 MG/ML INJ (BENADRYL) IV PRN (08:35)
[2017-07-10] MEDS: DEXTROSE IV SCH (08:36)
[2017-07-10] MEDS: [UNRECOGNIZED DRUG - OTHER] IV SCH (08:36)
[2017-07-10 10:40] VITALS: BP 138/95
[2017-07-13] MEDS: DEXTROSE IV SCH (08:11)
[2017-07-13] MEDS: [UNRECOGNIZED DRUG - OTHER] IV SCH (08:11)
[2017-07-13 08:20] VITALS: BP 116/75
[2017-07-13 10:20] VITALS: BP 116/75
[2017-07-17] MEDS: ACETAMINOPHEN 325 MG TABLET/CAPLET (TYLENOL) PO PRN (08:45)
[2017-07-17] MEDS: [UNRECOGNIZED DRUG - OTHER] IV SCH (09:00)
[2017-07-17] MEDS: diphenhydrAMINE 50 MG/ML INJ (BENADRYL) IV PRN (09:00)
[2017-07-17] MEDS: DEXTROSE IV SCH (09:00)
[2017-07-17 10:58] VITALS: BP 132/80
[~2017-07-20] VITALS: Ht 182.9 cm; Wt 80.7 kg
[~2017-07-20 08:11] MED LIST changes: +ACETAMINOPHEN 325 MG TABLET/CAPLET (TYLENOL) PO ONE; +diphenhydrAMINE 50 MG/ML INJ (BENADRYL) IV ONE
[2017-07-20 08:20] VITALS: BP 136/84
[2017-07-20] MEDS: DEXTROSE IV SCH (08:25)
[2017-07-20] MEDS: [UNRECOGNIZED DRUG - OTHER] IV SCH (08:25)
== END 2017-07-26 09:35 | disposition home or self-care (01) ==
LOC: SDC 08:11
PROVIDERS: ATTEND Family Medicine
DX: E83.42 Hypomagnesemia (principal)
CPT/HCPCS: 96365; 96366; 99211

== ENCOUNTER 2017-07-23 09:46 | Emergency (ER) | payer MEDICARE, OTHER ==
[~2017-07-23] VITALS: Ht 188 cm; Wt 81.6 kg
[~2017-07-23 09:46] MED LIST changes: -ACETAMINOPHEN 325 MG TABLET/CAPLET (TYLENOL) PO ONE; -MAGNESIUM 1 GM/100 ML IVPB 200 ML IV ONE; -diphenhydrAMINE 50 MG/ML INJ (BENADRYL) IV ONE
[2017-07-23] MEDS ORDERED: EPINEPHrine INJECTION 1 MG/ML AMP IJ ONE (09:47)
[2017-07-23] MEDS ORDERED: DOPamine DRIP 400,000 MCG/250 ML BAG IV ONE (09:47)
[2017-07-23] MEDS ORDERED: NS 250 ML (IVPB) BAG IV ONE (09:47)
--- OUTSIDE RECORDS SUMMARY | 2017-07-23 09:55 | XMS REPORT | Clinical Summary ---
Author Author [facility] Organization [facility] Address Unknown Phone Unavailable Care Team Providers Care Third Loader Name Role Phone Mary Jane Sanchez MD PCP Source Comments Some departments are not documenting in the electronic medical record. If you do not see the information that you expected, contact Release of Information in the Health Information Management department at [phone] for further assistance in locating additional records.[facility] Allergies Not on File Current Medications Not on file Active Problems Not on file Social History Tobacco Use Types Packs/Day Years Used Date Never Assessed Sex Assigned at Date Recorded Not on file Last Filed Vital Signs Not on file Plan of Treatment Health Maintenance Due Date Last Done Comments HEPATITIS C SCREENING 1957 PHYSICAL (COMPREHENSIVE) 1964 EXAM PERTUSSIS VACCINE 1968 HIV SCREENING 1972 TETANUS VACCINE 1974 COLORECTAL CANCER 04/27/2007 SCREENING SHINGLES VACCINE 2017 INFLUENZA VACCINE 11/20/2017 Results Not on filefrom Last 3 Months
--- OUTSIDE RECORDS SUMMARY | 2017-07-23 10:03 | XMS REPORT ---
Author Author DAVID PARADA Organization [facility] Address [address] [place] [address] Care Team Providers Care Deputy County Clerk Name Role Phone DAVID PARADA Unavailable PROBLEMS Unknown Problems ALLERGIES Substance Reaction Event Type Date Status Morphine Sulfate Unknown Drug Allergy Mar, Active SOCIAL HISTORY No smoking Hx information available PLAN OF CARE Activity Details Follow Up prn Reason: VITAL SIGNS Height 74 in 2016-03-27 Weight 172.4 lbs 2016-03-27 Temperature 97.6 degrees Fahrenheit 2016-03-27 Heart Rate 72 bpm 2016-03-27 Respiratory Rate 22 2016-03-27 BMI 22.13 kg/m2 2016-03-27 Blood pressure systolic 130 mmHg 2016-03-27 Blood pressure diastolic 78 mmHg 2016-03-27 MEDICATIONS Medication Instructions Dosage Frequency Start Date End Date Duration Status Metoprolol Tartrate 100 MG Orally Twice a day 1 tablet with food 12h Active Furosemide 40 MG Orally Once a day 1 tablet 24h Active Levothyroxine Sodium 50 MCG Orally Once a day 1 tablet on an empty stomach in the morning 24h Active Spironolactone 25 MG Orally Twice a day 1 tablet 12h Active Baby Aspirin 81 MG Orally Once a day 1 tablet 24h Active Zofran ODT 8 MG Orally every 8 hrs 1 tablet on the tongue and allow to dissolve 8h Mar, 5 days Active RESULTS Name Result Date Reference Range INFLUENZA A & B (IN HOUSE) 2016-03-27 INFLUENZA A negative INFLUENZA B negative Control + Lot # [id number] Exp date 08 19 17 PROCEDURES Procedure Date Ordered Related Diagnosis Body Site INFLUENZA ASSAY W/OPTIC Mar 27, 2016 ZOFRAN (IM) 2 MG/ML (PER 1 MG) 40 MG/20 ML Mar 27, 2016 Office Visit, Est Pt., Level 3 Mar 27, 2016 THER/PROPH/DIAG INJ, SC/IM Mar 27, 2016 IMMUNIZATIONS Vaccine Route Administration Date Status ZOFRAN (IM) 2 MG/ML (PER 1 MG) 40 MG/20 ML IM Intramuscular Mar 27, 2016 Administered
--- NOTE | 2017-07-23 10:21 | Anesthesia-Procedure Note ---
Procedures/Interventions Procedure Start/Stop/Diagnosis Date of Procedure: Jul 23, 2017 Start Time: 10:05 Referring Physician: Ritesh Preprocedural Diagnosis: Code Rogelio Stop Time: 10:08 Intubation Reason Intubation/Diagnosis: Code Blue RSI: No 100% pre-Ox, [id number]: Yes Intubation Method: orotracheal Videoscope used: Yes Grade View: 1 Mask Ventilation: positive Positive End Tide CO2: Yes Breath Sounds after Intubation: bilateral-equal ETT Securred @ (cm): 23 Intubated with ease: Yes Intubation Complications: no complications Post Procedure No RSI, CCP was performed. No medications given. Intubated during chest compressions. Patient being bagged by RT upon my arrival. Post intubation. CO2 color change positive as well as ETCO2 readings. Care turned over to: Dr. Awad and ED staff ELIZABETH NELSON CRNA Jul 23, 2017 10:21
[2017-07-23 10:49] LABS: BASOPHILS % (AUTO) 1 % (0-10); EOSINOPHILS # (AUTO) 0.1 10^3/uL (0.0-0.3); EOSINOPHILS % (AUTO) 1 % (0-10); HEMATOCRIT 42 % (40-54); HEMOGLOBIN 13.5 G/DL (13.3-17.7); LYMPHOCYTES % (AUTO) 24 % (12-44); MEAN CORPUSCULAR HEMOGLOBIN 33 PG (25-34); MEAN CORPUSCULAR HGB CONC 32 G/DL (32-36); MEAN CORPUSCULAR VOLUME 103 FL (80-99); MONOCYTES # (AUTO) 0.7 X 10^3 (0.0-1.0); MONOCYTES % (AUTO) 8 % (0-12); NEUTROPHILS # (AUTO) 5.4 X 10^3 (1.8-7.8); NEUTROPHILS % (AUTO) 66 % (42-75); PLATELET COUNT 190 10^3/uL (130-400); RED BLOOD COUNT 4.08 10^6/uL (4.35-5.85); RED CELL DISTRIBUTION WIDTH 14.7 % (10.0-14.5); WHITE BLOOD COUNT 8.2 10^3/uL (4.3-11.0)
--- NOTE | 2017-07-23 10:49 | ED CPR ---
HPI-CPR General Stated Complaint: CODE BLUE Source of Information: EMS, Old Records Exam Limitations: No Limitations History of Present Illness Date Seen by Provider: Jul 23, 2017 Time Seen by Provider: 09:50 Initial Comments The patient was brought to the emergency room and by EMS. He had been at home and observed to drop to the floor. This occurred at approximately 08 50. Ambulance reports they arrived at 09 10. The patient has a long cardiac history. He has previously had coronary artery bypass. Records here from late March 2016 when he was to have a bowel resection, he was found to have an elevated troponin and the surgery was deferred. The ambulance crew reports that they had electrical activity throughout most of the effort until they arrived here at 09 50. Our evaluation indeed show this to be true and that it appeared to be a sinus rhythm with regularity. Efforts here including vigorous chest compression bagging through a Combitube and epinephrine IV produced a fleeting palpable pulse which was then lost. Again resuscitation was applied. Attempts were made at intubation and anesthesia arrived to complete this job. He has subsequently had a regular rhythm with relative hypotension. Witnessed Arrest: Yes Bystander CPR: No Paramedics Initial Findings: PEA Tachycardia Pre Hospital Treatment: Bag Valve Mask, Oxygen, Epinephrine (mg) Allergies and Home Medications Allergies Coded Allergies: morphine (Verified Adverse Reaction, Intermediate, CONFUSION, 12/04/14) Home Medications Acetaminophen 325 Mg Tablet, 650 MG PO MoTh, (Reported) Alfuzosin HCl 10 Mg Tab.er.24h, 10 MG PO DAILY@1800 Prescribed by: AIME CANO on 04/29/16 1146 Aspirin 81 Mg Tabec, 81 MG PO Q48H, (Reported) Atorvastatin Calcium 20 Mg Tablet, 20 MG PO DAILY Prescribed by: AIME CANO on 04/29/16 1146 Bethanechol Chloride 25 Mg Tablet, 50 MG PO ACHS Prescribed by: AIME CANO on 04/29/16 114 Diphenhydramine HCl 50 Mg/1 Ml Vial, 25 MG IV MoTh, (Reported) Enalapril Maleate 2.5 Mg Tablet, 2.5 MG PO DAILY Prescribed by: AIME CANO on 04/29/16 114 Fluticasone Propionate 9.9 Ml [place].susp, 1 SPR NS BID PRN for ALLERGIES, ( Reported) Furosemide 40 Mg Tablet, 80 MG PO Q48H, (Reported) TAKES 2 (40MG) TABLETS Hydrocodone Bit/Acetaminophen 1 Each Tablet, 1 TAB PO Q4H PRN for PAIN, ( Reported) Ipratropium/Albuterol Sulfate 3 Ml Ampul.neb, 3 ML IH QID, (Reported) Levothyroxine Sodium 50 Mcg Tablet, 50 MCG PO DAILY, (Reported) Magnesium Sulfate/D5w 1 Gm/100 Ml Piggyback, 2 GM IV MoTh, (Reported) Metoprolol Tartrate 100 Mg Tablet, 100 MG PO BID, (Reported) Multivitamin 1 Each Tablet, 1 TAB PO DAILY, (Reported) Omeprazole 40 Mg Capsule.dr, 40 MG PO BID Prescribed by: AIME CANO on 04/29/16 1146 Potassium Chloride 20 Meq Tab.er.prt, 30 MEQ PO Q48H, (Reported) TAKES 1 & 1/2 (20MEQ) TABLET Spironolactone 25 Mg Tablet, 25 MG PO DAILY, (Reported) Sucralfate 1 Gm Tablet, 1 GM PO ACHS Prescribed by: AIME CANO on 04/29/16 1146 Vitamin B Complex 1 Each Tablet, 100 MG PO DAILY, (Reported) [Finasteride] 5 MG TAB, 5 MG PO DAILY Prescribed by: AIME CANO on 04/29/16 1146 Patient Home Medication List Home Medication List Reviewed: Yes Review of Systems Constitutional: see HPI Respiratory: See HPI Cardiovascular: See HPI Past Yefeskd-Rktlrm-Islvrj Hx Patient Social History Alcohol Beverage of Choice: Beer Type Used: Cigarettes Former Smoker, Quit: Mar 28, 2013 Recent Hopitalizations: Yes Immunizations Up To Date Tetanus Booster (TDap): Unknown PED Vaccines UTD: No Date of Pneumonia Vaccine: Nov 21, 2015 Date of Influenza Vaccine: Nov 21, 2015 Past Medical History Surgeries: Yes (Left/right carotid, back (rods), neck sx, right leg, left ankle , GI BLEED) Bowel Surgery, CABG, Orthopedic, Vascular Surgery Respiratory: Yes (COPD, Home 02 at 2.5L ) Pneumonia, COPD Currently Using CPAP: No Currently Using BIPAP: No Cardiac: Yes (CABG nov 2014, hypomagnesemia, low sodium level) Coronary Artery Disease, Hypertension Neurological: No Reproductive Disorders: No Sexually Transmitted Disease: No HIV/AIDS: No Genitourinary: Yes (RETENTION) Gastrointestinal: No (inguinal hernia) Gastroesophageal Reflux, Gastrointestinal Bleed, Obstructive Bowel Musculoskeletal: Yes Back Injury, Chronic Back Pain Endocrine: No HEENT: Yes Cataract Loss of Vision: Denies Hearing Impairment: Denies Cancer: Yes Skin Psychosocial: No Integumentary: No Blood Disorders: No Adverse Reaction/Blood Tranf: No Family Medical History Diabetes mellitus 19 FATHER 19 MOTHER FH: COPD (chronic obstructive pulmonary disease) 19 MOTHER Hypertension 19 FATHER 19 MOTHER Prostate cancer 19 FATHER No Pertinent Family Hx Physical Exam Vital Signs Capillary Refill : General Appearance: Other HEENT: Normal ENT Inspection Neck: Normal Inspection Respiratory: Decreased Breath Sounds (distant with bagging) Cardiovascular: Regular Rate, Rhythm Gastrointestinal: Other (distended and tympanitic) Extremity: No Pedal Edema Neurologic/Psychiatric: Other (unresponsive) Procedures/Interventions Reason for Intubation: Code Blue Date of ETT Placement: Apr 04, 2016 Intubation Method: orotracheal Positive End Tide CO2: Yes Breath Sounds after Intubation: bilateral-equal Intubation Complications: no complications Progress/Results/Core Measures Results/Orders Lab Results Laboratory Tests Test 07/23/17 10:00 07/23/17 10:43 07/23/17 11:42 Range/Units White Blood Count 8.2 4.3-11.0 10^3/uL Red Blood Count 4.08 L 4.35-5.85 10^6/uL Hemoglobin 13.5 13.3-17.7 G/DL Hematocrit 42 40-54 % Mean Corpuscular Volume 103 H 80-99 FL Mean Corpuscular Hemoglobin 33 25-34 PG Mean Corpuscular Hemoglobin Concent 32 32-36 G/DL Red Cell Distribution Width 14.7 H 10.0-14.5 % Platelet Count 190 130-400 10^3/uL Mean Platelet Volume 10.0 7.4-10.4 FL Neutrophils (%) (Auto) 66 42-75 % Lymphocytes (%) (Auto) 24 12-44 % Monocytes (%) (Auto) 8 0-12 % Eosinophils (%) (Auto) 1 0-10 % Basophils (%) (Auto) 1 0-10 % Neutrophils # (Auto) 5.4 1.8-7.8 X 10^3 Lymphocytes # (Auto) 2.0 1.0-4.0 X 10^3 Monocytes # (Auto) 0.7 0.0-1.0 X 10^3 Eosinophils # (Auto) 0.1 0.0-0.3 10^3/uL Basophils # (Auto) 0.0 0.0-0.1 10^3/uL Neutrophils % (Manual) 48 % Lymphocytes % (Manual) 36 % Monocytes % (Manual) 7 % Metamyelocytes % 4 % Band Neutrophils 5 % Blood Morphology Comment NORMAL Sodium Level 125 *L 135-145 MMOL/L Potassium Level 5.9 H 3.6-5.0 MMOL/L Chloride Level 89 L 98-107 MMOL/L Carbon Dioxide Level 12 L 21-32 MMOL/L Anion Gap 24 H 5-14 MMOL/L Blood Urea Nitrogen 34 H 7-18 MG/DL Creatinine 2.20 H 0.60-1.30 MG/DL Estimat Glomerular Filtration Rate 31 BUN/Creatinine Ratio 15 Glucose Level 152 H 70-105 MG/DL Calcium Level 8.9 8.5-10.1 MG/DL Magnesium Level 2.9 H 1.8-2.4 MG/DL Total Bilirubin 0.8 0.1-1.0 MG/DL Aspartate Amino Transf (AST/SGOT) 58 H 5-34 U/L Alanine Aminotransferase (ALT/SGPT) 31 0-55 U/L Alkaline Phosphatase 121 40-136 U/L Troponin I < 0.30 <0.30 NG/ML Total Protein 7.2 6.4-8.2 GM/DL Albumin 3.6 3.2-4.5 GM/DL Smear Scan Blood Gas Puncture Site NA L RAD Blood Gas Patient Temperature 94.4 95.8 Arterial Blood pH 6.98 *L 7.15 *L 7.37-7.43 Arterial Blood Partial Pressure CO2 82 *H 62 H 35-45 MMHG Arterial Blood Partial Pressure O2 172 H 265 H 79-93 MMHG Arterial Blood HCO3 19 L 22 L 23-27 MMOL/L Arterial Blood Total CO2 21.9 23.6 21.0-31.0 MMOL/L Arterial Blood Oxygen Saturation 98 100 94-100 % Arterial Blood Base Excess -11.5 L -6.3 L -2.5-2.5 MMOL/L Aubrey Test YES-POS YES-POS Blood Gas Ventilator Setting NO YES Blood Gas Inspired Oxygen 100% AMBU BAG 15 My Orders Orders - BHUMIKA VELASQUEZ MD Ct Head Wo (07/23/17 ) Chest 1 View, Ap/Pa Only (07/23/17 10:37) Ekg Tracing (07/23/17 10:37) Arterial Blood Gas (07/23/17 10:37) Cbc With Automated Diff (07/23/17 10:37) Comprehensive Metabolic Panel (07/23/17 10:37) Troponin I (07/23/17 10:37) Ct Chest/Abdomen/Pelvis Wo (07/23/17 10:37) Arterial Blood Gas (07/23/17 11:42) Manual Differential (07/23/17 10:00) Ns Iv 1000 Ml (Sodium Chloride 0.9%) (07/23/17 16:45) Ns Iv 1000 Ml (Sodium Chloride 0.9%) (07/23/17 16:45) Epinephrine 1 Mg Injection (Adrenalin I (07/23/17 09:47) Dopamine Drip (Dopamine Drip) (07/23/17 09:47) Ns (Ivpb) (Sodium Chloride 0.9%) (07/23/17 09:47) Ns Iv 1000 Ml (Sodium Chloride 0.9%) (07/23/17 16:39) Arterial Blood Draw (07/23/17 ) Arterial Blood Draw (07/23/17 ) Iv Infusion <= First Hr Ed (07/23/17 ) Vital Signs/I&O Critical Care Note Critical Care Start Time: 10:05 Stop Time: 10:08 Departure Communication (Admissions) [id number] spoke to [facility] and ultimately Dr. Gunter from cardiology. He accepted the patient in admission to the ICU. Given the history and lab results that I gave him he is not enthusiastic about survival. The patient will be sent by Impression Primary Impression: cardiac arrest and code Additional Impression: suspect ventricular tachycardia Disposition: XFER SHT-TRM HOSP Condition: Improved Transfer Time Spoke to Accepting Phy: 12:18 Departure-Patient Inst. Referrals: AIME CANO DO (PCP/Family) Primary Care Physician BHUMIKA VELASQUEZ MD Jul 23, 2017 10:49
[2017-07-23 10:51] LABS: ABG BASE EXCESS -11.5 MMOL/L (-2.5-2.5); ABG OXYGEN SATURATION 98 % (94-100); ABG PO2 172 MMHG (79-93); ABG TCO2 21.9 MMOL/L (21.0-31.0)
[2017-07-23 10:52] LABS: ABG PH 6.98 (7.37-7.43)
[2017-07-23 10:53] LABS: ABG PCO2 82 MMHG (35-45); ALLENS TEST YES-POS; INSPIRED O2 100% AMBU BAG; PATIENT TEMP 94.4; VENTILATOR NO
[2017-07-23 11:02] LABS: ALANINE AMINOTRANSFERASE 31 U/L (0-55); ALBUMIN 3.6 GM/DL (3.2-4.5); ALKALINE PHOSPHATASE 121 U/L (40-136); BILIRUBIN,TOTAL 0.8 MG/DL (0.1-1.0); BUN/CREATININE RATIO 15; CALCIUM 8.9 MG/DL (8.5-10.1); CARBON DIOXIDE 12 MMOL/L (21-32); CHLORIDE 89 MMOL/L (98-107); GFR ESTIMATED 31; GLUCOSE 152 MG/DL (70-105); TOTAL PROTEIN 7.2 GM/DL (6.4-8.2)
[2017-07-23 11:05] LABS: SODIUM 125 MMOL/L (135-145)
[2017-07-23 11:06] LABS: POTASSIUM 5.9 MMOL/L (3.6-5.0)
--- NOTE | 2017-07-23 11:06 | Consultation-Cardiology ---
HPI-Cardiology Cardiology Consultation Date of Consultation 07/23/17 Date of Admission Time Seen by Provider: 10:59 Indication: CODE BLUE HPI 62 years old gentleman with history of coronary artery disease, hypertension hyperlipidemia, paroxysmal atrial fibrillation, was in the bathroom when he fell to the floor, was extremely weak and was unable to get up. The called the neighbor to help him out then he became unresponsive, EMS were called , patient had pulseless electrical activity, he was coded for about 40 minutes, brought to the emergency room, at arrival he had pulse then pulse was lost again. Coded again then responded, he is currently in sinus tachycardia/sinus rhythm and borderline hypotension. Intubated and unresponsive, did not receive any sedation. Pupils are dilated and fixed Home Medications & Allergies Allergies: Coded Allergies: morphine (Verified Adverse Reaction, Intermediate, CONFUSION, 12/04/14) Home Medication List Reviewed: No Unable to provide medication list [id number] Hx Patient Social History Marital Status: Former smoker/When Quit: May 08, 2014 Type Used: Cigarettes Recent Hopitalizations: Yes Immunizations Up To Date Tetanus Booster (TDap): Unknown Date of Pneumonia Vaccine: Nov 21, 2015 Date of Influenza Vaccine: Nov 21, 2015 Past Medical History Past medical history as discussed below Family Medical History Significant Family History: No Pertinent Family Hx Family History: Diabetes mellitus 19 FATHER 19 MOTHER FH: COPD (chronic obstructive pulmonary disease) 19 MOTHER Hypertension 19 FATHER 19 MOTHER Prostate cancer 19 FATHER Constitutional: other (unable to provide review of systems due to her current condition) Reviewed Test Results Reviewed Test Results Lab Laboratory Tests Test 07/23/17 10:00 07/23/17 10:43 Range/Units White Blood Count 8.2 4.3-11.0 10^3/uL Red Blood Count 4.08 L 4.35-5.85 10^6/uL Hemoglobin 13.5 13.3-17.7 G/DL Hematocrit 42 40-54 % Mean Corpuscular Volume 103 H 80-99 FL Mean Corpuscular Hemoglobin 33 25-34 PG Mean Corpuscular Hemoglobin Concent 32 32-36 G/DL Red Cell Distribution Width 14.7 H 10.0-14.5 % Platelet Count 190 130-400 10^3/uL Mean Platelet Volume 10.0 7.4-10.4 FL Neutrophils (%) (Auto) 66 42-75 % Lymphocytes (%) (Auto) 24 12-44 % Monocytes (%) (Auto) 8 0-12 % Eosinophils (%) (Auto) 1 0-10 % Basophils (%) (Auto) 1 0-10 % Neutrophils # (Auto) 5.4 1.8-7.8 X 10^3 Lymphocytes # (Auto) 2.0 1.0-4.0 X 10^3 Monocytes # (Auto) 0.7 0.0-1.0 X 10^3 Eosinophils # (Auto) 0.1 0.0-0.3 10^3/uL Basophils # (Auto) 0.0 0.0-0.1 10^3/uL Blood Gas Puncture Site NA Blood Gas Patient Temperature 94.4 Arterial Blood pH 6.98 *L 7.37-7.43 Arterial Blood Partial Pressure CO2 82 *H 35-45 MMHG Arterial Blood Partial Pressure O2 172 H 79-93 MMHG Arterial Blood HCO3 19 L 23-27 MMOL/L Arterial Blood Total CO2 21.9 21.0-31.0 MMOL/L Arterial Blood Oxygen Saturation 98 94-100 % Arterial Blood Base Excess -11.5 L -2.5-2.5 MMOL/L Aubrey Test YES-POS Blood Gas Ventilator Setting NO Blood Gas Inspired Oxygen 100% AMBU BAG Physical Exam Vital Signs Capillary Refill : General Appearance: Obese, Severe Distress Eyes: Bilateral Eye Normal Inspection HEENT: Other (intubated) Neck: Supple, JVD Respiratory: Crackles, Respiratory Distress Cardiovascular: Regular Rate, Rhythm, No Murmur, Systolic Murmur, Gallop/S3 Gastrointestinal: Abnormal Bowel Sounds, Distended Rectal: Deferred Back: Normal Inspection Extremity: Other (cyanosis with slow refill) Neurologic/Psychiatric: Other (intubated and unresponsive) Skin: Cyanosis A/P-Cardiology Admission Diagnosis Cardiac arrest Acute respiratory failure Hypotension Coronary artery disease Assessment/Plan Status post cardiac arrest, unknown etiology, probably malignant arrhythmia, patient had prolonged code outside the hospital, I will monitor at this time, supportive blood pressure and monitor for arrhythmia. EKG showed ST depression with nonspecific finding could be due to the prolonged hypoxemia Respiratory failure, acute, intubated and ventilator dependent. Hypotension, receiving IV fluid, continue with IV fluid at this time, we'll consider the use of pressors if needed Metabolic acidosis, due to prolonged code. Intubated. Managed by medical team Acute renal failure. History of chronic renal insufficiency History of coronary artery disease, history of CABG, patient was seen by Dr. Duran as an outpatient and followed there, last evaluation was in January. Status post elevation in troponin in April 2016, recommended cardiac catheterization but patient deferred and requested to discuss it with his primary independent crop consultant as an outpatient History of paroxysmal atrial fibrillation, currently in sinus tachycardia, could not tolerate oral anticoagulation due to severe anemia and multiple blood transfusion Chronic hypomagnesemia, has been on magnesium as an outpatient. Carotid stenosis, history of carotid endarterectomy by Dr. Spencer as an outpatient PAYTON BUTCHER MD Jul 23, 2017 11:06
--- NOTE | 2017-07-23 11:21 | Diagnostic Imaging Report ---
PROCEDURE: CT head without contrast. TECHNIQUE: Multiple contiguous axial images were obtained through the brain without the use of intravenous contrast. INDICATION: Unresponsive and CODE BLUE Comparison is made to study of 12/01/2011. Ventricles and sulci remain diffusely prominent. There is no evidence of geographic low density to indicate territorial infarction. There is no abnormal mass effect or shift of midline structures. The calvarium is intact and the visualized paranasal sinuses are clear. IMPRESSION: Mild senescent findings in the brain without CT evidence of acute intracranial abnormality or significant change from previous study. Dictated by: Dictated on workstation # [id number]
--- NOTE | 2017-07-23 11:32 | Diagnostic Imaging Report ---
PROCEDURE: CT chest, abdomen, and pelvis without contrast. TECHNIQUE: Multiple contiguous axial images were obtained through the chest, abdomen, and pelvis without the use of intravenous contrast. INDICATION: Unresponsive Comparison: CT abdomen and pelvis dated 11/25/[address] of the chest dated March 17, 2015. Findings: Left-sided PICC line is in place with the distal tip at the cavoatrial junction. Enteric catheter is present with the distal tip extending to the GE junction. Endotracheal tube is in place with the distal tip terminating above the level of the ana. Postsurgical changes of a CABG. The cardiac size is slightly enlarged. Mild scattered vascular calcifications. No aneurysmal dilatation of the thoracic aorta. No significant pericardial effusion. Moderate left and small right pleural effusions. Intralobular septal thickening is identified bilaterally, most prominent posteriorly. Dense opacities are identified within the bilateral lower lobes, left greater than right. No pneumothorax. No significant adenopathy, though evaluation is limited secondary to lack of intravenous contrast. Bilateral retroareolar densities are present, favored related to gynecomastia. Postsurgical changes within the cervicothoracic spine. Degenerative changes within the right shoulder with associated right shoulder joint effusion. Chronic posterior right-sided rib fractures are identified inferiorly. There is nonunion of the right 10th rib fracture. No acute osseous abnormality within the chest. The unenhanced liver, spleen, adrenal glands, and pancreas are grossly unremarkable. No evidence of hydronephrosis. Extensive vascular calcifications within abdominal aorta without aneurysmal dilatation of abdominal aorta. The urinary bladder is decompressed by a Helms catheter, therefore not well evaluated. A large left inguinal hernia is identified. The hernia sac contains a significant amount of descending and sigmoid colon. The sigmoid colon distal to this location is completely decompressed. Multiple loops of dilated small bowel are identified. Loops of small bowel measure up to just under 5 cm. No definite discrete transition point is identified. Fluid containing small right inguinal hernia. Mild fat stranding and fluid identified throughout the abdomen and pelvis. No free air. No pneumatosis. Postsurgical changes within the lumbar spine. Scattered osseous degenerative changes with out acute osseous abnormality. Grade 1 anterolisthesis of L4 on L5. IMPRESSION: Colon containing left inguinal hernia, appearing large in size. The hernia sac is also filled with fluid. No definite obstruction secondary to this hernia sac as the colon immediately proximal to this location is not dilated. Multiple dilated loops of small bowel. No definite discrete transition point is identified, though possible transition is seen within the right lower abdomen. This suggests possible small bowel obstruction. Moderate left and small right pleural effusions with adjacent opacities. Given significant fat densities within the left lower lobe, infiltrate within the left lower lobe is likely. Cardiomegaly. Fluid containing small right inguinal hernia. Additional postsurgical and chronic findings as described above. Report was faxed to [facility] by edna at 11:33 am. Dictated by: Dictated on workstation # [id number]
--- NOTE | 2017-07-23 11:41 | Diagnostic Imaging Report ---
Portable supine AP chest at 11 o'clock. INDICATION: Unresponsive The cardiomegaly and the sternotomy wires and surgical clips and the left lower lobe atelectasis/infiltrate and left pleural effusion seen on the prior exam of 04/10/2017 are again evident. The abnormal density in the left lung base has decreased somewhat since the prior study. The left upper lung and right lung remain generally clear. The mediastinum is not widened. The osseous structures are intact. Healed fractures of the lower ribs on the left are again noted. In the interval since the prior exam the patient has been intubated. The ET tube tip appears to be in good position overlying the midportion of the tracheal air shadow. There has also been insertion of an NG line. The tip of line overlies the distal esophagus however and could be advanced another 10 CM to assure it is well within the stomach. IMPRESSION: 1. There is persistent cardiomegaly and left lower lobe pneumonia/atelectasis and a left pleural effusion. The left lung base does seem somewhat better aerated than on prior exam. 2. There is no acute cardiopulmonary abnormality noted otherwise. 3. The patient has been intubated and ET tube appears to be in good position. The tip of the NG line could be advanced another 10 cm however. Dictated by: Dictated on workstation # [id number]
[2017-07-23 11:50] LABS: ABG BASE EXCESS -6.3 MMOL/L (-2.5-2.5); ABG OXYGEN SATURATION 100 % (94-100); ABG PCO2 62 MMHG (35-45); ABG PO2 265 MMHG (79-93); ABG TCO2 23.6 MMOL/L (21.0-31.0)
[2017-07-23 11:52] LABS: ABG PH 7.15 (7.37-7.43)
[2017-07-23 11:53] LABS: ALLENS TEST YES-POS; INSPIRED O2 15; PATIENT TEMP 95.8; VENTILATOR YES
[2017-07-23 11:58] LABS: BAND NEUTROPHILS 5 %; LYMPHOCYTES % (MANUAL) 36 %; METAMYELOCYTES % 4 %; MONOCYTES % (MANUAL) 7 %; NEUTROPHILS % (MANUAL) 48 %; RBC MORPH NORMAL
[2017-07-23 13:15] VITALS: BP 141/114
[2017-07-23] MEDS ORDERED: NS IV 1000 ML 1,000 ML ONE (16:39)
[2017-07-23] MEDS ORDERED: NS 1000 ML IV BAG IV ONE ×2 (16:45)
== END 2017-07-23 13:15 | disposition short-term general hospital (02) ==
LOC: ER 09:46 → EDUNIT# 09:46 → ER 13:15
DX: I46.9 Cardiac arrest, cause unspecified (principal); J44.9 Chronic obstructive pulmonary disease, unspecified; I25.10 Atherosclerotic heart disease of native coronary artery without angina pectoris; I10 Essential (primary) hypertension; K21.9 Gastro-esophageal reflux disease without esophagitis; Z95.1 Presence of aortocoronary bypass graft; Z87.19 Personal history of other diseases of the digestive system; Z80.42 Family history of malignant neoplasm of prostate; Z85.828 Personal history of other malignant neoplasm of skin; Z88.5 Allergy status to narcotic agent; Z79.82 Long term (current) use of aspirin; Z79.51 Long term (current) use of inhaled steroids; Z87.891 Personal history of nicotine dependence; Z87.01 Personal history of pneumonia (recurrent)
CPT/HCPCS: 31500; 36415; 36600; 70450; 71045; 71250; 74176; 80053; 82805; 83735; 84484; 85007; 85027; 92950; 93005; 93041; 96361; 96365; 99291; 99292